=== PATIENT | female | born 1955 | race Caucasian/White ===

== ENCOUNTER 2020-08-20 12:35 | Outpatient (CLI) | payer MEDICARE, MEDICAID, SELFPAY ==
--- NOTE | ~2020-08-20 | DEXA_ITS ---
Bone Density Report Name: Dana Mejia Age: 64 Sex: Female Ethnicity: White Date of : 1955 Indication: postmenopausal; screening for osteoporosis; height loss; cancer; hysterectomy; Referring Provider: Anselmo Lynn Study: Bone densitometry was performed. Exam Date: August 20, 2020 Accession number: [id number] Bone Density: Region BMD T-score Z-score Classification AP Spine(L2, L3, L4) 1.130 0.5 2.1 Normal Femoral Neck (Left) 0.809 -0.4 1.0 Normal Total Hip (Left) 0.842 -0.8 0.3 Normal Femoral Neck (Right) 0.752 -0.9 0.5 Normal Total Hip (Right) 0.837 -0.9 0.2 Normal Femoral Neck Mean 0.780 -0.6 0.8 Normal Total Hip Mean 0.839 -0.8 0.3 Normal World Health Organization criteria for BMD impression classify patients as: Normal (T-score at or above -1.0), Osteopenia (T-score between -1.0 and -2.5), or Osteoporosis (T-score at or below -2.5). 10-year Fracture Risk: FRAX not reported because: All T-scores for Spine Total, Hip Total, Femoral Neck at or above -1.0 Clinical Information Provided by Patient: Has the following medical conditions: Cancer, Hysterectomy Patient maximum height was 67 Menopause Age: 49 No regular weight bearing exercise Drinks caffeinated beverages Onset of menses at age 18 Number of children 3 Impression: The patient has normal bone mass. Discussion: BONE DENSITY IS ABOVE THE MINIMUM DESIRABLE LEVEL AT ALL SKELETAL SITES TESTED. This patient?s bone mineral density is above the minimum desirable level (T-score -1.0 or better) at all sites measured. The patient should follow a healthful lifestyle (good nutrition with adequate calcium and vitamin D, and appropriate weight-bearing exercise). Follow-Up: Consider repeating this study in 5 years or sooner if there is some new clinical indication. Reported by: Dr. Jose Daniel Edward on 08/20/2020 1:22:00 PM. Reviewed, dictated and finalized at location [facility]
== END 2020-08-20 12:36 | disposition home or self-care (01) ==
LOC: CHSIMG 12:39
PROVIDERS: PCP Family Medicine
DX: Z79.811 Long term (current) use of aromatase inhibitors (principal)
CPT/HCPCS: 77080

== ENCOUNTER 2022-09-15 14:30 | Emergency (ER) | payer MEDICARE, MEDICAID, SELFPAY ==
--- NOTE | ~2022-09-15 | XR_ITS ---
EXAMINATION: XR chest 1V portable DATE: 09/15/2022 15:48 INDICATION: Frequent falls. Dizziness. Generalized weakness. TECHNIQUE: Portable AP upright view of the chest was obtained. COMPARISON: Chest radiograph dated 08/05/2018 FINDINGS: Lungs remain clear with no focal airspace opacities, pulmonary edema, pleural effusion or pneumothora x. Heart size is normal. Suggestion of interval left mastectomy. IMPRESSION: 1. No acute cardiopulmonary disease. Reviewed, dictated and finalized at location A.
--- NOTE | ~2022-09-15 | CT_ITS ---
EXAMINATION: CT brain wo con DATE: 09/15/2022 15:48 INDICATION: falling-FREQUENT,DIZZY,GENERAL WEAKNESS . TECHNIQUE: Computed tomography (CT) of the head was performed without intravenous contrast. The mA wa s adjusted according to patient size. Iterative reconstruction technique was employed. The dose-lengt h product was 605.33 mGy-cm. COMPARISON: 08/05/2018. FINDINGS: No acute intracranial hemorrhage or extra-axial fluid collection. No hydrocephalus, mass, or herniation. No acute ischemic infarct. Unremarkable dural venous sinus attenuation. No acute osseous abnormality. The aerated spaces are clear. Mild atrophy and chronic white matter change. Atherosclerotic intracranial calcification. Left medial occipital encephalomalacia, likely old infarct. Bilateral lens replacements. IMPRESSION: No acute intracranial process. Reviewed, dictated and finalized at location K.
[2022-09-15 15:00] VITALS: BP 96/54; PULSE 84; RESP 20; TEMP 36.6; O2SAT 93
--- NOTE | 2022-09-15 15:17 | ECG_ITS ---
Measurements Intervals [facility] Rate: 73 P: 67 [place]: 165 QRS: 1 QRSD: 86 T: 42 QT: 396 QTc: 439 Interpretive Statements SINUS RHYTHM EARLY PRECORDIAL R/S TRANSITION VOLTAGE CRITERIA FOR LVH MINIMAL Q WAVES- ANTEROLATERAL LEADS BORDERLINE ECG NO PREVIOUS ECG AVAILABLE FOR COMPARISON Electronically Signed On 09-15-2022 15:38:24 CDT by Alexandr Villela D.O.
--- NOTE | 2022-09-15 15:17 | ED.DIZZY ---
HPI - Dizziness General Chief Complaint: Dizziness Stated Complaint: dizziness Time Seen by Provider: 09/15/22 15:13 Source: patient Mode of arrival: EMS Limitations: no limitations History of Present Illness HPI Narrative: 66 year old female arrives to the Emergency Department via EMS. Patient has fallen 5 times since yesterday. Patient was started on Zoloft yesterday. States she has some headache, but did not hit her head. Denies chest pain, shortness of breath, palpitations. No recent illness. No nausea, vomiting, diarrhea. Denies any injury from fall. States she has no pre-fall symptoms. MD elicited complaint: disequilibrium Onset (ago): day(s) Timing: sudden onset Description: off-balance and difficulty walking Context: change in medication History of similar symptoms: No Exacerbating factors: nothing Relieving factors: nothing Associated symptoms: denies other symptoms Related Data Home Medications Medication Instructions Recorded Confirmed aspirin 81 mg tablet,delayed 81 mg PO DAILY 09/15/22 09/15/22 release atorvastatin 40 mg tablet 40 mg PO DAILY 09/15/22 09/15/22 clopidogrel 75 mg tablet 75 mg PO DAILY 09/15/22 09/15/22 duloxetine 30 mg capsule,delayed 30 mg PO BID 09/15/22 09/15/22 release furosemide 20 mg tablet 20 mg PO DAILY 09/15/22 09/15/22 hydroxyzine pamoate 50 mg capsule 100 mg PO HS 09/15/22 09/15/22 letrozole 2.5 mg tablet 2.5 mg PO DAILY 09/15/22 09/15/22 lisinopril 10 mg tablet 10 mg PO DAILY 09/15/22 09/15/22 omeprazole 40 mg capsule,delayed 40 mg PO DAILY 09/15/22 09/15/22 release risperidone 2 mg tablet 2 mg PO HS 09/15/22 09/15/22 sertraline 50 mg tablet (Zoloft) 50 mg PO DAILY 09/15/22 09/15/22 trazodone 100 mg tablet 100 mg PO HS 09/15/22 09/15/22 Allergies Allergy/AdvReac Type Severity Reaction Status Date / Time No Known Drug Allergies Allergy Unknown Uncoded 03/27/22 13:31 Review of Systems Review of Systems: All systems reviewed & are unremarkable except as noted in HPI and below Constitutional: Constitutional: Reports as per HPI, Reports no additional constitutional complaints, Denies chills, Denies fatigue, Denies fever(s) and Denies weakness Eyes: Eyes: Reports as per HPI, Reports no additional eye complaints and Denies change in vision ENT: Reports system reviewed and no additional complaints, except as documented Cardiovascular: Cardiovascular: Reports as per HPI, Reports no additional cardiovascular complaints, Denies chest pain, Denies rapid heart rate and Denies slow heart rate Respiratory: Respiratory: Reports as per HPI, Reports no additional respiratory complaints, Denies cough and Denies dyspnea Gastrointestinal: Gastrointestinal: Reports as per HPI, Reports no additional gastrointestinal complaints, Denies abdominal pain, Denies diarrhea, Denies nausea and Denies vomiting Genitourinary: Genitourinary: Reports no additional female genitourinary complaints, Denies nocturia and Denies dysuria Musculoskeletal: Musculoskeletal: Reports no additional musculoskeletal complaints Integumentary/Breasts: Skin/Breast: Reports system reviewed and no additional complaints, except as docu and Denies rash Neurologic: Reports system reviewed and no additional complaints, except as documented, Denies syncope, Reports headache(s), Denies focal weakness, Denies numbness and Denies weakness Exam Const: General: healthy appearing, no acute distress and alert Nutritional Appearance: well nourished Orientation/consciousness: patient oriented x3 Limitations: no limitations HENMT: Head: normal to inspection Ears: TM's normal bilaterally Face/Nose/Sinus: Normal external nose present Face and sinus: normal facial exam Mouth: Yes Normal oral and palatal mucosa present Throat: posterior oropharynx normal Eyes: Conjunctivae: conjunctivae normal Pupils: Equal, round and reactive pupils present EOM: EOMs intact bilaterally Direct Ophthalmoscopy: no photophobia Neck: Neck: norm
[2022-09-15 15:30] VITALS: BP 109/59; PULSE 81; RESP 20; O2SAT 91
[2022-09-15 16:08] LABS: Basophils Absolute Auto 0.02 K/mm3 (0.00-0.10); Basophils Percent Auto 0.3 % (0.0-1.0); Eosinophils Absolute Auto 0.01 K/mm3 (0.02-0.50); Eosinophils Percent Auto 0.1 % (1.0-6.0); Hematocrit 26.9 % (35.0-49.0); Hemoglobin 8.6 g/dL (12.0-15.0); Immature Granulocyte Absolute 0.04 K/mm3 (0.00-0.00); Immature Granulocyte Percent A 0.6 % (0.0-0.0); Lymphocytes Absolute Auto 0.62 K/mm3 (1.10-4.50); Lymphocytes Percent Auto 9.3 % (18.0-42.0); Mean Corpuscular Hemoglobin 29.5 pg (27.0-31.0); Mean Corpuscular Volume 92.1 fL (78.0-102.0); Mean Platelet Volume 9.5 fl (9.2-11.8); Monocytes Absolute Auto 0.56 K/mm3 (0.10-0.90); Monocytes Percent Auto 8.4 % (2.0-11.0); Neutrophils Absolute Auto 5.5 K/mm3 (1.7-7.2); Neutrophils Percent Auto 81.3 % (50.0-70.0); Platelet Count Result 211 K/mm3 (150-420); Red Blood Count 2.92 M/mm3 (4.20-5.40); Red Cell Distribution Width 13.9 % (11.6-14.4); White Blood Count 6.7 K/mm3 (4.8-10.8)
[2022-09-15 16:30] VITALS: BP 127/68; PULSE 79; RESP 20; O2SAT 90
[2022-09-15 16:33] LABS: Albumin Level 2.5 g/dL (3.4-5.0); Alkaline Phosphatase 116 U/L (46-116); Anion Gap 11 mmol/L (8-16); Aspartate Amino Transferase 26 U/L (15-37); Bilirubin,Total 0.2 mg/dL (0.00-1.00); Blood Urea Nitrogen 49 mg/dL (7-18); Calcium 7.9 mg/dL (8.5-10.1); Carbon Dioxide 23 mmol/L (21-32); Chloride 99 mmol/L (98-108); Estimated CRCL calculation 14 ml/min; Estimated Glomerular Filt Rate 13; Glucose 255 mg/dL (70-99); Magnesium 1.7 mg/dL (1.8-2.4); Osmolality Calculated 298 mOsm/kg (285-295); Potassium 4.1 mmol/L (3.5-5.1); Sodium 133 mmol/L (136-145); Total Protein 6.7 g/dL (6.4-8.2); Troponin I 11.2 ng/L (0.00-60.4)
[2022-09-15 16:35] LABS: Appearance Urine Clear (Clear); Bilirubin Urine Negative (Negative); Blood Urine 1+ (Negative); Color Urine Light Yellow (Yellow); Glucose Urine UA Trace (Negative); Ketones Urine Negative (Negative); Leukocyte Esterase Ur 2+ (Negative); Nitrate Urine Negative (Negative); Protein Urine 2+ (Negative); Specific Grav Ur 1.015 (1.010-1.020); Urobilinogen Urine 0.2 mg/dL (0.2-1.0)
[2022-09-15 16:38] LABS: Lactic Acid Reflex 1.1 mmol/L (0.4-2.0)
[2022-09-15 16:44] LABS: Add Urine Microscopic? YES
[2022-09-15 16:45] LABS: Amphetamine Screen Urine Negative (Negative); Barbiturate Screen Urine Negative (Negative); Benzodiazepines Screen Urine Negative (Negative); Cannabinoid Screen Urine Negative (Negative); Cocaine Screen Urine Negative (Negative); Methadone Screen Urine Negative (Negative); Opiate Screen Urine Negative (Negative); Phencyclidine Screen Urine Negative (Negative)
[2022-09-15 16:45] LABS: Bacteria Urine 4+ /hpf; Renal Epithelial Cells Urine Few /hpf; Squamous Epithelial Cell Urine Few /hpf (Few); WBC Urine >75 /hpf (0-3)
[2022-09-15 16:46] LABS: Alanine Aminotransferase 18 U/L (14-59)
[2022-09-15 17:02] VITALS: BP 129/62; PULSE 77; RESP 20; O2SAT 92
[2022-09-15 18:40] VITALS: BP 120/66; PULSE 80; RESP 20; TEMP 36.7; O2SAT 95
== END 2022-09-15 18:44 | disposition home or self-care (01) ==
PROVIDERS: Emergency Provider Emergency Medicine; PCP Family Medicine
DX: R42 Dizziness and giddiness (principal); T43.225A Adverse effect of selective serotonin reuptake inhibitors, initial encounter; N39.0 Urinary tract infection, site not specified; N18.9 Chronic kidney disease, unspecified; Z79.82 Long term (current) use of aspirin; W19.XXXA Unspecified fall, initial encounter; Z79.899 Other long term (current) drug therapy
CPT/HCPCS: 36415; 70450; 71045; 80053; 80307; 81001; 83605; 83735; 84484; 85025; 93005; 96365; 99284; J0696

== ENCOUNTER 2024-07-30 21:09 | Emergency (ER) | payer MEDICARE, MEDICAID, SELFPAY ==
[2024-07-30 21:09] VITALS: BP 198/97; PULSE 92; RESP 20; TEMP 36.1; O2SAT 100
--- OUTSIDE RECORDS SUMMARY | 2024-07-30 21:11 | XMS_ITS ---
Author Organization [facility] Address [facility] [place] [address] Care Team Providers Care Driving Instructor Name Role Phone Vijay Truong MD Primary Care Provider [phone] Rubén Miranda MD PhD Unavailable [phone] Lila James MD Unavailable [phone] Emile Berger MD Unavailable [phone] Ash Fraga MD Unavailable [phone] Active Problems Problem Noted Date Diagnosed Date Lung nodule 03/17/2024 Assessment & Plan (03/17/2024 7:38 AM CHIEF CONTROLLER TOWER): Stable. Following with pulmonology and will continue to do so. Hypertension associated with diabetes 03/17/2024 Assessment & Plan (04/27/2024 1:21 PM CHIEF CONTROLLER TOWER): This is a chronic condition which is not at goal on arrival. At goal after rest. Goal is less than 140/90 Continue lisinopril, Lasix Encouraged to monitor weight and B/P at home. Assessment & Plan (03/17/2024 7:39 AM CHIEF CONTROLLER TOWER): Normotensive. Continue lisinopril. Will continue to monitor. Colon cancer screening 03/17/2024 Assessment & Plan (03/17/2024 7:39 AM CHIEF CONTROLLER TOWER): Referral to GI for screening colonoscopy placed History of colonic polyps 03/17/2024 Encounter for screening colonoscopy 03/17/2024 Anemia of chronic renal failure, stage 4 (severe ) 03/07/2024 Assessment & Plan (03/17/2024 7:36 AM CHIEF CONTROLLER TOWER): Stable. Following with Nephrology and will continue to do so. Adverse reaction to drug 05/19/2023 Chronic renal insufficiency 05/19/2023 Falls 05/19/2023 UTI (urinary tract infection) 05/19/2023 Type 2 diabetes mellitus wit h stage 5 chronic kidney disease not on chronic dialysis, with long-term current use of insulin 06/19/2022 Assessment & Plan (01/13/2024 12:48 PM CDT): This is a chronic condition which is Not at goal, worsening . Goal is less than 7%. Personally reviewed most recent A1c - Lab Results Component Value Date HGBA1C 8.1 (H) 12/23/2023 Personally reviewed POC blood sugar- at goal of 80-180 Lab Results Component Value Date POCGLU 155 01/13/2024 Medication- continue Lantus 24 units nightly Monitor blood sugar daily. Will obtain 24 hour continuous glucose monitoring. Encouraged annual eye exam. last dilated eye exam was today in the office Monofilament foot exam completed. Protective senses - not intact eGFR- 19 Kidney function-abnormal. Awaiting shunt placement to start dialysis. Sees Dr. Arevalo. Urine microalbumin/creatinine ratio - not at goal. Goal is <30 Continue lisinopril, Lasix Assessment & Plan (04/06/2023 3:42 PM CHIEF CONTROLLER TOWER): This is a chronic condition which is at goal of less than 7%. Most likely inaccurate due to anemia. She denies any hypoglycemia Personally reviewed most recent A1c - Lab Results Component Value Date HGBA1C 6.1 04/06/2023 Personally reviewed POC blood sugar- at goal 80-180 Lab Results Component Value Date POCGLU 130 04/06/2023 Medication- Continue glargine 24 units daily Monitor blood sugar daily Encouraged annual eye exam. Monofilament foot exam completed. loss of protective senses. Personally reviewed CMP eGFR- 12 Kidney function- abnormal Urine microalbumin/creatinine ratio - not at goal <30 treated with lisinopril B/P today- at goal of <140/90. continue lisinopril Personally reviewed lipid panel. at Goal of less than 70. Continue atorvastatin Assessment & Plan (12/08/2022 1:54 PM CDT): This is a chronic condition which is poorly controlled slightly improving but not at goal of less than 7%. Personally reviewed most recent A1c - Lab Results Component Value Date HGBA1C 9.5 (H) 10/16/2022 Personally reviewed POC blood sugar- at goal 80-180 Lab Results Component Value Date POCGLU 132 12/08/2022 Medication- increase lantus 24 units daily Monitor blood sugar 2x times a day. Encouraged annual eye exam. Monofilament foot exam completed. loss of protective senses. Personally reviewed CMP eGFR- 12 Kidney function- normal Urine microalbumin/creatinine ratio - not at goal <30 treated with lisinopril B/P today- at goal of <140/90. continue lisinopril, decreased lasix 10mg daily Personally reviewed lipid panel. Not at Goal of less than 70. Continue atorvastatin. Assessment & Plan (06/19/2022 2:08 PM CHIEF CONTROLLER TOWER): This is a chronic condition which is poorly controlled, not at goal of less than 7%. Personally reviewed most recent A1c - Lab Results Component Value Date HGBA1C 9.9 05/16/2022 Personally reviewed POC blood sugar- Lab Results Component Value Date POCGLU 107 06/19/2022 not at goal 80-180 Medication-Stop januvia 25mg daily, stop glipizide 5mg daily. We will titrate insulin due to weight loss and kidney failure. Increase lantus 18 units nightly- (weight based at 0.5 mg per kg) Reduce lisinopril to 10 mg p.o. daily a.m. Monitor blood sugar 2x times a day. Encouraged annual eye exam. [facility] Monofilament foot exam completed. loss of protective senses. Offered referral to Podiatry declined Urine microalbumin/creatinine ratio - not at goal <30 treated with lisinopril Personally reviewed CMP GFR- 16. Follows with Dr. Baker for Nephrology Kidney function- normal B/P today- at goal of <140/90. BP 94/48. Reduce lisinopril to 10 mg p.o. daily Personally reviewed lipid panel. Not at Goal of less than 70. Continue atorvastatin Blurred vision, bilateral 05/21/2022 Brain lesion 05/21/2022 Lung mass 05/20/2022 Homonymous hemianopia, right 05/20/2022 History of breast cancer 03/30/2022 Encounter for annual wellness exam in Medicare p atient 01/17/2022 Assessment & Plan (03/17/2024 7:36 AM CHIEF CONTROLLER TOWER): Visit preventive in nature. We reviewed medications, chronic conditions, risk factors, lifestyle recommendations. Reviewed immunization recommendations. Follow-up in 6 months for chronic conditions and 1 year for annual wellness. Assessment & Plan (01/17/2022 10:19 AM CDT): Preventive exam; reviewed recommended preventive screenings and vaccinations. Annual influenza vaccine given today. Encouraged increased physical activity, patient states that she plans to start using stationary bike at home. Need for immunization against influenza 04/09/20 21 Assessment & Plan (04/09/2021 5:57 PM CHIEF CONTROLLER TOWER): Vaccine given in office today. Reviewed possible side effects/injection site reactions. BMI 23.0-23.9, adult 08/16/2020 Assessment & Plan (12/08/2022 1:56 PM CDT): 15 lb weight loss since last office visit Increased insulin to 24 units daily Will reestablish meals on wheels once a day States she is eating 3 meals per day in her son does the cooking Assessment & Plan (05/16/2022 5:25 PM CHIEF CONTROLLER TOWER): Weights stable. Working on diet and exercise, previously riding stationary bike. Assessment & Plan (01/17/2022 10:16 AM CDT): Discussed healthy diet and importance of regular physical activity. Assessment & Plan (10/13/2021 1:35 PM CDT): Congratulated patient on her efforts to improve diet. Discussed healthy diet and importance of regular physical activity. Assessment & Plan (07/11/2021 11:00 AM CHIEF CONTROLLER TOWER): Discussed healthy diet and importance of regular physical activity. Assessment & Plan (04/09/2021 5:57 PM CHIEF CONTROLLER TOWER): Discussed healthy diet and importance of regular physical activity. Assessment & Plan (01/21/2021 12:12 PM CDT): Discussed healthy diet and importance of regular physical activity. Assessment & Plan (08/16/2020 11:26 AM CDT): Discussed pushing lean protein & increased fluid at this time to help w/healing & upcoming xrt. Discussed healthy diet and importance of regular physical activity. BMI is acceptable for this patient. Gastroesophageal reflux disease 05/17/2020 Assessment & Plan (08/16/2020 10:08 AM CDT): Omeprazole 40mg daily. Reviewed provocative foods to avoid: caffeine, citrus, ETOH, carbonated drinks, fried/fatty/fast foods & rich/creamy sauces. Reviewed diet/exercise recommendations: 20-30min physicaly activity daily at minimum. Reviewed med Ses & scheduling. Weight loss will help improve GERD sxs. Keep HOB elevated 30 degrees & not eat 2-3 hrs before bedtime. Assessment & Plan (05/17/2020 1:10 PM CHIEF CONTROLLER TOWER): Omeprazole refilled. Reviewed provocative foods to avoid: caffeine, citrus, ETOH, carbonated drinks, fried/fatty/fast foods & rich/creamy sauces. Reviewed diet/exercise recommendations: 20-30min physicaly activity daily at minimum. Reviewed med Ses & scheduling. Weight loss will help improve GERD sxs. Keep HOB elevated 30 degrees & not eat 2-3 hrs before bedtime. Regional lymph node metastasis present Assessment & Plan (05/17/2020 1:09 PM CHIEF CONTROLLER TOWER): L axillary lymph node. Anxious re: new L breast ca dx. Anxious re: pending treatments. Discussed at length during appt. Copies of recent screening/diagnostic mamm & ultrasound of L breast given to mrs Mjeia. Discussed lymph node involvement. Referral placed to Dr James at [facility]. Aware that her office will call her to set up but number # incase call not rec'd. Referral printed for Mrs Mejia to have address/phone #. Answered any/all questions. aware to call if further questions after she's left. 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 To have repeat mammogram of right breast in 1 year. No evidence of recurrence on 03/2021 mammogram. Assessment & Plan (01/21/2021 12:15 PM CDT): Follows with oncology q 3 months, next office visit 02/15/21. Currently on Letrozole. 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 L lymph node also w/metastatic carcinoma. 06/05/20 appt w/Dr James: grade I, estrogen receptor positive, progesterone receptor positive, her 2 Kaylen not amplified. Recommended complete L mastectomy. Discussed reconstructive surgery options. Also discussed adjuvant therapy d/t extent of disease. Will have endocrine therapy & radiation. Will arrange medical oncology consultation. 07/02/20 had SDS for L breast mastectomy 1st radiation treatment will start 08/27/20. Will have daily M-f, last scheduled 09/17/20. Has appt today w/Dr Lynn to see if chemo necessary. Assessment & Plan (05/17/2020 1:08 PM CHIEF CONTROLLER TOWER): Anxious re: new L breast ca dx. Anxious re: pending treatments. Discussed at length during appt. Copies of recent screening/diagnostic mamm & ultrasound of L breast given to mrs Mejia. Discussed lymph node involvement. Referral placed to Dr James at [facility]. Aware that her office will call her to set up but number # incase call not rec'd. Referral printed for Mrs Mejia to have address/phone #. Answered any/all questions. aware to call if further questions after she's left. Dyslipidemia associated with type 2 diabetes mary litus 02/08/2020 Assessment & Plan (04/27/2024 1:21 PM CHIEF CONTROLLER TOWER): This is a chronic condition which is at goal . Goal is LDL less than 70 Continue atorvastatin Encouraged to eat healthy, include fresh fruits and vegetables daily and avoid eating fried foods more than once per week. Assessment & Plan (03/17/2024 7:36 AM CHIEF CONTROLLER TOWER): Stable. Continue atorvastatin. Tolerating without side effects. Will continue to monitor. Assessment & Plan (01/13/2024 12:49 PM CDT): This is a chronic condition which is at goal . Goal is LDL less than 70 Continue atorvastatin Encouraged to eat healthy, include fresh fruits and vegetables daily and avoid eating fried foods more than once per week. Assessment & Plan (04/06/2023 3:43 PM CHIEF CONTROLLER TOWER): This is a chronic condition which is at goal of LDL less than 70 Continue atorvastatin Encouraged to eat healthy, include fresh fruits and vegetables daily and avoid eating fried foods more than once per week. Encouraged to take medications as prescribed. Assessment & Plan (12/08/2022 1:55 PM CDT): This is a chronic condition which is at goal of LDL less than 70 Continue atorvastatin. Encouraged to eat healthy, include fresh fruits and vegetables daily and avoid eating fried foods more than once per week. Encouraged to take medications as prescribed. Assessment & Plan (06/19/2022 2:10 PM CHIEF CONTROLLER TOWER): This is a chronic condition which is not at goal of LDL less than 70 Continue atorvastatin Encouraged to eat healthy, include fresh fruits and vegetables daily and avoid eating fried foods more than once per week. Encouraged to take medications as prescribed. Assessment & Plan (05/16/2022 5:17 PM CHIEF CONTROLLER TOWER): Continue current regimen. Assessment & Plan (01/17/2022 10:16 AM CDT): 01/10/22 TC 186 TRG 421 HDL 29 LDL 90 Continue current regimen, recommended fish oil supplementation and following low fat diet. Will repeat labs prior to next office visit. Assessment & Plan (10/13/2021 1:35 PM CDT): Continue atorvastatin daily. Assessment & Plan (07/11/2021 11:16 PM CHIEF CONTROLLER TOWER): Reviewed previous lipid panel. Doing well on atorvastatin 40 mg daily, denies any medication side effects. Assessment & Plan (04/09/2021 6:00 PM CHIEF CONTROLLER TOWER): Results for orders placed or performed in visit on 04/09/21 POCT hemoglobin A1c Result Value Ref Range Hemoglobin A1C, POC 9.7 POCT lipid panel Result Value Ref Range Cholesterol, POC 202 mg/dL HDL, POC 28 mg/dL Triglycerides, POC 478 mg/dL LDL, Direct, POC 78.4 mg/dL Chol/HDL Ratio, POC 7.2 Non-HDL Cholesterol, POC 174 mg/dL Cholesterol Total, POC 202 mg/dL Continue medication without change at this time. Assessment & Plan (08/16/2020 11:24 AM CDT): 12/22/18 RX=425 HDL=43 VK=219 LDL=88 TC/HDL=4.74 07/04/19 TC=78 HDL=32 GI=508 MFU=428 TC/HDL=10.3 11/07/19 TL=148 DL=27 KL=647 TBJ=488 CALC TC/HDL=12.0 to lab 02/09/20 WT=582 HDL=38 YM=674 LDL=92 TC/HLD=5.0 The 10-year ASCVD risk score (Randa BARRY Jr., et al., 2013) is: 11.5% Values used to calculate the score: Age: 64 years Sex: Female Is Non- : No Diabetic: Yes Tobacco smoker: No Systolic Blood Pressure: 128 mmHg Is BP treated: Yes HDL Cholesterol: 36 mg/dL Total Cholesterol: 166 mg/dL Atorvastatin 40mg daily, fenofibrate 50mg daily. Patient should focus on limiting bad fats in the diet and using exercise as a way to improve the lipid status. Secondary prevention. Reviewed medications. Denies any statin Ses. Reviewed diet/exercise recommendations. Reviewed red flags. Assessment & Plan (05/17/2020 1:10 PM CHIEF CONTROLLER TOWER): We will check labs and make adjustments to medications as needed. Patient should focus on limiting bad fats in the diet and using exercise as a way to improve the lipid status. Secondary prevention. Reviewed medications. Lipid panel ordered; will call w/results when rec'd. Denies any statin Ses. Reviewed diet/exercise recommendations. Reviewed red flags. Assessment & Plan (02/08/2020 9:15 PM CDT): We will check labs and make adjustments to medications as needed. Patient should focus on limiting bad fats in the diet and using exercise as a way to improve the lipid status. Secondary prevention. Reviewed medications. Lipid panel ordered; will call w/results when rec'd. Denies any statin Ses. Reviewed diet/exercise recommendations. Reviewed red flags. Stage 4 chronic kidney disea se due to type 2 diabetes mellitus 11/06/2019 Overview (05/19/2023): Last Assessment & Plan: 09/18/20 GFR=17 11/08/20 GFR=26 02/14/21 GFR=22 10/01/21 GFR=27 Scheduled with nephrology 10/25/21. Assessment & Plan (05/16/2022 5:23 PM CHIEF CONTROLLER TOWER): Following with nephrology. Discussed importance of well controlled blood pressure and diabetes management. Assessment & Plan (01/17/2022 9:44 AM CDT): 09/18/20 GFR=17 11/08/20 GFR=26 02/14/21 GFR=22 10/01/21 GFR=27 01/10/22 GFR=20 Following with nephrology. Assessment & Plan (10/13/2021 1:41 PM CDT): 09/18/20 GFR=17 11/08/20 GFR=26 10 GFR=22 10/01/21 GFR=27 Scheduled with nephrology 10/25/21. Assessment & Plan (04/09/2021 5:59 PM CHIEF CONTROLLER TOWER): 09/18/20 GFR=17 11/08/20 GFR=26 02/14/21 GFR=22 Updated referral to nephrology. Patient given contact information. Will repeat lab work today. Assessment & Plan (01/21/2021 12:08 PM CDT): GFR improvement with discontinuation of metformin. 09/18/20 GFR=17 11/08/20 GFR=26 Discussed need for medication and diet compliance. Given referral to nephrology today. Assessment & Plan (08/16/2020 11:23 AM CDT): GFR 11/07/19=35 GFR 02/09/20=35 GFR 05/17/20=31 Will stop metformin & switch to glipizide d/t decreasing renal function. Assessment & Plan (05/17/2020 1:11 PM CHIEF CONTROLLER TOWER): GFR 11/07/19=35 GFR 02/09/20=35. Has been stable. Will recheck today. Assessment & Plan (02/09/2020 9:31 AM CDT): 11/07/19 GFR=35. Labs ordered; will recheck today. Assessment & Plan (11/07/2019 9:59 AM CDT): CMP drawn 09/28/18 show GFR=27, BUN=45, creatinine=1.92 CMP ordered today. Will contact w/results once rec'd. Will also fax results to Dr Berger as requested by Mrs Mejia. 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 Will continue current regimen for now, lantus 13 units nightly, januvia 25 mg daily and glipizide 5 mg daily. Encouraged eating regularly, to avoid skipping breakfast. Denies any s/s of hypo/hyperglycemia. Assessment & Plan (01/17/2022 10:16 AM CDT): Lab Results Component Value Date HGBA1C 8.3 (H) 01/10/2022 HGBA1C 8.2 10/11/2021 HGBA1C 10.5 07/11/2021 Increase lantus from 10 units nightly to 13 units. Discussed following diet recommendations from DM educator. Patient interested in increasing exercise, plans to use stationary bike at home. Taking Statin. Loss of protective senses on bilateral feet. No breakdown. Reviewed daily foot care. Assessment & Plan (10/13/2021 1:39 PM CDT): Improved control with addition of basal insulin. Patient out of glipizide for the past 1 month. Continue keeping bg log. Follow up in 3 months. Lab Results Component Value Date HGBA1C 8.2 10/11/2021 HGBA1C 10.5 07/11/2021 HGBA1C 9.7 04/09/2021 Assessment & Plan (07/11/2021 11:17 PM CHIEF CONTROLLER TOWER): Lab Results Component Value Date HGBA1C 10.5 07/11/2021 HGBA1C 9.7 04/09/2021 HGBA1C 11.7 01/07/2021 Patient agreeable to meet with life educator to discuss healthy food choices to improve blood glucose. Referral placed. Will start basal insulin 10 units nightly, reviewed medication administration, follow up in 3 months and bring copy of blood sugar log to next apt. Reviewed s/s of hypo/hypergylcemia. Assessment & Plan (04/09/2021 6:08 PM CHIEF CONTROLLER TOWER): Lab Results Component Value Date HGBA1C 9.7 04/09/2021 HGBA1C 11.7 01/07/2021 HGBA1C 8.2 (H) 09/18/2020 Reviewed medications scheduling. Given referral to nephrology. Patient declines insulin. Foot exam completed. Patient instructed to schedule diabetic eye exam. Stressed the importance of monitoring dietary intake in worsening diabetes course. Patient to record fasting blood sugar and bring to 3 month follow up. Assessment & Plan (01/21/2021 12:11 PM CDT): Lab Results Component Value Date HGBA1C 11.7 01/07/2021 HGBA1C 8.2 (H) 09/18/2020 HGBA1C 7.7 (H) 05/17/2020 Uncontrolled. Patient with worsening renal function and recent discontinuation of metformin. A1c sig increased today. Will add Januvia 25 daily. Reviewed medications scheduling. Given referral to nephrology. Patient declines insulin. Foot exam completed. Patient instructed to schedule diabetic eye exam. Stressed the importance of monitoring dietary intake in worsening diabetes course. Patient to record fasting blood sugar and bring to 3 month follow up. Assessment & Plan (08/16/2020 11:24 AM CDT): Lab Results Component Value Date HGBA1C 7.7 (H) 05/17/2020 HGBA1C 9.6 (H) 02/09/2020 HGBA1C 8.3% 11/07/2019 Has been taking Metformin 1000mg bid. GFR 11/07/19=35 GFR 02/09/20=35 GFR 05/17/20=31 Will stop metformin & switch to glipizide 5mg daily d/t decreasing renal function. Reviewed dietary/exercise recommendations. Instructed to perform daily foot check. Reviewed medication side effects & scheduling. To check/record FSBS & bring to appointments. Labs ordered; will call with results when received. To make follow up appointment in 3 months. Reviewed red flags; what would warrant further evaluation. Will recheck CMP in ~1 month Assessment & Plan (05/17/2020 1:09 PM CHIEF CONTROLLER TOWER): Lab Results Component Value Date HGBA1C 9.6 (H) 02/09/2020 HGBA1C 8.3% 11/07/2019 HGBA1C 7.3 07/04/2019 Reviewed dietary/exercise recommendations. Instructed to perform daily foot check. Reviewed medication side effects & scheduling. To check/record FSBS & bring to appointments. Labs ordered; will call with results when received. To make follow up appointment in 3 months. Reviewed red flags; what would warrant further evaluation. Assessment & Plan (02/08/2020 9:16 PM CDT): Lab Results Component Value Date HGBA1C 8.3% 11/07/2019 HGBA1C 7.3 07/04/2019 HGBA1C 6.3 09/20/2018 Reviewed dietary/exercise recommendations. Instructed to perform daily foot check. Reviewed medication side effects & scheduling. To check/record FSBS & bring to appointments. Labs ordered; will call with results when received. To make follow up appointment in 3 months. Reviewed red flags; what would warrant further evaluation. Assessment & Plan (11/07/2019 10:02 AM CDT): Lab Results Component Value Date HGBA1C 8.3% 11/07/2019 HGBA1C 7.3 07/04/2019 HGBA1C 6.3 09/20/2018 Reviewed upward tending A1c. Reviewed diet: eating whatever she wants. Reviewed proper intake/portions. Sedentary at present time. Stressed need to get up/moving 20-30 minutes/day. Reviewed dietary/exercise recommendations. Instructed to perform daily foot check. Reviewed medication side effects & scheduling. To check/record FSBS & bring to appointments. Labs ordered; will call with results when received. To make follow up appointment in 3 months. Reviewed red flags; what would warrant further evaluation. Last eye exam december 2018 at [facility]. Letter sent to get copy of results from that date. Type 2 diabetes mellitus wit h hypoglycemia without coma, with long-term current use of insulin 11/06/2019 Overview (05/19/2023): Last Assessment & Plan: Improved control with addition of basal insulin. Patient out of glipizide for the past 1 month. Continue keeping bg log. Follow up in 3 months. Lab Results Component Value Date HGBA1C 8.2 10/11/2021 HGBA1C 10.5 07/11/2021 HGBA1C 9.7 04/09/2021 Assessment & Plan (04/27/2024 1:21 PM CHIEF CONTROLLER TOWER): This is a chronic condition which is at goal with hypoglycemia . Goal is less than 7%. Personally reviewed most recent A1c - Lab Results Component Value Date HGBA1C 5.9 04/27/2024 Personally reviewed POC blood sugar- not at goal- hypglycemia of 80-180 Lab Results Component Value Date POCGLU 69 04/27/2024 Medication- decrease Lantus 18 units daily. Monitor blood sugar continuously with cgm. Encouraged annual eye exam. last dilated eye exam [facility]. Monofilament foot exam completed. Protective senses - not intact eGFR- 15 Kidney function-sees Dr. Arevalo. Starting dialysis soon Urine microalbumin/creatinine ratio - elevated, not at goal. Goal is <30 Continue lasix, lisinopril. Assessment & Plan (03/17/2024 7:35 AM CHIEF CONTROLLER TOWER): Improving. Continue following with endocrinology. Red flags reviewed. Hypertensive disorder 07/04/2019 Overview (05/19/2023): Last Assessment & Plan: Stable; continue current medication regimen. Assessment & Plan (04/06/2023 3:43 PM CHIEF CONTROLLER TOWER): This is a chronic condition which is at goal of less than 140/90 Personally reviewed labs. Continue lisinopril Encouraged to monitor weight and B/P at home Encouraged to take medications as prescribed. Assessment & Plan (12/08/2022 1:55 PM CDT): This is a chronic condition which is at goal of less than 140/90 Personally reviewed labs. Continue lisinopril and decrease lasix 10mg daily. Encouraged to monitor weight and B/P at home Encouraged to take medications as prescribed. Assessment & Plan (06/19/2022 2:09 PM CHIEF CONTROLLER TOWER): This is a chronic condition which is at goal of less than 140/90 Hypotension 94/48 Personally reviewed labs. Decrease lisinopril to 10 mg p.o. daily Encouraged to take medications as prescribed. Assessment & Plan (05/16/2022 5:23 PM CHIEF CONTROLLER TOWER): Blood pressure well controled today. No changes in current regimen. Assessment & Plan (01/17/2022 10:14 AM CDT): Condition is stable Discussed/ordered labs, encouraged healthy, low carbohydrate lifestyle and at least 150min/week of exercise, continue on lisinopril 20 mg daily. BP checked by myself 118/80 Assessment & Plan (10/13/2021 1:41 PM CDT): Stable; continue current medication regimen. Assessment & Plan (07/11/2021 11:17 PM CHIEF CONTROLLER TOWER): BP well controlled today. No changes in current medication regimen. Assessment & Plan (04/09/2021 6:10 PM CHIEF CONTROLLER TOWER): Patient encouraged to take BP medication as soon as she gets home. Will continue checking BP with home cuff. Reviewed importance of BP control and s/s of HTN warranting evaluation. Assessment & Plan (01/21/2021 12:10 PM CDT): Patient taking 20mg lisinopril and 20mg furosemide daily. Encouraged continued home bp monitoring. Discussed BP goal of <130/90. No changes at this time. Reviewed dietary recommendations and sodium intake <2000mg/day. Assessment & Plan (08/16/2020 10:02 AM CDT): Lisinopril 20mg daily. Furosemide 20mg daily The blood pressure is under good control. Ideally it should be under 130/80. Continue medications without adjustment. Continue efforts to eat well (4-5 fruits and veggies) daily and exercise for about 30 min nearly every day. Watch salt intake, keeping to less than 2000mg per day. Limit alcohol. Include strategies to cope with stress. Labs ordered today; will contact w/results once received. Assessment & Plan (05/17/2020 1:09 PM CHIEF CONTROLLER TOWER): Does not check BP at home. The blood pressure is under good control. Ideally it should be under 130/80. Continue medications without adjustment. Continue efforts to eat well (4-5 fruits and veggies) daily and exercise for about 30 min nearly every day. Watch salt intake, keeping to less than 2000mg per day. Limit alcohol. Include strategies to cope with stress. Labs ordered today; will contact w/results once received. Assessment & Plan (02/08/2020 9:12 PM CDT): The blood pressure is under good control. Ideally it should be under 130/80. Continue medications without adjustment. Continue efforts to eat well (4-5 fruits and veggies) daily and exercise for about 30 min nearly every day. Watch salt intake, keeping to less than 2000mg per day. Limit alcohol. Include strategies to cope with stress. Labs ordered today; will contact w/results once received. Assessment & Plan (11/07/2019 9:59 AM CDT): The blood pressure is under good control. Ideally it should be under 130/80. Continue medications without adjustment. Continue efforts to eat well (4-5 fruits and veggies) daily and exercise for about 30 min nearly every day. Watch salt intake, keeping to less than 2000mg per day. Limit alcohol. Include strategies to cope with stress. Labs ordered today; will contact w/results once received. Screen for colon cancer 09/29/2018 Overview (09/29/2018): Added automatically from request for surgery [id number] Fibromyalgia 01/01/2017 Assessment & Plan (03/17/2024 7:36 AM CHIEF CONTROLLER TOWER): Stable on duloxetine. No changes. Will continue to monitor. Primary osteoarthritis involving multiple joints 01/01/2017 Major depressive disorder 01/01/2017 Assessment & Plan (07/11/2021 11:04 AM CHIEF CONTROLLER TOWER): Managed by Dr. Berger at [facility], following up every 3 months. Continues seeing therapist once monthly. Discussed increasing frequency of counseling to once weekly if able. PHQ today 21. Discussed importance of regular exercise/ healthy diet and general healthy lifestyle to improve moods. Lives at home with son and two grandsons. Reports supportive family. Denies any SI/HI. Assessment & Plan (04/09/2021 10:47 AM CHIEF CONTROLLER TOWER): PHQ=19 (worsening with breast CA diagnosis) Hydroxyzine 25mg q6hr prn, risperidone 2mg nightly, trazodone 100mg nightly, duloxetine DR 60mg daily, amitriptyline 25mg nightly. Managed by Dr Berger at [facility]. Sees him q3mos. Also sees therapist Kay at [facility]. Denies suicidal/homicidal ideation. Assessment & Plan (08/16/2020 11:22 AM CDT): Hydroxyzine 25mg q6hr prn, risperidone 2mg nightly, trazodone 100mg nightly, duloxetine DR 60mg daily, amitriptyline 25mg nightly. Managed by Dr Berger at [facility]. Doing phone visits with him q3mos. Also with therapist Kay at [facility]. Reports good control of depression w/current regimen. No changes to be made at this time. Reviewed med Ses & scheduling. Reviewed red flags. Assessment & Plan (02/09/2020 9:30 AM CDT): Following w/Dr Berger at [facility] every 3 months. following w/monthly therapy appts w/Mellisa Davidson at [facility]. Verified current medications. Will fax lab results to Dr Berger at [facility] once completed. Reports good control of depression w/current regimen. No changes to be made at this time. Reviewed med Ses & scheduling. Reviewed red flags. Assessment & Plan (11/07/2019 10:00 AM CDT): Followed by Dr Berger at [facility]. Reports good control of depression w/current regimen. No changes to be made at this time. Reviewed med Ses & scheduling. Reviewed red flags. Current Treatment and Therapy Plans No current plan information found. Other Current Plans darbepoetin (ARANESP) Injection - Chronic Renal Failure* Plan Start Date: 06/22/2024 Plan Provider:Ashu Arevalo MD Linked Problems Anemia of chronic renal fail ure, stage 4 (severe) (HCC) Treatment Medications No medications scheduled. Past Treatment and Therapy Plans Radiation Treatments * Course [id number]/27/2020 - 09/21/2020 Treatment Period Energy Fraction Dose Fractions Total Dose Plans Planned LT CHESTWALL 08/27/2020 - 09/21/2020 266 16 / 4,256 Reference Points Delivered LT CW 202008/27/2020 - 09/21/2020 4,256 Resolved Problems Problem Noted Date Diagnosed Date Resolved Date BMI 27.0-27.9,adult 02/09/2020 08/17/19 21 Assessment & Plan (05/17/2020 1:11 PM CHIEF CONTROLLER TOWER): Discussed healthy diet and importance of regular physical activity. BMI is acceptable for this patient. Assessment & Plan (02/09/2020 9:32 AM CDT): Has started exercising again. Riding stationary bike. Reviewed need to lose weight, reviewed health benefits. Reviewed recommendations for daily intake & activity 20-30 minutes/day. Discussed healthy diet and importance of regular physical activity. Need for influenza vaccination 02/09/2020 08/16/2020 Assessment & Plan (02/09/2020 9:32 AM CDT): Flu vaccine given today. Discussed possible tenderness/redness at injection site. BMI 26.0-26.9,adult 11/07/2019 02/09/20 Assessment & Plan (11/07/2019 9:35 AM CDT): Discussed healthy diet and importance of regular physical activity. BMI is acceptable for this patient. Encounter for Medicare annual wellness exam 11/06/2019 05/17/2020 Assessment & Plan (11/06/2019 10:48 PM CDT): 1. Eat a healthy diet: focus on lean meats and proteins, more fruits, vegetables and whole grains and low in sugars and fats. Limit red meat and avoid processed meat. 2. Maintain a healthy weight; avoid being overweight. Aim for a normal body mass index (BMI) of 18.5-24.9. Help learning to eat healthier, we can set up appointment with wellness spa manager/call center recruiter. 3. Have an active lifestyle, strive for 30 minutes of moderate exercise 5 times a week and strength or resistance training at least twice a week. 4. Use broad-spectrum (UVA+UVB) sunscreen with SPF 30 or greater, is water resistant, limit time spent in the sun (10 am-4pm), wear hat, wear UV protective clothing, wear sunglasses. Never use a tanning bed. Skin that was irradiated may be more sensitive over your lifetime. 5. Do not smoke or chew tobacco. 6. Limit alcohol intake, 1 drink per day for a woman. Ulcer of great toe, left, li mited to breakdown of skin 03/25/2019 07/04/2019 Cellulitis of external ear 03/11/2016 0 11/06/2019 Overview (08/14/2016): Cellulitis of left ear Type 1 diabetes mellitus 11/22/2013 Overview (08/14/2016): DMI OPHTH UNCNTRLD Type 1 diabetes mellitus without complication 09/25/19 14 04/30/2017 Overview (08/14/2016): DMI WO CMP UNCNTRLD Pure hypercholesterolemia 09/24/2013 Overview (08/14/2016): PURE HYPERCHOLESTEROLEM Assessment & Plan (11/07/2019 10:01 AM CDT): 12/22/18 BQ=742 HDL=43 WD=005 LDL=88 TC/HDL=4.74 07/04/19 TC=78 HDL=32 VU=428 AWL=054 TC/HDL=10.3 11/07/19 GG=200 DL=27 DG=093 KVK=627 CALC TC/HDL=12.0 Copy of today's lipid panel given to mrs Mejia. Will have tests verified/repeated at lab today. Aware that atorvastatin will need increased if lipid panel elevated.
--- OUTSIDE RECORDS SUMMARY | 2024-07-30 21:12 | XMS_ITS | Clinical Summary ---
Author Organization [facility] Address [facility] [place] [address] Care Team Providers Care Filing Clerk Name Role Phone Vijay Truong MD Primary Care Provider [phone] Rubén Miranda MD PhD Unavailable [phone] Lila James MD Unavailable [phone] Emile Berger MD Unavailable [phone] Ash Fraga MD Unavailable [phone] Allergies No known active allergies Medications blood-glucose meter kit Use to test blood sugar once daily. 1 each 04/07/20 18 Active hydrOXYzine (VISTARIL) 50 mg capsuleIndications: Type 2 diabetes mellitus with hyperglycemia, with long-term current use of insulin ([facility]) 06/16/19 23 Active lancets miscIndications:Typ e 2 diabetes mellitus with peripheral neuropathy (HCC) 1 each by other route as directed Check fingerstick daily 100 each 1 11/18/19 23 Active bisacodyl EC (DULCOLAX EC) 5 mg EC tabletIndications:c onstipation Take 1 tablet (5 mg total) by mouth daily as needed for constipation E11.65 30 tablet 12/09/19 23 Active docusate sodium (COLACE) 100 mg capsuleIndications: constipation Take 1 capsule (100 mg total) by mouth 2 (two) times a day 30 capsule 11 12/09/19 23 Active furosemide (LASIX) 20 mg tablet Take 1/2 tablet daily. 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 E11.65 100 each 4 02/17/[address] (PROTONIX) 40 mg EC tablet Take 1 tablet (40 mg total) by mouth daily 90 tablet 4 03/16/20 24 025 Active calcitRIOL (ROCALTROL) 0.25 mcg capsule Take 1 capsule (0.25 mcg total) by mouth 03/02/20 24 Active atorvastatin (LIPITOR) 40 mg tabletIndications:D yslipidemia associated with type 2 diabetes mellitus ([facility]) Take 1 tablet (40 mg total) by mouth daily 90 tablet 4 03/17/20 24 Active aspirin 81 mg enteric coated tablet Take 1 tablet (81 mg total) by mouth daily 90 tablet 4 03/17/20 24 Active clopidogreL (PLAVIX) 75 mg tablet Take 1 tablet (75 mg total) by mouth daily 90 tablet 3 03/17/[address] (CYMBALTA) 30 mg capsule Take 1 capsule (30 mg total) by mouth 2 (two) times a day 180 capsule 4 03/17/20 24 025 Active lisinopriL (PRINIVIL,ZESTRIL) 10 mg tabletIndications:H ypertension associated with diabetes ([facility]) Take 2 tablets (20 mg total) by mouth daily 180 tablet 3 03/17/20 24 Active traZODone (DESYREL) 100 mg tablet Take 1 tablet (100 mg total) by mouth nightly 90 tablet 4 03/17/20 24 Active insulin glargine 100 unit/mL (3 mL) pen for injectionIndication s:Type 2 diabetes mellitus with hypoglycemia without coma, with long-term current use of insulin (HCC) Inject 18 Units under the skin nightly E11.65 15 mL 11 04/27/20 24 Active oxyCODONE (ROXICODONE) 5 mg immediate release tablet Take 1 tablet (5 mg total) by mouth every 6 (six) hours as needed 01/28/20 24 025 Active Problems Problem Noted Date Diagnosed Date Lung nodule 03/17/2024 Assessment & Plan (03/17/2024 7:38 AM TECHNICAL PUBLICATIONS WRITER): Stable. Following with pulmonology and will continue to do so. Hypertension associated with diabetes 03/17/2024 Assessment & Plan (04/27/2024 1:21 PM TECHNICAL PUBLICATIONS WRITER): This is a chronic condition which is not at goal on arrival. At goal after rest. Goal is less than 140/90 Continue lisinopril, Lasix Encouraged to monitor weight and B/P at home. Assessment & Plan (03/17/2024 7:39 AM TECHNICAL PUBLICATIONS WRITER): Normotensive. Continue lisinopril. Will continue to monitor. Colon cancer screening 03/17/2024 Assessment & Plan (03/17/2024 7:39 AM TECHNICAL PUBLICATIONS WRITER): Referral to GI for screening colonoscopy placed History of colonic polyps 03/17/2024 Encounter for screening colonoscopy 03/17/2024 Anemia of chronic renal failure, stage 4 (severe ) 03/07/2024 Assessment & Plan (03/17/2024 7:36 AM TECHNICAL PUBLICATIONS WRITER): Stable. Following with Nephrology and will continue [...] Lasix Assessment & Plan (04/06/2023 3:42 PM TECHNICAL PUBLICATIONS WRITER): This is a chronic condition which is [...] atorvastatin. Assessment & Plan (06/19/2022 2:08 PM TECHNICAL PUBLICATIONS WRITER): This is a chronic condition which is [...] 01/17/2022 Assessment & Plan (03/17/2024 7:36 AM TECHNICAL PUBLICATIONS WRITER): Visit preventive in nature. We reviewed medications, [...] 21 Assessment & Plan (04/09/2021 5:57 PM TECHNICAL PUBLICATIONS WRITER): Vaccine given in office today. Reviewed possible [...] cooking Assessment & Plan (05/16/2022 5:25 PM TECHNICAL PUBLICATIONS WRITER): Weights stable. Working on diet and exercise, previously riding stationary bike. Assessment & Plan (01/17/2022 10:16 AM CDT): Discussed healthy diet and importance of regular physical activity. Assessment & Plan (10/13/2021 1:35 PM CDT): Congratulated patient on her efforts to improve diet. Discussed healthy diet and importance of regular physical activity. Assessment & Plan (07/11/2021 11:00 AM TECHNICAL PUBLICATIONS WRITER): Discussed healthy diet and importance of regular physical activity. Assessment & Plan (04/09/2021 5:57 PM TECHNICAL PUBLICATIONS WRITER): Discussed healthy diet and importance of regular [...] bedtime. Assessment & Plan (05/17/2020 1:10 PM TECHNICAL PUBLICATIONS WRITER): Omeprazole refilled. Reviewed provocative foods to avoid: caffeine, citrus, ETOH, carbonated drinks, fried/fatty/fast foods & rich/creamy sauces. Reviewed diet/exercise recommendations: 20-30min physicaly activity daily at minimum. Reviewed med Ses & scheduling. Weight loss will help improve GERD sxs. Keep HOB elevated 30 degrees & not eat 2-3 hrs before bedtime. Regional lymph node metastasis present Assessment & Plan (05/17/2020 1:09 PM TECHNICAL PUBLICATIONS WRITER): L axillary lymph node. Anxious re: new L breast ca dx. Anxious re: pending treatments. Discussed at length during appt. Copies of recent screening/diagnostic mamm & ultrasound of L breast given to mrs Mejia. Discussed lymph node involvement. Referral placed to Dr James at [facility]. Aware that her office will call her [...] from 05/09/2020:Stage IIA(cT2, cN1(f), cM0, G1, ER+, UT+, HER2-) - Signed by Rubén Miranda MD PhD on 07/27/2020 Pathologic stage from 07/02/2020:Stage IA(pT2, pN1a(sn), cM0, G1, ER+, UT+, HER2- ) - Signed by Rubén Miranda MD PhD on 07/27/2020 Assessment & Plan (01/17/2022 10:19 AM CDT): Assessment & Plan (04/09/2021 6:01 PM TECHNICAL PUBLICATIONS WRITER): Follows with oncology, continues letrozone. To have [...] necessary. Assessment & Plan (05/17/2020 1:08 PM TECHNICAL PUBLICATIONS WRITER): Anxious re: new L breast ca dx. Anxious re: pending treatments. Discussed at length during appt. Copies of recent screening/diagnostic mamm & ultrasound of L breast given to mrs Mejia. Discussed lymph node involvement. Referral placed to Dr James at [facility]. Aware that her office will call her to set up but number # incase call not rec'd. Referral printed for Mrs Mejia to have address/phone #. Answered any/all questions. aware to call if further questions after she's left. Dyslipidemia associated with type 2 diabetes mary green 02/08/2020 Assessment & Plan (04/27/2024 1:21 PM TECHNICAL PUBLICATIONS WRITER): This is a chronic condition which is at goal . Goal is LDL less than 70 Continue atorvastatin Encouraged to eat healthy, include fresh fruits and vegetables daily and avoid eating fried foods more than once per week. Assessment & Plan (03/17/2024 7:36 AM TECHNICAL PUBLICATIONS WRITER): Stable. Continue atorvastatin. Tolerating without side effects. Will continue to monitor. Assessment & Plan (01/13/2024 12:49 PM CDT): This is a chronic condition which is at goal . Goal is LDL less than 70 Continue atorvastatin Encouraged to eat healthy, include fresh fruits and vegetables daily and avoid eating fried foods more than once per week. Assessment & Plan (04/06/2023 3:43 PM TECHNICAL PUBLICATIONS WRITER): This is a chronic condition which is [...] prescribed. Assessment & Plan (06/19/2022 2:10 PM TECHNICAL PUBLICATIONS WRITER): This is a chronic condition which is not at goal of LDL less than 70 Continue atorvastatin Encouraged to eat healthy, include fresh fruits and vegetables daily and avoid eating fried foods more than once per week. Encouraged to take medications as prescribed. Assessment & Plan (05/16/2022 5:17 PM TECHNICAL PUBLICATIONS WRITER): Continue current regimen. Assessment & Plan (01/17/2022 10:16 AM CDT): 01/10/22 TC 186 TRG 421 HDL 29 LDL 90 Continue current regimen, recommended fish oil supplementation and following low fat diet. Will repeat labs prior to next office visit. Assessment & Plan (10/13/2021 1:35 PM CDT): Continue atorvastatin daily. Assessment & Plan (07/11/2021 11:16 PM TECHNICAL PUBLICATIONS WRITER): Reviewed previous lipid panel. Doing well on atorvastatin 40 mg daily, denies any medication side effects. Assessment & Plan (04/09/2021 6:00 PM TECHNICAL PUBLICATIONS WRITER): Results for orders placed or performed in [...] & Plan (08/16/2020 11:24 AM CDT): 12/22/18 CS=292 HDL=43 KE=425 LDL=88 TC/HDL=4.74 07/04/19 TC=78 HDL=32 RW=313 TQB=880 TC/HDL=10.3 11/07/19 TI=400 DL=27 FC=760 WRT=019 CALC TC/HDL=12.0 to lab 02/09/20 TE=043 HDL=38 YV=220 LDL=92 TC/HLD=5.0 The 10-year ASCVD risk score [...] flags. Assessment & Plan (05/17/2020 1:10 PM TECHNICAL PUBLICATIONS WRITER): We will check labs and make adjustments [...] 10/25/21. Assessment & Plan (05/16/2022 5:23 PM TECHNICAL PUBLICATIONS WRITER): Following with nephrology. Discussed importance of well controlled blood pressure and diabetes management. Assessment & Plan (01/17/2022 9:44 AM CDT): 09/18/20 GFR=17 11/08/20 GFR=26 02/14/21 GFR=22 10/01/21 GFR=27 01/10/22 GFR=20 Following with nephrology. Assessment & Plan (10/13/2021 1:41 PM CDT): 09/18/20 GFR=17 11/08/20 GFR=26 02/14/21 GFR=22 10/01/21 GFR=27 Scheduled with nephrology 10/25/21. Assessment & Plan (04/09/2021 5:59 PM TECHNICAL PUBLICATIONS WRITER): 09/18/20 GFR=17 11/08/20 GFR=26 02/14/21 GFR=22 Updated [...] function. Assessment & Plan (05/17/2020 1:11 PM TECHNICAL PUBLICATIONS WRITER): GFR 11/07/19=35 GFR 02/09/20=35. Has been stable. [...] 11/06/2019 Assessment & Plan (05/16/2022 5:23 PM TECHNICAL PUBLICATIONS WRITER): Lab Results Component Value Date HGBA1C 9.9 [...] 04/09/2021 Assessment & Plan (07/11/2021 11:17 PM TECHNICAL PUBLICATIONS WRITER): Lab Results Component Value Date HGBA1C 10.5 07/11/2021 HGBA1C 9.7 04/09/2021 HGBA1C 11.7 01/07/2021 Patient agreeable to meet with project management analyst to discuss healthy food choices to improve blood glucose. Referral placed. Will start basal insulin 10 units nightly, reviewed medication administration, follow up in 3 months and bring copy of blood sugar log to next apt. Reviewed s/s of hypo/hypergylcemia. Assessment & Plan (04/09/2021 6:08 PM TECHNICAL PUBLICATIONS WRITER): Lab Results Component Value Date HGBA1C 9.7 [...] month Assessment & Plan (05/17/2020 1:09 PM TECHNICAL PUBLICATIONS WRITER): Lab Results Component Value Date HGBA1C 9.6 [...] evaluation. Last eye exam december 2018 at [facility]. Letter sent to get copy of results [...] 04/09/2021 Assessment & Plan (04/27/2024 1:21 PM TECHNICAL PUBLICATIONS WRITER): This is a chronic condition which is [...] lisinopril. Assessment & Plan (03/17/2024 7:35 AM TECHNICAL PUBLICATIONS WRITER): Improving. Continue following with endocrinology. Red flags reviewed. Hypertensive disorder 07/04/2019 Overview (05/19/2023): Last Assessment & Plan: Stable; continue current medication regimen. Assessment & Plan (04/06/2023 3:43 PM TECHNICAL PUBLICATIONS WRITER): This is a chronic condition which is [...] prescribed. Assessment & Plan (06/19/2022 2:09 PM TECHNICAL PUBLICATIONS WRITER): This is a chronic condition which is at goal of less than 140/90 Hypotension 94/48 Personally reviewed labs. Decrease lisinopril to 10 mg p.o. daily Encouraged to take medications as prescribed. Assessment & Plan (05/16/2022 5:23 PM TECHNICAL PUBLICATIONS WRITER): Blood pressure well controled today. No changes in current regimen. Assessment & Plan (01/17/2022 10:14 AM CDT): Condition is stable Discussed/ordered labs, encouraged healthy, low carbohydrate lifestyle and at least 150min/week of exercise, continue on lisinopril 20 mg daily. BP checked by myself 118/80 Assessment & Plan (10/13/2021 1:41 PM CDT): Stable; continue current medication regimen. Assessment & Plan (07/11/2021 11:17 PM TECHNICAL PUBLICATIONS WRITER): BP well controlled today. No changes in current medication regimen. Assessment & Plan (04/09/2021 6:10 PM TECHNICAL PUBLICATIONS WRITER): Patient encouraged to take BP medication as [...] received. Assessment & Plan (05/17/2020 1:09 PM TECHNICAL PUBLICATIONS WRITER): Does not check BP at home. The [...] (09/29/2018): Added automatically from request for surgery [id number] Fibromyalgia 01/01/2017 Assessment & Plan (03/17/2024 7:36 AM TECHNICAL PUBLICATIONS WRITER): Stable on duloxetine. No changes. Will continue to monitor. Primary osteoarthritis involving multiple joints 01/01/2017 Major depressive disorder 01/01/2017 Assessment & Plan (07/11/2021 11:04 AM TECHNICAL PUBLICATIONS WRITER): Managed by Dr. Berger at [facility], following up every 3 months. Continues seeing therapist once monthly. Discussed increasing frequency of counseling to once weekly if able. PHQ today 21. Discussed importance of regular exercise/ healthy diet and general healthy lifestyle to improve moods. Lives at home with son and two grandsons. Reports supportive family. Denies any SI/HI. Assessment & Plan (04/09/2021 10:47 AM TECHNICAL PUBLICATIONS WRITER): PHQ=19 (worsening with breast CA diagnosis) Hydroxyzine 25mg q6hr prn, risperidone 2mg nightly, trazodone 100mg nightly, duloxetine DR 60mg daily, amitriptyline 25mg nightly. Managed by Dr Berger at [facility]. Sees him q3mos. Also sees therapist Kay at [facility]. Denies suicidal/homicidal ideation. Assessment & Plan (08/16/2020 11:22 AM CDT): Hydroxyzine 25mg q6hr prn, risperidone 2mg nightly, trazodone 100mg nightly, duloxetine DR 60mg daily, amitriptyline 25mg nightly. Managed by Dr Berger at [facility]. Doing phone visits with him q3mos. Also with therapist Kay at [facility]. Reports good control of depression w/current regimen. No changes to be made at this time. Reviewed med Ses & scheduling. Reviewed red flags. Assessment & Plan (02/09/2020 9:30 AM CDT): Following w/Dr Berger at [facility] every 3 months. following w/monthly therapy appts w/Mellisa Davidson at [facility]. Verified current medications. Will fax lab results to Dr Berger at [facility] once completed. Reports good control of depression w/current regimen. No changes to be made at this time. Reviewed med Ses & scheduling. Reviewed red flags. Assessment & Plan (11/07/2019 10:00 AM CDT): Followed by Dr Berger at [facility]. Reports good control of depression w/current regimen. No changes to be made at this time. Reviewed med Ses & scheduling. Reviewed red flags. Resolved Problems Problem Noted Date Diagnosed Date Resolved Date BMI 27.0-27.9,adult 02/09/2020 08/17/19 21 Assessment & Plan (05/17/2020 1:11 PM TECHNICAL PUBLICATIONS WRITER): Discussed healthy diet and importance of regular [...] healthier, we can set up appointment with home therapy teacher/extern. 3. Have an active lifestyle, strive for [...] & Plan (11/07/2019 10:01 AM CDT): 12/22/18 CI=340 HDL=43 GH=246 LDL=88 TC/HDL=4.74 07/04/19 TC=78 HDL=32 RI=865 ZVT=960 TC/HDL=10.3 11/07/19 GW=768 DL=27 FQ=085 WZL=644 CALC TC/HDL=12.0 Copy of today's lipid panel given to mrs Mjeia. Will have tests verified/repeated at lab today. Aware that atorvastatin will need increased if lipid panel elevated. Encounters Date Type Department Care Team Description 07/06/2024 3:00 PM TECHNICAL PUBLICATIONS WRITER Lab [address] [place] [phone] Anemia of chronic renal failure, stage 4 (severe) (HCC) (Primary Dx) 07/06/2024 3:00 PM TECHNICAL PUBLICATIONS WRITER Clinical Support [address] [place] [phone] Anemia of chronic renal failure, stage 4 (severe) (HCC) (Primary Dx) 06/23/2024 2:00 PM TECHNICAL PUBLICATIONS WRITER Infusion [address] [place] [phone] Anemia of chronic renal failure, stage 4 (severe) (HCC) (Primary Dx) 06/22/2024 3:00 PM TECHNICAL PUBLICATIONS WRITER Lab [address] [phone] Anemia in stage 4 chronic kidney disease (HCC) (Primary Dx) 06/22/2024 3:00 PM TECHNICAL PUBLICATIONS WRITER Clinical Support [address] [place] [phone] Anemia of chronic renal failure, stage 4 (severe) (HCC) (Primary Dx) 06/13/2024 8:05 AM TECHNICAL PUBLICATIONS WRITER Lab [address] [phone] 06/10/[address] [phone] Ashu Arevalo MD 06/10/[address] [phone] Ashu Arevalo MD 06/08/[address] [phone] Keara Donaldson RN 06/03/[address] [phone] Jason Xavier MD 05/31/2024 12:10 PM TECHNICAL PUBLICATIONS WRITER Lab [address] [phone] Anemia of chronic renal failure, stage 4 (severe) (HCC) 05/10/2024 Telephone [facility] Accountable Care Organization [address] [place] [phone] Charley Irby Chart Review ([facility] A1C) from Last 3 Months Immunizations Immunization Administration Dates Next Due COVID-19 mRNA (PFIZER) 0.3 m L (30 mcg) vaccine (12 years and up) 02/01/2023 Influenza, Quad, Adjuvantate d, Intramuscular 02/01/2023 Influenza, Quadrivalent, Muriel l Culture-based MDCK, Preservative Free, Antibiotic Free, Intramuscular 03/02/2017 Influenza, Quadrivalent, Spl it, Preservative Free, Intramuscular 01/17/2022,04/09/2021,02/09/2020,02/17,02/23/2018,02/12/2016,01/31/2015 Influenza, Trivalent, Cell Culture-based MDCK, Preservative Free, Antibiotic Free, Intramuscular 03/02/2017 Influenza, Trivalent, High D ose, Split, Preservative Free, Intramuscular 03/17/2024 Influenza, Trivalent, IM (MDV) 02/12/2014 Influenza, Unspecified 02/01/2023,2018,02/17/2019,02/08,02/08/2017 David (J&J) SARS-CoV-2 Vaccination 09/19/2020, 09/17/2020,09/17/2020 Pneumococcal Conjugate PCV 13 02/12/2016, 013 Pneumococcal Conjugate Pcv20 09/12/2022 Pneumococcal Polysaccharide PPV23 12/20/2012 Tdap 07/11/2021 ZOSTER Recombinant 07/13/2020,05/01/2020, 020 Surgical History Surgery Date Site/Laterality Comments OTHER SURGICAL HISTORY 05/11/2006 - 05/10/2007 left hand VAGINAL HYSTERECTOMY 05/11/2005 - 05/10/2006 Hysterectomy, vaginal SECTION section OTHER SURGICAL HISTORY Fibromyaliga SECTION HYSTERECTOMY 05/11/2005 - 05/10/2006 OOPHORECTOMY 05/11/2005 - 05/10/2006 US GUIDED BIOPSY LYMPH NODE SUPERFICIAL LEFT 05/09/2020 N/A BREAST BIOPSY 05/09/2020 Left IDC with axillary involvement COLONOSCOPY ROTATOR CUFF REPAIR Bilateral KNEE ARTHROSCOPY Right LIPOMA RESECTION 10/09/1997 - 11/07/1997 back Medical History Medical History Date Comments Anxiety disorder Anxiety Depression Depression Hx Other Medical fibromyalgia Hx Other Medical cirrhosis Breast cancer (HCC) 04/29/2020 invasive martin iveth carcinoma w/ mets to lymph node Hypertension Type 2 diabetes mellitus (HCC) S/P excision of lipoma Osteoarthritis Hyperlipidemia GERD (gastroesophageal reflux disease) Family History Medical History Relation Name Comments Diabetes Brother Lung cancer Father Cancer -lung; C ause of : Cancer -lung/Cancer, lung; Other Mother walking pneumon ia; Cause of : walking pneumonia Other Other Family history of RA - father, aunt, grandmother; Cervical cancer Sister Relation Name Status Comments Brother Alive Father (Age 64) Mother (Age 30) Other Sister Alive Son Alive Social History Tobacco Use Types Packs/Day Years Used Date Smoking Tobacco: Former Cigarettes 1.5 41 1 967 - 2007 Smokeless Tobacco: Never Tobacco Cessation:Counseling Given: Not Answered Alcohol Use Standard Drinks/Week Comments No 0 (1 standard drink = 0.6 oz pur e alcohol) Social Connection and Isolat ion Panel [NHANES] Answer Date Recorded In a typical week, how many times do you talk on the phone with family, friends, or neighbors? More than three times a week 06/26/2022 How often do you get togethe r with friends or relatives? Once a week 06/26/2022 How often do you attend [facility] or yazidism services? More than 4 times per year 06/26/2022 Do you belong to any clubs o r organizations such as yazdanism groups, unions, fraternal or athletic groups, or school groups? Yes 06/26/2022 How often do you attend meet ings of the clubs or organizations you belong to? Never 06/26/2022 Are you , , di vorced, , never , or living with a partner? 06/26/2022 AUDIT-C Answer Date Recorded Q1: How often do you have a drink containing alc ohol? Never 12/01/2022 Average Number of Drinks Not on file 023 Frequency of Binge Drinking Not on file 11/09 Overall Financial Resource Strain (CARDIA) Answe r Date Recorded How hard is it for you to pa y for the very basics like food, housing, medical care, and heating? Hard 06/26/2022 PHQ-2 Answer Date Recorded PHQ-2 Total Score (If total score is 3 or more points, staff should administer the PHQ-9) 2 03/17/2024 Exercise Vital Sign Answer Date Recorde d On average, how many days pe r week do you engage in moderate to strenuous exercise (like a brisk walk)? 3 days 05/26/2022 On average, how many minutes do you engage in exercise at this level? 30 min 05/26/2022 Hunger Vital Sign Answer Date Recorded Within the past 12 months, y ou worried that your food would run out before you got the money to buy more. Never true 05/21/19 23 Within the past 12 months, t he food you bought just didn't last and you didn't have money to get more. Never true 05/21/2022 PRAPARE - Transportation Answer Date Re corded In the past 12 months, has l ack of transportation kept you from medical appointments or from getting medications? No 06/11 In the past 12 months, has l ack of transportation kept you from meetings, work, or from getting things needed for daily living? No 06/26/2022 Housing Stability Vital Sign Answer Sandip e Recorded In the last 12 months, was t here a time when you were not able to pay the mortgage or rent on time? No 06/26/2022 In the last 12 months, how many places have you lived? 1 06/26/2022 In the last 12 months, was t here a time when you did not have a steady place to sleep or slept in a fpc (including now)? No 06/26/2022 Personal Safety Answer Date Recorded Getting School Help Needed Denies 04/27 Education Answer Date Recorded What is the highest level of school you have completed or the highest degree you have received? GED or equivalent 03/2023 Comments No Sex and Gender Information Value Date Recorded Sex Assigned at Not on file Legal Sex Female 12:56 PM TECHNICAL PUBLICATIONS WRITER Gender Identity Not on file Sexual Orientation Not on file Obstetrics History Para Term AB IAB SAB Ectopic Multiple Livin g Live Births 6 3 3 Date Outcome GA Total Labor Labor/2nd/3rd Weight Sex Type Anes PTL Che A1 A5 Name Clin Term Term Term Last Filed Vital Signs Vital Sign Reading Time Taken Comments Blood Pressure 106/55 06/23/2024 3:58 PM TECHNICAL PUBLICATIONS WRITER Pulse 67 06/23/2024 3:58 PM TECHNICAL PUBLICATIONS WRITER Temperature 36.6 C (97.9 F) 06/23/2024 3:58 PM TECHNICAL PUBLICATIONS WRITER Respiratory Rate 20 06/23/2024 3:58 PM TECHNICAL PUBLICATIONS WRITER Oxygen Saturation 95% 06/23/2024 3:58 PM TECHNICAL PUBLICATIONS WRITER Inhaled Oxygen Concentration - - Weight 65.3 kg (143 lb 14.4 oz) 06/22/2024 3:08 PM TECHNICAL PUBLICATIONS WRITER Height 167.6 cm (5' 6 ) 04/27/2024 1:01 PM TECHNICAL PUBLICATIONS WRITER Body Mass Index 23.23 04/27/2024 1:01 PM TECHNICAL PUBLICATIONS WRITER Plan of Treatment Upcoming Encounters Date Type Department Care Team (Late st Contact Info) Description 08/24/2024 7:30 AM CDT Hospital Encounter [address] [address] Nathan Brooks DO 4 [facility] [address] [place] [address] 08/24/2024 7:30 AM CDT - 08/24/2024 8:00 AM CDT Surgery [address] [address] Nathan Brooks, 4 [facility] [address] [place] [address] COLONOSCOPY Scheduled Procedures Name Priority Associated Diagnoses Date/Ti me COLONOSCOPY History of colonic polyps Encounter for screening colonoscopy 08/24/2024 7:30 AM CDT Health Maintenance Due Date Last Done Comments Hepatitis B Screening 12/20/1973 Breast Cancer Screening-Mammogram 03/28/2023 03/28/2022, 03/22/2021, 02/16/2020, Additional history exists Dilated Eye Exam 05/20/2023 05/20/2022, 02/2023, 02/03/2022, Additional history exists Colon Cancer Screening-Colonoscopy 10/19/2023 10/18/2018 Covid-19 Vaccine (7 2023- 5 season) 2024 02/01/2023, 02/06/2022, 04/30/2021, Additional history exists Hemoglobin A1C 10/26/2024 04/27/2024, 12/09, 04/06/2023, Additional history exists Lipid Panel 12/22/2024 12/23/2023, 0612/2022, 05/21/2022, Additional history exists Albumin Creatinine Ratio, Urine 02/22/2025 02/23/2024, 12/23/2023, 03/11/2022, Additional history exists Depression Screening 03/17/2025 03/17/2024, 10/16/2022, 10/16/2022, Additional history exists Fall Risk Assessment 03/17/2025 03/17/2024, 10/16/2022, 05/24/2022, Additional history exists Well Visit 65+ 03/17/2025 03/17/2024, 01/2022, 11/07/2019, Additional history exists Osteoporosis Screening-Bone Density Scan 04/03/2025 04/03/2023, 08/20/2020 Foot Exam 04/27/2025 04/27/2024, 08/2023, 04/06/2023, Additional history exists eGFR 06/13/2025 06/13/2024, 02/08, 12/23/2023, Additional history exists DTaP/Tdap/Td Vaccine (2 - Td or Tdap) 07/12/2031 07/11/2021 Hepatitis C Screening Completed 01/29/2015 Colon Cancer Screening-CT Colonography Discontinued 10/18/2018 Colon Cancer Screening-DNA Stool Discontinued 10/19/19 19 Colon Cancer Screening-FIT Discontinued 10/18/2018 Colon Cancer Screening-Sigmoidoscopy Discontinued 10/18/2018 Zoster Vaccine Completed 07/13/2020, 04/11, 05/01/2020 Pneumococcal vaccine 65+ Completed 023, 02/12/2016, 12/20/2012, Additional history exists Influenza Vaccine Completed 03/17/2024, , 02/01/2023, Additional history exists Medical Devices Implanted Type Area [employer] Testing Device Identifier Shelf Expiration Date Model / Serial / Lot Bard Peripheral Vascular [id number] Ultraclip Bard 17ga 12cm 2 Trigger Permanent Ultrasound - [id number] - [id number] Implanted:Qty: 1 on 05/09/2020 by Oc Amin MD at [facility] Breast Left: Breast Bard Peripheral Vascular 11/05/2022 [id number] / [id number] / Bard Peripheral Vascular [id number] Ultraclip Bard 17ga 10cm 2 Trigger Permanent Ultrasound - [id number] - [id number] Implanted:Qty: 1 on 05/09/2020 by Oc Amin MD at [facility] Breast Left: Breast Bard Peripheral Vascular 12/05/2022 [id number] / [id number] / Procedures Procedure Name Priority Date/Time Associated Diagnosis Comments DIFFERENTIAL AUTO Routine 07/06/2024 3:0 0 PM TECHNICAL PUBLICATIONS WRITER Anemia of chronic renal failure, stage 4 (severe) (HCC) CBC WITH AUTO DIFFERENTIAL Routine 07/06/2024 3:00 PM TECHNICAL PUBLICATIONS WRITER Anemia of chronic renal failure, stage 4 (severe) (HCC) TRANSFUSE RED BLOOD CELLS Timed 06/23/2024 1:55 PM TECHNICAL PUBLICATIONS WRITER Anemia of chronic renal failure, stage 4 (severe) (HCC) PREPARE RBC Routine 06/22/2024 4:51 PM TECHNICAL PUBLICATIONS WRITER Anemia of chronic renal failure, stage 4 (severe) (HCC) CROSSMATCH Routine 06/22/2024 3:25 PM TECHNICAL PUBLICATIONS WRITER Anemia of chronic renal failure, stage 4 (severe) (HCC) ANTIBODY SCREEN Routine 06/22/2024 3:25 PM TECHNICAL PUBLICATIONS WRITER Anemia of chronic renal failure, stage 4 (severe) (HCC) ABO/RH Routine 06/22/2024 3:25 PM TECHNICAL PUBLICATIONS WRITER Anemia of chronic renal failure, stage 4 (severe) (HCC) TYPE AND SCREEN Routine 06/22/2024 3:25 PM TECHNICAL PUBLICATIONS WRITER Anemia of chronic renal failure, stage 4 (severe) (HCC) B ABO / RH CONFIRMATION TESTING STAT 06/22/2024 3:10 PM TECHNICAL PUBLICATIONS WRITER DIFFERENTIAL AUTO Routine 06/22/2024 3:1 0 PM TECHNICAL PUBLICATIONS WRITER Anemia of chronic renal failure, stage 4 (severe) (HCC) CBC WITH AUTO DIFFERENTIAL Routine 06/22/2024 3:10 PM TECHNICAL PUBLICATIONS WRITER Anemia of chronic renal failure, stage 4 (severe) (HCC) EGFR Routine 06/13/2024 8:09 AM TECHNICAL PUBLICATIONS WRITER DIFFERENTIAL AUTO Routine 06/13/2024 8:0 9 AM TECHNICAL PUBLICATIONS WRITER IRON PROFILE W/ IBC Routine 06/13/2024 8 :09 AM TECHNICAL PUBLICATIONS WRITER CALCITRIOL 1,25-DIHYDROXYVITAM IN D Routine 06/13/2024 8:09 AM TECHNICAL PUBLICATIONS WRITER PTH Routine 06/13/2024 8:09 AM TECHNICAL PUBLICATIONS WRITER RENAL FUNCTION PANEL Routine 06/13/2024 8:09 AM TECHNICAL PUBLICATIONS WRITER CBC WITH AUTO DIFFERENTIAL Routine 06/13/2024 8:09 AM TECHNICAL PUBLICATIONS WRITER DIFFERENTIAL AUTO Routine 05/31/2024 12: 22 PM TECHNICAL PUBLICATIONS WRITER Anemia of chronic renal failure, stage 4 (severe) (HCC) CBC WITH AUTO DIFFERENTIAL Routine 05/31/2024 12:22 PM TECHNICAL PUBLICATIONS WRITER Anemia of chronic renal failure, stage 4 (severe) (HCC) POCT HEMOGLOBIN A1C Routine 04/27/2024 1 :05 PM TECHNICAL PUBLICATIONS WRITER Type 2 diabetes mellitus with hypoglycemia without coma, with long-term current use of insulin (HCC) ALBUMIN CREATININE RATIO, URINE Routine 02/23/2024 12:10 PM CDT LIPID PANEL Routine 12/23/2023 6:39 AM CDT Dyslipidemia associated with type 2 diabetes mellitus (HCC) DEXA AXIAL SKELETON BONE DENSITY 1 OR MORE SITES Schedule Routine, Read Routine (OP Routine) 04/03/2023 12:42 PM TECHNICAL PUBLICATIONS WRITER At high risk for osteoporosis Age-related osteoporosis without current pathological fracture HM DIABETES EYE EXAM Routine 05/20/2022 3:39 PM TECHNICAL PUBLICATIONS WRITER SCREENING MAMMOGRAM RIGHT W W[place] UNILATERAL ONLY Schedule Routine, Read Routine (OP Routine) 03/28/2022 2:03 PM TECHNICAL PUBLICATIONS WRITER Personal history of breast cancer Encounter for screening mammogram for malignant neoplasm of breast COLONOSCOPY 10/18/2018 10:00 AM CDT SERUM HEPATITIS C AB Routine 01/29/2015 11:36 AM CDT from Last 3 Months or Most Recently Relevant to Health Maintenance Results * (ABNORMAL) Differential, auto (07/06/2024 3:00 PM TECHNICAL PUBLICATIONS WRITER) Neutrophil abs 7.7(H) 1.5 - 6.5 K/cumm Comment:Testing performed by : [facility] [address], Medical Office [facility] [address], [place] [address] Imm gran abs 0.0 0.0 - 0.1 K/cumm [facility] ([place]) Comment:Testing performed by : [facility] [address], Medical Office [facility] [address], [place] [address] Lymphocyte abs 0.8 0.8 - 3.3 K/cumm [facility] ([place]) Comment:Testing performed by : [facility] [address], Medical Office [facility] [address], [place] [address] Monocyte abs 0.6 0.2 - 0.8 K/cumm [facility] ([place]) Comment:Testing performed by : [facility] [address], Medical Office [facility] [address], [place] [address] Eosinophil abs 0.0 0.0 - 0.5 K/cumm [facility] ([place]) Comment:Testing performed by : [facility] [address], Medical Office [facility] [address], [place] [address] Basophil abs 0.0 0.0 - 0.1 K/cumm [facility] ([place]) Comment:Testing performed by : [facility] [address], Medical Office [facility] [address], [place] [address] Neutrophil pct 83.9 % [facility] ([place]) Comment: Interpretive Data Percent cell count reference ranges are not reported, since discordance with absolute values may lead to misinterpretation of CBC data. Current Interpretive Data was last revised on 2022. Testing performed by: [facility] [address], Medical Office [facility] [address], [place] [address] Imm gran pct 0.3 % [facility] ([place]) Comment: Interpretive Data Percent cell count reference ranges are not reported, since discordance with absolute values may lead to misinterpretation of CBC data. Current Interpretive Data was last revised on 2022. Testing performed by: [facility] [address], Medical Office [facility] [address], [place] [address] Lymphocyte pct 8.3 % [facility] ([place]) Comment: Interpretive Data Percent cell count reference ranges are not reported, since discordance with absolute values may lead to misinterpretation of CBC data. Current Interpretive Data was last revised on 2022. Testing performed by: [facility] [address], Medical Office [facility] [address], [place] [address] Monocyte pct 6.7 % [facility] ([place]) Comment: Interpretive Data Percent cell count reference ranges are not reported, since discordance with absolute values may lead to misinterpretation of CBC data. Current Interpretive Data was last revised on 2022. Testing performed by: [facility] [address], Medical Office [facility] [address], [place] [address] Eosinophil pct 0.4 % [facility] ([place]) Comment: Interpretive Data Percent cell count reference ranges are not reported, since discordance with absolute values may lead to misinterpretation of CBC data. Current Interpretive Data was last revised on 2022. Testing performed by: [facility] [address], Medical Office [facility] [address], [place] [address] Basophil pct 0.4 % [facility] ([place]) Comment: Interpretive Data Percent cell count reference ranges are not reported, since discordance with absolute values may lead to misinterpretation of CBC data. Current Interpretive Data was last revised on 2022. Testing performed by: [facility] [address], Medical Office [facility] [address], [place] [address] Blood 07/06/2024 3:00 PM TECHNICAL PUBLICATIONS WRITER 07/06/2024 3:00 PM TECHNICAL PUBLICATIONS WRITER us Ashu Arevalo MD LAB BLOOD ORDERABLES Fin al Result OSMIN ESTRADA ([place]) [facility] [place] [address] * (ABNORMAL) CBC with auto differential (07/06/2024 3:00 PM TECHNICAL PUBLICATIONS WRITER) WBC 9.2 3.8 - 9.9 K/cumm Comment:Testing performed by : [facility] [address], Medical Office [facility] [address], [place] [address] Hgb 8.5(L) 11.9 - 15.5 g/dL [facility] ([place]) Comment:Testing performed by : [facility] [address], Medical Office [facility] [address], [place] [address] Hct 27.3(L) 35.6 - 45.5 % [facility] ([place]) Comment:Testing performed by : [facility] [address], Medical Office [facility] B [facility] [address], [place] [address] Plt 273 150 - 400 K/cumm [facility] ([place]) Comment:Testing performed by : [facility] [address], Medical Office [facility] B [facility] [address], [place] [address] MPV 9.1 9.1 - 12.3 fL [facility] ([place]) Comment:Testing performed by : [facility] [address], Medical Office [facility] B [facility] [address], [place] [address] RBC 3.30(L) 3.90 - 5.20 M/cumm [facility] ([place]) Comment:Testing performed by : [facility] [address], Medical Office [facility] [address], [place] [address] MCV 82.7 81.3 - 96.4 fL [facility] ([place]) Comment:Testing performed by : [facility] [address], Medical Office [facility] [address], [place] [address] MCH 25.8(L) 27.1 - 33.3 pg [facility] ([place]) Comment:Testing performed by : [facility] [address], Medical Office [facility] [address], [place] [address] MCHC 31.1(L) 32.3 - 35.7 g/dL [facility] ESTRADA ([place]) Comment:Testing performed by : [facility] [address], Medical Office [address], [place] [address] RDW CV 17.4(H) 11.1 - 14.9 % OSMIN ESTRADA (ERASMO) Comment:Testing performed by : [facility] [address], Medical Office [address], [place] [address] RDW SD 53.4(H) 35.7 - 48.1 fL [facility] ESTRADA (ERAS[place]) Comment:Testing performed by : [facility] [address], Medical Office [facility] [address], [place] [address] NRBC abs Not Measured 0.00 - 0.01 K/cumm [facility] ESTRADA (ERAS[place]) Comment:Testing performed by : [facility] [address], Medical Office [facility] [address], [place] [address] Blood 07/06/2024 3:00 PM TECHNICAL PUBLICATIONS WRITER 07/06/2024 3:00 PM TECHNICAL PUBLICATIONS WRITER Ashu Arevalo MD LAB BLOOD ORDERABLES Fin al Result [facility] ([place]) [address] [place] [address] Department [place] [address] * Transfuse RBC (06/23/2024 4:02 PM TECHNICAL PUBLICATIONS WRITER) Blood us Ashu Arevalo MD BLOOD TRANSFUSION ORDERA BLES Final Result * Prepare RBC: 1 Units (06/22/2024 4:51 PM TECHNICAL PUBLICATIONS WRITER) Units requested 1 Comment:Testing performed by : [facility], [place], [address] Units requested Ready [facility] ESTRADA (ERASMO) Comment:Testing performed by : [place], [address] Unit Number [id number] Product code [id number] [facility] ([place]) Blood Expiration Date [id number] [facility] ([place]) Product Blood Type (for scanning) 9500 [facility] ([place]) Product Blood Type ONEG [facility] ([place]) Dispense Status DISPENSED [facility] ([place]) Blood 06/22/2024 4:51 PM TECHNICAL PUBLICATIONS WRITER 06/22/2024 4:51 PM TECHNICAL PUBLICATIONS WRITER us Ashu Arevalo MD BLOOD BANK PRODUCT ORDER LUBA Final Result [facility] ESTRADA ([place]) [address] [place] [address] * ABO/Rh (06/22/2024 3:25 PM TECHNICAL PUBLICATIONS WRITER) ABO/Rh O Negative Comment:Testing performed by : [facility], [place], [address] Blood 06/22/2024 3:25 PM TECHNICAL PUBLICATIONS WRITER 06/22/2024 3:58 PM TECHNICAL PUBLICATIONS WRITER us Ashu Arevalo MD LAB BLOOD BANK TEST ORDE RABLES Final Result Performing Organization Address [facility]/ZIP Co de Phone Number O[facility] ESTRADA ([place]) [address] [place] [address] [place] [address] * Crossmatch (06/22/2024 3:25 PM TECHNICAL PUBLICATIONS WRITER) Crossmatch Compatible O[facility] Devine ([place]) Unit number for crossmatch [id number] [facility] ([place]) Blood 06/22/2024 3:25 PM TECHNICAL PUBLICATIONS WRITER 06/22/2024 3:58 PM TECHNICAL PUBLICATIONS WRITER us Ashu Arevalo MD LAB BLOOD BANK TEST ORDE RABLES Final Result [facility] ESTRADA ([place]) [address] [facility] [place] [address] * Antibody screen (06/22/2024 3:25 PM TECHNICAL PUBLICATIONS WRITER) Charles, indirect, Gel Interpretation Negative ABSC Comment:Testing performed by : [facility], [facility], [place], [address] Blood 06/22/2024 3:25 PM TECHNICAL PUBLICATIONS WRITER 06/22/2024 3:58 PM TECHNICAL PUBLICATIONS WRITER us Ashu Arevalo MD LAB BLOOD BANK TEST BRANDI SHELLEY Final Result [facility] ([place]) [facility] Department [place] [address] * Differential, auto (06/22/2024 3:10 PM TECHNICAL PUBLICATIONS WRITER) Pathologist [facility] Neutrophil abs 4.3 1.5 - 6.5 K/cumm Comment:Testing performed by : [facility] [address], Medical Office [facility] [address], [place] [address] Imm gran abs 0.0 0.0 - 0.1 K/cumm [facility] ([place]) Comment:Testing performed by : [facility] [address], Medical Office [facility] [address], [place] [address] Lymphocyte abs 1.2 0.8 - 3.3 K/cumm [facility] ([place]) Comment:Testing performed by : [facility] [address], Medical Office [facility] [address], [place] [address] Monocyte abs 0.6 0.2 - 0.8 K/cumm [facility] ([place]) Comment:Testing performed by : [facility] [address], Medical Office [facility] [address], [place] [address] Eosinophil abs 0.0 0.0 - 0.5 K/cumm [facility] ([place]) Comment:Testing performed by : [facility] [address], Medical Office [facility] [address], [place] [address] Basophil abs 0.0 0.0 - 0.1 K/cumm [facility] ([place]) Comment:Testing performed by : [facility] [address], Medical Office [facility] [address], [place] [address] Neutrophil pct 69.5 % [facility] ([place]) Comment: Interpretive Data Percent cell count reference ranges are not reported, since discordance with absolute values may lead to misinterpretation of CBC data. Current Interpretive Data was last revised on 2022. Testing performed by: [facility] [address], Medical Office [facility] [address], [place] [address] Imm gran pct 0.2 % [facility] ([place]) Comment: Interpretive Data Percent cell count reference ranges are not reported, since discordance with absolute values may lead to misinterpretation of CBC data. Current Interpretive Data was last revised on 2022. Testing performed by: [facility] [address], Medical Office [facility] [address], [place] [address] Lymphocyte pct 19.9 % [facility] ([place]) Comment: Interpretive Data Percent cell count reference ranges are not reported, since discordance with absolute values may lead to misinterpretation of CBC data. Current Interpretive Data was last revised on 2022. Testing performed by: [facility] [address], Medical Office dg [address], [place] [address] Monocyte pct 9.8 % [facility] ([place]) Comment: Interpretive Data Percent cell count reference ranges are not reported, since discordance with absolute values may lead to misinterpretation of CBC data. Current Interpretive Data was last revised on 2022. Testing performed by: [facility] [address], Medical Office [facility] [address], [place] [address] Eosinophil pct 0.3 % [facility] ([place]) Comment: Interpretive Data Percent cell count reference ranges are not reported, since discordance with absolute values may lead to misinterpretation of CBC data. Current Interpretive Data was last revised on 2022. Testing performed by: [facility] [address], Medical Office dg [address], [place] [address] Basophil pct 0.3 % [facility] ([place]) Comment: Interpretive Data Percent cell count reference ranges are not reported, since discordance with absolute values may lead to misinterpretation of CBC data. Current Interpretive Data was last revised on 2022. Testing performed by: [facility] [address], Medical Office [facility] [address], [place] [address] Blood 06/22/2024 3:10 PM TECHNICAL PUBLICATIONS WRITER 06/22/2024 3:14 PM TECHNICAL PUBLICATIONS WRITER Ashu Arevalo MD LAB BLOOD ORDERABLES Fin al Result Performing Organization Address City/[facility]/ZIP Co de Phone Number [facility] ([place]) [facility] Department [place] [address] * ABO / Rh Confirmation Testing (06/22/2024 3:10 PM TECHNICAL PUBLICATIONS WRITER) ABO/Rh Confirmation O Negative [facility] Comment:Testing performed by : [facility], [facility], [place], [address] Blood 06/22/2024 3:10 PM TECHNICAL PUBLICATIONS WRITER 06/22/2024 4:00 PM TECHNICAL PUBLICATIONS WRITER Ashu Arevalo MD LAB BLOOD ORDERABLES Fin al Result Performing Organization Address [facility]/ZIP Co de Phone Number [facility] ([place]) [address] [facility] Department [place] [address] AMH * (ABNORMAL) CBC with auto differential (06/22/2024 3:10 PM TECHNICAL PUBLICATIONS WRITER) WBC 6.1 3.8 - 9.9 K/cumm Comment:Testing performed by : [facility] [address], Medical Office [facility] [address], [place] [address] Hgb 6.9(L) 11.9 - 15.5 g/dL [facility] ([place]) Comment:Testing performed by : [facility] [address], Medical Office [facility] [address], [place] [address] Hct 21.7(L) 35.6 - 45.5 % [facility] ([place]) Comment:Testing performed by : [facility] [address], Medical Office [facility] [address], [place] [address] Plt 227 150 - 400 K/cumm [facility] ([place]) Comment:Testing performed by : [facility] [address], Medical Office [facility] B [facility] [address], [place] [address] MPV 9.1 9.1 - 12.3 fL [facility] ([place]) Comment:Testing performed by : [facility] [address], Medical Office [facility] B [facility] [address], [place] [address] RBC 2.74(L) 3.90 - 5.20 M/cumm [facility] ([place]) Comment:Testing performed by : [facility] [address], Medical Office [facility] B [facility] [address], [place] [address] MCV 79.2(L) 81.3 - 96.4 fL [facility] ([place]) Comment:Testing performed by : [facility] [address], Medical Office [facility] B [facility] [address], [place] [address] MCH 25.2(L) 27.1 - 33.3 pg [facility] ([place]) Comment:Testing performed by : [facility] [address], Medical Office [facility] B [facility] [address], [place] [address] MCHC 31.8(L) 32.3 - 35.7 g/dL [facility] ([place]) Comment:Testing performed by : [facility] [address], Medical Office [facility] B [facility] [address], [place] [address] RDW CV 18.6(H) 11.1 - 14.9 % [facility] ([place]) Comment:Testing performed by : [facility] [address], Medical Office [facility] B [facility] [address], [place] [address] RDW SD 54.3(H) 35.7 - 48.1 fL [facility] ([place]) Comment:Testing performed by : [facility] [address], Medical Office [facility] B [facility] [address], [place] [address] NRBC abs Not Measured 0.00 - 0.01 K/cumm [facility] ([place]) Comment:Testing performed by : [facility] [address], Medical Office [facility] B [facility] [address], [place] [address] Blood 06/22/2024 3:10 PM TECHNICAL PUBLICATIONS WRITER 06/22/2024 3:14 PM TECHNICAL PUBLICATIONS WRITER Ashu Arevalo MD LAB BLOOD ORDERABLES Fin al Result Performing Organization Address City/[facility]/ZIP Co de Phone Number OSMIN ESTRADA ([place]) 1 [facility] [place] [employer] [address] * (ABNORMAL) Calcitriol 1,25 Dihydroxyvitamin D (06/13/2024 8:09 AM TECHNICAL PUBLICATIONS WRITER) Vit D3 1, 25 9 NO REFERENCE RANGE pg/mL [place] ref Lab Vit D2 1, 25 <8 NO REFERENCE RANGE pg/mL [facility] ([place]) Comment: This test was developed and its analytical performance characteristics have been determined by [employer]. It has not been cleared or approved by FDA. This assay has been validated pursuant to the CLIA regulations and is used for clinical purposes. For additional information, please refer to http://education.Pro V&V/faq/QDL936 (This link is being provided for informational/educational purposes only.) Test Performed by: [employer]/[address] [id number] Vit D 1, 25 total 9(L) 18 - 72 pg/mL [facility] ([place]) Comment: Reference Ranges for Vitamin D, 1,25 (OH)2, Total pg/mL < 1 Year Not established 1-9 Years 31-87 10-13 Years 30-83 14-17 Years 19-83 > or = 18 Years 18-72 Vitamin D3, 1,25(OH)2 indicates both endogenous production and supplementation. Vitamin D2, 1,25(OH)2 is an indicator of exogenous sources, such as diet or supplementation. Interpretation and therapy are based on measurement of Vitamin D, 1,25 (OH)2, Total. Blood 06/13/2024 8:09 AM TECHNICAL PUBLICATIONS WRITER 06/13/2024 8:32 AM TECHNICAL PUBLICATIONS WRITER Ashu Arevalo MD LAB BLOOD ORDERABLES Fin al Result [facility] ([place]) 1 [facility] [place] [address] [place] ref Lab * (ABNORMAL) eGFR (06/13/2024 8:09 AM TECHNICAL PUBLICATIONS WRITER) eGFR 16(L) >=60 mL/min/1. 73 m2 Comment: Interpretive Data Reference Interval Normal >/= 90 mL/min/1.73m2 Mildly decreased* 60 - 89 mL/min/1.73m2 Mildly to moderately decreased 45 - 59 mL/min/1.73m2 Moderately to severely decreased 30 - 44 mL/min/1.73m2 Severely decreased 15 - 29 mL/min/1.73m2 Kidney Failure < 15 mL/min/1.73m2 *Relative to young adult level Estimated glomerular filtration rate is determined by the 2020 CKD-EPI equation recommended by the National Kidney Foundation (A Unifying Approach to GFR Estimation: Recommendations of the NKF-ASK Task Force on Reassessing the Inclusion of Race in Diagnosing Kidney Disease, JASN 2020). The CKD-EPI equation should not be used for patients with unstable renal function and has not been validated in children and those over 70. Current interpretive data was last reviewed 2021. Blood 06/13/2024 8:09 AM TECHNICAL PUBLICATIONS WRITER 06/13/2024 8:32 AM TECHNICAL PUBLICATIONS WRITER us Ashu Arevalo MD LAB BLOOD ORDERABLES Fin al Result [facility] ([place] 1 [facility] Department [place] [address] * Differential, auto (06/13/2024 8:09 AM TECHNICAL PUBLICATIONS WRITER) Neutrophil abs 4.1 1.5 - 6.5 K/cumm Imm gran abs 0.0 0.0 - 0.1 K/cumm [facility] ([place]) Lymphocyte abs 1.4 0.8 - 3.3 K/cumm [facility] ([place]) Monocyte abs 0.6 0.2 - 0.8 K/cumm [facility] ([place]) Eosinophil abs 0.1 0.0 - 0.5 K/cumm [facility] ([place]) Basophil abs 0.0 0.0 - 0.1 K/cumm [facility] ([place]) Neutrophil pct 66.4 % [facility] ([place]) Comment: Interpretive Data Percent cell count reference ranges are not reported, since discordance with absolute values may lead to misinterpretation of CBC data. Current Interpretive Data was last revised on 2017. Imm gran pct 0.2 % [facility] ([place]) Comment: Interpretive Data Percent cell count reference ranges are not reported, since discordance with absolute values may lead to misinterpretation of CBC data. Current Interpretive Data was last revised on 2017. Lymphocyte pct 21.8 % [facility] ([place]) Comment: Interpretive Data Percent cell count reference ranges are not reported, since discordance with absolute values may lead to misinterpretation of CBC data. Current Interpretive Data was last revised on 2017. Monocyte pct 9.3 % [facility] ([place]) Comment: Interpretive Data Percent cell count reference ranges are not reported, since discordance with absolute values may lead to misinterpretation of CBC data. Current Interpretive Data was last revised on 2017. Eosinophil pct 1.8 % [facility] ([place]) Comment: Interpretive Data Percent cell count reference ranges are not reported, since discordance with absolute values may lead to misinterpretation of CBC data. Current Interpretive Data was last revised on 2017. Basophil pct 0.5 % [facility] ([place]) Comment: Interpretive Data Percent cell count reference ranges are not reported, since discordance with absolute values may lead to misinterpretation of CBC data. Current Interpretive Data was last revised on 2017. Blood 06/13/2024 8:09 AM TECHNICAL PUBLICATIONS WRITER 06/13/2024 8:32 AM TECHNICAL PUBLICATIONS WRITER us Ashu Arevalo MD LAB BLOOD ORDERABLES Fin al Result [facility] ([place]) 1 [facility] Department of Laboratories [place], [place] [id number] * (ABNORMAL) Iron profile w/ IBC (06/13/2024 8:09 AM TECHNICAL PUBLICATIONS WRITER) Iron 34(L) 35 - 145 mcg/dL TIBC 333 250 - 400 mcg/dL [facility] ([place]) Transferrin saturation 10(L) 20 - 50 % [facility] ([place]) Blood 06/13/2024 8:09 AM TECHNICAL PUBLICATIONS WRITER 06/13/2024 8:32 AM TECHNICAL PUBLICATIONS WRITER us Ashu Arevalo MD LAB BLOOD ORDERABLES Fin al Result [facility] ([place]) 1 [facility] [employer] [place] [employer] [place] [address] * (ABNORMAL) CBC with auto differential (06/13/2024 8:09 AM TECHNICAL PUBLICATIONS WRITER) WBC 6.2 3.8 - 9.9 K/cumm Hgb 7.2(L) 11.9 - 15.5 g/dL [facility] ([place]) Hct 23.3(L) 35.6 - 45.5 % [facility] ([place]) Plt 319 150 - 400 K/cumm [facility] ([place]) MPV 9.2 9.1 - 12.3 fL [facility]) RBC 2.84(L) 3.90 - 5.20 M/cumm [facility] ([place]) MCV 82.0 81.3 - 96.4 fL [facility]) MCH 25.4(L) 27.1 - 33.3 pg [facility] ([place]) MCHC 30.9(L) 32.3 - 35.7 g/dL [facility] ([place]) RDW CV 17.4(H) 11.1 - 14.9 % [facility]) RDW SD 52.2(H) 35.7 - 48.1 fL [facility]) NRBC abs 0.00 0.00 - 0.01 K/cumm [facility] ([place]) Blood 06/13/2024 8:09 AM TECHNICAL PUBLICATIONS WRITER 06/13/2024 8:32 AM TECHNICAL PUBLICATIONS WRITER us Ashu Arevalo MD LAB BLOOD ORDERABLES Fin al Result Performing Organization Address City/[facility]/ZIP Co de Phone Number [facility] ([place]) [facility] Department [place] [address] * (ABNORMAL) PTH (06/13/2024 8:09 AM TECHNICAL PUBLICATIONS WRITER) PTH 145(H) 15 - 65 pg/mL Blood 06/13/2024 8:09 AM TECHNICAL PUBLICATIONS WRITER 06/13/2024 8:32 AM TECHNICAL PUBLICATIONS WRITER us Ashu Arevalo MD LAB BLOOD ORDERABLES Fin al Result [facility] ([place]) 1 [facility] Department [place] [address] * (ABNORMAL) Renal function panel (06/13/2024 8:09 AM TECHNICAL PUBLICATIONS WRITER) Sodium 139 135 - 145 mmol/L Potassium, pl 4.3 3.3 - 4.9 mmol/L [facility] ([place]) Chloride 104 97 - 110 mmol/L [facility]) CO2 23 22 - 32 mmol/L [facility] ([place]) Anion gap 13 2 - 15 mmol/L [facility] ([place]) BUN 54(H) 6 - 25 mg/dL [facility] ([place]) Creatinine 3.10(H) 0.60 - 1.10 mg/dL [facility] ([place]) Glucose 99 70 - 199 mg/dL [facility] ([place]) Comment: Interpretive Data Fasting glucose >/= 126 mg/dl is diagnostic for diabetes. Fasting is defined as no caloric intake for at least 8 hours. Fasting glucose between 100 mg/dl to 125 mg/dl is diagnostic of prediabetes. In a patient with classic symptoms of hyperglycemia or hyperglycemic crisis, a random glucose >/= 200 mg/dl is diagnostic for diabetes. In the absence of unequivocal hyperglycemia, results should be confirmed by repeat testing. The classification and Diagnosis of Diabetes Diabetes Care 202; 46: S19-S40. Current interpretive data was last revised 2022. Calcium 8.5 8.5 - 10.3 mg/dL [facility] ([place]) Phosphorus, pl 5.1(H) 2.3 - 4.5 mg/dL [facility] ([place]) Albumin 3.8 3.5 - 5.0 g/dL [facility] ([place]) Blood 06/13/2024 8:09 AM TECHNICAL PUBLICATIONS WRITER 06/13/2024 8:32 AM TECHNICAL PUBLICATIONS WRITER us Ashu Arevalo MD LAB BLOOD ORDERABLES Fin al Result [facility] ([place]) 1 [facility] Department [place] [address] * (ABNORMAL) Differential, auto (05/31/2024 12:22 PM TECHNICAL PUBLICATIONS WRITER) Neutrophil abs 6.9(H) 1.5 - 6.5 K/cumm Imm gran abs 0.0 0.0 - 0.1 K/cumm [facility] ([place]) Lymphocyte abs 0.9 0.8 - 3.3 K/cumm [facility] ([place]) Monocyte abs 0.8 0.2 - 0.8 K/cumm [facility] ([place]) Eosinophil abs 0.1 0.0 - 0.5 K/cumm [facility] ([place]) Basophil abs 0.0 0.0 - 0.1 K/cumm [facility] ([place]) Neutrophil pct 79.6 % [facility] ([place]) Comment: Interpretive Data Percent cell count reference ranges are not reported, since discordance with absolute values may lead to misinterpretation of CBC data. Current Interpretive Data was last revised on 2017. Imm gran pct 0.3 % [facility] ([place]) Comment: Interpretive Data Percent cell count reference ranges are not reported, since discordance with absolute values may lead to misinterpretation of CBC data. Current Interpretive Data was last revised on 2017. Lymphocyte pct 10.3 % [facility] ([place]) Comment: Interpretive Data Percent cell count reference ranges are not reported, since discordance with absolute values may lead to misinterpretation of CBC data. Current Interpretive Data was last revised on 2017. Monocyte pct 8.7 % [facility] ([place]) Comment: Interpretive Data Percent cell count reference ranges are not reported, since discordance with absolute values may lead to misinterpretation of CBC data. Current Interpretive Data was last revised on 2017. Eosinophil pct 0.9 % [facility] ([place]) Comment: Interpretive Data Percent cell count reference ranges are not reported, since discordance with absolute values may lead to misinterpretation of CBC data. Current Interpretive Data was last revised on 2017. Basophil pct 0.2 % [facility] ([place]) Comment: Interpretive Data Percent cell count reference ranges are not reported, since discordance with absolute values may lead to misinterpretation of CBC data. Current Interpretive Data was last revised on 2017. Blood 05/31/2024 12:2 2 PM TECHNICAL PUBLICATIONS WRITER 05/31/2024 12:34 PM TECHNICAL PUBLICATIONS WRITER us Jason Xavier MD LAB BLOOD ORDERABLES Final Result [facility] ([place] Department [place] [address] * (ABNORMAL) CBC with auto differential (05/31/2024 12:22 PM TECHNICAL PUBLICATIONS WRITER) WBC 8.7 3.8 - 9.9 K/cumm Hgb 6.9(L) 11.9 - 15.5 g/dL [facility] ([place]) Hct 22.4(L) 35.6 - 45.5 % [facility] ([place]) Plt 263 150 - 400 K/cumm [facility] ([place]) MPV 9.7 9.1 - 12.3 fL [facility]) RBC 2.70(L) 3.90 - 5.20 M/cumm [facility] ([place]) MCV 83.0 81.3 - 96.4 fL [facility] ([place]) MCH 25.6(L) 27.1 - 33.3 pg [facility] ([place]) MCHC 30.8(L) 32.3 - 35.7 g/dL [facility] ([place]) RDW CV 17.2(H) 11.1 - 14.9 % [facility] ([place]) RDW SD 51.2(H) 35.7 - 48.1 fL [facility] ([place]) NRBC abs 0.00 0.00 - 0.01 K/cumm [facility] ([place]) Blood 05/31/2024 12:2 2 PM TECHNICAL PUBLICATIONS WRITER 05/31/2024 12:34 PM TECHNICAL PUBLICATIONS WRITER us Jason Xavier MD LAB BLOOD ORDERABLES Final Result [facility] ([place]) 1 [facility] Department [place] [address] * POCT hemoglobin A1c (04/27/2024 1:05 PM TECHNICAL PUBLICATIONS WRITER) Hemoglobin A1C, POC 5.9 4.0 - 5.6 % Blood 04/27/2024 1:05 PM TECHNICAL PUBLICATIONS WRITER us Inna Tsang NP POINT OF CARE TEST ORDERABLES F inal Result * (ABNORMAL) Albumin Creatinine Ratio, Urine (02/23/2024 12:10 PM CDT) Albumin Ur 1,424.9 mg/L Comment: Interpretive Data No reference range established. Current interpretive data was last revised 2018. Testing performed by: [address] [address] Creatinine Ur 128.1 mg/dL [facility] Comment: Interpretive Data No reference range established. Current interpretive data was last revised 2018. Testing performed by: [facility], [address] [place] [address]., [id number] Albumin Creatinine Ratio, Ur 1,112(H) 1 - 29 mg/g [facility] Comment:Testing performed by : [address] [address] Urine 02/23/2024 12:1 0 PM CDT 02/23/2024 9:33 PM CDT us Ashu Arevalo MD LAB URINE ORDERABLES Fin al Result [facility] ([place]) 1 [facility] Department [place] [address] * (ABNORMAL) Lipid panel (12/23/2023 6:39 AM CDT) Cholesterol 152 30 - 199 mg/dL Comment: Interpretive Data Ages < or = 19 years Acceptable: <170 mg/dL Borderline high: 170-199 mg/dL High: >or= 200 mg/dL Ages > or = 20 years Desirable: <200 mg/dL Borderline high: 200-239 mg/dL High: >or= 240 mg/dL Literature References: 1. Expert Panel on Integrated Guidelines for Cardiovascular Health and Risk Reduction in Children and Adolescents. Pediatrics 2011;128:S213 2. NCEP Expert Panel. Circulation 2004;110:227 Current Interpretive Data was last revised on 2017. Triglycerides 238(H) <=149 mg/dL [facility] ([place]) Comment: Interpretive Data Ages < or = 9 years Acceptable: <75 mg/dL Borderline high: 75-99 mg/dL High: >or= 100 mg/dL Ages 10 to 20 years Acceptable: <90 mg/dL Borderline high: 90-129 mg/dL High: >or= 130 mg/dL Ages > or = 20 years Desirable: <150 mg/dL Borderline high: 150-199 mg/dL High: 200-499 mg/dL Very high: >or= 499 mg/dL Literature References: 1. Expert Panel on Integrated Guidelines for Cardiovascular Health and Risk Reduction in Children and Adolescents. Pediatrics 2011;128:S213 2. NCEP Expert Panel. Circulation 2004;110:227 Current Interpretive Data was last revised on 2017. HDL 44 >=40 mg/dL [facility] ([place]) Comment: Interpretive Data Ages < or = 19 years Acceptable: >45 mg/dL Borderline low: 40-45 mg/dL Low: <40 mg/dL Ages > or = 20 years Desirable: >or= 60 mg/dL Low: <40 mg/dL Literature References: 1. Expert Panel on Integrated Guidelines for Cardiovascular Health and Risk Reduction in Children and Adolescents. Pediatrics 2011;128:S213 2. NCEP Expert Panel. Circulation 2004;110:227 Current Interpretive Data was last revised on 2017. LDL, calculated 60 <=129 mg/dL [facility] ([place]) Comment: Interpretive Data Ages < or = 19 years Acceptable: <110 mg/dL Borderline high: 110-129 mg/dL High: >or= 130 mg/dL Ages > or = 20 years Optimal: <100 mg/dL Near optimal: 100-129 mg/dL Borderline high: 130-159 mg/dL High: >160 mg/dL Literature References: 1. Expert Panel on Integrated Guidelines for Cardiovascular Health and Risk Reduction in Children and Adolescents. Pediatrics 2011;128:S213 2. NCEP Expert Panel. Circulation 2004;110:227 Current Interpretive Data was last revised on 2017. Non-HDL Cholesterol 108 mg/dL [facility] ([place]) Comment: Interpretive Data Ages < or = 19 years Acceptable: <120 mg/dL Borderline high: 120-144 mg/dL High: >145 mg/dL Ages > or = 20 years When triglycerides are >200 mg/dL, Non-HDL cholesterol is a secondary target of therapy with treatment goals that are 30 mg/dL greater than the LDL cholesterol target. Literature References: 1. Expert Panel on Integrated Guidelines for Cardiovascular Health and Risk Reduction in Children and Adolescents. Pediatrics 2011;128:S213 2. NCEP Expert Panel. Circulation 2004;110:227 Current Interpretive Data was last revised on 2017. Chol/HDL ratio 3 [facility] ([place]) Blood 12/23/2023 6:39 AM CDT 12/23/2023 7:11 AM CDT Claritza Aviles MANAGER THERAPY LAB BLOOD ORDERABLES Final Result [facility] ([place]) 1 [facility] Department of Laboratories [place], [place] [id number] * Dexa Axial Skeleton Bone Density 1 or 2 Site (04/03/2023 12:42 PM TECHNICAL PUBLICATIONS WRITER) Anatomical Region Laterality Modality Body N/A Other 04/03/2023 1:05 PM TECHNICAL PUBLICATIONS WRITER Narrative 04/03/2023 1:05 PM TECHNICAL PUBLICATIONS WRITER EXAM DESCRIPTION: DEXA AXIAL SKELETON BONE DENSITY 1 OR MORE SITES REASON FOR STUDY: 67 y/o year old F with given history of: history of AI therapy Osteoporosis screening Post menopausal [employer] Testing/Model: [employer] SL (S/N [id number]) CLINICAL INFORMATION: Current height: 65 inches Maximum height: 66 inches Weight: 150 pounds Risk factors: Postmenopausal COMPARISON: None available FINDINGS: AP LUMBAR SPINE L1-L4: Total BMD is 1.103 g/cm2 T-score is 0.5 LEFT HIP: Total BMD is 0.769 g/cm2 T-score is -1.4 Femoral neck BMD is 0.708 g/cm2 T-score is -1.3 FRAX: 10 year risk for a major osteoporotic fracture is 8.7 %, 10 year risk for a hip fracture is 0.8 % IMPRESSION: Low Bone Mass. REFERENCE: Bone mineral density: Normal (T-score above or = -1.0) Low bone mass (T-score between -1.0 and -2.5) replaces the previously used term osteopenia Osteoporosis (T-score = or below -2.5) Medical evaluation for secondary causes of low bone mineral density may be appropriate. FRAX is a World Health Organization validated fracture risk assessment tool that calculates a person's 10 year probability of a major osteoporosis related fracture and hip fracture. According to the National Osteoporosis Foundation guidelines, postmenopausal women and men age 50 or older with low bone mass and a 10 year probability of a major osteoporosis related fracture = or greater than 20% or a 10 year probability of a hip fracture = or greater than 3% should be considered for treatment. For further information, including treatment recommendations, please refer to the 2019 ISCD Official Positions (http://www.iscd.org) and the NOF's Clinician's Guide to Prevention and Treatment of Osteoporosis (http://www.nof.org/professionals/clinical-guidelines) THIS IS AN ELECTRONICALLY VERIFIED FINAL REPORT 04/03/2023 1:05 PM - Electronically signed by Vini Kaur M.D. MF: TOBIN Report ID: [id number] Reading Location: [place] [address] Procedure Note Vini Kaur MD - 04/03/2023 EXAM DESCRIPTION: DEXA AXIAL SKELETON BONE DENSITY 1 OR MORE SITES REASON FOR STUDY: 67 y/o year old F with given history of: history ofAI therapy Osteoporosis screening Post menopausal [employer] Testing/Model: [employer] SL (S/N [id number]) CLINICAL INFORMATION: Current height: 65 inches Maximum height: 66 inches Weight: 150 pounds Risk factors: Postmenopausal COMPARISON: None available FINDINGS: AP LUMBAR SPINE L1-L4: Total BMD is 1.103 g/cm2 T-score is 0.5 LEFT HIP: Total BMD is 0.769 g/cm2 T-score is -1.4 Femoral neck BMD is 0.708 g/cm2 T-score is -1.3 FRAX: 10 year risk for a major osteoporotic fracture is 8.7 %, 10 year risk fora hip fracture is 0.8 % IMPRESSION: Low Bone Mass. REFERENCE: Bone mineral density: Normal (T-score above or = -1.0) Low bone mass (T-score between -1.0 and -2.5) replaces thepreviously used term osteopenia Osteoporosis (T-score = or below -2.5) Medical evaluation for secondary causes of low bone mineral density may be appropriate. FRAX is a World Health Organization validated fracture risk assessmenttool that calculates a person's 10 year probability of a major osteoporosisrelated fracture and hip fracture. According to the National OsteoporosisFoundation guidelines, postmenopausal women and men age 50 or older with low bonemass and a 10 year probability of a major osteoporosis related fracture = or greater than 20% or a 10 year probability of a hip fracture = or greaterthan 3% should be considered for treatment. For further information, including treatment recommendations, please referto the 2019 ISCD Official Positions (http://www.iscd.org) and the NOF's Clinician's Guide to Prevention and Treatment of Osteoporosis (http://www.nof.org/professionals/clinical-guidelines) THIS IS AN ELECTRONICALLY VERIFIED FINAL REPORT 04/03/2023 1:05 PM - Electronically signed by Vini Kaur M.D. MF: TOBIN Report ID: [id number] Reading Location: [place] [address] Shaniqua Ellison NP IMG DXA PROCEDURES Fi nal Result * (ABNORMAL) DIABETES EYE EXAM (05/20/2022 3:39 PM TECHNICAL PUBLICATIONS WRITER) us Historical Provider HEALTH MAINTENANCE Final Result * Screening Mammogram Right W [place] Unilateral Only (03/28/2022 2:03 PM TECHNICAL PUBLICATIONS WRITER) Anatomical Region Laterality Modality Breast Right Mammography Narrative 03/28/2022 3:58 PM TECHNICAL PUBLICATIONS WRITER Mammogram Technique: Right Breast Digital Breast Tomosynthesis, Unilateral C-view 2D Screening mammogram. Views obtained: bilateral craniocaudal and bilateral mediolateral oblique. Computer Aided Detection was performed. Mammogram Findings: The present examination has been compared to prior imaging studies performed on 02/16/2020, at [facility]. [facility] on 04/17/2020 and 05/09/2020, and at [facility] on 03/22/2021. The breast is heterogeneously dense, which may obscure small masses. There is no suspicious abnormality in the right breast. There are no significant changes from the prior study. Patient status post contralateral mastectomy for personal history of breast cancer. Impression: There is no mammographic evidence of malignancy. Annual screening mammography is recommended. OVERALL FINAL ASSESSMENT: BI-RADS CATEGORY 1: Negative. Procedure Note Megan Pickens MD - 03/28/2022 Mammogram Technique: Right Breast Digital Breast Tomosynthesis, Unilateral C-view 2DScreening mammogram. Views obtained: bilateral craniocaudal and bilateral mediolateral oblique. Computer Aided Detection was performed. Mammogram Findings: The present examination has been compared to prior imaging studies performed on 02/16/2020, at [facility]. [facility] on 04/17/2020 and 05/09/2020, and at [facility] on 03/22/2021. The breast is heterogeneously dense, which may obscure small masses. There is no suspicious abnormality in the right breast. There are no significant changes from the prior study. Patient status post contralateral mastectomy for personal history ofbreast cancer. Impression: There is no mammographic evidence of malignancy. Annual screening mammography is recommended. OVERALL FINAL ASSESSMENT: BI-RADS CATEGORY 1: Negative. us Lila James MD IMG MAMMO PROCEDURES Fi nal Result * COLONOSCOPY (10/18/2018 10:00 AM CDT) Anatomical Region Laterality Modality Other Narrative Procedure Note Javier Banda MD - 10/18/2018 10:[address] [facility] Patient Name: Dana Mejia Procedure Date: 10/18/2018 10:00 AM Date of : 1955 Admit Type: Outpatient Age: 62 Gender: Female Attending MD: Javier Banda M.D. Note Status: Finalized Procedure: Colonoscopy Indications: High risk colon cancer surveillance: Personalhistory of colonic polyps, Last colonoscopy: 2010 Referring MD: Vijay Truong M.D. Providers: Javier Banda M.D. Impression: - Hemorrhoids found on perianal exam. - Diverticulosis in the sigmoid colon, at thehepatic flexure and in the ascending colon. - No specimens collected. Recommendation: - Discharge patient to home. - Resume previous diet. - Continue present medications. - Repeat colonoscopy in 5 years for surveillance. - Return to primary care physician as previously scheduled. Medicines: Propofol per Anesthesia Complications: No immediate complications. Estimated Blood Loss: Estimated blood loss: none. Procedure: The benefits, risks and alternatives of theprocedure and sedation were discussed and informed consent was obtained. All questions were answered. Please referto the signed informed consent document in the medical record. The scope was passed under direct vision.The Colonoscope [id number] was introducedthrough the anus and advanced to the the cecum, identifiedby appendiceal orifice and ileocecal valve. The colonoscopy was performed without difficulty. The patient tolerated the procedure well. The quality of the bowel preparation was good. Findings: Hemorrhoids were found on perianal exam. A few small-mouthed diverticula were found in the sigmoid colon,hepatic flexure and ascending colon. The exam was otherwise normal throughout the examined colon. Attending Participation: I personally performed the entire procedure. Electronically signed by Javier Banda M.D. Javier Banda M.D. 10/18/2018 10:27:12 AM Number of Addenda: 0 Note Initiated On: 10/18/2018 10:00 AM Procedure Code(s): --- Professional --- G0105, Colorectal cancer screening; colonoscopy on individual at high risk Diagnosis Code(s): --- Professional --- K57.30, Diverticulosis of large intestine without perforation orabscess without bleeding K64.9, Unspecified hemorrhoids Z86.010, Personal history of colonic polyps CPT copyright 2017 [employer]. All rights reserved. The codes documented in this report are preliminary and upon side framer reviewmay be revised to meet current compliance requirements. Recognized by the [employer] for promoting quality in endoscopy us Javier Banda MD ENDOSCOPY PROCEDURES Final Re sult * Serum Hepatitis C ab (01/29/2015 11:36 AM CDT) HCV ab Negative Negative HISTORICAL RESULTS Serum 01/29/2015 11:3 6 AM CDT Rubina Prasad MD LAB BLOOD ORDERABLES Final Resul t HISTORICAL RESULTS from Last 3 Months or Most Recently Relevant to Health Maintenance Insurance [facility] MEDICARE ADVANTAGE [facility] MEDICARE ADVANTAGE [facility] MEDICARE ADVANTAGE Advance Directives For more information, please contact: [phone] * Full Code (Latest Code Status on File) Date Activated Date Inactivated Comments 05/20/2022 8:49 PM 05/24/2022 8:22 PM * Full Code Date Activated Date Inactivated Comments 10/18/2018 8:35 AM 10/18/2018 3:39 PM * Full Code Date Activated Date Inactivated Comments 10/18/2018 8:34 AM 10/18/2018 8:35 AM Care Teams Filing Clerk Relationship Specialty Start Date End Date Vijay Truong MD [address] [place] [address] PCP - General 08/08/16 Rubén Miranda MD PhD [address] [place] [address] Radiation Oncologist Radiation Oncology 07/27/20 Lila James MD [address] [address] Referring Physician Surgical Oncology 07/27/20 Emile Berger MD [address] [place] [address] Referring Physician Psychiatry & Neurology 02/05/22 Ash Fraga MD [address] [place] [address] Medical Oncologist/Assisted Living Associate Hematology and Oncology 06/11/22
--- OUTSIDE RECORDS SUMMARY | 2024-07-30 21:12 | XMS_ITS | Clinical Summary ---
Author Organization [facility] Address [address] [place] [address] Care Team Providers Care Milking Worker Name Role Phone Vijay Truong MD Primary Care Provider [phone] Source Comments [facility],non-owned Affiliates and Associated Physician Practices is amultiple site organization consisting of ambulatory clinics and hospital sitesin [place], [place], [place] and [place]. This disclosure is being madepursuant to the Care Everywhere program and may not contain all information available regarding this patient. Last updated 18.[facility] Allergies No known active allergies Medications * Be aware that medications may not be up to date on this document. Alwaysverify current medications with the patient. Medication Sig Dispensed Refills Start Date End Date Status atorvastatin (Lipitor) 40 MG tablet Take 1 (one) tablet by mouth at bedtime Active letrozole (Femara) 2.5 MG tablet Take 1 (one) tablet by mouth once daily Active DULoxetine (Cymbalta) 30 MG capsule Take 1 (one) capsule by mouth 2 times daily Active traZODone (Desyrel) 100 MG tablet Take 1 (one) tablet by mouth at bedtime Active lisinopril (Prinivil; Zestril) 10 MG tablet Take 2 (two) tablets by mouth once daily Active pantoprazole EC (Protonix) 40 MG tablet Take 1 (one) tablet by mouth once daily Active hydrOXYzine pamoate (Vistaril) 50 MG capsule Take 2 (two) capsules by mouth at bedtime Active sertraline (Zoloft) 50 MG tablet 11/03/2022 Active risperiDONE (RisperDAL) 2 MG tablet Take 1 (one) tablet by mouth once daily Active insulin glargine (Lantus/Semglee) 100 units/mL pen Inject 24 (twenty four) Units subcutaneously at bedtime 12/08/2022 Active aspirin (Aspirin) 81 MG chew tablet Take 1 (one) tablet by mouth once daily 01/29/2024 Active clopidogrel (plaVIX) 75 MG tablet Take 1 (one) tablet by mouth once daily 02/04/2024 Active oxyCODONE, immediate release, (Roxicodone) 5 MG tabletIndications :End stage renal disease (HCC) TAKE ONE TABLET BY MOUTH EVERY 6 HOURS NEEDED FOR PAIN 12 tablet 01/28/2024 Active Active Problems Problem Noted Date Diagnosed Date ESRD (end stage renal disease) 01/06/2024 History of breast cancer 12/18/2023 Type 2 diabetes mellitus with ophthalmic complic ation 12/18/2023 HTN (hypertension) 12/18/2023 Elevated HDL 12/18/2023 Depression 12/18/2023 Osteoarthritis 12/18/2023 Anxiety 12/18/2023 Social History Tobacco Use Types Packs/Day Years Used Date Smoking Tobacco: Former Cigarettes 2 20 0 05/11/1973 - 05/11/1993 Passive Smoke Exposure: Past Smokeless Tobacco: Never Tobacco Cessation:Counseling Given: Not Answered Alcohol Use Standard Drinks/Week Comments Not Currently 0 (1 standard drink = 0.6 oz pur e alcohol) none in past 20 yrs AUDIT-C Answer Date Recorded Q1: How often do you have a drink containing alcohol? Never 01/28/2024 Q2: How many drinks containi ng alcohol do you have on a typical day when you are drinking? Patient does not drink Q3: How often do you have si x or more drinks on one occasion? Never 01/28/2024 Sex and Gender Information Value Date Recorded Sex Assigned at Not on file Gender Identity Not on file Sexual Orientation Not on file Last Filed Vital Signs Vital Sign Reading Time Taken Comments Blood Pressure 109/61 02/15/2024 3:18 PM CDT Pulse 88 02/15/2024 3:18 PM CDT Temperature 36.1 C (97 F) 02/15/2024 3:18 PM CDT Respiratory Rate 14 02/15/2024 3:18 PM CDT Oxygen Saturation 100% 02/15/2024 3:18 PM CDT Inhaled Oxygen Concentration - - Weight 66.2 kg (146 lb) 02/15/2024 3:18 PM CDT Height 167.6 cm (5' 6 ) 02/15/2024 3:18 PM CDT Body Mass Index 23.57 02/15/2024 3:18 PM CDT Plan of Treatment Health Maintenance Due Date Last Done Comments COLOGUARD (AGES 45-75) - COLON CA SCREENING [address] COLONOGRAPHY - COLON CA SCREENING 1955 FIT - COLON CA SCREENING 1955 FLEX SIG - COLON CA SCREENING 1957 HEPATITIS C SCREENING 12/15/1975 DTAP/TDAP/TD VACCINES (1 - Tdap) 1976 PNEUMOCOCCAL VACCINE 50+ (1 of 2 - PCV) 1976 ZOSTER VACCINE (1 of 2) 12/20/2007 Respiratory Syncytial Virus (RSV) Vaccine Pt: or over 60 yrs (1 - Risk 60-74 years 1-dose series) 2017 DIABETES RETINOPATHY SCREENING 12/18/2023 DIABETES-FOOT EXAM WITH MONOFILAMENT 12/18/2023 COVID-19 VACCINE (2 - 2023- season) 2024 09/17/2020 INFLUENZA VACCINE (#1) 2024 , 01/17/2022, 04/09/2021, Additional history exists MAMMOGRAM 03/28/2024 03/28/2022, 03/11, 03/22/2021, Additional history exists DEPRESSION SCREENING 05/11/2024 MEDICARE AWV CALENDAR YEAR 2024 DIABETES-HGB A1C 06/24/2024 12/23/2023, 04/06/2023 COLONOSCOPY - COLON CA SCREENING 10/18/2028 10/18/2018 Colorectal Cancer Screening 10/18/2028 BONE DENSITY TESTING Completed 04/03/2023 HEPATITIS B VACCINE Aged Out No longe r eligible based on patient's age to complete this topic HIB VACCINE Aged Out No longer eligi ble based on patient's age to complete this topic HPV VACCINE Aged Out No longer eligi ble based on patient's age to complete this topic MENINGOCOCCAL (Group B) VACCINE SHARED DECISION-MAKING Aged Out No longer eligible based on patient's age to complete this topic MENINGOCOCCAL GROUPS A/C/Y/W VACCINE Aged Out No longer eligible based on patient's age to complete this topic Care Teams Milking Worker Relationship Specialty Start Date End Date Vijay Truong MD [address] [place] [address] PCP - General Internal Medicine 01/06/24
--- OUTSIDE RECORDS SUMMARY | 2024-07-30 21:12 | XMS_ITS | Clinical Summary ---
Author Organization [facility] Address [address] [place] [address] Care Team Providers Care Legal Advisor Name Role Phone Vijay Truong Primary Care Provider [phone] Allergies No known active allergies Medications * This document contains information received from the source organization and may not represent a complete record from that organization. amitriptyline (ELAVIL) 25 MG tablet Take 25 mg by mouth every night Active atorvastatin (LIPITOR) 40 MG tablet Take 40 mg by mouth 1 (one) time each day Active glucose blood test strip 1 each by Other route if needed Use as instructed Check fingerstick daily. Active docusate sodium (COLACE) 100 MG capsule Take 100 mg by mouth 2 (two) times a day Active Fenofibrate 50 MG capsule Take 1 capsule by mouth 1 (one) time each day with food Active furosemide (LASIX) 20 MG tablet Take 20 mg by mouth in the morning and 20 mg in the evening and 20 mg before bedtime. Active glipiZIDE (GLUCOTROL XL) 5 MG 24 hr tablet Take 5 mg by mouth 1 (one) time each day Do not crush, chew, or split. Active letrozole (FEMARA) 2.5 MG chemo tablet Take 2.5 mg by mouth 1 (one) time each day Take with or without food. DO NOT START UNTIL AFTER RADIATION TREATMENTS COMPLETED. Active lisinopril (PRINIVIL,ZESTR IL) 30 MG tablet Take 30 mg by mouth 1 (one) time each day Take 2 tablets (20 mg total) by mouth daily. Active risperiDONE (RisperDAL) 2 MG tablet Take 2 mg by mouth 1 (one) time each day Active traZODone (DESYREL) 100 MG tablet Take 100 mg by mouth every night Active insulin glargine (LANTUS) 100 UNIT/ML injection Inject 24 Units under the skin at bed time 3 Active calcitriol (Rocaltrol) 0.25 MCG capsuleIndicati ons:Chronic kidney disease, stage 4 (severe) (HCC) Take 1 capsule (0.25 mcg total) by mouth 3 times weekly: Mon Wed, and Fri in the evening. 36 capsule 2 4 Active Active Problems Problem Noted Date Diagnosed Date Gastroesophageal reflux disease 05/17/2020 Overview (02/12/2022): Last Assessment & Plan: Omeprazole 40mg daily. Reviewed provocative foods to avoid: caffeine, citrus, ETOH, carbonated drinks, fried/fatty/fast foods & rich/creamy sauces. Reviewed diet/exercise recommendations: 20-30min physicaly activity daily at minimum. Reviewed med Ses & scheduling. Weight loss will help improve GERD sxs. Keep HOB elevated 30 degrees & not eat 2-3 hrs before bedtime. Chronic kidney disease stage 4 due to type 2 diabetes mellitus 11/06/2019 Overview (02/12/2022): Last Assessment & Plan: 09/18/20 GFR=17 11/08/20 GFR=26 02/14/21 GFR=22 10/01/21 GFR=27 Scheduled with nephrology 10/25/21. Type 2 diabetes mellitus 11/06/2019 Overview (02/12/2022): Last Assessment & Plan: Improved control with addition of basal insulin. Patient out of glipizide for the past 1 month. Continue keeping bg log. Follow up in 3 months. Lab Results Component Value Date HGBA1C 8.2 10/11/2021 HGBA1C 10.5 07/11/2021 HGBA1C 9.7 04/09/2021 Hypertensive disorder 07/04/2019 Overview (02/12/2022): Last Assessment & Plan: Stable; continue current medication regimen. Fibromyalgia 01/01/2017 Major depressive disorder 01/01/2017 Overview (02/12/2022): Last Assessment & Plan: Managed by Dr. Berger at [facility], following up every 3 months. Continues seeing therapist once monthly. Discussed increasing frequency of counseling to once weekly if able. PHQ today 21. Discussed importance of regular exercise/ healthy diet and general healthy lifestyle to improve moods. Lives at home with son and two grandsons. Reports supportive family. Denies any SI/HI. Encounters Date Type Department Care Team Description 06/20/2024 Documentation Only [place] [facility], [address] [place] [address] Ashu Arevalo MD 06/13/2024 Documentation Only [place] [facility], [address] [address] Ashu Arevalo MD 06/02/2024 Office Communication [place] [facility], [address] [place] [address] Leslie Gutierrez MA from Last 3 Months Immunizations Name Administration Dates Next Due Influenza, MDCK, PF, Quadrivalent 03/02/2017 Influenza, Quadrivalent, Pre servative Free 04/09/2021,02/09/2020,02/23/2018,2015,01/31/2015 Influenza, Unspecified 02/17/2019,02/08/2017 Pneumococcal Conjugate 13-Valent 02/12/2016,12/09 Shingrix 07/13/2020,05/01/2020 Tdap 07/11/2021 Family History Medical History Relation Comments Diabetes Brother Lung cancer Father Pneumonia Mother Cervical cancer Sister Relation Status Comments Brother Father Mother Sister Social History Tobacco Use Types Packs/Day Years Used Date Smoking Tobacco: Former Cigarettes Q uit: 2007 Smokeless Tobacco: Never Tobacco Cessation:Counseling Given: Not Answered Alcohol Use Standard Drinks/Week Comments Never 0 (1 standard drink = 0.6 oz pur e alcohol) Comments Unknown Sex and Gender Information Value Date Recorded Sex Assigned at Not on file Legal Sex Female 9:49 AM EDT Gender Identity Not on file Sexual Orientation Not on file Last Filed Vital Signs Vital Sign Reading Time Taken Comments Blood Pressure 110/58 03/01/2024 4:37 PM CDT Pulse 82 03/01/2024 4:37 PM CDT Temperature 36.5 C (97.7 F) 08/10/2023 2:03 PM CDT Respiratory Rate 19 03/01/2024 4:37 PM CDT Oxygen Saturation 98% 03/01/2024 4:37 PM CDT Inhaled Oxygen Concentration - - Weight 66.2 kg (146 lb) 03/01/2024 4:37 PM CDT Height 167.6 cm (5' 6 ) 08/10/2023 2:03 PM CDT Body Mass Index 23.57 08/10/2023 2:03 PM CDT Plan of Treatment Upcoming Encounters Date Type Department Care Team (Late st Contact Info) Description 08/02/2024 4:00 PM CDT [facility] Visit [facility] [address] [facility] [address] [place] [address] Ashu Arevalo MD 2 [facility] [address] [place] [address] Health Maintenance Due Date Last Done Comments Breast Cancer Screening 1955 Colorectal Cancer Screening: Annual FOBT 2006 Colorectal Cancer Screening: Sigmoidoscopy 2006 Pneumococcal Vaccine: 65+ Years (2 of 2 - PPSV23 or PCV20) 04/08/2016 02/12/2016, 12/20/2012, 12/20/2012 Diabetes: Ophthalmology Exam 12/13/2021 Diabetes: Pedal Pulse Checked 12/13/2021 Diabetes: Sensory Foot Exam 12/13/2021 Diabetes: Visual Foot Exam 12/13/2021 Diabetes: Hemoglobin A1C 07/26/202404/27/ 024, 12/23/2023, 04/06/2023, Additional history exists Colorectal Cancer Screening: Colonoscopy 10/18/2028 10/18/2018 Influenza Vaccine Completed 03/17/2024, , 01/17/2022, Additional history exists Hepatitis B Vaccine Aged Out No longe r eligible based on patient's age to complete this topic Procedures Procedure Name Priority Date/Time Associated Diagnosis Comments EXT RESULT ENTRY Routine 06/13/2024 EXT RESULT ENTRY Routine 04/06/2023 from Last 3 Months or Most Recently Relevant to Health Maintenance Results * (ABNORMAL) EXT RESULT ENTRY (06/13/2024) Only the most recent of2 resultswithin the time period is included. WBC 6.2 3.3 - 10.0 10*3/ML Red Blood Cell Count 2.84(L) Hemoglobin 7.2(L) 12.0 - 16.0 Hematocrit 23.3(L) 36.0 - 46.0 Platelets 319 150 - 399 10*3/UL MCV 82.0 82.0 - 108.0 Neutrophils Absolute 4.10 1.30 - 8.30 10*3/UL Lymphocytes Absolute 1.40 1.40 - 2.90 10*3/UL Monocytes Absolute 0.60 0.20 - 0.80 10*3/UL Eosinophils Absolute 0.10(A) 0.20 - 0.70 10*3/UL Iron 34(L) UG/DL TIBC 333 ug/dL TRANSFERRIN (MG/DL) IN SER/PLAS (EXTERNAL RESULT ENTRY) 10(L) MPV 9.2 MCH 25.4(L) MCHC 30.9 RDW-CV 17.4(H) RDW-SD 52.2(H) PTH 145(H) PG/ML Vitamin D, 1,25-Dihydroxy 8 pg/mL Neutrophils Relative 66 46 - 78 % Immature Granulocytes, Comment 0.2 Lymphocytes 22 Monocytes 9 % Eosinophil % 1.8 % Basophil % 0.5 % 06/13/2024 Historical Provider LAB BLOOD ORDERABLES Jess l Result from Last 3 Months or Most Recently Relevant to Health Maintenance Insurance [facility] MEDICARE Care Teams Legal Advisor Relationship Specialty Start Date End Date Vijay Truong [address] [place] [id number] PCP - General Internal Medicine 12/13/21
--- OUTSIDE RECORDS SUMMARY | 2024-07-30 21:12 | XMS_ITS | Continuity of Care Document ---
Author Organization [facility] Address [address] [place] [phone] Phone Care Team Providers Care Table Hand Name Role Phone Joaquín CHING, Elsa Unavailable [...] Diagnoses Date Provider Providers Copied on Encounter [facility], [address] [place] [address], [id number], tel:[phone] [facility] No Information Joaquín Hunter. [address] [place] [address], [id number], . tel:[phone] [facility], [address] [place] [address], [id number], tel:[phone] [facility] Joaquín Wrightca. [address] [place] [address], [id number], . tel:[phone] Referring Provider: Ashu Yusuf, [address] [place] [address] [address], [place], [address]. tel:[phone] [facility], [address] [place] [address], [id number], tel:[phone] [facility] Joaquín Wrightca. [address] [place] [address], [id number], . tel:[phone] Referring Provider: Ashu Yusuf, [address] [facility] [address], [place], [address]. tel:[phone] As per patient privacy policy some of the clinical information may not be visible. Family History Family Member Type Diagnosis Age At Onset No Information Payers Payer name Insurance type Covered libertarian ID Authoriza tion(s) [facility] [employer] Ad[employer]age CI [id number] Social History Type Description Quantity Date Captured Comments Sex Female Smoking Status No Information Sexual Orientation Straight or heterosexual Gender Identity Female Chief Complaint And Reason For Visit No Information Reason For Referral Reason For Referral No Information Plan Of Treatment Date Type Action Status Future Order: Radiology Order Up per Body Flouroscopy ([id number]), Ordered on: Ordered History Of Present Illness Encounter Date Complaint History Of Prese nt Illness No Information Functional Status Date Functional Assessmen t No Information Instructions Date Instruction Additional Infor mation No Information Assessments Type Assessment Date No Information Patient Care Teams Name Effective Dates (start - stop) Status Members No Information
--- OUTSIDE RECORDS SUMMARY | 2024-07-30 21:12 | XMS_ITS | Referral Summary ---
Author Organization [facility] Address [facility] [place] [address] Care Team Providers Care Arbitrator Name Role Phone Vijay Truong MD Primary Care Provider [phone] Rubén Miranda MD PhD Unavailable [phone] Lila James MD Unavailable [phone] Emile Berger MD Unavailable [phone] Ash Fraga MD Unavailable [phone] Encounters Date Type Department Care Team Description 07/06/2024 3:00 PM BRAKE OPERATOR HELPER Lab [address] [place] [phone] Anemia of chronic renal failure, stage 4 (severe) (HCC) (Primary Dx) 07/06/2024 3:00 PM BRAKE OPERATOR HELPER Clinical Support [address] [place] [phone] Anemia of chronic renal failure, stage 4 (severe) (HCC) (Primary Dx) 06/23/2024 2:00 PM BRAKE OPERATOR HELPER Infusion [address] [place] [phone] Anemia of chronic renal failure, stage 4 (severe) (HCC) (Primary Dx) 06/22/2024 3:00 PM BRAKE OPERATOR HELPER Lab [address] [place] [phone] Anemia in stage 4 chronic kidney disease (HCC) (Primary Dx) 06/22/2024 3:00 PM BRAKE OPERATOR HELPER Clinical Support [address] [place] [phone] Anemia of chronic renal failure, stage 4 (severe) (HCC) (Primary Dx) 06/13/2024 8:05 AM BRAKE OPERATOR HELPER Lab [address] [phone] 06/10/[address] [place] [phone] Ashu Arevalo MD 06/10/[address] [phone] Ashu Arevalo MD 06/08/[address] [phone] Keara Donaldson RN 06/03/[address] [place] [phone] Jason Xavier MD 05/31/2024 12:10 PM BRAKE OPERATOR HELPER Lab [address] [phone] Anemia of chronic renal failure, stage 4 (severe) (HCC) 05/10/2024 Telephone [facility] Accountable Care Organization [address] [place] [phone] Charley Irby Chart Review ([facility] A1C) from Last 3 Months Allergies No known active allergies Medications blood-glucose meter kit Use to test blood sugar once daily. 1 each 04/07/20 18 Active hydrOXYzine (VISTARIL) 50 mg capsuleIndications: Type 2 diabetes mellitus with hyperglycemia, with long-term current use of insulin (HCC) 06/16/19 23 Active lancets miscIndications:Typ e 2 diabetes mellitus with peripheral neuropathy ([facility]) 1 each by other route as directed [...] 2 (two) times a day 30 capsule 12/09/19 Active furosemide (LASIX) 20 mg tablet Take 1/2 tablet daily. 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 E11.65 100 each 4 02/17/[address] (PROTONIX) 40 mg EC tablet Take 1 tablet (40 mg total) by mouth daily 90 tablet 4 03/16/20 24 025 Active calcitRIOL (ROCALTROL) 0.25 mcg capsule Take 1 capsule (0.25 mcg total) by mouth 03/02/20 24 Active atorvastatin (LIPITOR) 40 mg tabletIndications:D yslipidemia associated with type 2 diabetes mellitus (HCC) Take 1 tablet (40 mg total) by [...] 10 mg tabletIndications:H ypertension associated with diabetes (HCC) Take 2 tablets (20 mg total) by [...] 03/17/2024 Assessment & Plan (03/17/2024 7:38 AM BRAKE OPERATOR HELPER): Stable. Following with pulmonology and will continue to do so. Hypertension associated with diabetes 03/17/2024 Assessment & Plan (04/27/2024 1:21 PM BRAKE OPERATOR HELPER): This is a chronic condition which is not at goal on arrival. At goal after rest. Goal is less than 140/90 Continue lisinopril, Lasix Encouraged to monitor weight and B/P at home. Assessment & Plan (03/17/2024 7:39 AM BRAKE OPERATOR HELPER): Normotensive. Continue lisinopril. Will continue to monitor. Colon cancer screening 03/17/2024 Assessment & Plan (03/17/2024 7:39 AM BRAKE OPERATOR HELPER): Referral to GI for screening colonoscopy placed History of colonic polyps 03/17/2024 Encounter for screening colonoscopy 03/17/2024 Anemia of chronic renal failure, stage 4 (severe ) 03/07/2024 Assessment & Plan (03/17/2024 7:36 AM BRAKE OPERATOR HELPER): Stable. Following with Nephrology and will continue [...] Lasix Assessment & Plan (04/06/2023 3:42 PM BRAKE OPERATOR HELPER): This is a chronic condition which is [...] atorvastatin. Assessment & Plan (06/19/2022 2:08 PM BRAKE OPERATOR HELPER): This is a chronic condition which is [...] 01/17/2022 Assessment & Plan (03/17/2024 7:36 AM BRAKE OPERATOR HELPER): Visit preventive in nature. We reviewed medications, [...] 21 Assessment & Plan (04/09/2021 5:57 PM BRAKE OPERATOR HELPER): Vaccine given in office today. Reviewed possible [...] cooking Assessment & Plan (05/16/2022 5:25 PM BRAKE OPERATOR HELPER): Weights stable. Working on diet and exercise, previously riding stationary bike. Assessment & Plan (01/17/2022 10:16 AM CDT): Discussed healthy diet and importance of regular physical activity. Assessment & Plan (10/13/2021 1:35 PM CDT): Congratulated patient on her efforts to improve diet. Discussed healthy diet and importance of regular physical activity. Assessment & Plan (07/11/2021 11:00 AM BRAKE OPERATOR HELPER): Discussed healthy diet and importance of regular physical activity. Assessment & Plan (04/09/2021 5:57 PM BRAKE OPERATOR HELPER): Discussed healthy diet and importance of regular [...] bedtime. Assessment & Plan (05/17/2020 1:10 PM BRAKE OPERATOR HELPER): Omeprazole refilled. Reviewed provocative foods to avoid: caffeine, citrus, ETOH, carbonated drinks, fried/fatty/fast foods & rich/creamy sauces. Reviewed diet/exercise recommendations: 20-30min physicaly activity daily at minimum. Reviewed med Ses & scheduling. Weight loss will help improve GERD sxs. Keep HOB elevated 30 degrees & not eat 2-3 hrs before bedtime. Regional lymph node metastasis present Assessment & Plan (05/17/2020 1:09 PM BRAKE OPERATOR HELPER): L axillary lymph node. Anxious re: new L breast ca dx. Anxious re: pending treatments. Discussed at length during appt. Copies of recent screening/diagnostic mamm & ultrasound of L breast given to mrs Mejia. Discussed lymph node involvement. Referral placed to Dr James at [facility]. Aware that her office will call her [...] from 05/09/2020:Stage IIA(cT2, cN1(f), cM0, G1, ER+, DC+, HER2-) - Signed by Rubén Miradna MD PhD on 07/27/2020 Pathologic stage from 07/02/2020:Stage IA(pT2, pN1a(sn), cM0, G1, ER+, DC+, HER2- ) - Signed by Rubén Miranda MD PhD on 07/27/2020 Assessment & Plan (01/17/2022 10:19 AM CDT): Assessment & Plan (04/09/2021 6:01 PM BRAKE OPERATOR HELPER): Follows with oncology, continues letrozone. To have [...] necessary. Assessment & Plan (05/17/2020 1:08 PM BRAKE OPERATOR HELPER): Anxious re: new L breast ca dx. Anxious re: pending treatments. Discussed at length during appt. Copies of recent screening/diagnostic mamm & ultrasound of L breast given to mrs Mejia. Discussed lymph node involvement. Referral placed to Dr James at [facility]. Aware that her office will call her to set up but number # incase call not rec'd. Referral printed for Mrs Mejia to have address/phone #. Answered any/all questions. aware to call if further questions after she's left. Dyslipidemia associated with type 2 diabetes mary litus 02/08/2020 Assessment & Plan (04/27/2024 1:21 PM BRAKE OPERATOR HELPER): This is a chronic condition which is at goal . Goal is LDL less than 70 Continue atorvastatin Encouraged to eat healthy, include fresh fruits and vegetables daily and avoid eating fried foods more than once per week. Assessment & Plan (03/17/2024 7:36 AM BRAKE OPERATOR HELPER): Stable. Continue atorvastatin. Tolerating without side effects. Will continue to monitor. Assessment & Plan (01/13/2024 12:49 PM CDT): This is a chronic condition which is at goal . Goal is LDL less than 70 Continue atorvastatin Encouraged to eat healthy, include fresh fruits and vegetables daily and avoid eating fried foods more than once per week. Assessment & Plan (04/06/2023 3:43 PM BRAKE OPERATOR HELPER): This is a chronic condition which is [...] prescribed. Assessment & Plan (06/19/2022 2:10 PM BRAKE OPERATOR HELPER): This is a chronic condition which is not at goal of LDL less than 70 Continue atorvastatin Encouraged to eat healthy, include fresh fruits and vegetables daily and avoid eating fried foods more than once per week. Encouraged to take medications as prescribed. Assessment & Plan (05/16/2022 5:17 PM BRAKE OPERATOR HELPER): Continue current regimen. Assessment & Plan (01/17/2022 10:16 AM CDT): 01/10/22 TC 186 TRG 421 HDL 29 LDL 90 Continue current regimen, recommended fish oil supplementation and following low fat diet. Will repeat labs prior to next office visit. Assessment & Plan (10/13/2021 1:35 PM CDT): Continue atorvastatin daily. Assessment & Plan (07/11/2021 11:16 PM BRAKE OPERATOR HELPER): Reviewed previous lipid panel. Doing well on atorvastatin 40 mg daily, denies any medication side effects. Assessment & Plan (04/09/2021 6:00 PM BRAKE OPERATOR HELPER): Results for orders placed or performed in [...] & Plan (08/16/2020 11:24 AM CDT): 12/22/18 JY=969 HDL=43 FD=101 LDL=88 TC/HDL=4.74 07/04/19 TC=78 HDL=32 IG=621 CFH=028 TC/HDL=10.3 11/07/19 HG=686 DL=27 FM=075 QOS=212 CALC TC/HDL=12.0 to lab 02/09/20 YD=144 HDL=38 OW=993 LDL=92 TC/HLD=5.0 The 10-year ASCVD risk score [...] flags. Assessment & Plan (05/17/2020 1:10 PM BRAKE OPERATOR HELPER): We will check labs and make adjustments [...] 10/25/21. Assessment & Plan (05/16/2022 5:23 PM BRAKE OPERATOR HELPER): Following with nephrology. Discussed importance of well controlled blood pressure and diabetes management. Assessment & Plan (01/17/2022 9:44 AM CDT): 09/18/20 GFR=17 7 GFR=26 10 GFR=22 10/01/21 GFR=27 01/10/22 GFR=20 Following with nephrology. Assessment & Plan (10/13/2021 1:41 PM CDT): 09/18/20 GFR=17 11/08/20 GFR=26 10 GFR=22 10/01/21 GFR=27 Scheduled with nephrology 10/25/21. Assessment & Plan (04/09/2021 5:59 PM BRAKE OPERATOR HELPER): 09/18/20 GFR=17 11/08/20 GFR=26 02/14/21 GFR=22 Updated [...] function. Assessment & Plan (05/17/2020 1:11 PM BRAKE OPERATOR HELPER): GFR 11/07/19=35 GFR 02/09/20=35. Has been stable. Will recheck today. Assessment & Plan (02/09/2020 9:31 AM CDT): 11/07/19 GFR=35. Labs ordered; will recheck today. Assessment & Plan (11/07/2019 9:59 AM CDT): CMP drawn 09/28/18 show GFR=27, BUN=45, creatinine=1.92 CMP ordered today. Will contact w/results once rec'd. Will also fax results to Dr Berger as requested by Roberto. Type 2 diabetes mellitus wit h moderate nonproliferative retinopathy of both eyes, with long-term current use of insulin 11/06/2019 Assessment & Plan (05/16/2022 5:23 PM BRAKE OPERATOR HELPER): Lab Results Component Value Date HGBA1C 9.9 [...] 04/09/2021 Assessment & Plan (07/11/2021 11:17 PM BRAKE OPERATOR HELPER): Lab Results Component Value Date HGBA1C 10.5 07/11/2021 HGBA1C 9.7 04/09/2021 HGBA1C 11.7 01/07/2021 Patient agreeable to meet with nurses educator to discuss healthy food choices to improve blood glucose. Referral placed. Will start basal insulin 10 units nightly, reviewed medication administration, follow up in 3 months and bring copy of blood sugar log to next apt. Reviewed s/s of hypo/hypergylcemia. Assessment & Plan (04/09/2021 6:08 PM BRAKE OPERATOR HELPER): Lab Results Component Value Date HGBA1C 9.7 [...] month Assessment & Plan (05/17/2020 1:09 PM BRAKE OPERATOR HELPER): Lab Results Component Value Date HGBA1C 9.6 [...] evaluation. Last eye exam december 2018 at [facility]. Letter sent to get copy of results [...] 04/09/2021 Assessment & Plan (04/27/2024 1:21 PM BRAKE OPERATOR HELPER): This is a chronic condition which is [...] lisinopril. Assessment & Plan (03/17/2024 7:35 AM BRAKE OPERATOR HELPER): Improving. Continue following with endocrinology. Red flags reviewed. Hypertensive disorder 07/04/2019 Overview (05/19/2023): Last Assessment & Plan: Stable; continue current medication regimen. Assessment & Plan (04/06/2023 3:43 PM BRAKE OPERATOR HELPER): This is a chronic condition which is [...] prescribed. Assessment & Plan (06/19/2022 2:09 PM BRAKE OPERATOR HELPER): This is a chronic condition which is at goal of less than 140/90 Hypotension 94/48 Personally reviewed labs. Decrease lisinopril to 10 mg p.o. daily Encouraged to take medications as prescribed. Assessment & Plan (05/16/2022 5:23 PM BRAKE OPERATOR HELPER): Blood pressure well controled today. No changes in current regimen. Assessment & Plan (01/17/2022 10:14 AM CDT): Condition is stable Discussed/ordered labs, encouraged healthy, low carbohydrate lifestyle and at least 150min/week of exercise, continue on lisinopril 20 mg daily. BP checked by myself 118/80 Assessment & Plan (10/13/2021 1:41 PM CDT): Stable; continue current medication regimen. Assessment & Plan (07/11/2021 11:17 PM BRAKE OPERATOR HELPER): BP well controlled today. No changes in current medication regimen. Assessment & Plan (04/09/2021 6:10 PM BRAKE OPERATOR HELPER): Patient encouraged to take BP medication as [...] received. Assessment & Plan (05/17/2020 1:09 PM BRAKE OPERATOR HELPER): Does not check BP at home. The [...] (09/29/2018): Added automatically from request for surgery [id number] Fibromyalgia 01/01/2017 Assessment & Plan (03/17/2024 7:36 AM BRAKE OPERATOR HELPER): Stable on duloxetine. No changes. Will continue to monitor. Primary osteoarthritis involving multiple joints 01/01/2017 Major depressive disorder 01/01/2017 Assessment & Plan (07/11/2021 11:04 AM BRAKE OPERATOR HELPER): Managed by Dr. Berger at [facility], following up every 3 months. Continues seeing therapist once monthly. Discussed increasing frequency of counseling to once weekly if able. PHQ today 21. Discussed importance of regular exercise/ healthy diet and general healthy lifestyle to improve moods. Lives at home with son and two grandsons. Reports supportive family. Denies any SI/HI. Assessment & Plan (04/09/2021 10:47 AM BRAKE OPERATOR HELPER): PHQ=19 (worsening with breast CA diagnosis) Hydroxyzine 25mg q6hr prn, risperidone 2mg nightly, trazodone 100mg nightly, duloxetine DR 60mg daily, amitriptyline 25mg nightly. Managed by Dr Berger at [facility]. Sees him q3mos. Also sees therapist Kay at [facility]. Denies suicidal/homicidal ideation. Assessment & Plan (08/16/2020 11:22 AM CDT): Hydroxyzine 25mg q6hr prn, risperidone 2mg nightly, trazodone 100mg nightly, duloxetine DR 60mg daily, amitriptyline 25mg nightly. Managed by Dr Berger at [facility]. Doing phone visits with him q3mos. Also with therapist Kay at [facility]. Reports good control of depression w/current regimen. No changes to be made at this time. Reviewed med Ses & scheduling. Reviewed red flags. Assessment & Plan (02/09/2020 9:30 AM CDT): Following w/Dr Berger at [facility] every 3 months. following w/monthly therapy appts w/Mellisa Davidson at [facility]. Verified current medications. Will fax lab results to Dr Berger at [facility] once completed. Reports good control of depression w/current regimen. No changes to be made at this time. Reviewed med Ses & scheduling. Reviewed red flags. Assessment & Plan (11/07/2019 10:00 AM CDT): Followed by Dr Berger at [facility]. Reports good control of depression w/current regimen. No changes to be made at this time. Reviewed med Ses & scheduling. Reviewed red flags. Resolved Problems Problem Noted Date Diagnosed Date Resolved Date BMI 27.0-27.9,adult 02/09/2020 08/17/19 21 Assessment & Plan (05/17/2020 1:11 PM BRAKE OPERATOR HELPER): Discussed healthy diet and importance of regular [...] at injection site. BMI 26.0-26.9,adult 11/07/2019 02/09/20 20 Assessment & Plan (11/07/2019 9:35 AM CDT): [...] healthier, we can set up appointment with manager contract/lawyer criminal. 3. Have an active lifestyle, strive for [...] & Plan (11/07/2019 10:01 AM CDT): 12/22/18 WF=584 HDL=43 DI=005 LDL=88 TC/HDL=4.74 07/04/19 TC=78 HDL=32 FM=710 HND=715 TC/HDL=10.3 11/07/19 XA=818 DL=27 GK=156 MLY=211 CALC TC/HDL=12.0 Copy of today's lipid panel given to mrs Mejia. Will have tests verified/repeated at lab today. Aware that atorvastatin will need increased if lipid panel elevated. Immunizations Immunization Administration Dates Next Due COVID-19 mRNA (InstantLuxe) 0.3 m L (30 mcg) vaccine (12 [...] 12/20/2012 Tdap 07/11/2021 ZOSTER Recombinant 07/13/2020,05/01/2020, 020 Social History Tobacco Use Types Packs/Day Years Used Date Smoking Tobacco: Former Cigarettes 1.5 41 1 967 - 2008 Smokeless Tobacco: Never Tobacco Cessation:Counseling Given: Not [...] week 06/26/2022 How often do you attend chur or restoration services? More than 4 times per year 06/26/2022 Do you belong to any clubs o r organizations such as shinto groups, unions, fraternal or athletic groups, or [...] place to sleep or slept in a alf (including now)? No 06/26/2022 Personal Safety Answer Date Recorded Getting School Help Needed Denies 04/27 Education Answer Date Recorded What is the highest level of school you have completed or the highest degree you have received? GED or equivalent 03/2023 Comments No Sex and Gender Information Value Date Recorded Sex Assigned at Not on file Legal Sex Female 12:56 PM BRAKE OPERATOR HELPER Gender Identity Not on file Sexual Orientation Not on file Last Filed Vital Signs Vital Sign Reading Time Taken Comments Blood Pressure 106/55 06/23/2024 3:58 PM BRAKE OPERATOR HELPER Pulse 67 06/23/2024 3:58 PM BRAKE OPERATOR HELPER Temperature 36.6 C (97.9 F) 06/23/2024 3:58 PM BRAKE OPERATOR HELPER Respiratory Rate 20 06/23/2024 3:58 PM BRAKE OPERATOR HELPER Oxygen Saturation 95% 06/23/2024 3:58 PM BRAKE OPERATOR HELPER Inhaled Oxygen Concentration - - Weight 65.3 kg (143 lb 14.4 oz) 06/22/2024 3:08 PM BRAKE OPERATOR HELPER Height 167.6 cm (5' 6 ) 04/27/2024 1:01 PM BRAKE OPERATOR HELPER Body Mass Index 23.23 04/27/2024 1:01 PM BRAKE OPERATOR HELPER Plan of Treatment Upcoming Encounters Date Type Department Care Team (Late st Contact Info) Description 08/24/2024 7:30 AM CDT Hospital Encounter [address] [address] Nathan Brooks DO 4 [facility] [address] KAYE [address] [place] [phone] 08/24/2024 7:30 AM CDT - 08/24/2024 8:00 AM CDT Surgery [address] [address] Nathan Brooks DO 4 [facility] [address] KAYE [address] [place] [phone] COLONOSCOPY Scheduled Procedures Name Priority Associated Diagnoses Date/Ti me COLONOSCOPY History of colonic polyps Encounter for screening colonoscopy 08/24/2024 7:30 AM CDT Medical Devices Implanted Type Area Optical Mechanic Device Identifier Shelf Expiration Date Model / Serial / Lot Bard Peripheral Vascular [id number] Ultraclip Bard 17ga 12cm 2 Trigger Permanent Ultrasound - [id number] - [id number] Implanted:Qty: 1 on 05/09/2020 by Oc Amin MD at [facility] Breast Left: Breast Bard Peripheral Vascular 11/05/2022 [id number] / [id number] / Bard Peripheral Vascular [id number] Ultraclip Bard 17ga 10cm 2 Trigger Permanent Ultrasound - [id number] - [id number] Implanted:Qty: 1 on 05/09/2020 by Oc Amin MD at [facility] Breast Left: Breast Bard Peripheral Vascular 12/05/2022 [id number] / [id number] / Procedures Procedure Name Priority Date/Time Associated Diagnosis Comments DIFFERENTIAL AUTO Routine 07/06/2024 3:0 0 PM BRAKE OPERATOR HELPER Anemia of chronic renal failure, stage 4 (severe) (HCC) CBC WITH AUTO DIFFERENTIAL Routine 07/06/2024 3:00 PM BRAKE OPERATOR HELPER Anemia of chronic renal failure, stage 4 (severe) (HCC) TRANSFUSE RED BLOOD CELLS Timed 06/23/2024 1:55 PM BRAKE OPERATOR HELPER Anemia of chronic renal failure, stage 4 (severe) (HCC) PREPARE RBC Routine 06/22/2024 4:51 PM BRAKE OPERATOR HELPER Anemia of chronic renal failure, stage 4 (severe) (HCC) CROSSMATCH Routine 06/22/2024 3:25 PM BRAKE OPERATOR HELPER Anemia of chronic renal failure, stage 4 (severe) (HCC) ANTIBODY SCREEN Routine 06/22/2024 3:25 PM BRAKE OPERATOR HELPER Anemia of chronic renal failure, stage 4 (severe) (HCC) ABO/RH Routine 06/22/2024 3:25 PM BRAKE OPERATOR HELPER Anemia of chronic renal failure, stage 4 (severe) (HCC) TYPE AND SCREEN Routine 06/22/2024 3:25 PM BRAKE OPERATOR HELPER Anemia of chronic renal failure, stage 4 (severe) (HCC) B ABO / RH CONFIRMATION TESTING STAT 06/22/2024 3:10 PM BRAKE OPERATOR HELPER DIFFERENTIAL AUTO Routine 06/22/2024 3:1 0 PM BRAKE OPERATOR HELPER Anemia of chronic renal failure, stage 4 (severe) (HCC) CBC WITH AUTO DIFFERENTIAL Routine 06/22/2024 3:10 PM BRAKE OPERATOR HELPER Anemia of chronic renal failure, stage 4 (severe) (HCC) EGFR Routine 06/13/2024 8:09 AM BRAKE OPERATOR HELPER DIFFERENTIAL AUTO Routine 06/13/2024 8:0 9 AM BRAKE OPERATOR HELPER IRON PROFILE W/ IBC Routine 06/13/2024 8 :09 AM BRAKE OPERATOR HELPER CALCITRIOL 1,25-DIHYDROXYVITAM IN D Routine 06/13/2024 8:09 AM BRAKE OPERATOR HELPER PTH Routine 06/13/2024 8:09 AM BRAKE OPERATOR HELPER RENAL FUNCTION PANEL Routine 06/13/2024 8:09 AM BRAKE OPERATOR HELPER CBC WITH AUTO DIFFERENTIAL Routine 06/13/2024 8:09 AM BRAKE OPERATOR HELPER DIFFERENTIAL AUTO Routine 05/31/2024 12: 22 PM BRAKE OPERATOR HELPER Anemia of chronic renal failure, stage 4 (severe) (HCC) CBC WITH AUTO DIFFERENTIAL Routine 05/31/2024 12:22 PM BRAKE OPERATOR HELPER Anemia of chronic renal failure, stage 4 (severe) (HCC) POCT HEMOGLOBIN A1C Routine 04/27/2024 1 :05 PM BRAKE OPERATOR HELPER Type 2 diabetes mellitus with hypoglycemia without coma, with long-term current use of insulin (HCC) ALBUMIN CREATININE RATIO, URINE Routine 02/23/2024 12:10 PM CDT LIPID PANEL Routine 12/23/2023 6:39 AM CDT Dyslipidemia associated with type 2 diabetes mellitus (HCC) DEXA AXIAL SKELETON BONE DENSITY 1 OR MORE SITES Schedule Routine, Read Routine (OP Routine) 04/03/2023 12:42 PM BRAKE OPERATOR HELPER At high risk for osteoporosis Age-related osteoporosis without current pathological fracture HM DIABETES EYE EXAM Routine 05/20/2022 3:39 PM BRAKE OPERATOR HELPER SCREENING MAMMOGRAM RIGHT W [place] UNILATERAL ONLY Schedule Routine, Read Routine (OP Routine) 03/28/2022 2:03 PM BRAKE OPERATOR HELPER Personal history of breast cancer Encounter for screening mammogram for malignant neoplasm of breast COLONOSCOPY 10/18/2018 10:00 AM CDT SERUM HEPATITIS C AB Routine 01/29/2015 11:36 AM CDT from Last 3 Months or Most Recently Relevant to Health Maintenance Results * (ABNORMAL) Differential, auto (07/06/2024 3:00 PM BRAKE OPERATOR HELPER) Neutrophil abs 7.7(H) 1.5 - 6.5 K/cumm Comment:Testing performed by : [facility] [address], Medical Office [facility] [address], [place] [address] Imm gran abs 0.0 0.0 - 0.1 K/cumm [facility] ([place]) Comment:Testing performed by : [facility] [address], Medical Office [facility] [address], [place] [address] Lymphocyte abs 0.8 0.8 - 3.3 K/cumm [facility] ([place]) Comment:Testing performed by : [facility] [address], Medical Office [facility] [address], [place] [address] Monocyte abs 0.6 0.2 - 0.8 K/cumm [facility] ([place]) Comment:Testing performed by : [facility] [address], Medical Office [facility] [address], [place] [address] Eosinophil abs 0.0 0.0 - 0.5 K/cumm [facility] ([place]) Comment:Testing performed by : [facility] [address], Medical Office [facility] [address], [place] [address] Basophil abs 0.0 0.0 - 0.1 K/cumm [facility] ([place]) Comment:Testing performed by : [facility] [address], Medical Office Bldg [address], [place] [address] Neutrophil pct 83.9 % [facility] R [facility] ([place]) Comment: Interpretive Data Percent cell count reference ranges are not reported, since discordance with absolute values may lead to misinterpretation of CBC data. Current Interpretive Data was last revised on 2022. Testing performed by: [facility] [address], Medical Office dg B [address], [place] [address] Imm gran pct 0.3 % [facility] ([place]) Comment: Interpretive Data Percent cell count reference ranges are not reported, since discordance with absolute values may lead to misinterpretation of CBC data. Current Interpretive Data was last revised on 2022. Testing performed by: [facility] [address], Medical Office dg B [address], [place] [address] Lymphocyte pct 8.3 % [facility] ([place]) Comment: Interpretive Data Percent cell count reference ranges are not reported, since discordance with absolute values may lead to misinterpretation of CBC data. Current Interpretive Data was last revised on 2022. Testing performed by: [facility] [address], Medical Office [facility] B [address], [place] [address] Monocyte pct 6.7 % [facility] ([place]) Comment: Interpretive Data Percent cell count reference ranges are not reported, since discordance with absolute values may lead to misinterpretation of CBC data. Current Interpretive Data was last revised on 2022. Testing performed by: [facility] [address], Medical Office [facility] [address], [place] [address] Eosinophil pct 0.4 % [facility] ([place]) Comment: Interpretive Data Percent cell count reference ranges are not reported, since discordance with absolute values may lead to misinterpretation of CBC data. Current Interpretive Data was last revised on 2022. Testing performed by: [facility] [address], Medical Office dg B [address], [place] [address] Basophil pct 0.4 % [facility] ([place]) Comment: Interpretive Data Percent cell count reference ranges are not reported, since discordance with absolute values may lead to misinterpretation of CBC data. Current Interpretive Data was last revised on 2022. Testing performed by: [facility] [address], Medical Office [facility] B [address], [place] [address] Blood 07/06/2024 3:00 PM BRAKE OPERATOR HELPER 07/06/2024 3:00 PM BRAKE OPERATOR HELPER us Ashu Arevalo MD LAB BLOOD ORDERABLES Fin al Result [facility] ([place]) 1 [facility] [place] [address] * (ABNORMAL) CBC with auto differential (07/06/2024 3:00 PM BRAKE OPERATOR HELPER) WBC 9.2 3.8 - 9.9 K/cumm Comment:Testing performed by : [facility] [address], Medical Office [facility] B [address], [place] [address] Hgb 8.5(L) 11.9 - 15.5 g/dL [facility] ([place]) Comment:Testing performed by : [facility] [address], Medical Office [facility] B [address], [place] [address] Hct 27.3(L) 35.6 - 45.5 % [facility] ([place]) Comment:Testing performed by : [facility] [address], Medical Office Bl [address], [place] [address] Plt 273 150 - 400 K/cumm [facility] ([place]) Comment:Testing performed by : [facility] [address], Medical Office [facility] B [address], [place] [address] MPV 9.1 9.1 - 12.3 fL [facility] ([place]) Comment:Testing performed by : [facility] [address], Medical Office Bl [address], [place] [address] RBC 3.30(L) 3.90 - 5.20 M/cumm [facility] ([place]) Comment:Testing performed by : [facility] [address], Medical Office Bld[address], [place] [address] MCV 82.7 81.3 - 96.4 fL [facility] ([place]) Comment:Testing performed by : [facility] [address], Medical Office [facility] [address], [place] [address] MCH 25.8(L) 27.1 - 33.3 pg OSMIN ESTRADA ([place]) Comment:Testing performed by : [facility] [address], Medical Office [facility] B [facility] [address], [place] [address] MCHC 31.1(L) 32.3 - 35.7 g/dL OSMIN ESTRADA ([place]) Comment:Testing performed by : [facility] [address], Medical Office [facility] [address], [place] [address] RDW CV 17.4(H) 11.1 - 14.9 % OSMIN ESTRADA ([place]) Comment:Testing performed by : [facility] [address], Medical Office [facility] [address], [place] [address] RDW SD 53.4(H) 35.7 - 48.1 fL OSMIN ESTRADA ([place]) Comment:Testing performed by : [facility] [address], Medical Office [facility] [address], [place] [address] NRBC abs Not Measured 0.00 - 0.01 K/cumm OSMIN ESTRADA ([place]) Comment:Testing performed by : [facility] [address], Medical Office [facility] [address], [place] [address] Blood 07/06/2024 3:00 PM BRAKE OPERATOR HELPER 07/06/2024 3:00 PM BRAKE OPERATOR HELPER us Ashu Arevalo MD LAB BLOOD ORDERABLES Fin al Result OSMIN ESTRADA ([place]) 1 [facility] Department [place] [address] * Transfuse RBC (06/23/2024 4:02 PM BRAKE OPERATOR HELPER) Blood us Ashu Arevalo MD BLOOD TRANSFUSION ORDERA BLES Final Result * Prepare RBC: 1 Units (06/22/2024 4:51 PM BRAKE OPERATOR HELPER) Units requested 1 Comment:Testing performed by : [place], [address] Units requested Ready OSMIN ESTRADA ([place]) Comment:Testing performed by : [place], [address] Unit Number [id number] Product code [id number] [facility] ([place]) Blood Expiration Date [id number] [facility] ([place]) Product Blood Type (for scanning) 9500 [facility] ([place]) Product Blood Type ONEG [facility] ([place]) Dispense Status DISPENSED [facility] ([place]) Blood 06/22/2024 4:51 PM BRAKE OPERATOR HELPER 06/22/2024 4:51 PM BRAKE OPERATOR HELPER us Ashu rAevalo MD BLOOD BANK PRODUCT ORDER LUBA Final Result Performing Organization Address [facility]/ZIP Co de Phone Number OSMIN ESTRADA ([place]) [address] [place] [address] Department [place] [address] * ABO/Rh (06/22/2024 3:25 PM BRAKE OPERATOR HELPER) ABO/Rh O Negative Comment:Testing performed by : [place], [address] Blood 06/22/2024 3:25 PM BRAKE OPERATOR HELPER 06/22/2024 3:58 PM BRAKE OPERATOR HELPER us Ashu Arevalo MD LAB BLOOD BANK TEST ORDE RABLES Final Result OSMIN ESTRADA ([place]) [address] [place] [address] Department [place] [address] * Crossmatch (06/22/2024 3:25 PM BRAKE OPERATOR HELPER) Crossmatch Compatible OSMIN A PARDEEP ([place]) Unit number for crossmatch [id number] [facility] ([place]) Blood 06/22/2024 3:25 PM BRAKE OPERATOR HELPER 06/22/2024 3:58 PM BRAKE OPERATOR HELPER us Ashu Arevalo MD LAB BLOOD BANK TEST ORDE RABLES Final Result OSMIN ESTRADA ([place]) 1 [facility] Department [place] [address] * Antibody screen (06/22/2024 3:25 PM BRAKE OPERATOR HELPER) Charles, indirect, Gel Interpretation Negative ABSC Comment:Testing performed by : [facility], One [facility], [place], [address] Blood 06/22/2024 3:25 PM BRAKE OPERATOR HELPER 06/22/2024 3:58 PM BRAKE OPERATOR HELPER us Ashu Arevalo MD LAB BLOOD BANK TEST ORDE RABLES Final Result OSMIN ESTRADA ([place]) 1 [facility] [place] [address] * Differential, auto (06/22/2024 3:10 PM BRAKE OPERATOR HELPER) Neutrophil abs 4.3 1.5 - 6.5 K/cumm Comment:Testing performed by : [facility] [address], Medical Office [facility] [address], [place] [address] Imm gran abs 0.0 0.0 - 0.1 K/cumm [facility] ([place]) Comment:Testing performed by : [facility] [address], Medical Office [facility] [address], [place] [address] Lymphocyte abs 1.2 0.8 - 3.3 K/cumm [facility] ([place]) Comment:Testing performed by : [facility] [address], Medical Office [facility] [address], [place] [address] Monocyte abs 0.6 0.2 - 0.8 K/cumm [facility] ([place]) Comment:Testing performed by : [facility] [address], Medical Office [facility] [address], [place] [address] Eosinophil abs 0.0 0.0 - 0.5 K/cumm [facility] ([place]) Comment:Testing performed by : [facility] [address], Medical Office [facility] [address], [place] [address] Basophil abs 0.0 0.0 - 0.1 K/cumm [facility] ([place]) Comment:Testing performed by : [facility] [address], Medical Office [facility] [address], [place] [address] Neutrophil pct 69.5 % [facility] ([place]) Comment: Interpretive Data Percent cell count reference ranges are not reported, since discordance with absolute values may lead to misinterpretation of CBC data. Current Interpretive Data was last revised on 2022. Testing performed by: [facility] [address], Medical Office [facility] [address], [place] [address] Imm gran pct 0.2 % [facility] ([place]) Comment: Interpretive Data Percent cell count reference ranges are not reported, since discordance with absolute values may lead to misinterpretation of CBC data. Current Interpretive Data was last revised on 2022. Testing performed by: [facility] [address], Medical Office [facility] [address], [place] [address] Lymphocyte pct 19.9 % [facility] ([place]) Comment: Interpretive Data Percent cell count reference ranges are not reported, since discordance with absolute values may lead to misinterpretation of CBC data. Current Interpretive Data was last revised on 2022. Testing performed by: [facility] [address], Medical Office [facility] [address], [place] [address] Monocyte pct 9.8 % [facility] ([place]) Comment: Interpretive Data Percent cell count reference ranges are not reported, since discordance with absolute values may lead to misinterpretation of CBC data. Current Interpretive Data was last revised on 2022. Testing performed by: [facility] [address], Medical Office [facility] [address], [place] [address] Eosinophil pct 0.3 % [facility] ([place]) Comment: Interpretive Data Percent cell count reference ranges are not reported, since discordance with absolute values may lead to misinterpretation of CBC data. Current Interpretive Data was last revised on 2022. Testing performed by: [facility] [address], Medical Office [facility] [address], [place] [address] Basophil pct 0.3 % OSMIN ESTRADA ([place]) Comment: Interpretive Data Percent cell count reference ranges are not reported, since discordance with absolute values may lead to misinterpretation of CBC data. Current Interpretive Data was last revised on 2022. Testing performed by: [facility] [address], Medical Office [facility] B [address], [place] [address] Blood 06/22/2024 3:10 PM BRAKE OPERATOR HELPER 06/22/2024 3:14 PM BRAKE OPERATOR HELPER Ashu Arevalo MD LAB BLOOD ORDERABLES Fin al Result SONJAGREG ESTRADA ([place]) 1 [facility] Department [place] [address] * ABO / Rh Confirmation Testing (06/22/2024 3:10 PM BRAKE OPERATOR HELPER) ABO/Rh Confirmation O Negative COUNTS INCLUDE 234 BEDS AT [facility] Comment:Testing performed by : [facility], One [facility], [place], [address] Blood 06/22/2024 3:10 PM BRAKE OPERATOR HELPER 06/22/2024 4:00 PM BRAKE OPERATOR HELPER Ashu Arevalo MD LAB BLOOD ORDERABLES Fin al Result SONJAGREG NATALIE ([place]) 1 [facility] Department [place] [address] AMH * (ABNORMAL) CBC with auto differential (06/22/2024 3:10 PM BRAKE OPERATOR HELPER) WBC 6.1 3.8 - 9.9 K/cumm Comment:Testing performed by : [facility] [address], Medical Office [facility] B [address], [place] [address] Hgb 6.9(L) 11.9 - 15.5 g/dL OSMIN ESTRADA ([place]) Comment:Testing performed by : [facility] [address], Medical Office [facility] [address], [place] [address] Hct 21.7(L) 35.6 - 45.5 % [facility] ([place]) Comment:Testing performed by : [facility] [address], Medical Office [facility] B [facility] [address], [place] [address] Plt 227 150 - 400 K/cumm [facility] ([place]) Comment:Testing performed by : [facility] [address], Medical Office [facility] B [address], [place] [address] MPV 9.1 9.1 - 12.3 fL [facility] ([place]) Comment:Testing performed by : [facility] [address], Medical Office [facility] B [facility] [address], [place] [address] RBC 2.74(L) 3.90 - 5.20 M/cumm [facility] ([place]) Comment:Testing performed by : [facility] [address], Medical Office [facility] [address], [place] [address] MCV 79.2(L) 81.3 - 96.4 fL [facility] ([place]) Comment:Testing performed by : [facility] [address], Medical Office [facility] B [facility] [address], [place] [address] MCH 25.2(L) 27.1 - 33.3 pg [facility] ([place]) Comment:Testing performed by : [facility] [address], Medical Office [facility] B [facility] [address], [place] [address] MCHC 31.8(L) 32.3 - 35.7 g/dL [facility] ([place]) Comment:Testing performed by : [facility] [address], Medical Office [facility] B [facility] [address], [place] [address] RDW CV 18.6(H) 11.1 - 14.9 % [facility] ([place]) Comment:Testing performed by : [facility] [address], Medical Office [facility] B [facility] [address], [place] [address] RDW SD 54.3(H) 35.7 - 48.1 fL [facility] ([place]) Comment:Testing performed by : [facility] [address], Medical Office [facility] B [address], [place] [address] NRBC abs Not Measured 0.00 - 0.01 K/cumm [facility] ([place]) Comment:Testing performed by : [facility] [place], 4 [facility] , Medical Office Bldg [address], [place] [address] Blood 06/22/2024 3:10 PM BRAKE OPERATOR HELPER 06/22/2024 3:14 PM BRAKE OPERATOR HELPER Ashu Arevalo MD LAB BLOOD ORDERABLES Fin al Result OSMIN ESTRADA ([place]) 1 [facility] Department [place] [address] * (ABNORMAL) Calcitriol 1,25 Dihydroxyvitamin D (06/13/2024 8:09 AM BRAKE OPERATOR HELPER) [facility] Vit D3 1, 25 9 NO REFERENCE RANGE pg/mL [facility] Lab Vit D2 1, 25 <8 NO REFERENCE RANGE pg/mL OSMIN ESTRADA ([place]) Comment: This test was developed and its analytical performance characteristics have been determined by [facility]. It has not been cleared or approved by FDA. This assay has been validated pursuant to the CLIA regulations and is used for clinical purposes. For additional information, please refer to http://education.[employer].FindIt/faq/YIZ761 (This link is being provided for informational/educational purposes only.) Test Performed by: [facility]/[address] [id number] Vit D 1, 25 total 9(L) 18 - 72 pg/mL OSMIN ESTRADA ([place]) Comment: Reference Ranges for Vitamin D, 1,25 [...] 1,25 (OH)2, Total. Blood 06/13/2024 8:09 AM BRAKE OPERATOR HELPER 06/13/2024 8:32 AM BRAKE OPERATOR HELPER Ashu Arevalo MD LAB BLOOD ORDERABLES Fin al Result OSMIN ESTRADA ([place]) 1 [facility] [place] [address] [facility] * (ABNORMAL) eGFR (06/13/2024 8:09 AM BRAKE OPERATOR HELPER) Pathologist [facility] eGFR 16(L) >=60 mL/min/1. 73 m2 Comment: [...] last reviewed 2021. Blood 06/13/2024 8:09 AM BRAKE OPERATOR HELPER 06/13/2024 8:32 AM BRAKE OPERATOR HELPER Ashu Arevalo MD LAB BLOOD ORDERABLES Fin al Result OSMIN ESTRADA ([place]) 1 [facility] [place] [address] * Differential, auto (06/13/2024 8:09 AM BRAKE OPERATOR HELPER) Neutrophil abs 4.1 1.5 - 6.5 K/cumm Imm gran abs 0.0 0.0 - 0.1 K/cumm [facility] ([place]) Lymphocyte abs 1.4 0.8 - 3.3 K/cumm [facility] ([place]) Monocyte abs 0.6 0.2 - 0.8 K/cumm [...] 2017. Basophil pct 0.5 % [facility] ([place]) Comment: Interpretive Data Percent cell count reference ranges are not reported, since discordance with absolute values may lead to misinterpretation of CBC data. Current Interpretive Data was last revised on 2017. Blood 06/13/2024 8:09 AM BRAKE OPERATOR HELPER 06/13/2024 8:32 AM BRAKE OPERATOR HELPER us Ashu Arevalo MD LAB BLOOD ORDERABLES Fin al Result OSMIN COUNTS INCLUDE 234 BEDS AT [facility] ([place]) 1 [facility] [place] [address] * (ABNORMAL) Iron profile w/ IBC (06/13/2024 8:09 AM BRAKE OPERATOR HELPER) Pathologist [facility] Iron 34(L) 35 - 145 mcg/dL TIBC 333 250 - 400 mcg/dL [facility] ([place]) Transferrin saturation 10(L) 20 - 50 % [facility] ([place]) Blood 06/13/2024 8:09 AM BRAKE OPERATOR HELPER 06/13/2024 8:32 AM BRAKE OPERATOR HELPER us Ashu Arevalo MD LAB BLOOD ORDERABLES Fin al Result [facility] ([place]) 1 [facility] Department [place] [address] * (ABNORMAL) CBC with auto differential (06/13/2024 8:09 AM BRAKE OPERATOR HELPER) Pathologist [facility] WBC 6.2 3.8 - 9.9 K/cumm Hgb [...] [facility] ([place]) Blood 06/13/2024 8:09 AM BRAKE OPERATOR HELPER 06/13/2024 8:32 AM BRAKE OPERATOR HELPER Ashu Arevalo MD LAB BLOOD ORDERABLES Fin al Result Performing Organization Address City/[facility]/ZIP Co de Phone Number OSMIN ESTRADA ([place]) 1 [place] [address] * (ABNORMAL) PTH (06/13/2024 8:09 AM BRAKE OPERATOR HELPER) PTH 145(H) 15 - 65 pg/mL Blood 06/13/2024 8:09 AM BRAKE OPERATOR HELPER 06/13/2024 8:32 AM BRAKE OPERATOR HELPER Ashu Arevalo MD LAB BLOOD ORDERABLES Fin al Result Performing Organization Address [facility] de Phone Number OSMIN ESTRADA ([place]) 1 [place] [address] * (ABNORMAL) Renal function panel (06/13/2024 8:09 AM BRAKE OPERATOR HELPER) Sodium 139 135 - 145 mmol/L Potassium, pl 4.3 3.3 - 4.9 mmol/L [facility] ([place]) Chloride 104 97 - 110 mmol/L [facility] ([place]) CO2 23 22 - 32 mmol/L [facility] ([place]) Anion gap 13 2 - 15 mmol/L [facility] ([place]) BUN 54(H) 6 - 25 mg/dL [facility] ([place]) Creatinine 3.10(H) 0.60 - 1.10 mg/dL [facility] ([place]) Glucose 99 70 - 199 mg/dL [facility] ([place]) Comment: Interpretive Data Fasting glucose [...] classification and Diagnosis of Diabetes Diabetes Care 2021; 46: S19-S40. Current interpretive data was last revised 2022. Calcium 8.5 8.5 - 10.3 mg/dL [facility] ([place]) Phosphorus, pl 5.1(H) 2.3 - 4.5 mg/dL [facility] ([place]) Albumin 3.8 3.5 - 5.0 g/dL [facility] ([place]) Blood 06/13/2024 8:09 AM BRAKE OPERATOR HELPER 06/13/2024 8:32 AM BRAKE OPERATOR HELPER us Ashu Arevalo MD LAB BLOOD ORDERABLES Fin al Result [facility] ([place]) 1 [facility] Department [place] [address] * (ABNORMAL) Differential, auto (05/31/2024 12:22 PM BRAKE OPERATOR HELPER) Neutrophil abs 6.9(H) 1.5 - 6.5 K/cumm Imm gran abs 0.0 0.0 - 0.1 K/cumm [facility] ([place]) Lymphocyte abs 0.9 0.8 - 3.3 K/cumm [facility] ([place]) Monocyte abs 0.8 0.2 - 0.8 K/cumm [facility] ([place]) Eosinophil abs 0.1 0.0 - 0.5 K/cumm [facility] ([place]) Basophil abs 0.0 0.0 - 0.1 K/cumm [facility] ([place]) Neutrophil pct 79.6 % C[facility] R [facility] ([place]) Comment: Interpretive [...] on 2017. Blood 05/31/2024 12:2 2 PM BRAKE OPERATOR HELPER 05/31/2024 12:34 PM BRAKE OPERATOR HELPER us Jason Xavier MD LAB BLOOD ORDERABLES Final Result [facility] ([place]) 1 [facility] Department [place] [address] * (ABNORMAL) CBC with auto differential (05/31/2024 12:22 PM BRAKE OPERATOR HELPER) WBC 8.7 3.8 - 9.9 K/cumm Hgb [...] ([place]) MCHC 30.8(L) 32.3 - 35.7 g/dL [facility] ([place]) RDW CV 17.2(H) 11.1 - 14.9 % [facility] ([place]) RDW SD 51.2(H) 35.7 - 48.1 fL [facility] ([place]) NRBC abs 0.00 0.00 - 0.01 K/cumm [facility] ([place]) Blood 05/31/2024 12:2 2 PM BRAKE OPERATOR HELPER 05/31/2024 12:34 PM BRAKE OPERATOR HELPER us Jason Xavier MD LAB BLOOD ORDERABLES Final Result [facility] ([place]) 1 [facility] [place] [address] * POCT hemoglobin A1c (04/27/2024 1:05 PM BRAKE OPERATOR HELPER) Hemoglobin A1C, POC 5.9 4.0 - 5.6 % Blood 04/27/2024 1:05 PM BRAKE OPERATOR HELPER Inna Tsang NP POINT OF CARE TEST ORDERABLES F inal Result * (ABNORMAL) Albumin Creatinine Ratio, Urine (02/23/2024 12:10 PM CDT) Albumin Ur 1,424.9 mg/L Comment: Interpretive Data No reference range established. Current interpretive data was last revised 2018. Testing performed by: [facility], [address] [place] [address]., [id number] Creatinine Ur 128.1 mg/dL [facility] ([place]) Comment: Interpretive Data No reference range established. Current interpretive data was last revised 2018. Testing performed by: [facility], [address] [place] [address]., [id number] Albumin Creatinine Ratio, Ur 1,112(H) 1 - 29 mg/g [facility] ([place]) Comment:Testing performed by : [facility], [address] [place] [address]., [id number] Urine 02/23/2024 12:1 0 PM CDT 02/23/2024 9:33 PM CDT us Ashu Arevalo MD LAB URINE ORDERABLES Fin al Result OSMIN ESTRADA ([place]) 1 [facility] [place] [address] * (ABNORMAL) Lipid panel (12/23/2023 6:39 AM [...] CDT 12/23/2023 7:11 AM CDT Claritza Aviles NP LAB BLOOD ORDERABLES Final Result OSMIN ESTRADA ([place]) 1 [facility] [place] [address] * Dexa Axial Skeleton Bone Density 1 or 2 Site (04/03/2023 12:42 PM BRAKE OPERATOR HELPER) Anatomical Region Laterality Modality Body N/A Other 04/03/2023 1:05 PM BRAKE OPERATOR HELPER Narrative 04/03/2023 1:05 PM BRAKE OPERATOR HELPER EXAM DESCRIPTION: DEXA AXIAL SKELETON BONE DENSITY 1 OR MORE SITES REASON FOR STUDY: 67 y/o year old F with given history of: history of AI therapy Osteoporosis screening Post menopausal Optical Mechanic/Model: Parature SL (S/N [id number]) CLINICAL INFORMATION: Current height: 65 inches Maximum [...] Vini Kaur M.D. MF: TOBIN Report ID: [id number] Reading Location: [id number] Procedure Note Vini Kaur MD - 04/03/2023 EXAM DESCRIPTION: DEXA AXIAL SKELETON BONE DENSITY 1 OR MORE SITES REASON FOR STUDY: 67 y/o year old F with given history of: history ofAI therapy Osteoporosis screening Post menopausal Optical Mechanic/Model: Parature SL (S/N [id number]) CLINICAL INFORMATION: Current height: 65 inches Maximum [...] Vini Kaur M.D. MF: TOBIN Report ID: [id number] Reading Location: [id number] Shaniqua Ellison BEHAVIORAL HEALTH CONSULTANT IMG DXA PROCEDURES Fi nal Result * (ABNORMAL) DIABETES EYE EXAM (05/20/2022 3:39 PM BRAKE OPERATOR HELPER) Historical Provider HEALTH MAINTENANCE Final Result * Screening Mammogram Right W Wesley Unilateral Only (03/28/2022 2:03 PM BRAKE OPERATOR HELPER) Anatomical Region Laterality Modality Breast Right Mammography Narrative 03/28/2022 3:58 PM BRAKE OPERATOR HELPER Mammogram Technique: Right Breast Digital Breast Tomosynthesis, Unilateral C-view 2D Screening mammogram. Views obtained: bilateral craniocaudal and bilateral mediolateral oblique. Computer Aided Detection was performed. Mammogram Findings: The present examination has been compared to prior imaging studies performed on 02/16/2020, at [facility]. [facility] on 04/17/2020 and 05/09/2020, and at [facility] on 03/22/2021. The breast is heterogeneously [...] prior imaging studies performed on 02/16/2020, at [facility]. [facility] on 04/17/2020 and 05/09/2020, and at [facility] on 03/22/2021. The breast is heterogeneously dense, which may obscure small masses. There is no suspicious abnormality in the right breast. There are no significant changes from the prior study. Patient status post contralateral mastectomy for personal history ofbreast cancer. Impression: There is no mammographic evidence of malignancy. Annual screening mammography is recommended. OVERALL FINAL ASSESSMENT: BI-RADS CATEGORY 1: Negative. Lila James MD IMG MAMMO PROCEDURES Fi nal Result * COLONOSCOPY (10/18/2018 10:00 AM CDT) Anatomical Region Laterality Modality Other Narrative Procedure Note Javier Banda MD - 10/18/2018 10:00 AM CDT [facility] Patient Name: Dana Mejia Procedure Date: [...] scope was passed under direct vision.The Colonoscope [id number] was introducedthrough the anus and advanced to [...] history of colonic polyps CPT copyright 2017 [employer]. All rights reserved. The codes documented in this report are preliminary and upon school plant consultant reviewmay be revised to meet current compliance requirements. Recognized by the [employer] for promoting quality in endoscopy us Javier Banda MD ENDOSCOPY PROCEDURES Final Re sult * Serum Hepatitis C ab (01/29/2015 11:36 AM CDT) HCV ab Negative Negative HISTORICAL RESULTS Serum 01/29/2015 11:3 6 AM CDT us Rubina Prasad MD LAB BLOOD ORDERABLES Final Resul t HISTORICAL RESULTS from Last 3 Months or Most Recently Relevant to Health Maintenance Insurance [facility] MEDICARE ADVANTAGE [facility] MEDIC[facility] Address: [address] [address] [place] [address] [facility] MEDICARE ADVANTAGE [facility] MEDIC[facility] Address: [address] [address] [place] [address] [facility] MEDICARE ADVANTAGE [facility] MEDIC[facility] Address: [address] [address] [place] [address] Advance Directives For more information, please contact: [phone] * Full Code (Latest Code Status on File) Date Activated Date Inactivated Comments 05/20/2022 8:49 PM 05/24/2022 8:22 PM * Full Code Date Activated Date Inactivated Comments 10/18/2018 8:35 AM 10/18/2018 3:39 PM * Full Code Date Activated Date Inactivated Comments 10/18/2018 8:34 AM 10/18/2018 8:35 AM Care Teams Arbitrator Relationship Specialty Start Date End Date Vijay Truong MD [address] [place] [address] PCP - General 08/08/16 Rubén Miranda MD PhD [address] [place] [id number] Radiation Oncologist Radiation Oncology 07/27/20 Lila James MD [address] [address] Referring Physician Surgical Oncology 07/27/20 Emile Berger MD [address] [place] [address] Referring Physician Psychiatry & Neurology 02/05/22 Ash Fraga MD [address] [place] [address] Medical Oncologist/Meat Loiner Hematology and Oncology 06/11/22
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
[2024-07-30] MEDS: SULFAMETHOXAZOLE/TRIMETHOPRIM 800/160 MG DS TABLET 1 TAB PO (21:24)
[2024-07-30] MEDS: TETANUS,DIPHTHERIA,AC PERTUSSIS ADULT 0.5 ML (ADACEL) IM (21:24)
[2024-07-30] MEDS: KETOROLAC 30 MG/ML VIAL (*BKC) IM (21:25)
--- OUTSIDE RECORDS SUMMARY | 2024-07-30 21:25 | XMS_ITS | Continuity of Care Document ---
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 [address] [place] [address], [id number], . tel:[phone] [facility], [address] [place] [address], [id number], tel:[phone] [facility] Joaquín Wrightca. [address] [place] [address], [id number], . tel:[phone] Referring Provider: Ashu Yusuf, [address] [place] [address] [address], [place], [address]. tel:[phone] [facility], [address] [place] [address], [id number], tel:[phone] [facility] Joaquín Wrightca. [address] [place] [address], [id number], . tel:[phone] Referring Provider: Ashu Yusuf, [address] [facility] [address], [place], [address]. tel:[phone] As per patient privacy policy some of the clinical information may not be visible. Family History Family Member Type Diagnosis Age At Onset No Information Payers Payer name Insurance type Covered alliance party ID Authoriza tion(s) [facility] [employer] Ad[employer]age CI [id number] Social History Type Description Quantity Date Captured Comments Sex Female Smoking Status No Information Sexual Orientation Straight or heterosexual Gender Identity Female Chief Complaint And Reason For Visit No Information Reason For Referral Reason For Referral No Information Plan Of Treatment Date Type Action Status Future Order: Radiology Order Up per Body Flouroscopy ([id number]), Ordered on: Ordered History Of Present Illness Encounter Date Complaint History Of Prese nt Illness No Information Functional Status Date Functional Assessmen t No Information Instructions Date Instruction Additional Infor mation No Information Assessments Type Assessment Date No Information Patient Care Teams Name Effective Dates (start - stop) Status Members No Information
[2024-07-30 21:49] VITALS: BP 186/92; PULSE 80; RESP 18; O2SAT 100
== END 2024-07-30 21:49 | disposition home or self-care (01) ==
LOC: CHSED 21:22
PROVIDERS: Emergency Provider Emergency Medicine; PCP Family Medicine
DX: T23.232A Burn of second degree of multiple left fingers (nail), not including thumb, initial encounter (principal); T31.0 Burns involving less than 10% of body surface; Z23 Encounter for immunization; X19.XXXA Contact with other heat and hot substances, initial encounter
CPT/HCPCS: 90471; 90715; 96372; 99283; A9270; J1885

== ENCOUNTER 2024-10-14 13:03 | Emergency (ER) | payer MEDICARE, MEDICAID, SELFPAY ==
[2024-10-14 13:05] VITALS: BP 154/82; PULSE 97; RESP 20; TEMP 36.7; O2SAT 100
--- OUTSIDE RECORDS SUMMARY | 2024-10-14 13:05 | XMS_ITS | Referral Summary ---
Author Organization [facility] Address [address] [place] [id number] Care Team Providers Care Inclusion Teacher Name Role Phone Vijay Truong MD Primary Care Provider [phone] Rubén Miranda MD PhD Unavailable [phone] Lila James MD Unavailable [phone] Emile Berger MD Unavailable [phone] Ash Fraga MD Unavailable [phone] Encounters Date Type Department Care Team Description 10/13/2024 Orders Only [facility] [address] [phone] Radha Rodriges MD 09/19/2024 Telephone [facility] [address] [address] Vijay Truong MD Medical Records Request 09/15/2024 12:30 PM CDT Office Visit [facility] [address] [phone] Nidia Rojas NP Dyslipidemia associated with type 2 diabetes mellitus (HCC) (Primary Dx); Screening mammogram for breast cancer; Hypertension associated with diabetes (HCC); Anemia of chronic renal failure, stage 4 (severe) (HCC) 09/12/2024 8:55 AM CDT [address] [address] Dyslipidemia associated with type 2 diabetes mellitus (HCC); Hypertension associated with diabetes (HCC) 09/09/2024 Telephone [facility] [address] [phone] Inna Lugo MA Labs Requested for Appointment 08/28/2024 Results Follow-Up [facility] Gastroenterology at [address] [place] [address] Nathan Brooks, Surgical pathology 08/24/2024 8:03 AM CDT Anesthesia Event [address] [address] Piter Spencer, 08/24/2024 7:30 AM CDT - 08/24/2024 8:00 AM CDT Surgery [address] [address] Nathan Brooks, COLON BIOPSY 08/24/2024 6:00 AM CDT - 08/24/2024 9:11 AM CDT Hospital Encounter [address] [address] Nathan Brooks, History of colonic polyps; Encounter for screening colonoscopy Discharge Disposition: Discharge to home or self care 08/17/[address] [place] [phone] Ashu Arevalo MD 08/09/[address] [address] Ashu Arevalo MD 08/08/2024 2:30 PM CDT Clinical Support [address] [place] [phone] Anemia of chronic renal failure, stage 4 (severe) (HCC) (Primary Dx) 08/08/2024 2:15 PM CDT Lab [address] [phone] Anemia of chronic renal failure, unspecified CKD stage (Primary Dx) 08/03/2024 Orders Only [facility] [place] [address] [place] [address] Vijay Truong MD 08/03/2024 Telephone [facility] [place] [address] [place] [address] Vijay Truong MD Medical Question/Miscellan eous from Last 3 Months Allergies No known active allergies Medications blood-glucose meter kit Use to test blood sugar once daily. 1 each 04/07/20 18 Active hydrOXYzine (VISTARIL) 50 mg capsuleIndications:T ype 2 diabetes mellitus with hyperglycemia, with long-term current use of insulin ([facility]) 0 23 Active lancets miscIndications:Type 2 diabetes mellitus with peripheral neuropathy ([facility]) 1 each by other route as directed Check fingerstick daily 100 each 1 11/18/19 23 Active bisacodyl EC (DULCOLAX EC) 5 mg EC tabletIndications:co nstipation Take 1 tablet (5 mg total) by mouth daily as needed for constipation E11.65 30 tablet 11 12/09/19 23 Active docusate sodium (COLACE) 100 mg capsuleIndications:c onstipation Take 1 capsule (100 mg total) by mouth 2 (two) times a day 30 capsule 11 12/09/19 23 Active furosemide (LASIX) 20 mg tablet Take 1/2 tablet daily. 15 tablet 3 12/09/19 23 Active blood glucose diagnostic (OneTouch Verio test strips) stripIndications:CKD stage 4 due to type 2 diabetes [...] pen needle, diabetic 31 gauge x 5/16 needleIndications:Ty pe 2 diabetes mellitus with moderate nonproliferative retinopathy of both eyes, without long-term current use of insulin, macular edema presence unspecified ([facility]) Use to inject once nightly. E11.65 100 each 4 02/17/[address] (PROTONIX) 40 mg EC tablet Take 1 tablet (40 mg total) by mouth daily 90 tablet 4 03/16/20 24 025 Active calcitRIOL (ROCALTROL) 0.25 mcg capsule Take 1 capsule (0.25 mcg total) by mouth 03/02/20 24 Active atorvastatin (LIPITOR) 40 mg tabletIndications:Dy slipidemia associated with type 2 diabetes mellitus (HCC) Take 1 tablet (40 mg total) by mouth daily 90 tablet 4 03/17/20 24 Active lisinopriL (PRINIVIL,ZESTRIL) 10 mg tabletIndications:Hy pertension associated with diabetes (HCC) Take 2 tablets (20 mg total) by mouth daily 180 tablet 3 03/17/20 24 Active insulin glargine 100 unit/mL (3 mL) pen for injectionIndications :Type 2 diabetes mellitus with hypoglycemia without coma, with long-term current use of insulin ([facility]) Inject 18 Units under the skin nightly E11.65 15 mL 11 04/27/20 24 Active aspirin 81 mg enteric coated tablet Take 1 tablet (81 mg total) by mouth daily 90 tablet 3 08/09/19 25 Active cephalexin (KEFLEX) 250 mg capsule Take 1 capsule (250 mg total) by mouth daily On hemodialysis days take after hemodialysis 10 capsule 08/19/19 25 Active traZODone (DESYREL) 100 mg tablet Take 1 tablet (100 mg total) by mouth nightly 90 tablet 4 08/19/[address] (CYMBALTA) 30 mg capsule Take 1 capsule (30 mg total) by mouth 2 (two) times a day 180 capsule 4 08/19/19 25 026 Active clopidogreL (PLAVIX) 75 mg tablet Take 1 tablet (75 mg total) by mouth daily 90 tablet 3 08/19/19 25 Active oxyCODONE (ROXICODONE) 5 mg immediate release tabletIndications:Pa in Take 1 tablet (5 mg total) by mouth every 6 (six) hours as needed for pain Active Active Problems Problem Noted Date Diagnosed Date Screening mammogram for breast cancer 09/15/2024 Assessment & Plan (09/15/2024 1:30 PM CDT): Mammogram ordered. Will plan accordingly once results are received. Lung nodule 03/17/2024 Assessment & Plan (03/17/2024 7:38 AM BELTING INSPECTOR): Stable. Following with pulmonology and will continue to do so. Hypertension associated with diabetes 03/17/2024 Assessment & Plan (09/15/2024 1:29 PM CDT): Well controlled on lisinopril. Will continue to monitor. Assessment & Plan (04/27/2024 1:21 PM BELTING INSPECTOR): This is a chronic condition which is not at goal on arrival. At goal after rest. Goal is less than 140/90 Continue lisinopril, Lasix Encouraged to monitor weight and B/P at home. Assessment & Plan (03/17/2024 7:39 AM BELTING INSPECTOR): Normotensive. Continue lisinopril. Will continue to monitor. Colon cancer screening 03/17/2024 Assessment & Plan (03/17/2024 7:39 AM BELTING INSPECTOR): Referral to GI for screening colonoscopy placed History of colonic polyps 03/17/2024 Encounter for screening colonoscopy 03/17/2024 Anemia of chronic renal failure, stage 4 (severe ) 03/07/2024 Assessment & Plan (09/15/2024 1:29 PM CDT): Renal function stable. Anemia improving. Continues following closely with Nephrology. Assessment & Plan (03/17/2024 7:36 AM BELTING INSPECTOR): Stable. Following with Nephrology and will continue [...] Lasix Assessment & Plan (04/06/2023 3:42 PM BELTING INSPECTOR): This is a chronic condition which is [...] atorvastatin. Assessment & Plan (06/19/2022 2:08 PM BELTING INSPECTOR): This is a chronic condition which is [...] goal <30 treated with lisinopril Personally reviewed [facility] GFR- 16. Follows with Dr. Baker for [...] 01/17/2022 Assessment & Plan (03/17/2024 7:36 AM BELTING INSPECTOR): Visit preventive in nature. We reviewed medications, [...] 21 Assessment & Plan (04/09/2021 5:57 PM BELTING INSPECTOR): Vaccine given in office today. Reviewed possible [...] cooking Assessment & Plan (05/16/2022 5:25 PM BELTING INSPECTOR): Weights stable. Working on diet and exercise, previously riding stationary bike. Assessment & Plan (01/17/2022 10:16 AM CDT): Discussed healthy diet and importance of regular physical activity. Assessment & Plan (10/13/2021 1:35 PM CDT): Congratulated patient on her efforts to improve diet. Discussed healthy diet and importance of regular physical activity. Assessment & Plan (07/11/2021 11:00 AM BELTING INSPECTOR): Discussed healthy diet and importance of regular physical activity. Assessment & Plan (04/09/2021 5:57 PM BELTING INSPECTOR): Discussed healthy diet and importance of regular [...] bedtime. Assessment & Plan (05/17/2020 1:10 PM BELTING INSPECTOR): Omeprazole refilled. Reviewed provocative foods to avoid: caffeine, citrus, ETOH, carbonated drinks, fried/fatty/fast foods & rich/creamy sauces. Reviewed diet/exercise recommendations: 20-30min physicaly activity daily at minimum. Reviewed med Ses & scheduling. Weight loss will help improve GERD sxs. Keep HOB elevated 30 degrees & not eat 2-3 hrs before bedtime. Regional lymph node metastasis present Assessment & Plan (05/17/2020 1:09 PM BELTING INSPECTOR): L axillary lymph node. Anxious re: new L breast ca dx. Anxious re: pending treatments. Discussed at length during appt. Copies of recent screening/diagnostic mamm & ultrasound of L breast given to mrs Perez. Discussed lymph node involvement. Referral placed to Dr James at [facility]. Aware that her office will call her to set up but number # incase call not rec'd. Referral printed for Mrs Perez to have address/phone #. Answered any/all questions. aware to call if further questions after she's left. Malignant neoplasm of centra l portion of left breast in female, estrogen receptor positive (CMS/HCC) 05/17/2020 Cancer Staging:Clinical stage from 05/09/2020:Stage IIA(cT2, cN1(f), cM0, G1, ER+, MS+, HER2-) - Signed by Rubén Miranda MD PhD on 07/27/2020 Pathologic stage from 07/02/2020:Stage IA(pT2, pN1a(sn), cM0, G1, ER+, MS+, HER2- ) - Signed by Rubén Miranda MD PhD on 07/27/2020 Assessment & Plan (01/17/2022 10:19 AM CDT): Assessment & Plan (04/09/2021 6:01 PM BELTING INSPECTOR): Follows with oncology, continues letrozone. To have [...] necessary. Assessment & Plan (05/17/2020 1:08 PM BELTING INSPECTOR): Anxious re: new L breast ca dx. Anxious re: pending treatments. Discussed at length during appt. Copies of recent screening/diagnostic mamm & ultrasound of L breast given to mrs Perez. Discussed lymph node involvement. Referral placed to Dr James at [facility]. Aware that her office will call her to set up but number # incase call not rec'd. Referral printed for Mrs Perez to have address/phone #. Answered any/all questions. aware to call if further questions after she's left. Dyslipidemia associated with type 2 diabetes mary green 02/08/2020 Assessment & Plan (09/15/2024 1:29 PM CDT): Stable on atorvastatin. Tolerating without side effects. Will continue. Assessment & Plan (04/27/2024 1:21 PM BELTING INSPECTOR): This is a chronic condition which is at goal . Goal is LDL less than 70 Continue atorvastatin Encouraged to eat healthy, include fresh fruits and vegetables daily and avoid eating fried foods more than once per week. Assessment & Plan (03/17/2024 7:36 AM BELTING INSPECTOR): Stable. Continue atorvastatin. Tolerating without side effects. Will continue to monitor. Assessment & Plan (01/13/2024 12:49 PM CDT): This is a chronic condition which is at goal . Goal is LDL less than 70 Continue atorvastatin Encouraged to eat healthy, include fresh fruits and vegetables daily and avoid eating fried foods more than once per week. Assessment & Plan (04/06/2023 3:43 PM BELTING INSPECTOR): This is a chronic condition which is [...] prescribed. Assessment & Plan (06/19/2022 2:10 PM BELTING INSPECTOR): This is a chronic condition which is not at goal of LDL less than 70 Continue atorvastatin Encouraged to eat healthy, include fresh fruits and vegetables daily and avoid eating fried foods more than once per week. Encouraged to take medications as prescribed. Assessment & Plan (05/16/2022 5:17 PM BELTING INSPECTOR): Continue current regimen. Assessment & Plan (01/17/2022 10:16 AM CDT): 01/10/22 TC 186 TRG 421 HDL 29 LDL 90 Continue current regimen, recommended fish oil supplementation and following low fat diet. Will repeat labs prior to next office visit. Assessment & Plan (10/13/2021 1:35 PM CDT): Continue atorvastatin daily. Assessment & Plan (07/11/2021 11:16 PM BELTING INSPECTOR): Reviewed previous lipid panel. Doing well on atorvastatin 40 mg daily, denies any medication side effects. Assessment & Plan (04/09/2021 6:00 PM BELTING INSPECTOR): Results for orders placed or performed in [...] & Plan (08/16/2020 11:24 AM CDT): 12/22/18 BM=765 HDL=43 XG=879 LDL=88 TC/HDL=4.74 07/04/19 TC=78 HDL=32 QS=923 ZUP=714 TC/HDL=10.3 11/07/19 HC=053 DL=27 TG=002 TYO=007 CALC TC/HDL=12.0 to lab 02/09/20 FI=021 HDL=38 AU=497 LDL=92 TC/HLD=5.0 The 10-year ASCVD risk score [...] flags. Assessment & Plan (05/17/2020 1:10 PM BELTING INSPECTOR): We will check labs and make adjustments [...] 10/25/21. Assessment & Plan (05/16/2022 5:23 PM BELTING INSPECTOR): Following with nephrology. Discussed importance of well controlled blood pressure and diabetes management. Assessment & Plan (01/17/2022 9:44 AM CDT): 09/18/20 GFR=17 11/08/20 GFR=26 02/14/21 GFR=22 10/01/21 GFR=27 01/10/22 GFR=20 Following with nephrology. Assessment & Plan (10/13/2021 1:41 PM CDT): 09/18/20 GFR=17 11/08/20 GFR=26 02/14/21 GFR=22 10/01/21 GFR=27 Scheduled with nephrology 10/25/21. Assessment & Plan (04/09/2021 5:59 PM BELTING INSPECTOR): 09/18/20 GFR=17 11/08/20 GFR=26 02/14/21 GFR=22 Updated [...] function. Assessment & Plan (05/17/2020 1:11 PM BELTING INSPECTOR): GFR 11/07/19=35 GFR 02/09/20=35. Has been stable. Will recheck today. Assessment & Plan (02/09/2020 9:31 AM CDT): 11/07/19 GFR=35. Labs ordered; will recheck today. Assessment & Plan (11/07/2019 9:59 AM CDT): CMP drawn 09/28/18 show GFR=27, BUN=45, creatinine=1.92 CMP ordered today. Will contact w/results once rec'd. Will also fax results to Dr Berger as requested by Mrs Perez. 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 Referral placed. Will start basal insulin 10 units nightly, reviewed medication administration, follow up in 3 months and bring copy of blood sugar log to next apt. Reviewed s/s of hypo/hypergylcemia. Assessment & Plan (04/09/2021 6:08 PM BELTING INSPECTOR): Lab Results Component Value Date HGBA1C 9.7 [...] month Assessment & Plan (05/17/2020 1:09 PM BELTING INSPECTOR): Lab Results Component Value Date HGBA1C 9.6 [...] evaluation. Last eye exam december 2018 at [facility]. Letter sent to get copy of [...] 04/09/2021 Assessment & Plan (04/27/2024 1:21 PM BELTING INSPECTOR): This is a chronic condition which is [...] lisinopril. Assessment & Plan (03/17/2024 7:35 AM BELTING INSPECTOR): Improving. Continue following with endocrinology. Red flags reviewed. Hypertensive disorder 07/04/2019 Overview (05/19/2023): Last Assessment & Plan: Stable; continue current medication regimen. Assessment & Plan (04/06/2023 3:43 PM BELTING INSPECTOR): This is a chronic condition which is [...] prescribed. Assessment & Plan (06/19/2022 2:09 PM BELTING INSPECTOR): This is a chronic condition which is at goal of less than 140/90 Hypotension 94/48 Personally reviewed labs. Decrease lisinopril to 10 mg p.o. daily Encouraged to take medications as prescribed. Assessment & Plan (05/16/2022 5:23 PM BELTING INSPECTOR): Blood pressure well controled today. No changes in current regimen. Assessment & Plan (01/17/2022 10:14 AM CDT): Condition is stable Discussed/ordered labs, encouraged healthy, low carbohydrate lifestyle and at least 150min/week of exercise, continue on lisinopril 20 mg daily. BP checked by myself 118/80 Assessment & Plan (10/13/2021 1:41 PM CDT): Stable; continue current medication regimen. Assessment & Plan (07/11/2021 11:17 PM BELTING INSPECTOR): BP well controlled today. No changes in current medication regimen. Assessment & Plan (04/09/2021 6:10 PM BELTING INSPECTOR): Patient encouraged to take BP medication as [...] received. Assessment & Plan (05/17/2020 1:09 PM BELTING INSPECTOR): Does not check BP at home. The [...] (09/29/2018): Added automatically from request for surgery [id number] Fibromyalgia 01/01/2017 Assessment & Plan (03/17/2024 7:36 AM BELTING INSPECTOR): Stable on duloxetine. No changes. Will continue to monitor. Primary osteoarthritis involving multiple joints 01/01/2017 Major depressive disorder 01/01/2017 Assessment & Plan (07/11/2021 11:04 AM BELTING INSPECTOR): Managed by Dr. Berger at [facility], following up every 3 months. Continues seeing therapist once monthly. Discussed increasing frequency of counseling to once weekly if able. PHQ today 21. Discussed importance of regular exercise/ healthy diet and general healthy lifestyle to improve moods. Lives at home with son and two grandsons. Reports supportive family. Denies any SI/HI. Assessment & Plan (04/09/2021 10:47 AM BELTING INSPECTOR): PHQ=19 (worsening with breast CA diagnosis) Hydroxyzine 25mg q6hr prn, risperidone 2mg nightly, trazodone 100mg nightly, duloxetine DR 60mg daily, amitriptyline 25mg nightly. Managed by Dr Berger at [facility]. Sees him q3mos. Also sees therapist Kay at [facility]. Denies suicidal/homicidal ideation. Assessment & Plan (08/16/2020 11:22 AM CDT): Hydroxyzine 25mg q6hr prn, risperidone 2mg nightly, trazodone 100mg nightly, duloxetine DR 60mg daily, amitriptyline 25mg nightly. Managed by Dr Berger at [facility]. Doing phone visits with him q3mos. Also with therapist Kay at [facility]. Reports good control of depression w/current regimen. No changes to be made at this time. Reviewed med Ses & scheduling. Reviewed red flags. Assessment & Plan (02/09/2020 9:30 AM CDT): Following w/Dr Berger at [facility] every 3 months. following w/monthly therapy appts w/Mellisa Davidson at [facility]. Verified current medications. Will fax lab results to Dr Berger at [facility] once completed. Reports good control of depression w/current regimen. No changes to be made at this time. Reviewed med Ses & scheduling. Reviewed red flags. Assessment & Plan (11/07/2019 10:00 AM CDT): Followed by Dr Berger at [facility]. Reports good control of depression w/current regimen. No changes to be made at this time. Reviewed med Ses & scheduling. Reviewed red flags. Resolved Problems Problem Noted Date Diagnosed Date Resolved Date BMI 27.0-27.9,adult 02/09/2020 08/17/19 21 Assessment & Plan (05/17/2020 1:11 PM BELTING INSPECTOR): Discussed healthy diet and importance of regular [...] healthier, we can set up appointment with body make up artist/beam builder. 3. Have an active lifestyle, strive for [...] & Plan (11/07/2019 10:01 AM CDT): 12/22/18 OD=139 HDL=43 JM=490 LDL=88 TC/HDL=4.74 07/04/19 TC=78 HDL=32 ER=704 RPH=673 TC/HDL=10.3 11/07/19 CT=293 DL=27 FF=442 ZDS=502 CALC TC/HDL=12.0 Copy of today's lipid panel given to mrs Perez. Will have tests verified/repeated at lab today. Aware that atorvastatin will need increased if lipid panel elevated. Immunizations Immunization Administration Dates Next Due COVID-19 mRNA ([place]) 0.3 m L (30 mcg) vaccine (12 [...] Trivalent, IM (MDV) 02/12/2014 Influenza, Unspecified 02/01/2023,2018,02/17/2019,02/08,02/08/2017 [email or web address] ([employer]) SARS-CoV-2 Vaccination 09/19/2020, 09/17/2020,09/17/2020 Pneumococcal Conjugate PCV 13 02/12/2016, 013 Pneumococcal Conjugate Pcv20 09/12/2022 Pneumococcal Polysaccharide PPV23 12/20/2012 Tdap 07/30/2024,07/11/2021 ZOSTER Recombinant 07/13/2020,05/01/2020, 020 Social History Tobacco [...] How often do you attend chur or buddhist services? More than 4 times per year 06/26/2022 Do you belong to any clubs o r organizations such as yarsanism groups, unions, fraternal or athletic groups, or school groups? Yes 06/26/2022 How often do you attend meet ings of the clubs or organizations you belong to? Never 06/26/2022 Are you , , di vorced, , never , or living with a partner? 06/26/2022 AUDIT-C Answer Date Recorded Q1: How often do you have a drink containing alcohol? Never 08/23/2024 Q2: How many drinks containi ng alcohol do you have on a typical day when you are drinking? Patient does not drink Q3: How often do you have si x or more drinks on one occasion? Never 08/23/2024 Overall Financial Resource Strain (CARDIA) Answe r [...] place to sleep or slept in a retirement (including now)? No 06/26/2022 Personal Safety Answer Date Recorded Have you ever been in or are you currently in a harmful physical or emotional relationship or is someone making you feel afraid or unsafe? Denies 08/24/2024 Education Answer Date Recorded What is the highest level of school you have completed or the highest degree you have received? GED or equivalent 03/2023 Comments No Sex and Gender Information Value Date Recorded Sex Assigned at Not on file Legal Sex Female 12:56 PM BELTING INSPECTOR Gender Identity Not on file Sexual Orientation Not on file Last Filed Vital Signs Vital Sign Reading Time Taken Comments Blood Pressure 136/78 09/15/2024 12:03 PM CDT Pulse 60 09/15/2024 12:03 PM CDT Temperature 36.2 C (97.2 F) 09/15/2024 12:03 PM CDT Respiratory Rate 24 09/15/2024 12:03 PM CDT Oxygen Saturation 99% 09/15/2024 12:03 PM CDT Inhaled Oxygen Concentration - - Weight 67 kg (147 lb 12.8 oz) 09/15/2024 12:03 P M CDT Height 167.6 cm (5' 5.98) 09/15/2024 12:03 PM C DT Body Mass Index 23.87 09/15/2024 12:03 PM CDT Plan of Treatment Not on file Medical Devices Implanted Type Area Lathe Spotter Device Identifier Shelf Expiration Date Model / Serial / Lot Bard Peripheral Vascular [id number] Ultraclip Bard 17ga 12cm 2 Trigger Permanent Ultrasound - [id number] - [id number] Implanted:Qty: 1 on 05/09/2020 by Oc Amin MD at [facility] Breast Left: Breast Bard Peripheral V[employer] 11/05/2022 [id number] / [id number] / Bard Peripheral Vascular [id number] Ultraclip Bard 17ga 10cm 2 Trigger Permanent Ultrasound - [id number] - [id number] Implanted:Qty: 1 on 05/09/2020 by Oc Amin MD at [facility] Breast Left: Breast Bard Peripheral Vascular 12/05/2022 [id number] / [id number] / Procedures Procedure Name Priority Date/Time Associated Diagnosis Comments EGFR Routine 09/12/2024 9:00 AM CDT Dyslipidemia associated with type 2 diabetes mellitus (HCC) Hypertension associated with diabetes (HCC) DIFFERENTIAL AUTO Routine 09/12/2024 9:0 0 AM CDT Dyslipidemia associated with type 2 diabetes mellitus (HCC) Hypertension associated with diabetes (HCC) CBC WITH AUTO DIFFERENTIAL Routine 09/12/2024 9:00 AM CDT Dyslipidemia associated with type 2 diabetes mellitus (HCC) Hypertension associated with diabetes (HCC) COMPREHENSIVE METABOLIC PANEL Routine 09/12/2024 9:00 AM CDT Dyslipidemia associated with type 2 diabetes mellitus (HCC) Hypertension associated with diabetes (HCC) LIPID PANEL Routine 09/12/2024 9:00 AM CDT Dyslipidemia associated with type 2 diabetes mellitus (HCC) Hypertension associated with diabetes (HCC) SURGICAL PATHOLOGY STAT 08/24/2024 2: 16 PM CDT History of colonic polyps Encounter for screening colonoscopy POCT GLUCOSE DEVICE Routine 08/24/2024 8 :03 AM CDT POCT GLUCOSE DEVICE Routine 08/24/2024 7 :18 AM CDT COLONOSCOPY 08/24/2024 7:16 AM CDT HM DIABETES EYE EXAM Routine 08/19/2024 8:56 AM CDT DIFFERENTIAL AUTO Routine 08/08/2024 1:5 5 PM CDT Anemia of chronic renal failure, stage 4 (severe) (HCC) CBC WITH AUTO DIFFERENTIAL Routine 08/08/2024 1:55 PM CDT Anemia of chronic renal failure, stage 4 (severe) (HCC) POCT HEMOGLOBIN A1C Routine 04/27/2024 1 :05 PM BELTING INSPECTOR Type 2 diabetes mellitus with hypoglycemia without coma, with long-term current use of insulin (HCC) ALBUMIN CREATININE RATIO, URINE Routine 02/23/2024 12:10 PM CDT DEXA AXIAL SKELETON BONE DENSITY 1 OR MORE SITES Schedule Routine, Read Routine (OP Routine) 04/03/2023 12:42 PM BELTING INSPECTOR At high risk for osteoporosis Age-related osteoporosis without current pathological fracture SCREENING MAMMOGRAM RIGHT W [place] UNILATERAL ONLY Schedule Routine, Read Routine (OP Routine) 03/28/2022 2:03 PM BELTING INSPECTOR Personal history of breast cancer Encounter for screening mammogram for malignant neoplasm of breast SERUM HEPATITIS C AB Routine 01/29/2015 11:36 AM CDT from Last 3 Months or Most Recently Relevant to Health Maintenance Results * (ABNORMAL) eGFR (09/12/2024 9:00 AM CDT) eGFR 15(L) >=60 mL/min/1. 73 m2 Comment: Interpretive Data [...] interpretive data was last reviewed 2021. Blood 09/12/2024 9:00 AM CDT 09/12/2024 9:45 AM CDT us Nidia Rojas NP LAB BLOOD ORDERABLES Final Result [facility]IN ESTRADA [place]) 1 [facility] [place] [address] * Differential, auto (09/12/2024 9:00 AM CDT) Neutrophil abs 6.04 1.50 - 6.50 K/cumm Imm gran abs 0.02 0.00 - 0.10 K/cumm [facility] ([facility]) Lymphocyte abs 1.58 0.80 - 3.30 K/cumm [facility] ([place]) Monocyte abs 0.50 0.20 - 0.80 K/cumm [facility] ([place]) Eosinophil abs 0.09 0.00 - 0.50 K/cumm [facility] ([place]) Basophil abs 0.04 0.00 - 0.10 K/cumm [facility] ([place]) Neutrophil pct 73.1 % [facility] ([place]) Comment: Interpretive [...] was last revised on 2017. Lymphocyte pct 19.1 % [facility] ([place]) Comment: Interpretive Data Percent cell count reference ranges are not reported, since discordance with absolute values may lead to misinterpretation of CBC data. Current Interpretive Data was last revised on 2017. Monocyte pct 6.0 % [facility] ([place]) Comment: Interpretive Data Percent cell count reference ranges are not reported, since discordance with absolute values may lead to misinterpretation of CBC data. Current Interpretive Data was last revised on 2017. Eosinophil pct 1.1 % [facility] ([place]) Comment: Interpretive [...] Data was last revised on 2017. Blood 09/12/2024 9:00 AM CDT 09/12/2024 9:45 AM CDT us Nidia W. Rojas ADOBE DEVELOPER LAB BLOOD ORDERABLES Final Result [facility] ([place]) 1 [facility] [place] [address] * (ABNORMAL) CBC with auto differential (09/12/2024 9:00 AM CDT) WBC 8.27 3.80 - 9.90 K/cumm Hgb 9.4(L) 11.9 - 15.5 g/dL [facility] ([place]) Hct 28.6(L) 35.6 - 45.5 % [facility] ([place]) Plt 389 150 - 400 K/cumm [facility] ([place]) MPV 9.3 9.1 - 12.3 fL [facility] ([place]) RBC 3.31(L) 3.90 - 5.20 M/cumm [facility] ([place]) MCV 86.4 81.3 - 96.4 fL [facility] ([place]) MCH 28.4 27.1 - 33.3 pg [facility] ([place]) MCHC 32.9 32.3 - 35.7 g/dL [facility] ([place]) RDW CV 17.8(H) 11.1 - 14.9 % [facility] ([place]) RDW SD 56.5(H) 35.7 - 48.1 fL [facility] ([place]) NRBC abs 0.00 0.00 - 0.01 K/cumm [facility] ([place]) Blood 09/12/2024 9:00 AM CDT 09/12/2024 9:45 AM CDT Nidia Rojas NP LAB BLOOD ORDERABLES Final Result [facility] E[facility]ADA ([place]) 1 [facility] [place] [address] * Lipid panel (09/12/2024 9:00 AM CDT) Cholesterol 180 30 - 199 mg/dL Comment: Interpretive Data [...] Data was last revised on 2017. Triglycerides 134 <=149 mg/dL [facility]) Comment: Interpretive Data Ages < or = [...] Data was last revised on 2017. HDL 54 >=40 mg/dL [facility]) Comment: Interpretive Data Ages < or = [...] was last revised on 2017. LDL, calculated 102 <=129 mg/dL [facility]) Comment: Interpretive Data Ages < or = 19 years Acceptable: <110 mg/dL Borderline high: 110-129 mg/dL High: >or= 130 mg/dL Ages > or = 20 years Optimal: <100 mg/dL Near optimal: 100-129 mg/dL Borderline high: 130-159 mg/dL High: >160 mg/dL Calculated using the Hernández LDL-C estimating equation. This equation was implemented on 2023. Prior to this date LDL-C was estimated using the Friedewald equation. Literature References: 1. Expert Panel on Integrated Guidelines for Cardiovascular Health and Risk Reduction in Children and Adolescents. Pediatrics 2011;128:S213 2. NCEP Expert Panel. Circulation 2004;110:227 3. Edgar Yusuf et al. JONO Cardiol. 2019September 08;5(5):540-548. doi: 10.1001/jamacardio.2020.0013 Current Interpretive Data was last revised on 2023. Non-HDL Cholesterol 126 mg/dL [facility] ([place]) Comment: Interpretive Data [...] last revised on 2017. Chol/HDL ratio 3 SONJANE R NATALIE ([place]) Blood 09/12/2024 9:00 AM CDT 09/12/2024 9:45 AM CDT Nidia Rojas NP LAB BLOOD ORDERABLES Final Result OSMIN NATALIE ([place]) 1 [facility] [place] [address] * (ABNORMAL) Comprehensive metabolic panel (09/12/2024 9:00 AM CDT) Sodium 137 135 - 145 mmol/L Potassium, pl 4.9 3.3 - 4.9 mmol/L [facility] ([place]) Chloride 103 97 - 110 mmol/L [facility] ([place]) CO2 21(L) 22 - 32 mmol/L [facility] ([place]) Anion gap 13 2 - 15 mmol/L [facility] ([place]) BUN 65(H) 6 - 25 mg/dL [facility] ([place]) Creatinine 3.33(H) 0.60 - 1.10 mg/dL [facility] ([place]) Glucose 79 70 - 199 mg/dL [facility] ([place]) [...] interpretive data was last revised 2022. Calcium 9.1 8.5 - 10.3 mg/dL [facility] ([place]) Bilirubin, total <0.2 0.1 - 1.2 mg/dL [facility] ([place]) Protein, pl 6.9 6.5 - 8.5 g/dL [facility] ([place]) Albumin 3.4(L) 3.5 - 5.0 g/dL [facility] ([place]) Alk phos 106 40 - 130 Units/L [facility] ([place]) ALT 13 7 - 45 Units/L [facility] ([place]) AST 22 10 - 45 Units/L [facility] ([place]) Blood 09/12/2024 9:00 AM CDT 09/12/2024 9:45 AM CDT us Nidia Rojas NP LAB BLOOD ORDERABLES Final Result [facility] ([place]) 1 [facility] Department of Laboratories [place], [place] [id number] * Surgical pathology (08/24/2024 2:16 PM CDT) Tissue (Polyp(s), colon/colorectal, esophageal, gastric) 08/24/2024 8:16 AM CDT Tissue specimen (specimen) (Polyp(s), colon/colorectal, esophageal, gastric) 08/24/2024 8:21 AM CDT Narrative PATHOLOGY [facility] ([place]) - 08/26/2024 8:44 AM CDT EPIC results best viewed via link to PDF [facility] Department of Pathology [address] [place] [id number] Note to Patients: This report may contain a detailed description of human tissue sent by a health care provider to the laboratory for pathologic evaluation. The content of this report is essential for diagnosis and may provide important critical findings. This information may be unfamiliar to patients to review without a medical professional present. It is advised that the patient review this report in the presence of a health care provider who can answer questions and explain the details. Final Report Patient Name: DANA PEREZ Address: [address] [place] [address]- Gender: F : 1955 (Age: 68) Service: Gastro Location: [facility] Hospital #: [id number] Patient Type: [facility] Taken: 08/24/2024 Received: 08/24/2024 Accessioned: 08/24/2024 Reported: 08/26/2024 Physician(s):Rajwinder FernandezO. Diagnosis: A. Colon, ascending, biopsy: - Tubular adenoma. - No evidence of high-grade dysplasia or malignancy. B. Colon, sigmoid, biopsy: - Tubular adenoma. - No evidence of high-grade dysplasia or malignancy. Oc Bahena MD Report Electronically Reviewed and Signed Out By Oc Bahena MD 08/26/2024 08:44:49 Specimen(s) Received: A: Ascending polyp x 1 B: Sigmoid colon polyp x 1 Microscopic Description: A. Microscopic examination shows a polypoid fragment of colonic mucosa with adenomatous mucosal changes consistent with a tubular adenoma. There is no evidence of high-grade dysplasia or malignancy. B. Microscopic examination of routine and deeper levels shows a polypoid fragment of colonic mucosa with adenomatous mucosal changes (best appreciated on the deeper levels) consistent with a tubular adenoma. There is no evidence of high-grade dysplasia or malignancy. Intradepartmental consultation: This specimen was also reviewed by Dr. Vides, who concurs with the above findings. Clinical History: History of colonic polyps. Screening colonoscopy. Gross Description: The specimen is submitted in two formalin containers labeled DANA PEREZ. A. The first container is labeled ascending polyp x1. It is one martinez tissue fragment measuring 2 mm. All in A. B. The second container is labeled sigmoid colon polyp x1. It is 1 martinez tissue fragment measuring 6 mm. All in B. T.A. Ki Loev P.A./Camelia Stallings M.D. REPORT IMAGES AND SCANNED DOCUMENTS, IF INCLUDED, ONLY VIEWABLE IN PDF VERSION OF REPORT The performance characteristics of some immunohistochemical stains, fluorescence in-situ hybridization tests and immunophenotyping by flow cytometry cited in this report (if any) were determined by the Surgical Pathology Department at [facility] as part of an ongoing quality assurance practice manager program and in compliance with federally mandated regulations drawn from the Clinical Laboratory Improvement Act of 1988 (CLIA '88). Some of these tests rely on the use of analyte specific reagents and are subject to specific labeling requirements by the US Food and Drug Administration. Such diagnostic tests may only be performed in a facility that is certified by the Department of Health and Human Services as a high complexity laboratory under CLIA '88. The FDA has determined that such clearance or approval is not necessary. This test is used for clinical purposes. It should not be regarded as investigational or for research. Nevertheless, federal rules concerning the medical use of analyte specific reagents require that the following disclaimer be attached to the report: This test was developed and its performance characteristics determined by the Surgical Pathology Department [facility]. It has not been cleared or approved by the U. S. Food and Drug Administration. Note for decalcified specimens: This assay has not been validated on decalcified tissues. Results should be interpreted with caution given the possibility of false negativity on decalcified specimens us Nathan Brooks DO LAB PATHOLOGY ORDERABLES Final Result PATHOLOGY [facility] ([place]) 1 [place], [place] [id number] * POCT glucose (08/24/2024 8:03 AM CDT) Glucose, POC 119 70 - 199 mg/dL Blood 08/24/2024 8:03 AM CDT 08/24/2024 8:03 AM CDT us Nathan Brooks DO LAB POCT ORDERABLES - DEVICE F inal Result Performing Organization Address City/[facility]/ZIP Co de Phone Number OSMIN ESTRADA ([place]) 1 [place] [address] * (ABNORMAL) POCT glucose (08/24/2024 7:18 AM CDT) [facility] Signature Glucose, POC 60(L) 70 - 199 mg/dL Blood 08/24/2024 7:18 AM CDT 08/24/2024 7:18 AM CDT us Nathan Brooks DO LAB POCT ORDERABLES - DEVICE F inal Result Performing Organization Address [facility] de Phone Number OSMIN ESTRADA ([place]) [address] [place] [address] * Colonoscopy (08/24/2024 7:16 AM CDT) Anatomical Region Laterality Modality Other Narrative Procedure Note Nathan Brooks, DO - 08/24/2024 7:16 AM CDT [facility] Patient Name: Dana Perez Procedure Date: 08/24/2024 7:16 AM Date of : 1955 Admit Type: Outpatient Age: 68 Gender: Female Attending MD: Nathan Brooks D.O. Room: [facility] ENDOSCOPY ROOM 3 Note Status: Finalized Patient Profile: Refer to note in patient chart for documentation of history and physical. Procedure: Colonoscopy Indications: High risk colon cancer surveillance: Personalhistory of colonic polyps, Last colonoscopy: October 2018 Referring MD: Vijay Truong M.D. Providers: Nathan Brooks D.O. Impression: - The examined portion of the ileum was normal. - One 2 mm polyp in the ascending colon, removedwith a jumbo cold forceps. Resected and retrieved. - Diverticulosis in the sigmoid colon and in theright colon. - One 2 mm polyp in the sigmoid colon, removed witha jumbo cold forceps. Resected and retrieved. Recommendation: - Discharge patient to home. - Resume previous diet. - Continue present medications. - Await pathology results. - Repeat colonoscopy in 5 years for surveillance. - Return to primary care physician PRN. Call 2 weeks for biopsy report. Benefiber or Metamucil 1 tbsp in a large glass of water. Follow immediately with the 2nd glass ofwater. Florastor Candescent Healing per labelinstructions. MiraLax 1 capful 1-2 times per day as needed for constipation. Medicines: Monitored Anesthesia Care Complications: No immediate complications. Estimated Blood Loss: Estimated blood loss was minimal. Procedure: Pre-Anesthesia Assessment: - As per anesthesia. The benefits, risks and alternatives of theprocedure and sedation were discussed and informed consentwas obtained. All questions were answered. Please referto the signed informed consent document in the medical record. The bowel preparation used was Miralax and bisacodyl tablets via split dose instruction. The scope was passed under direct vision. The Pediatric Colonoscope [id number] was introduced through the anus and advanced to the 5 cm into the ileum. The colonoscopy was performed without difficulty. The patient tolerated the procedurewell. The quality of the bowel preparation was good. The terminal ileum, ileocecal valve, appendicealorifice, and rectum were photographed. Findings: The perianal and digital rectal examinations were normal. The terminal ileum appeared normal. A 2 mm polyp was found in the ascending colon. The polyp was removed with a jumbo cold forceps. Resection and retrieval were complete. A few diverticula were found in the sigmoid colon and right colon. A 2 mm polyp was found in the sigmoid colon. The polyp was removedwith a jumbo cold forceps. Resection and retrieval were complete. No additional abnormalities were found on retroflexion. Electronically signed by Nathan Brooks M.D. Nathan Brooks D.O. 08/24/2024 8:26:15 AM Number of Addenda: 0 Note Initiated On: 08/24/2024 7:16 AM Procedure Code(s): --- Professional --- 13324, Colonoscopy, flexible; with biopsy, single or multiple --- Technical --- 28205, Colonoscopy, flexible; with biopsy, single or multiple Diagnosis Code(s): --- Professional --- Z86.010, Personal history of colonic polyps D12.5, Benign neoplasm of sigmoid colon D12.2, Benign neoplasm of ascending colon K57.30, Diverticulosis of large intestine without perforation orabscess without bleeding --- Technical --- Z86.010, Personal history of colonic polyps D12.5, Benign neoplasm of sigmoid colon D12.2, Benign neoplasm of ascending colon K57.30, Diverticulosis of large intestine without perforation orabscess without bleeding CPT copyright 2020 [employer]. All rights reserved. The codes documented in this report are preliminary and upon county judge reviewmay be revised to meet current compliance requirements. Recognized by the [employer] for promoting quality in endoscopy us Nathan Brooks DO ENDOSCOPY PROCEDURES Final Res ult * HM DIABETES EYE EXAM (08/19/2024 8:56 AM CDT) us Historical Provider [facility] Edited Result - Final * Differential, auto (08/08/2024 1:55 PM CDT) Neutrophil abs 5.8 1.5 - 6.5 K/cumm Comment:Testing performed by : [facility] [address], Medical Office [facility] [address], [place] [address] Imm gran abs 0.0 0.0 - 0.1 K/cumm [facility] ([facility]) Comment:Testing performed by : [facility] [address], Medical Office [facility] [address], [place] [address] Lymphocyte abs 0.9 0.8 - 3.3 K/cumm [facility] ([place]) Comment:Testing performed by : [facility] [address], Medical Office [facility] B [facility] [address], [place] [address] Monocyte abs 0.4 0.2 - 0.8 K/cumm [facility] ([place]) Comment:Testing performed by : [facility] [address], Medical Office [facility] B [facility] [address], [place] [address] Eosinophil abs 0.1 0.0 - 0.5 K/cumm [facility] ([place]) Comment:Testing performed by : [facility] [address], Medical Office [facility] [address], [place] [address] Basophil abs 0.1 0.0 - 0.1 K/cumm [facility] ([place]) Comment:Testing performed by : [facility] [address], Medical Office [facility] [address], [place] [address] Neutrophil pct 79.7 % [facility] ([place]) Comment: Interpretive Data Percent cell count reference ranges are not reported, since discordance with absolute values may lead to misinterpretation of CBC data. Current Interpretive Data was last revised on 2022. Testing performed by: [facility] [address], Medical Office [facility] [address], [place] [address] Imm gran pct 0.3 % [facility] ([place]) Comment: Interpretive Data Percent cell count reference ranges are not reported, since discordance with absolute values may lead to misinterpretation of CBC data. Current Interpretive Data was last revised on 2022. Testing performed by: [facility] [address], Medical Office [facility] B [facility] [address], [place] [address] Lymphocyte pct 12.9 % [facility] ([place]) Comment: Interpretive Data Percent cell count reference ranges are not reported, since discordance with absolute values may lead to misinterpretation of CBC data. Current Interpretive Data was last revised on 2022. Testing performed by: [facility] [address], Medical Office [facility] [address], [place] [address] Monocyte pct 5.4 % [facility] ([place]) Comment: Interpretive Data Percent cell count reference ranges are not reported, since discordance with absolute values may lead to misinterpretation of CBC data. Current Interpretive Data was last revised on 2022. Testing performed by: [facility] [address], Medical Office [facility] B [facility] [address], [place] [address] Eosinophil pct 1.0 % [facility] ([facility]) Comment: Interpretive Data Percent cell count reference ranges are not reported, since discordance with absolute values may lead to misinterpretation of CBC data. Current Interpretive Data was last revised on 2022. Testing performed by: [facility] [address], Medical Office [facility] B [facility] [address], [place] [address] Basophil pct 0.7 % [facility] ([place]) Comment: Interpretive Data Percent cell count reference ranges are not reported, since discordance with absolute values may lead to misinterpretation of CBC data. Current Interpretive Data was last revised on 2022. Testing performed by: [facility] [address], Medical Office [facility] B [facility] [address], [place] [address] Blood 08/08/2024 1:55 PM CDT 08/08/2024 2:00 PM CDT us Ashu Arevalo MD LAB BLOOD ORDERABLES Fin al Result OSMIN ESTRADA ([place]) 1 [facility] [place] [address] * (ABNORMAL) CBC with auto differential (08/08/2024 1:55 PM CDT) [facility] WBC 7.3 3.8 - 9.9 K/cumm Comment:Testing performed by : [facility] [address], Medical Office [address], [place] [address] Hgb 9.1(L) 11.9 - 15.5 g/dL [facility] ([place]) Comment:Testing performed by : [facility] [address], Medical Office [facility] [address], [place] [address] Hct 28.7(L) 35.6 - 45.5 % [facility] ([place]) Comment:Testing performed by : [facility] [address], Medical Office [facility] [address], [place] [address] Plt 315 150 - 400 K/cumm [facility] ([place]) Comment:Testing performed by : [facility] [address], Medical Office [facility] [address], [place] [address] MPV 9.2 9.1 - 12.3 fL [facility] ([place]) Comment:Testing performed by : [facility] [address], Medical Office [facility] [address], [place] [address] RBC 3.38(L) 3.90 - 5.20 M/cumm [facility] ([place]) Comment:Testing performed by : [facility] [address], Medical Office [address], [place] [address] MCV 84.9 81.3 - 96.4 fL [facility] ([place]) Comment:Testing performed by : [facility] [address], Medical Office [facility] [address], [place] [address] MCH 26.9(L) 27.1 - 33.3 pg [facility] ([place]) Comment:Testing performed by : [facility] [address], Medical Office [address], [place] [address] MCHC 31.7(L) 32.3 - 35.7 g/dL [facility] ([place]) Comment:Testing performed by : [facility] [address], Medical Office Bld[address], [place] [address] RDW CV 18.3(H) 11.1 - 14.9 % OSMIN ESTRADA ([place]) Comment:Testing performed by : [facility] [address], Medical Office [address], [place] [address] RDW SD 58.1(H) 35.7 - 48.1 fL OSMIN ESTRADA ([place]) Comment:Testing performed by : [facility] [address], Medical Office [facility] [address], [place] [address] NRBC abs Not Measured 0.00 - 0.01 K/cumm OSMIN ESTRADA ([place]) Comment:Testing performed by : [facility] [address], Medical Office [facility] [address], [place] [address] Blood 08/08/2024 1:55 PM CDT 08/08/2024 2:00 PM CDT us Ashu Arevalo MD LAB BLOOD ORDERABLES Fin al Result OSMIN ESTRADA ([place]) 1 [facility] [place] [address] * POCT hemoglobin A1c (04/27/2024 1:05 PM BELTING INSPECTOR) Pathologist [facility] Hemoglobin A1C, POC 5.9 4.0 - 5.6 % Blood 04/27/2024 1:05 PM BELTING INSPECTOR us Inna Tsang NP POINT OF CARE TEST ORDERABLES F inal Result * (ABNORMAL) Albumin Creatinine Ratio, Urine (02/23/2024 12:10 PM CDT) Albumin Ur 1,424.9 mg/L Comment: Interpretive Data No reference range established. Current interpretive data was last revised 2018. Testing performed by: [facility], [address] [place] [address], [place]., [address] Creatinine Ur 128.1 mg/dL OSMIN ESTRADA ([place]) Comment: Interpretive Data No reference range established. Current interpretive data was last revised 2018. Testing performed by: [facility], [address] [place] [address], [place]., [address] Albumin Creatinine Ratio, Ur 1,112(H) 1 - 29 mg/g OSMIN ESTRADA ([place]) Comment:Testing performed by : [facility], [id number] [place] [address], [place]., [address] Urine 02/23/2024 12:1 0 PM CDT 02/23/2024 9:33 PM CDT us Ashu Arevalo MD LAB URINE ORDERABLES Fin al Result OSMIN ESTRADA ([place]) 1 [facility] [place] [address] * Dexa Axial Skeleton Bone Density 1 or 2 Site (04/03/2023 12:42 PM BELTING INSPECTOR) Anatomical Region Laterality Modality Body N/A Other 04/03/2023 1:05 PM BELTING INSPECTOR Narrative 04/03/2023 1:05 PM BELTING INSPECTOR EXAM DESCRIPTION: DEXA AXIAL SKELETON BONE DENSITY 1 OR MORE SITES REASON FOR STUDY: 67 y/o year old F with given history of: history of AI therapy Osteoporosis screening Post menopausal Lathe Spotter/Model: [employer] Discovery SL ([id number]/N [id number]) CLINICAL INFORMATION: Current height: 65 inches Maximum [...] Vini Kaur M.D. MF: TOBIN Report ID: [id number] Reading Location: [place] [address] Procedure Note Vini Kaur MD - 04/03/2023 EXAM DESCRIPTION: DEXA AXIAL SKELETON BONE DENSITY 1 OR MORE SITES REASON FOR STUDY: 67 y/o year old F with given history of: history ofAI therapy Osteoporosis screening Post menopausal Lathe Spotter/Model: [employer] SL (S/N [id number]) CLINICAL INFORMATION: Current height: 65 inches Maximum [...] Vini Kaur M.D. MF: TOBIN Report ID: [id number] Reading Location: [id number] Shaniqua Ellison NP IMG DXA PROCEDURES Fi nal Result * Screening Mammogram Right W Wesley Unilateral Only (03/28/2022 2:03 PM BELTING INSPECTOR) Anatomical Region Laterality Modality Breast Right Mammography Narrative 03/28/2022 3:58 PM BELTING INSPECTOR Mammogram Technique: Right Breast Digital Breast Tomosynthesis, Unilateral C-view 2D Screening mammogram. Views obtained: bilateral craniocaudal and bilateral mediolateral oblique. Computer Aided Detection was performed. Mammogram Findings: The present examination has been compared to prior imaging studies performed on 02/16/2020, at [facility]. [facility] on 04/17/2020 and 05/09/2020, and at [facility] on 03/22/2021. The breast is heterogeneously [...] prior imaging studies performed on 02/16/2020, at [facility]. [facility] on 04/17/2020 and 05/09/2020, and at [facility] on 03/22/2021. The breast is heterogeneously [...] IMG MAMMO PROCEDURES Fi nal Result * Serum Hepatitis C ab (01/29/2015 11:36 AM CDT) HCV ab Negative Negative HISTORICAL RESULTS Serum 01/29/2015 11:3 6 AM CDT Rubina Prasad MD LAB BLOOD ORDERABLES Final Resul t HISTORICAL RESULTS from Last 3 Months or Most Recently Relevant to Health Maintenance Insurance [facility] UHC MEDICARE ADVANTAGE MEDICARE ADVANTAGE MEDICARE ADVANTAGE IDPA Advance Directives For more information, please contact: [phone] * Full Code (Latest Code Status on File) Date Activated Date Inactivated Comments 08/24/2024 6:48 AM 08/24/2024 1:11 PM * Full Code Date Activated Date Inactivated Comments 08/24/2024 6:48 AM 08/24/2024 6:48 AM * Full Code Date Activated Date Inactivated Comments 05/20/2022 8:49 PM 05/24/2022 8:22 PM * Full Code Date Activated Date Inactivated Comments 10/18/2018 8:35 AM 10/18/2018 3:39 PM * Full Code Date Activated Date Inactivated Comments 10/18/2018 8:34 AM 10/18/2018 8:35 AM Care Teams Inclusion Teacher Relationship Specialty Start Date End Date Vijay Truong MD [address] [place] [address] PCP - General 08/08/16 Rubén Miranda MD PhD [address] [place] [address] Radiation Oncologist Radiation Oncology 07/27/20 Lila James MD [address] [address] Referring Physician Surgical Oncology 07/27/20 Emile Berger MD [address] [place] [address] Referring Physician Psychiatry & Neurology 02/05/22 Ash Fraga MD [address] [place] [address] Medical Oncologist/Machine Sewer Hematology and Oncology 06/11/22
--- OUTSIDE RECORDS SUMMARY | 2024-10-14 13:05 | XMS_ITS ---
Author Organization [facility] Address [address] [place] [address] Care Team Providers Care Mind Reader Name Role Phone Vijay Truong MD Primary Care Provider [phone] Rubén Miranda MD PhD Unavailable [phone] Lila James MD Unavailable [phone] Emile Berger MD Unavailable [phone] Ash Fraga MD Unavailable [phone] Active Problems Problem Noted Date Diagnosed Date Screening mammogram for breast cancer 09/15/2024 Assessment & Plan (09/15/2024 1:30 PM CDT): Mammogram ordered. Will plan accordingly once results are received. Lung nodule 03/17/2024 Assessment & Plan (03/17/2024 7:38 AM BEAD MACHINE OPERATOR): Stable. Following with pulmonology and will continue to do so. Hypertension associated with diabetes 03/17/2024 Assessment & Plan (09/15/2024 1:29 PM CDT): Well controlled on lisinopril. Will continue to monitor. Assessment & Plan (04/27/2024 1:21 PM BEAD MACHINE OPERATOR): This is a chronic condition which is not at goal on arrival. At goal after rest. Goal is less than 140/90 Continue lisinopril, Lasix Encouraged to monitor weight and B/P at home. Assessment & Plan (03/17/2024 7:39 AM BEAD MACHINE OPERATOR): Normotensive. Continue lisinopril. Will continue to monitor. Colon cancer screening 03/17/2024 Assessment & Plan (03/17/2024 7:39 AM BEAD MACHINE OPERATOR): Referral to GI for screening colonoscopy placed History of colonic polyps 03/17/2024 Encounter for screening colonoscopy 03/17/2024 Anemia of chronic renal failure, stage 4 (severe ) 03/07/2024 Assessment & Plan (09/15/2024 1:29 PM CDT): Renal function stable. Anemia improving. Continues following closely with Nephrology. Assessment & Plan (03/17/2024 7:36 AM BEAD MACHINE OPERATOR): Stable. Following with Nephrology and will continue [...] Lasix Assessment & Plan (04/06/2023 3:42 PM BEAD MACHINE OPERATOR): This is a chronic condition which is [...] atorvastatin. Assessment & Plan (06/19/2022 2:08 PM BEAD MACHINE OPERATOR): This is a chronic condition which is [...] 01/17/2022 Assessment & Plan (03/17/2024 7:36 AM BEAD MACHINE OPERATOR): Visit preventive in nature. We reviewed medications, [...] 21 Assessment & Plan (04/09/2021 5:57 PM BEAD MACHINE OPERATOR): Vaccine given in office today. Reviewed possible [...] cooking Assessment & Plan (05/16/2022 5:25 PM BEAD MACHINE OPERATOR): Weights stable. Working on diet and exercise, previously riding stationary bike. Assessment & Plan (01/17/2022 10:16 AM CDT): Discussed healthy diet and importance of regular physical activity. Assessment & Plan (10/13/2021 1:35 PM CDT): Congratulated patient on her efforts to improve diet. Discussed healthy diet and importance of regular physical activity. Assessment & Plan (07/11/2021 11:00 AM BEAD MACHINE OPERATOR): Discussed healthy diet and importance of regular physical activity. Assessment & Plan (04/09/2021 5:57 PM BEAD MACHINE OPERATOR): Discussed healthy diet and importance of regular [...] bedtime. Assessment & Plan (05/17/2020 1:10 PM BEAD MACHINE OPERATOR): Omeprazole refilled. Reviewed provocative foods to avoid: caffeine, citrus, ETOH, carbonated drinks, fried/fatty/fast foods & rich/creamy sauces. Reviewed diet/exercise recommendations: 20-30min physicaly activity daily at minimum. Reviewed med Ses & scheduling. Weight loss will help improve GERD sxs. Keep HOB elevated 30 degrees & not eat 2-3 hrs before bedtime. Regional lymph node metastasis present Assessment & Plan (05/17/2020 1:09 PM BEAD MACHINE OPERATOR): L axillary lymph node. Anxious re: new L breast ca dx. Anxious re: pending treatments. Discussed at length during appt. Copies of recent screening/diagnostic mamm & ultrasound of L breast given to mrs Mejia. Discussed lymph node involvement. Referral placed to Dr James at [facility]. Aware that [...] from 05/09/2020:Stage IIA(cT2, cN1(f), cM0, G1, ER+, AL+, HER2-) - Signed by Rubén Miranda MD PhD on 07/27/2020 Pathologic stage from 07/02/2020:Stage IA(pT2, pN1a(sn), cM0, G1, ER+, AL+, HER2- ) - Signed by Rubén Miranda MD PhD on 07/27/2020 Assessment & Plan (01/17/2022 10:19 AM CDT): Assessment & Plan (04/09/2021 6:01 PM BEAD MACHINE OPERATOR): Follows with oncology, continues letrozone. To have [...] necessary. Assessment & Plan (05/17/2020 1:08 PM BEAD MACHINE OPERATOR): Anxious re: new L breast ca dx. Anxious re: pending treatments. Discussed at length during appt. Copies of recent screening/diagnostic mamm & ultrasound of L breast given to mrs Mejia. Discussed lymph node involvement. Referral placed to Dr James at [facility]. Aware that her office will call her to set up but number # incase call not rec'd. Referral printed for Mrs Mejia to have address/phone #. Answered any/all questions. aware to call if further questions after she's left. Dyslipidemia associated with type 2 diabetes mary litus 02/08/2020 Assessment & Plan (09/15/2024 1:29 PM CDT): Stable on atorvastatin. Tolerating without side effects. Will continue. Assessment & Plan (04/27/2024 1:21 PM BEAD MACHINE OPERATOR): This is a chronic condition which is at goal . Goal is LDL less than 70 Continue atorvastatin Encouraged to eat healthy, include fresh fruits and vegetables daily and avoid eating fried foods more than once per week. Assessment & Plan (03/17/2024 7:36 AM BEAD MACHINE OPERATOR): Stable. Continue atorvastatin. Tolerating without side effects. Will continue to monitor. Assessment & Plan (01/13/2024 12:49 PM CDT): This is a chronic condition which is at goal . Goal is LDL less than 70 Continue atorvastatin Encouraged to eat healthy, include fresh fruits and vegetables daily and avoid eating fried foods more than once per week. Assessment & Plan (04/06/2023 3:43 PM BEAD MACHINE OPERATOR): This is a chronic condition which is [...] prescribed. Assessment & Plan (06/19/2022 2:10 PM BEAD MACHINE OPERATOR): This is a chronic condition which is not at goal of LDL less than 70 Continue atorvastatin Encouraged to eat healthy, include fresh fruits and vegetables daily and avoid eating fried foods more than once per week. Encouraged to take medications as prescribed. Assessment & Plan (05/16/2022 5:17 PM BEAD MACHINE OPERATOR): Continue current regimen. Assessment & Plan (01/17/2022 10:16 AM CDT): 01/10/22 TC 186 TRG 421 HDL 29 LDL 90 Continue current regimen, recommended fish oil supplementation and following low fat diet. Will repeat labs prior to next office visit. Assessment & Plan (10/13/2021 1:35 PM CDT): Continue atorvastatin daily. Assessment & Plan (07/11/2021 11:16 PM BEAD MACHINE OPERATOR): Reviewed previous lipid panel. Doing well on atorvastatin 40 mg daily, denies any medication side effects. Assessment & Plan (04/09/2021 6:00 PM BEAD MACHINE OPERATOR): Results for orders placed or performed in [...] & Plan (08/16/2020 11:24 AM CDT): 12/22/18 AC=288 HDL=43 IC=470 LDL=88 TC/HDL=4.74 07/04/19 TC=78 HDL=32 ZX=430 WDT=248 TC/HDL=10.3 11/07/19 GE=250 DL=27 ME=539 NGC=982 CALC TC/HDL=12.0 to lab 02/09/20 PA=877 HDL=38 HM=241 LDL=92 TC/HLD=5.0 The 10-year ASCVD risk score (Danubetato BARYR Jr., et al., 2013) is: 11.5% Values [...] flags. Assessment & Plan (05/17/2020 1:10 PM BEAD MACHINE OPERATOR): We will check labs and make adjustments [...] 10/25/21. Assessment & Plan (05/16/2022 5:23 PM BEAD MACHINE OPERATOR): Following with nephrology. Discussed importance of well controlled blood pressure and diabetes management. Assessment & Plan (01/17/2022 9:44 AM CDT): 09/18/20 GFR=17 11/08/20 GFR=26 02/14/21 GFR=22 10/01/21 GFR=27 01/10/22 GFR=20 Following with nephrology. Assessment & Plan (10/13/2021 1:41 PM CDT): 09/18/20 GFR=17 11/08/20 GFR=26 02/14/21 GFR=22 10/01/21 GFR=27 Scheduled with nephrology 10/25/21. Assessment & Plan (04/09/2021 5:59 PM BEAD MACHINE OPERATOR): 09/18/20 GFR=17 11/08/20 GFR=26 02/14/21 GFR=22 Updated [...] function. Assessment & Plan (05/17/2020 1:11 PM BEAD MACHINE OPERATOR): GFR 11/07/19=35 GFR 02/09/20=35. Has been stable. [...] 11/06/2019 Assessment & Plan (05/16/2022 5:23 PM BEAD MACHINE OPERATOR): Lab Results Component Value Date HGBA1C 9.9 [...] 04/09/2021 Assessment & Plan (07/11/2021 11:17 PM BEAD MACHINE OPERATOR): Lab Results Component Value Date HGBA1C 10.5 07/11/2021 HGBA1C 9.7 04/09/2021 HGBA1C 11.7 01/07/2021 Patient agreeable to meet with power distributor to discuss healthy food choices to improve blood glucose. Referral placed. Will start basal insulin 10 units nightly, reviewed medication administration, follow up in 3 months and bring copy of blood sugar log to next apt. Reviewed s/s of hypo/hypergylcemia. Assessment & Plan (04/09/2021 6:08 PM BEAD MACHINE OPERATOR): Lab Results Component Value Date HGBA1C 9.7 [...] month Assessment & Plan (05/17/2020 1:09 PM BEAD MACHINE OPERATOR): Lab Results Component Value Date HGBA1C 9.6 [...] evaluation. Last eye exam december 2018 at [facility]. Letter sent to get copy of [...] 04/09/2021 Assessment & Plan (04/27/2024 1:21 PM BEAD MACHINE OPERATOR): This is a chronic condition which is [...] lisinopril. Assessment & Plan (03/17/2024 7:35 AM BEAD MACHINE OPERATOR): Improving. Continue following with endocrinology. Red flags reviewed. Hypertensive disorder 07/04/2019 Overview (05/19/2023): Last Assessment & Plan: Stable; continue current medication regimen. Assessment & Plan (04/06/2023 3:43 PM BEAD MACHINE OPERATOR): This is a chronic condition which is [...] prescribed. Assessment & Plan (06/19/2022 2:09 PM BEAD MACHINE OPERATOR): This is a chronic condition which is at goal of less than 140/90 Hypotension 94/48 Personally reviewed labs. Decrease lisinopril to 10 mg p.o. daily Encouraged to take medications as prescribed. Assessment & Plan (05/16/2022 5:23 PM BEAD MACHINE OPERATOR): Blood pressure well controled today. No changes in current regimen. Assessment & Plan (01/17/2022 10:14 AM CDT): Condition is stable Discussed/ordered labs, encouraged healthy, low carbohydrate lifestyle and at least 150min/week of exercise, continue on lisinopril 20 mg daily. BP checked by myself 118/80 Assessment & Plan (10/13/2021 1:41 PM CDT): Stable; continue current medication regimen. Assessment & Plan (07/11/2021 11:17 PM BEAD MACHINE OPERATOR): BP well controlled today. No changes in current medication regimen. Assessment & Plan (04/09/2021 6:10 PM BEAD MACHINE OPERATOR): Patient encouraged to take BP medication as [...] received. Assessment & Plan (05/17/2020 1:09 PM BEAD MACHINE OPERATOR): Does not check BP at home. The [...] (09/29/2018): Added automatically from request for surgery [id number] Fibromyalgia 01/01/2017 Assessment & Plan (03/17/2024 7:36 AM BEAD MACHINE OPERATOR): Stable on duloxetine. No changes. Will continue to monitor. Primary osteoarthritis involving multiple joints 01/01/2017 Major depressive disorder 01/01/2017 Assessment & Plan (07/11/2021 11:04 AM BEAD MACHINE OPERATOR): Managed by Dr. Berger at [facility], following up every 3 months. Continues seeing therapist once monthly. Discussed increasing frequency of counseling to once weekly if able. PHQ today 21. Discussed importance of regular exercise/ healthy diet and general healthy lifestyle to improve moods. Lives at home with son and two grandsons. Reports supportive family. Denies any SI/HI. Assessment & Plan (04/09/2021 10:47 AM BEAD MACHINE OPERATOR): PHQ=19 (worsening with breast CA diagnosis) Hydroxyzine 25mg q6hr prn, risperidone 2mg nightly, trazodone 100mg nightly, duloxetine DR 60mg daily, amitriptyline 25mg nightly. Managed by Dr Berger at [facility]. Sees him q3mos. Also sees therapist Kay at [facility]. Denies suicidal/homicidal ideation. Assessment & Plan (08/16/2020 11:22 AM CDT): Hydroxyzine 25mg q6hr prn, risperidone 2mg nightly, trazodone 100mg nightly, duloxetine DR 60mg daily, amitriptyline 25mg nightly. Managed by Dr Berger at [facility]. Doing phone visits with him q3mos. Also with therapist Kay at [facility]. Reports good control of depression w/current regimen. No changes to be made at this time. Reviewed med Ses & scheduling. Reviewed red flags. Assessment & Plan (02/09/2020 9:30 AM CDT): Following w/Dr Berger at [facility] every 3 months. following w/monthly therapy appts w/Mellisa Davidson at [facility]. Verified current medications. Will fax lab results to Dr Berger at [facility] once completed. Reports good control of depression w/current regimen. No changes to be made at this time. Reviewed med Ses & scheduling. Reviewed red flags. Assessment & Plan (11/07/2019 10:00 AM CDT): Followed by Dr Berger at [facility]. Reports good control of depression w/current regimen. [...] 21 Assessment & Plan (05/17/2020 1:11 PM BEAD MACHINE OPERATOR): Discussed healthy diet and importance of regular [...] healthier, we can set up appointment with litigation associate/import customer service manager. 3. Have an active lifestyle, strive for [...] & Plan (11/07/2019 10:01 AM CDT): 12/22/18 CH=161 HDL=43 FQ=848 LDL=88 TC/HDL=4.74 07/04/19 TC=78 HDL=32 JV=433 VFP=244 TC/HDL=10.3 11/07/19 GI=549 DL=27 LU=611 XCF=740 CALC TC/HDL=12.0 Copy of today's lipid panel given to mrs Mejia. Will have tests verified/repeated at lab today. Aware that atorvastatin will need increased if lipid panel elevated.
--- OUTSIDE RECORDS SUMMARY | 2024-10-14 13:06 | XMS_ITS | Encounter Summary ---
Author Organization [facility] Address [address] [place] [address] Care Team Providers Care Criminal Psychologist Name Role Phone Vijay Truong MD Primary Care Provider [phone] Rubén Miranda MD PhD Unavailable [phone] Lila James MD Unavailable [phone] Emile Berger MD Unavailable [phone] Ash Fraga MD Unavailable [phone] Encounter Details Date Type Department Care Team (Late st Contact Info) Description 10/13/2024 Orders Only [facility] [address] [facility] [place] [address] ProviderRadha MD [address] [place], [place] [id number] Social History Tobacco Use Types Packs/Day Years Used Date Smoking Tobacco: Former Cigarettes 1.5 41 1 967 - 2008 Smokeless Tobacco: Never Alcohol Use Standard Drinks/Week Comments No 0 [...] 06/26/2022 How often do you attend chur ch or lutheran services? 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 Gender Identity Not on file Sexual Orientation Not on file documented as of this encounter Plan of Treatment Not on file documented as of this encounter Procedures Procedure Name Priority Date/Time Associated Diagnosis Comments DIABETES EYE EXAM Routine 08/19/2024 8:56 AM CDT documented in this encounter Results * DIABETES EYE EXAM (08/19/2024 8:56 AM CDT) us Historical Provider HEALTH MAINTENANCE Edited Result - Final documented in this encounter Visit Diagnoses Not on filedocumented in this encounter Care Teams Criminal Psychologist Relationship Specialty Start Date End Date Vijay Truong MD [address] [place] [address] PCP - General 08/08/16 Rubén Miranda MD PhD [address] [place] [address] Radiation Oncologist Radiation Oncology 07/27/20 [place] [address] [place] [address] Referring Physician Surgical Oncology 07/27/20 Emile Berger MD [address] [place] [address] Referring Physician Psychiatry & Neurology 02/05/22 Ash Fraga MD [address] [place] [address] Medical Oncologist/Timing Machine Operator Hematology and Oncology 06/11/22 documented as of this encounter
--- OUTSIDE RECORDS SUMMARY | 2024-10-14 13:06 | XMS_ITS | Clinical Summary ---
Author Organization [facility] Address [address] [place] [address] Care Team Providers Care Mds Manager Name Role Phone Vijay Truong MD Primary Care Provider [phone] Source Comments [facility],non-owned Affiliates and Associated Physician Practices is amultiple site organization consisting of ambulatory clinics and hospital sitesin [place], [place], [place] and [place]. This disclosure is being madepursuant to the Care Everywhere program and may not contain all information available regarding this patient. Last updated 18.[facility] Healcerion Allergies No known active allergies Medications * Be aware that medications may not be up to date on this document. Alwaysverify current medications with the patient. atorvastatin (Lipitor) 40 MG tablet Take 1 [...] bedtime Active sertraline (Zoloft) 50 MG tablet 3 Active risperiDONE (RisperDAL) 2 MG tablet Take 1 (one) tablet by mouth once daily Active insulin glargine (Lantus/Semgle e) 100 units/mL pen Inject 24 (twenty four) Units subcutaneously at bedtime 3 Active aspirin (Aspirin) 81 MG chew tablet Take 1 (one) tablet by mouth once daily 4 Active clopidogrel (plaVIX) 75 MG tablet Take 1 (one) tablet by mouth once daily 4 Active oxyCODONE, immediate release, (Roxicodone) 5 MG tabletIndicati ons:End stage renal disease (HCC) TAKE ONE TABLET BY MOUTH EVERY 6 HOURS NEEDED FOR PAIN 12 tablet 4 Active Active Problems Problem Noted Date [...] more drinks on one occasion? Never 01/28/2024 Comments No Sex and Gender Information Value Date Recorded Sex Assigned at Not on file Legal Sex Female 4:22 AM CANE FLUME WATCHMAN Gender Identity Not on file Sexual Orientation [...] 3:18 PM CDT Height 167.6 cm (5' 6) 02/15/2024 3:18 PM CDT Body Mass Index 23.57 02/15/2024 3:18 PM CDT Plan of Treatment Health Maintenance Due Date Last Done Comments COLOGUARD (AGES 45-75) - COLON CA SCREENING [address] CT COLONOGRAPHY - COLON CA SCREENING [...] VACCINE (2 - 2023- season) 2024 09/17/2020 MAMMOGRAM 03/28/2024 03/28/2022, 03/11, 03/22/2021, Additional history exists DEPRESSION SCREENING 05/11/2024 MEDICARE AWV CALENDAR YEAR 2024 DIABETES-HGB A1C 06/24/2024 12/23/2023, 04/06/2023 INFLUENZA VACCINE (Season Ended) 2025 02/01/2023, 01/17/2022, 04/09/2021, Additional history exists COLON MONITORING 10/18/2028 10/18/2018 COLONOSCOPY - COLON CA SCREENING 10/18/2028 10/18/2018 [...] on patient's age to complete this topic Insurance [facility] MANAGED MEDICARE ADV Care Teams Mds Manager Relationship Specialty Start Date End Date Vijay Truong MD [address] [place] [address] PCP - General Internal Medicine 01/06/24
--- OUTSIDE RECORDS SUMMARY | 2024-10-14 13:06 | XMS_ITS | Encounter Summary ---
Author Organization [facility] Healthcare Address [address] [place] [address] Care Team Providers Care Home Extension Agent Name Role Phone Vijay Truong MD Primary Care Provider [phone] Rubén Miranda MD PhD Unavailable [phone] Lila James MD Unavailable [phone] Emile Berger MD Unavailable [phone] Ash Fraga MD Unavailable [phone] Encounter Details Date Type Department Care Team (Latest Contact Info) Description 08/28/2024 Results Follow-Up [facility] Gastroenterology at [address] [place] [address] Nathan Brooks, [address] [place] [address] Surgical pathology Social History Tobacco Use Types Packs/Day Years [...] do you attend [facility] or voodoo services? More than 4 times per year 06/26/2022 Do you belong to any clubs o r organizations such as roman catholic groups, unions, fraternal or athletic groups, or [...] place to sleep or slept in a assisted (including now)? 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 Gender Identity Not on file Sexual Orientation Not on file documented as of this encounter Plan of Treatment Not on file documented as of this encounter Visit Diagnoses Not on filedocumented in this encounter Care Teams Home Extension Agent Relationship Specialty Start Date End Date Vijay Truong MD [address] [place] [address] PCP - General 08/08/16 Rubén Miranda MD PhD [address] [place] [address] Radiation Oncologist Radiation Oncology 07/27/20 [place] [address] [place] [address] Referring Physician Surgical Oncology 07/27/20 Emile Berger MD [address] [place] [address] Referring Physician Psychiatry & Neurology 02/05/22 Ash Fraga MD [address] [place] [address] Medical Oncologist/Research Nutritionist Hematology and Oncology 06/11/22 documented as of this encounter
--- OUTSIDE RECORDS SUMMARY | 2024-10-14 13:06 | XMS_ITS | Clinical Summary ---
Author Organization [facility] Address [address] [place] [id number] Care Team Providers Care Reporting Specialist Name Role Phone Vijay Truong MD Primary Care Provider [phone] Rubén Miranda MD PhD Unavailable [phone] Lila James MD Unavailable [phone] Emile Berger MD Unavailable [phone] Ash Fraga MD Unavailable [phone] Allergies No known active allergies Medications blood-glucose meter kit Use to test blood sugar once daily. 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 E11.65 100 each 4 02/17/[address] (PROTONIX) 40 mg EC tablet Take 1 tablet (40 mg total) by mouth daily 90 tablet 4 03/16/20 24 025 Active calcitRIOL (ROCALTROL) 0.25 mcg capsule Take 1 capsule (0.25 mcg total) by mouth 03/02/20 24 Active atorvastatin (LIPITOR) 40 mg tabletIndications:Dy slipidemia associated with type 2 diabetes mellitus ([facility]) Take 1 tablet (40 mg total) by mouth daily 90 tablet 4 03/17/20 24 Active lisinopriL (PRINIVIL,ZESTRIL) 10 mg tabletIndications:Hy pertension associated with diabetes ([facility]) Take 2 tablets (20 mg total) by mouth daily 180 tablet 3 03/17/20 24 Active insulin glargine 100 unit/mL (3 mL) pen for injectionIndications :Type 2 diabetes mellitus with hypoglycemia without coma, with long-term current use of insulin ([facility]) Inject 18 Units under the skin nightly [...] 03/17/2024 Assessment & Plan (03/17/2024 7:38 AM FIRM ADMINISTRATOR): Stable. Following with pulmonology and will continue to do so. Hypertension associated with diabetes 03/17/2024 Assessment & Plan (09/15/2024 1:29 PM CDT): Well controlled on lisinopril. Will continue to monitor. Assessment & Plan (04/27/2024 1:21 PM FIRM ADMINISTRATOR): This is a chronic condition which is not at goal on arrival. At goal after rest. Goal is less than 140/90 Continue lisinopril, Lasix Encouraged to monitor weight and B/P at home. Assessment & Plan (03/17/2024 7:39 AM FIRM ADMINISTRATOR): Normotensive. Continue lisinopril. Will continue to monitor. Colon cancer screening 03/17/2024 Assessment & Plan (03/17/2024 7:39 AM FIRM ADMINISTRATOR): Referral to GI for screening colonoscopy placed History of colonic polyps 03/17/2024 Encounter for screening colonoscopy 03/17/2024 Anemia of chronic renal failure, stage 4 (severe ) 03/07/2024 Assessment & Plan (09/15/2024 1:29 PM CDT): Renal function stable. Anemia improving. Continues following closely with Nephrology. Assessment & Plan (03/17/2024 7:36 AM FIRM ADMINISTRATOR): Stable. Following with Nephrology and will continue [...] Lasix Assessment & Plan (04/06/2023 3:42 PM FIRM ADMINISTRATOR): This is a chronic condition which is [...] atorvastatin. Assessment & Plan (06/19/2022 2:08 PM FIRM ADMINISTRATOR): This is a chronic condition which is [...] 01/17/2022 Assessment & Plan (03/17/2024 7:36 AM FIRM ADMINISTRATOR): Visit preventive in nature. We reviewed medications, [...] 21 Assessment & Plan (04/09/2021 5:57 PM FIRM ADMINISTRATOR): Vaccine given in office today. Reviewed possible [...] cooking Assessment & Plan (05/16/2022 5:25 PM FIRM ADMINISTRATOR): Weights stable. Working on diet and exercise, previously riding stationary bike. Assessment & Plan (01/17/2022 10:16 AM CDT): Discussed healthy diet and importance of regular physical activity. Assessment & Plan (10/13/2021 1:35 PM CDT): Congratulated patient on her efforts to improve diet. Discussed healthy diet and importance of regular physical activity. Assessment & Plan (07/11/2021 11:00 AM FIRM ADMINISTRATOR): Discussed healthy diet and importance of regular physical activity. Assessment & Plan (04/09/2021 5:57 PM FIRM ADMINISTRATOR): Discussed healthy diet and importance of regular [...] bedtime. Assessment & Plan (05/17/2020 1:10 PM FIRM ADMINISTRATOR): Omeprazole refilled. Reviewed provocative foods to avoid: caffeine, citrus, ETOH, carbonated drinks, fried/fatty/fast foods & rich/creamy sauces. Reviewed diet/exercise recommendations: 20-30min physicaly activity daily at minimum. Reviewed med Ses & scheduling. Weight loss will help improve GERD sxs. Keep HOB elevated 30 degrees & not eat 2-3 hrs before bedtime. Regional lymph node metastasis present Assessment & Plan (05/17/2020 1:09 PM FIRM ADMINISTRATOR): L axillary lymph node. Anxious re: new L breast ca dx. Anxious re: pending treatments. Discussed at length during appt. Copies of recent screening/diagnostic mamm & ultrasound of L breast given to mrs Perez. Discussed lymph node involvement. Referral placed to Dr James at [facility]. Aware that her office will [...] from 05/09/2020:Stage IIA(cT2, cN1(f), cM0, G1, ER+, AR+, HER2-) - Signed by Rubén Miranda MD PhD on 07/27/2020 Pathologic stage from 07/02/2020:Stage IA(pT2, pN1a(sn), cM0, G1, ER+, AR+, HER2- ) - Signed by Rubén Miranda MD PhD on 07/27/2020 Assessment & Plan (01/17/2022 10:19 AM CDT): Assessment & Plan (04/09/2021 6:01 PM FIRM ADMINISTRATOR): Follows with oncology, continues letrozone. To have [...] necessary. Assessment & Plan (05/17/2020 1:08 PM FIRM ADMINISTRATOR): Anxious re: new L breast ca dx. Anxious re: pending treatments. Discussed at length during appt. Copies of recent screening/diagnostic mamm & ultrasound of L breast given to mrs Perez. Discussed lymph node involvement. Referral placed to Dr James at [facility]. Aware that her office will [...] continue. Assessment & Plan (04/27/2024 1:21 PM FIRM ADMINISTRATOR): This is a chronic condition which is at goal . Goal is LDL less than 70 Continue atorvastatin Encouraged to eat healthy, include fresh fruits and vegetables daily and avoid eating fried foods more than once per week. Assessment & Plan (03/17/2024 7:36 AM FIRM ADMINISTRATOR): Stable. Continue atorvastatin. Tolerating without side effects. Will continue to monitor. Assessment & Plan (01/13/2024 12:49 PM CDT): This is a chronic condition which is at goal . Goal is LDL less than 70 Continue atorvastatin Encouraged to eat healthy, include fresh fruits and vegetables daily and avoid eating fried foods more than once per week. Assessment & Plan (04/06/2023 3:43 PM FIRM ADMINISTRATOR): This is a chronic condition which is [...] prescribed. Assessment & Plan (06/19/2022 2:10 PM FIRM ADMINISTRATOR): This is a chronic condition which is not at goal of LDL less than 70 Continue atorvastatin Encouraged to eat healthy, include fresh fruits and vegetables daily and avoid eating fried foods more than once per week. Encouraged to take medications as prescribed. Assessment & Plan (05/16/2022 5:17 PM FIRM ADMINISTRATOR): Continue current regimen. Assessment & Plan (01/17/2022 10:16 AM CDT): 01/10/22 TC 186 TRG 421 HDL 29 LDL 90 Continue current regimen, recommended fish oil supplementation and following low fat diet. Will repeat labs prior to next office visit. Assessment & Plan (10/13/2021 1:35 PM CDT): Continue atorvastatin daily. Assessment & Plan (07/11/2021 11:16 PM FIRM ADMINISTRATOR): Reviewed previous lipid panel. Doing well on atorvastatin 40 mg daily, denies any medication side effects. Assessment & Plan (04/09/2021 6:00 PM FIRM ADMINISTRATOR): Results for orders placed or performed in [...] & Plan (08/16/2020 11:24 AM CDT): 12/22/18 YJ=629 HDL=43 JD=619 LDL=88 TC/HDL=4.74 07/04/19 TC=78 HDL=32 ID=970 VIS=252 TC/HDL=10.3 11/07/19 YV=628 DL=27 SN=836 MSQ=108 CALC TC/HDL=12.0 to lab 02/09/20 CH=399 HDL=38 DX=898 LDL=92 TC/HLD=5.0 The 10-year ASCVD risk score [...] flags. Assessment & Plan (05/17/2020 1:10 PM FIRM ADMINISTRATOR): We will check labs and make adjustments [...] 10/25/21. Assessment & Plan (05/16/2022 5:23 PM FIRM ADMINISTRATOR): Following with nephrology. Discussed importance of well controlled blood pressure and diabetes management. Assessment & Plan (01/17/2022 9:44 AM CDT): 09/18/20 GFR=17 11/08/20 GFR=26 02/14/21 GFR=22 10/01/21 GFR=27 01/10/22 GFR=20 Following with nephrology. Assessment & Plan (10/13/2021 1:41 PM CDT): 09/18/20 GFR=17 11/08/20 GFR=26 10 GFR=22 10/01/21 GFR=27 Scheduled with nephrology 10/25/21. Assessment & Plan (04/09/2021 5:59 PM FIRM ADMINISTRATOR): 09/18/20 GFR=17 11/08/20 GFR=26 02/14/21 GFR=22 Updated [...] function. Assessment & Plan (05/17/2020 1:11 PM FIRM ADMINISTRATOR): GFR 11/07/19=35 GFR 02/09/20=35. Has been stable. [...] 11/06/2019 Assessment & Plan (05/16/2022 5:23 PM FIRM ADMINISTRATOR): Lab Results Component Value Date HGBA1C 9.9 [...] 04/09/2021 Assessment & Plan (07/11/2021 11:17 PM FIRM ADMINISTRATOR): Lab Results Component Value Date HGBA1C 10.5 07/11/2021 HGBA1C 9.7 04/09/2021 HGBA1C 11.7 01/07/2021 Patient agreeable to meet with extraction operator to discuss healthy food choices to improve blood glucose. Referral placed. Will start basal insulin 10 units nightly, reviewed medication administration, follow up in 3 months and bring copy of blood sugar log to next apt. Reviewed s/s of hypo/hypergylcemia. Assessment & Plan (04/09/2021 6:08 PM FIRM ADMINISTRATOR): Lab Results Component Value Date HGBA1C 9.7 [...] month Assessment & Plan (05/17/2020 1:09 PM FIRM ADMINISTRATOR): Lab Results Component Value Date HGBA1C 9.6 [...] evaluation. Last eye exam december 2018 at [facility]. Letter sent to get copy of results [...] 04/09/2021 Assessment & Plan (04/27/2024 1:21 PM FIRM ADMINISTRATOR): This is a chronic condition which is [...] lisinopril. Assessment & Plan (03/17/2024 7:35 AM FIRM ADMINISTRATOR): Improving. Continue following with endocrinology. Red flags reviewed. Hypertensive disorder 07/04/2019 Overview (05/19/2023): Last Assessment & Plan: Stable; continue current medication regimen. Assessment & Plan (04/06/2023 3:43 PM FIRM ADMINISTRATOR): This is a chronic condition which is [...] prescribed. Assessment & Plan (06/19/2022 2:09 PM FIRM ADMINISTRATOR): This is a chronic condition which is at goal of less than 140/90 Hypotension 94/48 Personally reviewed labs. Decrease lisinopril to 10 mg p.o. daily Encouraged to take medications as prescribed. Assessment & Plan (05/16/2022 5:23 PM FIRM ADMINISTRATOR): Blood pressure well controled today. No changes in current regimen. Assessment & Plan (01/17/2022 10:14 AM CDT): Condition is stable Discussed/ordered labs, encouraged healthy, low carbohydrate lifestyle and at least 150min/week of exercise, continue on lisinopril 20 mg daily. BP checked by myself 118/80 Assessment & Plan (10/13/2021 1:41 PM CDT): Stable; continue current medication regimen. Assessment & Plan (07/11/2021 11:17 PM FIRM ADMINISTRATOR): BP well controlled today. No changes in current medication regimen. Assessment & Plan (04/09/2021 6:10 PM FIRM ADMINISTRATOR): Patient encouraged to take BP medication as [...] received. Assessment & Plan (05/17/2020 1:09 PM FIRM ADMINISTRATOR): Does not check BP at home. The [...] (09/29/2018): Added automatically from request for surgery [id number] Fibromyalgia 01/01/2017 Assessment & Plan (03/17/2024 7:36 AM FIRM ADMINISTRATOR): Stable on duloxetine. No changes. Will continue to monitor. Primary osteoarthritis involving multiple joints 01/01/2017 Major depressive disorder 01/01/2017 Assessment & Plan (07/11/2021 11:04 AM FIRM ADMINISTRATOR): [facility] [...] SI/HI. Assessment & Plan (04/09/2021 10:47 AM FIRM ADMINISTRATOR): PHQ=19 (worsening with breast CA diagnosis) Hydroxyzine [...] 21 Assessment & Plan (05/17/2020 1:11 PM FIRM ADMINISTRATOR): Discussed healthy diet and importance of regular [...] healthier, we can set up appointment with human factors specialist/acquisitions analyst. 3. Have an active lifestyle, strive for [...] & Plan (11/07/2019 10:01 AM CDT): 12/22/18 EK=768 HDL=43 HT=980 LDL=88 TC/HDL=4.74 07/04/19 TC=78 HDL=32 XU=569 XVY=245 TC/HDL=10.3 11/07/19 XK=099 DL=27 QP=041 WHF=505 CALC TC/HDL=12.0 Copy of today's lipid panel given to mrs Perez. Will have tests verified/repeated at lab today. Aware that atorvastatin will need increased if lipid panel elevated. Encounters Date Type Department Care Team Description 10/13/2024 Orders Only [facility] [address] [phone] Radah Rodriges MD 09/19/2024 Telephone [facility] [address] [phone] Vijay Truong MD Medical Records Request 09/15/2024 12:30 PM CDT Office Visit [facility] [address] [phone] Nidia Rojas NP Dyslipidemia associated with type 2 diabetes mellitus (HCC) (Primary Dx); Screening mammogram for breast cancer; Hypertension associated with diabetes (HCC); Anemia of chronic renal failure, stage 4 (severe) (HCC) 09/12/2024 8:55 AM CDT Lab [address] [phone] Dyslipidemia associated with type 2 diabetes mellitus (HCC); Hypertension associated with diabetes (HCC) 09/09/2024 Telephone [facility] [address] [phone] Inna Lugo MA Labs Requested for Appointment 08/28/2024 Results Follow-Up [facility] at [address] [place] [address] Nathan Brooks, Surgical pathology 08/24/2024 8:03 AM CDT Anesthesia Event [address] [address] Piter Spencer DO 08/24/2024 7:30 AM CDT - 08/24/2024 8:00 AM CDT Surgery [address] [address] Nathan Brooks, COLON BIOPSY 08/24/2024 6:00 AM CDT - 08/24/2024 9:11 AM CDT Hospital Encounter [facility] [address] [place] [address] Nathan Brooks, History of colonic polyps; Encounter for screening colonoscopy Discharge Disposition: Discharge to home or self care 08/17/[address] [place] [phone] Ashu Arevalo MD 08/09/[address] [place] [phone] Ashu Arevalo MD 08/08/2024 2:30 PM CDT Clinical Support [address] [phone] Anemia of chronic renal failure, stage 4 (severe) (HCC) (Primary Dx) 08/08/2024 2:15 PM CDT Lab [address] [place] [phone] Anemia of chronic renal failure, unspecified CKD stage (Primary Dx) 08/03/2024 Orders Only [facility] [address] [phone] Vijay Truong MD 08/03/2024 Telephone [facility] [address] [phone] Vijay Truong MD Medical Question/Miscellan eous from Last 3 Months Immunizations Immunization Administration Dates Next Due COVID-19 mRNA (Anywhere to Go) 0.3 m L (30 mcg) vaccine (12 [...] 12/20/2012 Tdap 07/30/2024,07/11/2021 ZOSTER Recombinant 07/13/2020,05/01/2020, 020 Surgical History Surgery Date Site/Laterality Comments VAGINAL HYSTERECTOMY 05/11/2005 - 05/10/2006 Hysterectomy, vaginal SECTION section SECTION HYSTERECTOMY 05/11/2005 - 05/10/2006 OOPHORECTOMY 05/11/2005 - 05/10/2006 US GUIDED BIOPSY LYMPH NODE SUPERFICIAL LEFT 05/09/2020 N/A BREAST BIOPSY 05/09/2020 Left IDC with axillary involvement COLONOSCOPY 10/09/2018 - 11/07/2018 ROTATOR CUFF REPAIR Bilateral KNEE ARTHROSCOPY Right LIPOMA RESECTION 10/09/1997 - 11/07/1997 back ESOPHAGOGASTRODUODENOSCOPY HAND SURGERY MASTECTOMY Left COLONOSCOPY Medical History Medical History Date Comments Breast cancer (HCC) 04/29/2020 invasive martin iveth carcinoma w/ mets to lymph node Osteoarthritis GERD (gastroesophageal reflux disease) Adenomatous colon polyp MDD (major depressive disorder) TISH (generalized anxiety disorder) Fibromyalgia HTN (hypertension) HLD (hyperlipidemia) Low bone mass DM (diabetes mellitus) (HCC) Diabetic retinopathy (HCC) ESRD (end stage renal disease) (HCC) Family History Medical History Relation Name Comments [...] week 06/26/2022 How often do you attend [facility] or sikh services? More than 4 times per year 06/26/2022 Do you belong to any clubs o r organizations such as restorationist groups, unions, fraternal or athletic groups, or [...] place to sleep or slept in a correction (including now)? No 06/26/2022 Personal Safety Answer [...] on file Legal Sex Female 12:56 PM FIRM ADMINISTRATOR Gender Identity Not on file Sexual Orientation [...] 09/15/2024 12:03 PM CDT Plan of Treatment Health Maintenance Due Date Last Done Comments Hepatitis B Screening 12/20/1975 Breast Cancer Screening-Mammogram 03/28/2023 03/28/2022, 03/22/2021, 02/16/2020, Additional history exists Covid-19 Vaccine (2023-2 5 season) 2024 02/01/2023, 02/06/2022, 04/30/2021, Additional history exists Hemoglobin A1C 10/26/2024 04/27/2024, 12/09, 04/06/2023, Additional history exists Albumin Creatinine Ratio, Urine 02/22/2025 02/23/2024, 12/23/2023, 03/11/2022, Additional history exists Depression Screening 03/17/2025 03/17/2024, 10/16/2022, 10/16/2022, Additional history exists Well Visit 65+ 03/17/2025 03/17/2024, 090 01/2022, 11/07/2019, Additional history exists Osteoporosis Screening-Bone Density Scan 04/03/2025 04/03/2023, 08/20/2020 Foot Exam 04/27/2025 04/27/2024, 09/0 08/2023, 04/06/2023, Additional history exists Dilated Eye Exam 08/19/2025 08/19/2024, 02/2023, 05/20/2022, Additional history exists Lipid Panel 09/12/2025 09/12/2024, 12/09, 10/16/2022, Additional history exists eGFR 09/12/2025 09/12/2024, 02/0 07/2024, 02/23/2024, Additional history exists Fall Risk Assessment 09/15/2025 09/15/2024, 03/17/2024, 10/16/2022, Additional history exists Colon Cancer Screening-Colonoscopy 08/24/2029 08/24/2024, 10/18/2018 DTaP/Tdap/Td Vaccine (3 - Td or Tdap) 07/30/2034 07/30/2024, 07/11/2021 Hepatitis C Screening Completed 01/29/2015 Zoster Vaccine Completed 07/13/2020, 04/11, 05/01/2020 Pneumococcal vaccine 65+ Completed 023, 02/12/2016, 12/20/2012, Additional history exists Influenza Vaccine Completed 03/17/2024, , 02/01/2023, Additional history exists Colon Cancer Screening-CT Colonography Discontinued 08/24/2024, 10/18/2018 Colon Cancer Screening-DNA Stool Discontinued 08/25/19, 10/18/2018 Colon Cancer Screening-FIT Discontinued 08/24/2024, Colon Cancer Screening-Sigmoidoscopy Discontinued 08/24/2024, 10/18/2018 Medical Devices Implanted Type Area Employee Benefits Attorney Device Identifier Shelf Expiration Date Model / Serial / Lot Bard Peripheral Vascular [id number] Ultraclip Bard 17ga 12cm 2 Trigger Permanent Ultrasound - [id number] - [id number] Implanted:Qty: 1 on 05/09/2020 by Oc Amin MD at [facility] Breast Left: Breast [employer] Peripheral V[employer] 11/05/2022 [id number] / [id number] / Bard Peripheral Vascular [id number] Ultraclip Bard 17ga 10cm 2 Trigger Permanent Ultrasound - [id number] - [id number] Implanted:Qty: 1 on 05/09/2020 by Oc Amin MD at [facility] Breast Left: Breast [employer] Peripheral V[employer] 12/05/2022 [id number] / [id number] / Procedures Procedure Name Priority Date/Time Associated [...] 8:56 AM CDT DIFFERENTIAL AUTO Routine 08/08/2024 1: 55 PM CDT Anemia of chronic renal failure, stage 4 (severe) (HCC) CBC WITH AUTO DIFFERENTIAL Routine 08/08/2024 1:55 PM CDT Anemia of chronic renal failure, stage 4 (severe) (HCC) POCT HEMOGLOBIN A1C Routine 04/27/2024 1 :05 PM FIRM ADMINISTRATOR Type 2 diabetes mellitus with hypoglycemia without coma, with long-term current use of insulin (HCC) ALBUMIN CREATININE RATIO, URINE Routine 02/23/2024 12:10 PM CDT DEXA AXIAL SKELETON BONE DENSITY 1 OR MORE SITES Schedule Routine, Read Routine (OP Routine) 04/03/2023 12:42 PM FIRM ADMINISTRATOR At high risk for osteoporosis Age-related osteoporosis without current pathological fracture SCREENING MAMMOGRAM RIGHT W WES[place] UNILATERAL ONLY Schedule Routine, Read Routine (OP Routine) 03/28/2022 2:03 PM FIRM ADMINISTRATOR Personal history of breast cancer Encounter for [...] LAB BLOOD ORDERABLES Final Result [facility] ([facility]) 1 [facility] Department [place] [address] * Differential, auto (09/12/2024 9:00 [...] ORDERABLES Final Result [facility] ([facility]) 1 [facility] [place] [address] * (ABNORMAL) CBC with auto differential (09/12/2024 [...] ORDERABLES Final Result [facility] ([facility]) [facility] [place] [address] * Lipid panel (09/12/2024 9:00 AM CDT) [...] Chol/HDL ratio 3 [facility] ([facility]) Blood 09/12/2024 9:00 AM CDT 09/12/2024 9:45 AM CDT Nidia Rojas NP LAB BLOOD ORDERABLES Final Result [facility] ([facility]) 1 [facility] Department [place] [address] * (ABNORMAL) Comprehensive metabolic panel (09/12/2024 9:00 AM CDT) Sodium 137 135 - 145 mmol/L Potassium, pl 4.9 3.3 - 4.9 mmol/L [facility] ([facility]) Chloride 103 97 - 110 mmol/L [facility] ([facility]) CO2 21(L) 22 - 32 [...] ORDERABLES Final Result [facility] ([facility]) 1 [facility] Department of Laboratories [place], [place] [id number] * Surgical pathology (08/24/2024 2:16 PM CDT) Tissue (Polyp(s), colon/colorectal, esophageal, gastric) 08/24/2024 8:16 AM CDT Tissue specimen (specimen) (Polyp(s), colon/colorectal, esophageal, gastric) 08/24/2024 8:21 AM CDT Narrative [facility] - 08/26/2024 8:44 AM CDT EPIC results best viewed via link to PDF [facility] Department of Pathology [address] [place], [place] [id number] Note to Patients: This report may contain [...] Final Report Patient Name: DANA PEREZ Address: [address] [place] [address]- Gender: F : 1955 (Age: 68) Service: Gastro Location: [facility] Hospital #: [id number] Patient Type: [facility] Taken: 08/24/2024 Received: 08/24/2024 Accessioned: 08/24/2024 Reported: 08/26/2024 Physician(s):Dr. Nathan Brooks, D.O. Diagnosis: A. Colon, ascending, biopsy: - Tubular [...] 6 mm. All in [facility]Camelia Stallings M.D. REPORT IMAGES AND SCANNED DOCUMENTS, IF INCLUDED, ONLY VIEWABLE IN PDF VERSION OF REPORT The performance characteristics of some immunohistochemical stains, fluorescence in-situ hybridization tests and immunophenotyping by flow cytometry cited in this report (if any) were determined by the Surgical Pathology Department at [facility] as part of an ongoing machined parts quality inspector program and in compliance with federally mandated [...] characteristics determined by the Surgical Pathology Department [facility]. It has not been cleared or approved by the U. S. Food and Drug Administration. Note for decalcified specimens: This assay has not been validated on decalcified tissues. Results should be interpreted with caution given the possibility of false negativity on decalcified specimens us Nathan Brooks DO LAB PATHOLOGY ORDERABLES Final Result [facility] [address] [place] [address] * POCT glucose (08/24/2024 8:03 AM CDT) Glucose, POC 119 70 - 199 mg/dL Blood 08/24/2024 8:03 AM CDT 08/24/2024 8:03 AM CDT us Nathan Brooks DO LAB POCT ORDERABLES - DEVICE F inal Result [facility] ([facility]) 1 [place] [address] * (ABNORMAL) POCT glucose (08/24/2024 7:18 AM CDT) Glucose, POC 60(L) 70 - 199 mg/dL Blood 08/24/2024 7:18 AM CDT 08/24/2024 7:18 AM CDT us Nathan Brooks DO LAB POCT ORDERABLES - DEVICE F inal Result Performing Organization Address [place] [facility] Co de Phone Number OSMIN ESTRADA (SASSER) [address] [place] [address] * Colonoscopy (08/24/2024 7:16 AM CDT) Anatomical Region Laterality Modality Other Narrative Procedure Note Nathan Brooks, - 08/24/2024 7:16 AM CDT [facility] Patient Name: Dana Perez Procedure Date: 08/24/2024 7:16 AM Date of : 1955 Admit Type: Outpatient Age: 68 Gender: Female Attending MD: Nathan Brooks D.O. Room: [facility] 3 Note Status: Finalized Patient [...] immediately with the 2nd glass ofwater. Florastor MotorExchange per labelinstructions. MiraLax 1 capful 1-2 times [...] passed under direct vision. The Pediatric Colonoscope [id number] was introduced through the anus and advanced [...] 7:16 AM Procedure Code(s): --- Professional --- 48093, Colonoscopy, flexible; with biopsy, single or multiple --- Technical --- 32443, Colonoscopy, flexible; with biopsy, single or multiple [...] perforation orabscess without bleeding CPT copyright 2020 [employer]. All rights reserved. The codes documented in this report are preliminary and upon remote medical coder reviewmay be revised to meet current compliance requirements. Recognized by the [employer] for promoting quality in endoscopy Nathan Brooks DO ENDOSCOPY PROCEDURES Final Res ult * HM DIABETES EYE EXAM (08/19/2024 8:56 AM CDT) Historical Provider [facility] Edited Result - Final * Differential, auto (08/08/2024 1:55 PM CDT) Neutrophil abs 5.8 1.5 - 6.5 K/cumm Comment:Testing performed by : [facility] [address], Medical Office [facility] [address], [place] [address] Imm gran abs 0.0 0.0 - 0.1 K/cumm [facility] (ERASMO) Comment:Testing performed by : [facility] [address], Medical Office [facility] [address], [place] [address] Lymphocyte abs 0.9 0.8 - 3.3 K/cumm [facility] (ERASMO) Comment:Testing performed by : [facility] [address], Medical Office [facility] [address], [place] [address] Monocyte abs 0.4 0.2 - 0.8 K/cumm [facility] (SASSER) Comment:Testing performed by : [facility] [address], Medical Office [facility] [address], [place] [address] Eosinophil abs 0.1 0.0 - 0.5 K/cumm [facility] (SASSER) Comment:Testing performed by : [facility] [address], Medical Office [facility] [address], [place] [address] Basophil abs 0.1 0.0 - 0.1 K/cumm [facility] (ERASMO) Comment:Testing performed by : [facility] [address], Medical Office [facility] [address], [place] [address] Neutrophil pct 79.7 % [facility] (ERASMO) Comment: Interpretive Data Percent cell count reference ranges are not reported, since discordance with absolute values may lead to misinterpretation of CBC data. Current Interpretive Data was last revised on 2022. Testing performed by: [facility] [address], Medical Office [facility] [address], [place] [address] Imm gran pct 0.3 % [facility] (SASSER) Comment: Interpretive Data Percent cell count reference ranges are not reported, since discordance with absolute values may lead to misinterpretation of CBC data. Current Interpretive Data was last revised on 2022. Testing performed by: [facility] [address], Medical Office [facility] [address], [place] [address] Lymphocyte pct 12.9 % [facility] (ERASMO) Comment: Interpretive Data Percent cell count reference ranges are not reported, since discordance with absolute values may lead to misinterpretation of CBC data. Current Interpretive Data was last revised on 2022. Testing performed by: [facility] [address], Medical Office [facility] [address], [place] [address] Monocyte pct 5.4 % [facility] (ERASMO) Comment: Interpretive Data Percent cell count reference ranges are not reported, since discordance with absolute values may lead to misinterpretation of CBC data. Current Interpretive Data was last revised on 2022. Testing performed by: [facility] [address], Medical Office [facility] [address], [place] [address] Eosinophil pct 1.0 % [facility] (ERASMO) Comment: Interpretive Data Percent cell count reference ranges are not reported, since discordance with absolute values may lead to misinterpretation of CBC data. Current Interpretive Data was last revised on 2022. Testing performed by: [facility] [address], Medical Office [facility] [address], [place] [address] Basophil pct 0.7 % [facility] (ERASMO) Comment: Interpretive Data Percent cell count reference ranges are not reported, since discordance with absolute values may lead to misinterpretation of CBC data. Current Interpretive Data was last revised on 2022. Testing performed by: [facility] [address], Medical Office [facility] [address], [place] [address] Blood 08/08/2024 1:55 PM CDT 08/08/2024 2:00 PM CDT us Ashu Arevalo MD LAB BLOOD ORDERABLES Fin al Result OSMIN ESTRADA (ERASMO) 1 [facility] Department [place] [address] * (ABNORMAL) CBC with auto differential (08/08/2024 1:55 PM CDT) WBC 7.3 3.8 - 9.9 K/cumm Comment:Testing performed by : [facility] [address], Medical Office [facility] [address], [place] [address] Hgb 9.1(L) 11.9 - 15.5 g/dL [facility] (ERASMO) Comment:Testing performed by : [facility] [address], Medical Office [facility] [address], [place] [address] Hct 28.7(L) 35.6 - 45.5 % [facility] (ERASMO) Comment:Testing performed by : [facility] [address], Medical Office [facility] [address], [place] [address] Plt 315 150 - 400 K/cumm [facility] (ERASMO) Comment:Testing performed by : [facility] [address], Medical Office [facility] [address], [place] [address] MPV 9.2 9.1 - 12.3 fL [facility] (ERASMO) Comment:Testing performed by : [facility] [address], Medical Office [facility] [address], [place] [address] RBC 3.38(L) 3.90 - 5.20 M/cumm [facility] (ERASMO) Comment:Testing performed by : [facility] [address], Medical Office [facility] [address], [place] [address] MCV 84.9 81.3 - 96.4 fL [facility] (ERASMO) Comment:Testing performed by : [facility] [address], Medical Office [facility] [address], [place] [address] MCH 26.9(L) 27.1 - 33.3 pg [facility] (ERASMO) Comment:Testing performed by : [facility] [address], Medical Office [facility] [address], [place] [address] MCHC 31.7(L) 32.3 - 35.7 g/dL [facility] (ERASMO) Comment:Testing performed by : [facility] [address], Medical Office [address], [place] [address] RDW CV 18.3(H) 11.1 - 14.9 % [facility] (ERASMO) Comment:Testing performed by : [facility] [place] [address], Medical Office [address], [place] [address] RDW SD 58.1(H) 35.7 - 48.1 fL OSMIN ESTRADA (ERASMO) Comment:Testing performed by : [facility] [place] [address], Medical Office [facility] [address], [place] [address] NRBC abs Not Measured 0.00 - 0.01 K/cumm OSMIN ESTRADA (ERASMO) Comment:Testing performed by : [facility] [place] [address], Medical Office [facility] [address], [place] [address] Blood 08/08/2024 1:55 PM CDT 08/08/2024 2:00 PM CDT Ashu Arevalo MD LAB BLOOD ORDERABLES Fin al Result OSMIN ESTRADA (ERASMO) 1 [facility] Department [place] [address] * POCT hemoglobin A1c (04/27/2024 1:05 PM FIRM ADMINISTRATOR) Hemoglobin A1C, POC 5.9 4.0 - 5.6 % Blood 04/27/2024 1:05 PM FIRM ADMINISTRATOR us Inna Tsang NP POINT OF CARE TEST ORDERABLES F inal Result * (ABNORMAL) Albumin Creatinine Ratio, Urine (02/23/2024 12:10 PM CDT) Albumin Ur 1,424.9 mg/L Comment: Interpretive Data No reference range established. Current interpretive data was last revised 2018. Testing performed by: [address] [place] [address] Creatinine Ur 128.1 mg/dL OSMIN ESTRADA (ERASMO) Comment: Interpretive Data No reference range established. Current interpretive data was last revised 2018. Testing performed by: [address], [place]., [address] Albumin Creatinine Ratio, Ur 1,112(H) 1 - 29 mg/g OSMIN ESTRADA (ERASMO) Comment:Testing performed by : [facility], [address] [place] [address]., [address] Urine 02/23/2024 12:1 0 PM CDT 02/23/2024 9:33 PM CDT us Ashu Arevalo MD LAB URINE ORDERABLES Fin al Result OSMIN ESTRADA (ERASMO) 1 [facility] Department [place] [address] * Dexa Axial Skeleton Bone Density 1 or 2 Site (04/03/2023 12:42 PM FIRM ADMINISTRATOR) Anatomical Region Laterality Modality Body N/A Other 04/03/2023 1:05 PM FIRM ADMINISTRATOR Narrative 04/03/2023 1:05 PM FIRM ADMINISTRATOR EXAM DESCRIPTION: DEXA AXIAL SKELETON BONE DENSITY 1 OR MORE SITES REASON FOR STUDY: 67 y/o year old F with given history of: history of AI therapy Osteoporosis screening 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 MF: TOBIN Report ID: [id number] Reading Location: [place] [address] Shaniqua Ellison NP IMHoward DXA PROCEDURES Fi nal Result * Screening Mammogram Right W Wesley Unilateral Only (03/28/2022 2:03 PM FIRM ADMINISTRATOR) Anatomical Region Laterality Modality Breast Right Mammography Narrative 03/28/2022 3:58 PM FIRM ADMINISTRATOR Mammogram Technique: Right Breast Digital Breast Tomosynthesis, Unilateral C-view 2D Screening mammogram. Views obtained: bilateral craniocaudal and bilateral mediolateral oblique. Computer Aided Detection was performed. Mammogram Findings: The present examination has been compared to prior imaging studies performed on 02/16/2020, at [facility]. [facility] on 04/17/2020 and 05/09/2020, and at [facility] on 03/22/2021. The breast is heterogeneously [...] prior imaging studies performed on 02/16/2020, at [facility]. [facility] on 04/17/2020 and 05/09/2020, and at [facility] on 03/22/2021. The breast is heterogeneously [...] Most Recently Relevant to Health Maintenance Insurance [facility] MEDICARE ADVANTAGE [id number] MEDICARE ADVANTAGE [id number] MEDICARE ADVANTAGE IDPA Advance Directives For more information, please contact: [phone] * Full Code (Latest Code Status on [...] 8:34 AM 10/18/2018 8:35 AM Care Teams Reporting Specialist Relationship Specialty Start Date End Date Vijay Truong MD [address] [place] [address] PCP - General 08/08/16 Rubén Miranda MD PhD [address] [place] [address] Radiation Oncologist Radiation Oncology 07/27/20 Lila James MD [address] [place] [address] Referring Physician Surgical Oncology 07/27/20 [place] [address] [place] [address] Referring Physician Psychiatry & Neurology 02/05/22 Ash Fraga MD [address] [place] [address] Medical Oncologist/Music Coordinator Hematology and Oncology 06/11/22
--- OUTSIDE RECORDS SUMMARY | 2024-10-14 13:06 | XMS_ITS | Clinical Summary ---
Author Organization [facility] Facility Address [address] [place] [address] Care Team Providers Care Tender Coordinator Name Role Phone Vijay Truong Primary Care Provider [phone] Allergies No known active allergies Medications * [...] & Plan: Managed by Dr. [facility] at [facility], following up every 3 months. Continues seeing therapist once monthly. Discussed increasing frequency of counseling to once weekly if able. PHQ today 21. Discussed importance of regular exercise/ healthy diet and general healthy lifestyle to improve moods. Lives at home with son and two grandsons. Reports supportive family. Denies any SI/HI. Encounters Date Type Department Care Team Description 08/19/2024 12:30 PM CDT Office Visit [email or web address] [address] [place] [address] [phone] Ashu Arevalo MD Chronic kidney disease stage 4 (HCC) (Primary Dx) 08/08/2024 Office Communication [facility] [address] [place] [phone] Ashu Arevalo MD from Last 3 Months Immunizations Immunization Administration Dates Next Due Influenza, MDCK, PF, [...] Date Smoking Tobacco: Former Cigarettes Q uit: 2008 Smokeless Tobacco: Never Tobacco Cessation:Counseling Given: [...] 4:37 PM CDT Height 167.6 cm (5' 6) 08/10/2023 2:03 PM CDT Body Mass Index 23.57 08/10/2023 2:03 PM CDT Plan of Treatment Upcoming Encounters Date Type Department Care Team (Late st Contact Info) Description 12/09/2024 11:30 AM CDT Office Visit [facility], [facility] [address] [facility] [address] [place] [id number] Ashu Arevalo MD 2 [facility] [address] [place] [address] Health Maintenance Due Date Last Done Comments Breast Cancer Screening 1955 Colorectal Cancer Screening: Annual FOBT 2006 Colorectal Cancer Screening: Sigmoidoscopy 2006 Pneumococcal Vaccine: 50+ Years (2 of 2 - PPSV23, PCV20, or PCV21) 04/08/2016 02/12/2016, 12/20/2012, 12/20/2012 Diabetes: Ophthalmology Exam 12/13/2021 Diabetes: Pedal Pulse Checked 12/13/2021 Diabetes: Sensory Foot Exam 12/13/2021 Diabetes: Visual Foot Exam 12/13/2021 Diabetes: Hemoglobin A1C 07/26/202404/27/ 024, 12/23/2023, 04/06/2023, Additional history exists Colorectal Cancer Screening: Colonoscopy 10/18/2028 10/18/2018 Pneumococcal Vaccine: Peds (0 to 5 Years) and At-Risk Patients (6 to 49 Years) Discontinued 02/12/2016, 12/20/2012, 12/20/2012 Influenza Vaccine Completed 03/17/2024, , 01/17/2022, Additional history exists Hepatitis B Vaccine Aged Out No longe r eligible based on patient's age to complete this topic Procedures Procedure Name Priority Date/Time Associated Diagnosis Comments EXT RESULT ENTRY Routine 04/06/2023 from Last 3 Months or Most Recently Relevant to Health Maintenance Results * (ABNORMAL) EXT RESULT ENTRY (04/06/2023) Hemoglobin A1C 6.1(A) 4.0 - 6.0 04/06/2023 us Historical Provider LAB BLOOD ORDERABLES Jess l Result from Last 3 Months or Most Recently Relevant to Health Maintenance Insurance [facility] Medicare Care Teams Tender Coordinator Relationship Specialty Start Date [place] [address] PCP - General Internal Medicine 12/13/21
--- OUTSIDE RECORDS SUMMARY | 2024-10-14 13:06 | XMS_ITS | Encounter Summary ---
Author Organization [facility] Healthcare Address [address] [place] [address] Care Team Providers Care Yoga Coordinator Name Role Phone Vijay Truong MD Primary Care Provider [phone] Rubén Miranda MD PhD Unavailable [phone] Lila James MD Unavailable [phone] Emile Berger MD Unavailable [phone] Ash Fraga MD Unavailable [phone] Reason for Visit * Reason Onset Date Comments Medical Records Request 09/19/2024 Encounter Details Date Type Department Care Team (Late st Contact Info) Description 09/19/2024 Telephone [facility] [address] [place] [address] Vijay Truong MD [address] [place] [address] Medical Records Request Social History Tobacco Use Types Packs/Day Years [...] week 06/26/2022 How often do you attend [facility] or judaism services? More than 4 times per year 06/26/2022 Do you belong to any clubs o r organizations such as yazidi groups, unions, fraternal or athletic groups, or [...] place to sleep or slept in a usp (including now)? 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 Does the message need to be routed? Yes-Action Needed documented in this encounter Plan of Treatment Not on file documented as of this encounter Visit Diagnoses Not on filedocumented in this encounter Care Teams Yoga Coordinator Relationship Specialty Start Date End [place] [address] PCP - General 08/08/16 Rubén Miranda MD PhD [address] [place] [address] Radiation Oncologist Radiation Oncology 07/27/20 Lila James MD [address] [place] [address] Referring Physician Surgical Oncology 07/27/20 [place] [address] [place] [address] Referring Physician Psychiatry & Neurology 02/05/22 Ash Fraga MD [address] [place] [address] Medical Oncologist/Bit Grinder Hematology and Oncology 06/11/22 documented as of this encounter
--- OUTSIDE RECORDS SUMMARY | 2024-10-14 13:06 | XMS_ITS | Continuity of Care Document ---
Author Organization [facility] Address [address] [place] [phone] Phone Care Team Providers Care Dairy Chemist Name Role Phone Joaquín CHING, Elsa Unavailable [...] Diagnoses Date Provider Providers Copied on Encounter [facility], [address] [place] [address], [id number], tel:[phone] [facility] No Information Joaquín Hunter. [address] [place] [address], [id number], . tel:[phone] [facility], [address] [place] [address], [id number], tel:[phone] [facility] Joaquín Wrightca. [address] [place] [address], [id number], . tel:[phone] Referring Provider: Ashu Yusuf, [address] [place] [address] [address], [place], [address]. tel:[phone] [facility], [address] [place] [address], [id number], tel:[phone] [facility] Joaquín Wrightca. [address] [place] [address], [id number], . tel:[phone] Referring Provider: Ashu Yusuf, [address] [facility] [address], [place], [address]. tel:[phone] As per patient privacy policy some of the clinical information may not be visible. Family History Family Member Type Diagnosis Age At Onset No Information Payers Payer name Insurance type Covered democrat ID Authoriza tion(s) [facility] [employer] Advantage CI [id number] Social History Type Description Quantity Date Captured Comments Sex Female Smoking Status No Information Sexual Orientation Straight or heterosexual Gender Identity Female Chief Complaint And Reason For Visit No Information Reason For Referral Reason For Referral No Information Plan Of Treatment Date Type Action Status Future Order: Radiology Order Up per Body Flouroscopy ([id number]), Ordered on: Ordered History Of Present Illness Encounter Date Complaint History Of Prese nt Illness No Information Functional Status Date Functional Assessmen t No Information Instructions Date Instruction Additional Infor mation No Information Assessments Type Assessment Date No Information Patient Care Teams Name Effective Dates (start - stop) Status Members No Information
--- OUTSIDE RECORDS SUMMARY | 2024-10-14 13:29 | XMS_ITS ---
Author Organization [facility] Address [address] [place] [address] Care Team Providers Care Public Speaking Coach Name Role Phone Vijay Truong MD Primary Care Provider [phone] Rubén Miranda MD PhD Unavailable [phone] Lila James MD Unavailable [phone] Emile Berger MD Unavailable [phone] Ash Fraga MD Unavailable [phone] Active Problems Problem Noted Date Diagnosed Date Screening mammogram for breast cancer 09/15/2024 Assessment & Plan (09/15/2024 1:30 PM CDT): Mammogram ordered. Will plan accordingly once results are received. Lung nodule 03/17/2024 Assessment & Plan (03/17/2024 7:38 AM [employer]): Stable. Following with pulmonology and will continue to do so. Hypertension associated with diabetes 03/17/2024 Assessment & Plan (09/15/2024 1:29 PM CDT): Well controlled on lisinopril. Will continue to monitor. Assessment & Plan (04/27/2024 1:21 PM [employer]): This is a chronic condition which is not at goal on arrival. At goal after rest. Goal is less than 140/90 Continue lisinopril, Lasix Encouraged to monitor weight and B/P at home. Assessment & Plan (03/17/2024 7:39 AM [employer]): Normotensive. Continue lisinopril. Will continue to monitor. Colon cancer screening 03/17/2024 Assessment & Plan (03/17/2024 7:39 AM [employer]): Referral to GI for screening colonoscopy placed History of colonic polyps 03/17/2024 Encounter for screening colonoscopy 03/17/2024 Anemia of chronic renal failure, stage 4 (severe ) 03/07/2024 Assessment & Plan (09/15/2024 1:29 PM CDT): Renal function stable. Anemia improving. Continues following closely with Nephrology. Assessment & Plan (03/17/2024 7:36 AM [employer]): Stable. Following with Nephrology and will continue [...] Lasix Assessment & Plan (04/06/2023 3:42 PM [employer]): This is a chronic condition which is [...] atorvastatin. Assessment & Plan (06/19/2022 2:08 PM [employer]): This is a chronic condition which is [...] 01/17/2022 Assessment & Plan (03/17/2024 7:36 AM [employer]): Visit preventive in nature. We reviewed medications, [...] 21 Assessment & Plan (04/09/2021 5:57 PM [employer]): Vaccine given in office today. Reviewed possible [...] cooking Assessment & Plan (05/16/2022 5:25 PM [employer]): Weights stable. Working on diet and exercise, previously riding stationary bike. Assessment & Plan (01/17/2022 10:16 AM CDT): Discussed healthy diet and importance of regular physical activity. Assessment & Plan (10/13/2021 1:35 PM CDT): Congratulated patient on her efforts to improve diet. Discussed healthy diet and importance of regular physical activity. Assessment & Plan (07/11/2021 11:00 AM [employer]): Discussed healthy diet and importance of regular physical activity. Assessment & Plan (04/09/2021 5:57 PM [employer]): Discussed healthy diet and importance of regular [...] bedtime. Assessment & Plan (05/17/2020 1:10 PM [employer]): Omeprazole refilled. Reviewed provocative foods to avoid: caffeine, citrus, ETOH, carbonated drinks, fried/fatty/fast foods & rich/creamy sauces. Reviewed diet/exercise recommendations: 20-30min physicaly activity daily at minimum. Reviewed med Ses & scheduling. Weight loss will help improve GERD sxs. Keep HOB elevated 30 degrees & not eat 2-3 hrs before bedtime. Regional lymph node metastasis present Assessment & Plan (05/17/2020 1:09 PM [employer]): L axillary lymph node. Anxious re: new L breast ca dx. Anxious re: pending treatments. Discussed at length during appt. Copies of recent screening/diagnostic mamm & ultrasound of L breast given to mrs Mejia. Discussed lymph node involvement. Referral placed to Dr James at [facility]. Aware that her office will call [...] from 05/09/2020:Stage IIA(cT2, cN1(f), cM0, G1, ER+, IA+, HER2-) - Signed by Rubén Miranda MD PhD on 07/27/2020 Pathologic stage from 07/02/2020:Stage IA(pT2, pN1a(sn), cM0, G1, ER+, IA+, HER2- ) - Signed by Rubén Miranda MD PhD on 07/27/2020 Assessment & Plan (01/17/2022 10:19 AM CDT): Assessment & Plan (04/09/2021 6:01 PM [employer]): Follows with oncology, continues letrozone. To have [...] necessary. Assessment & Plan (05/17/2020 1:08 PM [employer]): Anxious re: new L breast ca dx. Anxious re: pending treatments. Discussed at length during appt. Copies of recent screening/diagnostic mamm & ultrasound of L breast given to mrs Mejia. Discussed lymph node involvement. Referral placed to Dr James at [facility] [place]. Aware that her office will call [...] continue. Assessment & Plan (04/27/2024 1:21 PM [employer]): This is a chronic condition which is at goal . Goal is LDL less than 70 Continue atorvastatin Encouraged to eat healthy, include fresh fruits and vegetables daily and avoid eating fried foods more than once per week. Assessment & Plan (03/17/2024 7:36 AM [employer]): Stable. Continue atorvastatin. Tolerating without side effects. Will continue to monitor. Assessment & Plan (01/13/2024 12:49 PM CDT): This is a chronic condition which is at goal . Goal is LDL less than 70 Continue atorvastatin Encouraged to eat healthy, include fresh fruits and vegetables daily and avoid eating fried foods more than once per week. Assessment & Plan (04/06/2023 3:43 PM [employer]): This is a chronic condition which is [...] prescribed. Assessment & Plan (06/19/2022 2:10 PM [employer]): This is a chronic condition which is not at goal of LDL less than 70 Continue atorvastatin Encouraged to eat healthy, include fresh fruits and vegetables daily and avoid eating fried foods more than once per week. Encouraged to take medications as prescribed. Assessment & Plan (05/16/2022 5:17 PM [employer]): Continue current regimen. Assessment & Plan (01/17/2022 10:16 AM CDT): 01/10/22 TC 186 TRG 421 HDL 29 LDL 90 Continue current regimen, recommended fish oil supplementation and following low fat diet. Will repeat labs prior to next office visit. Assessment & Plan (10/13/2021 1:35 PM CDT): Continue atorvastatin daily. Assessment & Plan (07/11/2021 11:16 PM [employer]): Reviewed previous lipid panel. Doing well on atorvastatin 40 mg daily, denies any medication side effects. Assessment & Plan (04/09/2021 6:00 PM [employer]): Results for orders placed or performed in [...] & Plan (08/16/2020 11:24 AM CDT): 12/22/18 DB=906 HDL=43 EY=330 LDL=88 TC/HDL=4.74 07/04/19 TC=78 HDL=32 TP=672 APG=790 TC/HDL=10.3 11/07/19 HD=248 DL=27 BS=490 GEF=854 CALC TC/HDL=12.0 to lab 02/09/20 WB=441 HDL=38 NE=590 LDL=92 TC/HLD=5.0 The 10-year ASCVD risk score ([place] BARRY Jr., et al., 2013) is: 11.5% [...] flags. Assessment & Plan (05/17/2020 1:10 PM [employer]): We will check labs and make adjustments [...] 10/25/21. Assessment & Plan (05/16/2022 5:23 PM [employer]): Following with nephrology. Discussed importance of well controlled blood pressure and diabetes management. Assessment & Plan (01/17/2022 9:44 AM CDT): 09/18/20 GFR=17 11/08/20 GFR=26 02/14/21 GFR=22 10/01/21 GFR=27 01/10/22 GFR=20 Following with nephrology. Assessment & Plan (10/13/2021 1:41 PM CDT): 09/18/20 GFR=17 11/08/20 GFR=26 02/14/21 GFR=22 10/01/21 GFR=27 Scheduled with nephrology 10/25/21. Assessment & Plan (04/09/2021 5:59 PM [employer]): 09/18/20 GFR=17 11/08/20 GFR=26 02/14/21 GFR=22 Updated [...] function. Assessment & Plan (05/17/2020 1:11 PM [employer]): GFR 11/07/19=35 GFR 02/09/20=35. Has been stable. [...] 11/06/2019 Assessment & Plan (05/16/2022 5:23 PM [employer]): Lab Results Component Value Date HGBA1C 9.9 [...] 04/09/2021 Assessment & Plan (07/11/2021 11:17 PM [employer]): Lab Results Component Value Date HGBA1C 10.5 07/11/2021 HGBA1C 9.7 04/09/2021 HGBA1C 11.7 01/07/2021 Patient agreeable to meet with certified adapted physical educator to discuss healthy food choices to improve blood glucose. Referral placed. Will start basal insulin 10 units nightly, reviewed medication administration, follow up in 3 months and bring copy of blood sugar log to next apt. Reviewed s/s of hypo/hypergylcemia. Assessment & Plan (04/09/2021 6:08 PM [employer]): Lab Results Component Value Date HGBA1C 9.7 [...] month Assessment & Plan (05/17/2020 1:09 PM [employer]): Lab Results Component Value Date HGBA1C 9.6 [...] evaluation. Last eye exam december 2018 at [facility]. Letter sent to get copy of results [...] 04/09/2021 Assessment & Plan (04/27/2024 1:21 PM [employer]): This is a chronic condition which is [...] lisinopril. Assessment & Plan (03/17/2024 7:35 AM [employer]): Improving. Continue following with endocrinology. Red flags reviewed. Hypertensive disorder 07/04/2019 Overview (05/19/2023): Last Assessment & Plan: Stable; continue current medication regimen. Assessment & Plan (04/06/2023 3:43 PM [employer]): This is a chronic condition which is [...] prescribed. Assessment & Plan (06/19/2022 2:09 PM [employer]): This is a chronic condition which is at goal of less than 140/90 Hypotension 94/48 Personally reviewed labs. Decrease lisinopril to 10 mg p.o. daily Encouraged to take medications as prescribed. Assessment & Plan (05/16/2022 5:23 PM [employer]): Blood pressure well controled today. No changes in current regimen. Assessment & Plan (01/17/2022 10:14 AM CDT): Condition is stable Discussed/ordered labs, encouraged healthy, low carbohydrate lifestyle and at least 150min/week of exercise, continue on lisinopril 20 mg daily. BP checked by myself 118/80 Assessment & Plan (10/13/2021 1:41 PM CDT): Stable; continue current medication regimen. Assessment & Plan (07/11/2021 11:17 PM [employer]): BP well controlled today. No changes in current medication regimen. Assessment & Plan (04/09/2021 6:10 PM [employer]): Patient encouraged to take BP medication as [...] received. Assessment & Plan (05/17/2020 1:09 PM [employer]): Does not check BP at home. The [...] (09/29/2018): Added automatically from request for surgery [id number] Fibromyalgia 01/01/2017 Assessment & Plan (03/17/2024 7:36 AM [employer]): Stable on duloxetine. No changes. Will continue to monitor. Primary osteoarthritis involving multiple joints 01/01/2017 Major depressive disorder 01/01/2017 Assessment & Plan (07/11/2021 11:04 AM [employer]): Managed by Dr. Berger at [facility], following up every 3 months. Continues seeing therapist once monthly. Discussed increasing frequency of counseling to once weekly if able. PHQ today 21. Discussed importance of regular exercise/ healthy diet and general healthy lifestyle to improve moods. Lives at home with son and two grandsons. Reports supportive family. Denies any SI/HI. Assessment & Plan (04/09/2021 10:47 AM [employer]): PHQ=19 (worsening with breast CA diagnosis) Hydroxyzine 25mg q6hr prn, risperidone 2mg nightly, trazodone 100mg nightly, duloxetine DR 60mg daily, amitriptyline 25mg nightly. Managed by Dr Berger at [facility]. Sees him q3mos. Also sees therapist Kay at [facility]. Denies suicidal/homicidal ideation. Assessment & Plan (08/16/2020 11:22 AM CDT): Hydroxyzine 25mg q6hr prn, risperidone 2mg nightly, trazodone 100mg nightly, duloxetine DR 60mg daily, amitriptyline 25mg nightly. Managed by Dr Berger at [facility]. Doing phone visits with him q3mos. Also with therapist Kay at [facility]. Reports good control of depression w/current regimen. No changes to be made at this time. Reviewed med Ses & scheduling. Reviewed red flags. Assessment & Plan (02/09/2020 9:30 AM CDT): Following w/Dr Berger at [facility] every 3 months. following w/monthly therapy appts w/Mellisa Davidson at [facility]. Verified current medications. Will fax lab results to Dr Berger at [facility] once completed. Reports good control of depression w/current regimen. No changes to be made at this time. Reviewed med Ses & scheduling. Reviewed red flags. Assessment & Plan (11/07/2019 10:00 AM CDT): Followed by Dr Berger at [facility]. Reports good control of depression w/current [...] 21 Assessment & Plan (05/17/2020 1:11 PM [employer]): Discussed healthy diet and importance of regular [...] healthier, we can set up appointment with forestry extension specialist/automobile service writer. 3. Have an active lifestyle, strive for [...] & Plan (11/07/2019 10:01 AM CDT): 12/22/18 BB=658 HDL=43 RB=349 LDL=88 TC/HDL=4.74 07/04/19 TC=78 HDL=32 IC=251 ZOX=081 TC/HDL=10.3 11/07/19 TP=937 DL=27 SY=926 CIH=882 CALC TC/HDL=12.0 Copy of today's lipid panel given to mrs Mjeia. Will have tests verified/repeated at lab today. Aware that atorvastatin will need increased if lipid panel elevated.
--- OUTSIDE RECORDS SUMMARY | 2024-10-14 13:29 | XMS_ITS | Encounter Summary ---
Author Organization [facility] Address [address] [place] [address] Care Team Providers Care Tanning Wheel Filler Name Role Phone Vijay Truong MD Primary Care Provider [phone] Rubén Miranda MD PhD Unavailable [phone] Lila James MD Unavailable [phone] Emile Berger MD Unavailable [phone] Ash Fraga MD Unavailable [phone] Encounter Details Date Type Department Care Team (Late st Contact Info) Description 10/13/2024 Orders Only [facility] [address] [place] [address] ProviderRadha MD [address] [place], [place] [id number] Social History Tobacco Use Types Packs/Day Years [...] often do you attend chur ch or protestant services? More than 4 times per year 06/26/2022 Do you belong to any clubs o r organizations such as taoism groups, unions, fraternal or athletic groups, or [...] place to sleep or slept in a prison (including now)? 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 Gender Identity Not on file Sexual Orientation [...] on filedocumented in this encounter Care Teams Tanning Wheel Filler Relationship Specialty Start Date End Date Vijay Truong MD [address] [place] [address] PCP - General 08/08/16 Rubén Miranda MD PhD [address] [place] [address] Radiation Oncologist Radiation Oncology 07/27/20 [place] [address] [id number] Referring Physician Surgical Oncology 07/27/20 Emile Berger MD [address] [place] [address] Referring Physician Psychiatry & Neurology 02/05/22 Ash Fraga MD [address] [place] [address] Medical Oncologist/School Bus Driver/Teacher Assistant Hematology and Oncology 06/11/22 documented as of this encounter
--- OUTSIDE RECORDS SUMMARY | 2024-10-14 13:29 | XMS_ITS | Continuity of Care Document ---
Author Organization [facility] Address [address] [place] [phone] Phone Care Team Providers Care Winchman/Crane Operator Name Role Phone Joaquín CHING, Elsa Unavailable [...] Diagnoses Date Provider Providers Copied on Encounter [facility], [address] [place] [address], [id number], tel:[phone] [facility] No Information Joaquín Hunter. [address] [place] [address], [id number], . tel:[phone] [facility], [address] [place] [address], [id number], tel:[phone] [facility] Joaquín Wrightca. [address] [place] [address], [id number], . tel:[phone] Referring Provider: Ashu Yusuf, [address] [place] [address] [address], [place], [address]. tel:[phone] [facility], [address] [place] [address], [id number], tel:[phone] [facility] Joaquín Wrightca. [address] [place] [address], [id number], . tel:[phone] Referring Provider: Ashu Yusuf, [address] [facility] [address], [place], [address]. tel:[phone] As per patient privacy policy some of the clinical information may not be visible. Family History Family Member Type Diagnosis Age At Onset No Information Payers Payer name Insurance type Covered green party ID Authoriza tion(s) [facility] [employer] CI [id number] Social History Type Description Quantity Date Captured Comments Sex Female Smoking Status No Information Sexual Orientation Straight or heterosexual Gender Identity Female Chief Complaint And Reason For Visit No Information Reason For Referral Reason For Referral No Information Plan Of Treatment Date Type Action Status Future Order: Radiology Order Up per Body Flouroscopy ([id number]), Ordered on: Ordered History Of Present Illness Encounter Date Complaint History Of Prese nt Illness No Information Functional Status Date Functional Assessmen t No Information Instructions Date Instruction Additional Infor mation No Information Assessments Type Assessment Date No Information Patient Care Teams Name Effective Dates (start - stop) Status Members No Information
--- OUTSIDE RECORDS SUMMARY | 2024-10-14 13:29 | XMS_ITS | Referral Summary ---
Author Organization [facility] Address [address] [place] [id number] Care Team Providers Care Hospice Administrator Name Role Phone Vijay Trunog MD Primary Care Provider [phone] Rubén Miranda MD PhD Unavailable [phone] Lila James MD Unavailable [phone] Emile Berger MD Unavailable [phone] Ash Fraga MD Unavailable [phone] Encounters Date Type Department Care Team Description 10/13/2024 Orders Only [facility] [address] [phone] Radha Rodriges MD 09/19/2024 Telephone [facility] [address] [address] Vijay Truong MD Medical Records Request 09/15/2024 12:30 PM CDT Office Visit [facility] [address] [phone] Nidia Rojas NP Dyslipidemia associated with type 2 diabetes mellitus (HCC) (Primary Dx); Screening mammogram for breast cancer; Hypertension associated with diabetes (HCC); Anemia of chronic renal failure, stage 4 (severe) (HCC) 09/12/2024 8:55 AM CDT [address] [address] Dyslipidemia associated with type 2 diabetes mellitus (HCC); Hypertension associated with diabetes (HCC) 09/09/2024 Telephone [facility] [address] [phone] Inna Lugo MA Labs Requested for Appointment 08/28/2024 Results Follow-Up [facility] Gastroenterology at [address] [place] [address] Nathan Brooks, Surgical pathology 08/24/2024 8:03 AM CDT Anesthesia Event [address] [address] Piter Spencer, 08/24/2024 7:30 AM CDT - 08/24/2024 8:00 AM CDT Surgery [address] [address] Nathan Brooks, COLON BIOPSY 08/24/2024 6:00 AM CDT - 08/24/2024 9:11 AM CDT Hospital Encounter [address] [address] Nathan Brooks, History of colonic polyps; Encounter for screening colonoscopy Discharge Disposition: Discharge to home or self care 08/17/[address] [place] [phone] Ashu Arevalo MD 08/09/[address] [address] Ashu Arevalo MD 08/08/2024 2:30 PM CDT Clinical Support [address] [place] [phone] Anemia of chronic renal failure, stage 4 (severe) (HCC) (Primary Dx) 08/08/2024 2:15 PM CDT Lab [address] [address] Anemia of chronic renal failure, unspecified CKD stage (Primary Dx) 08/03/2024 Orders Only [facility] [address] [place] [address] Vijay Truong MD 08/03/2024 Telephone [facility] [address] [place] [address] Vijay Truong MD Medical Question/Miscellan eous from Last 3 Months Allergies No known active allergies Medications blood-glucose meter kit Use to test blood sugar once daily. 1 each 04/07/20 18 Active hydrOXYzine (VISTARIL) 50 mg capsuleIndications:T ype 2 diabetes mellitus with hyperglycemia, with long-term current use of insulin ([facility]) 0 23 Active lancets miscIndications:Type 2 diabetes mellitus with peripheral neuropathy ([facility]) 1 each by other route as directed [...] of insulin, macular edema presence unspecified ([facility]) Use to inject once nightly. E11.65 100 [...] with long-term current use of insulin ([facility]) Inject 18 Units under the skin nightly [...] 03/17/2024 Assessment & Plan (03/17/2024 7:38 AM SANDFILL OPERATOR SURFACE): Stable. Following with pulmonology and will continue to do so. Hypertension associated with diabetes 03/17/2024 Assessment & Plan (09/15/2024 1:29 PM CDT): Well controlled on lisinopril. Will continue to monitor. Assessment & Plan (04/27/2024 1:21 PM SANDFILL OPERATOR SURFACE): This is a chronic condition which is not at goal on arrival. At goal after rest. Goal is less than 140/90 Continue lisinopril, Lasix Encouraged to monitor weight and B/P at home. Assessment & Plan (03/17/2024 7:39 AM SANDFILL OPERATOR SURFACE): Normotensive. Continue lisinopril. Will continue to monitor. Colon cancer screening 03/17/2024 Assessment & Plan (03/17/2024 7:39 AM SANDFILL OPERATOR SURFACE): Referral to GI for screening colonoscopy placed History of colonic polyps 03/17/2024 Encounter for screening colonoscopy 03/17/2024 Anemia of chronic renal failure, stage 4 (severe ) 03/07/2024 Assessment & Plan (09/15/2024 1:29 PM CDT): Renal function stable. Anemia improving. Continues following closely with Nephrology. Assessment & Plan (03/17/2024 7:36 AM SANDFILL OPERATOR SURFACE): Stable. Following with Nephrology and will continue [...] Lasix Assessment & Plan (04/06/2023 3:42 PM SANDFILL OPERATOR SURFACE): This is a chronic condition which is [...] atorvastatin. Assessment & Plan (06/19/2022 2:08 PM SANDFILL OPERATOR SURFACE): This is a chronic condition which is [...] goal <30 treated with lisinopril Personally reviewed [facility] GFR- 16. Follows with Dr. Baker for [...] 01/17/2022 Assessment & Plan (03/17/2024 7:36 AM SANDFILL OPERATOR SURFACE): Visit preventive in nature. We reviewed medications, [...] 21 Assessment & Plan (04/09/2021 5:57 PM SANDFILL OPERATOR SURFACE): Vaccine given in office today. Reviewed possible [...] cooking Assessment & Plan (05/16/2022 5:25 PM SANDFILL OPERATOR SURFACE): Weights stable. Working on diet and exercise, previously riding stationary bike. Assessment & Plan (01/17/2022 10:16 AM CDT): Discussed healthy diet and importance of regular physical activity. Assessment & Plan (10/13/2021 1:35 PM CDT): Congratulated patient on her efforts to improve diet. Discussed healthy diet and importance of regular physical activity. Assessment & Plan (07/11/2021 11:00 AM SANDFILL OPERATOR SURFACE): Discussed healthy diet and importance of regular physical activity. Assessment & Plan (04/09/2021 5:57 PM SANDFILL OPERATOR SURFACE): Discussed healthy diet and importance of regular [...] bedtime. Assessment & Plan (05/17/2020 1:10 PM SANDFILL OPERATOR SURFACE): Omeprazole refilled. Reviewed provocative foods to avoid: caffeine, citrus, ETOH, carbonated drinks, fried/fatty/fast foods & rich/creamy sauces. Reviewed diet/exercise recommendations: 20-30min physicaly activity daily at minimum. Reviewed med Ses & scheduling. Weight loss will help improve GERD sxs. Keep HOB elevated 30 degrees & not eat 2-3 hrs before bedtime. Regional lymph node metastasis present Assessment & Plan (05/17/2020 1:09 PM SANDFILL OPERATOR SURFACE): L axillary lymph node. Anxious re: new L breast ca dx. Anxious re: pending treatments. Discussed at length during appt. Copies of recent screening/diagnostic mamm & ultrasound of L breast given to mrs Perez. Discussed lymph node involvement. Referral placed to Dr James at [facility]. Aware that her office will [...] from 05/09/2020:Stage IIA(cT2, cN1(f), cM0, G1, ER+, MD+, HER2-) - Signed by Rubén Miranda MD PhD on 07/27/2020 Pathologic stage from 07/02/2020:Stage IA(pT2, pN1a(sn), cM0, G1, ER+, MD+, HER2- ) - Signed by Rubén Miranda MD PhD on 07/27/2020 Assessment & Plan (01/17/2022 10:19 AM CDT): Assessment & Plan (04/09/2021 6:01 PM SANDFILL OPERATOR SURFACE): Follows with oncology, continues letrozone. To have [...] necessary. Assessment & Plan (05/17/2020 1:08 PM SANDFILL OPERATOR SURFACE): Anxious re: new L breast ca dx. Anxious re: pending treatments. Discussed at length during appt. Copies of recent screening/diagnostic mamm & ultrasound of L breast given to mrs Perez. Discussed lymph node involvement. Referral placed to Dr James at [facility]. Aware that her office will [...] continue. Assessment & Plan (04/27/2024 1:21 PM SANDFILL OPERATOR SURFACE): This is a chronic condition which is at goal . Goal is LDL less than 70 Continue atorvastatin Encouraged to eat healthy, include fresh fruits and vegetables daily and avoid eating fried foods more than once per week. Assessment & Plan (03/17/2024 7:36 AM SANDFILL OPERATOR SURFACE): Stable. Continue atorvastatin. Tolerating without side effects. Will continue to monitor. Assessment & Plan (01/13/2024 12:49 PM CDT): This is a chronic condition which is at goal . Goal is LDL less than 70 Continue atorvastatin Encouraged to eat healthy, include fresh fruits and vegetables daily and avoid eating fried foods more than once per week. Assessment & Plan (04/06/2023 3:43 PM SANDFILL OPERATOR SURFACE): This is a chronic condition which is [...] prescribed. Assessment & Plan (06/19/2022 2:10 PM SANDFILL OPERATOR SURFACE): This is a chronic condition which is not at goal of LDL less than 70 Continue atorvastatin Encouraged to eat healthy, include fresh fruits and vegetables daily and avoid eating fried foods more than once per week. Encouraged to take medications as prescribed. Assessment & Plan (05/16/2022 5:17 PM SANDFILL OPERATOR SURFACE): Continue current regimen. Assessment & Plan (01/17/2022 10:16 AM CDT): 01/10/22 TC 186 TRG 421 HDL 29 LDL 90 Continue current regimen, recommended fish oil supplementation and following low fat diet. Will repeat labs prior to next office visit. Assessment & Plan (10/13/2021 1:35 PM CDT): Continue atorvastatin daily. Assessment & Plan (07/11/2021 11:16 PM SANDFILL OPERATOR SURFACE): Reviewed previous lipid panel. Doing well on atorvastatin 40 mg daily, denies any medication side effects. Assessment & Plan (04/09/2021 6:00 PM SANDFILL OPERATOR SURFACE): Results for orders placed or performed in [...] & Plan (08/16/2020 11:24 AM CDT): 12/22/18 HN=156 HDL=43 MC=641 LDL=88 TC/HDL=4.74 07/04/19 TC=78 HDL=32 AB=279 NKU=988 TC/HDL=10.3 11/07/19 GR=539 DL=27 EP=052 UKP=272 CALC TC/HDL=12.0 to lab 02/09/20 AP=604 HDL=38 OA=701 LDL=92 TC/HLD=5.0 The 10-year ASCVD risk score [...] flags. Assessment & Plan (05/17/2020 1:10 PM SANDFILL OPERATOR SURFACE): We will check labs and make adjustments [...] 10/25/21. Assessment & Plan (05/16/2022 5:23 PM SANDFILL OPERATOR SURFACE): Following with nephrology. Discussed importance of well controlled blood pressure and diabetes management. Assessment & Plan (01/17/2022 9:44 AM CDT): 09/18/20 GFR=17 11/08/20 GFR=26 02/14/21 GFR=22 10/01/21 GFR=27 01/10/22 GFR=20 Following with nephrology. Assessment & Plan (10/13/2021 1:41 PM CDT): 09/18/20 GFR=17 11/08/20 GFR=26 02/14/21 GFR=22 10/01/21 GFR=27 Scheduled with nephrology 10/25/21. Assessment & Plan (04/09/2021 5:59 PM SANDFILL OPERATOR SURFACE): 09/18/20 GFR=17 11/08/20 GFR=26 02/14/21 GFR=22 Updated [...] function. Assessment & Plan (05/17/2020 1:11 PM SANDFILL OPERATOR SURFACE): GFR 11/07/19=35 GFR 02/09/20=35. Has been stable. [...] 11/06/2019 Assessment & Plan (05/16/2022 5:23 PM SANDFILL OPERATOR SURFACE): Lab Results Component Value Date HGBA1C 9.9 [...] 04/09/2021 Assessment & Plan (07/11/2021 11:17 PM SANDFILL OPERATOR SURFACE): Lab Results Component Value Date HGBA1C 10.5 07/11/2021 HGBA1C 9.7 04/09/2021 HGBA1C 11.7 01/07/2021 Patient agreeable to meet with certified breastfeeding educator to discuss healthy food choices to improve blood glucose. Referral placed. Will start basal insulin 10 units nightly, reviewed medication administration, follow up in 3 months and bring copy of blood sugar log to next apt. Reviewed s/s of hypo/hypergylcemia. Assessment & Plan (04/09/2021 6:08 PM SANDFILL OPERATOR SURFACE): Lab Results Component Value Date HGBA1C 9.7 [...] month Assessment & Plan (05/17/2020 1:09 PM SANDFILL OPERATOR SURFACE): Lab Results Component Value Date HGBA1C 9.6 [...] evaluation. Last eye exam december 2018 at [facility]. Letter sent to get copy of [...] 04/09/2021 Assessment & Plan (04/27/2024 1:21 PM SANDFILL OPERATOR SURFACE): This is a chronic condition which is [...] lisinopril. Assessment & Plan (03/17/2024 7:35 AM SANDFILL OPERATOR SURFACE): Improving. Continue following with endocrinology. Red flags reviewed. Hypertensive disorder 07/04/2019 Overview (05/19/2023): Last Assessment & Plan: Stable; continue current medication regimen. Assessment & Plan (04/06/2023 3:43 PM SANDFILL OPERATOR SURFACE): This is a chronic condition which is [...] prescribed. Assessment & Plan (06/19/2022 2:09 PM SANDFILL OPERATOR SURFACE): This is a chronic condition which is at goal of less than 140/90 Hypotension 94/48 Personally reviewed labs. Decrease lisinopril to 10 mg p.o. daily Encouraged to take medications as prescribed. Assessment & Plan (05/16/2022 5:23 PM SANDFILL OPERATOR SURFACE): Blood pressure well controled today. No changes in current regimen. Assessment & Plan (01/17/2022 10:14 AM CDT): Condition is stable Discussed/ordered labs, encouraged healthy, low carbohydrate lifestyle and at least 150min/week of exercise, continue on lisinopril 20 mg daily. BP checked by myself 118/80 Assessment & Plan (10/13/2021 1:41 PM CDT): Stable; continue current medication regimen. Assessment & Plan (07/11/2021 11:17 PM SANDFILL OPERATOR SURFACE): BP well controlled today. No changes in current medication regimen. Assessment & Plan (04/09/2021 6:10 PM SANDFILL OPERATOR SURFACE): Patient encouraged to take BP medication as [...] received. Assessment & Plan (05/17/2020 1:09 PM SANDFILL OPERATOR SURFACE): Does not check BP at home. The [...] (09/29/2018): Added automatically from request for surgery [id number] Fibromyalgia 01/01/2017 Assessment & Plan (03/17/2024 7:36 AM SANDFILL OPERATOR SURFACE): Stable on duloxetine. No changes. Will continue to monitor. Primary osteoarthritis involving multiple joints 01/01/2017 Major depressive disorder 01/01/2017 Assessment & Plan (07/11/2021 11:04 AM SANDFILL OPERATOR SURFACE): Managed by Dr. Berger at [facility], following up every 3 months. Continues seeing therapist once monthly. Discussed increasing frequency of counseling to once weekly if able. PHQ today 21. Discussed importance of regular exercise/ healthy diet and general healthy lifestyle to improve moods. Lives at home with son and two grandsons. Reports supportive family. Denies any SI/HI. Assessment & Plan (04/09/2021 10:47 AM SANDFILL OPERATOR SURFACE): PHQ=19 (worsening with breast CA diagnosis) Hydroxyzine 25mg q6hr prn, risperidone 2mg nightly, trazodone 100mg nightly, duloxetine DR 60mg daily, amitriptyline 25mg nightly. Managed by Dr Berger at [facility]. Sees him q3mos. Also sees therapist Kay at [facility]. Denies suicidal/homicidal ideation. Assessment & Plan (08/16/2020 11:22 AM CDT): Hydroxyzine 25mg q6hr prn, risperidone 2mg nightly, trazodone 100mg nightly, duloxetine DR 60mg daily, amitriptyline 25mg nightly. Managed by Dr Berger at [facility]. Doing phone visits with him q3mos. Also with therapist Kay at [facility]. Reports good control of depression w/current regimen. No changes to be made at this time. Reviewed med Ses & scheduling. Reviewed red flags. Assessment & Plan (02/09/2020 9:30 AM CDT): Following w/Dr Berger at [facility] every 3 months. following w/monthly therapy appts w/Mellisa Davidson at [facility]. Verified current medications. Will fax lab results to Dr Berger at [facility] once completed. Reports good control of depression w/current regimen. No changes to be made at this time. Reviewed med Ses & scheduling. Reviewed red flags. Assessment & Plan (11/07/2019 10:00 AM CDT): Followed by Dr Berger at [facility]. Reports good control of depression w/current regimen. No changes to be made at this time. Reviewed med Ses & scheduling. Reviewed red flags. Resolved Problems Problem Noted Date Diagnosed Date Resolved Date BMI 27.0-27.9,adult 02/09/2020 08/17/19 21 Assessment & Plan (05/17/2020 1:11 PM SANDFILL OPERATOR SURFACE): Discussed healthy diet and importance of regular [...] healthier, we can set up appointment with gusset edger/motion study technician. 3. Have an active lifestyle, strive for [...] & Plan (11/07/2019 10:01 AM CDT): 12/22/18 RQ=842 HDL=43 VU=622 LDL=88 TC/HDL=4.74 07/04/19 TC=78 HDL=32 EU=628 UIE=788 TC/HDL=10.3 11/07/19 GM=792 DL=27 JB=711 YHK=451 CALC TC/HDL=12.0 Copy of today's lipid panel given to mrs Perez. Will have tests verified/repeated at lab today. Aware that atorvastatin will need increased if lipid panel elevated. Immunizations Immunization Administration Dates Next Due COVID-19 mRNA (All Web Leads) 0.3 m L (30 mcg) vaccine (12 [...] Trivalent, IM (MDV) 02/12/2014 Influenza, Unspecified 02/01/2023,2018,02/17/2019,02/08,02/08/2017 CNS Response (J&J) SARS-CoV-2 Vaccination 09/19/2020, 09/17/2020,09/17/2020 Pneumococcal Conjugate [...] How often do you attend chur or episcopal services? More than 4 times per year 06/26/2022 Do you belong to any clubs o r organizations such as latter-day groups, unions, fraternal or athletic groups, or [...] place to sleep or slept in a chcf (including now)? No 06/26/2022 Personal Safety Answer [...] on file Legal Sex Female 12:56 PM SANDFILL OPERATOR SURFACE Gender Identity Not on file Sexual Orientation [...] on file Medical Devices Implanted Type Area Billiard Parlor Manager Device Identifier Shelf Expiration Date Model / Serial / Lot Bard Peripheral Vascular [id number] Ultraclip Bard 17ga 12cm 2 Trigger Permanent Ultrasound - [id number] - [id number] Implanted:Qty: 1 on 05/09/2020 by Oc Amin MD at [facility] Breast Left: Breast Bard Peripheral Vascular 11/05/2022 [id number] / [id number] / Bard Peripheral Vascular [id number] Ultraclip Bard 17ga 10cm 2 Trigger Permanent Ultrasound - [id number] - [id number] Implanted:Qty: 1 on 05/09/2020 by Oc Amin MD at [facility] Breast Left: Breast Bard Peripheral Vascular 12/05/2022 [id number] / [id number] / Procedures Procedure Name Priority Date/Time Associated [...] HEMOGLOBIN A1C Routine 04/27/2024 1 :05 PM SANDFILL OPERATOR SURFACE Type 2 diabetes mellitus with hypoglycemia without coma, with long-term current use of insulin (HCC) ALBUMIN CREATININE RATIO, URINE Routine 02/23/2024 12:10 PM CDT DEXA AXIAL SKELETON BONE DENSITY 1 OR MORE SITES Schedule Routine, Read Routine (OP Routine) 04/03/2023 12:42 PM SANDFILL OPERATOR SURFACE At high risk for osteoporosis Age-related osteoporosis without current pathological fracture SCREENING MAMMOGRAM RIGHT W [place] UNILATERAL ONLY Schedule Routine, Read Routine (OP Routine) 03/28/2022 2:03 PM SANDFILL OPERATOR SURFACE Personal history of breast cancer Encounter for [...] LAB BLOOD ORDERABLES Final Result [facility] [place] 1 [facility] Department [place] [address] * Differential, auto (09/12/2024 9:00 [...] 9:45 AM CDT us Nidia W. Rojas SPA TECHNICIAN LAB BLOOD ORDERABLES Final Result [facility] ([place]) 1 [facility] [place] [address] * (ABNORMAL) CBC with auto differential (09/12/2024 [...] ORDERABLES Final Result [facility] ([place] 1 [facility] [place] [address] * Lipid panel (09/12/2024 9:00 AM CDT) [...] ORDERABLES Final Result [facility] ([place]) 1 [facility] Department [place] [address] * (ABNORMAL) Comprehensive metabolic panel (09/12/2024 9:00 [...] ORDERABLES Final Result [facility] ([place] 1 [facility] Department of Laboratories [place], [place] [id number] * Surgical pathology (08/24/2024 2:16 PM CDT) Tissue (Polyp(s), colon/colorectal, esophageal, gastric) 08/24/2024 8:16 AM CDT Tissue specimen (specimen) (Polyp(s), colon/colorectal, esophageal, gastric) 08/24/2024 8:21 AM CDT Narrative [facility] - 08/26/2024 8:44 AM CDT EPIC results best viewed via link to PDF [facility] Department of Pathology [address] [place] [id number] Note to Patients: This report may contain [...] Final Report Patient Name: DANA PEREZ Address: [address] [place] [address]- Gender: F : 1955 (Age: 68) Service: Gastro Location: [facility] Hospital #: [id number] Patient Type: [facility] Taken: 08/24/2024 Received: 08/24/2024 Accessioned: 08/24/2024 Reported: [...] determined by the Surgical Pathology Department at [facility] as part of an ongoing senior quality technician program and in compliance with federally mandated [...] by the Surgical Pathology Department [facility]. It has not been cleared or approved by the U. S. Food and Drug Administration. Note for decalcified specimens: This assay has not been validated on decalcified tissues. Results should be interpreted with caution given the possibility of false negativity on decalcified specimens us Nathan Brooks DO LAB PATHOLOGY ORDERABLES Final Result [facility] 1 [place], [place] [id number] * POCT glucose (08/24/2024 8:03 AM CDT) Glucose, POC 119 70 - 199 mg/dL Blood 08/24/2024 8:03 AM CDT 08/24/2024 8:03 AM CDT us Nathan Brooks DO LAB POCT ORDERABLES - DEVICE F inal Result Performing Organization Address City/[facility]/ZIP Co de Phone Number [facility] ([place]) [address] [place] [address] * (ABNORMAL) POCT glucose (08/24/2024 7:18 AM CDT) [facility] Signature Glucose, POC 60(L) 70 - 199 mg/dL Blood 08/24/2024 7:18 AM CDT 08/24/2024 7:18 AM CDT us Nathan Brooks DO LAB POCT ORDERABLES - DEVICE F inal Result Performing Organization Address [facility] de Phone Number [facility] ([place] [address] [place] [address] * Colonoscopy (08/24/2024 7:16 AM CDT) Anatomical Region Laterality Modality Other Narrative Procedure Note Nathan Brooks, DO - 08/24/2024 7:16 AM CDT [facility] Patient Name: Dana Perez Procedure Date: [...] immediately with the 2nd glass ofwater. Florastor Novalux per labelinstructions. MiraLax 1 capful 1-2 times [...] passed under direct vision. The Pediatric Colonoscope [id number] was introduced through the anus and advanced [...] 7:16 AM Procedure Code(s): --- Professional --- 66603, Colonoscopy, flexible; with biopsy, single or multiple --- Technical --- 13756, Colonoscopy, flexible; with biopsy, single or multiple [...] perforation orabscess without bleeding CPT copyright 2020 [employer]. All rights reserved. The codes documented in this report are preliminary and upon loss prevention representative reviewmay be revised to meet current compliance requirements. Recognized by the [employer] [place] for promoting quality in endoscopy us Nathan Brooks DO ENDOSCOPY PROCEDURES Final Res ult * HM DIABETES EYE EXAM (08/19/2024 8:56 AM CDT) us Historical Provider [facility] Edited Result - Final * Differential, auto (08/08/2024 1:55 PM CDT) Neutrophil abs 5.8 1.5 - 6.5 K/cumm Comment:Testing performed by : [facility] [address], Medical Office [facility] [address], [place] [address] Imm gran abs 0.0 0.0 - 0.1 K/cumm [facility] ([place]) Comment:Testing performed by : [facility] [address], Medical Office [facility] [address], [place] [address] Lymphocyte abs 0.9 0.8 - 3.3 K/cumm [facility] ([place]) Comment:Testing performed by : [facility] [address], Medical Office [facility] [address] [facility] [address], [place] [address] Monocyte abs 0.4 0.2 - 0.8 K/cumm [facility] ([place]) Comment:Testing performed by : [facility] [address], Medical Office [facility] B [facility] [address], [place] [address] Eosinophil abs 0.1 0.0 - 0.5 K/cumm [facility] ([place]) Comment:Testing performed by : [facility] [address], Medical Office [facility] [address], [place] [address] Basophil abs 0.1 0.0 - 0.1 K/cumm [facility] ([place]) Comment:Testing performed by : [facility] [address], Medical Office [facility] [address], [place] [address] Neutrophil pct 79.7 % [facility] ([place]) Comment: Interpretive Data Percent cell count reference ranges are not reported, since discordance with absolute values may lead to misinterpretation of CBC data. Current Interpretive Data was last revised on 2022. Testing performed by: [facility] [address], Medical Office [facility] [address], [place] [address] Imm gran pct 0.3 % [facility] (ERASMO) Comment: Interpretive Data Percent cell count reference ranges are not reported, since discordance with absolute values may lead to misinterpretation of CBC data. Current Interpretive Data was last revised on 2022. Testing performed by: [facility] [address], Medical Office [facility] B [facility] [address], [place] [address] Lymphocyte pct 12.9 % [facility] (ERASMO) Comment: Interpretive Data Percent cell count reference ranges are not reported, since discordance with absolute values may lead to misinterpretation of CBC data. Current Interpretive Data was last revised on 2022. Testing performed by: [facility] [address], Medical Office [facility] [address], [place] [address] Monocyte pct 5.4 % [facility] (ERASMO) Comment: Interpretive Data Percent cell count reference ranges are not reported, since discordance with absolute values may lead to misinterpretation of CBC data. Current Interpretive Data was last revised on 2022. Testing performed by: [facility] [address], Medical Office [facility] B [facility] [address], [place] [address] Eosinophil pct 1.0 % [facility] (ERASMO) Comment: Interpretive Data Percent cell count reference ranges are not reported, since discordance with absolute values may lead to misinterpretation of CBC data. Current Interpretive Data was last revised on 2022. Testing performed by: [facility] [address], Medical Office [facility] B [facility] [address], [place] [address] Basophil pct 0.7 % [facility] (ERASMO) Comment: Interpretive Data Percent cell count reference ranges are not reported, since discordance with absolute values may lead to misinterpretation of CBC data. Current Interpretive Data was last revised on 2022. Testing performed by: [facility] [address], Medical Office [facility] [address] [facility] [address], [place] [address] Blood 08/08/2024 1:55 PM CDT 08/08/2024 2:00 PM CDT us Ashu Arevalo MD LAB BLOOD ORDERABLES Fin al Result OSMIN ESTRADA (ERASMO) 1 [facility] Department [place] [address] * (ABNORMAL) CBC with auto differential (08/08/2024 1:55 PM CDT) [facility] WBC 7.3 3.8 - 9.9 K/cumm Comment:Testing performed by : [facility] [address], Medical Office Bl [address], [place] [address] Hgb 9.1(L) 11.9 - 15.5 g/dL [facility] (ERASMO) Comment:Testing performed by : [facility] [address], Medical Office [facility] [address], [place] [address] Hct 28.7(L) 35.6 - 45.5 % [facility] (ERASMO) Comment:Testing performed by : [facility] [address], Medical Office [facility] [address], [place] [address] Plt 315 150 - 400 K/cumm [facility] ([facility]) Comment:Testing performed by : [facility] [address], Medical Office [facility] [address], [place] [address] MPV 9.2 9.1 - 12.3 fL [facility] ([facility]ASMO) Comment:Testing performed by : [facility] [address], Medical Office [facility] [address], [place] [address] RBC 3.38(L) 3.90 - 5.20 M/cumm [facility] ([facility]) Comment:Testing performed by : [facility] [address], Medical Office Bl [address], [place] [address] MCV 84.9 81.3 - 96.4 fL [facility] ([facility]ASMO) Comment:Testing performed by : [facility] [address], Medical Office [facility] [address], [place] [address] MCH 26.9(L) 27.1 - 33.3 pg [facility] (ERASMO) Comment:Testing performed by : [facility] [address], Medical Office Bl [address], [place] [address] MCHC 31.7(L) 32.3 - 35.7 g/dL [facility] (ERASMO) Comment:Testing performed by : [facility] [address], Medical Office Bld[address], [place] [address] RDW CV 18.3(H) 11.1 - 14.9 % OSMIN ESTRADA (ERASMO) Comment:Testing performed by : [facility] [address], Medical Office [address], [place] [address] RDW SD 58.1(H) 35.7 - 48.1 fL OSMIN ESTRADA (ERASMO) Comment:Testing performed by : [facility]tr [address], Medical Office [facility] [address], [place] [address] NRBC abs Not Measured 0.00 - 0.01 K/cumm OSMIN ESTRADA (ERASMO) Comment:Testing performed by : [facility] Ctr [address], Medical Office [facility] [address], [place] [address] Blood 08/08/2024 1:55 PM CDT 08/08/2024 2:00 PM CDT us Ashu Arevalo MD LAB BLOOD ORDERABLES Fin al Result OSMIN ESTRADA (ERASMO) 1 [facility] Department [place] [address] * POCT hemoglobin A1c (04/27/2024 1:05 PM SANDFILL OPERATOR SURFACE) Pathologist [facility] Hemoglobin A1C, POC 5.9 4.0 - 5.6 % Blood 04/27/2024 1:05 PM SANDFILL OPERATOR SURFACE us Inna Tsang NP POINT OF CARE TEST ORDERABLES F inal Result * (ABNORMAL) Albumin Creatinine Ratio, Urine (02/23/2024 12:10 PM CDT) Albumin Ur 1,424.9 mg/L Comment: Interpretive Data No reference range established. Current interpretive data was last revised 2018. Testing performed by: [facility], [address] [place] [address], [place] [address] Creatinine Ur 128.1 mg/dL OSMIN ESTRADA (ERSAMO) Comment: Interpretive Data No reference range established. Current interpretive data was last revised 2018. Testing performed by: [facility], [address] [place] [address], [place] [address] Albumin Creatinine Ratio, Ur 1,112(H) 1 - 29 mg/g OSMIN ESTRADA (ERASMO) Comment:Testing performed by : [facility], [address] [place] [address], [place] [address] Urine 02/23/2024 12:1 0 PM CDT 02/23/2024 9:33 PM CDT us Ashu Arevalo MD LAB URINE ORDERABLES Fin al Result OSMIN ESTRADA (ERASMO) 1 [facility] Department [place] [address] * Dexa Axial Skeleton Bone Density 1 or 2 Site (04/03/2023 12:42 PM SANDFILL OPERATOR SURFACE) Anatomical Region Laterality Modality Body N/A Other 04/03/2023 1:05 PM SANDFILL OPERATOR SURFACE Narrative 04/03/2023 1:05 PM SANDFILL OPERATOR SURFACE EXAM DESCRIPTION: DEXA AXIAL SKELETON BONE DENSITY 1 OR MORE SITES REASON FOR STUDY: 67 y/o year old F with given history of: history of AI therapy Osteoporosis screening 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 MF: TOBIN Report ID: [id number] Reading Location: [id number] Shaniqua Ellison NP IMG DXA PROCEDURES Fi nal Result * Screening Mammogram Right W Wesley Unilateral Only (03/28/2022 2:03 PM SANDFILL OPERATOR SURFACE) Anatomical Region Laterality Modality Breast Right Mammography Narrative 03/28/2022 3:58 PM SANDFILL OPERATOR SURFACE Mammogram Technique: Right Breast Digital Breast Tomosynthesis, Unilateral C-view 2D Screening mammogram. Views obtained: bilateral craniocaudal and bilateral mediolateral oblique. Computer Aided Detection was performed. Mammogram Findings: The present examination has been compared to prior imaging studies performed on 02/16/2020, at [facility]. [facility] on 04/17/2020 and 05/09/2020, and at [facility] on 03/22/2021. The breast is heterogeneously dense, [...] prior imaging studies performed on 02/16/2020, at [facility]. [facility] on 04/17/2020 and 05/09/2020, and at [facility] on 03/22/2021. The breast is heterogeneously dense, [...] Most Recently Relevant to Health Maintenance Insurance [facility] UHC MEDICARE ADVANTAGE [facility] Address: [address] [address] [place] [address] MEDICARE ADVANTAGE [facility] Address: [facility] [address] [place] [address] MEDICARE ADVANTAGE [facility] Address: [address] [address] [place] [address] IDPA Advance Directives For more information, please contact: [phone] * Full Code (Latest Code Status on [...] 8:34 AM 10/18/2018 8:35 AM Care Teams Hospice Administrator Relationship Specialty Start Date End Date Vijay Truong MD [address] [place] [address] PCP - General 08/08/16 Rubén Miranda MD PhD [address] [place] [address] Radiation Oncologist Radiation Oncology 07/27/20 Lila James MD [address] [address] Referring Physician Surgical Oncology 07/27/20 Emile Berger MD [address] [place] [address] Referring Physician Psychiatry & Neurology 02/05/22 Ash Fraga MD [address] [place] [address] Medical Oncologist/Garden Equipment Mechanic Hematology and Oncology 06/11/22
--- OUTSIDE RECORDS SUMMARY | 2024-10-14 13:29 | XMS_ITS | Clinical Summary ---
Author Organization [facility] Facility Address [address] [place] [address] Care Team Providers Care Sustainability Officer Name Role Phone Vijay Truong Primary Care Provider [phone] Allergies No known active allergies Medications * [...] & Plan: Managed by Dr. Berger at [facility], following up every 3 months. Continues [...] Description 08/19/2024 12:30 PM CDT Office Visit [facility] [address] [place] [address] [phone] Ashu Arevalo MD Chronic kidney disease stage 4 (HCC) (Primary Dx) 08/08/2024 Office Communication [employer] [address] [place] [phone] Ashu Arevalo MD from Last 3 Months [...] Description 12/09/2024 11:30 AM CDT Office Visit [facility], [facility] [address] [facility] [address] [place] [id number] Ashu Arevalo MD 2 [facility] [address] [place] [address] Health Maintenance Due Date Last Done Comments [...] Most Recently Relevant to Health Maintenance Insurance [facility] Medicare Care Teams Sustainability Officer Relationship Specialty Start Date [place] [address] PCP - General Internal Medicine 12/13/21
--- OUTSIDE RECORDS SUMMARY | 2024-10-14 13:29 | XMS_ITS | Encounter Summary ---
Author Organization [facility] Healthcare Address [address] [place] [address] Care Team Providers Care Correctional Corporal Name Role Phone Vijay Truong MD Primary Care Provider [phone] Rubén Miranda MD PhD Unavailable [phone] Lila James MD Unavailable [phone] Emile Berger MD Unavailable [phone] Ash Fraga MD Unavailable [phone] Encounter Details Date Type Department Care Team (Latest Contact Info) Description 08/28/2024 Results Follow-Up [facility] Gastroenterology at [address] [place] [address] Nathan Brooks, [address] [place] [address] Surgical pathology Social History Tobacco Use Types [...] do you attend [facility] or latter-day services? More than 4 times per year 06/26/2022 Do you belong to any clubs o r organizations such as advent groups, unions, fraternal or athletic groups, or [...] place to sleep or slept in a nursing home (including now)? 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 Gender Identity Not on file Sexual Orientation Not on file documented as of this encounter Plan of Treatment Not on file documented as of this encounter Visit Diagnoses Not on filedocumented in this encounter Care Teams Correctional Corporal Relationship Specialty Start Date End Date Vijay Truong MD [address] [place] [address] PCP - General 08/08/16 Rubén Miranda MD PhD [address] [place] [address] Radiation Oncologist Radiation Oncology 07/27/20 [place] [address] [place] [address] Referring Physician Surgical Oncology 07/27/20 Emile Berger MD [address] [place] [address] Referring Physician Psychiatry & Neurology 02/05/22 Ash Fraga MD [address] [place] [address] Medical Oncologist/Diagnostic Assistant Hematology and Oncology 06/11/22 documented as of this encounter
--- OUTSIDE RECORDS SUMMARY | 2024-10-14 13:29 | XMS_ITS | Clinical Summary ---
Author Organization [facility] Address [address] [place] [address] Care Team Providers Care Warehouse Delivery Driver Name Role Phone Vijay Truong MD Primary Care Provider [phone] Source Comments [facility],non-owned Affiliates and Associated Physician Practices is amultiple site organization consisting of ambulatory clinics and hospital sitesin [place], [place], [place] and [place]. This disclosure is being madepursuant to the Care Everywhere program and may not contain all information available regarding this patient. 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
--- OUTSIDE RECORDS SUMMARY | 2024-10-14 13:29 | XMS_ITS | Encounter Summary ---
Author Organization [facility] Healthcare Address [address] [place] [address] Care Team Providers Care In Store Representative Name Role Phone Vijay Truong MD Primary Care Provider [phone] Rubén Miranda MD PhD Unavailable [phone] Lila James MD Unavailable [phone] Emile Berger MD Unavailable [phone] Ash Fraga MD Unavailable [phone] Reason for Visit * Reason Onset Date Comments Medical Records Request 09/19/2024 Encounter Details Date Type Department Care Team (Late st Contact Info) Description 09/19/2024 Telephone [facility] [address] [place] [address] Vijay Truong MD [address] [place] [address] Medical Records Request Social History [...] 06/26/2022 How often do you attend [facility] or orthodoxy services? More than 4 times per year 06/26/2022 Do you belong to any clubs o r organizations such as scientology groups, unions, fraternal or athletic groups, or [...] place to sleep or slept in a custodial (including now)? 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 [facility] ehs engineer Date Needed: KELLEY Delivery Method: Fax Fax number to use for return of records: [phone] Additional Comments/Concerns: Liseth [place] Case Manger with [facility] called to request patients most recentlab results. Does the message need to be routed? Yes-Action Needed documented in this encounter Plan of Treatment Not on file documented as of this encounter Visit Diagnoses Not on filedocumented in this encounter Care Teams In Store Representative Relationship Specialty Start Date End [place] [address] PCP - General 08/08/16 Rubén Miranda MD PhD [address] [place] [address] Radiation Oncologist Radiation Oncology 07/27/20 Lila James MD [address] [place] [address] Referring Physician Surgical Oncology 07/27/20 [place] [address] [place] [address] Referring Physician Psychiatry & Neurology 02/05/22 Ash Fraga MD [address] [place] [address] Medical Oncologist/Labor Relations Analyst Hematology and Oncology 06/11/22 documented as of this encounter
--- OUTSIDE RECORDS SUMMARY | 2024-10-14 13:29 | XMS_ITS | Clinical Summary ---
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 E11.65 100 each 4 02/17/[address] (PROTONIX) 40 mg EC tablet Take 1 tablet (40 mg total) by mouth daily 90 tablet 4 03/16/20 24 025 Active calcitRIOL (ROCALTROL) 0.25 mcg capsule Take 1 capsule (0.25 mcg total) by mouth 03/02/20 24 Active atorvastatin (LIPITOR) 40 mg tabletIndications:Dy slipidemia associated with type 2 diabetes mellitus ([facility]) Take 1 tablet (40 mg total) by mouth daily 90 tablet 4 03/17/20 24 Active lisinopriL (PRINIVIL,ZESTRIL) 10 mg tabletIndications:Hy pertension associated with diabetes ([facility]) Take 2 tablets (20 mg total) by mouth daily 180 tablet 3 03/17/20 24 Active insulin glargine 100 unit/mL (3 mL) pen for injectionIndications :Type 2 diabetes mellitus with hypoglycemia without coma, with long-term current use of insulin ([facility]) Inject 18 Units under the skin nightly [...] 03/17/2024 Assessment & Plan (03/17/2024 7:38 AM SAND TEMPERER): Stable. Following with pulmonology and will continue to do so. Hypertension associated with diabetes 03/17/2024 Assessment & Plan (09/15/2024 1:29 PM CDT): Well controlled on lisinopril. Will continue to monitor. Assessment & Plan (04/27/2024 1:21 PM SAND TEMPERER): This is a chronic condition which is not at goal on arrival. At goal after rest. Goal is less than 140/90 Continue lisinopril, Lasix Encouraged to monitor weight and B/P at home. Assessment & Plan (03/17/2024 7:39 AM SAND TEMPERER): Normotensive. Continue lisinopril. Will continue to monitor. Colon cancer screening 03/17/2024 Assessment & Plan (03/17/2024 7:39 AM SAND TEMPERER): Referral to GI for screening colonoscopy placed History of colonic polyps 03/17/2024 Encounter for screening colonoscopy 03/17/2024 Anemia of chronic renal failure, stage 4 (severe ) 03/07/2024 Assessment & Plan (09/15/2024 1:29 PM CDT): Renal function stable. Anemia improving. Continues following closely with Nephrology. Assessment & Plan (03/17/2024 7:36 AM SAND TEMPERER): Stable. Following with Nephrology and will continue [...] Lasix Assessment & Plan (04/06/2023 3:42 PM SAND TEMPERER): This is a chronic condition which is [...] atorvastatin. Assessment & Plan (06/19/2022 2:08 PM SAND TEMPERER): This is a chronic condition which is [...] 01/17/2022 Assessment & Plan (03/17/2024 7:36 AM SAND TEMPERER): Visit preventive in nature. We reviewed medications, [...] 21 Assessment & Plan (04/09/2021 5:57 PM SAND TEMPERER): Vaccine given in office today. Reviewed possible [...] cooking Assessment & Plan (05/16/2022 5:25 PM SAND TEMPERER): Weights stable. Working on diet and exercise, previously riding stationary bike. Assessment & Plan (01/17/2022 10:16 AM CDT): Discussed healthy diet and importance of regular physical activity. Assessment & Plan (10/13/2021 1:35 PM CDT): Congratulated patient on her efforts to improve diet. Discussed healthy diet and importance of regular physical activity. Assessment & Plan (07/11/2021 11:00 AM SAND TEMPERER): Discussed healthy diet and importance of regular physical activity. Assessment & Plan (04/09/2021 5:57 PM SAND TEMPERER): Discussed healthy diet and importance of regular [...] bedtime. Assessment & Plan (05/17/2020 1:10 PM SAND TEMPERER): Omeprazole refilled. Reviewed provocative foods to avoid: caffeine, citrus, ETOH, carbonated drinks, fried/fatty/fast foods & rich/creamy sauces. Reviewed diet/exercise recommendations: 20-30min physicaly activity daily at minimum. Reviewed med Ses & scheduling. Weight loss will help improve GERD sxs. Keep HOB elevated 30 degrees & not eat 2-3 hrs before bedtime. Regional lymph node metastasis present Assessment & Plan (05/17/2020 1:09 PM SAND TEMPERER): L axillary lymph node. Anxious re: new L breast ca dx. Anxious re: pending treatments. Discussed at length during appt. Copies of recent screening/diagnostic mamm & ultrasound of L breast given to mrs Perez. Discussed lymph node involvement. Referral placed to Dr James at [facility]. Aware that her office will call her [...] from 05/09/2020:Stage IIA(cT2, cN1(f), cM0, G1, ER+, IN+, HER2-) - Signed by Rubén Miranda MD PhD on 07/27/2020 Pathologic stage from 07/02/2020:Stage IA(pT2, pN1a(sn), cM0, G1, ER+, IN+, HER2- ) - Signed by Rubén Miranda MD PhD on 07/27/2020 Assessment & Plan (01/17/2022 10:19 AM CDT): Assessment & Plan (04/09/2021 6:01 PM SAND TEMPERER): Follows with oncology, continues letrozone. To have [...] necessary. Assessment & Plan (05/17/2020 1:08 PM SAND TEMPERER): Anxious re: new L breast ca dx. Anxious re: pending treatments. Discussed at length during appt. Copies of recent screening/diagnostic mamm & ultrasound of L breast given to mrs Perez. Discussed lymph node involvement. Referral placed to Dr James at [facility]. Aware that her office will call her [...] continue. Assessment & Plan (04/27/2024 1:21 PM SAND TEMPERER): This is a chronic condition which is at goal . Goal is LDL less than 70 Continue atorvastatin Encouraged to eat healthy, include fresh fruits and vegetables daily and avoid eating fried foods more than once per week. Assessment & Plan (03/17/2024 7:36 AM SAND TEMPERER): Stable. Continue atorvastatin. Tolerating without side effects. Will continue to monitor. Assessment & Plan (01/13/2024 12:49 PM CDT): This is a chronic condition which is at goal . Goal is LDL less than 70 Continue atorvastatin Encouraged to eat healthy, include fresh fruits and vegetables daily and avoid eating fried foods more than once per week. Assessment & Plan (04/06/2023 3:43 PM SAND TEMPERER): This is a chronic condition which is [...] prescribed. Assessment & Plan (06/19/2022 2:10 PM SAND TEMPERER): This is a chronic condition which is not at goal of LDL less than 70 Continue atorvastatin Encouraged to eat healthy, include fresh fruits and vegetables daily and avoid eating fried foods more than once per week. Encouraged to take medications as prescribed. Assessment & Plan (05/16/2022 5:17 PM SAND TEMPERER): Continue current regimen. Assessment & Plan (01/17/2022 10:16 AM CDT): 01/10/22 TC 186 TRG 421 HDL 29 LDL 90 Continue current regimen, recommended fish oil supplementation and following low fat diet. Will repeat labs prior to next office visit. Assessment & Plan (10/13/2021 1:35 PM CDT): Continue atorvastatin daily. Assessment & Plan (07/11/2021 11:16 PM SAND TEMPERER): Reviewed previous lipid panel. Doing well on atorvastatin 40 mg daily, denies any medication side effects. Assessment & Plan (04/09/2021 6:00 PM SAND TEMPERER): Results for orders placed or performed in [...] & Plan (08/16/2020 11:24 AM CDT): 12/22/18 PK=802 HDL=43 FB=326 LDL=88 TC/HDL=4.74 07/04/19 TC=78 HDL=32 TW=480 TYJ=323 TC/HDL=10.3 11/07/19 FB=168 DL=27 KJ=040 HKX=560 CALC TC/HDL=12.0 to lab 02/09/20 VI=585 HDL=38 NU=639 LDL=92 TC/HLD=5.0 The 10-year ASCVD risk score [...] flags. Assessment & Plan (05/17/2020 1:10 PM SAND TEMPERER): We will check labs and make adjustments [...] 10/25/21. Assessment & Plan (05/16/2022 5:23 PM SAND TEMPERER): Following with nephrology. Discussed importance of well controlled blood pressure and diabetes management. Assessment & Plan (01/17/2022 9:44 AM CDT): 09/18/20 GFR=17 11/08/20 GFR=26 02/14/21 GFR=22 10/01/21 GFR=27 01/10/22 GFR=20 Following with nephrology. Assessment & Plan (10/13/2021 1:41 PM CDT): 09/18/20 GFR=17 11/08/20 GFR=26 10 GFR=22 10/01/21 GFR=27 Scheduled with nephrology 10/25/21. Assessment & Plan (04/09/2021 5:59 PM SAND TEMPERER): 09/18/20 GFR=17 11/08/20 GFR=26 02/14/21 GFR=22 Updated [...] function. Assessment & Plan (05/17/2020 1:11 PM SAND TEMPERER): GFR 11/07/19=35 GFR 02/09/20=35. Has been stable. [...] 11/06/2019 Assessment & Plan (05/16/2022 5:23 PM SAND TEMPERER): Lab Results Component Value Date HGBA1C 9.9 [...] 04/09/2021 Assessment & Plan (07/11/2021 11:17 PM SAND TEMPERER): Lab Results Component Value Date HGBA1C 10.5 07/11/2021 HGBA1C 9.7 04/09/2021 HGBA1C 11.7 01/07/2021 Patient agreeable to meet with clinical staff educator to discuss healthy food choices to improve blood glucose. Referral placed. Will start basal insulin 10 units nightly, reviewed medication administration, follow up in 3 months and bring copy of blood sugar log to next apt. Reviewed s/s of hypo/hypergylcemia. Assessment & Plan (04/09/2021 6:08 PM SAND TEMPERER): Lab Results Component Value Date HGBA1C 9.7 [...] month Assessment & Plan (05/17/2020 1:09 PM SAND TEMPERER): Lab Results Component Value Date HGBA1C 9.6 [...] evaluation. Last eye exam december 2018 at [facility]. Letter sent to get copy of [...] 04/09/2021 Assessment & Plan (04/27/2024 1:21 PM SAND TEMPERER): This is a chronic condition which is [...] lisinopril. Assessment & Plan (03/17/2024 7:35 AM SAND TEMPERER): Improving. Continue following with endocrinology. Red flags reviewed. Hypertensive disorder 07/04/2019 Overview (05/19/2023): Last Assessment & Plan: Stable; continue current medication regimen. Assessment & Plan (04/06/2023 3:43 PM SAND TEMPERER): This is a chronic condition which is [...] prescribed. Assessment & Plan (06/19/2022 2:09 PM SAND TEMPERER): This is a chronic condition which is at goal of less than 140/90 Hypotension 94/48 Personally reviewed labs. Decrease lisinopril to 10 mg p.o. daily Encouraged to take medications as prescribed. Assessment & Plan (05/16/2022 5:23 PM SAND TEMPERER): Blood pressure well controled today. No changes in current regimen. Assessment & Plan (01/17/2022 10:14 AM CDT): Condition is stable Discussed/ordered labs, encouraged healthy, low carbohydrate lifestyle and at least 150min/week of exercise, continue on lisinopril 20 mg daily. BP checked by myself 118/80 Assessment & Plan (10/13/2021 1:41 PM CDT): Stable; continue current medication regimen. Assessment & Plan (07/11/2021 11:17 PM SAND TEMPERER): BP well controlled today. No changes in current medication regimen. Assessment & Plan (04/09/2021 6:10 PM SAND TEMPERER): Patient encouraged to take BP medication as [...] received. Assessment & Plan (05/17/2020 1:09 PM SAND TEMPERER): Does not check BP at home. The [...] (09/29/2018): Added automatically from request for surgery [id number] Fibromyalgia 01/01/2017 Assessment & Plan (03/17/2024 7:36 AM SAND TEMPERER): Stable on duloxetine. No changes. Will continue to monitor. Primary osteoarthritis involving multiple joints 01/01/2017 Major depressive disorder 01/01/2017 Assessment & Plan (07/11/2021 11:04 AM SAND TEMPERER): Managed by Dr. Berger at [facility], following up every 3 months. Continues seeing therapist once monthly. Discussed increasing frequency of counseling to once weekly if able. PHQ today 21. Discussed importance of regular exercise/ healthy diet and general healthy lifestyle to improve moods. Lives at home with son and two grandsons. Reports supportive family. Denies any SI/HI. Assessment & Plan (04/09/2021 10:47 AM SAND TEMPERER): PHQ=19 (worsening with breast CA diagnosis) Hydroxyzine 25mg q6hr prn, risperidone 2mg nightly, trazodone 100mg nightly, duloxetine DR 60mg daily, amitriptyline 25mg nightly. Managed by Dr Berger at [facility]. Sees him q3mos. Also sees therapist Kay at [facility]. Denies suicidal/homicidal ideation. Assessment & Plan (08/16/2020 11:22 AM CDT): Hydroxyzine 25mg q6hr prn, risperidone 2mg nightly, trazodone 100mg nightly, duloxetine DR 60mg daily, amitriptyline 25mg nightly. Managed by Dr Berger at [facility]. Doing phone visits with him q3mos. Also with therapist Kay at [facility]. Reports good control of depression w/current regimen. No changes to be made at this time. Reviewed med Ses & scheduling. Reviewed red flags. Assessment & Plan (02/09/2020 9:30 AM CDT): Following w/Dr Berger at [facility] every 3 months. following w/monthly therapy appts w/Mellisa Davidson at [facility]. Verified current medications. Will fax lab results to Dr Berger at [facility] once completed. Reports good control of depression w/current regimen. No changes to be made at this time. Reviewed med Ses & scheduling. Reviewed red flags. Assessment & Plan (11/07/2019 10:00 AM CDT): Followed by Dr Berger at [facility]. Reports good control of depression w/current regimen. No changes to be made at this time. Reviewed med Ses & scheduling. Reviewed red flags. Resolved Problems Problem Noted Date Diagnosed Date Resolved Date BMI 27.0-27.9,adult 02/09/2020 08/17/19 21 Assessment & Plan (05/17/2020 1:11 PM SAND TEMPERER): Discussed healthy diet and importance of regular [...] healthier, we can set up appointment with marketing campaign analyst/reproduction artist. 3. Have an active lifestyle, strive for [...] & Plan (11/07/2019 10:01 AM CDT): 12/22/18 GE=923 HDL=43 AU=061 LDL=88 TC/HDL=4.74 07/04/19 TC=78 HDL=32 BN=729 HPH=721 TC/HDL=10.3 11/07/19 MQ=416 DL=27 ES=569 QFG=035 CALC TC/HDL=12.0 Copy of today's lipid panel given to mrs Perez. Will have tests verified/repeated at lab today. Aware that atorvastatin will need increased if lipid panel elevated. Encounters Date Type Department Care Team Description 10/13/2024 Orders Only [facility] [address] [phone] Radha Rodriges MD 09/19/2024 Telephone [facility] [address] [phone] Vijay Truong MD Medical Records Request 09/15/2024 12:30 PM CDT Office Visit [facility] [address] [phone] Nidia Rojas NP Dyslipidemia associated with type 2 diabetes mellitus (HCC) (Primary Dx); Screening mammogram for breast cancer; Hypertension associated with diabetes (HCC); Anemia of chronic renal failure, stage 4 (severe) (HCC) 09/12/2024 8:55 AM CDT Lab [address] [phone] Dyslipidemia associated with type 2 diabetes mellitus (HCC); Hypertension associated with diabetes (HCC) 09/09/2024 Telephone [facility] [address] [phone] Inna Lugo MA Labs Requested for Appointment 08/28/2024 Results Follow-Up [facility] at [address] [place] [address] Nathan Brooks, Surgical pathology 08/24/2024 8:03 AM CDT Anesthesia Event [address] [address] Piter Spencer DO 08/24/2024 7:30 AM CDT - 08/24/2024 8:00 AM CDT Surgery [address] [address] Nathan Brooks, COLON BIOPSY 08/24/2024 6:00 AM CDT - 08/24/2024 9:11 AM CDT Hospital Encounter [facility] [address] [place] [address] Nathan Brooks, History of colonic polyps; Encounter for screening colonoscopy Discharge Disposition: Discharge to home or self care 08/17/[address] [place] [phone] Ashu Arevalo MD 08/09/[address] [place] [phone] Ashu Arevalo MD 08/08/2024 2:30 PM CDT Clinical Support [address] [address] Anemia of chronic renal failure, stage 4 (severe) (HCC) (Primary Dx) 08/08/2024 2:15 PM CDT Lab [address] [place] [phone] Anemia of chronic renal failure, unspecified CKD stage (Primary Dx) 08/03/2024 Orders Only [facility] [address] [phone] Vijay Truong MD 08/03/2024 Telephone [facility] [address] [phone] Vijay Truong MD Medical Question/Miscellan eous from Last 3 Months Immunizations Immunization Administration Dates Next Due COVID-19 mRNA ([facility]) 0.3 m L (30 mcg) vaccine (12 [...] week 06/26/2022 How often do you attend [facility] or protestant services? More than 4 times per year 06/26/2022 Do you belong to any clubs o r organizations such as mandaeism groups, unions, fraternal or athletic groups, or [...] place to sleep or slept in a jail (including now)? No 06/26/2022 Personal Safety Answer [...] on file Legal Sex Female 12:56 PM SAND TEMPERER Gender Identity Not on file Sexual Orientation [...] 08/24/2024, 10/18/2018 Medical Devices Implanted Type Area Tourist Information Officer Device Identifier Shelf Expiration Date Model / Serial / Lot Bard Peripheral Vascular [id number] Ultraclip Bard 17ga 12cm 2 Trigger Permanent Ultrasound - [id number] - [id number] Implanted:Qty: 1 on 05/09/2020 by Oc Amin MD at [facility] Breast Left: Breast [employer] 11/05/2022 [id number] / [id number] / Bard Peripheral Vascular [id number] Ultraclip Bard 17ga 10cm 2 Trigger Permanent Ultrasound - [id number] - [id number] Implanted:Qty: 1 on 05/09/2020 by Oc Amin MD at [facility] Breast Left: Breast [employer] 12/05/2022 [id number] / [id number] / Procedures Procedure Name Priority Date/Time Associated [...] HEMOGLOBIN A1C Routine 04/27/2024 1 :05 PM SAND TEMPERER Type 2 diabetes mellitus with hypoglycemia without coma, with long-term current use of insulin (HCC) ALBUMIN CREATININE RATIO, URINE Routine 02/23/2024 12:10 PM CDT DEXA AXIAL SKELETON BONE DENSITY 1 OR MORE SITES Schedule Routine, Read Routine (OP Routine) 04/03/2023 12:42 PM SAND TEMPERER At high risk for osteoporosis Age-related osteoporosis without current pathological fracture SCREENING MAMMOGRAM RIGHT W [place] UNILATERAL ONLY Schedule Routine, Read Routine (OP Routine) 03/28/2022 2:03 PM SAND TEMPERER Personal history of breast cancer Encounter for [...] LAB BLOOD ORDERABLES Final Result [facility] (SCIO) 1 [facility] [place] [address] * Differential, auto (09/12/2024 9:00 [...] ORDERABLES Final Result [facility] (ERASMO) 1 [facility] [place] [address] * (ABNORMAL) CBC with auto differential (09/12/2024 [...] ORDERABLES Final Result [facility] (ERASMO) 1 [facility] [place] [address] * Lipid panel (09/12/2024 9:00 AM CDT) [...] ORDERABLES Final Result [facility] (ERASMO) 1 [facility] [place] [address] * (ABNORMAL) Comprehensive metabolic panel (09/12/2024 9:00 [...] ORDERABLES Final Result [facility] (ER[facility]MO) 1 [facility] Department of Laboratories [place], [place] [id number] * Surgical pathology (08/24/2024 2:16 PM CDT) Tissue (Polyp(s), colon/colorectal, esophageal, gastric) 08/24/2024 8:16 AM CDT Tissue specimen (specimen) (Polyp(s), colon/colorectal, esophageal, gastric) 08/24/2024 8:21 AM CDT Narrative PATHOLOGY [facility] (SCIO) - 08/26/2024 8:44 AM CDT EPIC results best viewed via link to PDF [facility] Department of Pathology [address] [place], [place] [id number] Note to Patients: This report may contain [...] Final Report Patient Name: DANA PEREZ Address: [address] [place] [address]- Gender: F : 1955 (Age: 68) Service: Gastro Location: [facility] Hospital #: [id number] Patient Type: [facility] Taken: 08/24/2024 Received: 08/24/2024 Accessioned: 08/24/2024 [...] determined by the Surgical Pathology Department at [facility] as part of an ongoing quality facilitator program and in compliance with federally mandated [...] characteristics determined by the Surgical Pathology Department [facility]. It has not been cleared or approved by the U. S. Food and Drug Administration. Note for decalcified specimens: This assay has not been validated on decalcified tissues. Results should be interpreted with caution given the possibility of false negativity on decalcified specimens us Nathan Brooks DO LAB PATHOLOGY ORDERABLES Final Result PATHOLOGY [facility] (SCIO) 1 [place] [address] * POCT glucose (08/24/2024 8:03 AM CDT) Glucose, POC 119 70 - 199 mg/dL Blood 08/24/2024 8:03 AM CDT 08/24/2024 8:03 AM CDT us Nathan Brooks DO LAB POCT ORDERABLES - DEVICE F inal Result [facility] (ERASMO) 1 [place] [address] * (ABNORMAL) POCT glucose (08/24/2024 7:18 AM CDT) Glucose, POC 60(L) 70 - 199 mg/dL Blood 08/24/2024 7:18 AM CDT 08/24/2024 7:18 AM CDT us Nathan Brooks DO LAB POCT ORDERABLES - DEVICE F inal Result Performing Organization Address [facility] Co de Phone Number [facility] (SCIO) [address] [place] [address] * Colonoscopy (08/24/2024 7:16 AM CDT) Anatomical Region Laterality Modality Other Narrative Procedure Note Nathan Brooks, - 08/24/2024 7:16 AM CDT [facility] Patient Name: Dana Perez Procedure Date: 08/24/2024 7:16 AM Date of : 1955 Admit Type: Outpatient Age: 68 Gender: Female Attending MD: Nathan Brooks D.O. Room: [facility] ENDOSCOPY ROOM 3 Note Status: Finalized Patient [...] immediately with the 2nd glass ofwater. Florastor SERVICEINFINITY per labelinstructions. MiraLax 1 capful 1-2 times [...] passed under direct vision. The Pediatric Colonoscope [id number] was introduced through the anus and advanced [...] 7:16 AM Procedure Code(s): --- Professional --- 42729, Colonoscopy, flexible; with biopsy, single or multiple --- Technical --- 15613, Colonoscopy, flexible; with biopsy, single or multiple [...] perforation orabscess without bleeding CPT copyright 2020 [employer]. All rights reserved. The codes documented in this report are preliminary and upon dial brusher reviewmay be revised to meet current compliance requirements. Recognized by the [employer] for promoting quality in endoscopy Nathan Brooks DO ENDOSCOPY PROCEDURES Final Res ult * HM DIABETES EYE EXAM (08/19/2024 8:56 AM CDT) Historical Provider [facility] Edited Result - Final * Differential, auto (08/08/2024 1:55 PM CDT) Neutrophil abs 5.8 1.5 - 6.5 K/cumm Comment:Testing performed by : [facility] [address], Medical Office [facility] [address], [place] [address] Imm gran abs 0.0 0.0 - 0.1 K/cumm [facility] (ERASMO) Comment:Testing performed by : [facility] [address], Medical Office [facility] [address], [place] [address] Lymphocyte abs 0.9 0.8 - 3.3 K/cumm [facility] (ERASMO) Comment:Testing performed by : [facility] [address], Medical Office [facility] [address], [place] [address] Monocyte abs 0.4 0.2 - 0.8 K/cumm [facility] (SCIO) Comment:Testing performed by : [facility] [address], Medical Office [facility] [address], [place] [address] Eosinophil abs 0.1 0.0 - 0.5 K/cumm [facility] (SCIO) Comment:Testing performed by : [facility] [address], Medical Office [facility] [address], [place] [address] Basophil abs 0.1 0.0 - 0.1 K/cumm [facility] (ERASMO) Comment:Testing performed by : [facility] [address], Medical Office [facility] [address], [place] [address] Neutrophil pct 79.7 % [facility] (ERASMO) Comment: Interpretive Data Percent cell count reference ranges are not reported, since discordance with absolute values may lead to misinterpretation of CBC data. Current Interpretive Data was last revised on 2022. Testing performed by: [facility] [address], Medical Office [facility] [address], [place] [address] Imm gran pct 0.3 % [facility] (SCIO) Comment: Interpretive Data Percent cell count reference ranges are not reported, since discordance with absolute values may lead to misinterpretation of CBC data. Current Interpretive Data was last revised on 2022. Testing performed by: [facility] [address], Medical Office [facility] [address], [place] [address] Lymphocyte pct 12.9 % [facility] (ERASMO) Comment: Interpretive Data Percent cell count reference ranges are not reported, since discordance with absolute values may lead to misinterpretation of CBC data. Current Interpretive Data was last revised on 2022. Testing performed by: [facility] [address], Medical Office [facility] [address], [place] [address] Monocyte pct 5.4 % [facility] (ERASMO) Comment: Interpretive Data Percent cell count reference ranges are not reported, since discordance with absolute values may lead to misinterpretation of CBC data. Current Interpretive Data was last revised on 2022. Testing performed by: [facility] [address], Medical Office [facility] [address] [facility] [address], [place] [address] Eosinophil pct 1.0 % [facility] (ERASMO) Comment: Interpretive Data Percent cell count reference ranges are not reported, since discordance with absolute values may lead to misinterpretation of CBC data. Current Interpretive Data was last revised on 2022. Testing performed by: [facility] [address], Medical Office [facility] [address], [place] [address] Basophil pct 0.7 % [facility] (ERASMO) Comment: Interpretive Data Percent cell count reference ranges are not reported, since discordance with absolute values may lead to misinterpretation of CBC data. Current Interpretive Data was last revised on 2022. Testing performed by: [facility] [address], Medical Office [facility] [address], [place] [address] Blood 08/08/2024 1:55 PM CDT 08/08/2024 2:00 PM CDT us Ashu Arevalo MD LAB BLOOD ORDERABLES Fin al Result OSMIN [facility] (ERASMO) 1 [facility] Department [place] [address] * (ABNORMAL) CBC with auto differential (08/08/2024 1:55 PM CDT) WBC 7.3 3.8 - 9.9 K/cumm Comment:Testing performed by : [facility] [address], Medical Office [facility] [address], [place] [address] Hgb 9.1(L) 11.9 - 15.5 g/dL [facility] (ERASMO) Comment:Testing performed by : [facility] [address], Medical Office [facility] [address], [place] [address] Hct 28.7(L) 35.6 - 45.5 % [facility] (ERASMO) Comment:Testing performed by : [facility] [address], Medical Office [facility] [address], [place] [address] Plt 315 150 - 400 K/cumm [facility] (ERASMO) Comment:Testing performed by : [facility] [address], Medical Office [facility] [address], [place] [address] MPV 9.2 9.1 - 12.3 fL [facility] (ERASMO) Comment:Testing performed by : [facility] [address], Medical Office [facility] [address], [place] [address] RBC 3.38(L) 3.90 - 5.20 M/cumm [facility] (ERASMO) Comment:Testing performed by : [facility] [address], Medical Office [facility] [address], [place] [address] MCV 84.9 81.3 - 96.4 fL [facility] (ERASMO) Comment:Testing performed by : [facility] [address], Medical Office [facility] [address], [place] [address] MCH 26.9(L) 27.1 - 33.3 pg [facility] (ERASMO) Comment:Testing performed by : [facility] [address], Medical Office [facility] [address], [place] [address] MCHC 31.7(L) 32.3 - 35.7 g/dL [facility] (ERASMO) Comment:Testing performed by : [facility] [address], Medical Office [address], [place] [address] RDW CV 18.3(H) 11.1 - 14.9 % [facility] (ERASMO) Comment:Testing performed by : [facility] [place] [address], Medical Office [address], [place] [address] RDW SD 58.1(H) 35.7 - 48.1 fL OSMIN ESTRADA (ERASMO) Comment:Testing performed by : [facility] [place] [address], Medical Office [facility] [address], [place] [address] NRBC abs Not Measured 0.00 - 0.01 K/cumm OSMIN ESTRADA (ERASMO) Comment:Testing performed by : [facility] [place] [address], Medical Office [facility] [address], [place] [address] Blood 08/08/2024 1:55 PM CDT 08/08/2024 2:00 PM CDT Ashu Arevalo MD LAB BLOOD ORDERABLES Fin al Result OSMIN ESTRADA (ERASMO) 1 [facility] [place] [address] * POCT hemoglobin A1c (04/27/2024 1:05 PM SAND TEMPERER) Hemoglobin A1C, POC 5.9 4.0 - 5.6 % Blood 04/27/2024 1:05 PM SAND TEMPERER us Inna Tsang NP POINT OF CARE TEST ORDERABLES F inal Result * (ABNORMAL) Albumin Creatinine Ratio, Urine (02/23/2024 12:10 PM CDT) Albumin Ur 1,424.9 mg/L Comment: Interpretive Data No reference range established. Current interpretive data was last revised 2018. Testing performed by: [address] [place] [address] Creatinine Ur 128.1 mg/dL [facility] (ERASMO) Comment: Interpretive Data No reference range established. Current interpretive data was last revised 2018. Testing performed by: [address], [place]., [address] Albumin Creatinine Ratio, Ur 1,112(H) 1 - 29 mg/g [facility] (ERASMO) Comment:Testing performed by : [facility], [address] [place] [address]., [address] Urine 02/23/2024 12:1 0 PM CDT 02/23/2024 9:33 PM CDT us Ashu Arevalo MD LAB URINE ORDERABLES Fin al Result OSMIN ESTRADA (ERASMO) 1 [facility] [place] [address] * Dexa Axial Skeleton Bone Density 1 or 2 Site (04/03/2023 12:42 PM SAND TEMPERER) Anatomical Region Laterality Modality Body N/A Other 04/03/2023 1:05 PM SAND TEMPERER Narrative 04/03/2023 1:05 PM SAND TEMPERER EXAM DESCRIPTION: DEXA AXIAL SKELETON BONE DENSITY 1 OR MORE SITES REASON FOR STUDY: 67 y/o year old F with given history of: history of AI therapy Osteoporosis screening 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 MF: TOBIN Report ID: [id number] Reading Location: [place] [address] Procedure Note Vini Kaur MD - 04/03/2023 EXAM DESCRIPTION: DEXA AXIAL SKELETON BONE DENSITY 1 OR MORE SITES REASON FOR STUDY: 67 y/o year old F with given history of: history ofAI therapy Osteoporosis screening Post menopausal Tourist Information Officer/Model: [employer]reads Discovery SL (S/N [id number]) CLINICAL INFORMATION: Current height: 65 inches Maximum [...] Vini Kaur M.D. MF: TOBIN Report ID: [id number] Reading Location: [place] [address] Shaniqua Ellison NP IMHoward DXA PROCEDURES Fi nal Result * Screening Mammogram Right W Wesley Unilateral Only (03/28/2022 2:03 PM SAND TEMPERER) Anatomical Region Laterality Modality Breast Right Mammography Narrative 03/28/2022 3:58 PM SAND TEMPERER Mammogram Technique: Right Breast Digital Breast Tomosynthesis, Unilateral C-view 2D Screening mammogram. Views obtained: bilateral craniocaudal and bilateral mediolateral oblique. Computer Aided Detection was performed. Mammogram Findings: The present examination has been compared to prior imaging studies performed on 02/16/2020, at [facility] on 04/17/2020 and 05/09/2020, and at [facility] on 03/22/2021. The breast [...] prior imaging studies performed on 02/16/2020, at [facility] on 04/17/2020 and 05/09/2020, and at [facility] on 03/22/2021. The breast [...] Most Recently Relevant to Health Maintenance Insurance [facility] MEDICARE ADVANTAGE [id number] IDPA Advance Directives For more information, please contact: [phone] * Full Code (Latest Code Status on [...] 8:34 AM 10/18/2018 8:35 AM Care Teams Log Tumbler Relationship Specialty Start Date End Date Vijay Truong MD [address] [place] [address] PCP - General 08/08/16 Rubén Miranda MD PhD [address] [place] [address] Radiation Oncologist Radiation Oncology 07/27/20 Lila James MD [address] [place] [address] Referring Physician Surgical Oncology 07/27/20 [place] [address] [place] [address] Referring Physician Psychiatry & Neurology 02/05/22 Ash Fraga MD [address] [place] [address] Medical Oncologist/Rolled Glass Crosscutter Hematology and Oncology 06/11/22
--- NOTE | 2024-10-14 13:32 | ED.SKABFB ---
HPI - Skin/Abscess/Foreign Bdy General Chief complaint: Skin/Abscess/Foreign Body Stated complaint: arm pain Time Seen by Provider: 10/14/24 13:06 Source: patient and family Mode of arrival: ambulatory Limitations: no limitations History of Present Illness HPI narrative: Patient is a 68-year-old female with a left arm swelling of that upper extremity for the past 2 days. She has an AV fistula in that arm around the AC fossa. She also has a skin tear on the lateral aspect of the left forearm. She has noted some redness of that left arm. patient has not started dialysis yet since placement of the fistula. She went to [facility] for placement of the fistula. MD complaint: other ( Left upper extremity swelling and redness; av fistula in place 1 and half years ago) Onset (ago): day(s) ( 2) Tetanus up to date: yes Location: LUE Severity: moderate Severity scale (1-10): 3 Quality: aching Pain Consistency: constant Relieving factors: none Exacerbating factors: none Context: other ( left upper extremity swelling and redness over the past 2 days in her dialysis arm.) Associated symptoms: other ( None) Treatments prior to arrival: none Related Data Home Medications ?Medication ?Instructions ?Recorded ?Confirmed ?Last Taken ?Type aspirin 81 mg tablet,delayed 81 mg PO DAILY 09/15/22 09/15/22 Unknown History release atorvastatin 40 mg tablet 40 mg PO DAILY 09/15/22 09/15/22 Unknown History clopidogrel 75 mg tablet 75 mg PO DAILY 09/15/22 09/15/22 Unknown History duloxetine 30 mg capsule,delayed 30 mg PO BID 09/15/22 09/15/22 Unknown History release letrozole 2.5 mg tablet 2.5 mg PO DAILY 09/15/22 09/15/22 Unknown History lisinopril 10 mg tablet 20 mg PO DAILY 09/15/22 09/15/22 Unknown History sertraline 50 mg tablet (Zoloft) 50 mg PO DAILY 09/15/22 09/15/22 Unknown History trazodone 100 mg tablet 100 mg PO HS 09/15/22 09/15/22 Unknown History calcitriol 0.25 mcg capsule 0.25 mcg PO .MWF 10/14/24 Unknown History calcium carb-ergocalciferol (vit 1 tablet PO DAILY 10/14/24 Unknown History D2) 600 mg calcium-200 unit tablet Allergies Allergy/AdvReac Type Severity Reaction Status Date / Time No Known Allergies Allergy Verified 10/14/24 13:15 Review of Systems Review of Systems: All systems reviewed & are unremarkable except as noted in HPI and below Constitutional: Constitutional: Reports no additional constitutional complaints Eyes: Eyes: Reports no additional eye complaints ENT: Reports system reviewed and no additional complaints, except as documented Cardiovascular: Cardiovascular: Reports no additional cardiovascular complaints Respiratory: Respiratory: Reports no additional respiratory complaints Gastrointestinal: Gastrointestinal: Reports no additional gastrointestinal complaints Genitourinary: Genitourinary: Reports no additional female genitourinary complaints Musculoskeletal: Musculoskeletal: Reports no additional musculoskeletal complaints Integumentary/Breasts: Skin/Breast: Reports system reviewed and no additional complaints, except as docu Neurologic: Reports system reviewed and no additional complaints, except as documented Psychiatric: Psychiatric: Reports no additional psychiatric complaints Endocrine: Endocrine: Reports no additional endocrine complaints Hematologic/Lymphatic: Hematologic/Lymphatic: Reports no additional hematologic/lymphatic complaints Allergic/Immunologic: Allergic/Immunologic: Reports no additional allergic/immunologic complaints [facility] Past Medical History Medical History Diabetes mellitus Exam Const: General: healthy appearing Nutritional Appearance: well nourished Orientation/consciousness: patient oriented x3 HENMT: Head: normal to inspection Ears: external ears normal Face/Nose/Sinus: Normal external nose present Eyes: Conjunctivae: conjunctivae normal Pupils: Equal, round and reactive pupils present EOM: EOMs intact bilaterally Neck: Neck: normal visual inspection Chest: Chest palpation & inspection: normal inspection of the chest Resp: Effort & Inspection: normal respiratory effort and not labored Auscultation: clear to auscultation bilaterally and no crackles Cardio: Rate: regular rate Rhythm: regular rhythm Heart sounds: no murmurs GI: Inspection: non-distended Auscultation: normal bowel sounds : General: Yes bladder normal to palpation Back/Spine/Pelvis: Back: no CVA tenderness Skin: General skin exam: normal color Rashes: rash noted Wounds: wound noted Other: left upper extremity has erythema from the wrist to the shoulder region but not completely circumferentially and swelling in the same area; there is a small skin tear on the left lateral aspect of the forearm with a flap; there is pulse in the left AC area for the AV fistula but it appears somewhat weak than a normal response Neuro: General: patient oriented x3 Cranial nerves: Yes Nystagmus not present Speech: normal speech Gait exam (Neuro): Normal gait present Extrem: General: normal to inspection Psych: Mental Status: mental status grossly normal Affect: normal affect Attitude: cooperative Course Vital Signs Vital signs: Vital Signs Temperature 36.7 C 10/14/24 13:05 Pulse Rate 97 10/14/24 13:05 Respiratory Rate 20 10/14/24 13:05 Blood Pressure 154/82 H 10/14/24 13:05 Pulse Oximetry 100 10/14/24 13:05 Oxygen Delivery Room Air 10/14/24 13:05 Temperature 36.7 C 10/14/24 13:05 Pulse Rate 97 10/14/24 13:05 Respiratory Rate 20 10/14/24 13:05 Blood Pressure 154/82 H 10/14/24 13:05 Pulse Oximetry 100 10/14/24 13:05 Oxygen Delivery Room Air 10/14/24 13:05 MDM - Skin/Abscess/Foreign Bdy MDM Narrative Medical decision making narrative: Patient is a 68-year-old female with a left forearm and arm swelling and erythema over the past 2 days. She has a AV fistula. We will transfer to ER in [facility] per protocol. We do not have ultrasound today. I discussed the case with ER nurse practitioner. Rule out for DVT is needed today. Discharge Plan Discharge Clinical Impression: Arm edema Cellulitis Qualifiers: Site of cellulitis: extremity Site of cellulitis of extremity: upper extremity Laterality: left Qualified Code(s): L03.114 - Cellulitis of left upper limb Patient Disposition: Acute Care Hospital Condition: Stable Patient Language: Hebrew Prescriptions: No Action calcium carbonate-vitamin D2 600 mg calcium- 200 unit tablet 1 tablet PO DAILY calcitriol 0.25 mcg capsule 0.25 mcg PO .MWF atorvastatin 40 mg tablet 40 mg PO DAILY clopidogrel 75 mg tablet 75 mg PO DAILY aspirin 81 mg tablet,delayed release (DR/EC) 81 mg PO DAILY trazodone 100 mg tablet 100 mg PO HS lisinopril 10 mg tablet 20 mg PO DAILY letrozole 2.5 mg tablet 2.5 mg PO DAILY sertraline [Zoloft] 50 mg tablet 50 mg PO DAILY duloxetine 30 mg capsule,delayed release(DR/EC) 30 mg PO BID Follow-up/Referrals: Harms,Vijay Ortiz M.D. [Primary Care Provider] - Time of Disposition: 13:41
== END 2024-10-14 13:46 | disposition short-term general hospital (02) ==
PROVIDERS: Emergency Provider Emergency Medicine; PCP Family Medicine
DX: L03.114 Cellulitis of left upper limb (principal); R60.0 Localized edema; E11.9 Type 2 diabetes mellitus without complications
CPT/HCPCS: 99285

== ENCOUNTER 2024-10-14 14:27 | Inpatient (IN) | payer MEDICARE, MEDICAID, SELFPAY ==
[2024-10-14] VITALS (14 sets, daily range): BP systolic 119–165; BP diastolic 62–98; PULSE 83–97; RESP 18–30; TEMP 36.6–36.8; O2SAT 96–100; BMI 23.9
--- NOTE | ~2024-10-14 | US_ITS ---
EXAMINATION: US venous doppler [facility] DATE: 10/14/2024 15:42 INDICATION: Left swollen arm TECHNIQUE: Douglas scale images with and without compression and Doppler images of the left upper extrem ity veins were obtained. COMPARISON: None. FINDINGS: The left internal jugular vein, subclavian vein, axillary vein, brachial veins, basilic vein, cephali c vein, radial vein, and ulnar vein are patent. IMPRESSION: 1. Patent left upper extremity veins. No evidence of deep venous thrombosis. Reviewed, dictated and finalized at location A.
--- NOTE | ~2024-10-14 | NM_ITS ---
EXAMINATION: NM lung vent and perfusion DATE: 10/17/2024 13:49 INDICATION: Pneumonia. Dyspnea. TECHNIQUE: 10.3 mCi xenon-133 by inhalation and 4 mCi Tc-99m MAA by intravenous route. Scintigraphic images of the chest were obtained. COMPARISON: Chest radiograph dated 10/17/2024 FINDINGS: There is homogeneous radiotracer activity throughout the lungs on the single breath ventilation seque nce. There is relatively homogeneous perfusion throughout the lungs. No discrete ventilation and pe rfusion mismatch is identified. IMPRESSION: 1. Normal study. Very low probability for pulmonary embolism. Reviewed, dictated and finalized at location A.
--- NOTE | ~2024-10-14 | XR_ITS ---
Portable chest x-ray Comparison: 10/14/2024 Clinical History: Shortness of breath Findings: Lungs are clear, without focal consolidation or pleural effusion. Cardiomediastinal silho uette is stable. Bones and soft tissues are unremarkable. Impression: Normal chest. Reviewed, dictated and finalized at location . Impression: Normal chest.
--- NOTE | ~2024-10-14 | XR_ITS ---
XR chest 2V 10/14/2024 15:36 Indication: Shortness of breath Procedure: PA and lateral views of the chest Comparison: 09/15/2022 Findings: Left upper lobe infiltrate, suspicious for pneumonia. Heart size normal. Right lung clear. No pleural effusion or pneumothorax. Impression: 1: Left upper lobe infiltrate, suspicious for pneumonia. Reviewed, dictated and finalized at location A. Impression: 1: Left upper lobe infiltrate, suspicious for pneumonia.
--- OUTSIDE RECORDS SUMMARY | 2024-10-14 14:29 | XMS_ITS ---
Author Organization [facility] Address [address] [place] [address] Care Team Providers Care Test Clerk Name Role Phone Vijay Truong MD Primary Care Provider [phone] Rubén Miranad MD PhD Unavailable [phone] Lila James MD Unavailable [phone] Emile Berger MD Unavailable [phone] Ash Fraga MD Unavailable [phone] Active Problems Problem Noted Date Diagnosed Date Screening mammogram for breast cancer 09/15/2024 Assessment & Plan (09/15/2024 1:30 PM CDT): Mammogram ordered. Will plan accordingly once results are received. Lung nodule 03/17/2024 Assessment & Plan (03/17/2024 7:38 AM WEATHER FORCASTER): Stable. Following with pulmonology and will continue to do so. Hypertension associated with diabetes 03/17/2024 Assessment & Plan (09/15/2024 1:29 PM CDT): Well controlled on lisinopril. Will continue to monitor. Assessment & Plan (04/27/2024 1:21 PM WEATHER FORCASTER): This is a chronic condition which is not at goal on arrival. At goal after rest. Goal is less than 140/90 Continue lisinopril, Lasix Encouraged to monitor weight and B/P at home. Assessment & Plan (03/17/2024 7:39 AM WEATHER FORCASTER): Normotensive. Continue lisinopril. Will continue to monitor. Colon cancer screening 03/17/2024 Assessment & Plan (03/17/2024 7:39 AM WEATHER FORCASTER): Referral to GI for screening colonoscopy placed History of colonic polyps 03/17/2024 Encounter for screening colonoscopy 03/17/2024 Anemia of chronic renal failure, stage 4 (severe ) 03/07/2024 Assessment & Plan (09/15/2024 1:29 PM CDT): Renal function stable. Anemia improving. Continues following closely with Nephrology. Assessment & Plan (03/17/2024 7:36 AM WEATHER FORCASTER): Stable. Following with Nephrology and will continue [...] Lasix Assessment & Plan (04/06/2023 3:42 PM WEATHER FORCASTER): This is a chronic condition which is [...] atorvastatin. Assessment & Plan (06/19/2022 2:08 PM WEATHER FORCASTER): This is a chronic condition which is [...] 01/17/2022 Assessment & Plan (03/17/2024 7:36 AM WEATHER FORCASTER): Visit preventive in nature. We reviewed medications, [...] 21 Assessment & Plan (04/09/2021 5:57 PM WEATHER FORCASTER): Vaccine given in office today. Reviewed possible [...] cooking Assessment & Plan (05/16/2022 5:25 PM WEATHER FORCASTER): Weights stable. Working on diet and exercise, previously riding stationary bike. Assessment & Plan (01/17/2022 10:16 AM CDT): Discussed healthy diet and importance of regular physical activity. Assessment & Plan (10/13/2021 1:35 PM CDT): Congratulated patient on her efforts to improve diet. Discussed healthy diet and importance of regular physical activity. Assessment & Plan (07/11/2021 11:00 AM WEATHER FORCASTER): Discussed healthy diet and importance of regular physical activity. Assessment & Plan (04/09/2021 5:57 PM WEATHER FORCASTER): Discussed healthy diet and importance of regular [...] bedtime. Assessment & Plan (05/17/2020 1:10 PM WEATHER FORCASTER): Omeprazole refilled. Reviewed provocative foods to avoid: caffeine, citrus, ETOH, carbonated drinks, fried/fatty/fast foods & rich/creamy sauces. Reviewed diet/exercise recommendations: 20-30min physicaly activity daily at minimum. Reviewed med Ses & scheduling. Weight loss will help improve GERD sxs. Keep HOB elevated 30 degrees & not eat 2-3 hrs before bedtime. Regional lymph node metastasis present Assessment & Plan (05/17/2020 1:09 PM WEATHER FORCASTER): L axillary lymph node. Anxious re: new L breast ca dx. Anxious re: pending treatments. Discussed at length during appt. Copies of recent screening/diagnostic mamm & ultrasound of L breast given to mrs Mejia. Discussed lymph node involvement. Referral placed to Dr James at [facility]. Aware that her office will call [...] from 05/09/2020:Stage IIA(cT2, cN1(f), cM0, G1, ER+, MT+, HER2-) - Signed by Rubén Miranda MD PhD on 07/27/2020 Pathologic stage from 07/02/2020:Stage IA(pT2, pN1a(sn), cM0, G1, ER+, MT+, HER2- ) - Signed by Rubén Miranda MD PhD on 07/27/2020 Assessment & Plan (01/17/2022 10:19 AM CDT): Assessment & Plan (04/09/2021 6:01 PM WEATHER FORCASTER): Follows with oncology, continues letrozone. To have [...] necessary. Assessment & Plan (05/17/2020 1:08 PM WEATHER FORCASTER): Anxious re: new L breast ca dx. Anxious re: pending treatments. Discussed at length during appt. Copies of recent screening/diagnostic mamm & ultrasound of L breast given to mrs Mejia. Discussed lymph node involvement. Referral placed to Dr James at [facility]. Aware that her office will call [...] continue. Assessment & Plan (04/27/2024 1:21 PM WEATHER FORCASTER): This is a chronic condition which is at goal . Goal is LDL less than 70 Continue atorvastatin Encouraged to eat healthy, include fresh fruits and vegetables daily and avoid eating fried foods more than once per week. Assessment & Plan (03/17/2024 7:36 AM WEATHER FORCASTER): Stable. Continue atorvastatin. Tolerating without side effects. Will continue to monitor. Assessment & Plan (01/13/2024 12:49 PM CDT): This is a chronic condition which is at goal . Goal is LDL less than 70 Continue atorvastatin Encouraged to eat healthy, include fresh fruits and vegetables daily and avoid eating fried foods more than once per week. Assessment & Plan (04/06/2023 3:43 PM WEATHER FORCASTER): This is a chronic condition which is [...] prescribed. Assessment & Plan (06/19/2022 2:10 PM WEATHER FORCASTER): This is a chronic condition which is not at goal of LDL less than 70 Continue atorvastatin Encouraged to eat healthy, include fresh fruits and vegetables daily and avoid eating fried foods more than once per week. Encouraged to take medications as prescribed. Assessment & Plan (05/16/2022 5:17 PM WEATHER FORCASTER): Continue current regimen. Assessment & Plan (01/17/2022 10:16 AM CDT): 01/10/22 TC 186 TRG 421 HDL 29 LDL 90 Continue current regimen, recommended fish oil supplementation and following low fat diet. Will repeat labs prior to next office visit. Assessment & Plan (10/13/2021 1:35 PM CDT): Continue atorvastatin daily. Assessment & Plan (07/11/2021 11:16 PM WEATHER FORCASTER): Reviewed previous lipid panel. Doing well on atorvastatin 40 mg daily, denies any medication side effects. Assessment & Plan (04/09/2021 6:00 PM WEATHER FORCASTER): Results for orders placed or performed in [...] & Plan (08/16/2020 11:24 AM CDT): 12/22/18 QH=213 HDL=43 RJ=198 LDL=88 TC/HDL=4.74 07/04/19 TC=78 HDL=32 UY=327 HHG=712 TC/HDL=10.3 11/07/19 NT=962 DL=27 XX=628 BQH=162 CALC TC/HDL=12.0 to lab 02/09/20 WN=470 HDL=38 KL=169 LDL=92 TC/HLD=5.0 The 10-year ASCVD risk score ([place] BARRY Jr., et al., 2013) is: 11.5% [...] flags. Assessment & Plan (05/17/2020 1:10 PM WEATHER FORCASTER): We will check labs and make adjustments [...] 10/25/21. Assessment & Plan (05/16/2022 5:23 PM WEATHER FORCASTER): Following with nephrology. Discussed importance of well controlled blood pressure and diabetes management. Assessment & Plan (01/17/2022 9:44 AM CDT): 09/18/20 GFR=17 11/08/20 GFR=26 02/14/21 GFR=22 10/01/21 GFR=27 01/10/22 GFR=20 Following with nephrology. Assessment & Plan (10/13/2021 1:41 PM CDT): 09/18/20 GFR=17 11/08/20 GFR=26 02/14/21 GFR=22 10/01/21 GFR=27 Scheduled with nephrology 10/25/21. Assessment & Plan (04/09/2021 5:59 PM WEATHER FORCASTER): 09/18/20 GFR=17 11/08/20 GFR=26 02/14/21 GFR=22 Updated [...] function. Assessment & Plan (05/17/2020 1:11 PM WEATHER FORCASTER): GFR 11/07/19=35 GFR 02/09/20=35. Has been stable. [...] 11/06/2019 Assessment & Plan (05/16/2022 5:23 PM WEATHER FORCASTER): Lab Results Component Value Date HGBA1C 9.9 [...] 04/09/2021 Assessment & Plan (07/11/2021 11:17 PM WEATHER FORCASTER): Lab Results Component Value Date HGBA1C 10.5 07/11/2021 HGBA1C 9.7 04/09/2021 HGBA1C 11.7 01/07/2021 Patient agreeable to meet with adaptive physical educator to discuss healthy food choices to improve blood glucose. Referral placed. Will start basal insulin 10 units nightly, reviewed medication administration, follow up in 3 months and bring copy of blood sugar log to next apt. Reviewed s/s of hypo/hypergylcemia. Assessment & Plan (04/09/2021 6:08 PM WEATHER FORCASTER): Lab Results Component Value Date HGBA1C 9.7 [...] month Assessment & Plan (05/17/2020 1:09 PM WEATHER FORCASTER): Lab Results Component Value Date HGBA1C 9.6 [...] evaluation. Last eye exam december [address] [facility]. Letter sent to get copy of [...] 04/09/2021 Assessment & Plan (04/27/2024 1:21 PM WEATHER FORCASTER): This is a chronic condition which is [...] lisinopril. Assessment & Plan (03/17/2024 7:35 AM WEATHER FORCASTER): Improving. Continue following with endocrinology. Red flags reviewed. Hypertensive disorder 07/04/2019 Overview (05/19/2023): Last Assessment & Plan: Stable; continue current medication regimen. Assessment & Plan (04/06/2023 3:43 PM WEATHER FORCASTER): This is a chronic condition which is [...] prescribed. Assessment & Plan (06/19/2022 2:09 PM WEATHER FORCASTER): This is a chronic condition which is at goal of less than 140/90 Hypotension 94/48 Personally reviewed labs. Decrease lisinopril to 10 mg p.o. daily Encouraged to take medications as prescribed. Assessment & Plan (05/16/2022 5:23 PM WEATHER FORCASTER): Blood pressure well controled today. No changes in current regimen. Assessment & Plan (01/17/2022 10:14 AM CDT): Condition is stable Discussed/ordered labs, encouraged healthy, low carbohydrate lifestyle and at least 150min/week of exercise, continue on lisinopril 20 mg daily. BP checked by myself 118/80 Assessment & Plan (10/13/2021 1:41 PM CDT): Stable; continue current medication regimen. Assessment & Plan (07/11/2021 11:17 PM WEATHER FORCASTER): BP well controlled today. No changes in current medication regimen. Assessment & Plan (04/09/2021 6:10 PM WEATHER FORCASTER): Patient encouraged to take BP medication as [...] received. Assessment & Plan (05/17/2020 1:09 PM WEATHER FORCASTER): Does not check BP at home. The [...] (09/29/2018): Added automatically from request for surgery [id number] Fibromyalgia 01/01/2017 Assessment & Plan (03/17/2024 7:36 AM WEATHER FORCASTER): Stable on duloxetine. No changes. Will continue to monitor. Primary osteoarthritis involving multiple joints 01/01/2017 Major depressive disorder 01/01/2017 Assessment & Plan (07/11/2021 11:04 AM WEATHER FORCASTER): Managed by Dr. Berger at [facility], following up every 3 months. Continues seeing therapist once monthly. Discussed increasing frequency of counseling to once weekly if able. PHQ today 21. Discussed importance of regular exercise/ healthy diet and general healthy lifestyle to improve moods. Lives at home with son and two grandsons. Reports supportive family. Denies any SI/HI. Assessment & Plan (04/09/2021 10:47 AM WEATHER FORCASTER): PHQ=19 (worsening with breast CA diagnosis) Hydroxyzine 25mg q6hr prn, risperidone 2mg nightly, trazodone 100mg nightly, duloxetine DR 60mg daily, amitriptyline 25mg nightly. Managed by Dr Berger at [facility]. Sees him q3mos. Also sees therapist Kay at [facility]. Denies suicidal/homicidal ideation. Assessment & Plan (08/16/2020 11:22 AM CDT): Hydroxyzine 25mg q6hr prn, risperidone 2mg nightly, trazodone 100mg nightly, duloxetine DR 60mg daily, amitriptyline 25mg nightly. Managed by Dr Berger at [facility]. Doing phone visits with him q3mos. Also with therapist Kay at [facility]. Reports good control of depression w/current regimen. No changes to be made at this time. Reviewed med Ses & scheduling. Reviewed red flags. Assessment & Plan (02/09/2020 9:30 AM CDT): Following w/Dr Berger at [facility] every 3 months. following w/monthly therapy appts w/Mellisa Davidson at [facility]. Verified current medications. Will fax lab results to Dr Berger at [facility] once completed. Reports good control of depression w/current regimen. No changes to be made at this time. Reviewed med Ses & scheduling. Reviewed red flags. Assessment & Plan (11/07/2019 10:00 AM CDT): Followed by Dr Berger at [facility]. Reports good control of depression w/current [...] 21 Assessment & Plan (05/17/2020 1:11 PM WEATHER FORCASTER): Discussed healthy diet and importance of regular [...] healthier, we can set up appointment with secretary office clerk/lead systems analyst. 3. Have an active lifestyle, strive [...] & Plan (11/07/2019 10:01 AM CDT): 12/22/18 LZ=813 HDL=43 WU=730 LDL=88 TC/HDL=4.74 07/04/19 TC=78 HDL=32 LB=790 LGN=071 TC/HDL=10.3 11/07/19 FC=275 DL=27 IU=492 ZFE=250 CALC TC/HDL=12.0 Copy of today's lipid panel given to mrs Mejia. Will have tests verified/repeated at lab today. Aware that atorvastatin will need increased if lipid panel elevated.
--- OUTSIDE RECORDS SUMMARY | 2024-10-14 14:30 | XMS_ITS | Continuity of Care Document ---
Author Organization [facility] Address [address] [place] [phone] Phone Care Team Providers Care Basket Mender Name Role Phone Joaquín CHING, Elsa Unavailable [...] Diagnoses Date Provider Providers Copied on Encounter [facility], [address] [place] [address], [id number], tel:[phone] [facility] No Information Joaquín Hunter. [address] [place] [address], [id number], . tel:[phone] [facility], [address] [place] [address], [id number], tel:[phone] [facility] Joaquín Wrgihtca. [address] [place] [address], [id number], . tel:[phone] Referring Provider: Ashu Yusuf, [address] [place] [address] [address], [place], [address]. tel:[phone] [facility], [address] [place] [address], [id number], tel:[phone] [facility] Joaquín Wrightca. [address] [place] [address], [id number], . tel:[phone] Referring Provider: Ashu Yusuf, [address] [facility] [address], [place], [address]. tel:[phone] As per patient privacy policy some of the clinical information may not be visible. Family History Family Member Type Diagnosis Age At Onset No Information Payers Payer name Insurance type Covered alliance party ID Authoriza tion(s) [facility] [employer] Ad[employer] CI [id number] Social History Type Description Quantity Date Captured Comments Sex Female Smoking Status No Information Sexual Orientation Straight or heterosexual Gender Identity Female Chief Complaint And Reason For Visit No Information Reason For Referral Reason For Referral No Information Plan Of Treatment Date Type Action Status Future Order: Radiology Order Up per Body Flouroscopy ([id number]), Ordered on: Ordered History Of Present Illness Encounter Date Complaint History Of Prese nt Illness No Information Functional Status Date Functional Assessmen t No Information Instructions Date Instruction Additional Infor mation No Information Assessments Type Assessment Date No Information Patient Care Teams Name Effective Dates (start - stop) Status Members No Information
--- OUTSIDE RECORDS SUMMARY | 2024-10-14 14:30 | XMS_ITS | Encounter Summary ---
Author Organization [facility] Address [address] [place] [address] Care Team Providers Care Commodity Industry Analyst Name Role Phone Vijay Truong MD Primary Care Provider [phone] Rubén Miranda MD PhD Unavailable [phone] Lila James MD Unavailable [phone] Emile Berger MD Unavailable [phone] Ash Fraga MD Unavailable [phone] Encounter Details Date Type Department Care Team (Latest Contact Info) Description 08/28/2024 Results Follow-Up [facility] Gastroenterology at [address] [place] [address] Nathan Brooks, [address] [place] [address] Surgical pathology Social History Tobacco Use Types [...] week 06/26/2022 How often do you attend [facility] or caoda[facility] services? More than 4 times per year [...] place to sleep or slept in a care home (including now)? 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 Gender Identity Not on file Sexual Orientation Not on file documented as of this encounter Plan of Treatment Not on file documented as of this encounter Visit Diagnoses Not on filedocumented in this encounter Care Teams Commodity Industry Analyst Relationship Specialty Start Date End Date Vijay Truong MD [address] [place] [address] PCP - General 08/08/16 Rubén Miranda MD PhD [address] [place] [address] Radiation Oncologist Radiation Oncology 07/27/20 [place] [address] [place] [address] Referring Physician Surgical Oncology 07/27/20 Emile Berger MD [address] [place] [address] Referring Physician Psychiatry & Neurology 02/05/22 Ash Fraga MD [address] [place] [address] Medical Oncologist/Drill Press Operator Numerical Control Hematology and Oncology 06/11/22 documented as of this encounter
--- OUTSIDE RECORDS SUMMARY | 2024-10-14 14:30 | XMS_ITS | Encounter Summary ---
Author Organization [facility] Healthcare Address [address] [place] [address] Care Team Providers Care Seasonal Customer Service Associate Name Role Phone Vijay Truong MD Primary Care Provider [phone] Rubén Miranda MD PhD Unavailable [phone] Lila James MD Unavailable [phone] Emile Berger MD Unavailable [phone] Ash Fraga MD Unavailable [phone] Encounter Details Date Type Department Care Team (Late st Contact Info) Description 10/13/2024 Orders Only [facility] [address] [facility] [place] [address] ProviderRadha MD [address] [place], [place] [id number] Social History Tobacco Use Types Packs/Day Years [...] often do you attend chur ch or jain services? 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 Gender Identity Not on file Sexual Orientation [...] on filedocumented in this encounter Care Teams Seasonal Customer Service Associate Relationship Specialty Start Date End Date Vijay Truong MD [address] [place] [address] PCP - General 08/08/16 Rubén Miranda MD PhD [address] [place] [address] Radiation Oncologist Radiation Oncology 07/27/20 [place] [address] [place] [address] Referring Physician Surgical Oncology 07/27/20 Emile Berger MD [address] [place] [address] Referring Physician Psychiatry & Neurology 02/05/22 Ash Fraga MD [address] [place] [address] Medical Oncologist/Altitude Chamber Technician Hematology and Oncology 06/11/22 documented as of this encounter
--- OUTSIDE RECORDS SUMMARY | 2024-10-14 14:30 | XMS_ITS | Clinical Summary ---
Author Organization [facility] Facility Address [address] [place] [address] Care Team Providers Care Herb Digger Name Role Phone Vijay Truong Primary Care Provider [phone] Allergies No known active allergies Medications * [...] & Plan: Managed by Dr. Berger at [facility], following up every 3 months. [...] Description 08/19/2024 12:30 PM CDT Office Visit [facility] [address] [place] [address] [phone] Ashu Arevalo MD Chronic kidney disease stage 4 (HCC) (Primary Dx) 08/08/2024 Office Communication [facility] [address] [place] [phone] Ashu Arevalo MD from Last 3 Months [...] Description 12/09/2024 11:30 AM CDT Office Visit [facility], [facility] [address] [place] [phone] Ashu Arevalo MD [address] [facility] [address] [place] [address] Health Maintenance Due Date Last Done Comments [...] Most Recently Relevant to Health Maintenance Insurance [facility] Medicare Care Teams Herb Digger Relationship Specialty Start Date End [place] [id number] PCP - General Internal Medicine 12/13/21
--- OUTSIDE RECORDS SUMMARY | 2024-10-14 14:30 | XMS_ITS | Clinical Summary ---
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 E11.65 [...] slipidemia associated with type 2 diabetes mellitus ([facility]) Take 1 tablet (40 mg total) by mouth daily 90 tablet 4 03/17/20 24 Active lisinopriL (PRINIVIL,ZESTRIL) 10 mg tabletIndications:Hy pertension associated with diabetes ([facility]) Take 2 tablets (20 mg total) by mouth daily 180 tablet 3 03/17/20 24 Active insulin glargine 100 unit/mL (3 mL) pen for injectionIndications :Type 2 diabetes mellitus with hypoglycemia without coma, with long-term current use of insulin ([facility]) Inject 18 Units under the skin [...] 03/17/2024 Assessment & Plan (03/17/2024 7:38 AM SUPERVISOR BEATER ROOM): Stable. Following with pulmonology and will continue to do so. Hypertension associated with diabetes 03/17/2024 Assessment & Plan (09/15/2024 1:29 PM CDT): Well controlled on lisinopril. Will continue to monitor. Assessment & Plan (04/27/2024 1:21 PM SUPERVISOR BEATER ROOM): This is a chronic condition which is not at goal on arrival. At goal after rest. Goal is less than 140/90 Continue lisinopril, Lasix Encouraged to monitor weight and B/P at home. Assessment & Plan (03/17/2024 7:39 AM SUPERVISOR BEATER ROOM): Normotensive. Continue lisinopril. Will continue to monitor. Colon cancer screening 03/17/2024 Assessment & Plan (03/17/2024 7:39 AM SUPERVISOR BEATER ROOM): Referral to GI for screening colonoscopy placed History of colonic polyps 03/17/2024 Encounter for screening colonoscopy 03/17/2024 Anemia of chronic renal failure, stage 4 (severe ) 03/07/2024 Assessment & Plan (09/15/2024 1:29 PM CDT): Renal function stable. Anemia improving. Continues following closely with Nephrology. Assessment & Plan (03/17/2024 7:36 AM SUPERVISOR BEATER ROOM): Stable. Following with Nephrology and will continue [...] Lasix Assessment & Plan (04/06/2023 3:42 PM SUPERVISOR BEATER ROOM): This is a chronic condition which is [...] atorvastatin. Assessment & Plan (06/19/2022 2:08 PM SUPERVISOR BEATER ROOM): This is a chronic condition which is [...] 01/17/2022 Assessment & Plan (03/17/2024 7:36 AM SUPERVISOR BEATER ROOM): Visit preventive in nature. We reviewed medications, [...] 21 Assessment & Plan (04/09/2021 5:57 PM SUPERVISOR BEATER ROOM): Vaccine given in office today. Reviewed possible [...] cooking Assessment & Plan (05/16/2022 5:25 PM SUPERVISOR BEATER ROOM): Weights stable. Working on diet and exercise, previously riding stationary bike. Assessment & Plan (01/17/2022 10:16 AM CDT): Discussed healthy diet and importance of regular physical activity. Assessment & Plan (10/13/2021 1:35 PM CDT): Congratulated patient on her efforts to improve diet. Discussed healthy diet and importance of regular physical activity. Assessment & Plan (07/11/2021 11:00 AM SUPERVISOR BEATER ROOM): Discussed healthy diet and importance of regular physical activity. Assessment & Plan (04/09/2021 5:57 PM SUPERVISOR BEATER ROOM): Discussed healthy diet and importance of regular [...] bedtime. Assessment & Plan (05/17/2020 1:10 PM SUPERVISOR BEATER ROOM): Omeprazole refilled. Reviewed provocative foods to avoid: caffeine, citrus, ETOH, carbonated drinks, fried/fatty/fast foods & rich/creamy sauces. Reviewed diet/exercise recommendations: 20-30min physicaly activity daily at minimum. Reviewed med Ses & scheduling. Weight loss will help improve GERD sxs. Keep HOB elevated 30 degrees & not eat 2-3 hrs before bedtime. Regional lymph node metastasis present Assessment & Plan (05/17/2020 1:09 PM SUPERVISOR BEATER ROOM): L axillary lymph node. Anxious re: new L breast ca dx. Anxious re: pending treatments. Discussed at length during appt. Copies of recent screening/diagnostic mamm & ultrasound of L breast given to mrs Perez. Discussed lymph node involvement. Referral placed to Dr James at [facility]. Aware that her office will [...] from 05/09/2020:Stage IIA(cT2, cN1(f), cM0, G1, ER+, NC+, HER2-) - Signed by Rubén Miranda MD PhD on 07/27/2020 Pathologic stage from 07/02/2020:Stage IA(pT2, pN1a(sn), cM0, G1, ER+, NC+, HER2- ) - Signed by Rubén Miranda MD PhD on 07/27/2020 Assessment & Plan (01/17/2022 10:19 AM CDT): Assessment & Plan (04/09/2021 6:01 PM SUPERVISOR BEATER ROOM): Follows with oncology, continues letrozone. To have [...] necessary. Assessment & Plan (05/17/2020 1:08 PM SUPERVISOR BEATER ROOM): Anxious re: new L breast ca dx. Anxious re: pending treatments. Discussed at length during appt. Copies of recent screening/diagnostic mamm & ultrasound of L breast given to mrs Perez. Discussed lymph node involvement. Referral placed to Dr James at [facility]. Aware that her office will [...] continue. Assessment & Plan (04/27/2024 1:21 PM SUPERVISOR BEATER ROOM): This is a chronic condition which is at goal . Goal is LDL less than 70 Continue atorvastatin Encouraged to eat healthy, include fresh fruits and vegetables daily and avoid eating fried foods more than once per week. Assessment & Plan (03/17/2024 7:36 AM SUPERVISOR BEATER ROOM): Stable. Continue atorvastatin. Tolerating without side effects. Will continue to monitor. Assessment & Plan (01/13/2024 12:49 PM CDT): This is a chronic condition which is at goal . Goal is LDL less than 70 Continue atorvastatin Encouraged to eat healthy, include fresh fruits and vegetables daily and avoid eating fried foods more than once per week. Assessment & Plan (04/06/2023 3:43 PM SUPERVISOR BEATER ROOM): This is a chronic condition which is [...] prescribed. Assessment & Plan (06/19/2022 2:10 PM SUPERVISOR BEATER ROOM): This is a chronic condition which is not at goal of LDL less than 70 Continue atorvastatin Encouraged to eat healthy, include fresh fruits and vegetables daily and avoid eating fried foods more than once per week. Encouraged to take medications as prescribed. Assessment & Plan (05/16/2022 5:17 PM SUPERVISOR BEATER ROOM): Continue current regimen. Assessment & Plan (01/17/2022 10:16 AM CDT): 01/10/22 TC 186 TRG 421 HDL 29 LDL 90 Continue current regimen, recommended fish oil supplementation and following low fat diet. Will repeat labs prior to next office visit. Assessment & Plan (10/13/2021 1:35 PM CDT): Continue atorvastatin daily. Assessment & Plan (07/11/2021 11:16 PM SUPERVISOR BEATER ROOM): Reviewed previous lipid panel. Doing well on atorvastatin 40 mg daily, denies any medication side effects. Assessment & Plan (04/09/2021 6:00 PM SUPERVISOR BEATER ROOM): Results for orders placed or performed in [...] & Plan (08/16/2020 11:24 AM CDT): 12/22/18 AS=466 HDL=43 LP=018 LDL=88 TC/HDL=4.74 07/04/19 TC=78 HDL=32 YA=956 ZIE=903 TC/HDL=10.3 11/07/19 IH=662 DL=27 IQ=080 UWE=575 CALC TC/HDL=12.0 to lab 02/09/20 NN=285 HDL=38 FE=992 LDL=92 TC/HLD=5.0 The 10-year ASCVD risk score [...] flags. Assessment & Plan (05/17/2020 1:10 PM SUPERVISOR BEATER ROOM): We will check labs and make adjustments [...] 10/25/21. Assessment & Plan (05/16/2022 5:23 PM SUPERVISOR BEATER ROOM): Following with nephrology. Discussed importance of well controlled blood pressure and diabetes management. Assessment & Plan (01/17/2022 9:44 AM CDT): 09/18/20 GFR=17 11/08/20 GFR=26 02/14/21 GFR=22 10/01/21 GFR=27 01/10/22 GFR=20 Following with nephrology. Assessment & Plan (10/13/2021 1:41 PM CDT): 09/18/20 GFR=17 11/08/20 GFR=26 10 GFR=22 10/01/21 GFR=27 Scheduled with nephrology 10/25/21. Assessment & Plan (04/09/2021 5:59 PM SUPERVISOR BEATER ROOM): 09/18/20 GFR=17 11/08/20 GFR=26 02/14/21 GFR=22 Updated [...] function. Assessment & Plan (05/17/2020 1:11 PM SUPERVISOR BEATER ROOM): GFR 11/07/19=35 GFR 02/09/20=35. Has been stable. [...] 11/06/2019 Assessment & Plan (05/16/2022 5:23 PM SUPERVISOR BEATER ROOM): Lab Results Component Value Date HGBA1C 9.9 [...] 04/09/2021 Assessment & Plan (07/11/2021 11:17 PM SUPERVISOR BEATER ROOM): Lab Results Component Value Date HGBA1C 10.5 07/11/2021 HGBA1C 9.7 04/09/2021 HGBA1C 11.7 01/07/2021 Patient agreeable to meet with stallion manager to discuss healthy food choices to improve blood glucose. Referral placed. Will start basal insulin 10 units nightly, reviewed medication administration, follow up in 3 months and bring copy of blood sugar log to next apt. Reviewed s/s of hypo/hypergylcemia. Assessment & Plan (04/09/2021 6:08 PM SUPERVISOR BEATER ROOM): Lab Results Component Value Date HGBA1C 9.7 [...] month Assessment & Plan (05/17/2020 1:09 PM SUPERVISOR BEATER ROOM): Lab Results Component Value Date HGBA1C 9.6 [...] evaluation. Last eye exam december 2018 at [facility]. Letter sent to get copy of [...] 04/09/2021 Assessment & Plan (04/27/2024 1:21 PM SUPERVISOR BEATER ROOM): This is a chronic condition which is [...] lisinopril. Assessment & Plan (03/17/2024 7:35 AM SUPERVISOR BEATER ROOM): Improving. Continue following with endocrinology. Red flags reviewed. Hypertensive disorder 07/04/2019 Overview (05/19/2023): Last Assessment & Plan: Stable; continue current medication regimen. Assessment & Plan (04/06/2023 3:43 PM SUPERVISOR BEATER ROOM): This is a chronic condition which is [...] prescribed. Assessment & Plan (06/19/2022 2:09 PM SUPERVISOR BEATER ROOM): This is a chronic condition which is at goal of less than 140/90 Hypotension 94/48 Personally reviewed labs. Decrease lisinopril to 10 mg p.o. daily Encouraged to take medications as prescribed. Assessment & Plan (05/16/2022 5:23 PM SUPERVISOR BEATER ROOM): Blood pressure well controled today. No changes in current regimen. Assessment & Plan (01/17/2022 10:14 AM CDT): Condition is stable Discussed/ordered labs, encouraged healthy, low carbohydrate lifestyle and at least 150min/week of exercise, continue on lisinopril 20 mg daily. BP checked by myself 118/80 Assessment & Plan (10/13/2021 1:41 PM CDT): Stable; continue current medication regimen. Assessment & Plan (07/11/2021 11:17 PM SUPERVISOR BEATER ROOM): BP well controlled today. No changes in current medication regimen. Assessment & Plan (04/09/2021 6:10 PM SUPERVISOR BEATER ROOM): Patient encouraged to take BP medication as [...] received. Assessment & Plan (05/17/2020 1:09 PM SUPERVISOR BEATER ROOM): Does not check BP at home. The [...] (09/29/2018): Added automatically from request for surgery [id number] Fibromyalgia 01/01/2017 Assessment & Plan (03/17/2024 7:36 AM SUPERVISOR BEATER ROOM): Stable on duloxetine. No changes. Will continue to monitor. Primary osteoarthritis involving multiple joints 01/01/2017 Major depressive disorder 01/01/2017 Assessment & Plan (07/11/2021 11:04 AM SUPERVISOR BEATER ROOM): Managed by Dr. Berger at [facility], following up every 3 months. Continues seeing therapist once monthly. Discussed increasing frequency of counseling to once weekly if able. PHQ today 21. Discussed importance of regular exercise/ healthy diet and general healthy lifestyle to improve moods. Lives at home with son and two grandsons. Reports supportive family. Denies any SI/HI. Assessment & Plan (04/09/2021 10:47 AM SUPERVISOR BEATER ROOM): PHQ=19 (worsening with breast CA diagnosis) Hydroxyzine 25mg q6hr prn, risperidone 2mg nightly, trazodone 100mg nightly, duloxetine DR 60mg daily, amitriptyline 25mg nightly. Managed by Dr Berger at [facility]. Sees him q3mos. Also sees therapist Kay at [facility]. Denies suicidal/homicidal ideation. Assessment & Plan (08/16/2020 11:22 AM CDT): Hydroxyzine 25mg q6hr prn, risperidone 2mg nightly, trazodone 100mg nightly, duloxetine DR 60mg daily, amitriptyline 25mg nightly. Managed by Dr Berger at [facility]. Doing phone visits with him q3mos. Also with therapist Kay at [facility]. Reports good control of depression w/current regimen. No changes to be made at this time. Reviewed med Ses & scheduling. Reviewed red flags. Assessment & Plan (02/09/2020 9:30 AM CDT): Following w/Dr Berger at [facility] every 3 months. following w/monthly therapy appts w/Mellisa Davidson at [facility]. Verified current medications. Will fax lab results to Dr Berger at [facility] once completed. Reports good control of depression w/current regimen. No changes to be made at this time. Reviewed med Ses & scheduling. Reviewed red flags. Assessment & Plan (11/07/2019 10:00 AM CDT): Followed by Dr Berger at [facility]. Reports good control of depression w/current regimen. No changes to be made at this time. Reviewed med Ses & scheduling. Reviewed red flags. Resolved Problems Problem Noted Date Diagnosed Date Resolved Date BMI 27.0-27.9,adult 02/09/2020 08/17/19 21 Assessment & Plan (05/17/2020 1:11 PM SUPERVISOR BEATER ROOM): Discussed healthy diet and importance of regular [...] healthier, we can set up appointment with events associate/rn house supervisor. 3. Have an active lifestyle, strive for [...] & Plan (11/07/2019 10:01 AM CDT): 12/22/18 FZ=671 HDL=43 KK=931 LDL=88 TC/HDL=4.74 07/04/19 TC=78 HDL=32 XP=745 YLO=725 TC/HDL=10.3 11/07/19 GV=789 DL=27 PA=228 WHK=760 CALC TC/HDL=12.0 Copy of today's lipid panel given to mrs Perez. Will have tests verified/repeated at lab today. Aware that atorvastatin will need increased if lipid panel elevated. Encounters Date Type Department Care Team Description 10/13/2024 Orders Only [facility] [address] [phone] Radha Rodriges MD 09/19/2024 Telephone [facility] [address] [phone] Vijay Truong MD Medical Records Request 09/15/2024 12:30 PM CDT Office Visit [facility] [address] [phone] Nidia Rojas NP Dyslipidemia associated with type 2 diabetes mellitus (HCC) (Primary Dx); Screening mammogram for breast cancer; Hypertension associated with diabetes (HCC); Anemia of chronic renal failure, stage 4 (severe) (HCC) 09/12/2024 8:55 AM CDT Lab [address] [phone] Dyslipidemia associated with type 2 diabetes mellitus (HCC); Hypertension associated with diabetes (HCC) 09/09/2024 Telephone [facility] [address] [phone] Inna Lugo MA Labs Requested for Appointment 08/28/2024 Results Follow-Up [facility] G[facility]ology at [address] [place] [address] Nathan Brooks, Surgical pathology 08/24/2024 8:03 AM CDT Anesthesia Event [address] [address] Piter Spencer DO 08/24/2024 7:30 AM CDT - 08/24/2024 8:00 AM CDT Surgery [address] [address] Nathan Brooks, COLON BIOPSY 08/24/2024 6:00 AM CDT - 08/24/2024 9:11 AM CDT Hospital Encounter [facility] [address] [place] [address] Nathan Brooks, History of colonic polyps; Encounter for screening colonoscopy Discharge Disposition: Discharge to home or self care 08/17/[address] [place] [phone] Ashu Arevalo MD 08/09/[address] [place] [phone] Ashu Arevalo MD 08/08/2024 2:30 PM CDT Clinical Support [address] [phone] Anemia of chronic renal failure, stage 4 (severe) (HCC) (Primary Dx) 08/08/2024 2:15 PM CDT Lab [address] [place] [phone] Anemia of chronic renal failure, unspecified CKD stage (Primary Dx) 08/03/2024 Orders Only [facility] [address] [phone] Vijay Truong MD 08/03/2024 Telephone [facility] [address] [phone] Vijay Truong MD Medical Question/Miscellan eous from Last 3 Months Immunizations Immunization Administration Dates Next Due COVID-19 mRNA ([employer]) 0.3 m L (30 mcg) vaccine (12 [...] week 06/26/2022 How often do you attend [facility] or muslim services? More than 4 times per year 06/26/2022 Do you belong to any clubs o r organizations such as jain groups, unions, fraternal or athletic groups, or [...] on file Legal Sex Female 12:56 PM SUPERVISOR BEATER ROOM Gender Identity Not on file Sexual Orientation [...] 08/24/2024, 10/18/2018 Medical Devices Implanted Type Area Bleacher Lard Device Identifier Shelf Expiration Date Model / Serial / Lot Bard Peripheral Vascular [id number] Ultraclip Bard 17ga 12cm 2 Trigger Permanent Ultrasound - [id number] - [id number] Implanted:Qty: 1 on 05/09/2020 by Oc Amin MD at [facility] Breast Left: Breast Bard Peripheral Vascular 11/05/2022 [id number] / [id number] / Bard Peripheral Vascular [id number] Ultraclip Bard 17ga 10cm 2 Trigger Permanent Ultrasound - [id number] - [id number] Implanted:Qty: 1 on 05/09/2020 by Oc Amin MD at [facility] Breast Left: Breast Bard Peripheral Vascular 12/05/2022 [id number] / [id number] / Procedures Procedure Name Priority Date/Time Associated [...] HEMOGLOBIN A1C Routine 04/27/2024 1 :05 PM SUPERVISOR BEATER ROOM Type 2 diabetes mellitus with hypoglycemia without coma, with long-term current use of insulin (HCC) ALBUMIN CREATININE RATIO, URINE Routine 02/23/2024 12:10 PM CDT DEXA AXIAL SKELETON BONE DENSITY 1 OR MORE SITES Schedule Routine, Read Routine (OP Routine) 04/03/2023 12:42 PM SUPERVISOR BEATER ROOM At high risk for osteoporosis Age-related osteoporosis without current pathological fracture SCREENING MAMMOGRAM RIGHT W WES[place] UNILATERAL ONLY Schedule Routine, Read Routine (OP Routine) 03/28/2022 2:03 PM SUPERVISOR BEATER ROOM Personal history of breast cancer Encounter for [...] LAB BLOOD ORDERABLES Final Result [facility] ([facility]) 1 [facility] Department [place] [address] * Differential, auto (09/12/2024 9:00 [...] ORDERABLES Final Result [facility] ([facility]) 1 [facility] [place] [address] * (ABNORMAL) CBC with auto differential (09/12/2024 [...] ORDERABLES Final Result [facility] ([facility]) 1 [facility] [place] [address] * Lipid panel (09/12/2024 9:00 AM CDT) [...] ORDERABLES Final Result [facility] ([facility]) 1 [facility] Department [place] [address] * (ABNORMAL) Comprehensive metabolic panel (09/12/2024 9:00 [...] ORDERABLES Final Result [facility] ([facility]) 1 [facility] Department of Laboratories [place], [place] [id number] * Surgical pathology (08/24/2024 2:16 PM CDT) Tissue (Polyp(s), colon/colorectal, esophageal, gastric) 08/24/2024 8:16 AM CDT Tissue specimen (specimen) (Polyp(s), colon/colorectal, esophageal, gastric) 08/24/2024 8:21 AM CDT Narrative PATHOLOGY [facility] ([facility]) - 08/26/2024 8:44 AM CDT EPIC results best viewed via link to PDF [facility] Department of Pathology [address] [place], [place] [address] Note to Patients: This report may contain [...] Final Report Patient Name: DANA PEREZ Address: [address] [place] [address]- Gender: F : 1955 (Age: 68) Service: Gastro Location: [facility] Hospital #: [id number] Patient Type: [facility] Taken: 08/24/2024 Received: 08/24/2024 Accessioned: 08/24/2024 Reported: [...] determined by the Surgical Pathology Department at [facility] as part of an ongoing quality reviewer program and in compliance with federally mandated [...] characteristics determined by the Surgical Pathology Department [facility]. It has not been cleared or approved by the U. S. Food and Drug Administration. Note for decalcified specimens: This assay has not been validated on decalcified tissues. Results should be interpreted with caution given the possibility of false negativity on decalcified specimens us Nathan Brooks DO LAB PATHOLOGY ORDERABLES Final Result PATHOLOGY [facility] ([place]) [address] [place] [address] * POCT glucose (08/24/2024 8:03 AM CDT) Glucose, POC 119 70 - 199 mg/dL Blood 08/24/2024 8:03 AM CDT 08/24/2024 8:03 AM CDT us Nathan Brooks DO LAB POCT ORDERABLES - DEVICE F inal Result [facility] ([place]) 1 [place] [address] * (ABNORMAL) POCT glucose (08/24/2024 7:18 AM CDT) Glucose, POC 60(L) 70 - 199 mg/dL Blood 08/24/2024 7:18 AM CDT 08/24/2024 7:18 AM CDT us Nathan Brooks DO LAB POCT ORDERABLES - DEVICE F inal Result Performing Organization Address [facility] Co de Phone Number [facility] ([place]) [address] [place] [address] * Colonoscopy (08/24/2024 7:16 AM CDT) Anatomical Region Laterality Modality Other Narrative Procedure Note Nathan Brooks, - 08/24/2024 7:16 AM CDT [facility] Patient Name: Dana Perez Procedure Date: 08/24/2024 7:16 AM Date of : 1955 Admit Type: Outpatient Age: 68 Gender: Female Attending MD: Nathan Brooks D.O. Room: [facility] ENDOSCOPY ROOM 3 Note Status: Finalized [...] immediately with the 2nd glass ofwater. Florastor Grabit per labelinstructions. MiraLax 1 capful 1-2 times [...] passed under direct vision. The Pediatric Colonoscope [id number] was introduced through the anus and advanced [...] 7:16 AM Procedure Code(s): --- Professional --- 40915, Colonoscopy, flexible; with biopsy, single or multiple --- Technical --- 27880, Colonoscopy, flexible; with biopsy, single or multiple [...] perforation orabscess without bleeding CPT copyright 2020 [employer]. All rights reserved. The codes documented in this report are preliminary and upon plant and equipment worker reviewmay be revised to meet current compliance requirements. Recognized by the [employer] for promoting quality in endoscopy Nathan Brooks DO ENDOSCOPY PROCEDURES Final Res ult * HM DIABETES EYE EXAM (08/19/2024 8:56 AM CDT) Historical Provider [facility] Edited Result - Final * Differential, auto (08/08/2024 1:55 PM CDT) Neutrophil abs 5.8 1.5 - 6.5 K/cumm Comment:Testing performed by : [facility] [address], Medical Office [facility] [address], [place] [address] Imm gran abs 0.0 0.0 - 0.1 K/cumm [facility] ([facility]) Comment:Testing performed by : [facility] [address], Medical Office [facility] [address], [place] [address] Lymphocyte abs 0.9 0.8 - 3.3 K/cumm [facility] ([place]) Comment:Testing performed by : [facility] [address], Medical Office [facility] [address], [place] [address] Monocyte abs 0.4 0.2 - 0.8 K/cumm [facility] ([place]) Comment:Testing performed by : [facility] [address], Medical Office [facility] [address], [place] [address] Eosinophil abs 0.1 0.0 - 0.5 K/cumm [facility] ([place]) Comment:Testing performed by : [facility] [address], Medical Office [facility] [address], [place] [address] Basophil abs 0.1 0.0 - 0.1 K/cumm [facility] ([facility]) Comment:Testing performed by : [facility] [address], Medical Office [facility] [address], [place] [address] Neutrophil pct 79.7 % [facility] ([facility]) Comment: Interpretive Data Percent cell count reference ranges are not reported, since discordance with absolute values may lead to misinterpretation of CBC data. Current Interpretive Data was last revised on 2022. Testing performed by: [facility] [address], Medical Office [facility] [address], [place] [address] Imm gran pct 0.3 % [facility] (ARCADIA) Comment: Interpretive Data Percent cell count reference ranges are not reported, since discordance with absolute values may lead to misinterpretation of CBC data. Current Interpretive Data was last revised on 2022. Testing performed by: [facility] [address], Medical Office [facility] [address], [place] [address] Lymphocyte pct 12.9 % [facility] (ERASMO) Comment: Interpretive Data Percent cell count reference ranges are not reported, since discordance with absolute values may lead to misinterpretation of CBC data. Current Interpretive Data was last revised on 2022. Testing performed by: [facility] [address], Medical Office [facility] [address], [place] [address] Monocyte pct 5.4 % [facility] (ERASMO) Comment: Interpretive Data Percent cell count reference ranges are not reported, since discordance with absolute values may lead to misinterpretation of CBC data. Current Interpretive Data was last revised on 2022. Testing performed by: [facility] [address], Medical Office [facility] [address], [place] [address] Eosinophil pct 1.0 % [facility] (ERASMO) Comment: Interpretive Data Percent cell count reference ranges are not reported, since discordance with absolute values may lead to misinterpretation of CBC data. Current Interpretive Data was last revised on 2022. Testing performed by: [facility] [address], Medical Office [facility] [address], [place] [address] Basophil pct 0.7 % [facility] (ERASMO) Comment: Interpretive Data Percent cell count reference ranges are not reported, since discordance with absolute values may lead to misinterpretation of CBC data. Current Interpretive Data was last revised on 2022. Testing performed by: [facility] [address], Medical Office [facility] [address], [place] [address] Blood 08/08/2024 1:55 PM CDT 08/08/2024 2:00 PM CDT us Ashu Arevalo MD LAB BLOOD ORDERABLES Fin al Result OSMIN ESTRADA (ERASMO) 1 [facility] Department [place] [address] * (ABNORMAL) CBC with auto differential (08/08/2024 1:55 PM CDT) WBC 7.3 3.8 - 9.9 K/cumm Comment:Testing performed by : [facility] [address], Medical Office [facility] [address], [place] [address] Hgb 9.1(L) 11.9 - 15.5 g/dL [facility] (ERASMO) Comment:Testing performed by : [facility] [address], Medical Office [facility] [address], [place] [address] Hct 28.7(L) 35.6 - 45.5 % [facility] (ERASMO) Comment:Testing performed by : [facility] [address], Medical Office [facility] [address], [place] [address] Plt 315 150 - 400 K/cumm [facility] (ERASMO) Comment:Testing performed by : [facility] [address], Medical Office [facility] [address], [place] [address] MPV 9.2 9.1 - 12.3 fL [facility] (ERASMO) Comment:Testing performed by : [facility] [address], Medical Office [facility] [address], [place] [address] RBC 3.38(L) 3.90 - 5.20 M/cumm [facility] (ERASMO) Comment:Testing performed by : [facility] [address], Medical Office [facility] [address], [place] [address] MCV 84.9 81.3 - 96.4 fL [facility] (ERASMO) Comment:Testing performed by : [facility] [address], Medical Office [facility] [address], [place] [address] MCH 26.9(L) 27.1 - 33.3 pg [facility] (ERASMO) Comment:Testing performed by : [facility] [address], Medical Office [facility] [address], [place] [address] MCHC 31.7(L) 32.3 - 35.7 g/dL [facility] (ERASMO) Comment:Testing performed by : [facility] [address], Medical Office [address], [place] [address] RDW CV 18.3(H) 11.1 - 14.9 % [facility] (ERASMO) Comment:Testing performed by : [facility] [place] [address], Medical Office [address], [place] [address] RDW SD 58.1(H) 35.7 - 48.1 fL OSMIN ESTRADA (ERASMO) Comment:Testing performed by : [facility] [place] [address], Medical Office [facility] [address], [place] [address] NRBC abs Not Measured 0.00 - 0.01 K/cumm OSMIN ESTRADA (ERASMO) Comment:Testing performed by : [facility] [place] [address], Medical Office [facility] [address], [place] [address] Blood 08/08/2024 1:55 PM CDT 08/08/2024 2:00 PM CDT Ashu Arevalo MD LAB BLOOD ORDERABLES Fin al Result OSMIN ESTRADA (ERASMO) 1 [facility] Department [place] [address] * POCT hemoglobin A1c (04/27/2024 1:05 PM [facility]) Hemoglobin A1C, POC 5.9 4.0 - 5.6 % Blood 04/27/2024 1:05 PM [facility] us Inna Tsang NP POINT OF CARE TEST ORDERABLES F inal Result * (ABNORMAL) Albumin Creatinine Ratio, Urine (02/23/2024 12:10 PM CDT) Albumin Ur 1,424.9 mg/L Comment: Interpretive Data No reference range established. Current interpretive data was last revised 2018. Testing performed by: [address] [place] [address] Creatinine Ur 128.1 mg/dL OSMIN ESTRADA (ERASMO) Comment: Interpretive Data No reference range established. Current interpretive data was last revised 2018. Testing performed by: [address], [place]., [address] Albumin Creatinine Ratio, Ur 1,112(H) 1 - 29 mg/g OSMIN ESTRADA (ERASMO) Comment:Testing performed by : [facility], [address] [place] [address]., [address] Urine 02/23/2024 12:1 0 PM CDT 02/23/2024 9:33 PM CDT us Ashu Arevalo MD LAB URINE ORDERABLES Fin al Result OSMIN ESTRADA (ERASMO) 1 [facility] Department [place] [address] * Dexa Axial Skeleton Bone Density 1 or 2 Site (04/03/2023 12:42 PM [facility]) Anatomical Region Laterality Modality Body N/A Other 04/03/2023 1:05 PM [facility] Narrative 04/03/2023 1:05 PM [facility] EXAM DESCRIPTION: DEXA AXIAL SKELETON BONE DENSITY 1 OR MORE SITES REASON FOR STUDY: 67 y/o year old F with given history of: history of AI therapy Osteoporosis screening 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 MF: TOBIN Report ID: [id number] Reading Location: [place] [address] Shaniqua Ellison NP [facility] DXA PROCEDURES Fi nal Result * Screening Mammogram Right W Wesley Unilateral Only (03/28/2022 2:03 PM [facility]) Anatomical Region Laterality Modality Breast Right Mammography Narrative 03/28/2022 3:58 PM [facility] Mammogram Technique: Right Breast Digital Breast Tomosynthesis, Unilateral C-view 2D Screening mammogram. Views obtained: bilateral craniocaudal and bilateral mediolateral oblique. Computer Aided Detection was performed. Mammogram Findings: The present examination has been compared to prior imaging studies performed on 02/16/2020, at [facility]. [facility] on 04/17/2020 and 05/09/2020, and at [facility] on 03/22/2021. The breast is heterogeneously [...] prior imaging studies performed on 02/16/2020, at [facility]. [facility] on 04/17/2020 and 05/09/2020, and at [facility] on 03/22/2021. The breast is heterogeneously [...] Most Recently Relevant to Health Maintenance Insurance [facility] MEDICARE ADVANTAGE [id number] MEDIC[facility] ADVANTAGE [id number] MEDIC[facility] ADVANTAGE IDPA Advance Directives For more information, please contact: [phone] * Full Code (Latest Code Status on [...] 8:34 AM 10/18/2018 8:35 AM Care Teams Field Insurance Sales Manager Relationship Specialty Start Date End Date Vijay Truong MD [address] [place] [address] PCP - General 08/08/16 Rubén Miranda MD PhD [address] [place] [address] Radiation Oncologist Radiation Oncology 07/27/20 Lila James MD [address] [place] [address] Referring Physician Surgical Oncology 07/27/20 [place] [address] [place] [address] Referring Physician Psychiatry & Neurology 02/05/22 Ash Fraga MD [address] [place] [address] Medical Oncologist/Liner Installer Hematology and Oncology 06/11/22
--- OUTSIDE RECORDS SUMMARY | 2024-10-14 14:30 | XMS_ITS | Referral Summary ---
Author Organization [facility] Address [address] [place] [id number] Care Team Providers Care Report Checker Name Role Phone Vijay Truong MD Primary Care Provider [phone] Rubén Miranda MD PhD Unavailable [phone] Lila James MD Unavailable [phone] Emile Berger MD Unavailable [phone] Ash Fraga MD Unavailable [phone] Encounters Date Type Department Care Team Description 10/13/2024 Orders Only [facility] [address] [address] Radha Rodriges MD 09/19/2024 Telephone [facility] [address] [address] Vijay Truong MD Medical Records Request 09/15/2024 12:30 PM CDT Office Visit [facility] [address] [phone] Nidia Rojas NP Dyslipidemia associated with type 2 diabetes mellitus (HCC) (Primary Dx); Screening mammogram for breast cancer; Hypertension associated with diabetes (HCC); Anemia of chronic renal failure, stage 4 (severe) (HCC) 09/12/2024 8:55 AM CDT [address] [address] Dyslipidemia associated with type 2 diabetes mellitus (HCC); Hypertension associated with diabetes (HCC) 09/09/2024 Telephone [facility] [address] [phone] Inna Lugo MA Labs Requested for Appointment 08/28/2024 Results Follow-Up [facility] Gastroenterology at [address] [place] [address] Nathan Brooks, Surgical pathology 08/24/2024 8:03 AM CDT Anesthesia Event [address] [address] Piter Spencer, 08/24/2024 7:30 AM CDT - 08/24/2024 8:00 AM CDT Surgery [address] [address] Nathan Brooks, COLON BIOPSY 08/24/2024 6:00 AM CDT - 08/24/2024 9:11 AM CDT Hospital Encounter [address] [address] Nathan Brooks, History of colonic polyps; Encounter for screening colonoscopy Discharge Disposition: Discharge to home or self care 08/17/[address] [place] [phone] Ashu Arevalo MD 08/09/[address] [address] Ashu Arevalo MD 08/08/2024 2:30 PM CDT Clinical Support [address] [place] [phone] Anemia of chronic renal failure, stage 4 (severe) (HCC) (Primary Dx) 08/08/2024 2:15 PM CDT Lab [address] [phone] Anemia of chronic renal failure, unspecified CKD stage (Primary Dx) 08/03/2024 Orders Only [facility] [place] [address] [place] [address] Vijay Truong MD 08/03/2024 Telephone [facility] [place] [address] [place] [address] Vijay Truong MD Medical Question/Miscellan eous from Last 3 Months Allergies No known active allergies Medications blood-glucose meter kit Use to test blood sugar once daily. 1 each 04/07/20 18 Active hydrOXYzine (VISTARIL) 50 mg capsuleIndications:T ype 2 diabetes mellitus with hyperglycemia, with long-term current use of insulin ([facility]) 0 23 Active lancets miscIndications:Type 2 diabetes mellitus with peripheral neuropathy ([facility]) 1 each by other route [...] use of insulin, macular edema presence unspecified ([facility]) Use to inject once nightly. [...] coma, with long-term current use of insulin ([facility]) Inject 18 Units under the skin nightly [...] 03/17/2024 Assessment & Plan (03/17/2024 7:38 AM GETTER FILLER): Stable. Following with pulmonology and will continue to do so. Hypertension associated with diabetes 03/17/2024 Assessment & Plan (09/15/2024 1:29 PM CDT): Well controlled on lisinopril. Will continue to monitor. Assessment & Plan (04/27/2024 1:21 PM GETTER FILLER): This is a chronic condition which is not at goal on arrival. At goal after rest. Goal is less than 140/90 Continue lisinopril, Lasix Encouraged to monitor weight and B/P at home. Assessment & Plan (03/17/2024 7:39 AM GETTER FILLER): Normotensive. Continue lisinopril. Will continue to monitor. Colon cancer screening 03/17/2024 Assessment & Plan (03/17/2024 7:39 AM GETTER FILLER): Referral to GI for screening colonoscopy placed History of colonic polyps 03/17/2024 Encounter for screening colonoscopy 03/17/2024 Anemia of chronic renal failure, stage 4 (severe ) 03/07/2024 Assessment & Plan (09/15/2024 1:29 PM CDT): Renal function stable. Anemia improving. Continues following closely with Nephrology. Assessment & Plan (03/17/2024 7:36 AM GETTER FILLER): Stable. Following with Nephrology and will continue [...] Lasix Assessment & Plan (04/06/2023 3:42 PM GETTER FILLER): This is a chronic condition which is [...] atorvastatin. Assessment & Plan (06/19/2022 2:08 PM GETTER FILLER): This is a chronic condition which is [...] goal <30 treated with lisinopril Personally reviewed [facility] GFR- 16. Follows with Dr. Baker for [...] 01/17/2022 Assessment & Plan (03/17/2024 7:36 AM GETTER FILLER): Visit preventive in nature. We reviewed medications, [...] 21 Assessment & Plan (04/09/2021 5:57 PM GETTER FILLER): Vaccine given in office today. Reviewed possible [...] cooking Assessment & Plan (05/16/2022 5:25 PM GETTER FILLER): Weights stable. Working on diet and exercise, previously riding stationary bike. Assessment & Plan (01/17/2022 10:16 AM CDT): Discussed healthy diet and importance of regular physical activity. Assessment & Plan (10/13/2021 1:35 PM CDT): Congratulated patient on her efforts to improve diet. Discussed healthy diet and importance of regular physical activity. Assessment & Plan (07/11/2021 11:00 AM GETTER FILLER): Discussed healthy diet and importance of regular physical activity. Assessment & Plan (04/09/2021 5:57 PM GETTER FILLER): Discussed healthy diet and importance of regular [...] bedtime. Assessment & Plan (05/17/2020 1:10 PM GETTER FILLER): Omeprazole refilled. Reviewed provocative foods to avoid: caffeine, citrus, ETOH, carbonated drinks, fried/fatty/fast foods & rich/creamy sauces. Reviewed diet/exercise recommendations: 20-30min physicaly activity daily at minimum. Reviewed med Ses & scheduling. Weight loss will help improve GERD sxs. Keep HOB elevated 30 degrees & not eat 2-3 hrs before bedtime. Regional lymph node metastasis present Assessment & Plan (05/17/2020 1:09 PM GETTER FILLER): L axillary lymph node. Anxious re: new L breast ca dx. Anxious re: pending treatments. Discussed at length during appt. Copies of recent screening/diagnostic mamm & ultrasound of L breast given to mrs Perez. Discussed lymph node involvement. Referral placed to Dr James at [facility]. Aware that her office [...] from 05/09/2020:Stage IIA(cT2, cN1(f), cM0, G1, ER+, OH+, HER2-) - Signed by Rubén Miranda MD PhD on 07/27/2020 Pathologic stage from 07/02/2020:Stage IA(pT2, pN1a(sn), cM0, G1, ER+, OH+, HER2- ) - Signed by Rubén Miranda MD PhD on 07/27/2020 Assessment & Plan (01/17/2022 10:19 AM CDT): Assessment & Plan (04/09/2021 6:01 PM GETTER FILLER): Follows with oncology, continues letrozone. To have [...] necessary. Assessment & Plan (05/17/2020 1:08 PM GETTER FILLER): Anxious re: new L breast ca dx. Anxious re: pending treatments. Discussed at length during appt. Copies of recent screening/diagnostic mamm & ultrasound of L breast given to mrs Perez. Discussed lymph node involvement. Referral placed to Dr James at [facility]. Aware that her office [...] continue. Assessment & Plan (04/27/2024 1:21 PM GETTER FILLER): This is a chronic condition which is at goal . Goal is LDL less than 70 Continue atorvastatin Encouraged to eat healthy, include fresh fruits and vegetables daily and avoid eating fried foods more than once per week. Assessment & Plan (03/17/2024 7:36 AM GETTER FILLER): Stable. Continue atorvastatin. Tolerating without side effects. Will continue to monitor. Assessment & Plan (01/13/2024 12:49 PM CDT): This is a chronic condition which is at goal . Goal is LDL less than 70 Continue atorvastatin Encouraged to eat healthy, include fresh fruits and vegetables daily and avoid eating fried foods more than once per week. Assessment & Plan (04/06/2023 3:43 PM GETTER FILLER): This is a chronic condition which is [...] prescribed. Assessment & Plan (06/19/2022 2:10 PM GETTER FILLER): This is a chronic condition which is not at goal of LDL less than 70 Continue atorvastatin Encouraged to eat healthy, include fresh fruits and vegetables daily and avoid eating fried foods more than once per week. Encouraged to take medications as prescribed. Assessment & Plan (05/16/2022 5:17 PM GETTER FILLER): Continue current regimen. Assessment & Plan (01/17/2022 10:16 AM CDT): 01/10/22 TC 186 TRG 421 HDL 29 LDL 90 Continue current regimen, recommended fish oil supplementation and following low fat diet. Will repeat labs prior to next office visit. Assessment & Plan (10/13/2021 1:35 PM CDT): Continue atorvastatin daily. Assessment & Plan (07/11/2021 11:16 PM GETTER FILLER): Reviewed previous lipid panel. Doing well on atorvastatin 40 mg daily, denies any medication side effects. Assessment & Plan (04/09/2021 6:00 PM GETTER FILLER): Results for orders placed or performed in [...] & Plan (08/16/2020 11:24 AM CDT): 12/22/18 GY=931 HDL=43 UK=852 LDL=88 TC/HDL=4.74 07/04/19 TC=78 HDL=32 PX=824 IRM=276 TC/HDL=10.3 11/07/19 VJ=536 DL=27 IQ=235 BDO=234 CALC TC/HDL=12.0 to lab 02/09/20 LN=636 HDL=38 SP=188 LDL=92 TC/HLD=5.0 The 10-year ASCVD risk score [...] flags. Assessment & Plan (05/17/2020 1:10 PM GETTER FILLER): We will check labs and make adjustments [...] 10/25/21. Assessment & Plan (05/16/2022 5:23 PM GETTER FILLER): Following with nephrology. Discussed importance of well controlled blood pressure and diabetes management. Assessment & Plan (01/17/2022 9:44 AM CDT): 09/18/20 GFR=17 11/08/20 GFR=26 02/14/21 GFR=22 10/01/21 GFR=27 01/10/22 GFR=20 Following with nephrology. Assessment & Plan (10/13/2021 1:41 PM CDT): 09/18/20 GFR=17 11/08/20 GFR=26 02/14/21 GFR=22 10/01/21 GFR=27 Scheduled with nephrology 10/25/21. Assessment & Plan (04/09/2021 5:59 PM GETTER FILLER): 09/18/20 GFR=17 11/08/20 GFR=26 02/14/21 GFR=22 Updated [...] function. Assessment & Plan (05/17/2020 1:11 PM GETTER FILLER): GFR 11/07/19=35 GFR 02/09/20=35. Has been stable. [...] 11/06/2019 Assessment & Plan (05/16/2022 5:23 PM GETTER FILLER): Lab Results Component Value Date HGBA1C 9.9 [...] 04/09/2021 Assessment & Plan (07/11/2021 11:17 PM GETTER FILLER): Lab Results Component Value Date HGBA1C 10.5 07/11/2021 HGBA1C 9.7 04/09/2021 HGBA1C 11.7 01/07/2021 Patient agreeable to meet with family life educator to discuss healthy food choices to improve blood glucose. Referral placed. Will start basal insulin 10 units nightly, reviewed medication administration, follow up in 3 months and bring copy of blood sugar log to next apt. Reviewed s/s of hypo/hypergylcemia. Assessment & Plan (04/09/2021 6:08 PM GETTER FILLER): Lab Results Component Value Date HGBA1C 9.7 [...] month Assessment & Plan (05/17/2020 1:09 PM GETTER FILLER): Lab Results Component Value Date HGBA1C 9.6 [...] evaluation. Last eye exam december 2018 at [facility]. Letter sent to get copy of [...] 04/09/2021 Assessment & Plan (04/27/2024 1:21 PM GETTER FILLER): This is a chronic condition which is [...] lisinopril. Assessment & Plan (03/17/2024 7:35 AM GETTER FILLER): Improving. Continue following with endocrinology. Red flags reviewed. Hypertensive disorder 07/04/2019 Overview (05/19/2023): Last Assessment & Plan: Stable; continue current medication regimen. Assessment & Plan (04/06/2023 3:43 PM GETTER FILLER): This is a chronic condition which is [...] prescribed. Assessment & Plan (06/19/2022 2:09 PM GETTER FILLER): This is a chronic condition which is at goal of less than 140/90 Hypotension 94/48 Personally reviewed labs. Decrease lisinopril to 10 mg p.o. daily Encouraged to take medications as prescribed. Assessment & Plan (05/16/2022 5:23 PM GETTER FILLER): Blood pressure well controled today. No changes in current regimen. Assessment & Plan (01/17/2022 10:14 AM CDT): Condition is stable Discussed/ordered labs, encouraged healthy, low carbohydrate lifestyle and at least 150min/week of exercise, continue on lisinopril 20 mg daily. BP checked by myself 118/80 Assessment & Plan (10/13/2021 1:41 PM CDT): Stable; continue current medication regimen. Assessment & Plan (07/11/2021 11:17 PM GETTER FILLER): BP well controlled today. No changes in current medication regimen. Assessment & Plan (04/09/2021 6:10 PM GETTER FILLER): Patient encouraged to take BP medication as [...] received. Assessment & Plan (05/17/2020 1:09 PM GETTER FILLER): Does not check BP at home. The [...] (09/29/2018): Added automatically from request for surgery [id number] Fibromyalgia 01/01/2017 Assessment & Plan (03/17/2024 7:36 AM GETTER FILLER): Stable on duloxetine. No changes. Will continue to monitor. Primary osteoarthritis involving multiple joints 01/01/2017 Major depressive disorder 01/01/2017 Assessment & Plan (07/11/2021 11:04 AM GETTER FILLER): Managed by Dr. Berger at [facility], following up every 3 months. Continues seeing therapist once monthly. Discussed increasing frequency of counseling to once weekly if able. PHQ today 21. Discussed importance of regular exercise/ healthy diet and general healthy lifestyle to improve moods. Lives at home with son and two grandsons. Reports supportive family. Denies any SI/HI. Assessment & Plan (04/09/2021 10:47 AM GETTER FILLER): PHQ=19 (worsening with breast CA diagnosis) Hydroxyzine 25mg q6hr prn, risperidone 2mg nightly, trazodone 100mg nightly, duloxetine DR 60mg daily, amitriptyline 25mg nightly. Managed by Dr Berger at [facility]. Sees him q3mos. Also sees therapist Kay at [facility]. Denies suicidal/homicidal ideation. Assessment & Plan (08/16/2020 11:22 AM CDT): Hydroxyzine 25mg q6hr prn, risperidone 2mg nightly, trazodone 100mg nightly, duloxetine DR 60mg daily, amitriptyline 25mg nightly. Managed by Dr Berger at [facility]. Doing phone visits with him q3mos. Also with therapist Kay at [facility]. Reports good control of depression w/current regimen. No changes to be made at this time. Reviewed med Ses & scheduling. Reviewed red flags. Assessment & Plan (02/09/2020 9:30 AM CDT): Following w/Dr Berger at [facility] every 3 months. following w/monthly therapy appts w/Mellisa Davidson at [facility]. Verified current medications. Will fax lab results to Dr Berger at [facility] once completed. Reports good control of depression w/current regimen. No changes to be made at this time. Reviewed med Ses & scheduling. Reviewed red flags. Assessment & Plan (11/07/2019 10:00 AM CDT): Followed by Dr Berger at [facility]. Reports good control of depression w/current regimen. No changes to be made at this time. Reviewed med Ses & scheduling. Reviewed red flags. Resolved Problems Problem Noted Date Diagnosed Date Resolved Date BMI 27.0-27.9,adult 02/09/2020 08/17/19 21 Assessment & Plan (05/17/2020 1:11 PM GETTER FILLER): Discussed healthy diet and importance of regular [...] we can set up appointment with manager medical writing/maintenance service technician. 3. Have an active lifestyle, strive [...] & Plan (11/07/2019 10:01 AM CDT): 12/22/18 ID=[id number] HDL=43 NC=580 LDL=88 TC/HDL=4.74 07/04/19 TC=78 HDL=32 EM=075 HZX=901 TC/HDL=10.3 11/07/19 KS=291 DL=27 VP=977 NJP=321 CALC TC/HDL=12.0 Copy of today's lipid panel given to mrs Perez. Will have tests verified/repeated at lab today. Aware that atorvastatin will need increased if lipid panel elevated. Immunizations Immunization Administration Dates Next Due COVID-19 mRNA ([employer]) 0.3 m L (30 mcg) vaccine (12 [...] Trivalent, IM (MDV) 02/12/2014 Influenza, Unspecified 02/01/2023,2018,02/17/2019,02/08,02/08/2017 [employer] ([employer]) SARS-CoV-2 Vaccination 09/19/2020, 09/17/2020,09/17/2020 Pneumococcal Conjugate [...] How often do you attend chur or caodaism services? More than 4 times per year 06/26/2022 Do you belong to any clubs o r organizations such as pentecostal groups, unions, fraternal or athletic groups, or [...] place to sleep or slept in a fdc (including now)? No 06/26/2022 Personal Safety Answer [...] on file Legal Sex Female 12:56 PM GETTER FILLER Gender Identity Not on file Sexual Orientation [...] on file Medical Devices Implanted Type Area Community Service Worker Device Identifier Shelf Expiration Date Model / Serial / Lot Bard Peripheral Vascular [id number] Ultraclip Bard 17ga 12cm 2 Trigger Permanent Ultrasound - [id number] - [id number] Implanted:Qty: 1 on 05/09/2020 by Oc Amin MD at [facility] Breast Left: Breast [employer] 11/05/2022 [id number] / [id number] / Bard Peripheral Vascular [id number] Ultraclip Bard 17ga 10cm 2 Trigger Permanent Ultrasound - [id number] - [id number] Implanted:Qty: 1 on 05/09/2020 by Oc Amin MD at [facility] Breast Left: Breast [employer] Per[employer] 12/05/2022 [id number] / [id number] / Procedures Procedure Name Priority Date/Time Associated [...] HEMOGLOBIN A1C Routine 04/27/2024 1 :05 PM GETTER FILLER Type 2 diabetes mellitus with hypoglycemia without coma, with long-term current use of insulin (HCC) ALBUMIN CREATININE RATIO, URINE Routine 02/23/2024 12:10 PM CDT DEXA AXIAL SKELETON BONE DENSITY 1 OR MORE SITES Schedule Routine, Read Routine (OP Routine) 04/03/2023 12:42 PM GETTER FILLER At high risk for osteoporosis Age-related osteoporosis without current pathological fracture SCREENING MAMMOGRAM RIGHT W WESLEY UNILATERAL ONLY Schedule Routine, Read Routine (OP Routine) 03/28/2022 2:03 PM GETTER FILLER Personal history of breast cancer Encounter for [...] LAB BLOOD ORDERABLES Final Result [facility]) 1 [facility] Department [place] [address] * Differential, auto (09/12/2024 9:00 [...] 9:45 AM CDT us Nidia W. Rojas SCHOOL PSYCHOMETRIST LAB BLOOD ORDERABLES Final Result [facility] ([facility]) [address] [facility] [place] [address] * (ABNORMAL) CBC with auto differential (09/12/2024 [...] 28.4 27.1 - 33.3 pg [facility] ([facility]) MCHC 32.9 32.3 - 35.7 g/dL [facility] ([facility]) RDW CV 17.8(H) 11.1 - 14.9 % [facility] ([facility]) RDW SD 56.5(H) 35.7 - 48.1 fL [facility] ([facility]) NRBC abs 0.00 0.00 - 0.01 K/cumm [facility] ([facility]) Blood 09/12/2024 9:00 AM CDT 09/12/2024 9:45 AM CDT Nidia Rojas NP LAB BLOOD ORDERABLES Final Result [facility] ([facility]) [address] [facility] [place] [address] * Lipid panel (09/12/2024 9:00 AM CDT) [...] ORDERABLES Final Result [facility] ([facility]) 1 [facility] Department [place] [address] * (ABNORMAL) Comprehensive metabolic panel (09/12/2024 9:00 [...] ORDERABLES Final Result [facility] ([facility]) 1 [facility] Department of Laboratories [place], [place] [id number] * Surgical pathology (08/24/2024 2:16 PM CDT) Tissue (Polyp(s), colon/colorectal, esophageal, gastric) 08/24/2024 8:16 AM CDT Tissue specimen (specimen) (Polyp(s), colon/colorectal, esophageal, gastric) 08/24/2024 8:21 AM CDT Narrative [facility] ([facility] - 08/26/2024 8:44 AM CDT EPIC results best viewed via link to PDF [facility] Department of Pathology [address] [place] [id number] Note to Patients: This report may contain [...] Final Report Patient Name: DANA PEREZ Address: [address] [place] [address]- Gender: F : 1955 (Age: 68) Service: Gastro Location: [facility] Hospital #: [id number] Patient Type: [facility] Taken: 08/24/2024 Received: 08/24/2024 Accessioned: 08/24/2024 [...] determined by the Surgical Pathology Department at [facility] as part of an ongoing quality assurance advisor program and in compliance with federally mandated [...] determined by the Surgical Pathology Department [facility]. It has not been cleared or approved by the U. S. Food and Drug Administration. Note for decalcified specimens: This assay has not been validated on decalcified tissues. Results should be interpreted with caution given the possibility of false negativity on decalcified specimens us Nathan Brooks DO LAB PATHOLOGY ORDERABLES Final Result [facility] ([facility] 1 [place], [place] [id number] * POCT glucose (08/24/2024 8:03 AM CDT) Glucose, POC 119 70 - 199 mg/dL Blood 08/24/2024 8:03 AM CDT 08/24/2024 8:03 AM CDT us Nathan Brooks DO LAB POCT ORDERABLES - DEVICE F inal Result Performing Organization Address City/[facility]/ZIP Co de Phone Number [facility] ([place]) [address] [place] [address] * (ABNORMAL) POCT glucose (08/24/2024 7:18 AM CDT) [facility] Signature Glucose, POC 60(L) 70 - 199 mg/dL Blood 08/24/2024 7:18 AM CDT 08/24/2024 7:18 AM CDT us Nathan Brooks DO LAB POCT ORDERABLES - DEVICE F inal Result Performing Organization Address [facility] de Phone Number [facility] ([place]) [address] [place] [address] * Colonoscopy (08/24/2024 7:16 AM CDT) Anatomical Region Laterality Modality Other Narrative Procedure Note Nathan Brooks, DO - 08/24/2024 7:16 AM CDT [facility] Patient Name: Dana Perez Procedure Date: [...] immediately with the 2nd glass ofwater. Florastor Casa Couture per labelinstructions. MiraLax 1 capful 1-2 times [...] passed under direct vision. The Pediatric Colonoscope [id number] was introduced through the anus and advanced [...] 7:16 AM Procedure Code(s): --- Professional --- 86660, Colonoscopy, flexible; with biopsy, single or multiple --- Technical --- 36006, Colonoscopy, flexible; with biopsy, single or multiple [...] perforation orabscess without bleeding CPT copyright 2020 [employer]. All rights reserved. The codes documented in this report are preliminary and upon mixing operator reviewmay be revised to meet current compliance requirements. Recognized by the [employer] for promoting quality in endoscopy us Nathan Brooks DO ENDOSCOPY PROCEDURES Final Res ult * HM DIABETES EYE EXAM (08/19/2024 8:56 AM CDT) us Historical Provider [facility] Edited Result - Final * Differential, auto (08/08/2024 1:55 PM CDT) Neutrophil abs 5.8 1.5 - 6.5 K/cumm Comment:Testing performed by : [facility] [address], Medical Office [facility] [address], [place] [address] Imm gran abs 0.0 0.0 - 0.1 K/cumm [facility] ([facility]) Comment:Testing performed by : [facility] [address], Medical Office [facility] [address], [place] [address] Lymphocyte abs 0.9 0.8 - 3.3 K/cumm [facility] ([facility]) Comment:Testing performed by : [facility] [address], Medical Office [facility] B [facility] [address], [place] [address] Monocyte abs 0.4 0.2 - 0.8 K/cumm [facility] ([facility]) Comment:Testing performed by : [facility] [address], Medical Office [facility] B [facility] [address], [place] [address] Eosinophil abs 0.1 0.0 - 0.5 K/cumm [facility] ([facility]) Comment:Testing performed by : [facility] [address], Medical Office [facility] [address], [place] [address] Basophil abs 0.1 0.0 - 0.1 K/cumm [facility] ([facility]) Comment:Testing performed by : [facility] [address], Medical Office [facility] [address], [place] [address] Neutrophil pct 79.7 % [facility] ([facility]) Comment: Interpretive Data Percent cell count reference ranges are not reported, since discordance with absolute values may lead to misinterpretation of CBC data. Current Interpretive Data was last revised on 2022. Testing performed by: [facility] [address], Medical Office [facility] [address], [place] [address] Imm gran pct 0.3 % [facility] (ERASMO) Comment: Interpretive Data Percent cell count reference ranges are not reported, since discordance with absolute values may lead to misinterpretation of CBC data. Current Interpretive Data was last revised on 2022. Testing performed by: [facility] [address], Medical Office [facility] B [facility] [address], [place] [address] Lymphocyte pct 12.9 % [facility] (ERASMO) Comment: Interpretive Data Percent cell count reference ranges are not reported, since discordance with absolute values may lead to misinterpretation of CBC data. Current Interpretive Data was last revised on 2022. Testing performed by: [facility] [address], Medical Office [facility] [address], [place] [address] Monocyte pct 5.4 % [facility] (ERASMO) Comment: Interpretive Data Percent cell count reference ranges are not reported, since discordance with absolute values may lead to misinterpretation of CBC data. Current Interpretive Data was last revised on 2022. Testing performed by: [facility] [address], Medical Office [facility] B [facility] [address], [place] [address] Eosinophil pct 1.0 % [facility] (ERASMO) Comment: Interpretive Data Percent cell count reference ranges are not reported, since discordance with absolute values may lead to misinterpretation of CBC data. Current Interpretive Data was last revised on 2022. Testing performed by: [facility] [address], Medical Office [facility] [address] [facility] [address], [place] [address] Basophil pct 0.7 % [facility] (ERASMO) Comment: Interpretive Data Percent cell count reference ranges are not reported, since discordance with absolute values may lead to misinterpretation of CBC data. Current Interpretive Data was last revised on 2022. Testing performed by: [facility] [address], Medical Office [facility] B [facility] [address], [place] [address] Blood 08/08/2024 1:55 PM CDT 08/08/2024 2:00 PM CDT us Ashu Arevalo MD LAB BLOOD ORDERABLES Fin al Result OSMIN ESTRADA (ERASMO) 1 [facility] Department [place] [address] * (ABNORMAL) CBC with auto differential (08/08/2024 1:55 PM CDT) [facility] WBC 7.3 3.8 - 9.9 K/cumm Comment:Testing performed by : [facility] [address], Medical Office [address], [place] [address] Hgb 9.1(L) 11.9 - 15.5 g/dL [facility] (ERASMO) Comment:Testing performed by : [facility] [address], Medical Office [facility] [address], [place] [address] Hct 28.7(L) 35.6 - 45.5 % [facility] (ERASMO) Comment:Testing performed by : [facility] [address], Medical Office [facility] [address], [place] [address] Plt 315 150 - 400 K/cumm [facility] (ERASMO) Comment:Testing performed by : [facility] [address], Medical Office [facility] [address], [place] [address] MPV 9.2 9.1 - 12.3 fL [facility] (ERASMO) Comment:Testing performed by : [facility] [address], Medical Office [facility] [address], [place] [address] RBC 3.38(L) 3.90 - 5.20 M/cumm [facility] (ERASMO) Comment:Testing performed by : [facility] [address], Medical Office [address], [place] [address] MCV 84.9 81.3 - 96.4 fL [facility] (ERASMO) Comment:Testing performed by : [facility] [address], Medical Office [facility] [address], [place] [address] MCH 26.9(L) 27.1 - 33.3 pg [facility] (ERASMO) Comment:Testing performed by : [facility] [address], Medical Office [address], [place] [address] MCHC 31.7(L) 32.3 - 35.7 g/dL [facility] (ERASMO) Comment:Testing performed by : [facility] [address], Medical Office [address]ld[address], [place] [address] RDW CV 18.3(H) 11.1 - 14.9 % OSMIN ESTRADA (ERASMO) Comment:Testing performed by : [facility] [address], Medical Office [address], [place] [address] RDW SD 58.1(H) 35.7 - 48.1 fL OSMIN ESTRADA (ERASMO) Comment:Testing performed by : [facility] [address], Medical Office [facility] [address], [place] [address] NRBC abs Not Measured 0.00 - 0.01 K/cumm OSMIN ESTRADA (ERASMO) Comment:Testing performed by : [facility] [address], Medical Office [facility] [address], [place] [address] Blood 08/08/2024 1:55 PM CDT 08/08/2024 2:00 PM CDT us Ashu Arevalo MD LAB BLOOD ORDERABLES Fin al Result OSMIN ESTRADA (ERASMO) 1 [facility] Department [place] [address] * POCT hemoglobin A1c (04/27/2024 1:05 PM GETTER FILLER) Pathologist [facility] Hemoglobin A1C, POC 5.9 4.0 - 5.6 % Blood 04/27/2024 1:05 PM GETTER FILLER us Inna Tsang NP POINT OF CARE TEST ORDERABLES F inal Result * (ABNORMAL) Albumin Creatinine Ratio, Urine (02/23/2024 12:10 PM CDT) Albumin Ur 1,424.9 mg/L Comment: Interpretive Data No reference range established. Current interpretive data was last revised 2018. Testing performed by: [facility], [address] [place] [address], [place] [address] Creatinine Ur 128.1 mg/dL OSMIN ESTRADA (ERASMO) Comment: Interpretive Data No reference range established. Current interpretive data was last revised 2018. Testing performed by: [facility], [address] [place] [address], [place] [address] Albumin Creatinine Ratio, Ur 1,112(H) 1 - 29 mg/g OSMIN ESTRADA (ERASMO) Comment:Testing performed by : [facility], [address] [place] [address], [place] [address] Urine 02/23/2024 12:1 0 PM CDT 02/23/2024 9:33 PM CDT us Ashu Arevalo MD LAB URINE ORDERABLES Fin al Result OSMIN ESTRADA (ERASMO) 1 [facility] Department [place] [address] * Dexa Axial Skeleton Bone Density 1 or 2 Site (04/03/2023 12:42 PM GETTER FILLER) Anatomical Region Laterality Modality Body N/A Other 04/03/2023 1:05 PM GETTER FILLER Narrative 04/03/2023 1:05 PM GETTER FILLER EXAM DESCRIPTION: DEXA AXIAL SKELETON BONE DENSITY 1 OR MORE SITES REASON FOR STUDY: 67 y/o year old F with given history of: history of AI therapy Osteoporosis screening Post menopausal Community Service Worker/Model: Conjecta Discovery SL ([id number]/N [id number]) CLINICAL INFORMATION: Current height: 65 inches Maximum [...] Vini Kaur M.D. MF: TOBIN Report ID: [id number] Reading Location: [place] [address] Procedure Note Vini Kaur MD - 04/03/2023 EXAM DESCRIPTION: DEXA AXIAL SKELETON BONE DENSITY 1 OR MORE SITES REASON FOR STUDY: 67 y/o year old F with given history of: history ofAI therapy Osteoporosis screening Post menopausal Community Service Worker/Model: Conjecta Discovery SL ([id number]/N [id number]) CLINICAL INFORMATION: Current height: 65 inches Maximum [...] Vini Kaur M.D. MF: TOBIN Report ID: [id number] Reading Location: [id number] Shaniqua Ellison NP IMG DXA PROCEDURES Fi nal Result * Screening Mammogram Right W Wesley Unilateral Only (03/28/2022 2:03 PM GETTER FILLER) Anatomical Region Laterality Modality Breast Right Mammography Narrative 03/28/2022 3:58 PM GETTER FILLER Mammogram Technique: Right Breast Digital Breast Tomosynthesis, Unilateral C-view 2D Screening mammogram. Views obtained: bilateral craniocaudal and bilateral mediolateral oblique. Computer Aided Detection was performed. Mammogram Findings: The present examination has been compared to prior imaging studies performed on 02/16/2020, at [facility]. [facility] on 04/17/2020 and 05/09/2020, and at [facility] on 03/22/2021. The breast is [...] prior imaging studies performed on 02/16/2020, at [facility]. [facility] on 04/17/2020 and 05/09/2020, and at [facility] on 03/22/2021. The breast is [...] Most Recently Relevant to Health Maintenance Insurance [facility] UHC MEDICARE ADVANTAGE [facility] MED[facility] Address: [address] [address] [place] [address] MEDICARE ADVANTAGE [facility]IC[facility] Address: [facility] [address] [address] [address] [place] [address] MEDICARE ADVANTAGE [facility] MEDIC[facility] Address: [address] [address] [place] [address] IDPA Advance Directives For more information, please contact: [phone] * Full Code (Latest Code Status on [...] 8:34 AM 10/18/2018 8:35 AM Care Teams Report Checker Relationship Specialty Start Date End Date Vijay Truong MD [address] [place] [address] PCP - General 08/08/16 Rubné Miranda MD PhD [address] [place] [address] Radiation Oncologist Radiation Oncology 07/27/20 Lila James MD [address] [address] Referring Physician Surgical Oncology 07/27/20 Emile Berger MD [address] [place] [address] Referring Physician Psychiatry & Neurology 02/05/22 Ash Fraga MD [address] [place] [address] Medical Oncologist/Gate Keeper Hematology and Oncology 06/11/22
--- OUTSIDE RECORDS SUMMARY | 2024-10-14 14:30 | XMS_ITS | Encounter Summary ---
Author Organization [facility] Healthcare Address [address] [place] [address] Care Team Providers Care Agricultural Technical Officer Name Role Phone Vijay Truong MD Primary Care Provider [phone] Rubén Miranda MD PhD Unavailable [phone] Lila James MD Unavailable [phone] Emile Berger MD Unavailable [phone] Ash Fraga MD Unavailable [phone] Reason for Visit * Reason Onset Date Comments Medical Records Request 09/19/2024 Encounter Details Date Type Department Care Team (Late st Contact Info) Description 09/19/2024 Telephone Family Physicians [facility] [address] [place] [address] Vijay Truong MD [address] [place] [address] Medical Records Request Social History [...] 06/26/2022 How often do you attend [facility] or congregation services? 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 [facility] gas line servicer Date Needed: KELLEY Delivery Method: Fax Fax number to use for return of records: [phone] Additional Comments/Concerns: Liseth GERARD Case Manger with [facility] called to request patients most recentlab results. Does the message need to be routed? Yes-Action Needed documented in this encounter Plan of Treatment Not on file documented as of this encounter Visit Diagnoses Not on filedocumented in this encounter Care Teams Agricultural Technical Officer Relationship Specialty Start Date End [place] [address] PCP - General 08/08/16 Rubén Miranda MD PhD [address] [place] [address] Radiation Oncologist Radiation Oncology 07/27/20 Lila James MD [address] [place] [address] Referring Physician Surgical Oncology 07/27/20 [place] [address] [place] [address] Referring Physician Psychiatry & Neurology 02/05/22 Ash Fraga MD [address] [place] [address] Medical Oncologist/Ruling Technician Hematology and Oncology 06/11/22 documented as of this encounter
--- OUTSIDE RECORDS SUMMARY | 2024-10-14 14:30 | XMS_ITS | Clinical Summary ---
Author Organization [facility] Address [address] [place] [address] Care Team Providers Care Customer Service Consultant Name Role Phone Vijay Truong MD Primary Care Provider [phone] Source Comments [facility],non-owned Affiliates and Associated Physician Practices is amultiple site organization consisting of ambulatory clinics and hospital sitesin [place], [place], [place] and [place]. This disclosure is being madepursuant to the Care Everywhere program and may not contain all information available regarding this patient. 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 MANAGED MEDICARE ADV Care Teams Customer Service Consultant Relationship Specialty Start Date End Date Vijay Truong MD [address] [place] [address] PCP - General Internal Medicine 01/06/24
--- NOTE | 2024-10-14 14:40 | ED.RECABL ---
HPI - Recheck/Abnormal Lab/Rx General Chief Complaint: Recheck/Abnormal Lab/Rx <Marcia aMtta APRN - Last Filed: 10/14/24 15:02> Stated Complaint: requesting us OF r ARM <Marcia Matta APRN - Last Filed: 10/14/24 15:02> Time Seen by Provider: 10/14/24 14:40 <Marcia Matta APRN - Last Filed: 10/14/24 15:02> Focused HPI: Patient is a 68-year-old female who presents to the ER with a red, swollen and painful left arm. She reports she 1st noticed the redness a couple days ago. Patient had a fistula placed in the left upper arm last summer and is needing a repeat ultrasound before they start using it for dialysis. She reports she does not currently receive peritoneal dialysis. Patient denies any recent antibiotic use. She endorses a history of diabetes and chronic kidney disease. Patient also endorses recent shortness of breath. According to pt's chart she was on Plavix in the past, but it has not been refilled since 2022. GENERAL: Ill-appearing, well-nourished, and in no acute distress. HEAD: Normocephalic, atraumatic. CHEST: Clear to auscultation. ?Mild respiratory distress. HEART: Regular rate and rhythm.? NEURO: ?Alert and oriented x3. Patient screened in triage and initial orders placed.? ?Additional care and disposition to be based upon?diagnostic testing and treatment. <Marcia Matta APRN - Last Filed: 10/14/24 15:02> History of Present Illness HPI narrative: I agree with the above HPI <Patrick Khoury MD - Last Filed: 10/14/24 22:15> Related Data Home Medications: Home Medications ?Medication ?Instructions ?Recorded ?Confirmed ?Last Taken ?Type aspirin 81 mg tablet,delayed 81 mg PO DAILY 09/15/22 10/14/24 Unknown History release atorvastatin 40 mg tablet 40 mg PO DAILY 09/15/22 10/14/24 10/14/24 History clopidogrel 75 mg tablet 75 mg PO DAILY 09/15/22 10/14/24 10/14/24 History duloxetine 30 mg capsule,delayed 30 mg PO BID 05/12/3110/14/24 10/14/24 History release letrozole 2.5 mg tablet 2.5 mg PO DAILY 09/15/22 10/14/24 10/14/24 History lisinopril 10 mg tablet 20 mg PO DAILY 09/15/22 10/14/24 10/14/24 History sertraline 50 mg tablet (Zoloft) 50 mg PO DAILY 09/15/22 10/14/24 10/14/24 History trazodone 100 mg tablet 100 mg PO HS 09/15/22 10/14/24 10/14/24 History calcitriol 0.25 mcg capsule 0.25 mcg PO .MWF 10/14/24 10/14/24 10/12/24 History calcium carb-ergocalciferol (vit 1 tablet PO DAILY 10/14/24 10/14/24 10/14/24 History D2) 600 mg calcium-200 unit tablet insulin glargine 100 unit/mL (3 18 unit subcut QPM 10/14/24 10/14/24 10/13/24 History mL) subcutaneous pen (Lantus Solostar U-100 Insulin) pantoprazole 40 mg tablet,delayed 40 mg PO DAILY 10/14/24 10/14/24 10/14/24 History release pen needle, diabetic 31 gauge x 10/14/24 10/14/24 Unknown History 09/23 (Sure Comfort Pen Needle) <Marcia Matta APRN - Last Filed: 10/14/24 15:02> Allergies/Adverse Reactions: Allergies Allergy/AdvReac Type Severity Reaction Status Date / Time No Known Allergies Allergy Verified 10/14/24 13:15 <Marcia Matta APRN - Last Filed: 10/14/24 15:02> Review of Systems Review of Systems: All systems reviewed & are unremarkable except as noted in HPI and below <Patrick Khoury MD - Last Filed: 10/14/24 22:15> PMFSH Past Medical History Medical History: Medical History Diabetes mellitus <Marcia Matta APRN - Last Filed: 10/14/24 15:02> Family History Family History: Family History (Updated 10/14/24 @ 18:57 by Angela Irby RN) Father Lung cancer Grandparent Diabetes mellitus <Marcia Matta APRN - Last Filed: 10/14/24 15:02> Social History Social History: Social History Smoking packs per day: 2 Smoking cigarettes per day: 40.0 Smoking status: Former smoker Tobacco type: cigarettes Alcohol intake: never Substance use: never Do You Feel Safe in your Home?: Yes Lack of Transportation: No Lack of Food: Never True Current Housing: I Have Housing Concerned About Future Housing: No Difficulty Paying Gas/Electric Bills: No Difficulty Paying for Meds: YES Currently Unemployed: No Education: High School Diploma/GED Difficulty w/ Childcare or Family Care: No Spiritual care concerns: Yes <Marcia Matta, COMMUNICATIONS SENIOR ASSOCIATE - Last Filed: 10/14/24 15:02> Exam Narrative: APPEARANCE: Well appearing, no pain, no distress, well-nourished. HEAD: normocephalic, atraumatic. EYES: PERRLA/EOMI, conjunctivae clear. NOSE: Normal no drainage EARS:TMS clear with good light reflex. THROAT: Pharynx clear, no exudate. NECK: Supple. No adenopathy, no masses. RESPIRATORY: Airway patent, respirations nonlabored. Clear to auscultation bilaterally, no rales, rhonchi, wheezing. CARDIOVASCULAR: Regular rate and rhythm without murmurs rubs or gallops. ABDOMINAL: Soft, nontender, nondistended, normal bowel sounds MUSCULOSKELETAL: Moves all extremities. Strength/ROM intact, No edema, No calf tenderness. NEURO: Alert. Cranial nerves II through XII intact. Good gait. Good coordination SKIN: Cellulitis of the left upper extremity <Patrick Khoury MD - Last Filed: 10/14/24 22:15> Course Vital Signs Vital signs: Vital Signs Temperature 98.1 F 10/14/24 14:50 Pulse Rate 91 10/14/24 14:50 Respiratory Rate 18 10/14/24 14:50 Blood Pressure 119/63 10/14/24 14:50 Pulse Oximetry 100 10/14/24 14:50 Temperature 97.8 F 10/14/24 20:00 Pulse Rate 94 10/14/24 20:00 Respiratory Rate 22 H 10/14/24 20:00 Blood Pressure 134/68 10/14/24 20:00 Pulse Oximetry 99 10/14/24 20:00 Oxygen Delivery Room Air 10/14/24 17:03 <Marcia Matta APRN - Last Filed: 10/14/24 15:02> Vital Signs Temperature 98.1 F 10/14/24 14:50 Pulse Rate 91 10/14/24 14:50 Respiratory Rate 18 10/14/24 14:50 Blood Pressure 119/63 10/14/24 14:50 Pulse Oximetry 100 10/14/24 14:50 Temperature 97.8 F 10/14/24 20:00 Pulse Rate 94 10/14/24 20:00 Respiratory Rate 22 H 10/14/24 20:00 Blood Pressure 134/68 10/14/24 20:00 Pulse Oximetry 99 10/14/24 20:00 Oxygen Delivery Room Air 10/14/24 17:03 <Patrick Khoury MD - Last Filed: 10/14/24 22:15> MDM - Recheck/Abnormal Lab/Rx MDM Narrative Medical decision making narrative: 68-year-old female present to emergency department for evaluation for left arm swelling. Patient denies any shortness of breath per patient was dyspneic on exertion emergency department. When at rest patient is saturating 100% on room air. Patient does have worsening left arm swelling and erythema. Patient is currently afebrile with no leukocytosis and hemoglobin of 9.5 which appears to be similar to her baseline. Patient has a creatinine of 3.8 with known chronic kidney disease, this does not appear to be far from her baseline. Patient's potassium is 5.1. Ultrasound was negative for DVT of left upper extremity. Suspect that the swelling and erythema secondary to a cellulitis. Chest x-ray was concerning for a left-sided pneumonia. Patient was started on Rocephin and azithromycin to cover both the cellulitis and pneumonia. Patient's kidney function is not appropriate for a CTA. V/Q scan will be ordered. I discussed case with hospitalist patient was accepted for admission. <Patrick Khoury MD - Last Filed: 10/14/24 22:15> Differential Diagnosis Differential diagnosis: Likely other (Left upper extremity DVT, PE, pneumonia left upper extremity cellulitis) <Patrick Khoury MD - Last Filed: 10/14/24 22:15> Lab Data Attestation: I reviewed the patient's lab results. <Patrick Khoury MD - Last Filed: 10/14/24 22:15> Result diagrams: 10/14/24 15:44 10/14/24 20:55 <Marcia Matta APRN - Last Filed: 10/14/24 15:02> Labs: Lab Results 10/14/24 Range/Units 15:44 WBC 9.5 (4.5-10.0) K/mm3 RBC 3.33 L (4.2-5.4) M/mm3 Hgb 9.5 L (12.0-15.0) g/dL Hct 29.6 L (37.0-47.0) % MCV 88.9 (80-100) fl MCH 28.5 (26-34) pg MCHC 32.1 (32-36) g/dl RDW 17.2 H (11.5-14.5) % Plt Count 361 (150-375) k/mm3 MPV 8.9 (7.4-10.4) fl Immature Gran % (Auto) 0.5 (0-0.5) % Neut % (Auto) 80.1 H (45.5-73.1) % Lymph % (Auto) 11.4 L (18.3-44.2) % [place] % (Auto) 7.3 (2.6-8.5) % Eos % (Auto) 0.4 (0-4.4) % Baso % (Auto) 0.3 (0.2-1.2) % Lymph # (Auto) 1.08 (0.9-3.2) K/mm3 [place] # (Auto) 0.7 H (0.1-0.6) K/mm3 Eos # (Auto) 0.0 (0-0.3) K/mm3 Baso # (Auto) 0.0 (0.0-0.1) K/mm3 Abs Immat Gran (auto) 0.05 H (0.00-0.031) K/mm3 Absolute Neuts (auto) 7.6 H (1.3-6.7) K/mm3 Absolute Nucleated RBC 0.000 (0.0-0.012) K/mm3 Nucleated RBC % 0.0 (0.0-0.2) % PT 12.9 (11.1-14.7) Seconds INR 1.0 APTT 24.2 (22.3-36.8) Seconds Sodium 139 (137-145) mmol/L Potassium 5.1 H (3.4-5.0) mmol/L Chloride 107 (98-107) mmol/L Carbon Dioxide 20 L (22-30) mmol/L Anion Gap 12 (4-12) mmol/L BUN 77 H (7-17) mg/dL Creatinine 3.80 H (0.7-1.0) mg/dL Estim Creat Clear Calc 13 ml/min Estimated GFR 12 L (59 - ) Glucose 62 L (65-110) mg/dL Calcium 8.8 (8.4-10.2) mg/dL Total Bilirubin 0.3 (0.2-1.3) mg/dL AST 39 H (14-36) U/L ALT 22 (6-35) U/L Alkaline Phosphatase 110 (38-126) U/L Total Protein 7.3 (6.3-8.2) g/dL Albumin 3.8 (3.5-5.1) g/dL <Marcia Matta, COMMUNICATIONS SENIOR ASSOCIATE - Last Filed: 10/14/24 15:02> Lab Results 10/14/24 Range/Units 15:44 WBC 9.5 (4.5-10.0) K/mm3 RBC 3.33 L (4.2-5.4) M/mm3 Hgb 9.5 L (12.0-15.0) g/dL Hct 29.6 L (37.0-47.0) % MCV 88.9 (80-100) fl MCH 28.5 (26-34) pg MCHC 32.1 (32-36) g/dl RDW 17.2 H (11.5-14.5) % Plt Count 361 (150-375) k/mm3 MPV 8.9 (7.4-10.4) fl Immature Gran % (Auto) 0.5 (0-0.5) % Neut % (Auto) 80.1 H (45.5-73.1) % Lymph % (Auto) 11.4 L (18.3-44.2) % [place] % (Auto) 7.3 (2.6-8.5) % Eos % (Auto) 0.4 (0-4.4) % Baso % (Auto) 0.3 (0.2-1.2) % Lymph # (Auto) 1.08 (0.9-3.2) K/mm3 [place] # (Auto) 0.7 H (0.1-0.6) K/mm3 Eos # (Auto) 0.0 (0-0.3) K/mm3 Baso # (Auto) 0.0 (0.0-0.1) K/mm3 Abs Immat Gran (auto) 0.05 H (0.00-0.031) K/mm3 Absolute Neuts (auto) 7.6 H (1.3-6.7) K/mm3 Absolute Nucleated RBC 0.000 (0.0-0.012) K/mm3 Nucleated RBC % 0.0 (0.0-0.2) % PT 12.9 (11.1-14.7) Seconds INR 1.0 APTT 24.2 (22.3-36.8) Seconds Sodium 139 (137-145) mmol/L Potassium 5.1 H (3.4-5.0) mmol/L Chloride 107 (98-107) mmol/L Carbon Dioxide 20 L (22-30) mmol/L Anion Gap 12 (4-12) mmol/L BUN 77 H (7-17) mg/dL Creatinine 3.80 H (0.7-1.0) mg/dL Estim Creat Clear Calc 13 ml/min Estimated GFR 12 L (59 - ) Glucose 62 L (65-110) mg/dL Calcium 8.8 (8.4-10.2) mg/dL Total Bilirubin 0.3 (0.2-1.3) mg/dL AST 39 H (14-36) U/L ALT 22 (6-35) U/L Alkaline Phosphatase 110 (38-126) U/L Total Protein 7.3 (6.3-8.2) g/dL Albumin 3.8 (3.5-5.1) g/dL <Patrick Khoury MD - Last Filed: 10/14/24 22:15> Imaging Data Radiologist's impression: Impressions Chest X-Ray 10/14/24 15:41 Impression: 1: Left upper lobe infiltrate, suspicious for pneumonia. Venous Doppler Study 10/14/24 15:45 IMPRESSION: 1. Patent left upper extremity veins. No evidence of deep venous thrombosis. <Patrick Khoury MD - Last Filed: 10/14/24 22:15> Discharge Plan Discharge Clinical Impression: Edema of left forearm, Cellulitis of arm, left, Dyspnea, Pneumonia <Marcia Matta APRN - Last Filed: 10/14/24 15:02> Patient Disposition: Still a Patient <Marcia Matta APRN - Last Filed: 10/14/24 15:02> Condition: Serious <Marcia Matta APRN - Last Filed: 10/14/24 15:02>
--- OUTSIDE RECORDS SUMMARY | 2024-10-14 14:47 | XMS_ITS | Continuity of Care Document ---
Author Organization [facility] Address [address] [place] [address] Phone Care Team Providers Care Coronary Clinical Specialist Name Role Phone Joaquín CHING, Elsa Unavailable [...] Diagnoses Date Provider Providers Copied on Encounter [facility], [address] [place] [address], [id number], tel:[phone] [facility] No Information Joaquín Hunter. [address] [place] [address], [id number], . tel:[phone] [facility], [address] [place] [address], [id number], tel:[phone] [facility] Joaquín Wrightca. [address] [place] [address], [id number], . tel:[phone] Referring Provider: Ashu Yusuf, [address] [place] [address] [address], [place], [address]. tel:[phone] [facility], [address] [place] [address], [id number], tel:[phone] [facility] Joaquín Wrightca. [address] [place] [address], [id number], . tel:[phone] Referring Provider: Ashu Yusuf, [address] [facility] [address], [place], [address]. tel:[phone] As per patient privacy policy some of the clinical information may not be visible. Family History Family Member Type Diagnosis Age At Onset No Information Payers Payer name Insurance type Covered constitution party ID Authoriza tion(s) [facility] [employer] CI [id number] Social History Type Description Quantity Date Captured Comments Sex Female Smoking Status No Information Sexual Orientation Straight or heterosexual Gender Identity Female Chief Complaint And Reason For Visit No Information Reason For Referral Reason For Referral No Information Plan Of Treatment Date Type Action Status Future Order: Radiology Order Up per Body Flouroscopy ([id number]), Ordered on: Ordered History Of Present Illness Encounter Date Complaint History Of Prese nt Illness No Information Functional Status Date Functional Assessmen t No Information Instructions Date Instruction Additional Infor mation No Information Assessments Type Assessment Date No Information Patient Care Teams Name Effective Dates (start - stop) Status Members No Information
--- NOTE | 2024-10-14 15:02 | ECG_ITS ---
Test Date: 2024-10-14 15:58:14 Measurements Intervals [place] Rate: 83 P: 6 ND: 131 QRS: 1 QRSD: 85 T: 35 QT: 352 QTc: 414 Interpretive Statements SINUS RHYTHM VOLTAGE CRITERIA FOR LVH BASELINE ARTIFACT- I, II, III, AVR, AVL, AVF, V1 BORDERLINE ECG No previous ECG available for comparison Electronically Signed On 10-14-2024 16:09:56 CDT by Alexandr Villela D.O.
[2024-10-14 15:50] LABS: Basophils Percent Auto 0.3 % (0.2-1.2); Eosinophils Percent Auto 0.4 % (0-4.4); Hematocrit 29.6 % (37.0-47.0); Hemoglobin 9.5 g/dL (12.0-15.0); Immature Granulocyte Absolute 0.05 K/mm3 (0.00-0.031); Immature Granulocyte Percent A 0.5 % (0-0.5); Lymphocytes Absolute Auto 1.08 K/mm3 (0.9-3.2); Lymphocytes Percent Auto 11.4 % (18.3-44.2); Mean Corpuscular HGB Conc 32.1 g/dl (32-36); Mean Corpuscular Hemoglobin 28.5 pg (26-34); Mean Corpuscular Volume 88.9 fl (80-100); Mean Platelet Volume 8.9 fl (7.4-10.4); Monocytes Absolute Auto 0.7 K/mm3 (0.1-0.6); Monocytes Percent Auto 7.3 % (2.6-8.5); Neutrophils Absolute Auto 7.6 K/mm3 (1.3-6.7); Neutrophils Percent Auto 80.1 % (45.5-73.1); Platelet Count Result 361 k/mm3 (150-375); Red Blood Count 3.33 M/mm3 (4.2-5.4); Red Cell Distribution Width 17.2 % (11.5-14.5); White Blood Count 9.5 K/mm3 (4.5-10.0)
[2024-10-14 16:00] LABS: Alanine Aminotransferase 22 U/L (6-35); Albumin Level 3.8 g/dL (3.5-5.1); Alkaline Phosphatase 110 U/L (38-126); Anion Gap 12 mmol/L (4-12); Aspartate Amino Transferase 39 U/L (14-36); Bilirubin,Total 0.3 mg/dL (0.2-1.3); Blood Urea Nitrogen 77 mg/dL (7-17); Calcium 8.8 mg/dL (8.4-10.2); Carbon Dioxide 20 mmol/L (22-30); Chloride 107 mmol/L (98-107); Estimated CRCL calculation 13 ml/min; Estimated Glomerular Filt Rate 12; Glucose 62 mg/dL (65-110); Potassium 5.1 mmol/L (3.4-5.0); Sodium 139 mmol/L (137-145); Total Protein 7.3 g/dL (6.3-8.2)
[2024-10-14 16:01] LABS: Prothrombin Time 12.9 Seconds (11.1-14.7)
[2024-10-14 16:02] LABS: Partial Thromboplastin Time 24.2 Seconds (22.3-36.8)
[2024-10-14] MEDS: ALBUTEROL SULFATE NEB 2.5 MG/3 ML INH 5 MG INHALATION (17:02)
[2024-10-14] MEDS: AZITHROMYCIN 500 MG/NS 250 ML 500 MG/250 ML BAG 250 MG IVPB (17:17)
[2024-10-14] MEDS: SODIUM ZIRCONIUM CYCLOSILICATE 10 GM POWD.PACK PO (17:46)
--- NOTE | 2024-10-14 18:39 | ADMGEN ---
This patient, Dana Mejia, was admitted to IMU Room 232-01 at 1825. Patient/family oriented to hospital policies and general routines including ID bracelet, bed and alarms, visiting hours, pain management, procedures, bathroom and other care routines, personal items, smoking policy, room service/diet, and visiting hours. Information on how to activate the Rapid Response Team has been discussed. Patient/Family are encouraged to report perceived risks to care and to ask questions if they do not understand what they are told or what they should do.
[2024-10-14 20:49] LABS: Glucose Point of Care 80 mg/dl (65-105)
[2024-10-14 21:35] LABS: Anion Gap 11 mmol/L (4-12); Blood Urea Nitrogen 73 mg/dL (7-17); Carbon Dioxide 20 mmol/L (22-30); Chloride 108 mmol/L (98-107); Estimated CRCL calculation 12 ml/min; Estimated Glomerular Filt Rate 11; Glucose 86 mg/dL (65-110); Potassium 4.6 mmol/L (3.4-5.0); Sodium 139 mmol/L (137-145)
[2024-10-14 21:35] LABS: Glucose Point of Care 166 mg/dl (65-105)
[2024-10-14] MEDS: traZODone HCL 50 MG TABLET 100 MG PO (21:35)
[2024-10-14] MEDS: HEPARIN SODIUM 5,000 UNITS/ML VIAL 5000 UNITS SUB-Q (21:35)
--- NOTE | 2024-10-14 23:30 | P.HP_ITS ---
H&P: HPI History of Present Illness Date/Time: 10/14/24 23:30 Chief Complaint: Redness and swelling of left arm Narrative: 68-year-old female with medical history of memory loss, prior CVA, chronic kidney disease stage 5, AV fistula left arm, essential hypertension, and type 2 diabetes who presented to the ER requesting an ultrasound of her left arm due to redness and swelling. The patient had been at [facility] and was told to come to our ER for evaluation since they did not have ultrasound services. Patient's family reports the patient does have a history of poor memory but she does not yet have an official diagnosis of dementia. The patient at the time my evaluation is alert oriented to person, place and month but cannot state the year. She points to her arm when I ask why she came to the hospital. She reports that she is having pain that is 2/3 in intensity in her arm. Symptoms have been ongoing for a couple of days. She reports having some chills. She denies having any actual fever. She does have a history of picking at her skin and scratching. She reports that she itches all the time but it is been getting worse recently. She states that she sees a swiss machinist in [place] and had a fistula placed in her left arm last year in anticipation of needing dialysis in the future. She is not on dialysis at this time. She denies any dysuria. She reports that she usually urinates 3 to 4 times a day. She has not been able to urinate since she came to the ER. She denies any symptoms of incomplete bladder emptying or dysuria. Several hours after my evaluation nursing staff called to admit the patient still had not been able to urinate despite getting up several times. Bladder scan was performed and demonstrated greater than 600 mL of retained urine. Patient is not on any medications that would usually be associated with urinary retention. She denies any nausea or vomiting and reports a good appetite. She does report shortness of breath with exertion for couple of months. She denies any cough or congestion. Labs in the ER demonstrated creatinine of 4 and a mildly elevated potassium at 5.1. The patient's prior creatinine had been around 4 as well last month no prior creatinines available prior to that. Patient's glucoses in the ER 62. Left upper extremity venous Doppler was negative for DVT chest x-ray demonstrated possible left upper lobe pneumonia Review of Systems 2 Review of Systems: 12 systems were reviewed with pertinent positives and negatives per HPI. Except as documented in the HPI, all other systems were reviewed and are negative. [facility] Past Medical History Medical History Breast cancer GERD (gastroesophageal reflux disease) Hyperlipidemia Essential hypertension CVA (cerebral vascular accident) Chronic kidney disease Diabetic peripheral neuropathy Diabetes mellitus Surgical History Surgical History History of cardiac catheterization Status post creation of arteriovenous fistula History of total abdominal hysterectomy and bilateral salpingo-oophorectomy Family History Family History Father Lung cancer Grandparent Diabetes mellitus Social History Social History Social History: Code status: Full code (per EMR) Surrogate decision maker: Alvaro Galaviz (son) Smoking packs per day: 2 Smoking cigarettes per day: 40.0 Smoking status: Former smoker Tobacco type: cigarettes Alcohol intake: never Substance use: never Do You Feel Safe in your Home?: Yes Lack of Transportation: No Lack of Food: Never True Current Housing: I Have Housing Concerned About Future Housing: No Difficulty Paying Gas/Electric Bills: No Difficulty Paying for Meds: YES Currently Unemployed: No Education: High School Diploma/GED Difficulty w/ Childcare or Family Care: No Additional living arrangements comments: She has lived with her son since approximately 2019. She ambulates with a walker. 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 She raised 3 sons. Spiritual care concerns: Yes Meds Home Medications and Allergies Home Medications ?Medication ?Instructions ?Recorded ?Confirmed ?Type aspirin 81 mg tablet,delayed 81 mg PO DAILY 09/15/22 10/14/24 History release atorvastatin 40 mg tablet 40 mg PO DAILY 09/15/22 10/14/24 History clopidogrel 75 mg tablet 75 mg PO DAILY 09/15/22 10/14/24 History duloxetine 30 mg capsule,delayed 30 mg PO BID 09/15/22 10/14/24 History release letrozole 2.5 mg tablet 2.5 mg PO DAILY 09/15/22 10/14/24 History lisinopril 10 mg tablet 20 mg PO DAILY 09/15/22 10/14/24 History sertraline 50 mg tablet (Zoloft) 50 mg PO DAILY 09/15/22 10/14/24 History trazodone 100 mg tablet 100 mg PO HS 09/15/22 10/14/24 History calcitriol 0.25 mcg capsule 0.25 mcg PO .MWF 10/14/24 10/14/24 History calcium carb-ergocalciferol (vit 1 tablet PO DAILY 10/14/24 10/14/24 History D2) 600 mg calcium-200 unit tablet insulin glargine 100 unit/mL (3 18 unit subcut QPM 10/14/24 10/14/24 History mL) subcutaneous pen (Lantus Solostar U-100 Insulin) pantoprazole 40 mg tablet,delayed 40 mg PO DAILY 10/14/24 10/14/24 History release pen needle, diabetic 31 gauge x 10/14/24 10/14/24 History 5/16 (Sure Comfort Pen Needle) Allergies Allergy/AdvReac Type Severity Reaction Status Date / Time No Known Allergies Allergy Verified 10/14/24 13:15 Vital Signs Vital Signs - 24 hr 10/14/24 14:50 10/14/24 15:39 10/14/24 16:01 Temperature 98.1 F 97.8 F Pulse Rate 91 89 84 Respiratory Rate 18 18 30 H Blood Pressure 119/63 149/78 H 165/93 H Pulse Oximetry 100 100 Oxygen Delivery 10/14/24 16:17 10/14/24 16:31 10/14/24 17:03 Temperature Pulse Rate 83 83 91 Respiratory Rate 23 H 23 H 18 Blood Pressure 159/82 H 165/80 H Pulse Oximetry 99 Oxygen Delivery Room Air 10/14/24 17:03 10/14/24 17:17 10/14/24 17:19 Temperature Pulse Rate 91 84 83 Respiratory Rate 18 20 18 Blood Pressure 151/98 H Pulse Oximetry 100 Oxygen Delivery 10/14/24 17:31 10/14/24 18:44 10/14/24 20:00 Temperature 98.2 F 97.8 F Pulse Rate 90 87 94 Respiratory Rate 24 H 22 H 22 H Blood Pressure 146/76 H 162/68 H 134/68 Pulse Oximetry 100 96 99 Oxygen Delivery 10/14/24 20:00 Temperature Pulse Rate Respiratory Rate Blood Pressure Pulse Oximetry Oxygen Delivery Room Air Exam 2 Narrative: Weight 67.2 kg BMI 23.9 Const: Other: No acute distress, well-developed well-nourished, appears stated age HENMT: Other: Upper and lower dentures in place, mucous membranes are tacky, no oral pharyngeal erythema Eyes: Other: Pupils are equal and reactive, positive conjunctival pallor, no scleral icterus Neck: Other: No JVD, no lymphadenopathy Resp: Other: Clear to auscultation bilaterally anterior and posterior lung faust, no increased work of breathing Cardio: Other: Regular rate, regular rhythm, 2+ right radial pulse and right pedal pulse, 1+ left pedal pulse, 2/6 systolic murmur, GI: Other: Soft, nontender, nondistended, positive bowel sounds Skin: Other: Generalized pallor, non jaundice, multiple scars to bilateral dorsal forearms, erythema to the left forearm with 1+ edema, small bandage to the lateral dorsal forearm Neuro: Other: Alert oriented to person, place, month confused as to the year, speech is clear and fluent, patient is at least moderately hard of hearing, no localizing neurologic deficits noted during the course of conversation Extrem: Other: 5/5 warehouse trainer strength bilaterally, decreased fine sensation in feet bilaterally, normal straight leg raise strength, edema and erythema of the left forearm as discussed above, bruit over the left proximal forearm Psych: Other: Appropriate mood and affect, pleasantly confused and cooperative, fair judgment and insight H&P: Results Labs Labs: Laboratory Tests 10/14/24 15:44 10/14/24 20:55 10/14/24 10/14/24 10/14/24 15:44 20:35 20:55 WBC 9.5 RBC 3.33 L Hgb 9.5 L Hct 29.6 L MCV 88.9 MCH 28.5 MCHC 32.1 RDW 17.2 H Plt Count 361 MPV 8.9 Immature Gran % (Auto) 0.5 Neut % (Auto) 80.1 H Lymph % (Auto) 11.4 L [place] % (Auto) 7.3 Eos % (Auto) 0.4 Baso % (Auto) 0.3 Lymph # (Auto) 1.08 [place] # (Auto) 0.7 H Eos # (Auto) 0.0 Baso # (Auto) 0.0 Abs Immat Gran (auto) 0.05 H Absolute Neuts (auto) 7.6 H Absolute Nucleated RBC 0.000 Nucleated RBC % 0.0 PT 12.9 INR 1.0 APTT 24.2 Sodium 139 139 Potassium 5.1 H 4.6 Chloride 107 108 H Carbon Dioxide 20 L 20 L Anion Gap 12 11 BUN 77 H 73 H Creatinine 3.80 H 4.01 H Estim Creat Clear Calc 13 12 Estimated GFR 12 L 11 L Glucose 62 L 86 POC Capillary Glucose 80 Calcium 8.8 9.0 Total Bilirubin 0.3 AST 39 H ALT 22 Alkaline Phosphatase 110 Total Protein 7.3 Albumin 3.8 10/14/24 21:27 WBC RBC Hgb Hct MCV MCH MCHC RDW Plt Count MPV Immature Gran % (Auto) Neut % (Auto) Lymph % (Auto) [place] % (Auto) Eos % (Auto) Baso % (Auto) Lymph # (Auto) [place] # (Auto) Eos # (Auto) Baso # (Auto) Abs Immat Gran (auto) Absolute Neuts (auto) Absolute Nucleated RBC Nucleated RBC % PT INR APTT Sodium Potassium Chloride Carbon Dioxide Anion Gap BUN Creatinine Estim Creat Clear Calc Estimated GFR Glucose POC Capillary Glucose 166 H Calcium Total Bilirubin AST ALT Alkaline Phosphatase Total Protein Albumin Impressions Chest X-Ray 10/14/24 15:41 Impression: 1: Left upper lobe infiltrate, suspicious for pneumonia. Venous Doppler Study 10/14/24 15:45 IMPRESSION: 1. Patent left upper extremity veins. No evidence of deep venous thrombosis. EKG: Test Date: 2024-10-14 15:58:14 Measurements Intervals [place] Rate: 83 P: 6 DC: 131 QRS: 1 QRSD: 85 T: 35 QT: 352 QTc: 414 Interpretive Statements SINUS RHYTHM VOLTAGE CRITERIA FOR LVH BASELINE ARTIFACT- I, II, III, AVR, AVL, AVF, V1 BORDERLINE ECG No previous ECG available for comparison All imaging and EKGs personally reviewed and interpreted. And unless stated otherwise agree with radiologic and cardiology interpretation. Assessment and Plan Assessment and plan (1) Cellulitis of arm, left: Code(s): L03.114 - Cellulitis of left upper limb Status: Acute (2) Pneumonia: Qualifiers: Laterality: left Lung location: upper lobe of lung Pneumonia type: due to unspecified organism Qualified Code(s): J18.9 - Pneumonia, unspecified organism Code(s): J18.9 - Pneumonia, unspecified organism Status: Acute (3) Chronic kidney disease: Qualifiers: Chronic kidney disease stage: stage 5 (GFR < 15), not on chronic dialysis Qualified Code(s): N18.5 - Chronic kidney disease, stage 5 Code(s): N18.9 - Chronic kidney disease, unspecified Status: Acute (4) Diabetes mellitus: Qualifiers: Diabetes mellitus complication detail: without coma Diabetes mellitus complication status: with hypoglycemia Diabetes mellitus long term acute care registered nurse insulin use: with long term acute care registered nurse use Diabetes mellitus type: type 2 Qualified Code(s): E11.649 - Type 2 diabetes mellitus with hypoglycemia without coma; Z79.4 - intermediate (current) use of insulin Code(s): E11.9 - Type 2 diabetes mellitus without complications Status: Acute (5) Memory impairment of gradual onset: Code(s): R41.3 - Other amnesia Status: Acute Plan Patient has cellulitis of the left forearm and does have a history of scratching and picking at her skin. She does have chronic puritis is been worsening likely due to her worsening renal function and uremia. She was started on Rocephin for possible pneumonia which should also cover for possible cellulitis. The patient's x-ray suggested possible left upper lobe pneumonia but patient denies any symptoms that would fit with pneumonia. She is having some dyspnea on exertion but this seems to be more longstanding in nature. She is not having cough fever other upper respiratory symptoms. Will check COVID flu and RSV PCR. She was also started on azithromycin for possible pneumonia. Will check urine Legionella pneumococcal antigen. Will also check mycoplasma titer. She does have a distant history of smoking but denies any known COPD. She is not actively wheezing so will hold off on nebulizer treatments at this time. Will repeat CBC with a.m. labs. V/Q scan was ordered from the ER to rule out pulmonary embolism but at this time pulmonary embolism less likely. Patient does have elevated BUN from baseline but stable creatinine. Her mucous membranes do appear to be tacky and she may have some component of dehydration. Which she is taking good oral intake at the time of my evaluation. Will hold off on giving her additional IV fluids and will encourage oral intake. The patient was noted to have urinary retention after my evaluation and subsequently Mejia catheter has been ordered due to the large volume of urinary retention greater than 700 mL. Will repeat electrolyte panel with a.m. labs. The patient does have type 2 diabetes mellitus treated with insulin. She was initially hypoglycemic in the ER but glucoses improved to 192 after eating. Will decrease the patient's home long-acting insulin as she likely has decreased renal excretion of her insulin due to her degree of renal dysfunction. Will add low-dose sliding scale insulin a.c. as needed for hyperglycemia. Hypoglycemia protocol has also been ordered. Will check Accu-Cheks a.c. HS. Patient has had gradual development of memory impairment. She would benefit from neuro cognitive testing as outpatient. She likely has at least some early cognitive impairment or mild dementia. Will continue to monitor. Will transfer patient to medical floor. Patient has been admitted as observation status. Quality VTE Prophylaxis VTE prophylaxis: pharmacologic ordered (Heparin 5000 units subQ q.12 hours) Hospitalist [facility] Advance Care Plan I have confirmed that the patient's Advanced Care Plan is present, code status is documented, or surrogate decision maker is listed in patient medical record.: Yes Medication Reconciliation I have utilized all available resources to obtain, update and review the patients current medications (includes all prescriptions, OTC, herbals, cannabis, and nutritional supplements).: Yes
[2024-10-14 23:42] LABS: Glucose Point of Care 194 mg/dl (65-105)
[2024-10-15] VITALS (7 sets, daily range): BP systolic 133–153; BP diastolic 55–87; PULSE 77–97; RESP 16–20; TEMP 36.5–37.2; O2SAT 98–100
[2024-10-15 03:40] LABS: Add Urine Microscopic? YES; Appearance Urine Clear (Clear); Bacteria Urine None Seen /hpf; Bilirubin Urine Negative (Negative); Blood Urine Trace (Negative); Color Urine Yellow (Yellow); Glucose Urine UA Trace mg/dL (Negative); Ketones Urine Negative (Negative); Leukocyte Esterase Ur 1+ LEU/UL (Negative); Nitrate Urine Negative (Negative); Protein Urine 3+ mg/dL (Negative); RBC Urine 0-2 /hpf (0-2); Specific Grav Ur 1.011 (1.001-1.035); Squamous Epithelial Cell Urine None Seen /hpf (Few); Urobilinogen Urine 0.2 mg/dL (<2.0)
[2024-10-15] MEDS: INSULIN GLARGINE (*BKC) 100 UNITS/ML 8 UNITS SUB-Q (03:49)
[2024-10-15 03:52] LABS: Glucose Point of Care 127 mg/dl (65-105)
--- NOTE | 2024-10-15 03:52 | PC.NURSE ---
The patient tried a few times without success to void on the toilet. Since she had no output so far this shift, she was bladder scanned which revealed 761cc in the bladder. This was reported to the physician. This RN received a VORB to perform a straight catheterization on the patient. It was not noted until the catheter was inserted that the MD entered orders into the computer for a Mejia. See flowsheet documentation for straight catheterization documentation. Physician notified of successful procedure per original verbal order. Will continue to monitor patient for signs of retention.
[2024-10-15 04:21] LABS: Basophils Percent Auto 0.4 % (0.2-1.2); Eosinophils Absolute Auto 0.1 K/mm3 (0-0.3); Eosinophils Percent Auto 1.4 % (0-4.4); Hemoglobin 7.4 g/dL (12.0-15.0); Immature Granulocyte Absolute 0.04 K/mm3 (0.00-0.031); Immature Granulocyte Percent A 0.5 % (0-0.5); Lymphocytes Absolute Auto 1.41 K/mm3 (0.9-3.2); Lymphocytes Percent Auto 18.3 % (18.3-44.2); Mean Corpuscular HGB Conc 32.2 g/dl (32-36); Mean Corpuscular Hemoglobin 28.8 pg (26-34); Mean Corpuscular Volume 89.5 fl (80-100); Mean Platelet Volume 9.1 fl (7.4-10.4); Monocytes Absolute Auto 0.7 K/mm3 (0.1-0.6); Monocytes Percent Auto 8.6 % (2.6-8.5); Neutrophils Absolute Auto 5.4 K/mm3 (1.3-6.7); Neutrophils Percent Auto 70.8 % (45.5-73.1); Platelet Count Result 274 k/mm3 (150-375); Red Blood Count 2.57 M/mm3 (4.2-5.4); Red Cell Distribution Width 17.6 % (11.5-14.5); White Blood Count 7.7 K/mm3 (4.5-10.0)
[2024-10-15 04:47] LABS: Anion Gap 11 mmol/L (4-12); Blood Urea Nitrogen 77 mg/dL (7-17); Calcium 8.2 mg/dL (8.4-10.2); Carbon Dioxide 19 mmol/L (22-30); Chloride 106 mmol/L (98-107); Estimated CRCL calculation 12 ml/min; Estimated Glomerular Filt Rate 12; Glucose 149 mg/dL (65-110); Phosphorus 5.9 mg/dL (2.5-4.5); Potassium 4.4 mmol/L (3.4-5.0); Sodium 136 mmol/L (137-145)
[2024-10-15 04:48] LABS: Influenza A QL RT-PCR Negative (Negative); Influenza B QL RT-PCR Negative (Negative); SARS-CoV-2 RNA PCR Negative (Negative)
[2024-10-15] MEDS: DEXTROSE 50% 25 GM/50 ML SYRINGE IV PUSH (07:26)
[2024-10-15 08:21] LABS: Glucose Point of Care 51 mg/dl (65-105)
[2024-10-15 08:25] LABS: Glucose Point of Care 134 mg/dl (65-105)
[2024-10-15] MEDS: PANTOPRAZOLE 40 MG TABLET PO (09:09)
[2024-10-15] MEDS: LETROZOLE (*CHEMO) 2.5 MG TABLET PO (09:09)
[2024-10-15] MEDS: SERTRALINE HCL 50 MG TABLET PO (09:09)
[2024-10-15] MEDS: SODIUM BICARBONATE TAB 325 MG TABLET PO ×2 (09:09→17:40)
[2024-10-15] MEDS: CLOPIDOGREL BISULFATE 75 MG TABLET PO (09:09)
[2024-10-15] MEDS: ATORVASTATIN 40 MG TABLET PO (09:09)
[2024-10-15] MEDS: CALCIUM/VITAMIN D 500 MG/5 MCG (200 I.U.) TABLET PO (09:10)
[2024-10-15] MEDS: DULoxetine HCL 30 MG CAPSULE.DR PO ×2 (09:10→17:40)
[2024-10-15] MEDS: lisinopriL 20 MG TABLET PO (09:11)
[2024-10-15] MEDS: ASPIRIN 81 MG ENTERIC TABLET PO (09:13)
--- NOTE | 2024-10-15 10:24 | PM.IMPN ---
Progress Note: A&P Assessment and Plan (1) Cellulitis of arm, left: Code(s): L03.114 - Cellulitis of left upper limb Status: Acute Assessment and Plan: Left forearm cellulitis Started on ceftriaxone Ultrasound upper left extremity shows no evidence of DVT Ordered nasal MRSA Consider vancomycin if nasal MRSA is positive Monitor vitals Blood culture pending (2) Pneumonia: Qualifiers: Laterality: left Lung location: upper lobe of lung Pneumonia type: due to unspecified organism Qualified Code(s): J18.9 - Pneumonia, unspecified organism Code(s): J18.9 - Pneumonia, unspecified organism Status: Acute Assessment and Plan: Chest x-ray shows left upper lobe infiltrate suspicious for pneumonia Patient started on ceftriaxone and azithromycin Pending Legionella urine antigen Vital signs improved and stable RSV COVID flu negative monitor cultures MRSA pending encourage oral intake Ventilation perfusion scan pending (3) Chronic kidney disease: Qualifiers: Chronic kidney disease stage: stage 5 (GFR < 15), not on chronic dialysis Qualified Code(s): N18.5 - Chronic kidney disease, stage 5 Code(s): N18.9 - Chronic kidney disease, unspecified Status: Acute Assessment and Plan: -monitor closely during diuresis -Avoid nephrotoxic drugs. -Monitor antihypertensive drug therapy. -Avoid NSAIDs. -Routine CMP monitoring GFR. -Monitor electrolytes especially potassium. -Antibiotic doses depending on creatinine clearance. -Pharmacy does medications. 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 (6) Anemia: Code(s): D64.9 - Anemia, unspecified Status: Acute Assessment and Plan: Order H&H Order anemia panel Order FOBT Subjective Date/time seen: 10/15/24 10:24 Interval history: Patient is admitted in the setting of pneumonia and cellulitis. Hemoglobin dropped from 9.5-7.4. Possible dilutional. Will repeat H&H at 1:00 p.m. Review of Systems Review of Systems: 12 systems were reviewed with pertinent positives and negatives per HPI. Except as documented in the HPI, all other systems were reviewed and are negative. Exam Narrative: Weight 67.2 kg BMI 23.9 Const: Other: No acute distress, well-developed well-nourished, appears stated age HENMT: Other: Upper and lower dentures in place, mucous membranes are tacky, no oral pharyngeal erythema Eyes: Other: Pupils are equal and reactive, positive conjunctival pallor, no scleral icterus Neck: Other: No JVD, no lymphadenopathy Resp: Other: Clear to auscultation bilaterally anterior and posterior lung faust, no increased work of breathing Cardio: Other: Regular rate, regular rhythm, 2+ right radial pulse and right pedal pulse, 1+ left pedal pulse, 2/6 systolic murmur, GI: Other: Soft, nontender, nondistended, positive bowel sounds Skin: Other: Generalized pallor, non jaundice, multiple scars to bilateral dorsal forearms, erythema to the left forearm with 1+ edema, small bandage to the lateral dorsal forearm Neuro: Other: Alert oriented to person, place, month confused as to the year, speech is clear and fluent, patient is at least moderately hard of hearing, no localizing neurologic deficits noted during the course of conversation Extrem: Other: 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, decreased fine sensation in feet bilaterally, normal straight leg raise strength, edema and erythema of the left forearm as discussed above, bruit over the left proximal forearm Psych: Other: Appropriate mood and affect, pleasantly confused and cooperative, fair judgment and insight Objective Data Vital Signs Vital Signs: Vital Signs - 24 hr 10/14/24 14:50 10/14/24 15:39 10/14/24 16:01 Temperature 98.1 F 97.8 F Pulse Rate 91 89 84 Respiratory Rate 18 18 30 H Blood Pressure 119/63 149/78 H 165/93 H Pulse Oximetry 100 100 Oxygen Delivery Fraction of Inspired Oxygen 10/14/24 16:17 10/14/24 16:31 10/14/24 17:03 Temperature Pulse Rate 83 83 91 Respiratory Rate 23 H 23 H 18 Blood Pressure 159/82 H 165/80 H Pulse Oximetry 99 Oxygen Delivery Room Air Fraction of Inspired Oxygen 10/14/24 17:03 10/14/24 17:17 10/14/24 17:19 Temperature Pulse Rate 91 84 83 Respiratory Rate 18 20 18 Blood Pressure 151/98 H Pulse Oximetry 100 Oxygen Delivery Fraction of Inspired Oxygen 10/14/24 17:31 10/14/24 18:44 10/14/24 20:00 Temperature 98.2 F 97.8 F Pulse Rate 90 87 94 Respiratory Rate 24 H 22 H 22 H Blood Pressure 146/76 H 162/68 H 134/68 Pulse Oximetry 100 96 99 Oxygen Delivery Fraction of Inspired Oxygen 10/14/24 20:00 10/14/24 20:00 10/14/24 20:55 Temperature Pulse Rate 91 92 Respiratory Rate Blood Pressure Pulse Oximetry 100 Oxygen Delivery Room Air Room Air Fraction of Inspired Oxygen 21 10/14/24 22:00 10/14/24 23:56 10/15/24 00:00 Temperature 97.8 F Pulse Rate 97 87 Respiratory Rate 20 Blood Pressure 120/62 Pulse Oximetry 97 Oxygen Delivery Room Air Fraction of Inspired Oxygen 10/15/24 00:00 10/15/24 02:00 10/15/24 04:00 Temperature 97.8 F Pulse Rate 88 97 80 Respiratory Rate 20 Blood Pressure 133/55 L Pulse Oximetry 99 Oxygen Delivery Fraction of Inspired Oxygen 10/15/24 04:00 10/15/24 04:00 10/15/24 06:00 Temperature Pulse Rate 80 81 Respiratory Rate Blood Pressure Pulse Oximetry Oxygen Delivery Room Air Fraction of Inspired Oxygen 10/15/24 08:00 Temperature 98.2 F Pulse Rate 77 Respiratory Rate 18 Blood Pressure 148/63 H Pulse Oximetry 100 Oxygen Delivery Fraction of Inspired Oxygen Intake/Output Intake/Output: Intake & Output 10/12/24 10/13/24 10/14/24 10/15/24 23:59 23:59 23:59 23:59 Intake Total 50 480 Output Total 2101 Balance 50 -1621 Meds/Results Medications: Active Medications Generic Name Dose Route Start Last Admin Trade Name Freq PRN Reason Stop Dose Admin Aspirin 81 mg 10/15/24 09:00 10/15/24 09:13 Aspirin 81 Mg Enteric Tablet PO 81 mg DAILY JITENDRA Administration Atorvastatin Calcium 40 mg 10/15/24 09:00 10/15/24 09:09 Atorvastatin 40 Mg Tablet PO 40 mg DAILY JITENDRA Administration Calcitriol 0.25 mcg 10/17/24 09:00 Calcitriol 0.25 Mcg Capsule PO [id number] JITENDRA Calcium Carbonate 500 mg 10/15/24 09:00 10/15/24 09:10 Calcium/Vitamin D 500 Mg/5 Mcg (200 I.U.) Tablet PO 500 mg QAM JITENDRA Administration Clopidogrel Bisulfate 75 mg 10/15/24 09:00 10/15/24 09:09 Clopidogrel Bisulfate 75 Mg Tablet PO 75 mg DAILY JITENDRA Administration Dextrose 12.5 gm 10/14/24 20:33 10/15/24 07:26 Dextrose 50% 25 Gm/50 Ml Syringe IV PUSH 12.5 gm PRN PRN Administration Hypoglycemia Protocol Duloxetine HCl 30 mg 10/15/24 09:00 10/15/24 09:10 Duloxetine Hcl 30 Mg Capsule.Dr PO 30 mg BID JITENDRA Administration Glucagon 1 mg 10/14/24 20:33 Glucagon For Inj 1 Mg Vial IM PRN PRN Hypoglycemia Protocol Glucose 15 gm 10/14/24 20:33 Glucose Oral Gel 15 Gm Of Glucse In 37.5 Gm Tube PO PRN PRN Hypoglycemia Protocol Heparin Sodium (Porcine) 5,000 units 10/14/24 21:00 10/15/24 09:13 Heparin Sodium 5,000 Units/Ml Vial SUB-Q Not Given Q12HR [facility] Ceftriaxone Sodium 1 gm in 50 mls @ 100 mls/hr 10/15/24 17:00 Rocephin 1 Gm/Ns 50 Ml IVPB Q24H [facility] Azithromycin 500 mg in 250 mls @ 250 mls/hr 10/15/24 18:00 Zithromax IVPB Q24H [facility] Dextrose 1,000 mls @ 100 mls/hr 10/14/24 20:33 Dextrose 5% 1,000 Ml IVPB PRN PRN Hypoglycemia Protocol Insulin Aspart 2 - 5 units 10/15/24 08:00 10/15/24 07:57 Insulin Aspart (*Bkc) 100 Units/Ml SUB-Q Not Given TIDWM [facility] Protocol Insulin Glargine 10 units 10/15/24 21:00 Insulin Glargine (*Bkc) 100 Units/Ml SUB-Q HS [facility] Letrozole 2.5 mg 10/15/24 09:00 10/15/24 09:09 Letrozole (*Chemo) 2.5 Mg Tablet PO 2.5 mg DAILY JITENDRA Administration Lisinopril 20 mg 10/15/24 09:00 10/15/24 09:11 Lisinopril 20 Mg Tablet PO 20 mg DAILY JITENDRA Administration Pantoprazole Sodium 40 mg 10/15/24 09:00 10/15/24 09:09 Pantoprazole 40 Mg Tablet PO 40 mg DAILY JITENDRA Administration Sertraline HCl 50 mg 10/15/24 09:00 10/15/24 09:09 Sertraline Hcl 50 Mg Tablet PO 50 mg DAILY JITENDRA Administration Sodium Bicarbonate 325 mg 10/15/24 09:00 10/15/24 09:09 Sodium Bicarbonate Tab 325 Mg Tablet PO 325 mg BID JITENDRA Administration Trazodone HCl 100 mg 10/14/24 21:00 10/14/24 21:35 Trazodone Hcl 50 Mg Tablet PO 100 mg HS JITENDRA Administration Radiology Results: ITS Impressions Chest X-Ray 10/14/24 15:41 Impression: 1: Left upper lobe infiltrate, suspicious for pneumonia. Venous Doppler Study 10/14/24 15:45 IMPRESSION: 1. Patent left upper extremity veins. No evidence of deep venous thrombosis. Labs Labs: Laboratory Results - last 24 hr 10/14/24 10/14/24 10/14/24 15:44 20:35 20:55 WBC 9.5 RBC 3.33 L Hgb 9.5 L Hct 29.6 L MCV 88.9 MCH 28.5 MCHC 32.1 RDW 17.2 H Plt Count 361 MPV 8.9 Immature Gran % (Auto) 0.5 Neut % (Auto) 80.1 H Lymph % (Auto) 11.4 L [place] % (Auto) 7.3 Eos % (Auto) 0.4 Baso % (Auto) 0.3 Lymph # (Auto) 1.08 [place]aines # (Auto) 0.7 H Eos # (Auto) 0.0 Baso # (Auto) 0.0 Abs Immat Gran (auto) 0.05 H Absolute Neuts (auto) 7.6 H Absolute Nucleated RBC 0.000 Nucleated RBC % 0.0 PT 12.9 INR 1.0 APTT 24.2 Sodium 139 139 Potassium 5.1 H 4.6 Chloride 107 108 H Carbon Dioxide 20 L 20 L Anion Gap 12 11 BUN 77 H 73 H Creatinine 3.80 H 4.01 H Estim Creat Clear Calc 13 12 Estimated GFR 12 L 11 L Glucose 62 L 86 POC Capillary Glucose 80 Calcium 8.8 9.0 Phosphorus Total Bilirubin 0.3 AST 39 H ALT 22 Alkaline Phosphatase 110 Total Protein 7.3 Albumin 3.8 Urine Color Urine Appearance Urine pH Ur Specific [place] Urine Protein Urine Glucose (UA) Urine Ketones Ur Blood (Man) Urine Nitrate Urine Bilirubin Urine Urobilinogen Leukocyte Esterase Rfl Urine RBC Urine WBC Ur Squamous Epith Cells Urine Bacteria Urine Casts Influenza A (RT-PCR) Influenza B (RT-PCR) SARS-CoV-2 RNA (RT-PCR) 10/14/24 10/14/24 10/15/24 21:27 23:11 03:32 WBC RBC Hgb Hct MCV MCH MCHC RDW Plt Count MPV Immature Gran % (Auto) Neut % (Auto) Lymph % (Auto) [place] % (Auto) Eos % (Auto) Baso % (Auto) Lymph # (Auto) Haines # (Auto) Eos # (Auto) Baso # (Auto) Abs Immat Gran (auto) Absolute Neuts (auto) Absolute Nucleated RBC Nucleated RBC % PT INR APTT Sodium Potassium Chloride Carbon Dioxide Anion Gap BUN Creatinine Estim Creat Clear Calc Estimated GFR Glucose POC Capillary Glucose 166 H 194 H Calcium Phosphorus Total Bilirubin AST ALT Alkaline Phosphatase Total Protein Albumin Urine Color Yellow Urine Appearance Clear Urine pH 6.0 Ur Specific [place] 1.011 Urine Protein 3+ H Urine Glucose (UA) Trace H Urine Ketones Negative Ur Blood (Man) Trace Urine Nitrate Negative Urine Bilirubin Negative Urine Urobilinogen 0.2 Leukocyte Esterase Rfl 1+ H Urine RBC 0-2 Urine WBC 6-10 H Ur Squamous Epith Cells None seen Urine Bacteria None seen Urine Casts 3-5 Influenza A (RT-PCR) Influenza B (RT-PCR) SARS-CoV-2 RNA (RT-PCR) 10/15/24 10/15/24 10/15/24 03:46 04:03 04:07 WBC RBC Hgb Hct MCV MCH MCHC RDW Plt Count MPV Immature Gran % (Auto) Neut % (Auto) Lymph % (Auto) [place] % (Auto) Eos % (Auto) Baso % (Auto) Lymph # (Auto) [place] # (Auto) Eos # (Auto) Baso # (Auto) Abs Immat Gran (auto) Absolute Neuts (auto) Absolute Nucleated RBC Nucleated RBC % PT INR APTT Sodium 136 L Potassium 4.4 Chloride 106 Carbon Dioxide 19 L Anion Gap 11 BUN 77 H Creatinine 3.89 H Estim Creat Clear Calc 12 Estimated GFR 12 L Glucose 149 H POC Capillary Glucose 127 H Calcium 8.2 L Phosphorus 5.9 H Total Bilirubin AST ALT Alkaline Phosphatase Total Protein Albumin 3.0 L Urine Color Urine Appearance Urine pH Ur Specific [place] Urine Protein Urine Glucose (UA) Urine Ketones Ur Blood (Man) Urine Nitrate Urine Bilirubin Urine Urobilinogen Leukocyte Esterase Rfl Urine RBC Urine WBC Ur Squamous Epith Cells Urine Bacteria Urine Casts Influenza A (RT-PCR) Negative Influenza B (RT-PCR) Negative SARS-CoV-2 RNA (RT-PCR) Negative 10/15/24 10/15/24 10/15/24 04:13 07:20 08:23 WBC 7.7 RBC 2.57 L Hgb 7.4 L Hct 23.0 L MCV 89.5 MCH 28.8 MCHC 32.2 RDW 17.6 H Plt Count 274 MPV 9.1 Immature Gran % (Auto) 0.5 Neut % (Auto) 70.8 Lymph % (Auto) 18.3 [place] % (Auto) 8.6 H Eos % (Auto) 1.4 Baso % (Auto) 0.4 Lymph # (Auto) 1.41 [place] # (Auto) 0.7 H Eos # (Auto) 0.1 Baso # (Auto) 0.0 Abs Immat Gran (auto) 0.04 H Absolute Neuts (auto) 5.4 Absolute Nucleated RBC 0.000 Nucleated RBC % 0.0 PT INR APTT Sodium Potassium Chloride Carbon Dioxide Anion Gap BUN Creatinine Estim Creat Clear Calc Estimated GFR Glucose POC Capillary Glucose 51 L* 134 H Calcium Phosphorus Total Bilirubin AST ALT Alkaline Phosphatase Total Protein Albumin Urine Color Urine Appearance Urine pH Ur Specific [place] Urine Protein Urine Glucose (UA) Urine Ketones Ur Blood (Man) Urine Nitrate Urine Bilirubin Urine Urobilinogen Leukocyte Esterase Rfl Urine RBC Urine WBC Ur Squamous Epith Cells Urine Bacteria Urine Casts Influenza A (RT-PCR) Influenza B (RT-PCR) SARS-CoV-2 RNA (RT-PCR) Quality VTE Prophylaxis VTE prophylaxis: pharmacologic ordered (Heparin 5000 units subQ q.12 hours) Hospitalist MIPS Advance Care Plan I have confirmed that the patient's Advanced Care Plan is present, code status is documented, or surrogate decision maker is listed in patient medical record.: Yes Medication Reconciliation I have utilized all available resources to obtain, update and review the patients current medications (includes all prescriptions, OTC, herbals, cannabis, and nutritional supplements).: Yes
[2024-10-15 10:50] LABS: Immature Reticulocyte Fraction 11.1 % (3.0-15.9); Reticulocyte Hemoglobin Conten 34.5 pg (28.2-36.6); Reticulocyte Percent 0.88 % (0.7-4.3); Reticulocytes Absolute 0.02 10^6/uL (0.02-0.10)
[2024-10-15 11:18] LABS: Hemoglobin A1C 6.4 % (<5.7)
[2024-10-15 11:23] LABS: Bilirubin Direct 0.1 mg/dL (0-0.3); Lactate Dehydrogenase 217 U/L (120-246)
[2024-10-15 11:30] LABS: Transferrin 193 mg/dL (206-381)
[2024-10-15 12:02] LABS: Glucose Point of Care 108 mg/dl (65-105)
[2024-10-15 12:30] LABS: Folic Acid 11.3 ng/mL (2.76->20)
--- NOTE | 2024-10-15 12:46 | PM.CNNEP ---
Assessment and Plan Assessment and plan (1) Chronic kidney disease: Qualifiers: Chronic kidney disease stage: stage 5 (GFR < 15), not on chronic dialysis Qualified Code(s): N18.5 - Chronic kidney disease, stage 5 Code(s): N18.9 - Chronic kidney disease, unspecified Status: Acute Assessment and Plan: patient has chronic kidney disease. This looks like it stage 5 assuming this is her baseline number. Will try to get some records from her PCP most likely this is from diabetes and hypertension and may be some vascular disease. She is seeing a sheet metal lay out worker in [place] who has placed a fistula. It has a very weak bruit so probably should be checked that when she goes home. I asked her to do this. The patient does not have any uremic symptoms. No need to start dialysis while she is here (2) Anemia: Code(s): D64.9 - Anemia, unspecified Status: Acute Assessment and Plan: the patient has anemia. Will start Epogen. No need for iron studies since the patient has an infection (3) Cellulitis of arm, left: Code(s): L03.114 - Cellulitis of left upper limb Status: Acute Assessment and Plan: the patient does have a cellulitis. Likely does not seem to have progressed above the elbow. I think the fistula is okay for now. (4) Pulmonary infiltrate: Code(s): R91.8 - Other nonspecific abnormal finding of lung field Status: Acute Assessment and Plan: The patient has a right upper lobe infiltrate on her chest x-ray. She does have a little bit of a cough. No striking symptoms consistent with pneumonia. not much of a cough. No white cell count elevation. No fevers. Will get a QuantiFERON gold . She would need this to start dialysis anyway (5) Diabetes mellitus: Qualifiers: Diabetes mellitus type: type 2 Diabetes mellitus nursing home insulin use: with supervisor intermediates use Diabetes mellitus complication status: with hypoglycemia Diabetes mellitus complication detail: without coma Qualified Code(s): E11.649 - Type 2 diabetes mellitus with hypoglycemia without coma; Z79.4 - termite treater helper (current) use of insulin Code(s): E11.9 - Type 2 diabetes mellitus without complications Status: Acute Assessment and Plan: Management per hospitalist. (6) Essential hypertension: Code(s): I10 - Essential (primary) hypertension Status: Acute Assessment and Plan: blood pressure bit high in the ER last evening but seems to have settled into the 120-150 range. Will see how she does over the next day or History of Present Illness Reason for Consult Consult date: 10/15/24 Chief Complaint Chief complaint: Cellulitis/Dyspnea/Pneumonia/Hyperkalemia History of Present Illness Narrative: Dana is a very pleasant 68-year-old lady who has multiple medical problems including chronic kidney disease stage 5, a left upper arm fistula in place ready for dialysis when she needs it, anemia, hyperlipidemia, hypertension, depression, history of breast cancer, GERD, stroke in distant past but she does not know the details, peripheral neuropathy, diabetes. The patient came in the hospital because of redness and swelling of the left arm. the patient says that she developed some swelling in the left forearm a few days ago. she then developed a skin tear in the lateral upper aspect of the volar surface of the arm and then the swelling became worse and she started leaking out of that skin tear. She developed pain and so came in the hospital. The patient says she has had a cough for couple days but no fevers or shortness of breath. She was seen in the ER. They felt that she had cellulitis. She was given antibiotics and admitted. Review of Systems Constitutional: Constitutional: Reports no additional constitutional complaints Eyes: Eyes: Reports no additional eye complaints ENT: Reports system reviewed and no additional complaints, except as documented Cardiovascular: Cardiovascular: Reports no additional cardiovascular complaints Respiratory: Respiratory: Reports no additional respiratory complaints Gastrointestinal: Gastrointestinal: Reports no additional gastrointestinal complaints Genitourinary: Genitourinary: Reports no additional female genitourinary complaints Musculoskeletal: Musculoskeletal: Reports no additional musculoskeletal complaints Integumentary/Breasts: Skin/Breast: Reports system reviewed and no additional complaints, except as docu Neurologic: Reports system reviewed and no additional complaints, except as documented Psychiatric: Psychiatric: Reports no additional psychiatric complaints Endocrine: Endocrine: Reports no additional endocrine complaints [facility] Past Medical History Medical History (Updated 10/15/24 @ 12:57 by Taye Starks MD) Breast cancer GERD (gastroesophageal reflux disease) Hyperlipidemia Essential hypertension CVA (cerebral vascular accident) Chronic kidney disease Diabetic peripheral neuropathy Diabetes mellitus Surgical History Surgical History History of cardiac catheterization Status post creation of arteriovenous fistula History of total abdominal hysterectomy and bilateral salpingo-oophorectomy Family History Family History Father Lung cancer Grandparent Diabetes mellitus Social History Social History Social History: Code status: Full code (per EMR) Surrogate decision maker: Alvaro Galaviz (son) Smoking packs per day: 2 Smoking cigarettes per day: 40.0 Smoking status: Former smoker Tobacco type: cigarettes Alcohol intake: never Substance use: never Do You Feel Safe in your Home?: Yes Lack of Transportation: No Lack of Food: Never True Current Housing: I Have Housing Concerned About Future Housing: No Difficulty Paying Gas/Electric Bills: No Difficulty Paying for Meds: YES Currently Unemployed: No Education: High School Diploma/GED Difficulty w/ Childcare or Family Care: No Additional living arrangements comments: She has lived with her son since approximately 2019. She ambulates with a walker. 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 She raised 3 sons. Spiritual care concerns: Yes Meds Home Medications and Allergies Home Medications ?Medication ?Instructions ?Recorded ?Confirmed ?Type aspirin 81 mg tablet,delayed 81 mg PO DAILY 09/15/22 10/14/24 History release atorvastatin 40 mg tablet 40 mg PO DAILY 09/15/22 10/14/24 History clopidogrel 75 mg tablet 75 mg PO DAILY 09/15/22 10/14/24 History duloxetine 30 mg capsule,delayed 30 mg PO BID 09/15/22 10/14/24 History release letrozole 2.5 mg tablet 2.5 mg PO DAILY 09/15/22 10/14/24 History lisinopril 10 mg tablet 20 mg PO DAILY 09/15/22 10/14/24 History sertraline 50 mg tablet (Zoloft) 50 mg PO DAILY 09/15/22 10/14/24 History trazodone 100 mg tablet 100 mg PO HS 09/15/22 10/14/24 History calcitriol 0.25 mcg capsule 0.25 mcg PO .MWF 10/14/24 10/14/24 History calcium carb-ergocalciferol (vit 1 tablet PO DAILY 10/14/24 10/14/24 History D2) 600 mg calcium-200 unit tablet insulin glargine 100 unit/mL (3 18 unit subcut QPM 10/14/24 10/14/24 History mL) subcutaneous pen (Lantus Solostar U-100 Insulin) pantoprazole 40 mg tablet,delayed 40 mg PO DAILY 10/14/24 10/14/24 History release pen needle, diabetic 31 gauge x 10/14/24 10/14/24 History 5/16 (Sure Comfort Pen Needle) Allergies Allergy/AdvReac Type Severity Reaction Status Date / Time No Known Allergies Allergy Verified 10/14/24 13:15 Vital Signs Vital Signs - 24 hr 10/14/24 14:50 10/14/24 15:39 10/14/24 16:01 Temperature 98.1 F 97.8 F Pulse Rate 91 89 84 Respiratory Rate 18 18 30 H Blood Pressure 119/63 149/78 H 165/93 H Pulse Oximetry 100 100 Oxygen Delivery Fraction of Inspired Oxygen 10/14/24 16:17 10/14/24 16:31 10/14/24 17:03 Temperature Pulse Rate 83 83 91 Respiratory Rate 23 H 23 H 18 Blood Pressure 159/82 H 165/80 H Pulse Oximetry 99 Oxygen Delivery Room Air Fraction of Inspired Oxygen 10/14/24 17:03 10/14/24 17:17 10/14/24 17:19 Temperature Pulse Rate 91 84 83 Respiratory Rate 18 20 18 Blood Pressure 151/98 H Pulse Oximetry 100 Oxygen Delivery Fraction of Inspired Oxygen 10/14/24 17:31 10/14/24 18:44 10/14/24 20:00 Temperature 98.2 F 97.8 F Pulse Rate 90 87 94 Respiratory Rate 24 H 22 H 22 H Blood Pressure 146/76 H 162/68 H 134/68 Pulse Oximetry 100 96 99 Oxygen Delivery Fraction of Inspired Oxygen 10/14/24 20:00 10/14/24 20:00 10/14/24 20:55 Temperature Pulse Rate 91 92 Respiratory Rate Blood Pressure Pulse Oximetry 100 Oxygen Delivery Room Air Room Air Fraction of Inspired Oxygen 21 10/14/24 22:00 10/14/24 23:56 10/15/24 00:00 Temperature 97.8 F Pulse Rate 97 87 Respiratory Rate 20 Blood Pressure 120/62 Pulse Oximetry 97 Oxygen Delivery Room Air Fraction of Inspired Oxygen 10/15/24 00:00 10/15/24 02:00 10/15/24 04:00 Temperature 97.8 F Pulse Rate 88 97 80 Respiratory Rate 20 Blood Pressure 133/55 L Pulse Oximetry 99 Oxygen Delivery Fraction of Inspired Oxygen 10/15/24 04:00 10/15/24 04:00 10/15/24 06:00 Temperature Pulse Rate 80 81 Respiratory Rate Blood Pressure Pulse Oximetry Oxygen Delivery Room Air Fraction of Inspired Oxygen 10/15/24 08:00 Temperature 98.2 F Pulse Rate 77 Respiratory Rate 18 Blood Pressure 148/63 H Pulse Oximetry 100 Oxygen Delivery Fraction of Inspired Oxygen Exam Narrative: Exam Narrative: Well developed well-nourished female in no acute distress Skin is warm and dry without rash Head normocephalic atraumatic Eyes normal sclerae and conjunctivae Mouth normal lips teeth and gums Neck no nodes no thyromegaly no carotid bruits Axillae no nodes Back no CVA tenderness Lungs symmetric and clear to auscultation and percussion Heart regular rate and rhythm without rub or gallop Abdomen bowel sounds positive soft nontender, no HSM, masses, or bruits. Extremities no cyanosis, clubbing, or edema. She has a very mild bruit in the left upper arm. The patient has some swelling in the left arm below the elbow and some induration as well as erythema and a small scab in the lateral aspect of the arm as described in the History Pulses 2+ equal in radial arteries Psychological not anxious or depressed Neuro alert and oriented x3 motor 5/5 cranial nerves 2-12 intact reflexes 2+ and equal in the biceps and patellar tendons cerebellar normal rapid alternating movements Results Lab Results 10/15/24 04:13 10/15/24 04:03 Lab results: Most recent lab results Calcium 8.2 mg/dL (8.4-10.2) L 10/15/24 04:03 Phosphorus 5.9 mg/dL (2.5-4.5) H 10/15/24 04:03
--- NOTE | 2024-10-15 13:01 | PC.NURSE ---
Pt transferred to [facility] via wheelchair. Report given to Beckie GERARD
[2024-10-15 13:10] LABS: Hematocrit 25.7 % (37.0-47.0); Hemoglobin 8.2 g/dL (12.0-15.0)
[2024-10-15] MEDS: EPOETIN ALFA-EPBX 10,000 UNITS/ML VIAL 10000 UNITS SUB-Q (13:24)
[2024-10-15 13:29] LABS: Iron 48 ug/dL (37-170)
[2024-10-15 13:38] LABS: Percent Iron Saturation 15 % (20-50)
[2024-10-15 14:10] LABS: MRSA (PCR) NOT DETECTED (NOT DETECTE)
--- NOTE | 2024-10-15 15:03 | PC.NURSE ---
This patient, Dana Mejia, was received from [ ] on 10/15/24 at 1300. Patient/family oriented to unit policies and routines. report from Cathy
[2024-10-15 16:47] LABS: Glucose Point of Care 128 mg/dl (65-105)
[2024-10-15] MEDS: AZITHROMYCIN 500 MG/NS 250 ML 500 MG/250 ML BAG 250 MG IVPB (18:40)
--- NOTE | 2024-10-15 20:13 | PM.EVENT ---
Event Note Event Note Event Note: Iron studies reviewed. Serum ferritin of 10. Venofer 500 mg IV piggyback x1 ordered.
[2024-10-15 20:55] LABS: Glucose Point of Care 193 mg/dl (65-105)
[2024-10-15 20:58] LABS: IFOB Positive Control Positive; Immunochemical Fecal Occult Bl Positive (N)
[2024-10-15] MEDS: HEPARIN SODIUM 5,000 UNITS/ML VIAL 5000 UNITS SUB-Q (21:31)
[2024-10-15] MEDS: traZODone HCL 50 MG TABLET 100 MG PO (21:31)
[2024-10-15] MEDS: IRON SUCROSE COMPLEX 400 MG, IRON SUCROSE COMPLEX 100 MG in SODIUM CHLORIDE 0.9% IV 250 ML 78.57 MG IVPB (21:32)
[2024-10-15] MEDS: INSULIN GLARGINE (*BKC) 100 UNITS/ML SUB-Q (21:40)
[2024-10-16 06:00] VITALS: BP 135/75; PULSE 84; RESP 17; TEMP 36.3; O2SAT 98
[2024-10-16 06:04] LABS: Hematocrit 28.5 % (37.0-47.0); Hemoglobin 9.1 g/dL (12.0-15.0); Mean Corpuscular HGB Conc 31.9 g/dl (32-36); Mean Corpuscular Hemoglobin 28.9 pg (26-34); Mean Corpuscular Volume 90.5 fl (80-100); Mean Platelet Volume 9.1 fl (7.4-10.4); Platelet Count Result 298 k/mm3 (150-375); Red Blood Count 3.15 M/mm3 (4.2-5.4); Red Cell Distribution Width 17.2 % (11.5-14.5); White Blood Count 10.1 K/mm3 (4.5-10.0)
[2024-10-16 06:27] LABS: Albumin Level 3.2 g/dL (3.5-5.1); Anion Gap 9 mmol/L (4-12); Blood Urea Nitrogen 73 mg/dL (7-17); Calcium 8.2 mg/dL (8.4-10.2); Carbon Dioxide 22 mmol/L (22-30); Chloride 107 mmol/L (98-107); Estimated CRCL calculation 12 ml/min; Estimated Glomerular Filt Rate 12; Glucose 107 mg/dL (65-110); Phosphorus 5.6 mg/dL (2.5-4.5); Potassium 4.7 mmol/L (3.4-5.0); Sodium 138 mmol/L (137-145)
[2024-10-16 06:58] LABS: Haptoglobin 234 mg/dL (43-212)
[2024-10-16 08:15] LABS: Glucose Point of Care 98 mg/dl (65-105)
[2024-10-16] MEDS: CLOPIDOGREL BISULFATE 75 MG TABLET PO (09:43)
[2024-10-16] MEDS: PANTOPRAZOLE 40 MG TABLET PO (09:43)
[2024-10-16] MEDS: LETROZOLE (*CHEMO) 2.5 MG TABLET PO (09:44)
[2024-10-16] MEDS: ATORVASTATIN 40 MG TABLET PO (09:44)
[2024-10-16] MEDS: SERTRALINE HCL 50 MG TABLET PO (09:45)
[2024-10-16] MEDS: DULoxetine HCL 30 MG CAPSULE.DR PO ×2 (09:45→17:51)
[2024-10-16] MEDS: SODIUM BICARBONATE TAB 325 MG TABLET PO ×2 (09:45→17:51)
[2024-10-16] MEDS: lisinopriL 20 MG TABLET PO (09:45)
[2024-10-16] MEDS: ASPIRIN 81 MG ENTERIC TABLET PO (09:46)
[2024-10-16] MEDS: CALCIUM/VITAMIN D 500 MG/5 MCG (200 I.U.) TABLET PO (09:46)
--- NOTE | 2024-10-16 10:14 | PM.PNNEP ---
Progress Note: A&P Assessment and Plan (1) Chronic kidney disease: Qualifiers: Chronic kidney disease stage: stage 5 (GFR < 15), not on chronic dialysis Qualified Code(s): N18.5 - Chronic kidney disease, stage 5 Code(s): N18.9 - Chronic kidney disease, unspecified Status: Acute Assessment and Plan: patient has chronic kidney disease. This looks like it stage 5 assuming this is her baseline number. Will try to get some records from her PCP most likely this is from diabetes and hypertension and may be some vascular disease. She is seeing a assistant professor nurse education in [place] who has placed a fistula. It has a very weak bruit so probably should be checked that when she goes home. I asked her to do this. The patient does not have any uremic symptoms. Renal function is stable. No objection to her going home if okay with everybody else (2) Anemia: Code(s): D64.9 - Anemia, unspecified Status: Acute Assessment and Plan: the patient has anemia. Will start Epogen. Hemoglobin improved quite a bit. Will check another 1 tomorrow (3) Cellulitis of arm, left: Code(s): L03.114 - Cellulitis of left upper limb Status: Acute Assessment and Plan: the patient does have a cellulitis. Likely does not seem to have progressed above the elbow. I think the fistula is okay for now. (4) Pulmonary infiltrate: Code(s): R91.8 - Other nonspecific abnormal finding of lung field Status: Acute Assessment and Plan: The patient has a right upper lobe infiltrate on her chest x-ray. She does have a little bit of a cough. No striking symptoms consistent with pneumonia. not much of a cough. No white cell count elevation. No fevers. QuantiFERON pending. Getting ceftriaxone and azithromycin. (5) Diabetes mellitus: Qualifiers: Diabetes mellitus complication detail: without coma Diabetes mellitus complication status: with hypoglycemia Diabetes mellitus continuous churn buttermaker insulin use: with continuous churn buttermaker use Diabetes mellitus type: type 2 Qualified Code(s): E11.649 - Type 2 diabetes mellitus with hypoglycemia without coma; Z79.4 - terminal worker (current) use of insulin Code(s): E11.9 - Type 2 diabetes mellitus without complications Status: Acute Assessment and Plan: Management per hospitalist. (6) Essential hypertension: Code(s): I10 - Essential (primary) hypertension Status: Acute Assessment and Plan: blood pressure running in the 130s to 150s Subjective Date/time seen: 10/16/24 10:14 Interval history: Patient feels okay. No chest pain or shortness of breath. Still has some discomfort in the left arm. Review of Systems Cardiovascular: Cardiovascular: Reports no additional cardiovascular complaints Respiratory: Respiratory: Reports no additional respiratory complaints Gastrointestinal: Gastrointestinal: Reports no additional gastrointestinal complaints Genitourinary: Genitourinary: Reports no additional female genitourinary complaints Exam Narrative: WDWN in NAD skin no rash or subQ nodules head ncat lungs clear bilaterally cor reg no rub abd BS+ nontender and soft ext no edema. Objective Data Vital Signs Vital Signs: Vital Signs - 24 hr 10/15/24 13:16 10/15/24 20:00 10/15/24 20:32 Temperature 99.0 F 97.7 F Pulse Rate 89 87 Respiratory Rate 16 16 Blood Pressure 150/87 H 153/77 H Pulse Oximetry 99 98 Oxygen Delivery Room Air Fraction of Inspired Oxygen 21 10/16/24 06:00 Temperature 97.4 F L Pulse Rate 84 Respiratory Rate 17 Blood Pressure 135/75 Pulse Oximetry 98 Oxygen Delivery Fraction of Inspired Oxygen Intake/Output Intake/Output: Intake & Output 10/13/24 10/14/24 10/15/24 10/16/24 23:59 23:59 23:59 23:59 Intake Total 50 1010 280 Output Total 2101 Balance 50 -1091 280 Meds/Results Medications: Active Medications Generic Name Dose Route Start Last Admin Trade Name Freq PRN Reason Stop Dose Admin Aspirin 81 mg 10/15/24 09:00 10/16/24 09:46 Aspirin 81 Mg Enteric Tablet PO 81 mg DAILY [facility] Administration Atorvastatin Calcium 40 mg 10/15/24 09:00 10/16/24 09:44 Atorvastatin 40 Mg Tablet PO 40 mg DAILY [facility] Administration Calcitriol 0.25 mcg 10/17/24 09:00 Calcitriol 0.25 Mcg Capsule PO [id number] [facility] Calcium Carbonate 500 mg 10/15/24 09:00 10/16/24 09:46 Calcium/Vitamin D 500 Mg/5 Mcg (200 I.U.) Tablet PO 500 mg QAM [facility] Administration Clopidogrel Bisulfate 75 mg 10/15/24 09:00 10/16/24 09:43 Clopidogrel Bisulfate 75 Mg Tablet PO 75 mg DAILY [facility] Administration Dextrose 12.5 gm 10/14/24 20:33 10/15/24 07:26 Dextrose 50% 25 Gm/50 Ml Syringe IV PUSH 12.5 gm PRN PRN Administration Hypoglycemia Protocol Duloxetine HCl 30 mg 10/15/24 09:00 10/16/24 09:45 Duloxetine Hcl 30 Mg Capsule. PO 30 mg BID JITENDRA Administration Epoetin Angel-epbx 10,000 units 10/15/24 09:00 10/15/24 13:24 Epoetin Angel-Epbx 10,000 Units/Ml Vial SUB-Q 10,000 units [id number]@09 [facility]ENDR[facility] Administration Glucagon 1 mg 10/14/24 20:33 Glucagon For Inj 1 Mg Vial IM PRN PRN Hypoglycemia Protocol Glucose 15 gm 10/14/24 20:33 Glucose Oral Gel 15 Gm Of Glucse In 37.5 Gm Tube PO PRN PRN Hypoglycemia Protocol Heparin Sodium (Porcine) 5,000 units 10/14/24 21:00 10/16/24 08:03 Heparin Sodium 5,000 Units/Ml Vial SUB-Q Not Given Q12HR [facility]ITENDRA Ceftriaxone Sodium 1 gm in 50 mls @ 100 mls/hr 10/15/24 17:00 10/15/24 18:10 Rocephin 1 Gm/Ns 50 Ml IVPB Infused Q24H [facility]EN[facility] Infusion Azithromycin 500 mg in 250 mls @ 250 mls/hr 10/15/24 18:00 10/15/24 18:40 Zithromax IVPB 250 mls/hr Q24H [facility] Administration Dextrose 1,000 mls @ 100 mls/hr 10/14/24 20:33 Dextrose 5% 1,000 Ml IVPB PRN PRN Hypoglycemia Protocol Insulin Aspart 2 - 5 units 10/15/24 08:00 10/16/24 08:14 Insulin Aspart (*Bkc) 100 Units/Ml SUB-Q Not Given TIDWM [facility] Protocol Insulin Glargine 5 units 10/15/24 21:00 10/15/24 21:40 Insulin Glargine (*Bkc) 100 Units/Ml SUB-Q 5 units HS [facility]ITENDR[facility] Administration Letrozole 2.5 mg 10/15/24 09:00 10/16/24 09:44 Letrozole (*Chemo) 2.5 Mg Tablet PO 2.5 mg DAILY [facility] Administration Lisinopril 20 mg 10/15/24 09:00 10/16/24 09:45 Lisinopril 20 Mg Tablet PO 20 mg DAILY [facility] Administration Pantoprazole Sodium 40 mg 10/15/24 09:00 10/16/24 09:43 Pantoprazole 40 Mg Tablet PO 40 mg DAILY [facility] Administration Polyethylene Glycol 17 gm 10/15/24 12:30 10/16/24 08:00 Polyethylene Glycol 3350 17 Gm Powd.Pack PO Not Given QAM [facility]ENDR[facility] Sertraline HCl 50 mg 10/15/24 09:00 10/16/24 09:45 Sertraline Hcl 50 Mg Tablet PO 50 mg DAILY [facility] Administration Sodium Bicarbonate 325 mg 10/15/24 09:00 10/16/24 09:45 Sodium Bicarbonate Tab 325 Mg Tablet PO 325 mg BID [facility]EN[facility] Administration Trazodone HCl 100 mg 10/14/24 21:00 10/15/24 21:31 Trazodone Hcl 50 Mg Tablet PO 100 mg HS JITENDRA Administration Radiology Results: ITS Impressions Chest X-Ray 10/14/24 15:41 Impression: 1: Left upper lobe infiltrate, suspicious for pneumonia. Venous Doppler Study 10/14/24 15:45 IMPRESSION: 1. Patent left upper extremity veins. No evidence of deep venous thrombosis. Labs Labs: Laboratory Results - last 24 hr 10/14/24 10/15/24 10/15/24 15:44 04:04 11:17 WBC RBC Hgb Hct MCV MCH MCHC RDW Plt Count MPV Absolute Retic 0.02 Percent Retic 0.88 Immature Retic Fraction 11.1 Retic Hgb Content 34.5 Haptoglobin Sodium Potassium Chloride Carbon Dioxide Anion Gap BUN Creatinine Estim Creat Clear Calc Estimated GFR Glucose POC Capillary Glucose 108 H Hemoglobin A1c 6.4 H Calcium Phosphorus Iron TIBC % Saturation Transferrin 193 L Ferritin Direct Bilirubin 0.1 Lactate Dehydrogenase 217 Albumin Vitamin B12 275.0 Folate 11.3 TSH (Reflex) Nasal MRSA (PCR) Stl Occult Blood (IFOB) DONNIE, Poly Interpret Neg 10/15/24 10/15/24 10/15/24 12:55 12:58 16:43 WBC RBC Hgb 8.2 L Hct 25.7 L MCV MCH MCHC RDW Plt Count MPV Absolute Retic Percent Retic Immature Retic Fraction Retic Hgb Content Haptoglobin 234 H Sodium Potassium Chloride Carbon Dioxide Anion Gap BUN Creatinine Estim Creat Clear Calc Estimated GFR Glucose POC Capillary Glucose 128 H Hemoglobin A1c Calcium Phosphorus Iron 48 TIBC 315 % Saturation 15 L Transferrin Ferritin 10.30 L Direct Bilirubin Lactate Dehydrogenase Albumin Vitamin B12 Folate TSH (Reflex) 1.630 Nasal MRSA (PCR) Not detected Stl Occult Blood (IFOB) DONNIE, Poly Interpret 10/15/24 10/15/24 10/16/24 19:57 20:53 05:53 WBC 10.1 H RBC 3.15 L Hgb 9.1 L Hct 28.5 L MCV 90.5 MCH 28.9 MCHC 31.9 L RDW 17.2 H Plt Count 298 MPV 9.1 Absolute Retic Percent Retic Immature Retic Fraction Retic Hgb Content Haptoglobin Sodium 138 Potassium 4.7 Chloride 107 Carbon Dioxide 22 Anion Gap 9 BUN 73 H Creatinine 3.87 H Estim Creat Clear Calc 12 Estimated GFR 12 L Glucose 107 POC Capillary Glucose 193 H Hemoglobin A1c Calcium 8.2 L Phosphorus 5.6 H Iron TIBC % Saturation Transferrin Ferritin Direct Bilirubin Lactate Dehydrogenase Albumin 3.2 L Vitamin B12 Folate TSH (Reflex) Nasal MRSA (PCR) Stl Occult Blood (IFOB) Positive H DONNIE, Poly Interpret 10/16/24 08:12 WBC RBC Hgb Hct MCV MCH MCHC RDW Plt Count MPV Absolute Retic Percent Retic Immature Retic Fraction Retic Hgb Content Haptoglobin Sodium Potassium Chloride Carbon Dioxide Anion Gap BUN Creatinine Estim Creat Clear Calc Estimated GFR Glucose POC Capillary Glucose 98 Hemoglobin A1c Calcium Phosphorus Iron TIBC % Saturation Transferrin Ferritin Direct Bilirubin Lactate Dehydrogenase Albumin Vitamin B12 Folate TSH (Reflex) Nasal MRSA (PCR) Stl Occult Blood (IFOB) DONNIE, Poly Interpret
[2024-10-16 11:42] LABS: Glucose Point of Care 137 mg/dl (65-105)
--- NOTE | 2024-10-16 12:53 | PM.IMPN ---
Progress Note: A&P Assessment and Plan (1) Cellulitis of arm, left: Code(s): L03.114 - Cellulitis of left upper limb Status: Acute Assessment and Plan: Left forearm cellulitis Started on ceftriaxone Ultrasound upper left extremity shows no evidence of DVT Ordered nasal MRSA Consider vancomycin if nasal MRSA is positive Monitor vitals Blood culture pending (2) Pneumonia: Qualifiers: Laterality: left Lung location: upper lobe of lung Pneumonia type: due to unspecified organism Qualified Code(s): J18.9 - Pneumonia, unspecified organism Code(s): J18.9 - Pneumonia, unspecified organism Status: Acute Assessment and Plan: Chest x-ray shows left upper lobe infiltrate suspicious for pneumonia Patient started on ceftriaxone and azithromycin Pending Legionella urine antigen Vital signs improved and stable RSV COVID flu negative monitor cultures MRSA negative encourage oral intake Ventilation perfusion scan pending (3) Chronic kidney disease: Qualifiers: Chronic kidney disease stage: stage 5 (GFR < 15), not on chronic dialysis Qualified Code(s): N18.5 - Chronic kidney disease, stage 5 Code(s): N18.9 - Chronic kidney disease, unspecified Status: Acute Assessment and Plan: -monitor closely during diuresis -Avoid nephrotoxic drugs. -Monitor antihypertensive drug therapy. -Avoid NSAIDs. -Routine CMP monitoring GFR. -Monitor electrolytes especially potassium. -Antibiotic doses depending on creatinine clearance. -Pharmacy does medications. 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 (6) Anemia: Code(s): D64.9 - Anemia, unspecified Status: Acute Assessment and Plan: Order H&H Order anemia panel Order FOBT Subjective Date/time seen: 10/16/24 12:53 Interval history: Patient started on Venofer. Continuing ceftriaxone and azithromycin for pneumonia. Patient has a left fore arm cellulitis. Nasal MRSA negative. Pending ventilation perfusion scan Review of Systems Review of Systems: 12 systems were reviewed with pertinent positives and negatives per HPI. Except as documented in the HPI, all other systems were reviewed and are negative. Exam Narrative: Weight 67.2 kg BMI 23.9 Const: Other: No acute distress, well-developed well-nourished, appears stated age HENMT: Other: Upper and lower dentures in place, mucous membranes are tacky, no oral pharyngeal erythema Eyes: Other: Pupils are equal and reactive, positive conjunctival pallor, no scleral icterus Neck: Other: No JVD, no lymphadenopathy Resp: Other: Clear to auscultation bilaterally anterior and posterior lung faust, no increased work of breathing Cardio: Other: Regular rate, regular rhythm, 2+ right radial pulse and right pedal pulse, 1+ left pedal pulse, 2/6 systolic murmur, GI: Other: Soft, nontender, nondistended, positive bowel sounds Skin: Other: Generalized pallor, non jaundice, multiple scars to bilateral dorsal forearms, erythema to the left forearm with 1+ edema, small bandage to the lateral dorsal forearm Neuro: Other: Alert oriented to person, place, month confused as to the year, speech is clear and fluent, patient is at least moderately hard of hearing, no localizing neurologic deficits noted during the course of conversation Extrem: Other: 5/5 salvage winder strength bilaterally, decreased fine sensation in feet bilaterally, normal straight leg raise strength, edema and erythema of the left forearm as discussed above, bruit over the left proximal forearm Psych: Other: Appropriate mood and affect, pleasantly confused and cooperative, fair judgment and insight Objective Data Vital Signs Vital Signs: Vital Signs - 24 hr 10/15/24 13:16 10/15/24 20:00 10/15/24 20:32 Temperature 99.0 F 97.7 F Pulse Rate 89 87 Respiratory Rate 16 16 Blood Pressure 150/87 H 153/77 H Pulse Oximetry 99 98 Oxygen Delivery Room Air Fraction of Inspired Oxygen 21 10/16/24 06:00 Temperature 97.4 F L Pulse Rate 84 Respiratory Rate 17 Blood Pressure 135/75 Pulse Oximetry 98 Oxygen Delivery Fraction of Inspired Oxygen Intake/Output Intake/Output: Intake & Output 10/13/24 10/14/24 10/15/24/08/25 23:59 23:59 23:59 23:59 Intake Total 50 1010 520 Output Total 2101 Balance 50 -1091 520 Meds/Results Medications: Active Medications Generic Name Dose Route Start Last Admin Trade Name Freq PRN Reason Stop Dose Admin Aspirin 81 mg 10/15/24 09:00 10/16/24 09:46 Aspirin 81 Mg Enteric Tablet PO 81 mg DAILY JITENDRA Administration Atorvastatin Calcium 40 mg 10/15/24 09:00 10/16/24 09:44 Atorvastatin 40 Mg Tablet PO 40 mg DAILY JITENDRA Administration Calcitriol 0.25 mcg 10/17/24 09:00 Calcitriol 0.25 Mcg Capsule PO [id number]@[id number] [facility] Calcium Carbonate 500 mg 10/15/24 09:00 10/16/24 09:46 Calcium/Vitamin D 500 Mg/5 Mcg (200 I.U.) Tablet PO 500 mg QAM [facility] Administration Clopidogrel Bisulfate 75 mg 10/15/24 09:00 10/16/24 09:43 Clopidogrel Bisulfate 75 Mg Tablet PO 75 mg DAILY JITENDRA Administration Dextrose 12.5 gm 10/14/24 20:33 10/15/24 07:26 Dextrose 50% 25 Gm/50 Ml Syringe IV PUSH 12.5 gm PRN PRN Administration Hypoglycemia Protocol Duloxetine HCl 30 mg 10/15/24 09:00 10/16/24 09:45 Duloxetine Hcl 30 Mg Capsule.Dr PO 30 mg BID JITENDRA Administration Epoetin Angel-epbx 10,000 units 10/15/24 09:00 10/15/24 13:24 Epoetin Angel-Epbx 10,000 Units/Ml Vial SUB-Q 10,000 units TUTHSA@09 [facility] Administration Glucagon 1 mg 10/14/24 20:33 Glucagon For Inj 1 Mg Vial IM PRN PRN Hypoglycemia Protocol Glucose 15 gm 10/14/24 20:33 Glucose Oral Gel 15 Gm Of Glucse In 37.5 Gm Tube PO PRN PRN Hypoglycemia Protocol Heparin Sodium (Porcine) 5,000 units 10/14/24 21:00 10/16/24 08:03 Heparin Sodium 5,000 Units/Ml Vial SUB-Q Not Given Q12HR [facility] Ceftriaxone Sodium 1 gm in 50 mls @ 100 mls/hr 10/15/24 17:00 10/15/24 18:10 Rocephin 1 Gm/Ns 50 Ml IVPB Infused Q24H JITENDRA Infusion Azithromycin 500 mg in 250 mls @ 250 mls/hr 10/15/24 18:00 10/15/24 18:40 Zithromax IVPB 250 mls/hr Q24H JITENDRA Administration Dextrose 1,000 mls @ 100 mls/hr 10/14/24 20:33 Dextrose 5% 1,000 Ml IVPB PRN PRN Hypoglycemia Protocol Insulin Aspart 2 - 5 units 10/15/24 08:00 10/16/24 11:34 Insulin Aspart (*Bkc) 100 Units/Ml SUB-Q Not Given TIDWM JITENDRA Protocol Insulin Glargine 5 units 10/15/24 21:00 10/15/24 21:40 Insulin Glargine (*Bkc) 100 Units/Ml SUB-Q 5 units HS JITENDRA Administration Letrozole 2.5 mg 10/15/24 09:00 10/16/24 09:44 Letrozole (*Chemo) 2.5 Mg Tablet PO 2.5 mg DAILY JITENDRA Administration Lisinopril 20 mg 10/15/24 09:00 10/16/24 09:45 Lisinopril 20 Mg Tablet PO 20 mg DAILY JITENDRA Administration Pantoprazole Sodium 40 mg 10/15/24 09:00 10/16/24 09:43 Pantoprazole 40 Mg Tablet PO 40 mg DAILY JITENDRA Administration Polyethylene Glycol 17 gm 10/15/24 12:30 10/16/24 08:00 Polyethylene Glycol 3350 17 Gm Powd.Pack PO Not Given QAM JITENDRA Sertraline HCl 50 mg 10/15/24 09:00 10/16/24 09:45 Sertraline Hcl 50 Mg Tablet PO 50 mg DAILY JITENDRA Administration Sodium Bicarbonate 325 mg 10/15/24 09:00 10/16/24 09:45 Sodium Bicarbonate Tab 325 Mg Tablet PO 325 mg BID JITENDRA Administration Trazodone HCl 100 mg 10/14/24 21:00 10/15/24 21:31 Trazodone Hcl 50 Mg Tablet PO 100 mg HS JITENDRA Administration Radiology Results: ITS Impressions Chest X-Ray 10/14/24 15:41 Impression: 1: Left upper lobe infiltrate, suspicious for pneumonia. Venous Doppler Study 10/14/24 15:45 IMPRESSION: 1. Patent left upper extremity veins. No evidence of deep venous thrombosis. Labs Labs: Laboratory Results - last 24 hr 10/15/24 10/15/24 10/15/24 12:55 12:58 16:43 WBC RBC Hgb 8.2 L Hct 25.7 L MCV MCH MCHC RDW Plt Count MPV Haptoglobin 234 H Sodium Potassium Chloride Carbon Dioxide Anion Gap BUN Creatinine Estim Creat Clear Calc Estimated GFR Glucose POC Capillary Glucose 128 H Calcium Phosphorus Iron 48 TIBC 315 % Saturation 15 L Ferritin 10.30 L Albumin TSH (Reflex) 1.630 Nasal MRSA (PCR) Not detected Stl Occult Blood (IFOB) 10/15/24 10/15/24 10/16/24 19:57 20:53 05:53 WBC 10.1 H RBC 3.15 L Hgb 9.1 L Hct 28.5 L MCV 90.5 MCH 28.9 MCHC 31.9 L RDW 17.2 H Plt Count 298 MPV 9.1 Haptoglobin Sodium 138 Potassium 4.7 Chloride 107 Carbon Dioxide 22 Anion Gap 9 BUN 73 H Creatinine 3.87 H Estim Creat Clear Calc 12 Estimated GFR 12 L Glucose 107 POC Capillary Glucose 193 H Calcium 8.2 L Phosphorus 5.6 H Iron TIBC % Saturation Ferritin Albumin 3.2 L TSH (Reflex) Nasal MRSA (PCR) Stl Occult Blood (IFOB) Positive H 10/16/24 10/16/24 08:12 11:32 WBC RBC Hgb Hct MCV MCH MCHC RDW Plt Count MPV Haptoglobin Sodium Potassium Chloride Carbon Dioxide Anion Gap BUN Creatinine Estim Creat Clear Calc Estimated GFR Glucose POC Capillary Glucose 98 137 H Calcium Phosphorus Iron TIBC % Saturation Ferritin Albumin TSH (Reflex) Nasal MRSA (PCR) Stl Occult Blood (IFOB) Quality VTE Prophylaxis VTE prophylaxis: pharmacologic ordered (Heparin 5000 units subQ q.12 hours) Hospitalist MIPS Advance Care Plan I have confirmed that the patient's Advanced Care Plan is present, code status is documented, or surrogate decision maker is listed in patient medical record.: Yes Medication Reconciliation I have utilized all available resources to obtain, update and review the patients current medications (includes all prescriptions, OTC, herbals, cannabis, and nutritional supplements).: Yes
[2024-10-16 14:00] VITALS: BP 140/67; PULSE 79; RESP 18; TEMP 36.4; O2SAT 99
[2024-10-16 16:54] LABS: Glucose Point of Care 104 mg/dl (65-105)
[2024-10-16] MEDS: AZITHROMYCIN 500 MG/NS 250 ML 500 MG/250 ML BAG 250 MG IVPB (18:25)
[2024-10-16 20:20] LABS: Glucose Point of Care 233 mg/dl (65-105)
[2024-10-16 20:56] VITALS: PULSE 89; RESP 20; O2SAT 97
[2024-10-16] MEDS: INSULIN GLARGINE (*BKC) 100 UNITS/ML SUB-Q (20:56)
[2024-10-16] MEDS: HEPARIN SODIUM 5,000 UNITS/ML VIAL 5000 UNITS SUB-Q (20:57)
[2024-10-16] MEDS: traZODone HCL 50 MG TABLET 100 MG PO (20:57)
[2024-10-16 21:01] VITALS: BP 128/65; PULSE 89; RESP 20; TEMP 36.4; O2SAT 97
[2024-10-16 21:30] VITALS: O2SAT 97
[2024-10-17 05:09] VITALS: BP 114/60; PULSE 75; RESP 18; TEMP 36.4; O2SAT 97
[2024-10-17 06:24] LABS: Hematocrit 25.5 % (37.0-47.0); Hemoglobin 7.9 g/dL (12.0-15.0); Mean Corpuscular Hemoglobin 28.6 pg (26-34); Mean Corpuscular Volume 92.4 fl (80-100); Mean Platelet Volume 9.3 fl (7.4-10.4); Platelet Count Result 253 k/mm3 (150-375); Red Blood Count 2.76 M/mm3 (4.2-5.4); Red Cell Distribution Width 17.4 % (11.5-14.5); White Blood Count 6.1 K/mm3 (4.5-10.0)
[2024-10-17 06:43] LABS: Alanine Aminotransferase 22 U/L (6-35); Alkaline Phosphatase 103 U/L (38-126); Anion Gap 8 mmol/L (4-12); Aspartate Amino Transferase 32 U/L (14-36); Bilirubin,Total 0.2 mg/dL (0.2-1.3); Blood Urea Nitrogen 67 mg/dL (7-17); Calcium 8.5 mg/dL (8.4-10.2); Carbon Dioxide 25 mmol/L (22-30); Chloride 107 mmol/L (98-107); Estimated CRCL calculation 12 ml/min; Estimated Glomerular Filt Rate 11; Glucose 94 mg/dL (65-110); Potassium 4.7 mmol/L (3.4-5.0); Sodium 140 mmol/L (137-145)
[2024-10-17 07:44] LABS: Glucose Point of Care 89 mg/dl (65-105)
--- NOTE | 2024-10-17 08:49 | PM.IMPN ---
Progress Note: A&P Assessment and Plan (1) Cellulitis of arm, left: Code(s): L03.114 - Cellulitis of left upper limb Status: Acute Assessment and Plan: Left forearm cellulitis Started on ceftriaxone Ultrasound upper left extremity shows no evidence of DVT Ordered nasal MRSA Consider vancomycin if nasal MRSA is positive Monitor vitals Blood culture pending (2) Pneumonia: Qualifiers: Laterality: left Lung location: upper lobe of lung Pneumonia type: due to unspecified organism Qualified Code(s): J18.9 - Pneumonia, unspecified organism Code(s): J18.9 - Pneumonia, unspecified organism Status: Acute Assessment and Plan: Chest x-ray shows left upper lobe infiltrate suspicious for pneumonia Patient started on ceftriaxone and azithromycin Pending Legionella urine antigen Vital signs improved and stable RSV COVID flu negative monitor cultures MRSA negative encourage oral intake Ventilation perfusion scan pending (3) Chronic kidney disease: Qualifiers: Chronic kidney disease stage: stage 5 (GFR < 15), not on chronic dialysis Qualified Code(s): N18.5 - Chronic kidney disease, stage 5 Code(s): N18.9 - Chronic kidney disease, unspecified Status: Acute Assessment and Plan: -monitor closely during diuresis -Avoid nephrotoxic drugs. -Monitor antihypertensive drug therapy. -Avoid NSAIDs. -Routine CMP monitoring GFR. -Monitor electrolytes especially potassium. -Antibiotic doses depending on creatinine clearance. -Pharmacy does medications. -Cr 3.89 appears at baseline -consulted nephrology (4) Diabetes mellitus: Qualifiers: Diabetes mellitus complication detail: without coma Diabetes mellitus complication status: with hypoglycemia Diabetes mellitus terminologist insulin use: with custodial use Diabetes mellitus type: type 2 Qualified Code(s): E11.649 - Type 2 diabetes mellitus with hypoglycemia without coma; Z79.4 - USP (current) use of insulin Code(s): E11.9 - Type 2 diabetes mellitus without complications Status: Acute Assessment and Plan: Order HbA1c Lantus 10 units HS SSI Hypoglycemia protocol (5) Memory impairment of gradual onset: Code(s): R41.3 - Other amnesia Status: Acute Assessment and Plan: neuro cognitive testing as outpatient. (6) Anemia: Code(s): D64.9 - Anemia, unspecified Status: Acute Assessment and Plan: Order H&H Reviewed anemia panel Iron saturation low FOBT positive GI consult Subjective Date/time seen: 10/17/24 08:49 Interval history: Patient c/o left arm. Will cont IV antibiotics.Patient will undergo a ventilation perfusion scan today. Her hemoglobin is dropped from 9.1-7.9. Patient was started on Venofer by radha. Patient has a left arm cellulitis none currently on ceftriaxone. Patient has been followed by Nephrology due to CKD. Patient had fistula placement a year ago but still not been used. Review of Systems Review of Systems: 12 systems were reviewed with pertinent positives and negatives per HPI. Except as documented in the HPI, all other systems were reviewed and are negative. Exam Narrative: Weight 67.2 kg BMI 23.9 Const: Other: No acute distress, well-developed well-nourished, appears stated age HENMT: Other: Upper and lower dentures in place, mucous membranes are tacky, no oral pharyngeal erythema Eyes: Other: Pupils are equal and reactive, positive conjunctival pallor, no scleral icterus Neck: Other: No JVD, no lymphadenopathy Resp: Other: Clear to auscultation bilaterally anterior and posterior lung faust, no increased work of breathing Cardio: Other: Regular rate, regular rhythm, 2+ right radial pulse and right pedal pulse, 1+ left pedal pulse, 2/6 systolic murmur, GI: Other: Soft, nontender, nondistended, positive bowel sounds Skin: Other: Generalized pallor, non jaundice, multiple scars to bilateral dorsal forearms, erythema to the left forearm with 1+ edema, small bandage to the lateral dorsal forearm Neuro: Other: Alert oriented to person, place, month confused as to the year, speech is clear and fluent, patient is at least moderately hard of hearing, no localizing neurologic deficits noted during the course of conversation Extrem: Other: 5/5 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 maintenance 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, decreased fine sensation in feet bilaterally, normal straight leg raise strength, edema and erythema of the left forearm as discussed above, bruit over the left proximal forearm Psych: Other: Appropriate mood and affect, pleasantly confused and cooperative, fair judgment and insight Objective Data Vital Signs Vital Signs: Vital Signs - 24 hr 10/16/24 14:00 10/16/24 20:56 10/16/24 21:01 Temperature 97.6 F 97.5 F L Pulse Rate 79 89 89 Respiratory Rate 18 20 20 Blood Pressure 140/67 128/65 Pulse Oximetry 99 97 97 Oxygen Delivery Room Air Fraction of Inspired Oxygen 25 21:30 10/17/24 05:09 Temperature 97.5 F L Pulse Rate 75 Respiratory Rate 18 Blood Pressure 114/60 Pulse Oximetry 97 97 Oxygen Delivery Room Air Fraction of Inspired Oxygen Intake/Output Intake/Output: Intake & Output 10/14/24 10/15/24 10/16/24 10/17/24 23:59 23:59 23:59 23:59 Intake Total 50 1260 1100 250 Output Total 2101 Balance 50 -841 1100 250 Meds/Results Medications: Active Medications Generic Name Dose Route Start Last Admin Trade Name Freq PRN Reason Stop Dose Admin Aspirin 81 mg 10/15/24 09:00 10/16/24 09:46 Aspirin 81 Mg Enteric Tablet PO 81 mg DAILY [facility] Administration Atorvastatin Calcium 40 mg 10/15/24 09:00 10/16/24 09:44 Atorvastatin 40 Mg Tablet PO 40 mg DAILY JITENDRA Administration Calcitriol 0.25 mcg 10/17/24 09:00 Calcitriol 0.25 Mcg Capsule PO MoWeFr@0900 [facility] Calcium Carbonate 500 mg 10/15/24 09:00 10/16/24 09:46 Calcium/Vitamin D 500 Mg/5 Mcg (200 I.U.) Tablet PO 500 mg QAM [facility] Administration Clopidogrel Bisulfate 75 mg 10/15/24 09:00 10/16/24 09:43 Clopidogrel Bisulfate 75 Mg Tablet PO 75 mg DAILY JITENDRA Administration Dextrose 12.5 gm 10/14/24 20:33 10/15/24 07:26 Dextrose 50% 25 Gm/50 Ml Syringe IV PUSH 12.5 gm PRN PRN Administration Hypoglycemia Protocol Duloxetine HCl 30 mg 10/15/24 09:00 10/16/24 17:51 Duloxetine Hcl 30 Mg Capsule.Dr PO 30 mg BID [facility] Administration Epoetin Angel-epbx 10,000 units 10/15/24 09:00 10/15/24 13:24 Epoetin Angel-Epbx 10,000 Units/Ml Vial SUB-Q 10,000 units TUTHSA@09 [facility] Administration Glucagon 1 mg 10/14/24 20:33 Glucagon For Inj 1 Mg Vial IM PRN PRN Hypoglycemia Protocol Glucose 15 gm 10/14/24 20:33 Glucose Oral Gel 15 Gm Of Glucse In 37.5 Gm Tube PO PRN PRN Hypoglycemia Protocol Heparin Sodium (Porcine) 5,000 units 10/14/24 21:00 10/16/24 20:57 Heparin Sodium 5,000 Units/Ml Vial SUB-Q 5,000 units Q12HR JITENDRA Administration Ceftriaxone Sodium 1 gm in 50 mls @ 100 mls/hr 10/15/24 17:00 10/16/24 18:20 Rocephin 1 Gm/Ns 50 Ml IVPB Infused Q24H JITENDRA Infusion Azithromycin 500 mg in 250 mls @ 250 mls/hr 10/15/24 18:00 10/16/24 19:25 Zithromax IVPB Infused Q24H JITENDRA Infusion Dextrose 1,000 mls @ 100 mls/hr 10/14/24 20:33 Dextrose 5% 1,000 Ml IVPB PRN PRN Hypoglycemia Protocol Insulin Aspart 2 - 5 units 10/15/24 08:00 10/16/24 17:47 Insulin Aspart (*Bkc) 100 Units/Ml SUB-Q Not Given TIDWM JITENDRA Protocol Insulin Glargine 5 units 10/15/24 21:00 10/16/24 20:56 Insulin Glargine (*Bkc) 100 Units/Ml SUB-Q 5 units HS JITENDRA Administration Letrozole 2.5 mg 10/15/24 09:00 10/16/24 09:44 Letrozole (*Chemo) 2.5 Mg Tablet PO 2.5 mg DAILY JITENDRA Administration Lisinopril 20 mg 10/15/24 09:00 10/16/24 09:45 Lisinopril 20 Mg Tablet PO 20 mg DAILY JITENDRA Administration Pantoprazole Sodium 40 mg 10/15/24 09:00 10/16/24 09:43 Pantoprazole 40 Mg Tablet PO 40 mg DAILY JITENDRA Administration Polyethylene Glycol 17 gm 10/15/24 12:30 10/16/24 08:00 Polyethylene Glycol 3350 17 Gm Powd.Pack PO Not Given QAM JITENDRA Sertraline HCl 50 mg 10/15/24 09:00 10/16/24 09:45 Sertraline Hcl 50 Mg Tablet PO 50 mg DAILY JITENDRA Administration Sodium Bicarbonate 325 mg 10/15/24 09:00 10/16/24 17:51 Sodium Bicarbonate Tab 325 Mg Tablet PO 325 mg BID JITENDRA Administration Trazodone HCl 100 mg 10/14/24 21:00 10/16/24 20:57 Trazodone Hcl 50 Mg Tablet PO 100 mg HS JITENDRA Administration Radiology Results: ITS Impressions Venous Doppler Study 10/14/24 15:45 IMPRESSION: 1. Patent left upper extremity veins. No evidence of deep venous thrombosis. Labs Labs: Laboratory Results - last 24 hr 10/16/24 10/16/24 10/16/24 11:32 16:49 19:21 WBC RBC Hgb Hct MCV MCH MCHC RDW Plt Count MPV Sodium Potassium Chloride Carbon Dioxide Anion Gap BUN Creatinine Estim Creat Clear Calc Estimated GFR Glucose POC Capillary Glucose 137 H 104 233 H Calcium Total Bilirubin AST ALT Alkaline Phosphatase Total Protein Albumin 10/17/24 10/17/24 06:04 07:37 WBC 6.1 RBC 2.76 L Hgb 7.9 L Hct 25.5 L MCV 92.4 MCH 28.6 MCHC 31.0 L RDW 17.4 H Plt Count 253 MPV 9.3 Sodium 140 Potassium 4.7 Chloride 107 Carbon Dioxide 25 Anion Gap 8 BUN 67 H Creatinine 4.13 H Estim Creat Clear Calc 12 Estimated GFR 11 L Glucose 94 POC Capillary Glucose 89 Calcium 8.5 Total Bilirubin 0.2 AST 32 ALT 22 Alkaline Phosphatase 103 Total Protein 6.0 L Albumin 3.0 L Quality VTE Prophylaxis VTE prophylaxis: pharmacologic ordered (Heparin 5000 units subQ q.12 hours) Hospitalist MIPS Advance Care Plan I have confirmed that the patient's Advanced Care Plan is present, code status is documented, or surrogate decision maker is listed in patient medical record.: Yes Medication Reconciliation I have utilized all available resources to obtain, update and review the patients current medications (includes all prescriptions, OTC, herbals, cannabis, and nutritional supplements).: Yes
--- NOTE | 2024-10-17 09:13 | PM.PNNEP ---
Progress Note: A&P Assessment and Plan (1) Stage 5 chronic kidney disease: Code(s): N18.5 - Chronic kidney disease, stage 5 Status: Acute Assessment and Plan: baseline creatinine has been running around 3.2 - 4.0mg/dl since October 2022 this cause her GFR to fluctuate from 12 - 15cc/min thought to be secondary to DM, HTN, vascular disease and age follows with Dr. 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 at this time (2) Cellulitis of arm, left: Code(s): L03.114 - Cellulitis of left upper limb Status: Acute Assessment and Plan: as noted on admission luckily, does not appear to have affected the her AVF follow culture data on antibiotics (3) Pulmonary infiltrate: Code(s): R91.8 - Other nonspecific abnormal finding of lung field Status: Acute Assessment and Plan: as noted by recent CXR no significant respiratory symptoms no evidence of hypoxia cultures noted on antibiotics (4) Anemia: Code(s): D64.9 - Anemia, unspecified Status: Acute Assessment and Plan: presumably due to advanced CKD and acute illness evidence of iron deficiency as well by admission anemia studies s/p IV venofer Epogen while hospitalized follow trend of H/H (5) Essential hypertension: Code(s): I10 - Essential (primary) hypertension Status: Chronic Assessment and Plan: reasonable control follow trend of hemodynamics (6) Diabetes mellitus: Qualifiers: Diabetes mellitus type: type 2 Diabetes mellitus custodial insulin use: with custodial use Diabetes mellitus complication status: with hypoglycemia Diabetes mellitus complication detail: without coma Qualified Code(s): E11.649 - Type 2 diabetes mellitus with hypoglycemia without coma; Z79.4 - 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 Subjective Date/time seen: 10/17/24 09:13 Interval history: Follow-up for chronic kidney disease. Chart reviewed -- assuming care from Dr. Starks; still with on/off left arm pain but no worse since admission -- tolerating IV antibiotic therapy; despite fluctuating renal function/creatinine, continues to make reasonable urine output; no apparent distress voiced at the time of my visit. Exam Narrative: General: WD/WN female in NAD Heart: normal S1 and S2; no rub Lungs: clear anteriorly Abdomen: soft, nontender, nondistended, positive bowel sounds Extremities: no cyanosis or clubbing; no edema Skin: warm and dry Objective Data Vital Signs Vital Signs: Vital Signs Temp Pulse Resp BP Pulse Ox O2 Del Method FiO2 10/17/24 09:05 98.2 F 81 18 149/93 H 100 Room Air 10/17/24 05:09 97.5 F L 75 18 114/60 97 10/16/24 21:30 97 Room Air 10/16/24 21:01 97.5 F L 89 20 128/65 97 10/16/24 20:56 89 20 97 Room Air 21 Intake/Output Intake/Output: Intake & Output 10/14/24 10/15/24 10/16/24 10/17/24 23:59 23:59 23:59 23:59 Intake Total 50 1260 1100 810 Output Total 2101 Balance 50 -841 1100 810 Meds/Results Medications: Active Medications Generic Name Dose Route Start Last Admin Trade Name Freq PRN Reason Stop Dose Admin Aspirin 81 mg 10/15/24 09:00 10/17/24 10:19 Aspirin 81 Mg Enteric Tablet PO 81 mg DAILY JITENDRA Administration Atorvastatin Calcium 40 mg 10/15/24 09:00 10/17/24 10:19 Atorvastatin 40 Mg Tablet PO 40 mg DAILY JITENDRA Administration Calcitriol 0.25 mcg 10/17/24 09:00 10/17/24 10:23 Calcitriol 0.25 Mcg Capsule PO 0.25 mcg [id number]@0900 JITENDRA Administration Calcium Carbonate 500 mg 10/15/24 09:00 10/17/24 10:18 Calcium/Vitamin D 500 Mg/5 Mcg (200 I.U.) Tablet PO 500 mg QAM JITENDRA Administration Clopidogrel Bisulfate 75 mg 10/15/24 09:00 10/17/24 10:18 Clopidogrel Bisulfate 75 Mg Tablet PO 75 mg DAILY JITENDRA Administration Dextrose 12.5 gm 10/14/24 20:33 10/15/24 07:26 Dextrose 50% 25 Gm/50 Ml Syringe IV PUSH 12.5 gm PRN PRN Administration Hypoglycemia Protocol Duloxetine HCl 30 mg 10/15/24 09:00 10/17/24 17:19 Duloxetine Hcl 30 Mg Capsule.Dr PO 30 mg BID JITENDRA Administration Epoetin Angel-epbx 10,000 units 10/15/24 09:00 10/15/24 13:24 Epoetin Angel-Epbx 10,000 Units/Ml Vial SUB-Q 10,000 units TUTHSA@09 JITENDRA Administration Glucagon 1 mg 10/14/24 20:33 Glucagon For Inj 1 Mg Vial IM PRN PRN Hypoglycemia Protocol Glucose 15 gm 10/14/24 20:33 Glucose Oral Gel 15 Gm Of Glucse In 37.5 Gm Tube PO PRN PRN Hypoglycemia Protocol Heparin Sodium (Porcine) 5,000 units 10/14/24 21:00 10/17/24 10:18 Heparin Sodium 5,000 Units/Ml Vial SUB-Q 5,000 units Q12HR JITENDRA Administration Ceftriaxone Sodium 1 gm in 50 mls @ 100 mls/hr 10/15/24 17:00 10/17/24 17:19 Rocephin 1 Gm/Ns 50 Ml IVPB 100 mls/hr Q24H JITENDRA Administration Azithromycin 500 mg in 250 mls @ 250 mls/hr 10/15/24 18:00 10/17/24 17:50 Zithromax IVPB 250 mls/hr Q24H JITENDRA Administration Dextrose 1,000 mls @ 100 mls/hr 10/14/24 20:33 Dextrose 5% 1,000 Ml IVPB PRN PRN Hypoglycemia Protocol Insulin Aspart 2 - 5 units 10/15/24 08:00 10/17/24 17:18 Insulin Aspart (*Bkc) 100 Units/Ml SUB-Q Not Given TIDWM [facility] Protocol Insulin Glargine 5 units 10/15/24 21:00 10/16/24 20:56 Insulin Glargine (*Bkc) 100 Units/Ml SUB-Q 5 units HS JITENDRA Administration Letrozole 2.5 mg 10/15/24 09:00 10/17/24 10:23 Letrozole (*Chemo) 2.5 Mg Tablet PO 2.5 mg DAILY JITENDRA Administration Lisinopril 20 mg 10/15/24 09:00 10/17/24 10:19 Lisinopril 20 Mg Tablet PO 20 mg DAILY JITENDRA Administration Pantoprazole Sodium 40 mg 10/15/24 09:00 10/17/24 10:18 Pantoprazole 40 Mg Tablet PO 40 mg DAILY JITENDRA Administration Polyethylene Glycol 17 gm 10/15/24 12:30 10/17/24 10:18 Polyethylene Glycol 3350 17 Gm Powd.Pack PO 17 gm QAM JITENDRA Administration Sertraline HCl 50 mg 10/15/24 09:00 10/17/24 10:19 Sertraline Hcl 50 Mg Tablet PO 50 mg DAILY JITENDRA Administration Sodium Bicarbonate 325 mg 10/15/24 09:00 10/17/24 17:19 Sodium Bicarbonate Tab 325 Mg Tablet PO 325 mg BID JITENDRA Administration Trazodone HCl 100 mg 10/14/24 21:00 10/16/24 20:57 Trazodone Hcl 50 Mg Tablet PO 100 mg HS JITENDRA Administration Radiology Results: ITS Impressions Venous Doppler Study 10/14/24 15:45 IMPRESSION: 1. Patent left upper extremity veins. No evidence of deep venous thrombosis. Chest X-Ray 10/17/24 09:00 Impression: Normal chest. Pulmonary Perfusion Imaging 10/17/24 14:23 IMPRESSION: 1. Normal study. Very low probability for pulmonary embolism. Labs Labs: Laboratory Tests 10/17/24 06:04 10/17/24 06:04 Calcium 8.5 Total Bilirubin 0.2 AST 32 ALT 22 Alkaline Phosphatase 103 Total Protein 6.0 L Albumin 3.0 L
[2024-10-17] MEDS: CLOPIDOGREL BISULFATE 75 MG TABLET PO (10:18)
[2024-10-17] MEDS: PANTOPRAZOLE 40 MG TABLET PO (10:18)
[2024-10-17] MEDS: CALCIUM/VITAMIN D 500 MG/5 MCG (200 I.U.) TABLET PO (10:18)
[2024-10-17] MEDS: HEPARIN SODIUM 5,000 UNITS/ML VIAL 5000 UNITS SUB-Q ×2 (10:18→20:29)
[2024-10-17] MEDS: polyethylene glycoL 3350 17 GM POWD.PACK PO (10:18)
[2024-10-17] MEDS: SODIUM BICARBONATE TAB 325 MG TABLET PO ×2 (10:18→17:19)
[2024-10-17] MEDS: ASPIRIN 81 MG ENTERIC TABLET PO (10:19)
[2024-10-17] MEDS: SERTRALINE HCL 50 MG TABLET PO (10:19)
[2024-10-17] MEDS: ATORVASTATIN 40 MG TABLET PO (10:19)
[2024-10-17] MEDS: DULoxetine HCL 30 MG CAPSULE.DR PO ×2 (10:19→17:19)
[2024-10-17] MEDS: lisinopriL 20 MG TABLET PO (10:19)
[2024-10-17] MEDS: LETROZOLE (*CHEMO) 2.5 MG TABLET PO (10:23)
[2024-10-17] MEDS: calcitrioL 0.25 MCG CAPSULE PO (10:23)
[2024-10-17 11:35] LABS: Glucose Point of Care 116 mg/dl (65-105)
--- NOTE | 2024-10-17 12:09 | WPDGICN ---
Assessment and Plan Assessment and plan (1) History of colon polyps: Code(s): Z86.0100 - Personal history of colon polyps, unspecified Status: Acute (2) Chronic iron deficiency anemia: Code(s): D50.9 - Iron deficiency anemia, unspecified Status: Acute (3) Positive occult stool blood test: Code(s): R19.5 - Other fecal abnormalities Status: Acute (4) Chronic kidney disease: Qualifiers: Chronic kidney disease stage: stage 5 (GFR < 15), not on chronic dialysis Qualified Code(s): N18.5 - Chronic kidney disease, stage 5 Code(s): N18.9 - Chronic kidney disease, unspecified Status: Acute (5) Cellulitis of arm, left: Code(s): L03.114 - Cellulitis of left upper limb Status: Acute Plan 1. Chronic Anemia/ROMY/Positive Occult Stool: She has no visible evidence of active GI bleeding. She had her Last colonoscopy 08/2024 at [facility] with Dr. Brooks showing few benign polyps per her son. Never has had an EGD. She has been receiving IV iron infusions administered by her assistant to the ceo outpatient as well. She was given IV Venofer during this admission. She has chronic kidney disease stage 5 with an AV fistula in left arm. Due to anemia dropping from 9.5-7.9, Fecal occult blood test was positive on 10/15/2024. Labs show hemoglobin trending down from 9.5 on 10/14/2024 to 7.9 on 10/17/2024. It looks like looking back from labs obtained by her PCP her hemoglobin in June of 2024 was 8.5. She is on Plavix currently. Her anemia is chronic and likely multifactorial due to chronic kidney disease, she has an elevated haptoglobin as well. Nephrology is following her and started her on Epogen. Due to her not having no obvious GI bleeding at this time will defer any GI interventions at this time. - Monitor H&H - Monitor for signs of active GI bleeding. - F/u outpatient, consider EGD if needed. - Thank you very much for allowing me to share in the care of this very nice patient. This report may have been done utilizing a voice recognition system. Attempts have been made to correct errors. However, there may be uncorrected grammatical, spelling, and recognition errors present. GI Consult Note Consult date/time: 10/17/24 1130 Reason for consult: positive occult stool and anemia HPI: This is a pleasant 68-year-old female with a past medical history of memory loss, chronic anemia, breast cancer s/p mastectomy and radiation, GERD, hyperlipidemia, hypertension, peripheral neuropathy, total hysterectomy, history of CVA, chronic kidney disease stage 5, AV fistula left arm (not on dialysis yet), essential hypertension, and type 2 diabetes. She presented to the ER room requesting an ultrasound of her left arm due to redness and swelling. GI consulted for anemia and low ferritin. She is up in bed, eating lunch. Her son is present today with her. She had a venous Doppler for left upper extremity with no evidence of DVT and was diagnosed with pneumonia of left upper lobe, getting treated with antibiotics. She is not on dialysis at this time. She has been getting IV iron infusions administered by her assistant to the ceo, outpatient per her son. She had a colonoscopy in August 2024 at [facility] with Dr. Ching and had a few polyps that were benign per her son. She has never had EGD, or if she has its been a while. She denies GERD or atypical GERD symptoms. She denies any dysphagia, odynophagia, post-prandial abdominal pain, hematemesis, nausea, or vomiting. Denies any constipation, diarrhea, melena. She is on Plavix and Pantoprazole. ENDOSCOPY HISTORY: EGD: No previous EGD available COLONOSCOPY: 08/2024 (Dr. Ching) Few benign polyps LABS AND STOOL STUDIES: 10/17/2024 hemoglobin 7.9, hematocrit 25.5, MCV 92, Na 140, K 4.7, BUN 67, creatinine 4.13, total bilirubin 0.2, AST 32, ALT 22, alkaline phosphatase 103 10/16/2024 hemoglobin 9.1, hematocrit 28.5, MCV 90.5 10/15/2024 hemoglobin 7.4, hematocrit 23, MCV 89, haptoglobin 234, TSH 1.6, ferritin 10.3, iron saturation 15%, TIBC 315, iron 48, B12 275, folate 11.3, fecal occult blood positive 10/14/2024 hemoglobin 9.5, hematocrit 29.6, MCV 88.9, platelets 361, INR 1 Reviewed old H&H obtained from PCP: 09/12 HGB 9.4, hematocrit 28.6 08/08 HGB 9.1, hematocrit 28.7, 07/06 HGB 8.5, hematocrit 27 Review of Systems Constitutional: Constitutional: Denies headache(s) and Denies weakness Eyes: Eyes: Denies blurry vision ENT: Reports Normal hearing present, Denies headache(s) and Denies neck pain Cardiovascular: Cardiovascular: Denies chest pain Respiratory: Respiratory: Reports dyspnea Gastrointestinal: Gastrointestinal: Reports as per HPI Musculoskeletal: Musculoskeletal: Reports back pain Comments: reports upper back pain Neurologic: Reports Normal hearing present, Denies headache(s) and Denies weakness [facility] Past Medical History Medical History (Updated 10/17/24 @ 12:20 by Veronica Flores APRN) Abnormal colonoscopy history of colon polyps August 2024 Breast cancer GERD (gastroesophageal reflux disease) Hyperlipidemia Essential hypertension CVA (cerebral vascular accident) Chronic kidney disease Diabetic peripheral neuropathy Diabetes mellitus Surgical History Surgical History History of cardiac catheterization Status post creation of arteriovenous fistula History of total abdominal hysterectomy and bilateral salpingo-oophorectomy Family History Family History Father Lung cancer Grandparent Diabetes mellitus Social History Social History Social History: Code status: Full code (per EMR) Surrogate decision maker: Alvaro Galaviz (son) Smoking packs per day: 2 Smoking cigarettes per day: 40.0 Smoking status: Former smoker Tobacco type: cigarettes Alcohol intake: never Substance use: never Do You Feel Safe in your Home?: Yes Lack of Transportation: No Lack of Food: Never True Current Housing: I Have Housing Concerned About Future Housing: No Difficulty Paying Gas/Electric Bills: No Difficulty Paying for Meds: YES Currently Unemployed: No Education: High School Diploma/GED Difficulty w/ Childcare or Family Care: No Additional living arrangements comments: She has lived with her son since approximately 2019. She ambulates with a walker. 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 She raised 3 sons. Spiritual care concerns: Yes Meds Home Medications and Allergies Home Medications ?Medication ?Instructions ?Recorded ?Confirmed ?Type aspirin 81 mg tablet,delayed 81 mg PO DAILY 09/15/22 10/14/24 History release atorvastatin 40 mg tablet 40 mg PO DAILY 09/15/22 10/14/24 History clopidogrel 75 mg tablet 75 mg PO DAILY 09/15/22 10/14/24 History duloxetine 30 mg capsule,delayed 30 mg PO BID 09/15/22 10/14/24 History release letrozole 2.5 mg tablet 2.5 mg PO DAILY 09/15/22 10/14/24 History lisinopril 10 mg tablet 20 mg PO DAILY 09/15/22 10/14/24 History sertraline 50 mg tablet (Zoloft) 50 mg PO DAILY 09/15/22 10/14/24 History trazodone 100 mg tablet 100 mg PO HS 09/15/22 10/14/24 History calcitriol 0.25 mcg capsule 0.25 mcg PO .MWF 10/14/24 10/14/24 History calcium carb-ergocalciferol (vit 1 tablet PO DAILY 10/14/24 10/14/24 History D2) 600 mg calcium-200 unit tablet insulin glargine 100 unit/mL (3 18 unit subcut QPM 10/14/24 10/14/24 History mL) subcutaneous pen (Lantus Solostar U-100 Insulin) pantoprazole 40 mg tablet,delayed 40 mg PO DAILY 10/14/24 10/14/24 History release pen needle, diabetic 31 gauge x 10/14/24 10/14/24 History 5/16 (Sure Comfort Pen Needle) Allergies Allergy/AdvReac Type Severity Reaction Status Date / Time No Known Allergies Allergy Verified 10/14/24 13:15 Vital Signs Vital Signs - 24 hr 10/16/24 14:00 10/16/24 20:56 10/16/24 21:01 Temperature 97.6 F 97.5 F L Pulse Rate 79 89 89 Respiratory Rate 18 20 20 Blood Pressure 140/67 128/65 Pulse Oximetry 99 97 97 Oxygen Delivery Room Air Fraction of Inspired Oxygen 21 10/16/24 21:30 10/17/24 05:09 Temperature 97.5 F L Pulse Rate 75 Respiratory Rate 18 Blood Pressure 114/60 Pulse Oximetry 97 97 Oxygen Delivery Room Air Fraction of Inspired Oxygen Exam Const: General: comfortable and no acute distress HENMT: Face/Nose/Sinus: Normal nares present Eyes: General: appearance normal, both eyes and all related structures Neck: Neck: no JVD Resp: Auscultation: clear to auscultation bilaterally Cardio: Rate: regular rate Rhythm: regular rhythm GI: Inspection: non-distended Skin: General skin exam: normal color Neuro: General: gait normal Speech: normal speech Extrem: General: normal to inspection Psych: Mental Status: mental status grossly normal Results Labs 10/17/24 06:04 10/17/24 06:04 Labs: Short CBC 10/17/24 Range/Units 06:04 WBC 6.1 (4.5-10.0) K/mm3 Hgb 7.9 L (12.0-15.0) g/dL Hct 25.5 L (37.0-47.0) % Plt Count 253 (150-375) k/mm3 BMP 10/17/24 06:04 Sodium 140 Potassium 4.7 Chloride 107 Carbon Dioxide 25 BUN 67 H Creatinine 4.13 H Glucose 94 Calcium 8.5 Liver Function 10/17/24 Range/Units 06:04 Total Bilirubin 0.2 (0.2-1.3) mg/dL AST 32 (14-36) U/L ALT 22 (6-35) U/L Alkaline Phosphatase 103 (38-126) U/L Albumin 3.0 L (3.5-5.1) g/dL
[2024-10-17 13:19] LABS: Protein, Total 6.9 g/dL (6.1-8.1)
[2024-10-17 13:55] VITALS: BP 149/93; PULSE 81; RESP 18; TEMP 36.8; O2SAT 100
[2024-10-17 16:17] LABS: Glucose Point of Care 149 mg/dl (65-105)
[2024-10-17] MEDS: AZITHROMYCIN 500 MG/NS 250 ML 500 MG/250 ML BAG 250 MG IVPB (17:50)
[2024-10-17 20:06] LABS: Glucose Point of Care 131 mg/dl (65-105)
[2024-10-17 20:12] VITALS: PULSE 87; RESP 20; O2SAT 97
[2024-10-17] MEDS: INSULIN GLARGINE (*BKC) 100 UNITS/ML SUB-Q (20:29)
[2024-10-17] MEDS: traZODone HCL 50 MG TABLET 100 MG PO (20:29)
[2024-10-17 20:44] LABS: Albumin 3.4 g/dL (3.8-4.8); Alpha 1 Globulin 0.3 g/dL (0.2-0.3); Alpha 2 Globulin 1.2 g/dL (0.5-0.9); Beta 1 Globulin 0.5 g/dL (0.4-0.6); Gamma Globulin 1.2 g/dL (0.8-1.7)
[2024-10-17 21:08] VITALS: BP 178/76; PULSE 79; RESP 20; TEMP 36.2; O2SAT 99
[2024-10-18 05:08] VITALS: BP 148/67; PULSE 81; RESP 18; TEMP 36.3; O2SAT 100
[2024-10-18 06:05] LABS: Hematocrit 23.4 % (37.0-47.0); Hemoglobin 7.5 g/dL (12.0-15.0); Mean Corpuscular HGB Conc 32.1 g/dl (32-36); Mean Corpuscular Hemoglobin 28.6 pg (26-34); Mean Corpuscular Volume 89.3 fl (80-100); Mean Platelet Volume 9.2 fl (7.4-10.4); Platelet Count Result 248 k/mm3 (150-375); Red Blood Count 2.62 M/mm3 (4.2-5.4); Red Cell Distribution Width 16.8 % (11.5-14.5); White Blood Count 4.9 K/mm3 (4.5-10.0)
[2024-10-18 06:29] LABS: Alanine Aminotransferase 22 U/L (6-35); Alkaline Phosphatase 101 U/L (38-126); Anion Gap 10 mmol/L (4-12); Aspartate Amino Transferase 30 U/L (14-36); Bilirubin,Total 0.2 mg/dL (0.2-1.3); Blood Urea Nitrogen 68 mg/dL (7-17); Calcium 8.2 mg/dL (8.4-10.2); Carbon Dioxide 19 mmol/L (22-30); Chloride 107 mmol/L (98-107); Estimated CRCL calculation 13 ml/min; Estimated Glomerular Filt Rate 12; Glucose 79 mg/dL (65-110); Potassium 4.2 mmol/L (3.4-5.0); Sodium 136 mmol/L (137-145)
[2024-10-18 07:47] LABS: Glucose Point of Care 78 mg/dl (65-105)
[2024-10-18] MEDS: ATORVASTATIN 40 MG TABLET PO (09:19)
[2024-10-18] MEDS: PANTOPRAZOLE 40 MG TABLET PO (09:19)
[2024-10-18] MEDS: SODIUM BICARBONATE TAB 325 MG TABLET PO ×2 (09:19→17:40)
[2024-10-18] MEDS: ASPIRIN 81 MG ENTERIC TABLET PO (09:19)
[2024-10-18] MEDS: lisinopriL 20 MG TABLET PO (09:19)
[2024-10-18] MEDS: LETROZOLE (*CHEMO) 2.5 MG TABLET PO (09:19)
[2024-10-18] MEDS: CLOPIDOGREL BISULFATE 75 MG TABLET PO (09:19)
[2024-10-18] MEDS: SERTRALINE HCL 50 MG TABLET PO (09:19)
[2024-10-18] MEDS: CALCIUM/VITAMIN D 500 MG/5 MCG (200 I.U.) TABLET PO (09:19)
[2024-10-18] MEDS: DULoxetine HCL 30 MG CAPSULE.DR PO ×2 (09:20→17:40)
[2024-10-18] MEDS: polyethylene glycoL 3350 17 GM POWD.PACK PO (09:20)
[2024-10-18] MEDS: HEPARIN SODIUM 5,000 UNITS/ML VIAL 5000 UNITS SUB-Q (09:20)
[2024-10-18] MEDS: EPOETIN ALFA-EPBX 10,000 UNITS/ML VIAL 10000 UNITS SUB-Q (09:22)
[2024-10-18 10:08] LABS: Iron 84 ug/dL (37-170)
[2024-10-18 10:18] LABS: Percent Iron Saturation 32 % (20-50)
[2024-10-18 11:24] LABS: Glucose Point of Care 101 mg/dl (65-105)
--- NOTE | 2024-10-18 11:55 | P.PNNP_ITS ---
Progress Note: A&P Assessment and Plan (1) Stage 5 chronic kidney disease: Code(s): N18.5 - Chronic kidney disease, stage 5 Status: Acute Assessment and Plan: * baseline creatinine has been running around 3.2 - 4.0mg/dl since October 2022 * this cause her GFR to fluctuate from 12 - 15cc/min * thought to be secondary to DM, HTN, vascular disease and age * follows with Dr. 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 (2) Cellulitis of arm, left: Code(s): L03.114 - Cellulitis of left upper limb Status: Acute Assessment and Plan: * as noted on admission * luckily, does not appear to have affected the her AVF * follow culture data * on antibiotics (3) Pulmonary infiltrate: Code(s): R91.8 - Other nonspecific abnormal finding of lung field Status: Acute Assessment and Plan: * as noted by recent CXR * no significant respiratory symptoms * no evidence of hypoxia * cultures noted * on antibiotics (4) Anemia: Code(s): D64.9 - Anemia, unspecified Status: Acute Assessment and Plan: * presumably due to advanced CKD and acute illness * evidence of iron deficiency as well by admission anemia studies * s/p IV venofer * Epogen while hospitalized * follow trend of H/H (5) Essential hypertension: Code(s): I10 - Essential (primary) hypertension Status: Chronic Assessment and Plan: * reasonable control * follow trend of hemodynamics (6) Diabetes mellitus: Qualifiers: Diabetes mellitus type: type 2 Diabetes mellitus manager terminal insulin use: with residential use Diabetes mellitus complication status: with hypoglycemia D iabetes mellitus complication detail: without coma Qualified Code(s): E11.649 - Type 2 diabetes mellitus with hypoglycemia without coma; Z79.4 - skilled nursing (current) use of insulin Code(s): E11.9 - Type 2 diabetes mellitus without complications Status: Chronic Assessment and Plan: * follow accu-cheks * glycemic control per hospitalists Not opposed to discharge from renal perspective if otherwise medically stable -- she can follow-up with her primary medical accounting clerk for ongoing management of her advanced CKD. Will continue to follow. L Subjective Date/time seen: 10/18/24 11:55 Interval history: Follow-up for chronic kidney disease. Appears to be doing reasonably well; no issues/events overnight or earlier this morning; renal function/creatinine appears to be improving/stabilizing by trend of recent labs; no other acute complaints voiced at the time of my visit. Exam 2 Narrative: General: WD/WN female in NAD Heart: normal S1 and S2; no rub Lungs: clear anteriorly Abdomen: soft, nontender, nondistended, positive bowel sounds Extremities: no cyanosis or clubbing; no edema Skin: warm and intact Objective Data Vital Signs Vital Signs: Vital Signs Temp Pulse Resp BP Pulse Ox O2 Del Method FiO2 10/18/24 09:20 Room Air 10/18/24 05:08 97.3 F L 81 18 148/67 H 100 10/17/24 21:08 97.2 F L 79 20 178/76 H 99 10/17/24 20:29 Room Air 10/17/24 20:12 87 20 97 Room Air 21 Intake/Output Intake/Output: Intake & Output 10/15/24 10/16/24 10/17/24 10/18/24 23:59 23:59 23:59 23:59 Intake Total 1260 1100 1090 640 Output Total 2101 Balance -841 1100 1090 640 Meds/Results Medications: Active Medications Generic Name Dose Route Start Last Admin Trade Name Freq PRN Reason Stop Dose Admin Amoxicillin/Clavulanate Potassium 1 tablet 10/18/24 21:00 Amoxicillin/Clavulanate K 500-125 Mg Tab PO 10/28/24 09:01 Q12HR JITENDRA Aspirin 81 mg 10/15/24 09:00 10/18/24 09:19 Aspirin 81 Mg Enteric Tablet PO 81 mg DAILY JITENDRA Administration Atorvastatin Calcium 40 mg 10/15/24 09:00 10/18/24 09:19 Atorvastatin 40 Mg Tablet PO 40 mg DAILY JITENDRA Administration Calcitriol 0.25 mcg 10/17/24 09:00 10/17/24 10:23 Calcitriol 0.25 Mcg Capsule PO 0.25 mcg MoWeFr@0900 JITENDRA Administration Calcium Carbonate 500 mg 10/15/24 09:00 10/18/24 09:19 Calcium/Vitamin D 500 Mg/5 Mcg (200 I.U.) Tablet PO 500 mg QAM JITENDRA Administration Clopidogrel Bisulfate 75 mg 10/15/24 09:00 10/18/24 09:19 Clopidogrel Bisulfate 75 Mg Tablet PO 75 mg DAILY JITENDRA Administration Dextrose 12.5 gm 10/14/24 20:33 10/15/24 07:26 Dextrose 50% 25 Gm/50 Ml Syringe IV PUSH 12.5 gm PRN PRN Administration Hypoglycemia Protocol Duloxetine HCl 30 mg 10/15/24 09:00 10/18/24 09:20 Duloxetine Hcl 30 Mg Capsule.Dr PO 30 mg BID JITENDRA Administration Epoetin Angel-epbx 10,000 units 10/15/24 09:00 10/18/24 09:22 Epoetin Angel-Epbx 10,000 Units/Ml Vial SUB-Q 10,000 units TUTHSA@09 JITENDRA Administration Glucagon 1 mg 10/14/24 20:33 Glucagon For Inj 1 Mg Vial IM PRN PRN Hypoglycemia Protocol Glucose 15 gm 10/14/24 20:33 Glucose Oral Gel 15 Gm Of Glucse In 37.5 Gm Tube PO PRN PRN Hypoglycemia Protocol Heparin Sodium (Porcine) 5,000 units 10/14/24 21:00 10/18/24 09:20 Heparin Sodium 5,000 Units/Ml Vial SUB-Q 5,000 units Q12HR JITENDRA Administration Dextrose 1,000 mls @ 100 mls/hr 10/14/24 20:33 Dextrose 5% 1,000 Ml IVPB PRN PRN Hypoglycemia Protocol Insulin Aspart 2 - 5 units 10/15/24 08:00 10/18/24 11:36 Insulin Aspart (*Bkc) 100 Units/Ml SUB-Q Not Given TIDWM [facility] Protocol Insulin Glargine 5 units 10/15/24 21:00 10/17/24 20:29 Insulin Glargine (*Bkc) 100 Units/Ml SUB-Q 5 units HS JITENDRA Administration Letrozole 2.5 mg 10/15/24 09:00 10/18/24 09:19 Letrozole (*Chemo) 2.5 Mg Tablet PO 2.5 mg DAILY JITENDRA Administration Lisinopril 20 mg 10/15/24 09:00 10/18/24 09:19 Lisinopril 20 Mg Tablet PO 20 mg DAILY JITENDRA Administration Pantoprazole Sodium 40 mg 10/15/24 09:00 10/18/24 09:19 Pantoprazole 40 Mg Tablet PO 40 mg DAILY JITENDRA Administration Polyethylene Glycol 17 gm 10/15/24 12:30 10/18/24 09:20 Polyethylene Glycol 3350 17 Gm Powd.Pack PO 17 gm QAM JITENDRA Administration Sertraline HCl 50 mg 10/15/24 09:00 10/18/24 09:19 Sertraline Hcl 50 Mg Tablet PO 50 mg DAILY JITENDRA Administration Sodium Bicarbonate 325 mg 10/15/24 09:00 10/18/24 09:19 Sodium Bicarbonate Tab 325 Mg Tablet PO 325 mg BID JITENDRA Administration Trazodone HCl 100 mg 10/14/24 21:00 10/17/24 20:29 Trazodone Hcl 50 Mg Tablet PO 100 mg HS JITENDRA Administration Radiology Results: ITS Impressions Venous Doppler Study 10/14/24 15:45 IMPRESSION: 1. Patent left upper extremity veins. No evidence of deep venous thrombosis. Chest X-Ray 10/17/24 09:00 Impression: Normal chest. Pulmonary Perfusion Imaging 10/17/24 14:23 IMPRESSION: 1. Normal study. Very low probability for pulmonary embolism. Labs Labs: Laboratory Tests 10/18/24 05:56 10/18/24 05:56 Calcium 8.2 L Iron 84 TIBC 259 L % Saturation 32 Ferritin 309 H Total Bilirubin 0.2 AST 30 ALT 22 Alkaline Phosphatase 101 Total Protein 6.0 L Albumin 3.0 L
[2024-10-18] MEDS: AZITHROMYCIN 250 MG TABLET 500 MG PO (12:06)
[2024-10-18 14:00] VITALS: BP 164/88; PULSE 76; RESP 18; TEMP 36.2; O2SAT 100
--- NOTE | 2024-10-18 14:33 | PM.DS ---
DS: Admitting Diagnosis Discharge Date 10/18/14 Admitting Diagnosis Redness and swelling of left arm DS: Discharge Diagnosis Discharge Diagnosis (1) Anemia: Code(s): D64.9 - Anemia, unspecified Status: Acute (2) Pneumonia: Qualifiers: Laterality: left Lung location: upper lobe of lung Pneumonia type: due to unspecified organism Qualified Code(s): J18.9 - Pneumonia, unspecified organism Code(s): J18.9 - Pneumonia, unspecified organism Status: Acute (3) Cellulitis of arm, left: Code(s): L03.114 - Cellulitis of left upper limb Status: Acute DS: Summary Hospital Course Hospital Course: 68-year-old female with medical history of memory loss, prior CVA, chronic kidney disease stage 5, AV fistula left arm, essential hypertension, and type 2 diabetes who presented to the ER requesting an ultrasound of her left arm due to redness and swelling. The patient had been at [facility] and was told to come to our ER for evaluation since they did not have ultrasound services. Patient's family reports the patient does have a history of poor memory but she does not yet have an official diagnosis of dementia. The patient at the time my evaluation is alert oriented to person, place and month but cannot state the year. Patient was managed for Cellulitis left UE, was initially on Ceftriaxone and Azithromycin. Redness and swelling markedly improved and aptient discharged on 10 more days of Augmentin and Doxycycline to complete 14 days. Also CXR on admission showed MARYAN infiltrate patient was also managed for Pneumonia and antibiotics as above. Was noted to have Low hemoglobin and possitive occult blood stool, GI was consulted and he noted patient does not have active bleeding and follow up outpatient for further intervention consideration. Patient also receives Iron infusion outpatinet and Nephrolgoy was consulted adn patient was started on Epoigen. Hb today is 7.5 and patient will continue follow up with GI and Nephrology as instructed. Iron studies showed iron replete, contineu Epoigen as with nephrology CKD, renal function at baseline. Continue other home meds F/u with PCP in 3-5 days F/u with GI adn Nephrology as instructed Time Spent with Patient Time attestation: Total time spent providing and/or coordinating discharge services: DS: Data Data Completed and Pending Labs on day of discharge: Labs from last 24 hours 10/18/24 10/18/24 10/18/24 11:18 07:27 05:56 WBC 4.9 RBC 2.62 L Hgb 7.5 L Hct 23.4 L MCV 89.3 MCH 28.6 MCHC 32.1 RDW 16.8 H Plt Count 248 MPV 9.2 Sodium 136 L Potassium 4.2 Chloride 107 Carbon Dioxide 19 L Anion Gap 10 BUN 68 H Creatinine 3.68 H Estim Creat Clear Calc 13 Estimated GFR 12 L Glucose 79 POC Capillary Glucose 101 78 Calcium 8.2 L Iron TIBC % Saturation Ferritin Total Bilirubin 0.2 AST 30 ALT 22 Alkaline Phosphatase 101 Total Protein 6.0 L Albumin 3.0 L Helox-6-Ihshjchvn Zbjpf-7-Mvpmryacg Htce-4-Rupxxckh Grvs-9-Qpzxouzg Gamma Globulins PEP Interpretation TB Test (QFT) Gold Plus 10/18/24 10/17/24 10/17/24 05:43 19:34 16:13 WBC RBC Hgb Hct MCV MCH MCHC RDW Plt Count MPV Sodium Potassium Chloride Carbon Dioxide Anion Gap BUN Creatinine Estim Creat Clear Calc Estimated GFR Glucose POC Capillary Glucose 131 H 149 H Calcium Iron 84 TIBC 259 L % Saturation 32 Ferritin 309.00 H Total Bilirubin AST ALT Alkaline Phosphatase Total Protein Albumin Sjbqj-1-Pidynytax Selte-7-Ccuvlxkqc Xivm-1-Zpudxozb Gnto-0-Ctrdazli Gamma Globulins PEP Interpretation TB Test (QFT) Gold Plus 10/15/24 10/14/24 21:24 15:44 WBC RBC Hgb Hct MCV MCH MCHC RDW Plt Count MPV Sodium Potassium Chloride Carbon Dioxide Anion Gap BUN Creatinine Estim Creat Clear Calc Estimated GFR Glucose POC Capillary Glucose Calcium Iron TIBC % Saturation Ferritin Total Bilirubin AST ALT Alkaline Phosphatase Total Protein Albumin 3.4 L Rlwon-0-Zravolsqg 0.3 Ptnwu-6-Dtfliqmaj 1.2 H Zfbg-3-Tnzwrmac 0.5 Kgaf-3-Iibfivjw 0.4 Gamma Globulins 1.2 PEP Interpretation See note TB Test (QFT) Gold Plus TNP Preliminary micro results at discharge 10/14/24 20:55 Blood Culture - Preliminary Blood 10/14/24 16:51 Blood Culture - Preliminary Blood Discharge Plan Discharge Attending physician on discharge: Lizbeth Muhammad Consulting providers: Taye Starks Discharging Clinician: Lizbeth Muhammad Anticipated Discharge Date/Time: 10/18/24 14:27 Patient Disposition: Home Activity: as tolerated Diet: as tolerated and diabetic Patient Instructions: Antibiotic Form Patient Language: Kyrgyz Stand Alone Forms: General Discharge Information Follow-up/Referrals: Dionne,Vijay Ortiz M.D. [Primary Care Provider] - (F/u with PCP in 3-5 days ) Veronica Flores APRN [Advanced Practice Nurse] - (F/u with GI as instructed ) Taye Starks MD [Physician] - (F/u with lace and textiles restorer as instructed ) Discharge Medications: New doxycycline hyclate 100 mg tablet 100 mg PO BID 11 Days Qty: 22 0RF amoxicillin-pot clavulanate [Augmentin] 500-125 mg Tablet 1 tablet PO Q12HR 11 Days Qty: 22 0RF Continued calcium carbonate-vitamin D2 600 mg calcium- 200 unit tablet 1 tablet PO DAILY calcitriol 0.25 mcg capsule 0.25 mcg PO .MWF atorvastatin 40 mg tablet 40 mg PO DAILY clopidogrel 75 mg tablet 75 mg PO DAILY aspirin 81 mg tablet,delayed release (DR/EC) 81 mg PO DAILY trazodone 100 mg tablet 100 mg PO HS lisinopril 10 mg tablet 20 mg PO DAILY letrozole 2.5 mg tablet 2.5 mg PO DAILY sertraline [Zoloft] 50 mg tablet 50 mg PO DAILY duloxetine 30 mg capsule,delayed release(DR/EC) 30 mg PO BID pantoprazole 40 mg tablet,delayed release (DR/EC) 40 mg PO DAILY (DME) pen needle, diabetic [Sure Comfort Pen Needle] 31 gauge x 5/16 needle MISCELLANEOUS insulin glargine [Lantus Solostar U-100 Insulin] 100 unit/mL (3 mL) insulin pen 18 unit SUBCUT QPM Date of admission: 10/15/24 13:32 Primary Care Provider: DionenVijay Admitting Provider: Chip Elliott Attending physician on admission: Chip Elliott Condition: Serious
[2024-10-18 17:03] LABS: Glucose Point of Care 141 mg/dl (65-105)
[2024-10-18 18:13] LABS: Pneumococcal Antigen Urine NOT DETECTED
[2024-10-19 17:52] LABS: Legionella pneumophila Ag Ur NOT DETECTED
[2024-10-20 18:22] LABS: Mycoplasma IgM Antibody Titer 106 U/mL
[2024-10-21 13:33] LABS: Soluble Transferrin Receptor 1.42 mg/L (0.76-1.76)
== END 2024-10-18 18:55 | disposition home or self-care (01) | DRG 602 ==
LOC: ANHED 16:40 → ANHIMU 17:36 → ANH3MEDSUR 10-15 12:52
PROVIDERS: Internal Medicine; Internal Medicine Nephrology; Registered Nurse; Admitting Provider General Practice; Emergency Provider Emergency Medicine; PCP Family Medicine; Visit Provider Internal Medicine
DX: L03.114 Cellulitis of left upper limb (principal); J18.9 Pneumonia, unspecified organism; I12.0 Hypertensive chronic kidney disease with stage 5 chronic kidney disease or end stage renal disease; N18.5 Chronic kidney disease, stage 5; E11.22 Type 2 diabetes mellitus with diabetic chronic kidney disease; E11.42 Type 2 diabetes mellitus with diabetic polyneuropathy; E11.649 Type 2 diabetes mellitus with hypoglycemia without coma; E78.5 Hyperlipidemia, unspecified; D63.1 Anemia in chronic kidney disease; D50.9 Iron deficiency anemia, unspecified; L29.89 Other pruritus; K21.9 Gastro-esophageal reflux disease without esophagitis; R19.5 Other fecal abnormalities; R41.3 Other amnesia; Z20.822 Contact with and (suspected) exposure to COVID-19; Z79.82 Long term (current) use of aspirin; Z79.02 Long term (current) use of antithrombotics/antiplatelets; Z79.4 Long term (current) use of insulin; Z87.891 Personal history of nicotine dependence; Z85.3 Personal history of malignant neoplasm of breast; Z86.73 Personal history of transient ischemic attack (TIA), and cerebral infarction without residual deficits
CPT/HCPCS: 36415; 71045; 71046; 78582; 80048; 80053; 80069; 81001; 82248; 82274; 82607; 82728; 82746; 82948; 83010; 83036; 83540; 83550; 83615; 84155; 84165; 84238; 84443; 84466; 85014; 85018; 85025; 85027; 85046; 85610; 85730; 86480; 86738; 86880; 87040; 87086; 87449; 87636; 87641; 87899; 93005; 93971; 94640; 96365; 96367; 99285; A9270; A9540; A9558; G0378; J0456; J0696; J1644; J1756; J1815; J7050; Q5105

== ENCOUNTER 2024-12-07 13:52 | Emergency (ER) | payer MEDICARE, SELFPAY ==
--- NOTE | ~2024-12-07 | US_ITS ---
EXAMINATION: US venous doppler UE DATE: 12/07/2024 15:19 INDICATION: swelling . TECHNIQUE: Grayscale ultrasound images without and with compression and Doppler ultrasound images of the left upper extremity veins were obtained. COMPARISON: None. FINDINGS: The visualized portions of the left internal jugular vein, subclavian vein, axillary vein, brachial v eins, basilic vein, cephalic vein, radial vein, and ulnar vein are patent. ACDF at the left AC. IMPRESSION: No left upper extremity deep venous thrombosis. Reviewed, dictated and finalized at location K.
[2024-12-07 14:00] VITALS: BP 168/76; PULSE 76; RESP 20; TEMP 36.6; O2SAT 95
--- OUTSIDE RECORDS SUMMARY | 2024-12-07 14:02 | XMS_ITS ---
Author Organization [facility] Address [address] [place] [id number] Care Team Providers Care Automatic Silk Screen Printer Name Role Phone Vijay Truong MD Primary Care Provider [phone] Rubén Miranda MD PhD Unavailable [phone] Lila James MD Unavailable [phone] Emile Berger MD Unavailable [phone] Ash Fraga MD Unavailable [phone] Active Problems Problem Noted Date Diagnosed Date Dexcom continuous glucose monitoring device 10/10 Assessment & Plan (10/31/2024 10:45 AM CDT): Continuous glucose monitor (cgm) applied from 10/18/2024 to 10/31/2024 This device was placed for monitor and treatment of blood sugar. Interpretation of data- average glucose 165. 59% time in range. 40% hyperglycemia. 1% hypoglycemia-which occurred between 1 and 3:00 a.m. Screening mammogram for breast cancer 09/15/2024 Assessment & Plan (10/25/2024 3:16 PM CDT): Mammogram ordered Orders: SCREENING MAMMOGRAM BILATERAL W SHAHID; Future Assessment & Plan (09/15/2024 1:30 PM CDT): Mammogram ordered. Will plan accordingly once results are received. Lung nodule 03/17/2024 Assessment & Plan (03/17/2024 7:38 AM RUBBER COMPOUNDER SUPERVISOR): Stable. Following with pulmonology and will continue to do so. Hypertension associated with diabetes 03/17/2024 Assessment & Plan (10/25/2024 3:16 PM CDT): Well controlled on lisinopril. Will continue to monitor. Orders: lisinopriL (PRINIVIL,ZESTRIL) 10 mg tablet; Take 2 tablets (20 mg total) by mouth daily Assessment & Plan (09/15/2024 1:29 PM CDT): Well controlled on lisinopril. Will continue to monitor. Assessment & Plan (04/27/2024 1:21 PM RUBBER COMPOUNDER SUPERVISOR): This is a chronic condition which is not at goal on arrival. At goal after rest. Goal is less than 140/90 Continue lisinopril, Lasix Encouraged to monitor weight and B/P at home. Assessment & Plan (03/17/2024 7:39 AM RUBBER COMPOUNDER SUPERVISOR): Normotensive. Continue lisinopril. Will continue to monitor. Colon cancer screening 03/17/2024 Assessment & Plan (03/17/2024 7:39 AM RUBBER COMPOUNDER SUPERVISOR): Referral to GI for screening colonoscopy placed History of colonic polyps 03/17/2024 Encounter for screening colonoscopy 03/17/2024 Anemia of chronic renal failure, stage 4 (severe ) 03/07/2024 Assessment & Plan (09/15/2024 1:29 PM CDT): Renal function stable. Anemia improving. Continues following closely with Nephrology. Assessment & Plan (03/17/2024 7:36 AM RUBBER COMPOUNDER SUPERVISOR): Stable. Following with Nephrology and will continue to do so. Adverse reaction to drug 05/19/2023 Chronic renal insufficiency 05/19/2023 Falls 05/19/2023 UTI (urinary tract infection) 05/19/2023 Blurred vision, bilateral 05/21/2022 Brain lesion 05/21/2022 Lung mass 05/20/2022 Homonymous hemianopia, right 05/20/2022 History of breast cancer 03/30/2022 Encounter for annual wellness exam in Medicare p atient 01/17/2022 Assessment & Plan (03/17/2024 7:36 AM RUBBER COMPOUNDER SUPERVISOR): Visit preventive in nature. We reviewed medications, [...] 21 Assessment & Plan (04/09/2021 5:57 PM RUBBER COMPOUNDER SUPERVISOR): Vaccine given in office today. Reviewed possible side effects/injection site reactions. BMI 23.0-23.9, adult 08/16/2020 Assessment & Plan (10/25/2024 3:16 PM CDT): Weight appropriate for patient. Assessment & Plan (12/08/2022 1:56 PM CDT): 15 lb weight loss since last office visit Increased insulin to 24 units daily Will reestablish meals on wheels once a day States she is eating 3 meals per day in her son does the cooking Assessment & Plan (05/16/2022 5:25 PM RUBBER COMPOUNDER SUPERVISOR): Weights stable. Working on diet and exercise, previously riding stationary bike. Assessment & Plan (01/17/2022 10:16 AM CDT): Discussed healthy diet and importance of regular physical activity. Assessment & Plan (10/13/2021 1:35 PM CDT): Congratulated patient on her efforts to improve diet. Discussed healthy diet and importance of regular physical activity. Assessment & Plan (07/11/2021 11:00 AM RUBBER COMPOUNDER SUPERVISOR): Discussed healthy diet and importance of regular physical activity. Assessment & Plan (04/09/2021 5:57 PM RUBBER COMPOUNDER SUPERVISOR): Discussed healthy diet and importance of regular [...] bedtime. Assessment & Plan (05/17/2020 1:10 PM RUBBER COMPOUNDER SUPERVISOR): Omeprazole refilled. Reviewed provocative foods to avoid: caffeine, citrus, ETOH, carbonated drinks, fried/fatty/fast foods & rich/creamy sauces. Reviewed diet/exercise recommendations: 20-30min physicaly activity daily at minimum. Reviewed med Ses & scheduling. Weight loss will help improve GERD sxs. Keep HOB elevated 30 degrees & not eat 2-3 hrs before bedtime. Regional lymph node metastasis present Assessment & Plan (05/17/2020 1:09 PM RUBBER COMPOUNDER SUPERVISOR): L axillary lymph node. Anxious re: new L breast ca dx. Anxious re: pending treatments. Discussed at length during appt. Copies of recent screening/diagnostic mamm & ultrasound of L breast given to mrs Mjeia. Discussed lymph node involvement. Referral placed to Dr James at [facility]. Aware that her office will call her [...] from 05/09/2020:Stage IIA(cT2, cN1(f), cM0, G1, ER+, MA+, HER2-) - Signed by Rubén Miranda MD PhD on 07/27/2020 Pathologic stage from 07/02/2020:Stage IA(pT2, pN1a(sn), cM0, G1, ER+, MA+, HER2- ) - Signed by Rubén Miranda MD PhD on 07/27/2020 Assessment & Plan (01/17/2022 10:19 AM CDT): Assessment & Plan (04/09/2021 6:01 PM RUBBER COMPOUNDER SUPERVISOR): Follows with oncology, continues letrozone. To have [...] necessary. Assessment & Plan (05/17/2020 1:08 PM RUBBER COMPOUNDER SUPERVISOR): Anxious re: new L breast ca dx. Anxious re: pending treatments. Discussed at length during appt. Copies of recent screening/diagnostic mamm & ultrasound of L breast given to mrs Mejia. Discussed lymph node involvement. Referral placed to Dr James at [facility]. Aware that her office will call her to set up but number # incase call not rec'd. Referral printed for Mrs Mejia to have address/phone #. Answered any/all questions. aware to call if further questions after she's left. Dyslipidemia associated with type 2 diabetes mary litus 02/08/2020 Assessment & Plan (10/25/2024 3:16 PM CDT): Stable on atorvastatin. Tolerating without side effects. Will continue. Orders: atorvastatin (LIPITOR) 40 mg tablet; Take 1 tablet (40 mg total) by mouth daily Assessment & Plan (09/15/2024 1:29 PM CDT): Stable on atorvastatin. Tolerating without side effects. Will continue. Assessment & Plan (04/27/2024 1:21 PM RUBBER COMPOUNDER SUPERVISOR): This is a chronic condition which is at goal . Goal is LDL less than 70 Continue atorvastatin Encouraged to eat healthy, include fresh fruits and vegetables daily and avoid eating fried foods more than once per week. Assessment & Plan (03/17/2024 7:36 AM RUBBER COMPOUNDER SUPERVISOR): Stable. Continue atorvastatin. Tolerating without side effects. Will continue to monitor. Assessment & Plan (01/13/2024 12:49 PM CDT): This is a chronic condition which is at goal . Goal is LDL less than 70 Continue atorvastatin Encouraged to eat healthy, include fresh fruits and vegetables daily and avoid eating fried foods more than once per week. Assessment & Plan (04/06/2023 3:43 PM RUBBER COMPOUNDER SUPERVISOR): This is a chronic condition which is [...] prescribed. Assessment & Plan (06/19/2022 2:10 PM RUBBER COMPOUNDER SUPERVISOR): This is a chronic condition which is not at goal of LDL less than 70 Continue atorvastatin Encouraged to eat healthy, include fresh fruits and vegetables daily and avoid eating fried foods more than once per week. Encouraged to take medications as prescribed. Assessment & Plan (05/16/2022 5:17 PM RUBBER COMPOUNDER SUPERVISOR): Continue current regimen. Assessment & Plan (01/17/2022 10:16 AM CDT): 01/10/22 TC 186 TRG 421 HDL 29 LDL 90 Continue current regimen, recommended fish oil supplementation and following low fat diet. Will repeat labs prior to next office visit. Assessment & Plan (10/13/2021 1:35 PM CDT): Continue atorvastatin daily. Assessment & Plan (07/11/2021 11:16 PM RUBBER COMPOUNDER SUPERVISOR): Reviewed previous lipid panel. Doing well on atorvastatin 40 mg daily, denies any medication side effects. Assessment & Plan (04/09/2021 6:00 PM RUBBER COMPOUNDER SUPERVISOR): Results for orders placed or performed in [...] & Plan (08/16/2020 11:24 AM CDT): 12/22/18 HG=407 HDL=43 JX=157 LDL=88 TC/HDL=4.74 07/04/19 TC=78 HDL=32 VU=622 VED=596 TC/HDL=10.3 11/07/19 CT=219 DL=27 YK=762 LJX=290 CALC TC/HDL=12.0 to lab 02/09/20 MF=513 HDL=38 UH=469 LDL=92 TC/HLD=5.0 The 10-year ASCVD risk score [...] flags. Assessment & Plan (05/17/2020 1:10 PM RUBBER COMPOUNDER SUPERVISOR): We will check labs and make adjustments [...] Ses. Reviewed diet/exercise recommendations. Reviewed red flags. 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 Will continue to monitor and get routine eye exams. Assessment & Plan (05/16/2022 5:23 PM RUBBER COMPOUNDER SUPERVISOR): Lab Results Component Value Date HGBA1C 9.9 [...] 04/09/2021 Assessment & Plan (07/11/2021 11:17 PM RUBBER COMPOUNDER SUPERVISOR): Lab Results Component Value Date HGBA1C 10.5 07/11/2021 HGBA1C 9.7 04/09/2021 HGBA1C 11.7 01/07/2021 Patient agreeable to meet with family living educator to discuss healthy food choices to improve blood glucose. Referral placed. Will start basal insulin 10 units nightly, reviewed medication administration, follow up in 3 months and bring copy of blood sugar log to next apt. Reviewed s/s of hypo/hypergylcemia. Assessment & Plan (04/09/2021 6:08 PM RUBBER COMPOUNDER SUPERVISOR): Lab Results Component Value Date HGBA1C 9.7 [...] month Assessment & Plan (05/17/2020 1:09 PM RUBBER COMPOUNDER SUPERVISOR): Lab Results Component Value Date HGBA1C 9.6 [...] evaluation. Last eye exam december 2018 at [facility]. Letter sent to get copy of results from that date. Type 2 diabetes mellitus wit h stage 5 chronic kidney disease not on chronic dialysis, with long-term current use of insulin 11/06/2019 Overview (10/31/2024): >>OVERVIEW FOR STAGE 4 CHRONIC KIDNEY DISEASE DUE TO TYPE 2 DIABETES MELLITUS (HCC) WRITTEN ON 05/19/2023 10:09 AM BY NELIDA CORDERO MA Last Assessment & Plan: 09/18/20 GFR=17 11/08/20 GFR=26 02/14/21 GFR=22 10/01/21 GFR=27 Scheduled with nephrology 10/25/21. >>OVERVIEW FOR TYPE 2 DIABETES MELLITUS WITHOUT COMPLICATION, WITH LONG-TERM CURRENT USE OF INSULIN (HCC) WRITTEN ON 05/19/2023 10:15 AM BY NELIDA CORDERO MA Last Assessment & Plan: Improved control with addition of basal insulin. Patient out of glipizide for the past 1 month. Continue keeping bg log. Follow up in 3 months. Lab Results Component Value Date HGBA1C 8.2 10/11/2021 HGBA1C 10.5 07/11/2021 HGBA1C 9.7 04/09/2021 Assessment & Plan (10/31/2024 10:42 AM CDT): >>ASSESSMENT AND PLAN FOR TYPE 2 DIABETES MELLITUS WITHOUT COMPLICATION, WITH LONG-TERM CURRENT USE OF INSULIN (HCC) WRITTEN ON 03/17/2024 7:35 AM BY LATA CORRAL NP Improving. Continue following with endocrinology. Red flags reviewed. Assessment & Plan (10/31/2024 10:42 AM CDT): >>ASSESSMENT AND PLAN FOR TYPE 2 DIABETES MELLITUS WITHOUT COMPLICATION, WITH LONG-TERM CURRENT USE OF INSULIN (HCC) WRITTEN ON 04/27/2024 1:21 PM BY MORE YEPEZ NP This is a chronic condition which is [...] <30 Continue lasix, lisinopril. Assessment & Plan (10/31/2024 10:41 AM CDT): >>ASSESSMENT AND PLAN FOR STAGE 4 CHRONIC KIDNEY DISEASE DUE TO TYPE 2 DIABETES MELLITUS (HCC) WRITTEN ON 11/07/2019 9:59 AM BY LEANDER GARCIA NP CMP drawn 09/28/18 show GFR=27, BUN=45, creatinine=1.92 CMP ordered today. Will contact w/results once rec'd. Will also fax results to Dr Berger as requested by Mrs Mejia. Assessment & Plan (10/31/2024 10:41 AM CDT): >>ASSESSMENT AND PLAN FOR STAGE 4 CHRONIC KIDNEY DISEASE DUE TO TYPE 2 DIABETES MELLITUS (HCC) WRITTEN ON 02/09/2020 9:31 AM BY LEANDER GARCIA NP 11/07/19 GFR=35. Labs ordered; will recheck today. Assessment & Plan (10/31/2024 10:41 AM CDT): >>ASSESSMENT AND PLAN FOR STAGE 4 CHRONIC KIDNEY DISEASE DUE TO TYPE 2 DIABETES MELLITUS (HCC) WRITTEN ON 05/17/2020 1:11 PM BY LEANDER GARCIA NP GFR 11/07/19=35 GFR 02/09/20=35. Has been stable. Will recheck today. Assessment & Plan (10/31/2024 10:41 AM CDT): >>ASSESSMENT AND PLAN FOR STAGE 4 CHRONIC KIDNEY DISEASE DUE TO TYPE 2 DIABETES MELLITUS (HCC) WRITTEN ON 08/16/2020 11:23 AM BY LEANDER GARCIA NP GFR 11/07/19=35 GFR 02/09/20=35 GFR 05/17/20=31 Will stop metformin & switch to glipizide d/t decreasing renal function. Assessment & Plan (10/31/2024 10:41 AM CDT): >>ASSESSMENT AND PLAN FOR STAGE 4 CHRONIC KIDNEY DISEASE DUE TO TYPE 2 DIABETES MELLITUS (HCC) WRITTEN ON 01/21/2021 12:08 PM BY CONNOR RICHARDS NP GFR improvement with discontinuation of metformin. 09/18/20 GFR=17 11/08/20 GFR=26 Discussed need for medication and diet compliance. Given referral to nephrology today. Assessment & Plan (10/31/2024 10:41 AM CDT): >>ASSESSMENT AND PLAN FOR STAGE 4 CHRONIC KIDNEY DISEASE DUE TO TYPE 2 DIABETES MELLITUS (HCC) WRITTEN ON 04/09/2021 5:59 PM BY CONNOR RICHARDS NP 09/18/20 GFR=17 11/08/20 GFR=26 02/14/21 GFR=22 Updated referral to nephrology. Patient given contact information. Will repeat lab work today. Assessment & Plan (10/31/2024 10:41 AM CDT): >>ASSESSMENT AND PLAN FOR STAGE 4 CHRONIC KIDNEY DISEASE DUE TO TYPE 2 DIABETES MELLITUS (HCC) WRITTEN ON 10/13/2021 1:41 PM BY CONNOR RICHARDS NP 09/18/20 GFR=17 11/08/20 GFR=26 02/14/21 GFR=22 10/01/21 GFR=27 Scheduled with nephrology 10/25/21. Assessment & Plan (10/31/2024 10:41 AM CDT): >>ASSESSMENT AND PLAN FOR STAGE 4 CHRONIC KIDNEY DISEASE DUE TO TYPE 2 DIABETES MELLITUS (HCC) WRITTEN ON 01/17/2022 9:44 AM BY CONNOR RCIHARDS NP 09/18/20 GFR=17 11/08/20 GFR=26 02/14/21 GFR=22 10/01/21 GFR=27 01/10/22 GFR=20 Following with nephrology. Assessment & Plan (10/31/2024 10:41 AM CDT): >>ASSESSMENT AND PLAN FOR STAGE 4 CHRONIC KIDNEY DISEASE DUE TO TYPE 2 DIABETES MELLITUS (HCC) WRITTEN ON 05/16/2022 5:23 PM BY CONNOR RICHARDS NP Following with nephrology. Discussed importance of well controlled blood pressure and diabetes management. Assessment & Plan (10/31/2024 10:42 AM CDT): >>ASSESSMENT AND PLAN FOR TYPE 2 DIABETES MELLITUS WITH STAGE 5 CHRONIC KIDNEY DISEASE NOT ON CHRONIC DIALYSIS, WITH LONG-TERM CURRENT USE OF INSULIN (HCC) WRITTEN ON 10/25/2024 3:16 PM BY LOLITA SMITH NP Will be starting Dialysis soon. Continue to follow with Endocrinology. Will continue to monitor. Continues with Lantus nightly and monitoring blood sugars with Dexcom. >>ASSESSMENT AND PLAN FOR TYPE 2 DIABETES MELLITUS WITHOUT COMPLICATION, WITH LONG-TERM CURRENT USE OF INSULIN (HCC) WRITTEN ON 10/25/2024 3:16 PM BY LOLITA SMITH NP Stable and well controlled. Will continue to monitor with Dexcom and follow with Endocrinology. Will continue on Glargine Lab Results Component Value Date HGBA1C 5.9 04/27/2024 HGBA1C 8.1 (H) 12/23/2023 HGBA1C 6.1 04/06/2023 Assessment & Plan (01/13/2024 12:48 PM CDT): [...] Lasix Assessment & Plan (04/06/2023 3:42 PM RUBBER COMPOUNDER SUPERVISOR): This is a chronic condition which is [...] atorvastatin. Assessment & Plan (06/19/2022 2:08 PM RUBBER COMPOUNDER SUPERVISOR): This is a chronic condition which is [...] Goal of less than 70. Continue atorvastatin Hypertensive disorder 07/04/2019 Overview (05/19/2023): Last Assessment & Plan: Stable; continue current medication regimen. Assessment & Plan (04/06/2023 3:43 PM RUBBER COMPOUNDER SUPERVISOR): This is a chronic condition which is [...] prescribed. Assessment & Plan (06/19/2022 2:09 PM RUBBER COMPOUNDER SUPERVISOR): This is a chronic condition which is at goal of less than 140/90 Hypotension 94/48 Personally reviewed labs. Decrease lisinopril to 10 mg p.o. daily Encouraged to take medications as prescribed. Assessment & Plan (05/16/2022 5:23 PM RUBBER COMPOUNDER SUPERVISOR): Blood pressure well controled today. No changes in current regimen. Assessment & Plan (01/17/2022 10:14 AM CDT): Condition is stable Discussed/ordered labs, encouraged healthy, low carbohydrate lifestyle and at least 150min/week of exercise, continue on lisinopril 20 mg daily. BP checked by myself 118/80 Assessment & Plan (10/13/2021 1:41 PM CDT): Stable; continue current medication regimen. Assessment & Plan (07/11/2021 11:17 PM RUBBER COMPOUNDER SUPERVISOR): BP well controlled today. No changes in current medication regimen. Assessment & Plan (04/09/2021 6:10 PM RUBBER COMPOUNDER SUPERVISOR): Patient encouraged to take BP medication as [...] received. Assessment & Plan (05/17/2020 1:09 PM RUBBER COMPOUNDER SUPERVISOR): Does not check BP at home. The [...] (09/29/2018): Added automatically from request for surgery [id number] Fibromyalgia 01/01/2017 Assessment & Plan (03/17/2024 7:36 AM RUBBER COMPOUNDER SUPERVISOR): Stable on duloxetine. No changes. Will continue to monitor. Primary osteoarthritis involving multiple joints 01/01/2017 Major depressive disorder 01/01/2017 Assessment & Plan (10/25/2024 3:16 PM CDT): Stable and well controlled. Will continue on Duloxetine. Will continue to monitor. Refilled medication Orders: DULoxetine DR (CYMBALTA) 30 mg capsule; Take 1 capsule (30 mg total) by mouth 2 (two) times a day Assessment & Plan (07/11/2021 11:04 AM RUBBER COMPOUNDER SUPERVISOR): Managed by Dr. Berger at [facility], following up every 3 months. Continues seeing therapist once monthly. Discussed increasing frequency of counseling to once weekly if able. PHQ today 21. Discussed importance of regular exercise/ healthy diet and general healthy lifestyle to improve moods. Lives at home with son and two grandsons. Reports supportive family. Denies any SI/HI. Assessment & Plan (04/09/2021 10:47 AM RUBBER COMPOUNDER SUPERVISOR): PHQ=19 (worsening with breast CA diagnosis) Hydroxyzine 25mg q6hr prn, risperidone 2mg nightly, trazodone 100mg nightly, duloxetine DR 60mg daily, amitriptyline 25mg nightly. Managed by Dr Berger at [facility]. Sees him q3mos. Also sees therapist Kay at [facility]. Denies suicidal/homicidal ideation. Assessment & Plan (08/16/2020 11:22 AM CDT): Hydroxyzine 25mg q6hr prn, risperidone 2mg nightly, trazodone 100mg nightly, duloxetine DR 60mg daily, amitriptyline 25mg nightly. Managed by Dr Berger at [facility]. Doing phone visits with him q3mos. Also with therapist Kay at [facility]. Reports good control of depression w/current regimen. No changes to be made at this time. Reviewed med Ses & scheduling. Reviewed red flags. Assessment & Plan (02/09/2020 9:30 AM CDT): Following w/Dr Berger at [facility] every 3 months. following w/monthly therapy appts w/Mellisa Davidson at [facility]. Verified current medications. Will fax lab results to Dr Berger at [facility] once completed. Reports good control of depression w/current regimen. No changes to be made at this time. Reviewed med Ses & scheduling. Reviewed red flags. Assessment & Plan (11/07/2019 10:00 AM CDT): Followed by Dr Berger at [facility]. Reports good control of depression [...] 21 Assessment & Plan (05/17/2020 1:11 PM RUBBER COMPOUNDER SUPERVISOR): Discussed healthy diet and importance of regular [...] healthier, we can set up appointment with fretted instrument maker hand/reproduction production manager. 3. Have an active lifestyle, strive [...] & Plan (11/07/2019 10:01 AM CDT): 12/22/18 JE=506 HDL=43 JB=964 LDL=88 TC/HDL=4.74 07/04/19 TC=78 HDL=32 FV=499 AUN=980 TC/HDL=10.3 11/07/19 TN=005 DL=27 AZ=019 TEP=909 CALC TC/HDL=12.0 Copy of today's lipid panel given to mrs Mejia. Will have tests verified/repeated at lab today. Aware that atorvastatin will need increased if lipid panel elevated.
--- OUTSIDE RECORDS SUMMARY | 2024-12-07 14:02 | XMS_ITS | Referral Summary ---
Author Organization [facility] Address [address] [place] [address] Care Team Providers Care Laborer Livestock Name Role Phone Vijay Truong MD Primary Care Provider [phone] Rubén Miranda MD PhD Unavailable [phone] Lila James MD Unavailable [phone] Emile Berger MD Unavailable [phone] Ash Fraga MD Unavailable [phone] Encounters Date Type Department Care Team Description 12/07/2024 Nurse Triage [facility] [address] [address] Vijay Truong MD 12/07/2024 Telephone [facility] [address] [address] Vijay Truong MD Med Refill 11/28/2024 11:00 AM CDT Lab [address] [phone] 11/15/2024 ACO Outreach [facility] Accountable Care Organization [address] [place] [id number] Ama Douglsa RN 10/31/2024 11:00 AM CDT Office Visit [facility] at [address] [place] [address] Inna Yepez, MAREN Type 2 diabetes mellitus with hypoglycemia without coma, with long-term current use of insulin (HCC) (Primary Dx); 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 disease not on chronic dialysis, with long-term current use of insulin (HCC); 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, with long-term current use of insulin, macular edema presence unspecified (HCC); Hypertension associated with diabetes (HCC); Dyslipidemia associated with type 2 diabetes mellitus (HCC); Dexcom continuous glucose monitoring device 10/28/2024 Telephone [facility] at [address] [place] [address] Inna Yepez NP 10/25/2024 Telephone [facility] [address] [address] Any Mauro MA Successful Phone Call (MED ADHERENCE) 10/25/2024 3:00 PM CDT Office Visit [facility] [address] [address] Lolita Smith NP Hospital discharge follow-up (Primary Dx); Cellulitis of left arm; Dyslipidemia associated with type 2 diabetes mellitus (HCC); Hypertension associated with diabetes (HCC); 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 disease not on chronic dialysis, with long-term current use of insulin (HCC); 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, with long-term current use of insulin, macular edema presence unspecified (HCC); Type 2 diabetes mellitus without complication, with long-term current use of insulin (HCC); Severe episode of recurrent major depressive disorder, without psychotic features (HCC); Screening mammogram for breast cancer; BMI 23.0-23.9, adult 10/20/2024 Telephone [facility] [address] [address] Vijay Truong MD CARE FAST FOOD SALES ASSISTANT NIRMAL IP 10/20/2024 NIRMAL IP Outreach [facility] Care Organization [address] [place] [address] Rose Mary Rosales LPN 10/17/2024 Orders Only [facility] [address] [place] [address] Scanning, Provider 10/15/2024 Orders Only [facility] [address] [place] [address] Scanning, Provider 10/14/2024 Orders Only [facility] [address] [place] [address] Scanning, Provider 10/13/2024 Orders Only [facility] [address] [phone] Radha Rodriges MD 09/19/2024 Telephone [facility] [address] [address] Vijay Truong MD Medical Records Request 09/15/2024 12:30 PM CDT Office Visit [facility] [address] [phone] Lata Corral NP Dyslipidemia associated with type 2 diabetes mellitus (HCC) (Primary Dx); Screening mammogram for breast cancer; Hypertension associated with diabetes (HCC); Anemia of chronic renal failure, stage 4 (severe) (HCC) 09/12/2024 8:55 AM CDT [address] [address] Dyslipidemia associated with type 2 diabetes mellitus (HCC); Hypertension associated with diabetes (HCC) 09/09/2024 Telephone [facility] [address] [phone] Inna Lugo MA Labs Requested for Appointment from Last 3 Months Allergies No known [...] daily 100 each 1 11/18/19 23 Active docusate sodium (COLACE) 100 mg [...] use of insulin, macular edema presence unspecified ([facility]) Use to inject once nightly. E11.65 100 each 4 02/17/[address] (PROTONIX) 40 mg EC tablet Take 1 tablet (40 mg total) by mouth daily 90 tablet 4 03/16/20 24 025 Active cephalexin (KEFLEX) 250 mg capsule Take 1 capsule (250 mg total) by mouth daily On hemodialysis days take after hemodialysis 10 capsule 08/19/19 25 Active oxyCODONE (ROXICODONE) 5 mg immediate release tabletIndications:P ain Take 1 tablet (5 mg total) by mouth every 6 (six) hours as needed for pain Active amoxicillin-clavula stacy (AUGMENTIN) 500-125 mg per tablet Take 1 tablet (500 mg of amoxicillin total) by mouth every 12 (twelve) hours 10/19/19 25 Active doxycycline 100 mg tablet 10/19/19 25 Active aspirin 81 mg enteric coated tablet Take 1 tablet (81 mg total) by mouth daily 90 tablet 3 10/26/[address] (CYMBALTA) 30 mg capsuleIndications: Severe episode of recurrent major depressive disorder, without psychotic features (HCC) Take 1 capsule (30 mg total) by mouth 2 (two) times a day 180 capsule 4 10/26/19 25 026 Active traZODone (DESYREL) 100 mg tablet Take 1 tablet (100 mg total) by mouth nightly 90 tablet 4 10/26/19 25 Active clopidogreL (PLAVIX) 75 mg tablet Take 1 tablet (75 mg total) by mouth daily 90 tablet 3 10/26/19 25 Active atorvastatin (LIPITOR) 40 mg tabletIndications:D yslipidemia associated with type 2 diabetes mellitus (HCC) Take 1 tablet (40 mg total) by mouth daily 90 tablet 4 10/26/19 25 Active lisinopriL (PRINIVIL,ZESTRIL) 10 mg tabletIndications:H ypertension associated with diabetes (HCC) Take 2 tablets (20 mg total) by mouth daily 180 tablet 3 10/26/19 25 Active bisacodyl EC (DULCOLAX EC) 5 mg EC tabletIndications:c onstipation Take 1 tablet (5 mg total) by mouth daily as needed for constipation E11.65 30 tablet 11 10/26/19 25 Active calcitRIOL (ROCALTROL) 0.25 mcg capsule Take 1 capsule (0.25 mcg total) by mouth daily 30 capsule 2 11/22/19 25 Active insulin glargine 100 unit/mL (3 mL) pen for injectionIndication s:Type 2 diabetes mellitus with hypoglycemia without coma, with long-term current use of insulin ([facility]) Inject 14 Units under the skin nightly E11.65 15 mL 11 11/30/19 25 Active calcitRIOL (ROCALTROL) 0.25 mcg capsule Take 1 capsule (0.25 mcg total) by mouth 03/02/20 24 025 Disconti nued(Reo rder) insulin glargine 100 unit/mL (3 mL) pen for injectionIndication s:Type 2 diabetes mellitus with hypoglycemia without coma, with long-term current use of insulin ([facility]) Inject 17 Units under the skin nightly E11.65 15 mL 11 11/01/19 25 025 Disconti nued(Reo rder) Active Problems Problem Noted Date Diagnosed Date [...] Mammogram ordered Orders: SCREENING MAMMOGRAM BILATERAL W [facility]; Future Assessment & Plan (09/15/2024 1:30 PM CDT): Mammogram ordered. Will plan accordingly once results are received. Lung nodule 03/17/2024 Assessment & Plan (03/17/2024 7:38 AM FABRICATION LEAD): Stable. Following with pulmonology and will continue [...] monitor. Assessment & Plan (04/27/2024 1:21 PM FABRICATION LEAD): This is a chronic condition which is not at goal on arrival. At goal after rest. Goal is less than 140/90 Continue lisinopril, Lasix Encouraged to monitor weight and B/P at home. Assessment & Plan (03/17/2024 7:39 AM FABRICATION LEAD): Normotensive. Continue lisinopril. Will continue to monitor. Colon cancer screening 03/17/2024 Assessment & Plan (03/17/2024 7:39 AM FABRICATION LEAD): Referral to GI for screening colonoscopy placed History of colonic polyps 03/17/2024 Encounter for screening colonoscopy 03/17/2024 Anemia of chronic renal failure, stage 4 (severe ) 03/07/2024 Assessment & Plan (09/15/2024 1:29 PM CDT): Renal function stable. Anemia improving. Continues following closely with Nephrology. Assessment & Plan (03/17/2024 7:36 AM FABRICATION LEAD): Stable. Following with Nephrology and will continue to do so. 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 We reviewed medications, [...] 21 Assessment & Plan (04/09/2021 5:57 PM FABRICATION LEAD): Vaccine given in office today. Reviewed possible [...] cooking Assessment & Plan (05/16/2022 5:25 PM FABRICATION LEAD): Weights stable. Working on diet and exercise, previously riding stationary bike. Assessment & Plan (01/17/2022 10:16 AM CDT): Discussed healthy diet and importance of regular physical activity. Assessment & Plan (10/13/2021 1:35 PM CDT): Congratulated patient on her efforts to improve diet. Discussed healthy diet and importance of regular physical activity. Assessment & Plan (07/11/2021 11:00 AM FABRICATION LEAD): Discussed healthy diet and importance of regular physical activity. Assessment & Plan (04/09/2021 5:57 PM FABRICATION LEAD): Discussed healthy diet and importance of regular [...] bedtime. Assessment & Plan (05/17/2020 1:10 PM FABRICATION LEAD): Omeprazole refilled. Reviewed provocative foods to avoid: caffeine, citrus, ETOH, carbonated drinks, fried/fatty/fast foods & rich/creamy sauces. Reviewed diet/exercise recommendations: 20-30min physicaly activity daily at minimum. Reviewed med Ses & scheduling. Weight loss will help improve GERD sxs. Keep HOB elevated 30 degrees & not eat 2-3 hrs before bedtime. Regional lymph node metastasis present Assessment & Plan (05/17/2020 1:09 PM FABRICATION LEAD): L axillary lymph node. Anxious re: new L breast ca dx. Anxious re: pending treatments. Discussed at length during appt. Copies of recent screening/diagnostic mamm & ultrasound of L breast given to mrs Mejia. Discussed lymph node involvement. Referral placed to Dr James at [facility]. Aware that her office will call [...] from 05/09/2020:Stage IIA(cT2, cN1(f), cM0, G1, ER+, OR+, HER2-) - Signed by Rubén Miranda MD PhD on 07/27/2020 Pathologic stage from 07/02/2020:Stage IA(pT2, pN1a(sn), cM0, G1, ER+, OR+, HER2- ) - Signed by Rubén Miranda MD PhD on 07/27/2020 Assessment & Plan (01/17/2022 10:19 AM CDT): Assessment & Plan (04/09/2021 6:01 PM FABRICATION LEAD): Follows with oncology, continues letrozone. To have [...] necessary. Assessment & Plan (05/17/2020 1:08 PM FABRICATION LEAD): Anxious re: new L breast ca dx. Anxious re: pending treatments. Discussed at length during appt. Copies of recent screening/diagnostic mamm & ultrasound of L breast given to mrs Mejia. Discussed lymph node involvement. Referral placed to Dr James at [facility]. Aware that her office will call [...] continue. Assessment & Plan (04/27/2024 1:21 PM FABRICATION LEAD): This is a chronic condition which is at goal . Goal is LDL less than 70 Continue atorvastatin Encouraged to eat healthy, include fresh fruits and vegetables daily and avoid eating fried foods more than once per week. Assessment & Plan (03/17/2024 7:36 AM FABRICATION LEAD): Stable. Continue atorvastatin. Tolerating without side effects. Will continue to monitor. Assessment & Plan (01/13/2024 12:49 PM CDT): This is a chronic condition which is at goal . Goal is LDL less than 70 Continue atorvastatin Encouraged to eat healthy, include fresh fruits and vegetables daily and avoid eating fried foods more than once per week. Assessment & Plan (04/06/2023 3:43 PM FABRICATION LEAD): This is a chronic condition which is [...] prescribed. Assessment & Plan (06/19/2022 2:10 PM FABRICATION LEAD): This is a chronic condition which is not at goal of LDL less than 70 Continue atorvastatin Encouraged to eat healthy, include fresh fruits and vegetables daily and avoid eating fried foods more than once per week. Encouraged to take medications as prescribed. Assessment & Plan (05/16/2022 5:17 PM FABRICATION LEAD): Continue current regimen. Assessment & Plan (01/17/2022 10:16 AM CDT): 01/10/22 TC 186 TRG 421 HDL 29 LDL 90 Continue current regimen, recommended fish oil supplementation and following low fat diet. Will repeat labs prior to next office visit. Assessment & Plan (10/13/2021 1:35 PM CDT): Continue atorvastatin daily. Assessment & Plan (07/11/2021 11:16 PM FABRICATION LEAD): Reviewed previous lipid panel. Doing well on atorvastatin 40 mg daily, denies any medication side effects. Assessment & Plan (04/09/2021 6:00 PM FABRICATION LEAD): Results for orders placed or performed in [...] & Plan (08/16/2020 11:24 AM CDT): 12/22/18 XE=939 HDL=43 MX=224 LDL=88 TC/HDL=4.74 07/04/19 TC=78 HDL=32 ZA=933 DMQ=649 TC/HDL=10.3 11/07/19 QK=856 DL=27 QB=495 ZHH=764 CALC TC/HDL=12.0 to lab 02/09/20 EO=590 HDL=38 HJ=074 LDL=92 TC/HLD=5.0 The 10-year ASCVD risk score (Trezevanttato BARRY Jr., et al., 2013) is: 11.5% [...] flags. Assessment & Plan (05/17/2020 1:10 PM FABRICATION LEAD): We will check labs and make adjustments [...] exams. Assessment & Plan (05/16/2022 5:23 PM FABRICATION LEAD): Lab Results Component Value Date HGBA1C 9.9 [...] 04/09/2021 Assessment & Plan (07/11/2021 11:17 PM FABRICATION LEAD): Lab Results Component Value Date HGBA1C 10.5 07/11/2021 HGBA1C 9.7 04/09/2021 HGBA1C 11.7 01/07/2021 Patient agreeable to meet with neuroscience director na to discuss healthy food choices to improve blood glucose. Referral placed. Will start basal insulin 10 units nightly, reviewed medication administration, follow up in 3 months and bring copy of blood sugar log to next apt. Reviewed s/s of hypo/hypergylcemia. Assessment & Plan (04/09/2021 6:08 PM FABRICATION LEAD): Lab Results Component Value Date HGBA1C 9.7 [...] month Assessment & Plan (05/17/2020 1:09 PM FABRICATION LEAD): Lab Results Component Value Date HGBA1C 9.6 [...] evaluation. Last eye exam december 2018 at [facility]. Letter sent to get copy of [...] (HCC) WRITTEN ON 04/27/2024 1:21 PM BY INNA YEPEZ NP This is a chronic condition [...] WRITTEN ON 01/17/2022 9:44 AM BY CONNOR RICHARDS NP 09/18/20 GFR=17 11/08/20 [...] Lasix Assessment & Plan (04/06/2023 3:42 PM FABRICATION LEAD): This is a chronic condition which is [...] atorvastatin. Assessment & Plan (06/19/2022 2:08 PM FABRICATION LEAD): This is a chronic condition which is [...] regimen. Assessment & Plan (04/06/2023 3:43 PM FABRICATION LEAD): This is a chronic condition which is [...] prescribed. Assessment & Plan (06/19/2022 2:09 PM FABRICATION LEAD): This is a chronic condition which is at goal of less than 140/90 Hypotension 94/48 Personally reviewed labs. Decrease lisinopril to 10 mg p.o. daily Encouraged to take medications as prescribed. Assessment & Plan (05/16/2022 5:23 PM FABRICATION LEAD): Blood pressure well controled today. No changes in current regimen. Assessment & Plan (01/17/2022 10:14 AM CDT): Condition is stable Discussed/ordered labs, encouraged healthy, low carbohydrate lifestyle and at least 150min/week of exercise, continue on lisinopril 20 mg daily. BP checked by myself 118/80 Assessment & Plan (10/13/2021 1:41 PM CDT): Stable; continue current medication regimen. Assessment & Plan (07/11/2021 11:17 PM FABRICATION LEAD): BP well controlled today. No changes in current medication regimen. Assessment & Plan (04/09/2021 6:10 PM FABRICATION LEAD): Patient encouraged to take BP medication as [...] received. Assessment & Plan (05/17/2020 1:09 PM FABRICATION LEAD): Does not check BP at home. The [...] (09/29/2018): Added automatically from request for surgery [id number] Fibromyalgia 01/01/2017 Assessment & Plan (03/17/2024 7:36 AM FABRICATION LEAD): Stable on duloxetine. No changes. Will continue [...] day Assessment & Plan (07/11/2021 11:04 AM FABRICATION LEAD): Managed by Dr. Berger at [facility], following up every 3 months. Continues seeing therapist once monthly. Discussed increasing frequency of counseling to once weekly if able. PHQ today 21. Discussed importance of regular exercise/ healthy diet and general healthy lifestyle to improve moods. Lives at home with son and two grandsons. Reports supportive family. Denies any SI/HI. Assessment & Plan (04/09/2021 10:47 AM FABRICATION LEAD): PHQ=19 (worsening with breast CA diagnosis) Hydroxyzine 25mg q6hr prn, risperidone 2mg nightly, trazodone 100mg nightly, duloxetine DR 60mg daily, amitriptyline 25mg nightly. Managed by Dr Berger at [facility]. Sees him q3mos. Also sees therapist Kay at [facility]. Denies suicidal/homicidal ideation. Assessment & Plan (08/16/2020 11:22 AM CDT): Hydroxyzine 25mg q6hr prn, risperidone 2mg nightly, trazodone 100mg nightly, duloxetine DR 60mg daily, amitriptyline 25mg nightly. Managed by Dr Berger at [facility]. Doing phone visits with him q3mos. Also with therapist Kay at [facility]. Reports good control of depression w/current regimen. No changes to be made at this time. Reviewed med Ses & scheduling. Reviewed red flags. Assessment & Plan (02/09/2020 9:30 AM CDT): Following w/Dr Berger at [facility] every 3 months. following w/monthly therapy appts w/Mellisa Davidson at [facility]. Verified current medications. Will fax lab results to Dr Berger at [facility] once completed. Reports good control of depression w/current regimen. No changes to be made at this time. Reviewed med Ses & scheduling. Reviewed red flags. Assessment & Plan (11/07/2019 10:00 AM CDT): Followed by Dr Berger at [facility]. Reports good control of depression w/current regimen. No changes to be made at this time. Reviewed med Ses & scheduling. Reviewed red flags. Resolved Problems Problem Noted Date Diagnosed Date Resolved Date BMI 27.0-27.9,adult 02/09/2020 08/17/19 Assessment & Plan (05/17/2020 1:11 PM FABRICATION LEAD): Discussed healthy diet and importance of regular [...] healthier, we can set up appointment with hand ii thermal cutter/principal consultant. 3. Have an active lifestyle, strive for [...] & Plan (11/07/2019 10:01 AM CDT): 12/22/18 PI=496 HDL=43 KR=136 LDL=88 TC/HDL=4.74 07/04/19 TC=78 HDL=32 TO=846 XUX=714 TC/HDL=10.3 11/07/19 GD=735 DL=27 RU=654 LFZ=225 CALC TC/HDL=12.0 Copy of today's lipid panel given to mrs Mejia. Will have tests verified/repeated at lab today. Aware that atorvastatin will need increased if lipid panel elevated. Immunizations Immunization Administration Dates Next Due COVID-19 mRNA ([place]) 0.3 m L (30 mcg) vaccine (12 [...] often do you attend chur ch or latter-day services? More than 4 times per year 06/26/2022 Do you belong to any clubs o r organizations such as buddhism groups, unions, fraternal or athletic groups, or [...] more points, staff should administer the PHQ-9) 3 10/25/2024 Exercise Vital Sign Answer Date Recorde d [...] a care home (including now)? No 06/26/2022 PHQ-9 Answer Date Recorded PHQ-9 Total Score 11 10/25/2024 Personal Safety Answer Date Recorded Have you [...] on file Legal Sex Female 12:56 PM FABRICATION LEAD Gender Identity Female 11/17/2024 4:58 PM CDT Sexual Orientation Straight 11/17/2024 4: 58 PM CDT Last Filed Vital Signs Vital Sign Reading Time Taken Comments Blood Pressure 132/80 10/31/2024 10:37 AM CDT Pulse 89 10/25/2024 2:48 PM CDT Temperature 36.2 C (97.2 F) 09/15/2024 12:03 PM CDT Respiratory Rate 18 10/25/2024 2:48 PM CDT Oxygen Saturation 99% 10/25/2024 2:48 PM CDT Inhaled Oxygen Concentration - - Weight 65.8 kg (144 lb 15.7 oz) 025 10:37 AM CDT Height 167.6 cm (5' 5.98) 10/31/2024 1 0:37 AM CDT Body Mass Index 23.41 10/31/2024 10:37 AM CDT Plan of Treatment Not on file Medical Devices Implanted Type Area Gill Box Operator Device Identifier Shelf Expiration Date Model / Serial / Lot Bard Peripheral Vascular [id number] Ultraclip Bard 17ga 12cm 2 Trigger Permanent Ultrasound - [id number] - [id number] Implanted:Qty: 1 on 05/09/2020 by Oc Amin MD at [facility] Breast Left: Breast Bard Peripheral Vascular 11/05/2022 [id number] / [id number] / Bard Peripheral Vascular [id number] Ultraclip Bard 17ga 10cm 2 Trigger Permanent Ultrasound - [id number] - [id number] Implanted:Qty: 1 on 05/09/2020 by Oc Amin MD at [facility] Breast Left: Breast Bard Peripheral Vascular 12/05/2022 [id number] / [id number] / Procedures Procedure Name Priority Date/Time Associated Diagnosis Comments EGFR Routine 11/28/2024 11:10 AM CDT DIFFERENTIAL AUTO Routine 11/28/2024 11:10 AM CDT IRON PROFILE W/ IBC Routine 11/28/2024 11:10 AM CDT URIC ACID Routine 11/28/2024 11:10 AM CDT 1,25 DIHYDROXYCHOLECALCIFEROL Routine 11:10 AM CDT PTH Routine 11/28/2024 11:10 AM CDT RENAL FUNCTION PANEL Routine 11/28/2024 11:10 AM CDT CBC WITH AUTO DIFFERENTIAL Routine 11/28 11:10 AM CDT POCT HEMOGLOBIN A1C Routine 10/31/2024 10:40 AM CDT 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 disease not on chronic dialysis, with long-term current use of insulin (HCC) POCT GLUCOSE Routine 10/31/2024 10:38 AM CDT 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 disease not on chronic dialysis, with long-term current use of insulin (HCC) SCAN - RADIOLOGY/IMAGING 10/17/2024 SCAN - RADIOLOGY/IMAGING 10/15/2024 SCAN - LABS 10/14/2024 SCAN - RADIOLOGY/IMAGING 10/14/2024 EGFR Routine 09/12/2024 9:00 AM CDT Dyslipidemia associated with type 2 diabetes mellitus (HCC) Hypertension associated with diabetes (HCC) DIFFERENTIAL AUTO Routine 09/12/2024 9:00 AM CDT Dyslipidemia associated with type 2 diabetes mellitus (HCC) Hypertension associated with diabetes (HCC) CBC WITH AUTO DIFFERENTIAL Routine 09/12 9:00 AM CDT Dyslipidemia associated with type 2 diabetes mellitus (HCC) Hypertension associated with diabetes (HCC) COMPREHENSIVE METABOLIC PANEL Routine 9:00 AM CDT Dyslipidemia associated with type 2 diabetes mellitus (HCC) Hypertension associated with diabetes (HCC) LIPID PANEL Routine 09/12/2024 9:00 AM CDT Dyslipidemia associated with type 2 diabetes mellitus (HCC) Hypertension associated with diabetes (HCC) COLONOSCOPY 08/24/2024 7:16 AM CDT HM DIABETES EYE EXAM Routine 08/19/2024 8:56 AM CDT ALBUMIN CREATININE RATIO, URINE Routine 02/23/2024 12:10 PM CDT DEXA AXIAL SKELETON BONE DENSITY 1 OR MORE SITES Schedule Routine, Read Routine (OP Routine) 04/03/2023 12:42 PM FABRICATION LEAD At high risk for osteoporosis Age-related osteoporosis without current pathological fracture SCREENING MAMMOGRAM RIGHT W [place] UNILATERAL ONLY Schedule Routine, Read Routine (OP Routine) 03/28/2022 2:03 PM FABRICATION LEAD Personal history of breast cancer Encounter for screening mammogram for malignant neoplasm of breast SERUM HEPATITIS C AB Routine 01/29/2015 11:36 AM CDT from Last 3 Months or Most Recently Relevant to Health Maintenance Results * (ABNORMAL) eGFR (11/28/2024 11:10 AM CDT) eGFR 11(L) >=60 mL/min/1. 73 m2 Comment: Interpretive Data [...] interpretive data was last reviewed 2021. Blood 11/28/2024 11:1 0 AM CDT 11/28/2024 12:28 PM CDT us Ashu Arevalo MD LAB BLOOD ORDERABLES Fin al Result [facility] Department [place] [address] * Differential, auto (11/28/2024 11:10 AM CDT) Pathologist [facility] Neutrophil abs 5.55 1.50 - 6.50 K/cumm Imm gran abs 0.04 0.00 - 0.10 K/cumm [facility] ([facility]) Lymphocyte abs 1.04 0.80 - 3.30 K/cumm [facility] ([facility]) Monocyte abs 0.59 0.20 - 0.80 K/cumm [facility] ([facility]) Eosinophil abs 0.10 0.00 - 0.50 K/cumm [facility] ([facility]) Basophil abs 0.04 0.00 - 0.10 K/cumm [facility] ([facility]) Neutrophil pct 75.5 % [facility] (ERAS[facility]) Comment: Interpretive Data Percent cell count reference ranges are not reported, since discordance with absolute values may lead to misinterpretation of CBC data. Current Interpretive Data was last revised on 2017. Imm gran pct 0.5 % [facility] ([facility]) Comment: Interpretive Data Percent cell count reference ranges are not reported, since discordance with absolute values may lead to misinterpretation of CBC data. Current Interpretive Data was last revised on 2017. Lymphocyte pct 14.1 % [facility] ([facility]) Comment: Interpretive Data Percent cell count reference ranges are not reported, since discordance with absolute values may lead to misinterpretation of CBC data. Current Interpretive Data was last revised on 2017. Monocyte pct 8.0 % [facility] ([facility]) Comment: Interpretive Data Percent cell count reference ranges are not reported, since discordance with absolute values may lead to misinterpretation of CBC data. Current Interpretive Data was last revised on 2017. Eosinophil pct 1.4 % [facility] ([facility]) Comment: Interpretive [...] Data was last revised on 2017. Blood 11/28/2024 11:1 0 AM CDT 11/28/2024 12:28 PM CDT us Ashu Arevalo MD LAB BLOOD ORDERABLES Fin al Result O[facility] (ERASMO) 1 [facility] Department [place] [address] * Iron profile w/ IBC (11/28/2024 11:10 AM CDT) Iron 84 35 - 145 mcg/dL SOMIN ESTR[facility] (ERASMO) TIBC 261 250 - 400 mcg/dL [facility] ([facility]) Transferrin saturation 32 20 - 50 % [facility] ([facility]) Blood 11/28/2024 11:1 0 AM CDT 11/28/2024 12:28 PM CDT us Ashu Arevalo MD LAB BLOOD ORDERABLES Fin al Result Performing Organization Address City/[facility]/ZIP Co de Phone Number [facility] (ERASMO) 1 [facility] Department [place] [address] * (ABNORMAL) CBC with auto differential (11/28/2024 11:10 AM CDT) WBC 7.36 3.80 - 9.90 K/cumm Hgb 9.8(L) 11.9 - 15.5 g/dL [facility] ([facility]) Hct 30.9(L) 35.6 - 45.5 % [facility] ([facility]) Plt 297 150 - 400 K/cumm [facility] ([facility]) MPV 9.5 9.1 - 12.3 fL [facility] ([facility]) RBC 3.32(L) 3.90 - 5.20 M/cumm [facility] ([facility]) MCV 93.1 81.3 - 96.4 fL [facility] ([facility]) MCH 29.5 27.1 - 33.3 pg [facility] ([facility]) MCHC 31.7(L) 32.3 - 35.7 g/dL [facility] ([facility]) RDW CV 15.0(H) 11.1 - 14.9 % [facility] ([facility]) RDW SD 50.9(H) 35.7 - 48.1 fL [facility] ([facility]) NRBC abs 0.00 0.00 - 0.01 K/cumm [facility] ([facility]) Blood 11/28/2024 11:1 0 AM CDT 11/28/2024 12:28 PM CDT us Ashu Arevalo MD LAB BLOOD ORDERABLES Fin al Result Performing Organization Address City/[facility] Co de Phone Number OSMIN ESTRADA ([place]LLINS) 1 [place] [address] * (ABNORMAL) 1,25 Dihydroxycholecalciferol (11/28/2024 11:10 AM CDT) 1-25-di-OH Vit D <8.0(L) 18 - 78 pg/mL [facility] Comment: ADDITIONAL INFORMATION This test was developed and its performance characteristics determined by [facility] in a manner consistent with CLIA requirements. This test has not been cleared or approved by the U.S. Food and Drug Administration. Test Performed by: [address] [address] [employer] Supervisor: Starr Jones Ph.D.; CLIA# [id number] Blood 11/28/2024 11:1 0 AM CDT 11/28/2024 12:28 PM CDT Ashu Arevalo MD LAB BLOOD ORDERABLES Fin al Result Performing Organization Address City/[facility] Co de Phone Number OSMIN [facility] ([place]) 1 [place] [address] [facility] * Uric acid (11/28/2024 11:10 AM CDT) Uric acid 6.3 2.5 - 7.0 mg/dL [facility] ([place]) Blood 11/28/2024 11:1 0 AM CDT 11/28/2024 12:28 PM CDT Ashu Arevalo MD LAB BLOOD ORDERABLES Fin al Result Performing Organization Address City/[facility]/ZIP Co de Phone Number OSMIN ESTRADA ([place]) 1 [facility] [place] [address] * (ABNORMAL) PTH (11/28/2024 11:10 AM CDT) PTH 106(H) 18 - 58 pg/mL [facility] ([facility]) Blood 11/28/2024 11:1 0 AM CDT 11/28/2024 12:28 PM CDT us Ashu Arevalo MD LAB BLOOD ORDERABLES Fin al Result [facility] ([facility]) 1 [facility] Department [place] [address] * (ABNORMAL) Renal function panel (11/28/2024 11:10 AM CDT) Sodium 138 135 - 145 mmol/L [facility] ([facility]) Potassium, pl 3.9 3.3 - 4.9 mmol/L [facility] ([facility]) Chloride 102 97 - 110 mmol/L [facility] ([facility]) CO2 25 22 - 32 mmol/L [facility] ([facility]) Anion gap 11 2 - 15 mmol/L [facility] ([facility]) BUN 65(H) 6 - 25 mg/dL [facility] ([facility]) Creatinine 4.16(H) 0.60 - 1.10 mg/dL [facility] ([facility]) Glucose 108 70 - 199 mg/dL [facility] ([facility]) [...] interpretive data was last revised 2022. Calcium 8.9 8.5 - 10.3 mg/dL [facility] ([facility]) Phosphorus, pl 4.0 2.3 - 4.5 mg/dL [facility] ([facility]) Albumin 3.6 3.5 - 5.0 g/dL [facility] ([facility]) Blood 11/28/2024 11:1 0 AM CDT 11/28/2024 12:28 PM CDT Ashu Arevalo MD LAB BLOOD ORDERABLES Fin al Result [facility] ([place]) 1 [facility] Department [place] [address] * (ABNORMAL) POCT hemoglobin A1c (10/31/2024 10:40 AM CDT) Hemoglobin A1C, POC 6.3(A) 4.0 - 5.6 % Blood 10/31/2024 10:4 0 AM CDT Inna Yepez COMPUTER LAB ASSISTANT POINT OF CARE TEST ORDERABLES F inal Result * POCT glucose (10/31/2024 10:38 AM CDT) Glucose Blood, POC 190 Normal Fasting 70 - 100, Random <200 mg/dL Blood 10/31/2024 10:3 8 AM CDT Inna Yepez COMPUTER LAB ASSISTANT POINT OF CARE TEST ORDERABLES F inal Result * SCAN - RADIOLOGY/IMAGING (10/17/2024) Anatomical Region Laterality Modality Other us Provider Scanning Final Result * SCAN - RADIOLOGY/IMAGING (10/15/2024) Anatomical Region Laterality Modality Other us Provider Scanning Final Result * SCAN - RADIOLOGY/IMAGING (10/14/2024) Anatomical Region Laterality Modality Other us Provider Scanning Edited Result - Final * SCAN - LABS (10/14/2024) us Provider Scanning Final Result * (ABNORMAL) eGFR (09/12/2024 9:00 AM CDT) [...] 9:00 AM CDT 09/12/2024 9:45 AM CDT Lata Corral NP LAB BLOOD ORDERABLES Final Result [facility] ([place]) 1 [facility] Department [place] [address] * Differential, auto (09/12/2024 9:00 AM CDT) [...] AM CDT 09/12/2024 9:45 AM CDT us Lata Corral NP LAB BLOOD ORDERABLES Final Result [facility] ([place]) 1 [facility] Department of Laboratories [place], [place] [id number] * (ABNORMAL) CBC with auto differential (09/12/2024 [...] 9:00 AM CDT 09/12/2024 9:45 AM CDT Lata Corral NP LAB BLOOD ORDERABLES Final Result [facility] ([facility]) 1 [facility] Department [place] [address] * Lipid panel (09/12/2024 9:00 AM CDT) [...] on 2017. Triglycerides 134 <=149 mg/dL O[facility] (ERASMO) Comment: Interpretive [...] on 2017. HDL 54 >=40 mg/dL OSMIN [facility] (ERASMO) Comment: Interpretive Data Ages < or [...] 2017. LDL, calculated 102 <=129 mg/dL O[facility] (ERASMO) Comment: Interpretive Data Ages < or = 19 years Acceptable: <110 mg/dL Borderline high: 110-129 mg/dL High: >or= 130 mg/dL Ages > or = 20 years Optimal: <100 mg/dL Near optimal: 100-129 mg/dL Borderline high: 130-159 mg/dL High: >160 mg/dL Calculated using the Edgar LDL-C estimating equation. This equation was implemented on 2023. Prior to this date LDL-C was estimated using the Friedewald equation. Literature References: 1. Expert Panel on Integrated Guidelines for Cardiovascular Health and Risk Reduction in Children and Adolescents. Pediatrics 2011;128:S213 2. NCEP Expert Panel. Circulation 2004;110:227 3. Edgar Yusuf et al. JONO Cardiol. 2020 September 08;5(5):540-548. doi: 10.1001/jamacardio.2020.0013 Current Interpretive Data was last revised on 2023. Non-HDL Cholesterol 126 mg/dL [facility] ([facility]) Comment: Interpretive Data Ages < or [...] revised on 2017. Chol/HDL ratio 3 [facility] ([facility]) Blood 09/12/2024 9:00 AM CDT 09/12/2024 9:45 AM CDT Lata Corral COMPUTER LAB ASSISTANT LAB BLOOD ORDERABLES Final Result O[facility]IN [facility] (ERASMO) 1 [facility] Department of Laboratories [place] [id number] * (ABNORMAL) Comprehensive metabolic panel (09/12/2024 9:00 AM CDT) Sodium 137 135 - 145 mmol/L Potassium, pl 4.9 3.3 - 4.9 mmol/L [facility] (ERAS[facility]) Chloride 103 97 - 110 mmol/L [facility] ([facility]) CO2 21(L) 22 - 32 mmol/L [facility] ([facility]) Anion gap 13 2 - 15 mmol/L [facility] ([facility]) BUN 65(H) 6 - 25 mg/dL [facility] (ER[facility]) Creatinine 3.33(H) 0.60 - 1.10 mg/dL [facility] (ERAS[facility]) Glucose 79 70 - 199 mg/dL [facility] (ERASMO) Comment: Interpretive Data Fasting glucose [...] AM CDT 09/12/2024 9:45 AM CDT us Lata Corral NP LAB BLOOD ORDERABLES Final Result O[facility]IN [facility] (ERASMO) 1 [facility] Department [place] [address] * Colonoscopy (08/24/2024 7:16 AM CDT) Anatomical Region Laterality Modality Other Narrative Procedure Note Nathan Brooks DO - 08/24/2024 7:16 AM CDT [facility] Patient Name: Dana Atkins Procedure Date: 08/24/2024 7:16 AM Date of : 1955 Admit Type: Outpatient Age: 68 Gender: Female Attending MD: Nathan Brooks D.O. Room: [facility] ENDOSCOPY ROOM 3 Note Status: Finalized Patient [...] immediately with the 2nd glass ofwater. Florastor Joppel per labelinstructions. MiraLax 1 capful 1-2 times [...] passed under direct vision. The Pediatric Colonoscope [id number] was introduced through the anus and advanced [...] 7:16 AM Procedure Code(s): --- Professional --- 00251, Colonoscopy, flexible; with biopsy, single or multiple --- Technical --- 72239, Colonoscopy, flexible; with biopsy, single or multiple [...] perforation orabscess without bleeding CPT copyright 2020 [employer]. All rights reserved. The codes documented in this report are preliminary and upon cone worker reviewmay be revised to meet current compliance requirements. Recognized by the [employer] for promoting quality in endoscopy Nathan Brooks DO ENDOSCOPY PROCEDURES Final Res ult * (ABNORMAL) DIABETES EYE EXAM (08/19/2024 8:56 AM CDT) Impressions Rose Mary Hartman, MA - 08/19/2024 8:56 AM CDT Positive for non-proliferative diabetic retinopathy. Historical Provider HEALTH MAINTENANCE Edited Result - Final * (ABNORMAL) Albumin Creatinine Ratio, Urine (02/23/2024 12:10 PM CDT) Albumin Ur 1,424.9 mg/L Comment: Interpretive Data No reference range established. Current interpretive data was last revised 2018. Testing performed by: [facility], [address] [place] [address]., [id number] Creatinine Ur 128.1 mg/dL OSMIN ESTRADA (ERASMO) Comment: Interpretive Data No reference range established. Current interpretive data was last revised 2018. Testing performed by: [facility], [address] [place] [address]., [address] Albumin Creatinine Ratio, Ur 1,112(H) 1 - 29 mg/g O[facility] (ERASMO) Comment:Testing performed by : [facility], [address] [place] [address]., [address] Urine 02/23/2024 12:1 0 PM CDT 02/23/2024 9:33 PM CDT Ashu Arevalo MD LAB URINE ORDERABLES Fin al Result OSMIN ESTRADA (ERASMO) 1 [facility] Department [place] [address] * Dexa Axial Skeleton Bone Density 1 or 2 Site (04/03/2023 12:42 PM FABRICATION LEAD) Anatomical Region Laterality Modality Body N/A Other 04/03/2023 1:05 PM FABRICATION LEAD Narrative 04/03/2023 1:05 PM FABRICATION LEAD EXAM DESCRIPTION: DEXA AXIAL SKELETON BONE DENSITY 1 OR MORE SITES REASON FOR STUDY: 67 y/o year old F with given history of: history of AI therapy Osteoporosis screening Post menopausal Gill Box Operator/Model: Verican Discovery SL ([id number]/N [id number]) CLINICAL INFORMATION: Current height: 65 inches Maximum [...] Electronically signed by Vini Kaur M.D. MF: TOBNI Report ID: [id number] Reading Location: [place] [address] Procedure Note Vini Kaur MD - 04/03/2023 EXAM DESCRIPTION: DEXA AXIAL SKELETON BONE DENSITY 1 OR MORE SITES REASON FOR STUDY: 67 y/o year old F with given history of: history ofAI therapy Osteoporosis screening Post menopausal Gill Box Operator/Model: Verican Discovery SL (S/N [id number]) CLINICAL INFORMATION: Current height: 65 inches Maximum [...] Vini Kaur M.D. MF: TOBIN Report ID: [id number] Reading Location: [id number] Shaniqua Friaseleanor ENGEL IMG DXA PROCEDURES Fi nal Result * Screening Mammogram Right W Wesley Unilateral Only (03/28/2022 2:03 PM FABRICATION LEAD) Anatomical Region Laterality Modality Breast Right Mammography Narrative 03/28/2022 3:58 PM FABRICATION LEAD Mammogram Technique: Right Breast Digital Breast Tomosynthesis, Unilateral C-view 2D Screening mammogram. Views obtained: bilateral craniocaudal and bilateral mediolateral oblique. Computer Aided Detection was performed. Mammogram Findings: The present examination has been compared to prior imaging studies performed on 02/16/2020, at [facility]. [facility] on 04/17/2020 and 05/09/2020, and at [facility] on 03/22/2021. The breast is heterogeneously dense, [...] prior imaging studies performed on 02/16/2020, at [facility]. [facility] on 04/17/2020 and 05/09/2020, and at [facility] on 03/22/2021. The breast is heterogeneously dense, [...] Most Recently Relevant to Health Maintenance Insurance [facility] UHC MEDICARE [facility] Address: [address] [address] [place] [address] [facility] MEDICARE [facility] Address: [address] [address] [place] [address] [facility] MEDICARE [facility] Address: [address] [address] [place] [address] Advance Directives For more information, please contact: [phone] * Full Code (Latest Code Status on [...] 8:34 AM 10/18/2018 8:35 AM Care Teams Laborer Livestock Relationship Specialty Start Date End Date Vijay Truong MD [address] [place] [address] PCP - General 08/08/16 Rubén Miranda MD PhD [address] [place] [address] Radiation Oncologist Radiation Oncology 07/27/20 Lila James MD [address] [address] Referring Physician Surgical Oncology 07/27/20 Emile Berger MD [address] [place] [address] Referring Physician Psychiatry & Neurology 02/05/22 Ash Fraga MD [address] [place] [address] Medical Oncologist/Sanitarian Inspector Hematology and Oncology 06/11/22
--- OUTSIDE RECORDS SUMMARY | 2024-12-07 14:03 | XMS_ITS | Encounter Summary ---
Author Organization [facility] Address [address] [place] [address] Care Team Providers Care Theology Professor Name Role Phone Vijay Truong MD Primary Care Provider [phone] Rubén Miranda MD PhD Unavailable [phone] Lila James MD Unavailable [phone] Emile Berger MD Unavailable [phone] Ash Fraga MD Unavailable [phone] Reason for Visit * Reason Onset Date Comments Cellulitis 12/07/2024 Encounter Details Date Type Department Care Team (Late st Contact Info) Description 12/07/2024 Nurse Triage [facility] [address] [place] [address] Vijay Truong MD [address] [place] [address] Social History Tobacco Use Types Packs/Day Years [...] week 06/26/2022 How often do you attend [facility] or zoroastrian services? More than 4 times per year 06/26/2022 Do you belong to any clubs o r organizations such as gnosticist groups, unions, fraternal or athletic groups, or [...] place to sleep or slept in a snf (including now)? 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 Pt reports a wound quarter size to the anterior forearm, with scratches on the posterior forearm from pt scratching arm . Redness and swelling extends just above elbow and to wrist. Pt feels like her fingers are starting to swell as well. Denies fever but had cold chills. Pt has hx of cellulitis to the arm in October with a hospitalization for cellulitis and pneumonia. Pt rates pain in the arm 07/18 Provider contacted via secure chat for ED disposition consult. Recommendation from provider:Other: UC/ED .Pt advised and agrees.Advised call back with further needs. Disposition Go to ED/UCC Now (or to Office With PCP Approval) Reason for Disposition Patient sounds very sick or weak to the triager No Initial Assessment on file. No Additional Information on file. Protocols Used Wound Infection Chblooduw-Mffha-OH * Telephone Encounter - Maribel Leblanc RN - 12/07/2024 11:27 AM CDT Regarding: Circulation Concerns- Cellulitis left arm-swollen, red, mild-moderate painful, warm to the touch ----- Message from Emi Gamboa sent at 12/07/2024 11:25 AM CDT ----- Symptom Based Call Chief Complaint(s): Circulation Concerns- Cellulitis left arm-swollen, red, mild-moderate painful, warm to the touch Duration: a few weeks What type of symptom(s) is the patient experiencing? Red Flag. Is the patient concerned they are experiencing a medical emergency requiring an ambulance? 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 Kumar provided verbal auth to speak with Leo. NIRMAL 10/25/24 for cellulitis. Symptoms are worsening since completing antibiotics: Both are concerned about circulation- left are is noticeably swollen, red, painful, warm to the touch. Leo would like discuss to the calcitRIOL (ROCALTROL) 0.25 mcg capsule and any changes that have occurred with this medication. It appears there was a medication question/clarification message routedto practice clinical mcadoo within the last 20 mins. Leo was advised a member of Dr. Truong clinical team would call him as soon as they can to discuss the medication. Does message need to be routed? Yes-Action Needed documented in this encounter Plan of Treatment Not on file documented as of this encounter Visit Diagnoses Not on filedocumented in this encounter Care Teams Theology Professor Relationship Specialty Start Date End Date Vijay Truong MD [address] [place] [address] PCP - General 08/08/16 Rubén Miranda MD PhD [address] [place] [address] Radiation Oncologist Radiation Oncology 07/27/20 Lila James MD [address] [address] Referring Physician Surgical Oncology 07/27/20 Emile Berger MD [address] [place] [address] Referring Physician Psychiatry & Neurology 02/05/22 Ash Fraga MD [address] [place] [address] Medical Oncologist/Qa Analyst Hematology and Oncology 06/11/22 documented as of this encounter
--- OUTSIDE RECORDS SUMMARY | 2024-12-07 14:03 | XMS_ITS | Clinical Summary ---
Author Organization [facility] Address [address] [place] [id number] Care Team Providers Care Scrap Drop Engineer Name Role Phone Vijay Truong MD Primary Care Provider [phone] Rubén Miranda MD PhD Unavailable [phone] Lila James MD Unavailable [phone] Emile Berger MD Unavailable [phone] Ash Fraga MD Unavailable [phone] Allergies No known active allergies Medications blood-glucose meter kit Use to test blood sugar once daily. 1 each 04/07/20 18 Active hydrOXYzine (VISTARIL) 50 mg capsuleIndications: Type 2 diabetes mellitus with hyperglycemia, with long-term current use of insulin ([facility]) 06/16/19 23 Active lancets miscIndications:Typ e 2 [...] of insulin, macular edema presence unspecified (HCC) Use to inject once nightly. E11.65 100 [...] coma, with long-term current use of insulin ([facility]) Inject 14 Units under the skin nightly E11.65 15 mL 11 11/30/19 25 Active calcitRIOL (ROCALTROL) 0.25 mcg capsule Take 1 capsule (0.25 mcg total) by mouth 03/02/20 24 025 Disconti nued(Reo rder) insulin glargine 100 unit/mL (3 mL) pen for injectionIndication s:Type 2 diabetes mellitus with hypoglycemia without coma, with long-term current use of insulin ([facility]) Inject 17 Units under the skin nightly E11.65 15 mL 11/01/19 25 025 Disconti nued(Reo rder) Active [...] 03/17/2024 Assessment & Plan (03/17/2024 7:38 AM ARCHITECTURAL DESIGN LECTURER): Stable. Following with pulmonology and will continue [...] monitor. Assessment & Plan (04/27/2024 1:21 PM ARCHITECTURAL DESIGN LECTURER): This is a chronic condition which is not at goal on arrival. At goal after rest. Goal is less than 140/90 Continue lisinopril, Lasix Encouraged to monitor weight and B/P at home. Assessment & Plan (03/17/2024 7:39 AM ARCHITECTURAL DESIGN LECTURER): Normotensive. Continue lisinopril. Will continue to monitor. Colon cancer screening 03/17/2024 Assessment & Plan (03/17/2024 7:39 AM ARCHITECTURAL DESIGN LECTURER): Referral to GI for screening colonoscopy placed History of colonic polyps 03/17/2024 Encounter for screening colonoscopy 03/17/2024 Anemia of chronic renal failure, stage 4 (severe ) 03/07/2024 Assessment & Plan (09/15/2024 1:29 PM CDT): Renal function stable. Anemia improving. Continues following closely with Nephrology. Assessment & Plan (03/17/2024 7:36 AM ARCHITECTURAL DESIGN LECTURER): Stable. Following with Nephrology and will continue to do so. 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 We reviewed medications, [...] 21 Assessment & Plan (04/09/2021 5:57 PM ARCHITECTURAL DESIGN LECTURER): Vaccine given in office today. Reviewed possible [...] cooking Assessment & Plan (05/16/2022 5:25 PM ARCHITECTURAL DESIGN LECTURER): Weights stable. Working on diet and exercise, previously riding stationary bike. Assessment & Plan (01/17/2022 10:16 AM CDT): Discussed healthy diet and importance of regular physical activity. Assessment & Plan (10/13/2021 1:35 PM CDT): Congratulated patient on her efforts to improve diet. Discussed healthy diet and importance of regular physical activity. Assessment & Plan (07/11/2021 11:00 AM ARCHITECTURAL DESIGN LECTURER): Discussed healthy diet and importance of regular physical activity. Assessment & Plan (04/09/2021 5:57 PM ARCHITECTURAL DESIGN LECTURER): Discussed healthy diet and importance of regular [...] bedtime. Assessment & Plan (05/17/2020 1:10 PM ARCHITECTURAL DESIGN LECTURER): Omeprazole refilled. Reviewed provocative foods to avoid: caffeine, citrus, ETOH, carbonated drinks, fried/fatty/fast foods & rich/creamy sauces. Reviewed diet/exercise recommendations: 20-30min physicaly activity daily at minimum. Reviewed med Ses & scheduling. Weight loss will help improve GERD sxs. Keep HOB elevated 30 degrees & not eat 2-3 hrs before bedtime. Regional lymph node metastasis present Assessment & Plan (05/17/2020 1:09 PM ARCHITECTURAL DESIGN LECTURER): L axillary lymph node. Anxious re: new L breast ca dx. Anxious re: pending treatments. Discussed at length during appt. Copies of recent screening/diagnostic mamm & ultrasound of L breast given to mrs Mejia. Discussed lymph node involvement. Referral placed to Dr James at [facility]. Aware that her office will [...] CDT): Assessment & Plan (04/09/2021 6:01 PM ARCHITECTURAL DESIGN LECTURER): Follows with oncology, continues letrozone. To have [...] necessary. Assessment & Plan (05/17/2020 1:08 PM ARCHITECTURAL DESIGN LECTURER): Anxious re: new L breast ca dx. Anxious re: pending treatments. Discussed at length during appt. Copies of recent screening/diagnostic mamm & ultrasound of L breast given to mrs Mejia. Discussed lymph node involvement. Referral placed to Dr James at [facility]. Aware that her office will [...] continue. Assessment & Plan (04/27/2024 1:21 PM ARCHITECTURAL DESIGN LECTURER): This is a chronic condition which is at goal . Goal is LDL less than 70 Continue atorvastatin Encouraged to eat healthy, include fresh fruits and vegetables daily and avoid eating fried foods more than once per week. Assessment & Plan (03/17/2024 7:36 AM ARCHITECTURAL DESIGN LECTURER): Stable. Continue atorvastatin. Tolerating without side effects. Will continue to monitor. Assessment & Plan (01/13/2024 12:49 PM CDT): This is a chronic condition which is at goal . Goal is LDL less than 70 Continue atorvastatin Encouraged to eat healthy, include fresh fruits and vegetables daily and avoid eating fried foods more than once per week. Assessment & Plan (04/06/2023 3:43 PM ARCHITECTURAL DESIGN LECTURER): This is a chronic condition which is [...] prescribed. Assessment & Plan (06/19/2022 2:10 PM ARCHITECTURAL DESIGN LECTURER): This is a chronic condition which is not at goal of LDL less than 70 Continue atorvastatin Encouraged to eat healthy, include fresh fruits and vegetables daily and avoid eating fried foods more than once per week. Encouraged to take medications as prescribed. Assessment & Plan (05/16/2022 5:17 PM ARCHITECTURAL DESIGN LECTURER): Continue current regimen. Assessment & Plan (01/17/2022 10:16 AM CDT): 01/10/22 TC 186 TRG 421 HDL 29 LDL 90 Continue current regimen, recommended fish oil supplementation and following low fat diet. Will repeat labs prior to next office visit. Assessment & Plan (10/13/2021 1:35 PM CDT): Continue atorvastatin daily. Assessment & Plan (07/11/2021 11:16 PM ARCHITECTURAL DESIGN LECTURER): Reviewed previous lipid panel. Doing well on atorvastatin 40 mg daily, denies any medication side effects. Assessment & Plan (04/09/2021 6:00 PM ARCHITECTURAL DESIGN LECTURER): Results for orders placed or performed in [...] & Plan (08/16/2020 11:24 AM CDT): 12/22/18 AA=673 HDL=43 BV=509 LDL=88 TC/HDL=4.74 07/04/19 TC=78 HDL=32 VX=426 VLZ=696 TC/HDL=10.3 11/07/19 NC=331 DL=27 NK=539 FON=129 CALC TC/HDL=12.0 to lab 02/09/20 MC=597 HDL=38 SW=974 LDL=92 TC/HLD=5.0 The 10-year ASCVD risk score [...] flags. Assessment & Plan (05/17/2020 1:10 PM ARCHITECTURAL DESIGN LECTURER): We will check labs and make adjustments [...] exams. Assessment & Plan (05/16/2022 5:23 PM ARCHITECTURAL DESIGN LECTURER): Lab Results Component Value Date HGBA1C 9.9 [...] 04/09/2021 Assessment & Plan (07/11/2021 11:17 PM ARCHITECTURAL DESIGN LECTURER): Lab Results Component Value Date HGBA1C 10.5 [...] hypo/hypergylcemia. Assessment & Plan (04/09/2021 6:08 PM ARCHITECTURAL DESIGN LECTURER): Lab Results Component Value Date HGBA1C 9.7 [...] 1000mg bid. GFR 11/07/19=35 GFR 02/09/20=35 GFR 1/7/21=31 Will stop metformin & switch to glipizide [...] month Assessment & Plan (05/17/2020 1:09 PM ARCHITECTURAL DESIGN LECTURER): Lab Results Component Value Date HGBA1C 9.6 [...] evaluation. Last eye exam december 2018 at [facility]. Letter sent to get copy of results [...] Lasix Assessment & Plan (04/06/2023 3:42 PM ARCHITECTURAL DESIGN LECTURER): This is a chronic condition which is [...] atorvastatin. Assessment & Plan (06/19/2022 2:08 PM ARCHITECTURAL DESIGN LECTURER): This is a chronic condition which is [...] regimen. Assessment & Plan (04/06/2023 3:43 PM ARCHITECTURAL DESIGN LECTURER): This is a chronic condition which is [...] prescribed. Assessment & Plan (06/19/2022 2:09 PM ARCHITECTURAL DESIGN LECTURER): This is a chronic condition which is at goal of less than 140/90 Hypotension 94/48 Personally reviewed labs. Decrease lisinopril to 10 mg p.o. daily Encouraged to take medications as prescribed. Assessment & Plan (05/16/2022 5:23 PM ARCHITECTURAL DESIGN LECTURER): Blood pressure well controled today. No changes in current regimen. Assessment & Plan (01/17/2022 10:14 AM CDT): Condition is stable Discussed/ordered labs, encouraged healthy, low carbohydrate lifestyle and at least 150min/week of exercise, continue on lisinopril 20 mg daily. BP checked by myself 118/80 Assessment & Plan (10/13/2021 1:41 PM CDT): Stable; continue current medication regimen. Assessment & Plan (07/11/2021 11:17 PM ARCHITECTURAL DESIGN LECTURER): BP well controlled today. No changes in current medication regimen. Assessment & Plan (04/09/2021 6:10 PM ARCHITECTURAL DESIGN LECTURER): Patient encouraged to take BP medication as [...] received. Assessment & Plan (05/17/2020 1:09 PM ARCHITECTURAL DESIGN LECTURER): Does not check BP at home. The [...] (09/29/2018): Added automatically from request for surgery [id number] Fibromyalgia 01/01/2017 Assessment & Plan (03/17/2024 7:36 AM ARCHITECTURAL DESIGN LECTURER): Stable on duloxetine. No changes. Will continue [...] day Assessment & Plan (07/11/2021 11:04 AM ARCHITECTURAL DESIGN LECTURER): Managed by Dr. Berger at [facility], following up every 3 months. Continues seeing therapist once monthly. Discussed increasing frequency of counseling to once weekly if able. PHQ today 21. Discussed importance of regular exercise/ healthy diet and general healthy lifestyle to improve moods. Lives at home with son and two grandsons. Reports supportive family. Denies any SI/HI. Assessment & Plan (04/09/2021 10:47 AM ARCHITECTURAL DESIGN LECTURER): PHQ=19 (worsening with breast CA diagnosis) Hydroxyzine 25mg q6hr prn, risperidone 2mg nightly, trazodone 100mg nightly, duloxetine DR 60mg daily, amitriptyline 25mg nightly. Managed by Dr Berger at [facility]. Sees him q3mos. Also sees therapist Kay at [facility]. Denies suicidal/homicidal ideation. Assessment & Plan (08/16/2020 11:22 AM CDT): Hydroxyzine 25mg q6hr prn, risperidone 2mg nightly, trazodone 100mg nightly, duloxetine DR 60mg daily, amitriptyline 25mg nightly. Managed by Dr Berger at [facility]. Doing phone visits with him q3mos. Also with therapist Kay at [facility]. Reports good control of depression w/current regimen. No changes to be made at this time. Reviewed med Ses & scheduling. Reviewed red flags. Assessment & Plan (02/09/2020 9:30 AM CDT): Following w/Dr Berger at [facility] every 3 months. following w/monthly therapy appts w/Mellisa Davidson at [facility]. Verified current medications. Will fax lab results to Dr Berger at [facility] once completed. Reports good control of depression w/current regimen. No changes to be made at this time. Reviewed med Ses & scheduling. Reviewed red flags. Assessment & Plan (11/07/2019 10:00 AM CDT): Followed by Dr Berger at [facility]. Reports good control of depression w/current regimen. No changes to be made at this time. Reviewed med Ses & scheduling. Reviewed red flags. Resolved Problems Problem Noted Date Diagnosed Date Resolved Date BMI 27.0-27.9,adult 02/09/2020 08/17/19 21 Assessment & Plan (05/17/2020 1:11 PM ARCHITECTURAL DESIGN LECTURER): Discussed healthy diet and importance of regular [...] healthier, we can set up appointment with graphite mill operator/charcoal kiln burner. 3. Have an active lifestyle, strive for [...] & Plan (11/07/2019 10:01 AM CDT): 12/22/18 KG=084 HDL=43 SJ=008 LDL=88 TC/HDL=4.74 07/04/19 TC=78 HDL=32 NP=262 TCK=844 TC/HDL=10.3 11/07/19 YU=505 DL=27 GK=177 SXX=313 CALC TC/HDL=12.0 Copy of today's lipid panel given to mrs Mejia. Will have tests verified/repeated at lab today. Aware that atorvastatin will need increased if lipid panel elevated. Encounters Date Type Department Care Team Description 12/07/2024 Nurse Triage [facility] [address] [phone] Vijay Truong MD 12/07/2024 Telephone [facility] [address] [phone] Vijay Truong MD Med Refill 11/28/2024 11:00 AM CDT Lab [address] [phone] 11/15/2024 ACO Outreach [facility] Organization [address] [place] [phone] Ama Douglas RN 10/31/2024 11:00 AM CDT Office Visit [facility] Medical [facility] at [address] [place] [phone] Inna Yepez NP Type 2 diabetes mellitus with hypoglycemia without [...] Dexcom continuous glucose monitoring device 10/28/2024 Telephone [facility] at [address] [place] [phone] Inna Yepez NP 10/25/2024 3:00 PM CDT Office Visit [facility] [address] [phone] Lolita Smith NP Hospital discharge follow-up (Primary [...] mammogram for breast cancer; BMI 23.0-23.9, adult 10/25/2024 Telephone [facility] [address] [phone] Any Mauro MA Successful Phone Call ([facility]) 10/20/2024 Telephone [facility] [address] [phone] Vijay Truong MD CARE CREDIT ADVISOR NIRMAL IP 10/20/2024 NIRMAL IP Outreach [facility] Accountable Care Organization [address] [place] [phone] Rose Mary Rosales LPN 10/17/2024 Orders Only [facility] [address] [place] [id number] Scanning, Provider 10/15/2024 Orders Only [facility] Information [facility] [address] [place] [phone] Scanning, Provider 10/14/2024 Orders Only [facility] [address] [place] [phone] Scanning, Provider 10/13/2024 Orders Only [facility] [address] [phone] ProviderRadha MD 09/19/2024 Telephone [facility] [address] [phone] Vijay Truong MD Medical Records Request 09/15/2024 12:30 PM CDT Office Visit [facility] [address] [phone] Lata Corral NP Dyslipidemia associated with type 2 diabetes mellitus (HCC) (Primary Dx); Screening mammogram for breast cancer; Hypertension associated with diabetes (HCC); Anemia of chronic renal failure, stage 4 (severe) (HCC) 09/12/2024 8:55 AM CDT [address] [phone] Dyslipidemia associated with type 2 diabetes mellitus (HCC); Hypertension associated with diabetes (HCC) 09/09/2024 Telephone [facility] [address] [facility] [place] [phone] Inna Lugo MA Labs Requested for Appointment from Last 3 Months Immunizations Immunization Administration Dates Next Due COVID-19 mRNA (Telisma) 0.3 m L (30 mcg) vaccine (12 [...] week 06/26/2022 How often [facility] you attend [facility]? More than 4 times per year 06/26/2022 Do you belong to any clubs o r organizations such as methodist groups, unions, fraternal or athletic groups, or [...] place to sleep or slept in a group home (including now)? No 06/26/2022 PHQ-9 Answer [...] on file Legal Sex Female 12:56 PM ARCHITECTURAL DESIGN LECTURER Gender Identity Female 11/17/2024 4:58 PM CDT Sexual Orientation Straight 11/17/2024 4: 58 PM CDT Obstetrics History Para Term AB IAB SAB [...] 10/31/2024 10:37 AM CDT Plan of Treatment Health Maintenance Due Date Last Done Comments Hepatitis B Screening 12[birth year]20/1973 Breast Cancer Screening-Mammogram 03/28/2023 03/28/2022, 03/22/2021, 02/16/2020, Additional history exists Covid-19 Vaccine (2023-2 5 season) 2024 02/01/2023, 02/06/2022, 04/30/2021, Additional history exists Influenza Vaccine (#1) 2025 , 02/01/2023, 02/01/2023, Additional history exists Albumin Creatinine Ratio, Urine 02/22/2025 02/23/2024, 12/23/2023, 03/11/2022, Additional history exists Well Visit 65+ 03/17/2025 03/17/2024, 0901/2022, 11/07/2019, Additional history exists Osteoporosis Screening-Bone Density Scan 04/03/2025 04/03/2023, 08/20/2020 Foot Exam 04/27/2025 04/27/2024, 090 08/2023, 04/06/2023, Additional history exists Hemoglobin A1C 05/02/2025 10/31/2024, 04/10, 12/23/2023, Additional history exists Dilated Eye Exam 08/19/2025 08/19/2024, 02/2023, 05/20/2022, Additional history exists Lipid Panel 09/12/2025 09/12/2024, 12/09, 10/16/2022, Additional history exists Fall Risk Assessment 09/15/2025 09/15/2024, 03/17/2024, 10/16/2022, Additional history exists Depression Screening 10/25/2025 10/25/2024, 10/25/2024, 03/17/2024, Additional history exists eGFR 11/28/2025 11/28/2024, 050 09/2024, 06/13/2024, Additional history exists Colon Cancer Screening-Colonoscopy 08/24/2029 08/24/2024, 10/18/2018 DTaP/Tdap/Td Vaccine (3 - Td or Tdap) 07/30/2034 07/30/2024, 07/11/2021 Hepatitis C Screening Completed 01/29/2015 Zoster Vaccine Completed 07/13/2020, 04/11, 05/01/2020 Pneumococcal vaccine 65+ Completed 023, 02/12/2016, 12/20/2012, Additional history exists Colon Cancer Screening-CT Colonography Discontinued 08/24/2024, 10/18/2018 Colon Cancer Screening-DNA Stool Discontinued 08/25/19 25, 10/18/2018 Colon Cancer Screening-FIT Discontinued 08/24/2024, Colon Cancer Screening-Sigmoidoscopy Discontinued 08/24/2024, 10/18/2018 Medical Devices Implanted Type Area Irrigationist Device Identifier Shelf Expiration Date Model / Serial / Lot Bard Peripheral Vascular [id number] Ultraclip Bard 17ga 12cm 2 Trigger Permanent Ultrasound - [id number] - [id number] Implanted:Qty: 1 on 05/09/2020 by cO Amin MD at [facility] Breast Left: Breast Bard Peripheral Vascular 11/05/2022 [id number] / [id number] / Bard Peripheral Vascular [id number] Ultraclip Bard 17ga 10cm 2 Trigger Permanent Ultrasound - [id number] - [id number] Implanted:Qty: 1 on 05/09/2020 by Oc Amin MD at [facility] Breast Left: Breast Bard Peripheral Vascular 12/05/2022 [id number] / [id number] / Procedures Procedure Name Priority Date/Time Associated [...] Read Routine (OP Routine) 04/03/2023 12:42 PM ARCHITECTURAL DESIGN LECTURER At high risk for osteoporosis Age-related osteoporosis without current pathological fracture SCREENING MAMMOGRAM RIGHT W [place] UNILATERAL ONLY Schedule Routine, Read Routine (OP Routine) 03/28/2022 2:03 PM ARCHITECTURAL DESIGN LECTURER Personal history of breast cancer Encounter for [...] LAB BLOOD ORDERABLES Fin al Result [facility] ([place]) [address] [facility] Department [place] [address] * Differential, auto (11/28/2024 11:10 AM CDT) Neutrophil abs 5.55 1.50 - 6.50 K/cumm [...] LAB BLOOD ORDERABLES Fin al Result [facility]IN [facility] ([place]) [address] [facility] [place] [address] * Iron profile w/ IBC (11/28/2024 11:10 AM CDT) Iron 84 35 - 145 mcg/dL [facility] ([place]) TIBC 261 250 - 400 mcg/dL [facility] ([place]) Transferrin saturation 32 20 - 50 % [facility] ([place]) Blood 11/28/2024 11:1 0 AM CDT 11/28/2024 12:28 PM CDT us Ashu Arevalo MD LAB BLOOD ORDERABLES Fin al Result Performing Organization Address City/[facility]/ZIP Co de Phone Number [facility] ([place]) [address] [facility] Department [place] [address] * (ABNORMAL) CBC with auto differential (11/28/2024 [...] ORDERABLES Fin al Result Performing Organization Address City/[facility]/ZIP Co de Phone Number [facility]IN [facility] ([place]) [address] [place] [address] * (ABNORMAL) 1,25 Dihydroxycholecalciferol (11/28/2024 11:10 AM CDT) 1-25-di-OH Vit D <8.0(L) 18 - 78 pg/mL [facility] Comment: ADDITIONAL INFORMATION This test was developed and its performance characteristics determined by [facility] in a manner consistent with CLIA requirements. This test has not been cleared or approved by the U.S. Food and Drug Administration. Test Performed by: [facility] [address] [place] [id number] Homogenizer Operator: Starr Jones Ph.D.; CLIA# [id number] Blood 11/28/2024 11:1 0 AM CDT 11/28/2024 12:28 PM CDT us Ashu Arevalo MD LAB BLOOD ORDERABLES Fin al Result Performing Organization Address City/[facility]/ZIP Co de Phone Number [facility] ([place]) [address] [place] [address] [facility] * Uric acid (11/28/2024 11:10 AM CDT) Pathologist [facility] Uric acid 6.3 2.5 - 7.0 mg/dL [facility] ([place]) Blood 11/28/2024 11:1 0 AM CDT 11/28/2024 12:28 PM CDT Ashu Arevalo MD LAB BLOOD ORDERABLES Fin al Result [facility] ([place]) [address] [place] [address] * (ABNORMAL) PTH (11/28/2024 11:10 AM CDT) PTH 106(H) 18 - 58 pg/mL [facility] ([place]) Blood 11/28/2024 11:1 0 AM CDT 11/28/2024 12:28 PM CDT us Ashu Arevalo MD LAB BLOOD ORDERABLES Fin al Result [facility] ([place]) [address] [facility] Department [place] [address] * (ABNORMAL) Renal function panel (11/28/2024 11:10 [...] LAB BLOOD ORDERABLES Fin al Result [facility] ([place] [address] [facility] Department [place] [address] * (ABNORMAL) POCT hemoglobin A1c (10/31/2024 10:40 AM CDT) Hemoglobin A1C, POC 6.3(A) 4.0 - 5.6 % Blood 10/31/2024 10:4 0 AM CDT Inna Yepez PROPERTY ACCOUNTANT POINT OF CARE TEST ORDERABLES F inal Result * POCT glucose (10/31/2024 10:38 AM CDT) Glucose Blood, POC 190 Normal Fasting 70 - 100, Random <200 mg/dL Blood 10/31/2024 10:3 8 AM CDT Inna Yepez PROPERTY ACCOUNTANT POINT OF CARE TEST ORDERABLES F inal [...] NP LAB BLOOD ORDERABLES Final Result [facility] ([place] [address] [facility] Department [place] [address] * Differential, auto (09/12/2024 9:00 AM CDT) Pathologist [facility] Neutrophil abs 6.04 1.50 - 6.50 K/cumm [...] ORDERABLES Final Result [facility] ([place]) [facility] Department [place] [address] * (ABNORMAL) CBC with auto differential (09/12/2024 [...] ORDERABLES Final Result [facility] ([place]) [address] [facility] Department [place] [address] * Lipid panel (09/12/2024 9:00 AM CDT) [...] revised on 2017. Triglycerides 134 <=149 mg/dL [facility] ([place]) Comment: Interpretive Data Ages < [...] CDT 09/12/2024 9:45 AM CDT Lata Corral PROPERTY ACCOUNTANT LAB BLOOD ORDERABLES Final Result [facility] ([place]) [address] [facility] [place] [address] * (ABNORMAL) Comprehensive metabolic panel (09/12/2024 9:00 AM CDT) Sodium 137 135 - 145 mmol/L Potassium, pl 4.9 3.3 - 4.9 mmol/L [facility] ([place]) Chloride 103 97 - 110 mmol/L [facility] ([place]) CO2 21(L) 22 - 32 mmol/L [facility] ([place]) Anion gap 13 2 - 15 mmol/L [facility] ([place]) BUN 65(H) 6 - 25 mg/dL [facility] ([place]) Creatinine 3.33(H) 0.60 - 1.10 mg/dL [facility] ([place]) Glucose 79 70 - 199 mg/dL [facility] ([place]) Comment: Interpretive Data Fasting glucose [...] 6.9 6.5 - 8.5 g/dL [facility] ([place]) Albumin 3.4(L) 3.5 - 5.0 g/dL [facility] ([place]) Alk phos 106 40 - 130 Units/L [facility] ([place]) ALT 13 7 - 45 Units/L [facility] (ERASMO) AST 22 10 - 45 Units/L [facility] (ER[facility]) Blood 09/12/2024 9:00 AM CDT 09/12/2024 9:45 AM CDT us Lata Corral NP LAB BLOOD ORDERABLES Final Result [facility] (ERASMO) 1 [facility] [place] [address] * Colonoscopy (08/24/2024 7:16 AM CDT) Anatomical Region Laterality Modality Other Narrative Procedure Note Nathan Brooks DO - 08/24/2024 7:16 AM CDT [facility] Patient Name: Dana Mejia Procedure Date: 08/24/2024 7:16 AM Date of : 1955 Admit Type: Outpatient Age: 68 Gender: Female Attending MD: Nathan Brooks D.O. Room: [facility] ENDOSCOPY ROOM 3 Note Status: Finalized Patient [...] immediately with the 2nd glass ofwater. [employer] per labelinstructions. MiraLax 1 capful 1-2 times [...] passed under direct vision. The Pediatric Colonoscope [id number] was introduced through the anus and advanced [...] 7:16 AM Procedure Code(s): --- Professional --- 70255, Colonoscopy, flexible; with biopsy, single or multiple --- Technical --- 50076, Colonoscopy, flexible; with biopsy, single or multiple [...] perforation orabscess without bleeding CPT copyright 2020 [employer]. All rights reserved. The codes documented in this report are preliminary and upon precision assembler reviewmay be revised to meet current compliance requirements. Recognized by the [place] for promoting quality [...] Testing performed by: [facility], [address] [place] [address]., [address] Creatinine Ur 128.1 mg/dL [facility] (ERASMO) Comment: Interpretive Data No reference range established. Current interpretive data was last revised 2018. Testing performed by: [facility], [address] [place] [address]., [address] Albumin Creatinine Ratio, Ur 1,112(H) 1 - 29 mg/g [facility]STRADA (ERASMO) Comment:Testing performed by : [facility], [address] [place] [address]., [address] Urine 02/23/2024 12:1 0 PM CDT 02/23/2024 9:33 PM CDT Ashu Arevalo MD LAB URINE ORDERABLES Fin al Result [facility] (ERASMO) 1 [facility] [place] [address] * Dexa Axial Skeleton Bone Density 1 or 2 Site (04/03/2023 12:42 PM ARCHITECTURAL DESIGN LECTURER) Anatomical Region Laterality Modality Body N/A Other 04/03/2023 1:05 PM ARCHITECTURAL DESIGN LECTURER Narrative 04/03/2023 1:05 PM ARCHITECTURAL DESIGN LECTURER EXAM DESCRIPTION: DEXA AXIAL SKELETON BONE DENSITY 1 OR MORE SITES REASON FOR STUDY: 67 y/o year old F with given history of: history of AI therapy Osteoporosis screening 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 MF: TOBIN Report ID: [id number] Reading Location: [place] [address] Shaniquajose Ellison NP IMG DXA PROCEDURES Fi nal Result * Screening Mammogram Right W Wesley Unilateral Only (03/28/2022 2:03 PM ARCHITECTURAL DESIGN LECTURER) Anatomical Region Laterality Modality Breast Right Mammography Narrative 03/28/2022 3:58 PM ARCHITECTURAL DESIGN LECTURER Mammogram Technique: Right Breast Digital Breast Tomosynthesis, Unilateral C-view 2D Screening mammogram. Views obtained: bilateral craniocaudal and bilateral mediolateral oblique. Computer Aided Detection was performed. Mammogram Findings: The present examination has been compared to prior imaging studies performed on 02/16/2020, at [facility]. [facility] on 04/17/2020 and 05/09/2020, and at [facility] on 03/22/2021. The breast is heterogeneously [...] prior imaging studies performed on 02/16/2020, at [facility]. [facility] on 04/17/2020 and 05/09/2020, and at [facility] on 03/22/2021. The breast is heterogeneously [...] Most Recently Relevant to Health Maintenance Insurance [facility] UHC MEDICARE [facility] Address: [address] [address] [place] [address] [facility] MEDICARE [facility] Address: [address] [address] [place] [address] [facility] MEDICARE [facility] Address: [address] [address] [place] [address] Advance Directives For more information, please contact: [phone] * Full Code (Latest Code Status on [...] 8:34 AM 10/18/2018 8:35 AM Care Teams Scrap Drop Engineer Relationship Specialty Start Date End Date Vijay Truong MD [address] [place] [address] PCP - General 08/08/16 Rubén Miranda MD PhD [address] [place] [address] Radiation Oncologist Radiation Oncology 07/27/20 Lila James MD [address] [address] Referring Physician Surgical Oncology 07/27/20 Emile Berger MD [address] [place] [address] Referring Physician Psychiatry & Neurology 02/05/22 Ash Fraga MD [address] [place] [address] Medical Oncologist/Conversion Worker Hematology and Oncology 06/11/22
--- OUTSIDE RECORDS SUMMARY | 2024-12-07 14:03 | XMS_ITS | Encounter Summary ---
Author Organization [facility] Address [address] [place] [address] Care Team Providers Care Hardware Sales Assistant Name Role Phone Vijay Truong MD Primary Care Provider [phone] Rubén Miranda MD PhD Unavailable [phone] Lila James MD Unavailable [phone] Emile Berger MD Unavailable [phone] Ash Fraga MD Unavailable [phone] Reason for Visit * Reason Onset Date Comments Med Refill 12/07/2024 Encounter Details Date Type Department Care Team (Late st Contact Info) Description 12/07/2024 Telephone Family Physicians [facility] [address] [place] [address] Vijay Truong MD [address] [place] [address] Med Refill Social History Tobacco Use Types Packs/Day Years [...] week 06/26/2022 How often do you attend [facility] or amish services? More than 4 times per year 06/26/2022 Do you belong to any clubs o r organizations such as voodoo groups, unions, fraternal or athletic groups, or [...] in a jail (including now)? No 06/26/2022 PHQ-9 Answer Date [...] on file Legal Sex Female 12:56 PM CAM SPECIALIST Gender Identity Female 11/17/2024 4:58 PM CDT Sexual Orientation Straight 11/17/2024 4: 58 PM CDT documented as of this encounter Miscellaneous Notes * Telephone Encounter - Leslie Phan - 12/07/2024 10:57 AM CDT Medication Question/Clarification Medication Name(s)/Dose: calcitRIOL (ROCALTROL) 0.25 mcg capsule What is the question or clarification needed? Patients son called and patient was previously takingthis medication Thursday, Thursday, and Fridays. Recent Rx picked up on 11/21/24 has been changed to every day. Alvaro would like to know if this was intentional and patient should be taking daily or ifit was a mistake and to continue previous instructions of 3 times a week. Please advise If needed, Pharmacy(s) medication(s) should be sent to: On File Additional Comments: NA Does message need to be routed? Yes-Action Needed documented in this encounter Plan of Treatment Not on file documented as of this encounter Visit Diagnoses Not on filedocumented in this encounter Care Teams Hardware Sales Assistant Relationship Specialty Start Date End [place] [address] PCP - General 08/08/16 Rubén Miranda MD PhD [address] [place] [address] Radiation Oncologist Radiation Oncology 07/27/20 [place] [address] [place] [address] Referring Physician Surgical Oncology 07/27/20 Emile Berger MD [address] [place] [address] Referring Physician Psychiatry & Neurology 02/05/22 Ash Fraga MD [address] [place] [address] Medical Oncologist/Sheet Layer Hematology and Oncology 06/11/22 documented as of this encounter
--- OUTSIDE RECORDS SUMMARY | 2024-12-07 14:03 | XMS_ITS | Clinical Summary ---
Author Organization [facility] Facility Address [address] [place] [address] Care Team Providers Care Intermodal Truck Driver Name Role Phone Vijay Truong Primary Care Provider [phone] Allergies No known active allergies Medications * [...] & Plan: Managed by Dr. Berger at [facility], following up every 3 months. Continues seeing therapist once monthly. Discussed increasing frequency of counseling to once weekly if able. PHQ today 21. Discussed importance of regular exercise/ healthy diet and general healthy lifestyle to improve moods. Lives at home with son and two grandsons. Reports supportive family. Denies any SI/HI. Encounters Date Type Department Care Team Description 12/02/2024 Documentation Only [facility], [place] [address] Ashu Arevalo MD 11/29/2024 Documentation Only [facility], [address] [address] Ashu Arevalo MD from Last 3 Months [...] Description 12/09/2024 11:30 AM CDT Office Visit [place] [employer] [facility], [facility] [address] [place] [address] sAhu Arevalo MD [address] [place] [address] Health Maintenance Due Date Last Done Comments Breast Cancer Screening 1955 Colorectal Cancer Screening: Annual FOBT 2006 Colorectal Cancer Screening: Sigmoidoscopy 2006 Pneumococcal Vaccine: 50+ Years (2 of 2 - PPSV23, PCV20, or PCV21) 04/08/2016 02/12/2016, 12/20/2012, 12/20/2012 Diabetes: Ophthalmology Exam 12/13/2021 Diabetes: Pedal Pulse Checked 12/13/2021 Diabetes: Sensory Foot Exam 12/13/2021 Diabetes: Visual Foot Exam 12/13/2021 Influenza Vaccine (#1) 2025 4, 02/01/2023, 01/17/2022, Additional history exists Diabetes: Hemoglobin A1C 01/31/2025 025, 04/27/2024, 12/23/2023, Additional history exists Colorectal Cancer Screening: Colonoscopy 08/24/2034 08/24/2024, 10/18/2018 Pneumococcal Vaccine: Peds (0 to 5 Years) and At-Risk Patients (6 to 49 Years) Discontinued 02/12/2016, 12/20/2012, 12/20/2012 Hepatitis B Vaccine Aged Out No longe r eligible based on patient's age to complete this topic Procedures Procedure Name Priority Date/Time Associated Diagnosis Comments EXT RESULT ENTRY Routine 11/28/2024 EXT RESULT ENTRY Routine 04/06/2023 from Last 3 Months or Most Recently Relevant to Health Maintenance Results * (ABNORMAL) EXT RESULT ENTRY (11/28/2024) Only the most recent of2 resultswithin the time period is included. WBC 7.36 3.3 - 10.0 10*3/ML Red Blood Cell Count 3.32(L) Hemoglobin 9.8(L) 12.0 - 16.0 Hematocrit 30.9 36.0 - 46.0 Platelets 297 150 - 399 10*3/UL MCV 93.1 82.0 - 108.0 MPV 9.5 MCH 29.5 MCHC 31.7(L) RDW-CV 15(H) RDW-SD 50.9 11/28/2024 us Historical Provider LAB BLOOD ORDERABLES Jess l Result from Last 3 Months or Most Recently Relevant to Health Maintenance Insurance [facility] Medicare Care Teams Intermodal Truck Driver Relationship Specialty Start Date End Date [place] [address] PCP - General Internal Medicine 12/13/21
--- OUTSIDE RECORDS SUMMARY | 2024-12-07 14:03 | XMS_ITS | Clinical Summary ---
Author Organization [facility] Address [address] [place] [address] Care Team Providers Care Lehr Tender Name Role Phone Vijay Truong MD Primary Care Provider [phone] Source Comments [facility],non-owned Affiliates and Associated Physician Practices is amultiple site organization consisting of ambulatory clinics and hospital sitesin [place], [place] and [place]. This disclosure is being madepursuant to the Care Everywhere program and may not contain all information available regarding this patient. Last updated 18.[facility] [employer] Allergies No known active allergies Medications * [...] on file Legal Sex Female 4:22 AM FICTION AND NONFICTION PROSE WRITER Gender Identity Not on file Sexual [...] MEDICARE AWV CALENDAR YEAR 2024 DIABETES-HGB A1C 10/26/2024 04/27/2024, , 04/06/2023 INFLUENZA VACCINE (#1) 2025 , 02/01/2023, 01/17/2022, Additional history exists COLON MONITORING 08/24/2034 08/24/2024, 10/18/2018 COLONOSCOPY - COLON CA SCREENING 08/24/2034 08/24/2024, 10/18/2018 Colorectal Cancer Screening 08/24/2034 BONE DENSITY TESTING Completed 04/03/2023 HEPATITIS B [...] patient's age to complete this topic Insurance [facility] MANAGED MEDICARE ADV Care Teams Lehr Tender Relationship Specialty Start Date End Date Vijay Truong MD [address] [place] [address] PCP - General Internal Medicine 01/06/24
[2024-12-07 14:36] LABS: Hematocrit 28.0 % (37.0-47.0); Hemoglobin 9.0 g/dL (12.0-15.0); Immature Granulocyte Percent A 0.5 % (0-0.5); Lymphocytes Absolute Auto 0.81 K/mm3 (0.9-3.2); Mean Corpuscular HGB Conc 32.1 g/dl (32-36); Mean Corpuscular Hemoglobin 30.2 pg (26-34); Mean Corpuscular Volume 94.0 fl (80-100); Nucleated Red Blood Cells Absolute Auto 0.000 K/mm3 (0.0-0.012); Nucleated Red Blood Cells Perc 0.0 % (0.0-0.2); Platelet Count Result 242 k/mm3 (150-375); Red Blood Count 2.98 M/mm3 (4.2-5.4); White Blood Count 8.0 K/mm3 (4.5-10.0)
--- OUTSIDE RECORDS SUMMARY | 2024-12-07 14:38 | XMS_ITS | Clinical Summary ---
Author Organization [facility] Address [address] [place] [address] Care Team Providers Care Court Supervisor Name Role Phone Vijay Truong MD Primary Care Provider [phone] Source Comments [facility],non-owned Affiliates and Associated Physician Practices is amultiple site organization consisting of ambulatory clinics and hospital sitesin [place], [place], [place] and [place]. This disclosure is being madepursuant to the Care Everywhere program and may not contain all information available regarding this patient. Last updated 18.[facility] [employer] Allergies No known active allergies Medications * [...] on file Legal Sex Female 4:22 AM FIELD SERVICE REP Gender Identity Not on file Sexual Orientation [...] patient's age to complete this topic Insurance [facility] MANAGED MEDICARE ADV Care Teams Court Supervisor Relationship Specialty Start Date End Date Vijay Truong MD [address] [place] [address] PCP - General Internal Medicine 01/06/24
--- OUTSIDE RECORDS SUMMARY | 2024-12-07 14:38 | XMS_ITS | Clinical Summary ---
Author Organization [facility] Facility Address [address] [place] [address] Care Team Providers Care Homeopathic Doctor Name Role Phone Vijay Truong Primary Care Provider [phone] Allergies No known active allergies Medications * [...] & Plan: Managed by Dr. Berger at [facility], following up every 3 months. Continues seeing therapist once monthly. Discussed increasing frequency of counseling to once weekly if able. PHQ today 21. Discussed importance of regular exercise/ healthy diet and general healthy lifestyle to improve moods. Lives at home with son and two grandsons. Reports supportive family. Denies any SI/HI. Encounters Date Type Department Care Team Description 12/02/2024 Documentation Only [facility], [place] [address] Ashu Arevalo MD 11/29/2024 Documentation Only [facility], [address] [address] Ashu Arevalo MD from Last [...] Description 12/09/2024 11:30 AM CDT Office Visit [place] [facility], [facility] [address] [place] [address] Ashu Arevalo MD [address] [place] [address] Health Maintenance Due Date Last [...] Most Recently Relevant to Health Maintenance Insurance [facility] Medicare Care Teams Homeopathic Doctor Relationship Specialty Start Date End Date [place] [address] [address] PCP - General Internal Medicine 12/13/21
--- OUTSIDE RECORDS SUMMARY | 2024-12-07 14:38 | XMS_ITS | Encounter Summary ---
Author Organization [facility] Address [address] [place] [address] Care Team Providers Care Pre Sales Network Engineer Name Role Phone Vijay Truong MD Primary Care Provider [phone] Rubén Miranda MD PhD Unavailable [phone] Lila James MD Unavailable [phone] Emile Berger MD Unavailable [phone] Ash Fraga MD Unavailable [phone] Reason for Visit * Reason Onset Date Comments Med Refill 12/07/2024 Encounter Details Date Type Department Care Team (Late st Contact Info) Description 12/07/2024 Telephone Family Physicians [facility] [address] [place] [address] Vijay Truong MD [address] [place] [address] Med Refill Social History Tobacco [...] week 06/26/2022 How often do you attend [facility] or [facility] services? More than 4 times per year 06/26/2022 Do you belong to any clubs o r organizations such as caodaism groups, unions, fraternal or athletic groups, or [...] on file Legal Sex Female 12:56 PM TELEVISION WRITER Gender Identity Female 11/17/2024 4:58 PM CDT Sexual Orientation Straight 11/17/2024 4: 58 PM CDT documented as of this encounter Miscellaneous Notes * Telephone Encounter - Shalonda Holguin MA - 12/07/2024 2:11 PM CDT Was this suppose to be changed to daily or would you like pt to continue taking 3x a week? * Telephone Encounter - Leslie Phan - [...] on filedocumented in this encounter Care Teams Pre Sales Network Engineer Relationship Specialty Start Date End Date Vijay Truong MD [address] [place] [address] PCP - General 08/08/16 Rubén Miranda MD PhD [address] [place] [address] Radiation Oncologist Radiation Oncology 07/27/20 Lila James MD [address] [address] Referring Physician Surgical Oncology 07/27/20 Emile Berger MD [address] [place] [address] Referring Physician Psychiatry & Neurology 02/05/22 Ash Fraga MD [address] [place] [address] Medical Oncologist/Acid Purifier Hematology and Oncology 06/11/22 documented as of this encounter
--- OUTSIDE RECORDS SUMMARY | 2024-12-07 14:38 | XMS_ITS | Clinical Summary ---
Author Organization [facility] Address [address] [place] [id number] Care Team Providers Care Adzing And Boring Machine Helper Name Role Phone Vijay Truong MD Primary Care Provider [phone] Rubén Miranda MD PhD Unavailable [phone] Lila James MD Unavailable [phone] Emile Berger MD Unavailable [phone] Ash Fraga MD Unavailable [phone] Allergies No known active allergies Medications blood-glucose meter kit Use to test blood sugar once daily. 1 each 04/07/20 18 Active hydrOXYzine (VISTARIL) 50 mg capsuleIndications: Type 2 diabetes mellitus with hyperglycemia, with long-term current use of insulin ([facility]) 06/16/19 23 Active lancets miscIndications:Typ e 2 [...] use of insulin ([facility]) Inject 14 Units under the skin nightly E11.65 15 mL 11 11/30/19 25 Active calcitRIOL (ROCALTROL) 0.25 mcg capsule Take 1 capsule (0.25 mcg total) by mouth 03/02/20 24 025 Disconti nued(Reo rder) insulin glargine 100 unit/mL (3 mL) pen for injectionIndication s:Type 2 diabetes mellitus with hypoglycemia without coma, with long-term current use of insulin ([facility]) Inject 17 Units under the skin nightly [...] 03/17/2024 Assessment & Plan (03/17/2024 7:38 AM LADLE CAR OPERATOR): Stable. Following with pulmonology and will [...] monitor. Assessment & Plan (04/27/2024 1:21 PM LADLE CAR OPERATOR): This is a chronic condition which is not at goal on arrival. At goal after rest. Goal is less than 140/90 Continue lisinopril, Lasix Encouraged to monitor weight and B/P at home. Assessment & Plan (03/17/2024 7:39 AM LADLE CAR OPERATOR): Normotensive. Continue lisinopril. Will continue to monitor. Colon cancer screening 03/17/2024 Assessment & Plan (03/17/2024 7:39 AM LADLE CAR OPERATOR): Referral to GI for screening colonoscopy placed History of colonic polyps 03/17/2024 Encounter for screening colonoscopy 03/17/2024 Anemia of chronic renal failure, stage 4 (severe ) 03/07/2024 Assessment & Plan (09/15/2024 1:29 PM CDT): Renal function stable. Anemia improving. Continues following closely with Nephrology. Assessment & Plan (03/17/2024 7:36 AM LADLE CAR OPERATOR): Stable. Following with Nephrology and will continue to do so. Adverse reaction to drug 05/19/2023 Chronic renal insufficiency 05/19/2023 Falls 05/19/2023 UTI (urinary tract infection) 05/19/2023 Blurred vision, bilateral 05/21/2022 Brain lesion 05/21/2022 Lung mass 05/20/2022 Homonymous hemianopia, right 05/20/2022 History of breast cancer 03/30/2022 Encounter for annual wellness exam in Medicare p atient 01/17/2022 Assessment & Plan (03/17/2024 7:36 AM LADLE CAR OPERATOR): Visit preventive in nature. We reviewed [...] 21 Assessment & Plan (04/09/2021 5:57 PM LADLE CAR OPERATOR): Vaccine given in office today. Reviewed [...] cooking Assessment & Plan (05/16/2022 5:25 PM LADLE CAR OPERATOR): Weights stable. Working on diet and exercise, previously riding stationary bike. Assessment & Plan (01/17/2022 10:16 AM CDT): Discussed healthy diet and importance of regular physical activity. Assessment & Plan (10/13/2021 1:35 PM CDT): Congratulated patient on her efforts to improve diet. Discussed healthy diet and importance of regular physical activity. Assessment & Plan (07/11/2021 11:00 AM LADLE CAR OPERATOR): Discussed healthy diet and importance of regular physical activity. Assessment & Plan (04/09/2021 5:57 PM LADLE CAR OPERATOR): Discussed healthy diet and importance of [...] bedtime. Assessment & Plan (05/17/2020 1:10 PM LADLE CAR OPERATOR): Omeprazole refilled. Reviewed provocative foods to avoid: caffeine, citrus, ETOH, carbonated drinks, fried/fatty/fast foods & rich/creamy sauces. Reviewed diet/exercise recommendations: 20-30min physicaly activity daily at minimum. Reviewed med Ses & scheduling. Weight loss will help improve GERD sxs. Keep HOB elevated 30 degrees & not eat 2-3 hrs before bedtime. Regional lymph node metastasis present Assessment & Plan (05/17/2020 1:09 PM LADLE CAR OPERATOR): L axillary lymph node. Anxious re: new L breast ca dx. Anxious re: pending treatments. Discussed at length during appt. Copies of recent screening/diagnostic mamm & ultrasound of L breast given to mrs Mejia. Discussed lymph node involvement. Referral placed to Dr James at [facility]. Aware that her office will call [...] from 05/09/2020:Stage IIA(cT2, cN1(f), cM0, G1, ER+, WI+, HER2-) - Signed by Rubén Miranda MD PhD on 07/27/2020 Pathologic stage from 07/02/2020:Stage IA(pT2, pN1a(sn), cM0, G1, ER+, WI+, HER2- ) - Signed by Rubén Miranda MD PhD on 07/27/2020 Assessment & Plan (01/17/2022 10:19 AM CDT): Assessment & Plan (04/09/2021 6:01 PM LADLE CAR OPERATOR): Follows with oncology, continues letrozone. To [...] necessary. Assessment & Plan (05/17/2020 1:08 PM LADLE CAR OPERATOR): Anxious re: new L breast ca dx. Anxious re: pending treatments. Discussed at length during appt. Copies of recent screening/diagnostic mamm & ultrasound of L breast given to mrs Mejia. Discussed lymph node involvement. Referral placed to Dr James at [facility]. Aware that her office will call [...] continue. Assessment & Plan (04/27/2024 1:21 PM LADLE CAR OPERATOR): This is a chronic condition which is at goal . Goal is LDL less than 70 Continue atorvastatin Encouraged to eat healthy, include fresh fruits and vegetables daily and avoid eating fried foods more than once per week. Assessment & Plan (03/17/2024 7:36 AM LADLE CAR OPERATOR): Stable. Continue atorvastatin. Tolerating without side effects. Will continue to monitor. Assessment & Plan (01/13/2024 12:49 PM CDT): This is a chronic condition which is at goal . Goal is LDL less than 70 Continue atorvastatin Encouraged to eat healthy, include fresh fruits and vegetables daily and avoid eating fried foods more than once per week. Assessment & Plan (04/06/2023 3:43 PM LADLE CAR OPERATOR): This is a chronic condition which [...] prescribed. Assessment & Plan (06/19/2022 2:10 PM LADLE CAR OPERATOR): This is a chronic condition which is not at goal of LDL less than 70 Continue atorvastatin Encouraged to eat healthy, include fresh fruits and vegetables daily and avoid eating fried foods more than once per week. Encouraged to take medications as prescribed. Assessment & Plan (05/16/2022 5:17 PM LADLE CAR OPERATOR): Continue current regimen. Assessment & Plan (01/17/2022 10:16 AM CDT): 01/10/22 TC 186 TRG 421 HDL 29 LDL 90 Continue current regimen, recommended fish oil supplementation and following low fat diet. Will repeat labs prior to next office visit. Assessment & Plan (10/13/2021 1:35 PM CDT): Continue atorvastatin daily. Assessment & Plan (07/11/2021 11:16 PM LADLE CAR OPERATOR): Reviewed previous lipid panel. Doing well on atorvastatin 40 mg daily, denies any medication side effects. Assessment & Plan (04/09/2021 6:00 PM LADLE CAR OPERATOR): Results for orders placed or performed [...] & Plan (08/16/2020 11:24 AM CDT): 12/22/18 AW=023 HDL=43 NR=992 LDL=88 TC/HDL=4.74 07/04/19 TC=78 HDL=32 AQ=242 LNW=521 TC/HDL=10.3 11/07/19 CN=370 DL=27 BI=612 OMD=848 CALC TC/HDL=12.0 to lab 02/09/20 FB=142 HDL=38 JM=081 LDL=92 TC/HLD=5.0 The 10-year ASCVD risk score [...] flags. Assessment & Plan (05/17/2020 1:10 PM LADLE CAR OPERATOR): We will check labs and make [...] exams. Assessment & Plan (05/16/2022 5:23 PM LADLE CAR OPERATOR): Lab Results Component Value Date HGBA1C [...] 04/09/2021 Assessment & Plan (07/11/2021 11:17 PM LADLE CAR OPERATOR): Lab Results Component Value Date HGBA1C 10.5 07/11/2021 HGBA1C 9.7 04/09/2021 HGBA1C 11.7 01/07/2021 Patient agreeable to meet with nutrition educator to discuss healthy food choices to improve blood glucose. Referral placed. Will start basal insulin 10 units nightly, reviewed medication administration, follow up in 3 months and bring copy of blood sugar log to next apt. Reviewed s/s of hypo/hypergylcemia. Assessment & Plan (04/09/2021 6:08 PM LADLE CAR OPERATOR): Lab Results Component Value Date HGBA1C [...] month Assessment & Plan (05/17/2020 1:09 PM LADLE CAR OPERATOR): Lab Results Component Value Date HGBA1C [...] evaluation. Last eye exam december 2018 at [facility]. Letter sent to get copy of results [...] (HCC) WRITTEN ON 01/17/2022 9:44 AM BY CONONR RICHARDS NP 09/18/20 GFR=17 11/08/20 GFR=26 02/14/21 [...] Lasix Assessment & Plan (04/06/2023 3:42 PM LADLE CAR OPERATOR): This is a chronic condition which [...] atorvastatin. Assessment & Plan (06/19/2022 2:08 PM LADLE CAR OPERATOR): This is a chronic condition which [...] regimen. Assessment & Plan (04/06/2023 3:43 PM LADLE CAR OPERATOR): This is a chronic condition which [...] prescribed. Assessment & Plan (06/19/2022 2:09 PM LADLE CAR OPERATOR): This is a chronic condition which is at goal of less than 140/90 Hypotension 94/48 Personally reviewed labs. Decrease lisinopril to 10 mg p.o. daily Encouraged to take medications as prescribed. Assessment & Plan (05/16/2022 5:23 PM LADLE CAR OPERATOR): Blood pressure well controled today. No changes in current regimen. Assessment & Plan (01/17/2022 10:14 AM CDT): Condition is stable Discussed/ordered labs, encouraged healthy, low carbohydrate lifestyle and at least 150min/week of exercise, continue on lisinopril 20 mg daily. BP checked by myself 118/80 Assessment & Plan (10/13/2021 1:41 PM CDT): Stable; continue current medication regimen. Assessment & Plan (07/11/2021 11:17 PM LADLE CAR OPERATOR): BP well controlled today. No changes in current medication regimen. Assessment & Plan (04/09/2021 6:10 PM LADLE CAR OPERATOR): Patient encouraged to take BP medication [...] received. Assessment & Plan (05/17/2020 1:09 PM LADLE CAR OPERATOR): Does not check BP at home. [...] (09/29/2018): Added automatically from request for surgery [id number] Fibromyalgia 01/01/2017 Assessment & Plan (03/17/2024 7:36 AM LADLE CAR OPERATOR): Stable on duloxetine. No changes. Will [...] day Assessment & Plan (07/11/2021 11:04 AM LADLE CAR OPERATOR): Managed by Dr. Berger at [facility], following up every 3 months. Continues seeing therapist once monthly. Discussed increasing frequency of counseling to once weekly if able. PHQ today 21. Discussed importance of regular exercise/ healthy diet and general healthy lifestyle to improve moods. Lives at home with son and two grandsons. Reports supportive family. Denies any SI/HI. Assessment & Plan (04/09/2021 10:47 AM LADLE CAR OPERATOR): PHQ=19 (worsening with breast CA diagnosis) Hydroxyzine 25mg q6hr prn, risperidone 2mg nightly, trazodone 100mg nightly, duloxetine DR 60mg daily, amitriptyline 25mg nightly. Managed by Dr Berger at [facility]. Sees him q3mos. Also sees therapist Kay at [facility]. Denies suicidal/homicidal ideation. Assessment & Plan (08/16/2020 11:22 AM CDT): Hydroxyzine 25mg q6hr prn, risperidone 2mg nightly, trazodone 100mg nightly, duloxetine DR 60mg daily, amitriptyline 25mg nightly. Managed by Dr Berger at [facility]. Doing phone visits with him q3mos. Also with therapist Kay at [facility]. Reports good control of depression w/current regimen. No changes to be made at this time. Reviewed med Ses & scheduling. Reviewed red flags. Assessment & Plan (02/09/2020 9:30 AM CDT): Following w/Dr Berger at [facility] every 3 months. following w/monthly therapy appts w/Mellisa Davidson at [facility]. Verified current medications. Will fax lab results to Dr Berger at [facility] once completed. Reports good control of depression w/current regimen. No changes to be made at this time. Reviewed med Ses & scheduling. Reviewed red flags. Assessment & Plan (11/07/2019 10:00 AM CDT): Followed by Dr Berger at [facility]. Reports good control of depression w/current regimen. No changes to be made at this time. Reviewed med Ses & scheduling. Reviewed red flags. Resolved Problems Problem Noted Date Diagnosed Date Resolved Date BMI 27.0-27.9,adult 02/09/2020 08/17/19 21 Assessment & Plan (05/17/2020 1:11 PM LADLE CAR OPERATOR): Discussed healthy diet and importance of [...] healthier, we can set up appointment with commissioned fire officer/security compliance engineer. 3. Have an active lifestyle, strive for [...] & Plan (11/07/2019 10:01 AM CDT): 12/22/18 KJ=047 HDL=43 WM=571 LDL=88 TC/HDL=4.74 07/04/19 TC=78 HDL=32 EJ=303 RWA=600 TC/HDL=10.3 11/07/19 NH=671 DL=27 JK=051 MJU=111 CALC TC/HDL=12.0 Copy of today's lipid panel given to mrs Mejia. Will have tests verified/repeated at lab today. Aware that atorvastatin will need increased if lipid panel elevated. Encounters Date Type Department Care Team Description 12/07/2024 Nurse Triage [facility] [address] [phone] Vijay Truong MD 12/07/2024 Telephone [facility] [address] [phone] Vijay Truong MD Med Refill 11/28/2024 11:00 AM CDT Lab [address] [phone] 11/15/2024 ACO Outreach [facility] Organization [address] [place] [phone] Ama Douglas RN 10/31/2024 11:00 AM CDT Office Visit [facility] Medical [facility] at [address] [place] [phone] Inna Yepez NP Type 2 diabetes [...] Dexcom continuous glucose monitoring device 10/28/2024 Telephone [facility] at [address] [place] [phone] Inna Yepez NP 10/25/2024 3:00 PM CDT Office Visit [facility] [address] [phone] Lolita Smith NP Hospital discharge follow-up (Primary [...] 23.0-23.9, adult 10/25/2024 Telephone [facility] [address] [phone] Any Mauro MA Successful Phone Call (MED ADHERENCE) 10/20/2024 Telephone [facility] [address] [phone] Vijay Truong MD CARE CRYSTAL REPORT DEVELOPER NIRMAL IP 10/20/2024 NIRMAL IP Outreach [facility] Accountable Care Organization [address] [place] [phone] Rose Mary Rosales LPN 10/17/2024 Orders Only [facility] [address] [place] [phone] Scanning, Provider 10/15/2024 Orders Only [facility] [address] [place] [phone] Scanning, Provider 10/14/2024 Orders Only [facility] [address] [place] [address] Scanning, Provider 10/13/2024 Orders Only [facility] [address] [phone] ProviderRadha MD 09/19/2024 Telephone [facility] [address] [phone] Vijay Truong MD Medical Records Request 09/15/2024 12:30 PM CDT Office Visit [facility] [address] [phone] Lata Corral NP Dyslipidemia associated with type 2 diabetes mellitus (HCC) (Primary Dx); Screening mammogram for breast cancer; Hypertension associated with diabetes (HCC); Anemia of chronic renal failure, stage 4 (severe) (HCC) 09/12/2024 8:55 AM CDT [address] [phone] Dyslipidemia associated with type 2 diabetes mellitus (HCC); Hypertension associated with diabetes (HCC) 09/09/2024 Telephone [facility] [address] [facility] [place] [phone] Inna Lugo MA Labs Requested for Appointment from Last 3 Months Immunizations Immunization Administration Dates Next Due COVID-19 mRNA ([employer]) 0.3 m L (30 mcg) vaccine (12 [...] week 06/26/2022 How often do you attend [facility] or rastafari services? More than 4 times per year 06/26/2022 Do you belong to any clubs o r organizations such as faith groups, unions, fraternal or athletic groups, or [...] place to sleep or slept in a residential (including now)? No 06/26/2022 PHQ-9 Answer Date [...] on file Legal Sex Female 12:56 PM LADLE CAR OPERATOR Gender Identity Female 11/17/2024 4:58 PM CDT [...] 08/24/2024, 10/18/2018 Medical Devices Implanted Type Area Centrifugal Casting Machine Tender Device Identifier Shelf Expiration Date Model / Serial / Lot Bard Peripheral Vascular [id number] Ultraclip Bard 17ga 12cm 2 Trigger Permanent Ultrasound - [id number] - [id number] Implanted:Qty: 1 on 05/09/2020 by Oc Amin MD at [facility] Breast Left: Breast [employer] 11/05/2022 [id number] / [id number] / Bard Peripheral Vascular [id number] Ultraclip Bard 17ga 10cm 2 Trigger Permanent Ultrasound - [id number] - [id number] Implanted:Qty: 1 on 05/09/2020 by Oc Amin MD at [facility] Breast Left: Breast [employer] Per[employer] 12/05/2022 [id number] / [id number] / Procedures Procedure Name Priority Date/Time Associated [...] Read Routine (OP Routine) 04/03/2023 12:42 PM LADLE CAR OPERATOR At high risk for osteoporosis Age-related osteoporosis without current pathological fracture SCREENING MAMMOGRAM RIGHT W WES[place] UNILATERAL ONLY Schedule Routine, Read Routine (OP Routine) 03/28/2022 2:03 PM LADLE CAR OPERATOR Personal history of breast cancer Encounter for [...] LAB BLOOD ORDERABLES Fin al Result [facility] Department [place] [address] * Differential, auto (11/28/2024 11:10 AM CDT) [...] Fin al Result [facility] Department [place] [address] * Iron profile w/ IBC (11/28/2024 11:10 AM CDT) Iron 84 35 - 145 mcg/dL [facility] ([place]) TIBC 261 250 - 400 mcg/dL [facility] ([place]) Transferrin saturation 32 20 - 50 % [facility] ([place]) Blood 11/28/2024 11:1 0 AM CDT 11/28/2024 12:28 PM CDT us Ashu Arevalo MD LAB BLOOD ORDERABLES Fin al Result Performing Organization Address City/[facility]/ZIP Co de Phone Number [facility] ([place]) [facility] Department [place] [address] * (ABNORMAL) CBC with auto differential (11/28/2024 [...] ORDERABLES Fin al Result Performing Organization Address City/[facility]/ZIP Co de Phone Number [facility] [address] [place] [address] * (ABNORMAL) 1,25 Dihydroxycholecalciferol (11/28/2024 11:10 AM CDT) 1-25-di-OH Vit D <8.0(L) 18 - 78 pg/mL [facility] Comment: ADDITIONAL INFORMATION This test was developed and its performance characteristics determined by [facility] in a manner consistent with CLIA requirements. This test has not been cleared or approved by the U.S. Food and Drug Administration. Test Performed by: [facility] [address] [place] [id number] Performance Test Engineer: Starr Jones Ph.D.; CLIA# [id number] Blood 11/28/2024 11:1 0 AM CDT 11/28/2024 12:28 PM CDT us Ashu Arevalo MD LAB BLOOD ORDERABLES Fin al Result Performing Organization Address City/[facility]/ZIP Co de Phone Number [facility] [address] [place] [address] [place] [facility] * Uric acid (11/28/2024 11:10 AM CDT) Pathologist [facility] Uric acid 6.3 2.5 - 7.0 mg/dL [facility]) Blood 11/28/2024 11:1 0 AM CDT 11/28/2024 12:28 PM CDT Ashu Arevalo MD LAB BLOOD ORDERABLES Fin al Result [facility] [address] [place] [address] * (ABNORMAL) PTH (11/28/2024 11:10 AM CDT) PTH 106(H) 18 - 58 pg/mL [facility] ([place]) Blood 11/28/2024 11:1 0 AM CDT 11/28/2024 12:28 PM CDT us Ashu Arevalo MD LAB BLOOD ORDERABLES Fin al Result [facility] ([place] Department [place] [address] * (ABNORMAL) Renal function panel (11/28/2024 11:10 [...] LAB BLOOD ORDERABLES Fin al Result [facility] Department [place] [address] * (ABNORMAL) POCT hemoglobin A1c (10/31/2024 10:40 AM CDT) Hemoglobin A1C, POC 6.3(A) 4.0 - 5.6 % Blood 10/31/2024 10:4 0 AM CDT Inna Yepez PUBLIC HEALTH REPRESENTATIVE POINT OF CARE TEST ORDERABLES F inal Result * POCT glucose (10/31/2024 10:38 AM CDT) Glucose Blood, POC 190 Normal Fasting 70 - 100, Random <200 mg/dL Blood 10/31/2024 10:3 8 AM CDT Inna Yepez PUBLIC HEALTH REPRESENTATIVE POINT OF CARE TEST ORDERABLES F inal [...] NP LAB BLOOD ORDERABLES Final Result [facility] Department [place] [address] * Differential, auto (09/12/2024 9:00 AM CDT) Pathologist [facility] Neutrophil abs 6.04 1.50 - 6.50 K/cumm [...] ORDERABLES Final Result [facility] Department [place] [address] * (ABNORMAL) CBC with auto [...] ([place]) [address] [facility] Department [place] [address] * Lipid panel (09/12/2024 9:00 AM CDT) [...] last revised on 2017. Chol/HDL ratio 3 [facility] ([place]) Blood 09/12/2024 9:00 AM CDT 09/12/2024 9:45 AM CDT Lata Corral PUBLIC HEALTH REPRESENTATIVE LAB BLOOD ORDERABLES Final Result [facility] Department [place] [address] * (ABNORMAL) Comprehensive metabolic panel (09/12/2024 9:00 [...] ORDERABLES Final Result [facility] Department [place] [address] * Colonoscopy (08/24/2024 7:16 AM CDT) Anatomical [...] immediately with the 2nd glass ofwater. Florastor Tilera per labelinstructions. MiraLax 1 capful 1-2 times [...] passed under direct vision. The Pediatric Colonoscope [id number] was introduced through the anus and advanced [...] 7:16 AM Procedure Code(s): --- Professional --- 03972, Colonoscopy, flexible; with biopsy, single or multiple --- Technical --- 96099, Colonoscopy, flexible; with biopsy, single or multiple [...] perforation orabscess without bleeding CPT copyright 2020 [employer]. All rights reserved. The codes documented in this report are preliminary and upon software support analyst reviewmay be revised to meet current compliance requirements. Recognized by the [employer] for promoting quality [...] was last revised 2018. Testing performed by: [facility], [address] [place] [address]., [id number] Creatinine Ur 128.1 mg/dL [facility] Comment: Interpretive Data No reference range established. Current interpretive data was last revised 2018. Testing performed by: [facility], [address] [place] [address]., [id number] Albumin Creatinine Ratio, Ur 1,112(H) 1 - 29 mg/g [facility] Comment:Testing performed by : [facility], [address] [place] [address]., [id number] Urine 02/23/2024 12:1 0 PM CDT 02/23/2024 9:33 PM CDT Ashu Arevalo MD LAB URINE ORDERABLES Fin al Result [facility] Department [place] [address] * Dexa Axial Skeleton Bone Density 1 or 2 Site (04/03/2023 12:42 PM LADLE CAR OPERATOR) Anatomical Region Laterality Modality Body N/A Other 04/03/2023 1:05 PM LADLE CAR OPERATOR Narrative 04/03/2023 1:05 PM LADLE CAR OPERATOR EXAM DESCRIPTION: DEXA AXIAL SKELETON BONE DENSITY 1 OR MORE SITES REASON FOR STUDY: 67 y/o year old F with given history of: history of AI therapy Osteoporosis screening Post menopausal Centrifugal Casting Machine Tender/Model: [employer]ur[employer]io Discovery SL (S/N [id number]) CLINICAL INFORMATION: Current height: 65 inches Maximum [...] Vini Kaur M.D. MF: TOBIN Report ID: [id number] Reading Location: [id number] Procedure Note Vini Kaur MD - 04/03/2023 EXAM DESCRIPTION: DEXA AXIAL SKELETON BONE DENSITY 1 OR MORE SITES REASON FOR STUDY: 67 y/o year old F with given history of: history ofAI therapy Osteoporosis screening Post menopausal Centrifugal Casting Machine Tender/Model: [employer] Discovery SL (S/N [address]) CLINICAL INFORMATION: Current height: 65 inches Maximum [...] Vini Kaur M.D. MF: TOBIN Report ID: [id number] Reading Location: [place] [address] Shaniquajose Ellison NP IMG DXA PROCEDURES Fi nal Result * Screening Mammogram Right W Wesley Unilateral Only (03/28/2022 2:03 PM LADLE CAR OPERATOR) Anatomical Region Laterality Modality Breast Right Mammography Narrative 03/28/2022 3:58 PM LADLE CAR OPERATOR Mammogram Technique: Right Breast Digital Breast Tomosynthesis, Unilateral C-view 2D Screening mammogram. Views obtained: bilateral craniocaudal and bilateral mediolateral oblique. Computer Aided Detection was performed. Mammogram Findings: The present examination has been compared to prior imaging studies performed on 02/16/2020, at [facility]. [facility] on 04/17/2020 and 05/09/2020, and at [facility] on 03/22/2021. The breast is [...] imaging studies performed on 02/16/2020, at [facility]. [facility] on 04/17/2020 and 05/09/2020, and at [facility] on 03/22/2021. The breast is [...] Most Recently Relevant to Health Maintenance Insurance [facility] UHC MEDICARE ADVANTAGE [facility] MEDICARE ADVANTAGE [facility] MEDICARE ADVANTAGE Advance Directives For more information, please contact: [phone] * Full Code (Latest Code Status on [...] 8:34 AM 10/18/2018 8:35 AM Care Teams Adzing And Boring Machine Helper Relationship Specialty Start Date End Date Vijay Truong MD [address] [place] [address] PCP - General 08/08/16 Rubén Miranda MD PhD [address] [place] [address] Radiation Oncologist Radiation Oncology 07/27/20 Lila James MD [address] [address] Referring Physician Surgical Oncology 07/27/20 Emile Berger MD [address] [place] [address] Referring Physician Psychiatry & Neurology 02/05/22 Ash Fraga MD [address] [place] [address] Medical Oncologist/Merchandise Supervisor Hematology and Oncology 06/11/22
--- OUTSIDE RECORDS SUMMARY | 2024-12-07 14:38 | XMS_ITS | Encounter Summary ---
Author Organization [facility] Address [address] [place] [address] Care Team Providers Care Hand Ii Thermal Cutter Name Role Phone Vijay Truong MD Primary Care Provider [phone] Rubén Miranda MD PhD Unavailable [phone] Lila James MD Unavailable [phone] Emile Berger MD Unavailable [phone] Ash Fraga MD Unavailable [phone] Reason for Visit * Reason Onset Date Comments Cellulitis 12/07/2024 Encounter Details Date Type Department Care Team (Late st Contact Info) Description 12/07/2024 Nurse Triage [facility] [address] [place] [address] Vijay Troung MD [address] [place] [address] Social History Tobacco Use Types [...] week 06/26/2022 How often do you attend [facility] or scientologist services? More than 4 times per year [...] place to sleep or slept in a detention (including now)? 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 Kumar provided verbal auth to speak with [...] a medication question/clarification message routedto practice clinical [place] within the last 20 mins. Leo was advised a member of Dr. Truong clinical team would call him as soon as they can to discuss the medication. Does message need to be routed? Yes-Action Needed documented in this encounter Plan of Treatment Not on file documented as of this encounter Visit Diagnoses Not on filedocumented in this encounter Care Teams Hand Ii Thermal Cutter Relationship Specialty Start Date End Date Vijay Truong MD [address] [place] [address] PCP - General 08/08/16 Rubén Miranda MD PhD [address] [place] [id number] Radiation Oncologist Radiation Oncology 07/27/20 Lila James MD [address] [address] Referring Physician Surgical Oncology 07/27/20 Emile Berger MD [address] [place] [address] Referring Physician Psychiatry & Neurology 02/05/22 Ash Fraga MD [address] [place] [address] Medical Oncologist/Cigar Patcher Hematology and Oncology 06/11/22 documented as of this encounter
--- OUTSIDE RECORDS SUMMARY | 2024-12-07 14:38 | XMS_ITS ---
Author Organization [facility] Address [address] [place] [address] Care Team Providers Care Salt Miner Name Role Phone Vijay Truong MD Primary Care Provider [phone] Rubén Miranda MD PhD Unavailable [phone] Lila James MD Unavailable [phone] Emile Berger MD Unavailable [phone] Ash Fraga MD Unavailable [phone] Active Problems Problem Noted Date Diagnosed [...] 03/17/2024 Assessment & Plan (03/17/2024 7:38 AM VP SOFTWARE): Stable. Following with pulmonology and will continue [...] monitor. Assessment & Plan (04/27/2024 1:21 PM VP SOFTWARE): This is a chronic condition which is not at goal on arrival. At goal after rest. Goal is less than 140/90 Continue lisinopril, Lasix Encouraged to monitor weight and B/P at home. Assessment & Plan (03/17/2024 7:39 AM VP SOFTWARE): Normotensive. Continue lisinopril. Will continue to monitor. Colon cancer screening 03/17/2024 Assessment & Plan (03/17/2024 7:39 AM VP SOFTWARE): Referral to GI for screening colonoscopy placed History of colonic polyps 03/17/2024 Encounter for screening colonoscopy 03/17/2024 Anemia of chronic renal failure, stage 4 (severe ) 03/07/2024 Assessment & Plan (09/15/2024 1:29 PM CDT): Renal function stable. Anemia improving. Continues following closely with Nephrology. Assessment & Plan (03/17/2024 7:36 AM VP SOFTWARE): Stable. Following with Nephrology and will continue to do so. 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 We reviewed medications, [...] 21 Assessment & Plan (04/09/2021 5:57 PM VP SOFTWARE): Vaccine given in office today. Reviewed possible [...] cooking Assessment & Plan (05/16/2022 5:25 PM VP SOFTWARE): Weights stable. Working on diet and exercise, previously riding stationary bike. Assessment & Plan (01/17/2022 10:16 AM CDT): Discussed healthy diet and importance of regular physical activity. Assessment & Plan (10/13/2021 1:35 PM CDT): Congratulated patient on her efforts to improve diet. Discussed healthy diet and importance of regular physical activity. Assessment & Plan (07/11/2021 11:00 AM VP SOFTWARE): Discussed healthy diet and importance of regular physical activity. Assessment & Plan (04/09/2021 5:57 PM VP SOFTWARE): Discussed healthy diet and importance of regular [...] bedtime. Assessment & Plan (05/17/2020 1:10 PM VP SOFTWARE): Omeprazole refilled. Reviewed provocative foods to avoid: caffeine, citrus, ETOH, carbonated drinks, fried/fatty/fast foods & rich/creamy sauces. Reviewed diet/exercise recommendations: 20-30min physicaly activity daily at minimum. Reviewed med Ses & scheduling. Weight loss will help improve GERD sxs. Keep HOB elevated 30 degrees & not eat 2-3 hrs before bedtime. Regional lymph node metastasis present Assessment & Plan (05/17/2020 1:09 PM VP SOFTWARE): L axillary lymph node. Anxious re: new L breast ca dx. Anxious re: pending treatments. Discussed at length during appt. Copies of recent screening/diagnostic mamm & ultrasound of L breast given to mrs Mejia. Discussed lymph node involvement. Referral placed to Dr James at [facility]. Aware that her office will call [...] from 05/09/2020:Stage IIA(cT2, cN1(f), cM0, G1, ER+, VT+, HER2-) - Signed by Rubén Miranda MD PhD on 07/27/2020 Pathologic stage from 07/02/2020:Stage IA(pT2, pN1a(sn), cM0, G1, ER+, VT+, HER2- ) - Signed by Rubén Miranda MD PhD on 07/27/2020 Assessment & Plan (01/17/2022 10:19 AM CDT): Assessment & Plan (04/09/2021 6:01 PM VP SOFTWARE): Follows with oncology, continues letrozone. To have [...] necessary. Assessment & Plan (05/17/2020 1:08 PM VP SOFTWARE): Anxious re: new L breast ca dx. Anxious re: pending treatments. Discussed at length during appt. Copies of recent screening/diagnostic mamm & ultrasound of L breast given to mrs Mejia. Discussed lymph node involvement. Referral placed to Dr James at [facility]. Aware that her office will call [...] continue. Assessment & Plan (04/27/2024 1:21 PM VP SOFTWARE): This is a chronic condition which is at goal . Goal is LDL less than 70 Continue atorvastatin Encouraged to eat healthy, include fresh fruits and vegetables daily and avoid eating fried foods more than once per week. Assessment & Plan (03/17/2024 7:36 AM VP SOFTWARE): Stable. Continue atorvastatin. Tolerating without side effects. Will continue to monitor. Assessment & Plan (01/13/2024 12:49 PM CDT): This is a chronic condition which is at goal . Goal is LDL less than 70 Continue atorvastatin Encouraged to eat healthy, include fresh fruits and vegetables daily and avoid eating fried foods more than once per week. Assessment & Plan (04/06/2023 3:43 PM VP SOFTWARE): This is a chronic condition which is [...] prescribed. Assessment & Plan (06/19/2022 2:10 PM VP SOFTWARE): This is a chronic condition which is not at goal of LDL less than 70 Continue atorvastatin Encouraged to eat healthy, include fresh fruits and vegetables daily and avoid eating fried foods more than once per week. Encouraged to take medications as prescribed. Assessment & Plan (05/16/2022 5:17 PM VP SOFTWARE): Continue current regimen. Assessment & Plan (01/17/2022 10:16 AM CDT): 01/10/22 TC 186 TRG 421 HDL 29 LDL 90 Continue current regimen, recommended fish oil supplementation and following low fat diet. Will repeat labs prior to next office visit. Assessment & Plan (10/13/2021 1:35 PM CDT): Continue atorvastatin daily. Assessment & Plan (07/11/2021 11:16 PM VP SOFTWARE): Reviewed previous lipid panel. Doing well on atorvastatin 40 mg daily, denies any medication side effects. Assessment & Plan (04/09/2021 6:00 PM VP SOFTWARE): Results for orders placed or performed in [...] & Plan (08/16/2020 11:24 AM CDT): 12/22/18 BF=563 HDL=43 XJ=008 LDL=88 TC/HDL=4.74 07/04/19 TC=78 HDL=32 RA=578 OKO=867 TC/HDL=10.3 11/07/19 NE=464 DL=27 VU=679 KXM=833 CALC TC/HDL=12.0 to lab 02/09/20 UN=679 HDL=38 QS=604 LDL=92 TC/HLD=5.0 The 10-year ASCVD risk score [...] flags. Assessment & Plan (05/17/2020 1:10 PM VP SOFTWARE): We will check labs and make adjustments [...] exams. Assessment & Plan (05/16/2022 5:23 PM VP SOFTWARE): Lab Results Component Value Date HGBA1C 9.9 [...] 04/09/2021 Assessment & Plan (07/11/2021 11:17 PM VP SOFTWARE): Lab Results Component Value Date HGBA1C 10.5 07/11/2021 HGBA1C 9.7 04/09/2021 HGBA1C 11.7 01/07/2021 Patient agreeable to meet with nurse educator to discuss healthy food choices to improve blood glucose. Referral placed. Will start basal insulin 10 units nightly, reviewed medication administration, follow up in 3 months and bring copy of blood sugar log to next apt. Reviewed s/s of hypo/hypergylcemia. Assessment & Plan (04/09/2021 6:08 PM VP SOFTWARE): Lab Results Component Value Date HGBA1C 9.7 [...] month Assessment & Plan (05/17/2020 1:09 PM VP SOFTWARE): Lab Results Component Value Date HGBA1C 9.6 [...] evaluation. Last eye exam december 2018 at [facility]. Letter sent to get copy of [...] WRITTEN ON 10/25/2024 3:16 PM BY LOLITA MSITH NP Will be starting Dialysis soon. Continue [...] Lasix Assessment & Plan (04/06/2023 3:42 PM VP SOFTWARE): This is a chronic condition which is [...] atorvastatin. Assessment & Plan (06/19/2022 2:08 PM VP SOFTWARE): This is a chronic condition which is [...] regimen. Assessment & Plan (04/06/2023 3:43 PM VP SOFTWARE): This is a chronic condition which is [...] prescribed. Assessment & Plan (06/19/2022 2:09 PM VP SOFTWARE): This is a chronic condition which is at goal of less than 140/90 Hypotension 94/48 Personally reviewed labs. Decrease lisinopril to 10 mg p.o. daily Encouraged to take medications as prescribed. Assessment & Plan (05/16/2022 5:23 PM VP SOFTWARE): Blood pressure well controled today. No changes in current regimen. Assessment & Plan (01/17/2022 10:14 AM CDT): Condition is stable Discussed/ordered labs, encouraged healthy, low carbohydrate lifestyle and at least 150min/week of exercise, continue on lisinopril 20 mg daily. BP checked by myself 118/80 Assessment & Plan (10/13/2021 1:41 PM CDT): Stable; continue current medication regimen. Assessment & Plan (07/11/2021 11:17 PM VP SOFTWARE): BP well controlled today. No changes in current medication regimen. Assessment & Plan (04/09/2021 6:10 PM VP SOFTWARE): Patient encouraged to take BP medication as [...] received. Assessment & Plan (05/17/2020 1:09 PM VP SOFTWARE): Does not check BP at home. The [...] (09/29/2018): Added automatically from request for surgery [id number] Fibromyalgia 01/01/2017 Assessment & Plan (03/17/2024 7:36 AM VP SOFTWARE): Stable on duloxetine. No changes. Will continue [...] day Assessment & Plan (07/11/2021 11:04 AM VP SOFTWARE): Managed by Dr. Berger at [facility], following up every 3 months. Continues seeing therapist once monthly. Discussed increasing frequency of counseling to once weekly if able. PHQ today 21. Discussed importance of regular exercise/ healthy diet and general healthy lifestyle to improve moods. Lives at home with son and two grandsons. Reports supportive family. Denies any SI/HI. Assessment & Plan (04/09/2021 10:47 AM VP SOFTWARE): PHQ=19 (worsening with breast CA diagnosis) Hydroxyzine 25mg q6hr prn, risperidone 2mg nightly, trazodone 100mg nightly, duloxetine DR 60mg daily, amitriptyline 25mg nightly. Managed by Dr Bergre at [facility]. Sees him q3mos. Also sees therapist Kay at [facility]. Denies suicidal/homicidal ideation. Assessment & Plan (08/16/2020 11:22 AM CDT): Hydroxyzine 25mg q6hr prn, risperidone 2mg nightly, trazodone 100mg nightly, duloxetine DR 60mg daily, amitriptyline 25mg nightly. Managed by Dr Berger at [facility]. Doing phone visits with him q3mos. Also with therapist Kay at [facility]. Reports good control of depression w/current regimen. No changes to be made at this time. Reviewed med Ses & scheduling. Reviewed red flags. Assessment & Plan (02/09/2020 9:30 AM CDT): Following w/Dr Berger at [facility] every 3 months. following w/monthly therapy appts w/Mellisa Davidson at [facility]. Verified current medications. Will fax lab results to Dr Berger at [facility] once completed. Reports good control of depression w/current regimen. No changes to be made at this time. Reviewed med Ses & scheduling. Reviewed red flags. Assessment & Plan (11/07/2019 10:00 AM CDT): Followed by Dr Berger at [facility]. 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 3. Have an active lifestyle, strive for [...] & Plan (11/07/2019 10:01 AM CDT): 12/22/18 CU=902 HDL=43 ME=513 LDL=88 TC/HDL=4.74 07/04/19 TC=78 HDL=32 HU=807 MWI=100 TC/HDL=10.3 11/07/19 IM=443 DL=27 DL=667 XOZ=197 CALC TC/HDL=12.0 Copy of today's lipid panel given to mrs Mejia. Will have tests verified/repeated at lab today. Aware that atorvastatin will need increased if lipid panel elevated.
--- OUTSIDE RECORDS SUMMARY | 2024-12-07 14:38 | XMS_ITS | Referral Summary ---
Author Organization [facility] Address [address] [place] [address] Care Team Providers Care Ancient Art Curator Name Role Phone Vijay Truong MD Primary Care Provider [phone] Rubén Miranda MD PhD Unavailable [phone] Lila James MD Unavailable [phone] Emile Berger MD Unavailable [phone] Ash Fraga MD Unavailable [phone] Encounters Date Type Department Care Team Description 12/07/2024 Nurse Triage [facility] [address] [address] Vijay Truong MD 12/07/2024 Telephone [facility] [address] [address] Vijay Truong MD Med Refill 11/28/2024 11:00 AM CDT Lab [address] [phone] 11/15/[address] [facility] Accountable Care Organization [address] [place] [address] Ama Douglas RN 10/31/2024 11:00 AM CDT Office Visit [facility] at [address] [place] [address] Inna Yepez, MAREN Type 2 [...] Dexcom continuous glucose monitoring device 10/28/[address] [facility] at [address] [place] [address] Inna Yepez NP 10/25/2024 Telephone [facility] [address] [address] Any Mauro MA Successful Phone Call (MED ADHERENCE) 10/25/2024 3:00 PM CDT Office Visit [facility] [address] [address] Lolita Smith NP Hospital discharge [...] BMI 23.0-23.9, adult 10/20/2024 Telephone [facility] [address] [address] Vijay Truong MD CARE AUTO RADIATOR MECHANIC NIRMAL IP 10/20/2024 NIRMAL IP Outreach [facility] Care Organization [address] [place] [phone] Rose Mary Rosales LPN 10/17/2024 Orders Only [facility] [address] [place] [address] Scanning, Provider 10/15/2024 Orders Only [facility] [address] [place] [address] Scanning, Provider 10/14/2024 Orders Only [facility] [address] [place] [address] Scanning, Provider 10/13/2024 Orders Only [facility] [address] [phone] Radha Rodriges MD 09/19/2024 Telephone [facility] [address] [address] Vijay Truong MD Medical Records Request 09/15/2024 12:30 PM CDT Office Visit [facility] [address] [phone] Lata Corral NP Dyslipidemia associated with type 2 diabetes mellitus (HCC) (Primary Dx); Screening mammogram for breast cancer; Hypertension associated with diabetes (HCC); Anemia of chronic renal failure, stage 4 (severe) (HCC) 09/12/2024 8:55 AM CDT [address] [address] Dyslipidemia associated with type 2 diabetes mellitus (HCC); Hypertension associated with diabetes (HCC) 09/09/2024 Telephone [facility] [address] [phone] Inna Lugo MA Labs Requested for Appointment [...] with long-term current use of insulin ([facility]) Inject 14 Units under the skin nightly E11.65 15 mL 11 11/30/19 25 Active calcitRIOL (ROCALTROL) 0.25 mcg capsule Take 1 capsule (0.25 mcg total) by mouth 03/02/20 24 025 Disconti nued(Reo rder) insulin glargine 100 unit/mL (3 mL) pen for injectionIndication s:Type 2 diabetes mellitus with hypoglycemia without coma, with long-term current use of insulin ([facility]) Inject 17 Units under the [...] 03/17/2024 Assessment & Plan (03/17/2024 7:38 AM FLEET ADMINISTRATIVE ASSISTANT): Stable. Following with pulmonology and will continue [...] monitor. Assessment & Plan (04/27/2024 1:21 PM FLEET ADMINISTRATIVE ASSISTANT): This is a chronic condition which is not at goal on arrival. At goal after rest. Goal is less than 140/90 Continue lisinopril, Lasix Encouraged to monitor weight and B/P at home. Assessment & Plan (03/17/2024 7:39 AM FLEET ADMINISTRATIVE ASSISTANT): Normotensive. Continue lisinopril. Will continue to monitor. Colon cancer screening 03/17/2024 Assessment & Plan (03/17/2024 7:39 AM FLEET ADMINISTRATIVE ASSISTANT): Referral to GI for screening colonoscopy placed History of colonic polyps 03/17/2024 Encounter for screening colonoscopy 03/17/2024 Anemia of chronic renal failure, stage 4 (severe ) 03/07/2024 Assessment & Plan (09/15/2024 1:29 PM CDT): Renal function stable. Anemia improving. Continues following closely with Nephrology. Assessment & Plan (03/17/2024 7:36 AM FLEET ADMINISTRATIVE ASSISTANT): Stable. Following with Nephrology and will continue to do so. 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 We reviewed medications, [...] 21 Assessment & Plan (04/09/2021 5:57 PM FLEET ADMINISTRATIVE ASSISTANT): Vaccine given in office today. Reviewed possible [...] cooking Assessment & Plan (05/16/2022 5:25 PM FLEET ADMINISTRATIVE ASSISTANT): Weights stable. Working on diet and exercise, previously riding stationary bike. Assessment & Plan (01/17/2022 10:16 AM CDT): Discussed healthy diet and importance of regular physical activity. Assessment & Plan (10/13/2021 1:35 PM CDT): Congratulated patient on her efforts to improve diet. Discussed healthy diet and importance of regular physical activity. Assessment & Plan (07/11/2021 11:00 AM FLEET ADMINISTRATIVE ASSISTANT): Discussed healthy diet and importance of regular physical activity. Assessment & Plan (04/09/2021 5:57 PM FLEET ADMINISTRATIVE ASSISTANT): Discussed healthy diet and importance of regular [...] bedtime. Assessment & Plan (05/17/2020 1:10 PM FLEET ADMINISTRATIVE ASSISTANT): Omeprazole refilled. Reviewed provocative foods to avoid: caffeine, citrus, ETOH, carbonated drinks, fried/fatty/fast foods & rich/creamy sauces. Reviewed diet/exercise recommendations: 20-30min physicaly activity daily at minimum. Reviewed med Ses & scheduling. Weight loss will help improve GERD sxs. Keep HOB elevated 30 degrees & not eat 2-3 hrs before bedtime. Regional lymph node metastasis present Assessment & Plan (05/17/2020 1:09 PM FLEET ADMINISTRATIVE ASSISTANT): L axillary lymph node. Anxious re: new L breast ca dx. Anxious re: pending treatments. Discussed at length during appt. Copies of recent screening/diagnostic mamm & ultrasound of L breast given to mrs Mejia. Discussed lymph node involvement. Referral placed to Dr James at [facility]. Aware that her office will call [...] from 05/09/2020:Stage IIA(cT2, cN1(f), cM0, G1, ER+, RI+, HER2-) - Signed by Rubén Miranda MD PhD on 07/27/2020 Pathologic stage from 07/02/2020:Stage IA(pT2, pN1a(sn), cM0, G1, ER+, RI+, HER2- ) - Signed by Rubén Miranda MD PhD on 07/27/2020 Assessment & Plan (01/17/2022 10:19 AM CDT): Assessment & Plan (04/09/2021 6:01 PM FLEET ADMINISTRATIVE ASSISTANT): Follows with oncology, continues letrozone. To have [...] necessary. Assessment & Plan (05/17/2020 1:08 PM FLEET ADMINISTRATIVE ASSISTANT): Anxious re: new L breast ca dx. Anxious re: pending treatments. Discussed at length during appt. Copies of recent screening/diagnostic mamm & ultrasound of L breast given to mrs Mejia. Discussed lymph node involvement. Referral placed to Dr James at [facility]. Aware that her office will call [...] continue. Assessment & Plan (04/27/2024 1:21 PM FLEET ADMINISTRATIVE ASSISTANT): This is a chronic condition which is at goal . Goal is LDL less than 70 Continue atorvastatin Encouraged to eat healthy, include fresh fruits and vegetables daily and avoid eating fried foods more than once per week. Assessment & Plan (03/17/2024 7:36 AM FLEET ADMINISTRATIVE ASSISTANT): Stable. Continue atorvastatin. Tolerating without side effects. Will continue to monitor. Assessment & Plan (01/13/2024 12:49 PM CDT): This is a chronic condition which is at goal . Goal is LDL less than 70 Continue atorvastatin Encouraged to eat healthy, include fresh fruits and vegetables daily and avoid eating fried foods more than once per week. Assessment & Plan (04/06/2023 3:43 PM FLEET ADMINISTRATIVE ASSISTANT): This is a chronic condition which is [...] prescribed. Assessment & Plan (06/19/2022 2:10 PM FLEET ADMINISTRATIVE ASSISTANT): This is a chronic condition which is not at goal of LDL less than 70 Continue atorvastatin Encouraged to eat healthy, include fresh fruits and vegetables daily and avoid eating fried foods more than once per week. Encouraged to take medications as prescribed. Assessment & Plan (05/16/2022 5:17 PM FLEET ADMINISTRATIVE ASSISTANT): Continue current regimen. Assessment & Plan (01/17/2022 10:16 AM CDT): 01/10/22 TC 186 TRG 421 HDL 29 LDL 90 Continue current regimen, recommended fish oil supplementation and following low fat diet. Will repeat labs prior to next office visit. Assessment & Plan (10/13/2021 1:35 PM CDT): Continue atorvastatin daily. Assessment & Plan (07/11/2021 11:16 PM FLEET ADMINISTRATIVE ASSISTANT): Reviewed previous lipid panel. Doing well on atorvastatin 40 mg daily, denies any medication side effects. Assessment & Plan (04/09/2021 6:00 PM FLEET ADMINISTRATIVE ASSISTANT): Results for orders placed or performed in [...] & Plan (08/16/2020 11:24 AM CDT): 12/22/18 WR=284 HDL=43 JG=208 LDL=88 TC/HDL=4.74 07/04/19 TC=78 HDL=32 BO=322 SSJ=330 TC/HDL=10.3 11/07/19 ID=225 DL=27 UB=670 ADP=140 CALC TC/HDL=12.0 to lab 02/09/20 AE=226 HDL=38 PR=676 LDL=92 TC/HLD=5.0 The 10-year ASCVD risk score ([place] BARRY Jr., et al., 2013) is: 11.5% [...] flags. Assessment & Plan (05/17/2020 1:10 PM FLEET ADMINISTRATIVE ASSISTANT): We will check labs and make adjustments [...] exams. Assessment & Plan (05/16/2022 5:23 PM FLEET ADMINISTRATIVE ASSISTANT): Lab Results Component Value Date HGBA1C 9.9 [...] 04/09/2021 Assessment & Plan (07/11/2021 11:17 PM FLEET ADMINISTRATIVE ASSISTANT): Lab Results Component Value Date HGBA1C 10.5 07/11/2021 HGBA1C 9.7 04/09/2021 HGBA1C 11.7 01/07/2021 Patient agreeable to meet with advertising solicitor to discuss healthy food choices to improve blood glucose. Referral placed. Will start basal insulin 10 units nightly, reviewed medication administration, follow up in 3 months and bring copy of blood sugar log to next apt. Reviewed s/s of hypo/hypergylcemia. Assessment & Plan (04/09/2021 6:08 PM FLEET ADMINISTRATIVE ASSISTANT): Lab Results Component Value Date HGBA1C 9.7 [...] month Assessment & Plan (05/17/2020 1:09 PM FLEET ADMINISTRATIVE ASSISTANT): Lab Results Component Value Date HGBA1C 9.6 [...] evaluation. Last eye exam december 2018 at [facility]. Letter sent to get copy of [...] Lasix Assessment & Plan (04/06/2023 3:42 PM FLEET ADMINISTRATIVE ASSISTANT): This is a chronic condition which is [...] atorvastatin. Assessment & Plan (06/19/2022 2:08 PM FLEET ADMINISTRATIVE ASSISTANT): This is a chronic condition which is [...] regimen. Assessment & Plan (04/06/2023 3:43 PM FLEET ADMINISTRATIVE ASSISTANT): This is a chronic condition which is [...] prescribed. Assessment & Plan (06/19/2022 2:09 PM FLEET ADMINISTRATIVE ASSISTANT): This is a chronic condition which is at goal of less than 140/90 Hypotension 94/48 Personally reviewed labs. Decrease lisinopril to 10 mg p.o. daily Encouraged to take medications as prescribed. Assessment & Plan (05/16/2022 5:23 PM FLEET ADMINISTRATIVE ASSISTANT): Blood pressure well controled today. No changes in current regimen. Assessment & Plan (01/17/2022 10:14 AM CDT): Condition is stable Discussed/ordered labs, encouraged healthy, low carbohydrate lifestyle and at least 150min/week of exercise, continue on lisinopril 20 mg daily. BP checked by myself 118/80 Assessment & Plan (10/13/2021 1:41 PM CDT): Stable; continue current medication regimen. Assessment & Plan (07/11/2021 11:17 PM FLEET ADMINISTRATIVE ASSISTANT): BP well controlled today. No changes in current medication regimen. Assessment & Plan (04/09/2021 6:10 PM FLEET ADMINISTRATIVE ASSISTANT): Patient encouraged to take BP medication as [...] received. Assessment & Plan (05/17/2020 1:09 PM FLEET ADMINISTRATIVE ASSISTANT): Does not check BP at home. The [...] (09/29/2018): Added automatically from request for surgery [id number] Fibromyalgia 01/01/2017 Assessment & Plan (03/17/2024 7:36 AM FLEET ADMINISTRATIVE ASSISTANT): Stable on duloxetine. No changes. Will continue [...] day Assessment & Plan (07/11/2021 11:04 AM FLEET ADMINISTRATIVE ASSISTANT): Managed by Dr. Berger at [facility], following up every 3 months. Continues seeing therapist once monthly. Discussed increasing frequency of counseling to once weekly if able. PHQ today 21. Discussed importance of regular exercise/ healthy diet and general healthy lifestyle to improve moods. Lives at home with son and two grandsons. Reports supportive family. Denies any SI/HI. Assessment & Plan (04/09/2021 10:47 AM FLEET ADMINISTRATIVE ASSISTANT): PHQ=19 (worsening with breast CA diagnosis) Hydroxyzine 25mg q6hr prn, risperidone 2mg nightly, trazodone 100mg nightly, duloxetine DR 60mg daily, amitriptyline 25mg nightly. Managed by Dr Berger at [facility]. Sees him q3mos. Also sees therapist Kay at [facility]. Denies suicidal/homicidal ideation. Assessment & Plan (08/16/2020 11:22 AM CDT): Hydroxyzine 25mg q6hr prn, risperidone 2mg nightly, trazodone 100mg nightly, duloxetine DR 60mg daily, amitriptyline 25mg nightly. Managed by Dr Berger at [facility]. Doing phone visits with him q3mos. Also with therapist Kay at [facility]. Reports good control of depression w/current regimen. No changes to be made at this time. Reviewed med Ses & scheduling. Reviewed red flags. Assessment & Plan (02/09/2020 9:30 AM CDT): Following w/Dr Berger at [facility] every 3 months. following w/monthly therapy appts w/Mellisa Davidson at [facility]. Verified current medications. Will fax lab results to Dr Berger at [facility] once completed. Reports good control of depression w/current regimen. No changes to be made at this time. Reviewed med Ses & scheduling. Reviewed red flags. Assessment & Plan (11/07/2019 10:00 AM CDT): Followed by Dr Berger at [facility]. Reports good control of depression w/current regimen. No changes to be made at this time. Reviewed med Ses & scheduling. Reviewed red flags. Resolved Problems Problem Noted Date Diagnosed Date Resolved Date BMI 27.0-27.9,adult 02/09/2020 08/17/19 Assessment & Plan (05/17/2020 1:11 PM FLEET ADMINISTRATIVE ASSISTANT): Discussed healthy diet and importance of regular [...] we can set up appointment with manager small business/outside residential sales professional. 3. Have an active lifestyle, strive for [...] & Plan (11/07/2019 10:01 AM CDT): 12/22/18 MK=664 HDL=43 VC=956 LDL=88 TC/HDL=4.74 07/04/19 TC=78 HDL=32 RJ=966 FNO=135 TC/HDL=10.3 11/07/19 JW=881 DL=27 DP=681 IUY=369 CALC TC/HDL=12.0 Copy of today's lipid panel given to mrs Mejia. Will have tests verified/repeated at lab today. Aware that atorvastatin will need increased if lipid panel elevated. Immunizations Immunization Administration Dates Next Due COVID-19 mRNA (ImageSpike) 0.3 m L (30 mcg) vaccine (12 [...] often do you attend chur ch or anglican services? More than 4 times per year 06/26/2022 Do you belong to any clubs o r organizations such as cheondoism groups, unions, fraternal or athletic groups, or [...] place to sleep or slept in a penitentiary (including now)? No 06/26/2022 PHQ-9 Answer Date [...] on file Legal Sex Female 12:56 PM FLEET ADMINISTRATIVE ASSISTANT Gender Identity Female 11/17/2024 4:58 PM CDT [...] on file Medical Devices Implanted Type Area Scow Derrick Operator Device Identifier Shelf Expiration Date Model / Serial / Lot Bard Peripheral Vascular [id number] Ultraclip Bard 17ga 12cm 2 Trigger Permanent Ultrasound - [id number] - [id number] Implanted:Qty: 1 on 05/09/2020 by Oc Amin MD at [facility] Breast Left: Breast Bard Peripheral Vascular 11/05/2022 [id number] / [id number] / Bard Peripheral Vascular [id number] Ultraclip Bard 17ga 10cm 2 Trigger Permanent Ultrasound - [id number] - [id number] Implanted:Qty: 1 on 05/09/2020 by Oc Amin MD at [facility] Breast Left: Breast Bard Peripheral Vascular 12/05/2022 [id number] / [id number] / Procedures Procedure Name Priority Date/Time Associated [...] Read Routine (OP Routine) 04/03/2023 12:42 PM FLEET ADMINISTRATIVE ASSISTANT At high risk for osteoporosis Age-related osteoporosis without current pathological fracture SCREENING MAMMOGRAM RIGHT W WESLEY UNILATERAL ONLY Schedule Routine, Read Routine (OP Routine) 03/28/2022 2:03 PM FLEET ADMINISTRATIVE ASSISTANT Personal history of breast cancer Encounter for [...] LAB BLOOD ORDERABLES Fin al Result [facility] Department [place] [address] * Differential, auto (11/28/2024 11:10 AM CDT) Pathologist [facility] Neutrophil abs 5.55 1.50 - 6.50 K/cumm [...] Fin al Result [facility] Department [place] [address] * Iron profile w/ IBC (11/28/2024 11:10 AM CDT) Iron 84 35 - 145 mcg/dL [facility] TIBC 261 250 - 400 mcg/dL [facility] Transferrin saturation 32 20 - 50 % [facility] Blood 11/28/2024 11:1 0 AM CDT 11/28/2024 12:28 PM CDT us Ashu Arevalo MD LAB BLOOD ORDERABLES Fin al Result Performing Organization Address City/[facility]/ZIP Co de Phone Number [facility] [place] [address] * (ABNORMAL) CBC with auto differential (11/28/2024 11:10 AM CDT) WBC 7.36 3.80 - 9.90 K/cumm Hgb 9.8(L) 11.9 - 15.5 g/dL [facility] Hct 30.9(L) 35.6 - 45.5 % [facility] [...] ORDERABLES Fin al Result Performing Organization Address City/[facility] Co de Phone Number [facility] [address] [place] [address] * (ABNORMAL) 1,25 Dihydroxycholecalciferol (11/28/2024 11:10 AM CDT) 1-25-di-OH Vit D <8.0(L) 18 - 78 pg/mL [facility] Lab Comment: ADDITIONAL INFORMATION This test was developed and its performance characteristics determined by [facility] in a manner consistent with CLIA requirements. This test has not been cleared or approved by the U.S. Food and Drug Administration. Test Performed by: [address] [address] Oil Fire Specialist: Starr Jones Ph.D.; CLIA# [id number] Blood 11/28/2024 11:1 0 AM CDT 11/28/2024 12:28 PM CDT Ashu Arevalo MD LAB BLOOD ORDERABLES Fin al Result Performing Organization Address City/[facility] Co de Phone Number [facility] [address] [place] [address] [facility] * Uric acid (11/28/2024 11:10 AM CDT) Uric acid 6.3 2.5 - 7.0 mg/dL [facility] Blood 11/28/2024 11:1 0 AM CDT 11/28/2024 12:28 PM CDT Ashu Arevalo MD LAB BLOOD ORDERABLES Fin al Result Performing Organization Address City/[facility]/ZIP Co de Phone Number [facility] 1 [facility] [employer] [place] [address] * (ABNORMAL) PTH (11/28/2024 11:10 AM CDT) PTH 106(H) 18 - 58 pg/mL [facility] Blood 11/28/2024 11:1 0 AM CDT 11/28/2024 12:28 PM CDT us Ashu Arevalo MD LAB BLOOD ORDERABLES Fin al Result [facility] [place] [address] * (ABNORMAL) Renal function panel (11/28/2024 11:10 [...] LAB BLOOD ORDERABLES Fin al Result [facility] [place] [address] * (ABNORMAL) POCT hemoglobin A1c (10/31/2024 10:40 AM CDT) Hemoglobin A1C, POC 6.3(A) 4.0 - 5.6 % Blood 10/31/2024 10:4 0 AM CDT Inna Yepez EDUCATION ADMINISTRATOR POINT OF CARE TEST ORDERABLES F inal Result * POCT glucose (10/31/2024 10:38 AM CDT) Glucose Blood, POC 190 Normal Fasting 70 - 100, Random <200 mg/dL Blood 10/31/2024 10:3 8 AM CDT Inan Yepez EDUCATION ADMINISTRATOR POINT OF CARE TEST ORDERABLES F inal [...] NP LAB BLOOD ORDERABLES Final Result [facility] [place] [address] * Differential, auto (09/12/2024 9:00 AM CDT) [...] LAB BLOOD ORDERABLES Final Result [facility] of Laboratories [place], [place] [id number] * (ABNORMAL) CBC with auto differential (09/12/2024 [...] ORDERABLES Final Result [facility] [place] [address] * Lipid panel (09/12/2024 9:00 AM CDT) [...] CDT 09/12/2024 9:45 AM CDT Lata Corral EDUCATION ADMINISTRATOR LAB BLOOD ORDERABLES Final Result [facility] [place] [id number] * (ABNORMAL) Comprehensive metabolic panel (09/12/2024 9:00 [...] ORDERABLES Final Result [facility] [place] [address] * Colonoscopy (08/24/2024 7:16 AM CDT) Anatomical Region Laterality Modality Other Narrative Procedure Note Nathan Brooks DO - 08/24/2024 7:[address] [facility] Patient Name: Dana Atkins Procedure Date: 08/24/2024 7:16 AM Date of : 1955 Admit Type: Outpatient Age: 68 Gender: Female Attending MD: Nathan Brooks D.O. Room: [facility] 3 Note Status: Finalized [...] immediately with the 2nd glass ofwater. Florastor Betabrand per labelinstructions. MiraLax 1 capful 1-2 times [...] passed under direct vision. The Pediatric Colonoscope [id number] was introduced through the anus and advanced [...] 7:16 AM Procedure Code(s): --- Professional --- 47909, Colonoscopy, flexible; with biopsy, single or multiple --- Technical --- 41526, Colonoscopy, flexible; with biopsy, single or multiple [...] perforation orabscess without bleeding CPT copyright 2020 [employer]. All rights reserved. The codes documented in this report are preliminary and upon lamination builder reviewmay be revised to meet current compliance requirements. Recognized by the [employer] for promoting quality [...] was last revised 2018. Testing performed by: [facility], [address] [place] [address]., [id number] Creatinine Ur 128.1 mg/dL [facility] Comment: Interpretive Data No reference range established. Current interpretive data was last revised 2018. Testing performed by: [facility], [address] [place] [address]., [id number] Albumin Creatinine Ratio, Ur 1,112(H) 1 - 29 mg/g [facility] Comment:Testing performed by : [facility], [address] [place] [address]., [id number] Urine 02/23/2024 12:1 0 PM CDT 02/23/2024 9:33 PM CDT Ashu Arevalo MD LAB URINE ORDERABLES Fin al Result [facility] [place] [address] * Dexa Axial Skeleton Bone Density 1 or 2 Site (04/03/2023 12:42 PM FLEET ADMINISTRATIVE ASSISTANT) Anatomical Region Laterality Modality Body N/A Other 04/03/2023 1:05 PM FLEET ADMINISTRATIVE ASSISTANT Narrative 04/03/2023 1:05 PM FLEET ADMINISTRATIVE ASSISTANT EXAM DESCRIPTION: DEXA AXIAL SKELETON BONE DENSITY 1 OR MORE SITES REASON FOR STUDY: 67 y/o year old F with given history of: history of AI therapy Osteoporosis screening Post menopausal Scow Derrick Operator/Model: [employer] Discovery SL (S/N [id number]) CLINICAL INFORMATION: Current height: 65 inches Maximum [...] Vini Kaur M.D. MF: TOBIN Report ID: [id number] Reading Location: [place] [address] Procedure Note Vini Kaur MD - 04/03/2023 EXAM DESCRIPTION: DEXA AXIAL SKELETON BONE DENSITY 1 OR MORE SITES REASON FOR STUDY: 67 y/o year old F with given history of: history ofAI therapy Osteoporosis screening Post menopausal Scow Derrick Operator/Model: [employer] Discovery SL (S/N [id number]) CLINICAL INFORMATION: Current height: 65 inches Maximum [...] Vini Kaur M.D. MF: TOBIN Report ID: [id number] Reading Location: [id number] Shaniqua Friaseleanor ENGEL IMG DXA PROCEDURES Fi nal Result * Screening Mammogram Right W Wesley Unilateral Only (03/28/2022 2:03 PM FLEET ADMINISTRATIVE ASSISTANT) Anatomical Region Laterality Modality Breast Right Mammography Narrative 03/28/2022 3:58 PM FLEET ADMINISTRATIVE ASSISTANT Mammogram Technique: Right Breast Digital Breast Tomosynthesis, Unilateral C-view 2D Screening mammogram. Views obtained: bilateral craniocaudal and bilateral mediolateral oblique. Computer Aided Detection was performed. Mammogram Findings: The present examination has been compared to prior imaging studies performed on 02/16/2020, at [facility]. [facility] on 04/17/2020 and 05/09/2020, and at [...] prior imaging studies performed on 02/16/2020, at [facility]. [facility] on 04/17/2020 and 05/09/2020, and at [...] Recently Relevant to Health Maintenance Insurance [facility] UHC MEDICARE ADVANTAGE [facility] MEDICARE ADVANTAGE [facility] MEDICARE ADVANTAGE Advance Directives For more information, please contact: [phone] * Full Code (Latest Code Status on [...] 8:34 AM 10/18/2018 8:35 AM Care Teams Ancient Art Curator Relationship Specialty Start Date End Date Vijay Truong MD [address] [place] [address] PCP - General 08/08/16 Rubén Miranda MD PhD [address] [place] [address] Radiation Oncologist Radiation Oncology 07/27/20 Lila James MD [address] [address] Referring Physician Surgical Oncology 07/27/20 Emile Berger MD [address] [place] [address] Referring Physician Psychiatry & Neurology 02/05/22 Ash Fraga MD [address] [place] [address] Medical Oncologist/Production Statistical Clerk Hematology and Oncology 06/11/22
[2024-12-07 14:48] LABS: INR 1.0; Prothrombin Time 13.5 Seconds (11.1-14.7)
[2024-12-07 14:49] LABS: Partial Thromboplastin Time 26.3 Seconds (22.3-36.8)
--- NOTE | 2024-12-07 14:51 | ED.GENADULT ---
HPI - General Adult General Chief complaint: Extremity Problem,Nontraumatic Stated complaint: left arm cellulitis Time Seen by Provider: 12/07/24 14:03 History of Present Illness HPI narrative: Patient is a 68-year-old female who presents ER with swelling to her left upper extremity. Mild discomfort. Mainly in the form. Worsening over last few days. Concerned may be recurrent cellulitis. She had something similar in the middle of October after she had had a vascular graft in the arm. She is trying to get follow-up with her vascular surgeon for further assessment of the graft. She does not need dialysis to this area yes. No fevers or chills. No chest pain. Related Data Home Medications ?Medication ?Instructions ?Recorded ?Confirmed ?Last Taken ?Type aspirin 81 mg tablet,delayed 81 mg PO DAILY 09/15/22 10/14/24 Unknown History release atorvastatin 40 mg tablet 40 mg PO DAILY 09/15/22 10/14/24 10/14/24 History clopidogrel 75 mg tablet 75 mg PO DAILY 09/15/22 10/14/24 10/14/24 History duloxetine 30 mg capsule,delayed 30 mg PO BID 09/15/22 10/14/24 10/14/24 History release letrozole 2.5 mg tablet 2.5 mg PO DAILY 09/15/22 10/14/24 10/14/24 History lisinopril 10 mg tablet 20 mg PO DAILY 09/15/22 10/14/24 10/14/24 History sertraline 50 mg tablet (Zoloft) 50 mg PO DAILY 09/15/22 10/14/24 10/14/24 History trazodone 100 mg tablet 100 mg PO HS 09/15/22 10/14/24 10/14/24 History calcitriol 0.25 mcg capsule 0.25 mcg PO .MWF 10/14/24 10/14/24 10/12/24 History calcium carb-ergocalciferol (vit 1 tablet PO DAILY 10/14/24 10/14/24 10/14/24 History D2) 600 mg calcium-200 unit tablet insulin glargine 100 unit/mL (3 18 unit subcut QPM 10/14/24 10/14/24 10/13/24 History mL) subcutaneous pen (Lantus Solostar U-100 Insulin) pantoprazole 40 mg tablet,delayed 40 mg PO DAILY 10/14/24 10/14/24 10/14/24 History release pen needle, diabetic 31 gauge x 10/14/24 10/14/24 Unknown History 09/23 (Sure Comfort Pen Needle) Allergies Allergy/AdvReac Type Severity Reaction Status Date / Time No Known Allergies Allergy Verified 12/07/24 14:03 Review of Systems Review of Systems: All systems reviewed & are unremarkable except as noted in HPI and below Constitutional: Constitutional: Reports no additional constitutional complaints Cardiovascular: Cardiovascular: Reports no additional cardiovascular complaints Respiratory: Respiratory: Reports no additional respiratory complaints Musculoskeletal: Musculoskeletal: Reports no additional musculoskeletal complaints Integumentary/Breasts: Skin/Breast: Reports system reviewed and no additional complaints, except as docu [facility] Past Medical History Medical History (Updated 12/07/24 @ 15:37 by Oc Nath MD) Abnormal colonoscopy history of colon polyps August 2024 Breast cancer GERD (gastroesophageal reflux disease) Hyperlipidemia Essential hypertension CVA (cerebral vascular accident) Chronic kidney disease Diabetic peripheral neuropathy Diabetes mellitus Surgical History Surgical History History of cardiac catheterization Status post creation of arteriovenous fistula History of total abdominal hysterectomy and bilateral salpingo-oophorectomy Family History Family History Father Lung cancer Grandparent Diabetes mellitus Social History Social History Social History: Code status: Full code (per EMR) Surrogate decision maker: Alvaro Galaviz (son) Smoking packs per day: 2 Smoking cigarettes per day: 40.0 Smoking status: Former smoker Tobacco type: cigarettes Alcohol intake: never Substance use: never Do You Feel Safe in your Home?: Yes Lack of Transportation: No Lack of Food: Never True Current Housing: I Have Housing Concerned About Future Housing: No Difficulty Paying Gas/Electric Bills: No Difficulty Paying for Meds: YES Currently Unemployed: No Education: High School Diploma/GED Difficulty w/ Childcare or Family Care: No Additional living arrangements comments: She has lived with her son since approximately 2019. She ambulates with a walker. 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 She raised 3 sons. Spiritual care concerns: Yes Exam Narrative: GENERAL: Well-appearing, well-nourished, and in no acute distress. HEAD: Normocephalic, atraumatic. ENT: Mucous membranes moist. CHEST: Clear to auscultation. No respiratory distress. HEART: Regular rate and rhythm. Normal peripheral pulses. EXTREMITIES: Normal range of motion. Mild edema left volar forearm. +thrill LUE shunt. SKIN: Warm, dry, mild left forearm erythema. NEURO: Alert and oriented x3. PSYCH: Normal mood and affect. Course Course Emergency Course: Patient resting comfortably. Informed of results. Discharge home. Possible early cellulitis will prescribe Keflex. Recommend follow-up with her vascular surgeon, likely edema related to her surgery/graft. Vital Signs Vital signs: Vital Signs Temperature 97.8 F 12/07/24 14:00 Pulse Rate 76 12/07/24 14:00 Respiratory Rate 20 12/07/24 14:00 Blood Pressure 168/76 H 12/07/24 14:00 Pulse Oximetry 95 12/07/24 14:00 Oxygen Delivery Room Air 12/07/24 14:00 Temperature 97.8 F 12/07/24 14:00 Pulse Rate 76 12/07/24 14:00 Respiratory Rate 20 12/07/24 14:00 Blood Pressure 168/76 H 12/07/24 14:00 Pulse Oximetry 95 12/07/24 14:00 Oxygen Delivery Room Air 12/07/24 14:00 Medical Decision Making Vital Signs Vital Signs: Vital Signs Temperature 97.8 F 12/07/24 14:00 Pulse Rate 76 12/07/24 14:00 Respiratory Rate 20 12/07/24 14:00 Blood Pressure 168/76 H 12/07/24 14:00 Pulse Oximetry 95 12/07/24 14:00 Oxygen Delivery Room Air 12/07/24 14:00 Temperature 97.8 F 12/07/24 14:00 Pulse Rate 76 12/07/24 14:00 Respiratory Rate 20 12/07/24 14:00 Blood Pressure 168/76 H 12/07/24 14:00 Pulse Oximetry 95 12/07/24 14:00 Oxygen Delivery Room Air 12/07/24 14:00 Lab Data 12/07/24 14:31 12/07/24 14:31 Labs: Lab Results 12/07/24 Range/Units 14:31 WBC 8.0 (4.5-10.0) K/mm3 RBC 2.98 L (4.2-5.4) M/mm3 Hgb 9.0 L (12.0-15.0) g/dL Hct 28.0 L (37.0-47.0) % MCV 94.0 (80-100) fl MCH 30.2 (26-34) pg MCHC 32.1 (32-36) g/dl RDW 14.5 (11.5-14.5) % Plt Count 242 (150-375) k/mm3 MPV 9.0 (7.4-10.4) fl Immature Gran % (Auto) 0.5 (0-0.5) % Neut % (Auto) 82.3 H (45.5-73.1) % Lymph % (Auto) 10.2 L (18.3-44.2) % Cooper % (Auto) 6.0 (2.6-8.5) % Eos % (Auto) 0.5 (0-4.4) % Baso % (Auto) 0.5 (0.2-1.2) % Lymph # (Auto) 0.81 L (0.9-3.2) K/mm3 Cooper # (Auto) 0.5 (0.1-0.6) K/mm3 Eos # (Auto) 0.0 (0-0.3) K/mm3 Baso # (Auto) 0.0 (0.0-0.1) K/mm3 Abs Immat Gran (auto) 0.04 H (0.00-0.031) K/mm3 Absolute Neuts (auto) 6.6 (1.3-6.7) K/mm3 Absolute Nucleated RBC 0.000 (0.0-0.012) K/mm3 Nucleated RBC % 0.0 (0.0-0.2) % PT 13.5 (11.1-14.7) Seconds INR 1.0 APTT 26.3 (22.3-36.8) Seconds Sodium 133 L (137-145) mmol/L Potassium 4.4 (3.4-5.0) mmol/L Chloride 102 (98-107) mmol/L Carbon Dioxide 22 (22-30) mmol/L Anion Gap 9 (4-12) mmol/L BUN 70 H (7-17) mg/dL Creatinine 4.17 H (0.7-1.0) mg/dL Estim Creat Clear Calc 11 ml/min Estimated GFR 11 L (59 - ) Glucose 93 (65-110) mg/dL Calcium 8.8 (8.4-10.2) mg/dL Total Bilirubin 0.3 (0.2-1.3) mg/dL AST 27 (14-36) U/L ALT 16 (6-35) U/L Alkaline Phosphatase 101 (38-126) U/L Total Protein 6.9 (6.3-8.2) g/dL Albumin 3.6 (3.5-5.1) g/dL Imaging Data Radiologist's impression: ITS Impressions Venous Doppler Study 12/07/24 15:21 IMPRESSION: No left upper extremity deep venous thrombosis. Discharge Plan Discharge Clinical Impression: Cellulitis of arm, left Patient Disposition: Home Condition: Stable Instructions: Antibiotic Form, Cellulitis (ED) Additional Instructions: Take antibiotics to treat a possible infection of your forearm. He may also apply cool compresses. Follow-up with your vascular surgeon for further evaluation. Patient Language: Honduran Prescriptions: New cephalexin 500 mg capsule 500 mg PO Q12H Qty: 20 0RF No Action calcium carbonate-vitamin D2 600 mg calcium- 200 unit tablet 1 tablet PO DAILY calcitriol 0.25 mcg capsule 0.25 mcg PO .MWF atorvastatin 40 mg tablet 40 mg PO DAILY clopidogrel 75 mg tablet 75 mg PO DAILY aspirin 81 mg tablet,delayed release (DR/EC) 81 mg PO DAILY trazodone 100 mg tablet 100 mg PO HS lisinopril 10 mg tablet 20 mg PO DAILY letrozole 2.5 mg tablet 2.5 mg PO DAILY sertraline [Zoloft] 50 mg tablet 50 mg PO DAILY duloxetine 30 mg capsule,delayed release(DR/EC) 30 mg PO BID pantoprazole 40 mg tablet,delayed release (DR/EC) 40 mg PO DAILY (DME) pen needle, diabetic [Sure Comfort Pen Needle] 31 gauge x 5/16 needle MISCELLANEOUS insulin glargine [Lantus Solostar U-100 Insulin] 100 unit/mL (3 mL) insulin pen 18 unit SUBCUT QPM amoxicillin-pot clavulanate [Augmentin] 500-125 mg Tablet 1 tablet PO Q12HR 11 Days Qty: 22 0RF doxycycline hyclate 100 mg tablet 100 mg PO BID 11 Days Qty: 22 0RF Follow-up/Referrals: Harms,Vijay Ortiz M.D. [Primary Care Provider] - 1 Week
[2024-12-07 15:02] LABS: Alanine Aminotransferase 16 U/L (6-35); Albumin Level 3.6 g/dL (3.5-5.1); Alkaline Phosphatase 101 U/L (38-126); Anion Gap 9 mmol/L (4-12); Aspartate Amino Transferase 27 U/L (14-36); Bilirubin,Total 0.3 mg/dL (0.2-1.3); Blood Urea Nitrogen 70 mg/dL (7-17); Calcium 8.8 mg/dL (8.4-10.2); Carbon Dioxide 22 mmol/L (22-30); Chloride 102 mmol/L (98-107); Estimated CRCL calculation 11 ml/min; Estimated Glomerular Filt Rate 11; Glucose 93 mg/dL (65-110); Potassium 4.4 mmol/L (3.4-5.0); Sodium 133 mmol/L (137-145); Total Protein 6.9 g/dL (6.3-8.2)
[2024-12-07 15:54] VITALS: BP 151/70; PULSE 75; RESP 18; O2SAT 100
== END 2024-12-07 15:55 | disposition home or self-care (01) ==
PROVIDERS: Emergency Provider Emergency Medicine; PCP Family Medicine
DX: L03.114 Cellulitis of left upper limb (principal); E11.22 Type 2 diabetes mellitus with diabetic chronic kidney disease; I12.9 Hypertensive chronic kidney disease with stage 1 through stage 4 chronic kidney disease, or unspecified chronic kidney disease; N18.9 Chronic kidney disease, unspecified; E11.42 Type 2 diabetes mellitus with diabetic polyneuropathy; E78.5 Hyperlipidemia, unspecified; K21.9 Gastro-esophageal reflux disease without esophagitis; Z85.3 Personal history of malignant neoplasm of breast; Z86.73 Personal history of transient ischemic attack (TIA), and cerebral infarction without residual deficits; Z87.891 Personal history of nicotine dependence; Z79.02 Long term (current) use of antithrombotics/antiplatelets; Z79.899 Other long term (current) drug therapy; Z79.82 Long term (current) use of aspirin; Z79.4 Long term (current) use of insulin
CPT/HCPCS: 36415; 80053; 85025; 85610; 85730; 93971; 99284

== ENCOUNTER 2025-02-22 19:00 | Emergency (ER) | payer MEDICARE, MEDICAID, SELFPAY ==
--- OUTSIDE RECORDS SUMMARY | 2023-09-04 06:10 | XMS_ITS | Continuity of Care Document ---
Author Organization [facility] Address [address] [place] [id number] Phone Care Team Providers Care Chorus Master Name Role Phone Joaquín CHING, Elsa Unavailable Unavailable Allergies, Adverse Reactions, Alerts Substance Reaction Status Criticality No Known Allergies Active No Inform ation Medications Medication Instructions Dosage Effective Dates (start - stop) Status Comments letrozole 2.5 mg tablet - Active pantoprazole 40 mg tablet,delayed release - Active Lantus Solostar U-100 Insulin 100 unit/mL (3 mL) subcutaneous pen - Active hydroxyzine pamoate 50 mg capsule - Active risperidone 2 mg tablet - Active sertraline 50 mg tablet - Active trazodone 100 mg tablet - Active aspirin 81 mg tablet,delayed release TAKE 1 TABLET BY MOUTH EVERY DAY - Active lisinopril 10 mg tablet TAKE 2 TABLETS BY MOUTH EVERY DAY - Active amoxicillin 500 mg capsule TAKE 1 CAPSULE BY MOUTH THREE TIMES A DAY - Active Procedures Procedure Date CONTRAST, 300/ML, PER ML Radiation Exposure Documented INJ PROC EXTREMITY VENOGRAPHY VENOGRAPHY EXT BILAT DUPLEX UPPER EXTREM ARTERIES BILAT DUPL SCAN EXTREMITY VEINS COMPLETE To Be Coded Injection ext venography Vein x-ray arms/legs Vein x-ray chest Upper extremity study Injection ext venography Vein x-ray arms/legs Vein x-ray chest Upper extremity study Advance Directives Directive Yes / No Effective Date File Name No Information Encounters Encounter Description Practice Location Reason(s) For Visit Diagnoses Date Provider Providers Copied on Encounter [facility], [address] [place] [address], [id number], tel:[phone] [facility] No Information Joaquín Hunter. [address] [place] [address], [id number], . tel:[phone] [facility], [address] [place] [address], [id number], tel:[phone] [facility] Joaquín Wrightca. [address] [place] [address], [id number], . tel:[phone] Referring Provider: Ashu Yusuf, [address] [place] [address] [address], [place], [address]. tel:[phone] [facility], [address] [place] [address], [id number], tel:[phone] [facility] Joaquín Wrightca. [address] [place] [address], [id number], . tel:[phone] Referring Provider: Ashu Yusuf, [address] [facility] [address], [place], [address]. tel:[phone] As per patient privacy policy some of the clinical information may not be visible. Family History Family Member Type Diagnosis Age At Onset No Information Payers Payer name Insurance type Covered alliance party ID Authoriza tion(s) [facility] [employer] CI [id number] Social History Type Description Quantity Date Captured Comments Sex Female Smoking Status No Information Sexual Orientation Straight or heterosexual Gender Identity Female Chief Complaint And Reason For Visit No Information Reason For Referral Reason For Referral No Information Plan Of Treatment Date Type Action Status Future Order: Radiology Order Up per Body Flouroscopy (19646X), Ordered on: Ordered History Of Present Illness Encounter Date Complaint History Of Prese nt Illness No Information Functional Status Date Functional Assessmen t No Information Instructions Date Instruction Additional Infor mation No Information Assessments Type Assessment Date No Information Patient Care Teams Name Effective Dates (start - stop) Status Members No Information
--- NOTE | ~2025-02-22 | XR_ITS ---
XR chest 1V portable INDICATION:left arm swelling . REFERENCE: None FINDINGS: A single AP of the chest demonstrates normal heart size. The lungs are clear. There is no evidence of pneumothorax or pleural effusion. IMPRESSION: No acute pulmonary findings. Reviewed, dictated and finalized at location S.
--- NOTE | ~2025-02-22 | US_ITS ---
US venous doppler UE LT HISTORY: Pain and swelling in the left upper extremity. COMPARISON: None available. TECHNIQUE: Acute thrombus within the left axillary and basilic vein. The deep veins of the left upper extremity were evaluated with Duplex Doppler, color Doppler, and high-resolution B-mode sonography. Evaluated veins include the subclavian, axillary and brachial veins. The superficial veins including the cephalic, radial and ulnar veins were also evaluated. Cursory examination of the internal jugular veins were obtained bilaterally. Compression and augmentation maneuvers were performed. FINDINGS: The deep veins of the left upper extremity were compressible and demonstrated spontaneous phasic waveforms with an appropriate response to augmentation maneuvers. The visualized veins demonstrated normal patency. IMPRESSION: Thrombus within the left axillary and left basilic vein.. Reviewed, dictated and finalized at location S.
[2025-02-22 19:30] VITALS: BP 173/63; PULSE 82; RESP 21; TEMP 36.7; O2SAT 99
--- NOTE | 2025-02-22 21:23 | ECG_ITS ---
Test Date: 2025-02-22 21:48:46 Measurements Intervals [place] Rate: 77 P: -3 CA: 145 QRS: 3 QRSD: 87 T: 50 QT: 374 QTc: 425 Interpretive Statements SINUS RHYTHM VOLTAGE CRITERIA FOR LEFT VENTRICULAR HYPERTROPHY BORDERLINE ECG Compared to ECG 10/14/2024 15:58:14 No significant changes Electronically Signed On 02-23-2025 05:11:38 CDT by Alexandr Villela D.O.
[2025-02-22 21:32] VITALS: BP 231/90; PULSE 79; RESP 21; O2SAT 100
[2025-02-22 21:33] VITALS: PULSE 78; RESP 15; O2SAT 99
[2025-02-22 21:42] LABS: Hematocrit 26.3 % (37.0-47.0); Hemoglobin 8.5 g/dL (12.0-15.0); Immature Granulocyte Percent A 0.5 % (0-0.5); Lymphocytes Absolute Auto 1.21 K/mm3 (0.9-3.2); Mean Corpuscular HGB Conc 32.3 g/dl (32-36); Mean Corpuscular Hemoglobin 29.9 pg (26-34); Mean Corpuscular Volume 92.6 fl (80-100); Nucleated Red Blood Cells Absolute Auto 0.000 K/mm3 (0.0-0.012); Nucleated Red Blood Cells Perc 0.0 % (0.0-0.2); Platelet Count Result 249 k/mm3 (150-375); Red Blood Count 2.84 M/mm3 (4.2-5.4); White Blood Count 9.3 K/mm3 (4.5-10.0)
[2025-02-22 21:47] VITALS: BP 221/89; PULSE 79; RESP 16; O2SAT 98
[2025-02-22 21:51] LABS: Alanine Aminotransferase 18 U/L (6-35); Albumin Level 3.5 g/dL (3.5-5.1); Alkaline Phosphatase 99 U/L (38-126); Anion Gap 11 mmol/L (4-12); Aspartate Amino Transferase 27 U/L (14-36); Bilirubin,Total 0.2 mg/dL (0.2-1.3); Blood Urea Nitrogen 77 mg/dL (7-17); Calcium 8.4 mg/dL (8.4-10.2); Carbon Dioxide 23 mmol/L (22-30); Chloride 101 mmol/L (98-107); Estimated CRCL calculation 10 ml/min; Estimated Glomerular Filt Rate 9; Glucose 180 mg/dL (65-110); Magnesium 2.0 mg/dL (1.6-2.3); Potassium 4.7 mmol/L (3.4-5.0); Sodium 135 mmol/L (137-145); Total Protein 7.0 g/dL (6.3-8.2)
[2025-02-22 21:53] LABS: INR 0.9; Partial Thromboplastin Time 24.6 Seconds (22.3-36.8); Prothrombin Time 12.4 Seconds (11.1-14.7)
[2025-02-22 22:03] LABS: NT Pro B Type Natriuretic Pept 3470 pg/mL (19.9-100); Troponin I 0.015 ng/mL (0.000-0.034)
--- OUTSIDE RECORDS SUMMARY | 2025-02-22 22:03 | XMS_ITS | Clinical Summary ---
Author Organization [facility] Address [address] [place] [id number] Care Team Providers Care Rehabilitation Medicine Physician Name Role Phone Vijay Truong MD Primary Care Provider [phone] Rubén Miranda MD PhD Unavailable [phone] Lila James MD Unavailable Emile Berger MD Unavailable [phone] Ash Fraga MD Unavailable [phone] Allergies No known active allergies Medications blood-glucose [...] (six) hours as needed for pain Active amoxicillin-clavulan ate (AUGMENTIN) 500-125 mg per tablet Take 1 tablet (500 mg of amoxicillin total) by mouth every 12 (twelve) hours 10/19/19 25 Active doxycycline 100 mg tablet 10/19/19 25 Active aspirin 81 mg enteric coated tablet Take 1 tablet (81 mg total) by mouth daily 90 tablet 3 10/26/[address] (CYMBALTA) 30 mg capsuleIndications: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, without psychotic features ([facility]) Take 1 capsule (30 mg total) by mouth 2 (two) times a day 180 capsule 10/26/19 25 026 Active traZODone (DESYREL) 100 mg tablet Take 1 tablet (100 mg total) by mouth nightly 90 tablet 4 10/26/19 25 Active clopidogreL (PLAVIX) 75 mg tablet Take 1 tablet (75 mg total) by mouth daily 90 tablet 3 10/26/19 25 Active atorvastatin (LIPITOR) 40 mg tabletIndications:Dy slipidemia associated with type 2 diabetes mellitus (HCC) Take 1 tablet (40 mg total) by mouth daily 90 tablet 4 10/26/19 25 Active lisinopriL (PRINIVIL,ZESTRIL) 10 mg tabletIndications:Hy pertension associated with diabetes (HCC) Take 2 tablets (20 mg total) by mouth daily 180 tablet 3 10/26/19 25 Active bisacodyl EC (DULCOLAX EC) 5 mg EC tabletIndications:co nstipation Take 1 tablet (5 mg total) by mouth daily as needed for constipation E11.65 30 tablet 11 10/26/19 25 Active insulin glargine 100 unit/mL (3 mL) pen for injectionIndications :Type 2 diabetes mellitus with hypoglycemia without coma, with long-term current use of insulin (HCC) Inject 14 Units under the skin nightly E11.65 15 mL 11 11/30/19 25 Active calcitRIOL (ROCALTROL) 0.25 mcg capsule Take 1 capsule (0.25 mcg total) by mouth daily 30 capsule 2 12/09/19 25 Active Active Problems Problem Noted Date Diagnosed [...] 03/17/2024 Assessment & Plan (03/17/2024 7:38 AM WET PROCESS TECHNICIAN): Stable. Following with pulmonology and will continue [...] monitor. Assessment & Plan (04/27/2024 1:21 PM WET PROCESS TECHNICIAN): This is a chronic condition which is not at goal on arrival. At goal after rest. Goal is less than 140/90 Continue lisinopril, Lasix Encouraged to monitor weight and B/P at home. Assessment & Plan (03/17/2024 7:39 AM WET PROCESS TECHNICIAN): Normotensive. Continue lisinopril. Will continue to monitor. Colon cancer screening 03/17/2024 Assessment & Plan (03/17/2024 7:39 AM WET PROCESS TECHNICIAN): Referral to GI for screening colonoscopy placed History of colonic polyps 03/17/2024 Encounter for screening colonoscopy 03/17/2024 Anemia of chronic renal failure, stage 4 (severe ) 03/07/2024 Assessment & Plan (09/15/2024 1:29 PM CDT): Renal function stable. Anemia improving. Continues following closely with Nephrology. Assessment & Plan (03/17/2024 7:36 AM WET PROCESS TECHNICIAN): Stable. Following with Nephrology and will continue to do so. 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 We reviewed medications, [...] 21 Assessment & Plan (04/09/2021 5:57 PM WET PROCESS TECHNICIAN): Vaccine given in office today. Reviewed possible [...] cooking Assessment & Plan (05/16/2022 5:25 PM WET PROCESS TECHNICIAN): Weights stable. Working on diet and exercise, previously riding stationary bike. Assessment & Plan (01/17/2022 10:16 AM CDT): Discussed healthy diet and importance of regular physical activity. Assessment & Plan (10/13/2021 1:35 PM CDT): Congratulated patient on her efforts to improve diet. Discussed healthy diet and importance of regular physical activity. Assessment & Plan (07/11/2021 11:00 AM WET PROCESS TECHNICIAN): Discussed healthy diet and importance of regular physical activity. Assessment & Plan (04/09/2021 5:57 PM WET PROCESS TECHNICIAN): Discussed healthy diet and importance of regular [...] bedtime. Assessment & Plan (05/17/2020 1:10 PM WET PROCESS TECHNICIAN): Omeprazole refilled. Reviewed provocative foods to avoid: caffeine, citrus, ETOH, carbonated drinks, fried/fatty/fast foods & rich/creamy sauces. Reviewed diet/exercise recommendations: 20-30min physicaly activity daily at minimum. Reviewed med Ses & scheduling. Weight loss will help improve GERD sxs. Keep HOB elevated 30 degrees & not eat 2-3 hrs before bedtime. Regional lymph node metastasis present Assessment & Plan (05/17/2020 1:09 PM WET PROCESS TECHNICIAN): L axillary lymph node. Anxious re: new L breast ca dx. Anxious re: pending treatments. Discussed at length during appt. Copies of recent screening/diagnostic mamm & ultrasound of L breast given to mrs Mejia. Discussed lymph node involvement. Referral placed to Dr James at [facility]. Aware that her office will call her [...] from 05/09/2020:Stage IIA(cT2, cN1(f), cM0, G1, ER+, WY+, HER2-) - Signed by Rubén Miranda MD PhD on 07/27/2020 Pathologic stage from 07/02/2020:Stage IA(pT2, pN1a(sn), cM0, G1, ER+, WY+, HER2- ) - Signed by Rubén Miranda MD PhD on 07/27/2020 Assessment & Plan (01/17/2022 10:19 AM CDT): Assessment & Plan (04/09/2021 6:01 PM WET PROCESS TECHNICIAN): Follows with oncology, continues letrozone. To have [...] receptor positive, progesterone receptor positive, her 2 Kalyen not amplified. Recommended complete L mastectomy. Discussed [...] necessary. Assessment & Plan (05/17/2020 1:08 PM WET PROCESS TECHNICIAN): Anxious re: new L breast ca dx. Anxious re: pending treatments. Discussed at length during appt. Copies of recent screening/diagnostic mamm & ultrasound of L breast given to mrs Mejia. Discussed lymph node involvement. Referral placed to Dr James at [facility]. Aware that her office will call her [...] continue. Assessment & Plan (04/27/2024 1:21 PM WET PROCESS TECHNICIAN): This is a chronic condition which is at goal . Goal is LDL less than 70 Continue atorvastatin Encouraged to eat healthy, include fresh fruits and vegetables daily and avoid eating fried foods more than once per week. Assessment & Plan (03/17/2024 7:36 AM WET PROCESS TECHNICIAN): Stable. Continue atorvastatin. Tolerating without side effects. Will continue to monitor. Assessment & Plan (01/13/2024 12:49 PM CDT): This is a chronic condition which is at goal . Goal is LDL less than 70 Continue atorvastatin Encouraged to eat healthy, include fresh fruits and vegetables daily and avoid eating fried foods more than once per week. Assessment & Plan (04/06/2023 3:43 PM WET PROCESS TECHNICIAN): This is a chronic condition which is [...] prescribed. Assessment & Plan (06/19/2022 2:10 PM WET PROCESS TECHNICIAN): This is a chronic condition which is not at goal of LDL less than 70 Continue atorvastatin Encouraged to eat healthy, include fresh fruits and vegetables daily and avoid eating fried foods more than once per week. Encouraged to take medications as prescribed. Assessment & Plan (05/16/2022 5:17 PM WET PROCESS TECHNICIAN): Continue current regimen. Assessment & Plan (01/17/2022 10:16 AM CDT): 01/10/22 TC 186 TRG 421 HDL 29 LDL 90 Continue current regimen, recommended fish oil supplementation and following low fat diet. Will repeat labs prior to next office visit. Assessment & Plan (10/13/2021 1:35 PM CDT): Continue atorvastatin daily. Assessment & Plan (07/11/2021 11:16 PM WET PROCESS TECHNICIAN): Reviewed previous lipid panel. Doing well on atorvastatin 40 mg daily, denies any medication side effects. Assessment & Plan (04/09/2021 6:00 PM WET PROCESS TECHNICIAN): Results for orders placed or performed in [...] & Plan (08/16/2020 11:24 AM CDT): 12/22/18 HS=615 HDL=43 MX=903 LDL=88 TC/HDL=4.74 07/04/19 TC=78 HDL=32 CR=237 TEZ=812 TC/HDL=10.3 11/07/19 CD=853 DL=27 NY=382 FHF=150 CALC TC/HDL=12.0 to lab 02/09/20 FK=592 HDL=38 AW=356 LDL=92 TC/HLD=5.0 The 10-year ASCVD risk score [...] flags. Assessment & Plan (05/17/2020 1:10 PM WET PROCESS TECHNICIAN): We will check labs and make adjustments [...] exams. Assessment & Plan (05/16/2022 5:23 PM WET PROCESS TECHNICIAN): Lab Results Component Value Date HGBA1C 9.9 [...] 04/09/2021 Assessment & Plan (07/11/2021 11:17 PM WET PROCESS TECHNICIAN): Lab Results Component Value Date HGBA1C 10.5 07/11/2021 HGBA1C 9.7 04/09/2021 HGBA1C 11.7 01/07/2021 Patient agreeable to meet with barrel lathe operator inside to discuss healthy food choices to improve blood glucose. Referral placed. Will start basal insulin 10 units nightly, reviewed medication administration, follow up in 3 months and bring copy of blood sugar log to next apt. Reviewed s/s of hypo/hypergylcemia. Assessment & Plan (04/09/2021 6:08 PM WET PROCESS TECHNICIAN): Lab Results Component Value Date HGBA1C 9.7 [...] month Assessment & Plan (05/17/2020 1:09 PM WET PROCESS TECHNICIAN): Lab Results Component Value Date HGBA1C 9.6 [...] evaluation. Last eye exam december 2018 at [facility]. Letter sent to get copy of [...] Lasix Assessment & Plan (04/06/2023 3:42 PM WET PROCESS TECHNICIAN): This is a chronic condition which is [...] atorvastatin. Assessment & Plan (06/19/2022 2:08 PM WET PROCESS TECHNICIAN): This is a chronic condition which is [...] regimen. Assessment & Plan (04/06/2023 3:43 PM WET PROCESS TECHNICIAN): This is a chronic condition which is [...] prescribed. Assessment & Plan (06/19/2022 2:09 PM WET PROCESS TECHNICIAN): This is a chronic condition which is at goal of less than 140/90 Hypotension 94/48 Personally reviewed labs. Decrease lisinopril to 10 mg p.o. daily Encouraged to take medications as prescribed. Assessment & Plan (05/16/2022 5:23 PM WET PROCESS TECHNICIAN): Blood pressure well controled today. No changes in current regimen. Assessment & Plan (01/17/2022 10:14 AM CDT): Condition is stable Discussed/ordered labs, encouraged healthy, low carbohydrate lifestyle and at least 150min/week of exercise, continue on lisinopril 20 mg daily. BP checked by myself 118/80 Assessment & Plan (10/13/2021 1:41 PM CDT): Stable; continue current medication regimen. Assessment & Plan (07/11/2021 11:17 PM WET PROCESS TECHNICIAN): BP well controlled today. No changes in current medication regimen. Assessment & Plan (04/09/2021 6:10 PM WET PROCESS TECHNICIAN): Patient encouraged to take BP medication as [...] received. Assessment & Plan (05/17/2020 1:09 PM WET PROCESS TECHNICIAN): Does not check BP at home. The [...] (09/29/2018): Added automatically from request for surgery [id number] Fibromyalgia 01/01/2017 Assessment & Plan (03/17/2024 7:36 AM WET PROCESS TECHNICIAN): Stable on duloxetine. No changes. Will continue [...] day Assessment & Plan (07/11/2021 11:04 AM WET PROCESS TECHNICIAN): [facility] at [facility] [...] SI/HI. Assessment & Plan (04/09/2021 10:47 AM WET PROCESS TECHNICIAN): PHQ=19 (worsening with breast CA diagnosis) Hydroxyzine [...] 08/17/19 Assessment & Plan (05/17/2020 1:11 PM WET PROCESS TECHNICIAN): Discussed healthy diet and importance of regular [...] healthier, we can set up appointment with tie inspector/floor technician. 3. Have an active lifestyle, strive [...] & Plan (11/07/2019 10:01 AM CDT): 12/22/18 AW=482 HDL=43 WA=641 LDL=88 TC/HDL=4.74 07/04/19 TC=78 HDL=32 CG=565 IQW=184 TC/HDL=10.3 11/07/19 EW=753 DL=27 KF=690 WDH=960 CALC TC/HDL=12.0 Copy of today's lipid panel given to mrs Mejia. Will have tests verified/repeated at lab today. Aware that atorvastatin will need increased if lipid panel elevated. Encounters Date Type Department Care Team Description 12/07/2024 Orders Only [facility] Information Management [address] [place] [address] Scanning, Provider 12/07/2024 ACO Quality [facility] Accountable Care Organization [address] [place] [address] Sandie Murrieta MA 12/07/2024 Orders Only [facility] [address] [phone] Vijay Truong MD 12/07/2024 Nurse Triage [facility] [address] [place] [address] Vijay Truong MD 11/28/2024 11:00 AM CDT Lab [address] [phone] from Last 3 Months Immunizations Immunization Administration Dates Next Due COVID-19 mRNA ([employer]) 0.3 m L (30 mcg) vaccine (12 [...] Trivalent, IM (MDV) 02/12/2014 Influenza, Unspecified 02/01/2023,2018,02/17/2019,02/08,02/08/2017 [employer] ([employer]) SARS-CoV-2 Vaccination 09/19/2020, 09/17/2020,09/17/2020 Pneumococcal Conjugate [...] (hyperlipidemia) Low bone mass DM (diabetes mellitus) Diabetic retinopathy (HCC) ESRD (end stage renal disease) Family History Medical History Relation Name [...] oz pur e alcohol) Social Connection and Isolation Panel Answer Date Recorded In a typical week, how many times do you talk on the phone with family, friends, or neighbors? More than three times a week 06/26/2022 How often do you get togethe r with friends or relatives? Once a week 06/26/2022 How often do you attend up health system or advent services? More than 4 times per year [...] in a alf (including now)? No 06/26/2022 PHQ-9 Answer Date [...] on file Legal Sex Female 12:56 PM WET PROCESS TECHNICIAN Gender Identity Female 11/17/2024 4:58 PM CDT [...] 03/22/2021, 02/16/2020, Additional history exists Covid-19 Vaccine (2024-2 6 season) 2025 02/01/2023, 02/06/2022, 04/30/2021, Additional history exists Influenza Vaccine (#1) 2025 , 02/01/2023, 02/01/2023, Additional history exists Albumin Creatinine Ratio, Urine 02/22/2025 02/23/2024, 12/23/2023, 03/11/2022, Additional history exists Well Visit 65+ 03/17/2025 03/17/2024, 090 01/2022, 11/07/2019, Additional history exists Osteoporosis Screening-Bone Density Scan 04/03/2025 04/03/2023, 08/20/2020 Foot Exam 04/27/2025 04/27/2024, 0 08/2023, 04/06/2023, Additional history exists Hemoglobin A1C 05/02/2025 10/31/2024, 04/10, 12/23/2023, Additional history exists Dilated Eye Exam 08/19/2025 08/19/2024, 02/2023, 05/20/2022, Additional history exists Lipid Panel 09/12/2025 09/12/2024, 12/09, 10/16/2022, Additional history exists Fall Risk Assessment 09/15/2025 09/15/2024, 03/17/2024, 10/16/2022, Additional history exists Depression Screening 10/25/2025 10/25/2024, 10/25/2024, 03/17/2024, Additional history exists eGFR 11/28/2025 11/28/2024, 09/2024, 06/13/2024, Additional history exists Colon Cancer [...] 08/24/2024, 10/18/2018 Medical Devices Implanted Type Area Rotary Drill Rig Operator Device Identifier Shelf Expiration Date Model / Serial / Lot Bard Peripheral Vascular [id number] Ultraclip Bard 17ga 12cm 2 Trigger Permanent Ultrasound - [id number] - [id number] Implanted:Qty: 1 on 05/09/2020 by Oc Amin MD at [facility] Breast Left: Breast [employer] 11/05/2022 [id number] / [id number] / Bard Peripheral Vascular [id number] Ultraclip Bard 17ga 10cm 2 Trigger Permanent Ultrasound - [id number] - [id number] Implanted:Qty: 1 on 05/09/2020 by Oc Amin MD at [facility] Breast Left: Breast [employer] 12/05/2022 [id number] / [id number] / Procedures Procedure Name Priority Date/Time Associated Diagnosis Comments SCAN - LABS 12/07/2024 SCAN - RADIOLOGY/IMAGING 12/07/2024 EGFR Routine 11/28/2024 11:10 AM CDT DIFFERENTIAL [...] with long-term current use of insulin (HCC) LIPID PANEL Routine 09/12/2024 9:00 AM CDT Dyslipidemia associated with type 2 diabetes mellitus (HCC) Hypertension associated with diabetes (HCC) COLONOSCOPY 08/24/2024 7:16 AM CDT HM DIABETES EYE EXAM Routine 08/19/2024 8:56 AM CDT ALBUMIN CREATININE RATIO, URINE Routine 02/23/2024 12:10 PM CDT DEXA AXIAL SKELETON BONE DENSITY 1 OR MORE SITES Schedule Routine, Read Routine (OP Routine) 04/03/2023 12:42 PM WET PROCESS TECHNICIAN At high risk for osteoporosis Age-related osteoporosis without current pathological fracture SCREENING MAMMOGRAM RIGHT W [place] UNILATERAL ONLY Schedule Routine, Read Routine (OP Routine) 03/28/2022 2:03 PM WET PROCESS TECHNICIAN Personal history of breast cancer Encounter for screening mammogram for malignant neoplasm of breast SERUM HEPATITIS C AB Routine 01/29/2015 11:36 AM CDT from Last 3 Months or Most Recently Relevant to Health Maintenance Results * SCAN - RADIOLOGY/IMAGING (12/07/2024) Anatomical Region Laterality Modality Other us Provider Scanning Final Result * SCAN - LABS (12/07/2024) us Provider Scanning Final Result * (ABNORMAL) eGFR (11/28/2024 11:10 AM CDT) [...] BLOOD ORDERABLES Fin al Result [facility] ([place]) 1 [facility] [place] [address] * Differential, auto (11/28/2024 11:10 AM CDT) Neutrophil abs 5.55 1.50 - 6.50 K/cumm Imm gran abs 0.04 0.00 - 0.10 K/cumm [facility] ([place]) Lymphocyte abs 1.04 0.80 - 3.30 K/cumm [facility] ([place]) Monocyte abs 0.59 0.20 - 0.80 K/cumm [facility] ([place]) Eosinophil abs 0.10 0.00 - 0.50 K/cumm [facility] ([place]) Basophil abs 0.04 0.00 - 0.10 K/cumm [facility] ([place]) Neutrophil pct 75.5 % [facility] ([place]) Comment: Interpretive Data Percent cell count reference [...] ORDERABLES Fin al Result Performing Organization Address City/[facility] Co de Phone Number [facility] ([place]) 1 [facility] [place] [address] * Iron profile w/ IBC (11/28/2024 11:10 AM CDT) Pathologist [facility] Iron 84 35 - 145 mcg/dL [facility] ([place]) TIBC 261 250 - 400 mcg/dL [facility] ([place]) Transferrin saturation 32 20 - 50 % [facility] ([place]) Blood 11/28/2024 11:1 0 AM CDT 11/28/2024 12:28 PM CDT us Ashu Arevalo MD LAB BLOOD ORDERABLES Fin al Result Performing Organization Address City/[facility]/ZIP Co de Phone Number [facility] ([place]) 1 [facility] [place] [address] * (ABNORMAL) CBC with auto differential (11/28/2024 11:10 AM CDT) WBC 7.36 3.80 - 9.90 K/cumm Hgb 9.8(L) 11.9 - 15.5 g/dL [facility] ([place]) Hct 30.9(L) 35.6 - 45.5 % [facility] ([place]) Plt 297 150 - 400 K/cumm [facility] ([place]) MPV 9.5 9.1 - 12.3 fL [facility] ([place]) RBC 3.32(L) 3.90 - 5.20 M/cumm [facility] ([place]) MCV 93.1 81.3 - 96.4 fL [facility] ([place]) MCH 29.5 27.1 - 33.3 pg [facility] ([place]) MCHC 31.7(L) 32.3 - 35.7 g/dL [facility] ([place]) RDW CV 15.0(H) 11.1 - 14.9 % [facility] ([place]) RDW SD 50.9(H) 35.7 - 48.1 fL [facility] ([place]) NRBC abs 0.00 0.00 - 0.01 K/cumm [facility] ([place]) Blood 11/28/2024 11:1 0 AM CDT 11/28/2024 12:28 PM CDT us Ashu Arevalo MD LAB BLOOD ORDERABLES Fin al Result [facility] ([place]) 1 [facility] [place] [address] * (ABNORMAL) 1,25 Dihydroxycholecalciferol (11/28/2024 11:10 AM CDT) 1-25-di-OH Vit D <8.0(L) 18 - 78 pg/mL [place] ref Lab Comment: ADDITIONAL INFORMATION This test was developed and its performance characteristics determined by [facility] in a manner consistent with CLIA requirements. This test has not been cleared or approved by the U.S. Food and Drug Administration. Test Performed by: [facility] - [address] [address] [employer] Ticket Checker: Starr Jones Ph.D.; CLIA# [id number] Blood 11/28/2024 11:1 0 AM CDT 11/28/2024 12:28 PM CDT us Ashu Arevalo MD LAB BLOOD ORDERABLES Fin al Result Performing Organization Address City/[facility]/ZIP Co de Phone Number [facility] ([place]) 1 [facility] [place] [address] [place] ref [facility] * Uric acid (11/28/2024 11:10 AM CDT) Uric acid 6.3 2.5 - 7.0 mg/dL [facility] ([place]) Blood 11/28/2024 11:1 0 AM CDT 11/28/2024 12:28 PM CDT us Ashu Arevalo MD LAB BLOOD ORDERABLES Fin al Result Performing Organization Address [facility] Co de Phone Number [facility] ([place]) 1 [facility] [place] [address] * (ABNORMAL) PTH (11/28/2024 11:10 AM CDT) Pathologist [facility] PTH 106(H) 18 - 58 pg/mL [facility] ([place]) Blood 11/28/2024 11:1 0 AM CDT 11/28/2024 12:28 PM CDT us Ashu Arevalo MD LAB BLOOD ORDERABLES Fin al Result Performing Organization Address [facility] Co de Phone Number [facility] ([place]) 1 [facility] [place] [address] * (ABNORMAL) Renal function panel (11/28/2024 11:10 AM CDT) Sodium 138 135 - 145 mmol/L [facility] ([place]) Potassium, pl 3.9 3.3 - 4.9 mmol/L [facility] ([place]) Chloride 102 97 - 110 mmol/L [facility] ([place]) CO2 25 22 - 32 mmol/L [facility] ([place]) Anion gap 11 2 - 15 mmol/L [facility] ([place]) BUN 65(H) 6 - 25 mg/dL [facility] ([place]) Creatinine 4.16(H) 0.60 - 1.10 mg/dL [facility] ([place]) Glucose 108 70 - 199 mg/dL [facility] ([place]) Comment: Interpretive Data Fasting glucose >/= [...] 2022. Calcium 8.9 8.5 - 10.3 mg/dL [facility] ([place]) Phosphorus, pl 4.0 2.3 - 4.5 mg/dL [facility] ([place]) Albumin 3.6 3.5 - 5.0 g/dL [facility] ([place]) Blood 11/28/2024 11:1 0 AM CDT 11/28/2024 12:28 PM CDT us Ahsu Arevalo MD LAB BLOOD ORDERABLES Fin al Result [facility] ([place] 1 [facility] [place] [address] * (ABNORMAL) POCT hemoglobin A1c (10/31/2024 10:40 AM CDT) Hemoglobin A1C, POC 6.3(A) 4.0 - 5.6 % Blood 10/31/2024 10:4 0 AM CDT us Inna Yepez NP POINT OF CARE TEST ORDERABLES F inal Result * Lipid panel (09/12/2024 9:00 AM CDT) [...] on 2023. Non-HDL Cholesterol 126 mg/dL [facility]) Comment: Interpretive Data Ages [...] ORDERABLES Final Result [facility] ([place]) 1 [facility] [place] [address] * Colonoscopy (08/24/2024 7:16 AM CDT) Anatomical Region Laterality Modality Other Narrative Procedure Note Nathan Brooks, - 08/24/2024 7:16 AM CDT [facility] Patient Name: Dana Mejia Procedure Date: 08/24/2024 7:16 AM Date of : 1955 Admit Type: Outpatient Age: 68 Gender: Female Attending MD: Nathan Brooks D.O. Room: [facility] ENDOSCOPY ROOM 3 Note Status: Finalized Patient [...] Follow immediately with the 2nd glass ofwater. [employer] per labelinstructions. MiraLax 1 capful 1-2 times [...] passed under direct vision. The Pediatric Colonoscope [id number] was introduced through the anus and advanced [...] 7:16 AM Procedure Code(s): --- Professional --- 62195, Colonoscopy, flexible; with biopsy, single or multiple --- Technical --- 25327, Colonoscopy, flexible; with biopsy, single or multiple [...] perforation orabscess without bleeding CPT copyright 2020 [employer]. All rights reserved. The codes documented in this report are preliminary and upon framing mill operator helper reviewmay be revised to meet current compliance requirements. Recognized by the [employer] for promoting quality in endoscopy Nathan Brooks DO ENDOSCOPY PROCEDURES Final Res ult * (ABNORMAL) DIABETES EYE EXAM (08/19/2024 8:56 AM CDT) Impressions Rose Mary Hartman, MA - 08/19/2024 8:56 AM CDT Positive for non-proliferative diabetic retinopathy. Historical Provider [facility] Edited Result - Final * (ABNORMAL) Albumin Creatinine Ratio, Urine (02/23/2024 12:10 PM CDT) Albumin Ur 1,424.9 mg/L Comment: Interpretive Data No reference range established. Current interpretive data was last revised 2018. Testing performed by: [facility], [address] [place] [address]., [id number] Creatinine Ur 128.1 mg/dL OSMIN ESTRADA (ERASMO) Comment: Interpretive Data No reference range established. Current interpretive data was last revised 2018. Testing performed by: [facility], [address] [place] [address]., [id number] Albumin Creatinine Ratio, Ur 1,112(H) 1 - 29 mg/g OSMIN ESTRADA (ERASMO) Comment:Testing performed by : [facility], [address] [place] [address]., [id number] Urine 02/23/2024 12:1 0 PM CDT 02/23/2024 9:33 PM CDT Ashu Arevalo MD LAB URINE ORDERABLES Fin al Result OSMIN ESTRADA ERASMO) 1 [facility] Department of Laboratories [place], [place] [id number] * Dexa Axial Skeleton Bone Density 1 or 2 Site (04/03/2023 12:42 PM WET PROCESS TECHNICIAN) Anatomical Region Laterality Modality Body N/A Other 04/03/2023 1:05 PM WET PROCESS TECHNICIAN Narrative 04/03/2023 1:05 PM WET PROCESS TECHNICIAN EXAM DESCRIPTION: DEXA AXIAL SKELETON BONE DENSITY 1 OR MORE SITES REASON FOR STUDY: 67 y/o year old F with given history of: history of AI therapy Osteoporosis screening Post menopausal Rotary Drill Rig Operator/Model: [employer] SL ([id number]/N [id number]) CLINICAL INFORMATION: Current height: 65 inches Maximum [...] Vini Kaur M.D. 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 MF: TOBIN Report ID: [id number] Reading Location: [place] [address] MRI TECHNOLOGIST IMG DXA PROCEDURES Fi nal Result * Screening Mammogram Right W Wesley Unilateral Only (03/28/2022 2:03 PM WET PROCESS TECHNICIAN) Anatomical Region Laterality Modality Breast Right Mammography Narrative 03/28/2022 3:58 PM WET PROCESS TECHNICIAN Mammogram Technique: Right Breast Digital Breast Tomosynthesis, Unilateral C-view 2D Screening mammogram. Views obtained: bilateral craniocaudal and bilateral mediolateral oblique. Computer Aided Detection was performed. Mammogram Findings: The present examination has been compared to prior imaging studies performed on 02/16/2020, at [facility]. [facility] on 04/17/2020 and 05/09/2020, and at [facility] on 03/22/2021. The breast is heterogeneously dense, [...] prior imaging studies performed on 02/16/2020, at [facility]. [facility] on 04/17/2020 and 05/09/2020, and at [facility] on 03/22/2021. The breast is heterogeneously dense, [...] Insurance [facility] UHC MEDICARE ADVANTAGE [facility] MEDIC[facility] Address: [address] [address] [place] [address] [facility] MEDICARE ADVANTAGE [facility] MEDICARE ADVANTAGE [employer] Advance Directives For more information, please contact: [phone] * Full Code (Latest Code Status on [...] 8:34 AM 10/18/2018 8:35 AM Care Teams Rehabilitation Medicine Physician Relationship Specialty Start Date End Date Vijay Truong MD [address] [place] [address] PCP - General 08/08/16 Rubén Miranda MD PhD [address] [place] [address] Radiation Oncologist Radiation Oncology 07/27/20 Lila James MD [address] [address] Referring Physician Surgical Oncology 07/27/20 Emile Berger MD [address] [place] [address] Referring Physician Psychiatry & Neurology 02/05/22 Ash Fraga MD [address] [place] [address] Medical Oncologist/Radiology Services Manager Hematology and Oncology 06/11/22
--- OUTSIDE RECORDS SUMMARY | 2025-02-22 22:03 | XMS_ITS | Clinical Summary ---
Author Organization [facility] Address [address] [place] [address] Care Team Providers Care Erisa Attorney Name Role Phone Vijay Truong MD Primary Care Provider [phone] Source Comments [facility],non-owned Affiliates and Associated Physician Practices is amultiple site organization consisting of ambulatory clinics and hospital sitesin [place], [place], [place] and [place]. This disclosure is being madepursuant to the Care Everywhere program and may not contain all information available regarding this patient. 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 MANAGED MEDICARE ADV Care Teams Erisa Attorney Relationship Specialty Start Date End Date Vijay Truong MD [address] [place] [address] PCP - General Internal Medicine 01/06/24
[2025-02-22 22:04] VITALS: PULSE 78; RESP 14
--- NOTE | 2025-02-22 23:59 | ED.GENADULT ---
HPI - General Adult General Chief complaint: Extremity Problem,Nontraumatic Stated complaint: LUE swelling Time Seen by Provider: 02/22/25 21:16 Related Data Home Medications ?Medication ?Instructions ?Recorded ?Confirmed ?Last Taken ?Type aspirin 81 mg tablet,delayed 81 mg PO DAILY 09/15/22 10/14/24 Unknown History release atorvastatin 40 mg tablet 40 mg PO DAILY 09/15/22 10/14/24 10/14/24 History clopidogrel 75 mg tablet 75 mg PO DAILY 09/15/22 10/14/24 10/14/24 History duloxetine 30 mg capsule,delayed 30 mg PO BID 09/15/22 10/14/24 10/14/24 History release letrozole 2.5 mg tablet 2.5 mg PO DAILY 09/15/22 10/14/24 10/14/24 History lisinopril 10 mg tablet 20 mg PO DAILY 09/15/22 10/14/24 10/14/24 History sertraline 50 mg tablet (Zoloft) 50 mg PO DAILY 09/15/22 10/14/24 10/14/24 History trazodone 100 mg tablet 100 mg PO HS 09/15/22 10/14/24 10/14/24 History calcitriol 0.25 mcg capsule 0.25 mcg PO .MWF 10/14/24 10/14/24 10/12/24 History calcium carb-ergocalciferol (vit 1 tablet PO DAILY 10/14/24 10/14/24 10/14/24 History D2) 600 mg calcium-200 unit tablet insulin glargine 100 unit/mL (3 18 unit subcut QPM 10/14/24 10/14/24 10/13/24 History mL) subcutaneous pen (Lantus Solostar U-100 Insulin) pantoprazole 40 mg tablet,delayed 40 mg PO DAILY 10/14/24 10/14/24 10/14/24 History release pen needle, diabetic 31 gauge x 10/14/24 10/14/24 Unknown History 09/23 (Sure Comfort Pen Needle) Allergies Allergy/AdvReac Type Severity Reaction Status Date / Time No Known Allergies Allergy Verified 12/07/24 14:03 [facility] Past Medical History Medical History (Updated 02/23/25 @ 00:00 by Jimmy Leon MD) Abnormal colonoscopy history of colon polyps August 2024 Breast cancer GERD (gastroesophageal reflux disease) Hyperlipidemia Essential hypertension CVA (cerebral vascular accident) Chronic kidney disease Diabetic peripheral neuropathy Diabetes mellitus Surgical History Surgical History History of cardiac catheterization Status post creation of arteriovenous fistula History of total abdominal hysterectomy and bilateral salpingo-oophorectomy Family History Family History Father Lung cancer Grandparent Diabetes mellitus Social History Social History Social History: Code status: Full code (per EMR) Surrogate decision maker: Alvaro Galaviz (son) Smoking packs per day: 2 Smoking cigarettes per day: 40.0 Smoking status: Former smoker Tobacco type: cigarettes Alcohol intake: never Substance use: never Do You Feel Safe in your Home?: Yes Lack of Transportation: No Lack of Food: Never True Current Housing: I Have Housing Concerned About Future Housing: No Difficulty Paying Gas/Electric Bills: No Difficulty Paying for Meds: YES Currently Unemployed: No Education: High School Diploma/GED Difficulty w/ Childcare or Family Care: No Additional living arrangements comments: She has lived with her son since approximately 2019. She ambulates with a walker. 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 She raised 3 sons. Spiritual care concerns: Yes Course Vital Signs Vital signs: Vital Signs Temperature 36.7 C 02/22/25 19:30 Pulse Rate 82 02/22/25 19:30 Respiratory Rate 21 H 02/22/25 19:30 Blood Pressure 173/63 H 02/22/25 19:30 Pulse Oximetry 99 02/22/25 19:30 Oxygen Delivery Room Air 02/22/25 19:30 Temperature 36.7 C 02/22/25 19:30 Pulse Rate 78 02/22/25 22:04 Respiratory Rate 14 02/22/25 22:04 Blood Pressure 221/89 H 02/22/25 21:47 Pulse Oximetry 98 02/22/25 21:47 Oxygen Delivery Room Air 02/22/25 19:30 Medical Decision Making Vital Signs Vital Signs: Vital Signs Temperature 36.7 C 02/22/25 19:30 Pulse Rate 82 02/22/25 19:30 Respiratory Rate 21 H 02/22/25 19:30 Blood Pressure 173/63 H 02/22/25 19:30 Pulse Oximetry 99 02/22/25 19:30 Oxygen Delivery Room Air 02/22/25 19:30 Temperature 36.7 C 02/22/25 19:30 Pulse Rate 78 02/22/25 22:04 Respiratory Rate 14 02/22/25 22:04 Blood Pressure 221/89 H 02/22/25 21:47 Pulse Oximetry 98 02/22/25 21:47 Oxygen Delivery Room Air 02/22/25 19:30 Lab Data 02/22/25 21:36 02/22/25 21:36 Labs: Lab Results 02/22/25 Range/Units 21:36 WBC 9.3 (4.5-10.0) K/mm3 RBC 2.84 L (4.2-5.4) M/mm3 Hgb 8.5 L (12.0-15.0) g/dL Hct 26.3 L (37.0-47.0) % MCV 92.6 (80-100) fl MCH 29.9 (26-34) pg MCHC 32.3 (32-36) g/dl RDW 13.2 (11.5-14.5) % Plt Count 249 (150-375) k/mm3 MPV 9.2 (7.4-10.4) fl Immature Gran % (Auto) 0.5 (0-0.5) % Neut % (Auto) 76.0 H (45.5-73.1) % Lymph % (Auto) 13.0 L (18.3-44.2) % [place] % (Auto) 9.2 H (2.6-8.5) % Eos % (Auto) 0.9 (0-4.4) % Baso % (Auto) 0.4 (0.2-1.2) % Lymph # (Auto) 1.21 (0.9-3.2) K/mm3 [place] # (Auto) 0.9 H (0.1-0.6) K/mm3 Eos # (Auto) 0.1 (0-0.3) K/mm3 Baso # (Auto) 0.0 (0.0-0.1) K/mm3 Abs Immat Gran (auto) 0.05 H (0.00-0.031) K/mm3 Absolute Neuts (auto) 7.1 H (1.3-6.7) K/mm3 Absolute Nucleated RBC 0.000 (0.0-0.012) K/mm3 Nucleated RBC % 0.0 (0.0-0.2) % PT 12.4 (11.1-14.7) Seconds INR 0.9 APTT 24.6 (22.3-36.8) Seconds Sodium 135 L (137-145) mmol/L Potassium 4.7 (3.4-5.0) mmol/L Chloride 101 (98-107) mmol/L Carbon Dioxide 23 (22-30) mmol/L Anion Gap 11 (4-12) mmol/L BUN 77 H (7-17) mg/dL Creatinine 4.63 H (0.7-1.0) mg/dL Estim Creat Clear Calc 10 ml/min Estimated GFR 9 L (59 - ) Glucose 180 H (65-110) mg/dL Calcium 8.4 (8.4-10.2) mg/dL Magnesium 2.0 (1.6-2.3) mg/dL Total Bilirubin 0.2 (0.2-1.3) mg/dL AST 27 (14-36) U/L ALT 18 (6-35) U/L Alkaline Phosphatase 99 (38-126) U/L Troponin I 0.015 (0.000-0.034) ng/mL NT-Pro-B Natriuret Pep 3470 H (19.9-100) pg/mL Total Protein 7.0 (6.3-8.2) g/dL Albumin 3.5 (3.5-5.1) g/dL Discharge Plan Discharge Clinical Impression: Acute deep vein thrombosis of left upper extremity Patient Disposition: Home Condition: Stable Instructions: Antibiotic Form, Deep Vein Thrombosis (ED) Additional Instructions: Your ultrasound showed evidence of a blood clot in your left arm. Your started on a blood thinner it is recommended that you follow-up with your primary care provider for continued management. Patient Language: Romanian Prescriptions: [place] DVT-PE Treat 30D Start 5 mg (74 tabs) tablets,dose pack See Rx Instructions .ROUTE .COMPLEX Qty: 74 0RF Rx Instructions: orally per package directions No Action calcium carbonate-vitamin D2 600 mg calcium- 200 unit tablet 1 tablet PO DAILY calcitriol 0.25 mcg capsule 0.25 mcg PO .MWF atorvastatin 40 mg tablet 40 mg PO DAILY clopidogrel 75 mg tablet 75 mg PO DAILY aspirin 81 mg tablet,delayed release (DR/EC) 81 mg PO DAILY trazodone 100 mg tablet 100 mg PO HS lisinopril 10 mg tablet 20 mg PO DAILY letrozole 2.5 mg tablet 2.5 mg PO DAILY sertraline [Zoloft] 50 mg tablet 50 mg PO DAILY duloxetine 30 mg capsule,delayed release(DR/EC) 30 mg PO BID pantoprazole 40 mg tablet,delayed release (DR/EC) 40 mg PO DAILY (DME) pen needle, diabetic [Sure Comfort Pen Needle] 31 gauge x 5/16 needle MISCELLANEOUS insulin glargine [Lantus Solostar U-100 Insulin] 100 unit/mL (3 mL) insulin pen 18 unit SUBCUT QPM amoxicillin-pot clavulanate [Augmentin] 500-125 mg Tablet 1 tablet PO Q12HR 11 Days Qty: 22 0RF doxycycline hyclate 100 mg tablet 100 mg PO BID 11 Days Qty: 22 0RF cephalexin 500 mg capsule 500 mg PO Q12H Qty: 20 0RF Follow-up/Referrals: Harms,Vijay Ortiz M.D. [Primary Care Provider] Time of Disposition: 00:02
[2025-02-23] MEDS: APIXABAN 5 MG TABLET 10 MG PO (00:10)
== END 2025-02-23 00:29 | disposition home or self-care (01) ==
PROVIDERS: Emergency Provider Emergency Medicine; PCP Family Medicine
DX: I82.622 Acute embolism and thrombosis of deep veins of left upper extremity (principal); I12.9 Hypertensive chronic kidney disease with stage 1 through stage 4 chronic kidney disease, or unspecified chronic kidney disease; E11.22 Type 2 diabetes mellitus with diabetic chronic kidney disease; N18.9 Chronic kidney disease, unspecified; E11.42 Type 2 diabetes mellitus with diabetic polyneuropathy; E78.5 Hyperlipidemia, unspecified; K21.9 Gastro-esophageal reflux disease without esophagitis; Z86.73 Personal history of transient ischemic attack (TIA), and cerebral infarction without residual deficits; Z85.3 Personal history of malignant neoplasm of breast; Z87.891 Personal history of nicotine dependence; Z90.710 Acquired absence of both cervix and uterus; Z90.79 Acquired absence of other genital organ(s); Z90.722 Acquired absence of ovaries, bilateral; Z79.02 Long term (current) use of antithrombotics/antiplatelets; Z79.82 Long term (current) use of aspirin; Z79.4 Long term (current) use of insulin; Z79.899 Other long term (current) drug therapy; R94.31 Abnormal electrocardiogram [ECG] [EKG]
CPT/HCPCS: 36415; 71045; 80053; 83735; 83880; 84484; 85025; 85610; 85730; 93005; 93971; 99284; A9270